=== PATIENT | female | born 1945 | race Caucasian/White ===

== ENCOUNTER → 2016-08-11 | Day surgery (SDC) | payer BC ==
[2016-07-28 09:38] VITALS: Ht 167.6 cm; Wt 121.4 kg
[~2016-08-11] VITALS: Ht 167.6 cm; Wt 121.4 kg
[~2016-08-11] MED LIST: 500ML BSS 0.3ML EPI 1:1000PF IRRIG ONE; ACET1TAB84 PO; ACETAMINOPHEN 325 MG TAB PO PRN; ACP20 PO; ALBU18002 INH; ALBU1AER9 INH; AMLO2.5T PO; AMVISC PLAIN 0.8ML SYRINGE INT OCU ONE; AMVISC PLUS 0.8ML SYRINGE INT OCU ONE; ATROPINE SULFATE 0.1 MG/ML 5ML SYR IV PRN; BACL1TAB PO; BMX1 PO; BROM0.07 OPL; BSS FLUSH ONE; CALC-354 PO; CLTP PO; CNT PO; CYM/30 PO; CZR50 PO; DABI150C PO; DICL1GEL28 TOP; DICL1GEL34 PO; DIGO0.1219 PO; DIGO0.122 PO; DOFE250C PO; DULO-24 PO; EpHEDrine SULFATE INJ 50 MG/ML AMP IV PRN; EpINEphrine INJ 1MG/ML AMP 1 MG/ML AMP ONE; FENTANYL CITRATE INJ 50 MCG/1 ML 2 ML VIAL IV PRN; FLUMAZENIL 0.1 MG/1 ML 10 ML VIAL IV PRN; GATI1SOL2 OP; GATIFLOXACIN OP SOLN PER DROP CHARGE OPL SCH; HYDROmorphone INJ 2 MG/ML SYR/VIAL IV PRN; JUICE PLUS PO; LABETALOL HCL IV 5 MG/ML 20ML IV PRN; LACTATED RINGER'S 1000ML 500 ML IV SCH; LEVO150T9 PO; LIDOCAINE 3.5% OPH GEL PER APPLICATION CHARGE ONE; LIDOCAINE HCL 1% MPF 2 ML VIAL ONE; LOSA1TAB38 PO; MEPERIDINE HCL 25 MG/ML CARP IV PRN; METO100T14 PO; MIDAZOLAM HCL 1 MG/ML 2ML VIAL ONE; MULTTAB PO; NALOXONE HCL 0.4 MG/1 ML VIAL/CARP IV PRN; NAPR1TAB9 PO; OCUCOAT 1 ML SOLN IO ONE; ONDANSETRON INJ 2 MG/ML 2 ML VIAL IV PRN; OXGN; OXYC1TAB3 PO; PHENYLEPHRINE 100MCG/ML 5ML SYR IV PRN; POVIDONE-IODINE OP SOLN 30 ML BTL ONE; PRDFOPS OPL; PREG200C PO; PROAIR INH; PROPARACAINE 0.5% OP SOLN PER DROP CHARGE OPL SCH; PSEU60TA80 PO; RABE20TA5 PO; TOBRAMYCIN/DEXAMETHASONE OPH OINT PER APPLN CHARGE ONE; TRML160 EXT; ZOLP5TAB PO; [UNRECOGNIZED DRUG - CODE] PO
[2016-08-11] MEDS: PHENYLEPHRINE HCL 2.5% OP SOLN PER DROP CHARGE OPL SCH ×2 (09:19→09:24)
[2016-08-11] MEDS: TROPICAMIDE 1% OP SOLN PER DROP CHARGE OPL SCH ×2 (09:20→09:25)
[2016-08-11] MEDS: CYCLOPENTOLATE HCL 1% OP SOLN PER DROP CHARGE OPL SCH ×2 (09:21→09:26)
[2016-08-11] MEDS: KETOROLAC 0.5% OP SOLN PER DROP CHARGE OPL SCH ×2 (09:22→09:27)
--- NOTE | 2016-08-11 09:36 | History & Physical Bridge - [place] ---
H&P Re-Evaluation Bridge Note: I have examined the patient, reviewed the History & Physical and in the interval since the performance of the History & Physical I have noted the following changes of clinical significance: Diagnosis: Left Cataract Procedure: Left Cataract Removal with Lens Implant No changes noted
--- NOTE | 2016-08-11 10:20 | Discharge Instructions-SurgCtr ---
Discharge Instructions Visit Reason for Visit: Cataract Left Eye Discharge Discharge Diagnosis / Problem: cataract Discharge Goals Goal(s): Improve function Activity Recommendations Activity Limitations: per Instructions/Follow-up section Anesthesia . Post Anesthesia Instructions: If you have had General Anesthesia or IV Sedation: * Do not drive today. * Resume driving when surgeon permits. * Do not make important decisions or sign legal documents today. * Call surgeon for: 1. Temperature elevations greater than 101 degrees F. 2. Uncontrollable pain. 3. Excessive bleeding. 4. Persistent nausea and vomiting. 5. Medication intolerance (nausea, vomiting or rash). * For nausea and vomiting use only clear liquids such as: tea, soda, bouillon until nausea subsides, then gradually increase diet as tolerated. * If you have any concerns or questions, call your surgeon's office. If physician is unavailable and it is an emergency, call 911 or go to the nearest emergency room. . Instructions / Follow-Up Instructions / Follow-Up ACTIVITY RECOMMENDATIONS: * No strenuous lifting, jogging or running for 4 days * No swimming or yard work for 1 week. * Limited bending is permitted, such as putting on shoes. RETURN TO SCHOOL/WORK: No work until seen by physician in office. MEDICATIONS: Resume previous medications unless instructed otherwise by your surgeon. This includes eye drops for glaucoma. Zymaxid/Gatifloxacin (wakefield cap) - one drop every 2 hours until bedtime Nevanac/Ilevro/Prolensa/Ketorolac (sin cap) - one drop every 4 hours until bedtime Prednisolone (white/pink cap, SHAKE WELL) - one drop every 2 hours until bedtime Starting tomorrow - all 3 drops every 4 hours until seen in the office Optive drops - as needed for discomfort SPECIAL CARE INSTRUCTIONS: * Wear eyeshield when sleeping, for four nights. * You may wear your own glasses or sunglasses while awake. * You may read or watch TV * You may shower and wash your face, but be gentle around the eye and pat dry. * Blurry vision and mild irritation are normal. * Call office if pain is more severe or vision becomes dark at . FOLLOW UP VISIT: Follow-up with Dr Cruz tomorrow. Diet Recommendations Home Diet: resume previous diet Procedures Procedures Performed: Left Cataract Phacoemulsification With Intraocular Lens Implant; Toric Lens Pending Studies Studies pending at discharge: no Medical Emergencies . Who to Call and When: Medical Emergencies: If at any time you feel your situation is an emergency, please call 911 immediately. . Non-Emergent Contact Non-Emergency issues call your: Video Journalist . . "Provider Documentation" section prepared by Evelio Cruz.
--- NOTE | 2016-08-11 10:22 | [facility] Operative Report ---
Operative Report 1. PREOPERATIVE DIAGNOSIS: Cataract of the left eye. 2. POSTOPERATIVE DIAGNOSIS: Same. 3. PROCEDURE: Phacoemulsification with intraocular lens implantation of the left eye. SURGEON: Dr. Evelio Cruz. ANESTHESIA: Topical Lidocaine gel, 1% Non- Preserved intracameral Lidocaine, and monitored intravenous sedation. INDICATIONS FOR THE PROCEDURE: The patient is a 70 - year-old female with a history of cataract of the left eye causing significant visual impairment. The details of the proposed procedure were explained to the patient who asked appropriate questions and following discussion of all risks, benefits and alternatives agreed to have the procedure done. Patient had corneal astigmatism and therefore elected to have a toric lens placed. 4. OPERATION AND FINDINGS: DESCRIPTION OF PROCEDURE: After informed consent was obtained, the patient was placed in an upright position and the cornea was marked at 167 degrees using the [employer] corneal marking tool. The patient was brought to the Operating Room at the [facility]. The patient was placed in a supine position and then the left eye was prepped and draped in the usual sterile fashion for intraocular surgery. A drop of topical Lidocaine gel was placed in the operative eye. A wire lid speculum was then placed in the fornices. A corneal paracentesis was then created temporally. The Non-Preserved Lidocaine was then instilled into the anterior chamber. The anterior chamber was then pressurized with viscoelastic. A 2.0 mm clear corneal incision was then created temporally. A cystotome was inserted into the anterior chamber and used to create a tear in the anterior lens capsule. This capsular tear was then used to create a small flap and the flap was dragged in a counterclockwise direction in order to create a continuous curvilinear capsulorrhexis. Hydrodissection was accomplished with balanced salt solution. Phacoemulsification of the lens nucleus was then performed in a standard divide- and-conquer technique. The phaco time was 35 seconds with an average power of 15 %. The remaining cortical material was removed using irrigation aspiration. The capsular bag was then filled with viscoelastic. A Peter [id number] +24.0 diopters lens was then loaded into the injector and injected into the capsular bag. The lens was aligned with the previously made corneal cheng. The remaining viscoelastic was removed with the irrigation aspiration handpiece. The wound was hydrated and then checked and found to be watertight. The intraocular pressure was checked and found to be adequate. The wire lid speculum was removed and the patient's face was cleaned and dried. TobraDex ointment was placed in the inferior fornix. The patient was discharged to the Recovery Room having tolerated the procedure well. There were no complications. The patient will be seen tomorrow in the office for follow-up. I attest to the content of the Intraoperative Record and any orders documented therein. Any exceptions are noted below.
--- NOTE | 2016-08-11 10:36 | Anesthesia Progress Nt - [facility] ---
Anesthesia Post Op Note Date & Time Aug 11, 2016 at 10:35 Vital Signs Pain Intensity: 0 Vital Signs Past 12 Hours Date Time Temp Pulse Resp B/P Pulse Ox O2 Delivery O2 Flow Rate FiO2 08/11/16 10:24 37.5 53 16 105/51 95 Room Air 08/11/16 09:08 37.1 92 16 111/79 96 Room Air Notes Mental Status: alert / awake / arousable, participated in evaluation Pt Amnestic to Procedure: Yes Nausea / Vomiting: adequately controlled Pain: adequately controlled Airway Patency, RR, SpO2: stable & adequate BP & HR: stable & adequate Hydration State: stable & adequate Anesthetic Complications: no major complications apparent
[2016-08-11 10:54] VITALS: BP 112/67; PULSE 48; TEMP 37.4; O2SAT 95
== END | disposition home or self-care (01) ==
LOC: X.SURG 08:48
PROVIDERS: ATTEND Ophthalmology
DX: H26.9 Unspecified cataract (principal); H54.7 Unspecified visual loss; E05.00 Thyrotoxicosis with diffuse goiter without thyrotoxic crisis or storm; M45.9 Ankylosing spondylitis of unspecified sites in spine; G89.29 Other chronic pain; M25.50 Pain in unspecified joint; E11.9 Type 2 diabetes mellitus without complications; E66.01 Morbid (severe) obesity due to excess calories; I48.91 Unspecified atrial fibrillation; M19.90 Unspecified osteoarthritis, unspecified site; N18.3 Chronic kidney disease, stage 3 (moderate); I12.9 Hypertensive chronic kidney disease with stage 1 through stage 4 chronic kidney disease, or unspecified chronic kidney disease; Z68.41 Body mass index [BMI] 40.0-44.9, adult

== ENCOUNTER 2016-08-13 18:39 | Observation (INO) | payer BC, OTHER ==
[~2016-08-13] VITALS: Ht 167.6 cm; Wt 122.9 kg
[~2016-08-13 18:39] MED LIST changes: -500ML BSS 0.3ML EPI 1:1000PF IRRIG ONE; -ACETAMINOPHEN 325 MG TAB PO PRN; -ALBU18002 INH; -AMVISC PLAIN 0.8ML SYRINGE INT OCU ONE; -AMVISC PLUS 0.8ML SYRINGE INT OCU ONE; -ATROPINE SULFATE 0.1 MG/ML 5ML SYR IV PRN; -BROM0.07 OPL; -BSS FLUSH ONE; -CALC-354 PO; -DICL1GEL34 PO; -DIGO0.1219 PO; -EpHEDrine SULFATE INJ 50 MG/ML AMP IV PRN; -EpINEphrine INJ 1MG/ML AMP 1 MG/ML AMP ONE; -FENTANYL CITRATE INJ 50 MCG/1 ML 2 ML VIAL IV PRN; -FLUMAZENIL 0.1 MG/1 ML 10 ML VIAL IV PRN; -GATI1SOL2 OP; -GATIFLOXACIN OP SOLN PER DROP CHARGE OPL SCH; -HYDROmorphone INJ 2 MG/ML SYR/VIAL IV PRN; -LABETALOL HCL IV 5 MG/ML 20ML IV PRN; -LACTATED RINGER'S 1000ML 500 ML IV SCH; -LIDOCAINE 3.5% OPH GEL PER APPLICATION CHARGE ONE; -LIDOCAINE HCL 1% MPF 2 ML VIAL ONE; -LOSA1TAB38 PO; -MEPERIDINE HCL 25 MG/ML CARP IV PRN; -MIDAZOLAM HCL 1 MG/ML 2ML VIAL ONE; -MULTTAB PO; -NALOXONE HCL 0.4 MG/1 ML VIAL/CARP IV PRN; -NAPR1TAB9 PO; -OCUCOAT 1 ML SOLN IO ONE; -ONDANSETRON INJ 2 MG/ML 2 ML VIAL IV PRN; -PHENYLEPHRINE 100MCG/ML 5ML SYR IV PRN; -POVIDONE-IODINE OP SOLN 30 ML BTL ONE; -PRDFOPS OPL; -PROAIR INH; -PROPARACAINE 0.5% OP SOLN PER DROP CHARGE OPL SCH; -RABE20TA5 PO; -TOBRAMYCIN/DEXAMETHASONE OPH OINT PER APPLN CHARGE ONE; -TRML160 EXT; -ZOLP5TAB PO
[2016-08-13 19:48] LABS: BASO % 0.5 %; BASO ABS # 0.04 K/uL (0-0.2); COMPLETE YES; EOS % 3.3 %; HEMATOCRIT 41.9 % (37-47); IG% 0.4 %; LYMPH % 20.3 %; LYMPH ABS # 1.54 K/uL (1.2-3.4); MEAN CELL VOLUME 87.1 fL (80-100); MEAN CORPUSCULAR HEMOGLOBIN 28.9 pg (25-34); MEAN CORPUSCULAR HGB CONC 33.2 g/dl (32-36); MEAN PLATELET VOLUME 10.1 fL (7.4-10.4); MONO % 11.7 %; NEUT % 63.8 %; PLATELET COUNT 194 K/uL (130-400); RED BLOOD COUNT 4.81 M/uL (4.2-5.4); WHITE BLOOD COUNT 7.59 K/uL (4.8-10.8)
[2016-08-13] MEDS ORDERED: GATI1SOL2 OP (19:56)
[2016-08-13 19:57] LABS: PARTIAL THROMBOPLASTIN RATIO 1.3; PROTHROMBIN TIME (PATIENT) 10.8 SECONDS (9.0-12.0)
[2016-08-13] MEDS ORDERED: BMX1 PO (19:59)
--- NOTE | 2016-08-13 19:59 | DIAGNOSTIC IMAGING REPORT ---
CHEST ONE VIEW PORTABLE HISTORY: Atypical chest pain. COMPARISON: Chest 03/26/2015. FINDINGS: There is a right shoulder prosthesis. Lumbar spinal fusion hardware is again noted. Linear density at the left lung base favors subsegmental atelectasis or scarring. The lungs are otherwise clear. The heart is normal in size. No pleural effusions. No pneumothorax. IMPRESSION: Left basilar linear density which favors subsegmental atelectasis or scarring. Otherwise, no acute process within the chest. Electronically signed by: Librado Mena M.D. 08/13/2016 7:57 PM Dictated Date/Time: 08/13/2016 7:56 PM
[2016-08-13] MEDS ORDERED: DIGO0.1219 PO (20:03)
[2016-08-13] MEDS ORDERED: DICL1GEL34 PO (20:03)
[2016-08-13 20:06] LABS: BUN/CREATININE RATIO 18.8 (10-20); CALCIUM 9.6 mg/dl (8.5-10.1); CREATININE 1.1 mg/dl (0.60-1.20); POTASSIUM 4.1 mmol/L (3.5-5.1)
[2016-08-13] MEDS ORDERED: PROAIR INH (20:08)
[2016-08-13] MEDS ORDERED: MULTTAB PO (20:08)
[2016-08-13] MEDS ORDERED: LOSA1TAB38 PO (20:08)
[2016-08-13] MEDS ORDERED: RABE20TA5 PO (20:08)
[2016-08-13] MEDS ORDERED: PRDFOPS OPL (20:08)
[2016-08-13] MEDS ORDERED: BROM0.07 OPL (20:08)
[2016-08-13] MEDS ORDERED: NITROGLYCERIN 0.4 MG SL PER TAB CHARGE SL PRN (21:15)
[2016-08-13] MEDS ORDERED: ONDANSETRON INJ 2 MG/ML 2 ML VIAL IV PRN (21:15)
[2016-08-13] MEDS ORDERED: ALBU18002 INH (21:28)
[2016-08-13] MEDS ORDERED: NAPR1TAB9 PO (21:28)
[2016-08-13] MEDS ORDERED: ZOLP5TAB PO (21:28)
[2016-08-13] MEDS ORDERED: CALC-354 PO (21:28)
[2016-08-13] MEDS ORDERED: TRML160 EXT (21:28)
[2016-08-13] MEDS ORDERED: BACLOFEN 10 MG TAB PO PRN (21:30)
[2016-08-13] MEDS ORDERED: ALBUTEROL HFA 8 GM INHALER INH PRN (21:30)
[2016-08-13] MEDS ORDERED: DICLOFENAC SOD 1% GEL 100 GM TUBE EXT PRN (21:30)
[2016-08-13] MEDS ORDERED: ASPIRIN 81 MG CHEW PO ONE (21:30)
[2016-08-13] MEDS ORDERED: ZOLPIDEM TARTRATE 5 MG TAB PO PRN (21:30)
[2016-08-13] MEDS ORDERED: IV FLUIDS COMPLETED PRN (21:45)
--- NOTE | 2016-08-13 22:12 | History and Physical ---
History & Physical Date & Time of Service: Aug 13, 2016 at 21:28 Chief Complaint: Chest Pain/Tightness Primary Care Physician: Samra Nieves M.D. History of Present Illness Source: patient, clinic records, hospital records This is a pleasant 70 y/o female with PMH of Afib on chronic anticoagulation with Pradaxa, diastolic CHF, DM 2, morbid obesity, TIERRA on CPAP and nocturnal O2 , CKD stage III, who presents to the ED for chest pain. Pt sees Dr. Nieves for primary care and Dr. Lopez for cardiology. Pt had cataract surgery 2 days ago which was uneventful and she was feeling normally. Then this afternoon while sitting watching a movie she suddenly developed substernal chest tightness with radiation to her jaw and tongue. The pain was constant for approximately 25 minutes then waxed and waned for additional 20 minutes before resolving completely. She was not exerting herself during the episode. She did not take any medication. In the ER she remains chest pain free. She denies prior similar CP. Pt has associated mild frontal pressure YOUNG which persists. She states she is only MARTIN walking up 1 set of stairs during episodes of atrial fibrillation. She usually can tell she is AF due to fatigue, but denies feeling this way recently. She reports chronic burning pain of bilateral feet and spasms in bilateral calves. She takes oxycodone for her LE pains. Denies associated diaphoresis, dizziness, N/V, reflux, palpitations, cough, wheezing, SOB, edema, wt gain, rash on the chest, anxiety, abnormal bleeding. No recent heavy lifting. Denies hx of CAD. Pt denies having a stress test in past several years. Past Medical/Surgical History Medical Problems: (1) Ankylosing spondylitis Status: Chronic (2) Asthma Status: Chronic (3) Atrial fibrillation Status: Chronic (4) Chronic anticoagulation Status: Chronic (5) Chronic pain Status: Chronic (6) CKD (chronic kidney disease), stage III Status: Chronic (7) DM type 2 (diabetes mellitus, type 2) Status: Chronic (8) Graves disease Status: Chronic (9) HTN (hypertension) Status: Chronic (10) Hypertension Status: Chronic (11) Hypothyroidism Status: Chronic (12) Nocturnal hypoxemia Status: Chronic (13) Obesity, morbid, BMI 40.0-49.9 Status: Chronic (14) TIERRA on CPAP Status: Chronic (15) Osteoarthritis, shoulder Status: Chronic (16) Polyneuropathy Status: Chronic (17) Thoracic and lumbosacral neuritis Status: Chronic Surgical Problems: (1) H/O colonoscopy Status: Chronic (2) H/O tubal ligation Status: Chronic (3) History of cataract surgery Status: Resolved (4) History of left knee replacement Status: Chronic (5) History of right hip replacement Status: Chronic (6) S/P appendectomy Status: Chronic (7) S/P hernia repair Status: Chronic (8) S/P laparoscopic cholecystectomy Status: Chronic (9) S/P spinal fusion Status: Chronic (10) S/P tonsillectomy and adenoidectomy Status: Chronic Family History Diabetes mellitus FATHER Hypertension FATHER Stroke FATHER MOTHER Social History Smoking Status: Never Smoker Alcohol Use: occasionally Drug Use: none Marital Status: Housing status: lives with significant other Immunizations History of Influenza Vaccine: N/A Influenza Vaccine Date: May 06, 2006 History of Tetanus Vaccine?: Yes Tetanus Immunization Date: Aug 25, 2005 History of Pneumococcal: No History of Hepatitis B Vaccine: Yes Multi-Drug Resistant Organisms History of MDRO: No Allergies Coded Allergies: Piroxicam (Verified Allergy, Intermediate, RASH, 08/11/16) Aminoglycosides (Verified Allergy, Unknown, rash, 08/11/16) Replaces BACITRACIN/NE Bacitracin (Verified Allergy, Unknown, rash, 08/11/16) Replaces BACITRACIN/NE Neomycin (Verified Allergy, Unknown, RASH, 08/11/16) Replaces BACITRACIN/NE Nickel (Verified Allergy, Unknown, rash, 08/11/16) Polymyxin B (Verified Allergy, Unknown, rash, 08/11/16) Replaces BACITRACIN/NE Statins (Verified Adverse Reaction, Mild, MUSCLE AND JOINT PAIN, 08/11/16) Home Medications Scheduled Amlodipine (Norvasc), 2.5 MG PO DAILY Bromfenac Sodium (Ophth) (Prolensa), 1 DROP OPL DAILY Bumetanide (Bumetanide), 1 MG PO BID Calcium Carbonate-Cholecalcife (Caltrate 600+D), 1 TAB PO BID Chlorzoxazone (Chlorzoxazone), 250 MG PO QID Dabigatran Etexilate Mesylate (Pradaxa), 150 MG PO BID Digoxin (Digox), 125 MCG PO DAILY Dofetilide (Tikosyn), 250 MCG PO BID Duloxetine HCl (Cymbalta), 40 MG PO HS Duloxetine HCl (Cymbalta), 1 CAP PO QPM Levothyroxine Sodium (Levothyroxine Sodium), 1 TAB PO QAM Losartan Potassium (Cozaar), 1 TAB PO DAILY Metoprolol Tartrate (Lopressor) (Lopressor), 100 MG PO BID Multivitamins/Minerals (Mvi With Minerals), 1 TAB PO DAILY Oxygen (Oxygen), 2.5 LITERS NA HS Prednisolone Acetate (Prednisolone Acetate), 1 DROP OPL TID Pregabalin (Lyrica), 200 MG PO TID Rabeprazole Sodium (Aciphex), 20 MG PO QAM [Juice Plus], 2 CAP PO TIDM Scheduled PRN Albuterol Sulfate (Proair Respiclick), 2 PUFFS INH Q4H PRN for SOB/Wheezing Baclofen (Lioresal), 5 MG PO BID PRN for Muscle Spasms Diclofenac Sodium (Topical) (Diclofenac Sodium), 1 APPLN PO QID PRN for Pain Naproxen (Aleve), 220 MG PO DAILY PRN for severe pain Oxycodone Ir (Roxicodone Ir), 5 MG PO Q4H PRN for Pain Triamcinolone (Triamcinolone Acetonide), 1 APPLN EXT BID PRN for Itching Zolpidem Tartrate (Ambien), 5 MG PO HS PRN for Insomnia Miscellaneous Medications Gatifloxacin (Ophth) (Gatifloxacin), 1 DROP OP Review of Systems Ten point review of systems performed with pertinent positives and negatives noted in HPI. Physical Exam Vital Signs Date Time Temp Pulse Resp B/P Pulse Ox O2 Delivery O2 Flow Rate FiO2 08/13/16 20:03 56 18 143/68 94 Room Air 08/13/16 19:38 94 Room Air 08/13/16 19:02 58 08/13/16 18:40 37.1 58 20 153/82 94 Room Air 08/13/16 18:40 94 Room Air General Appearance: no apparent distress, + obese, + pertinent finding (alert pleasant 70 y/o female, no distress) Head: normocephalic, atraumatic Eyes: normal inspection, PERRL, EOMI ENT: hearing grossly normal, pharynx normal Neck: supple, no JVD, trachea midline Respiratory/Chest: chest non-tender, lungs clear, normal breath sounds, no respiratory distress, no accessory muscle use Cardiovascular: regular rate, rhythm, normal peripheral pulses, + systolic murmur (grade II) Abdomen/GI: normal bowel sounds, non tender, soft Extremities/Musculoskelatal: normal inspection, no calf tenderness, no pedal edema Neurologic/Psych: alert, normal mood/affect, oriented x 3, + pertinent finding (grossly nonfocal) Skin: normal color, warm/dry, no rash (no rash on the chest) Diagnostics Laboratory Results Results Past 24 Hours Test 08/13/16 19:36 08/13/16 19:37 Range/Units White Blood Count 7.59 4.8-10.8 K/uL Red Blood Count 4.81 4.2-5.4 M/uL Hemoglobin 13.9 12.0-16.0 g/dL Hematocrit 41.9 37-47 % Mean Corpuscular Volume 87.1 80-100 fL Mean Corpuscular Hemoglobin 28.9 25-34 pg Mean Corpuscular Hemoglobin Concent 33.2 32-36 g/dl Platelet Count 194 130-400 K/uL Mean Platelet Volume 10.1 7.4-10.4 fL Neutrophils (%) (Auto) 63.8 % Lymphocytes (%) (Auto) 20.3 % Monocytes (%) (Auto) 11.7 % Eosinophils (%) (Auto) 3.3 % Basophils (%) (Auto) 0.5 % Neutrophils # (Auto) 4.84 1.4-6.5 K/uL Lymphocytes # (Auto) 1.54 1.2-3.4 K/uL Monocytes # (Auto) 0.89 0.11-0.59 K/uL Eosinophils # (Auto) 0.25 0-0.5 K/uL Basophils # (Auto) 0.04 0-0.2 K/uL RDW Standard Deviation 43.9 36.4-46.3 fL RDW Coefficient of Variation 13.9 11.5-14.5 % Immature Granulocyte % (Auto) 0.4 % Immature Granulocyte # (Auto) 0.03 0.00-0.02 K/uL Prothrombin Time 10.8 9.0-12.0 SECONDS Prothromb Time International Ratio 1.0 0.9-1.1 Activated Partial Thromboplast Time 33.4 21.0-31.0 SECONDS Partial Thromboplastin Ratio 1.3 Sodium Level 141 136-145 mmol/L Potassium Level 4.1 3.5-5.1 mmol/L Chloride Level 103 98-107 mmol/L Carbon Dioxide Level 29 21-32 mmol/L Anion Gap 9.0 3-11 mmol/L Blood Urea Nitrogen 21 7-18 mg/dl Creatinine 1.10 0.60-1.20 mg/dl Est Creatinine Clear Calc Drug Dose 63.8 ml/min Estimated GFR () 58.9 Estimated GFR (Non- 50.8 BUN/Creatinine Ratio 18.8 10-20 Random Glucose 125 70-99 mg/dl Calcium Level 9.6 8.5-10.1 mg/dl Bedside Troponin I 0.010 0-0.045 ng/ml Diagnostic Radiology CHEST ONE VIEW PORTABLE HISTORY: Atypical chest pain. COMPARISON: Chest 03/26/2015. FINDINGS: There is a right shoulder prosthesis. Lumbar spinal fusion hardware is again noted. Linear density at the left lung base favors subsegmental atelectasis or scarring. The lungs are otherwise clear. The heart is normal in size. No pleural effusions. No pneumothorax. IMPRESSION: Left basilar linear density which favors subsegmental atelectasis or scarring. Otherwise, no acute process within the chest. EKG sinus rhythm with 1st degree AV block, LAFB, no significant change when compared to prior EKG in [facility] from July 20 2016 Impression Assessment and Plan CHEST PAIN- resolved Rule out ACS- risk factors include HTN, DM, obesity CXR- L base linear atelectasis vs. scarring Initial troponin negative EKG- sinus with 1st degree AV block, LAFB, no significant change from prior EKG Trend serial cardiac enzymes Check fasting lipid panel in am Repeat EKG in am NPO after midnight Consult cardiology H/O ATRIAL FIBRILLATION Currently in sinus rhythm, rate controlled Continue Tikosyn, digoxin, metoprolol Continue anticoagulation with Pradaxa HYPERTENSION BP is in 140s-150s Continue amlodipine, losartan, metoprolol CHRONIC DIASTOLIC CHF Echo 03/2015 showed EF 60-65%, mild LVH, mild AR, mild TR Appears euvolemic Continue Bumex DM TYPE 2 Diet controlled; last A1c 6.6 in 07/2016 Diabetic diet Monitor BSG AC HS TIERRA / NOCTURNAL HYPOXEMIA Continue CPAP with nocturnal O2 ASTHMA Not in exacerbation Continue PRN inhaler HYPOTHYROIDISM Continue levothyroxine CHRONIC PAIN Continue PRN oxycodone RECENT CATARACT SURGERY Continue eye drops GERD Continue PPI DVT PROPHYLAXIS On Pradaxa CODE STATUS Full code per my discussion with the patient. Pt seen in collaboration with Dr. Jeffrey. Please see his addendum. ATTENDING ADDENDUM delayed entry date of service as noted above care coordinated with VON Viramontes please refer to her notes for full details, I agree with her notes patient seen and examined, records reviewed by myself as well on exam, patient seen sitting up in bed chest pain has resolved denies dyspnea, dizziness, palpitations no other symptoms VS noted and reviewed oriented x 3, not in distress, speaks in sentences with no effort nor accessory muscle use normal rate, regular rhythm, grade 2 systolic murmur clear breath sounds bilaterally non distended, soft, nontender no bipedal edema, erythema, warmth no neuro deficits crea 1 trop negative EKG no signs of acute ischemia or infarct ASSESSMENT/PLAN> CHEST PAIN R/O ACS serial cardiac markers echo Cardio consulted HISTORY OF A FIB continue usual medications other diagnoses and plan of care as per VON Viramontes's notes Jermaine Jeffrey MD VTE Prophylaxis VTE Risk Assessment Done? Y/N: Yes Risk Level: Moderate Given or contraindicated: Other Anticoagulation
[2016-08-13 22:20] VITALS: BP 129/79; PULSE 67; TEMP 37.2; O2SAT 93; Ht 167.6 cm; Wt 122.9 kg
[2016-08-13] MEDS ORDERED: ACETAMINOPHEN 325 MG TAB ONE (23:50)
[2016-08-13] MEDS ORDERED: PREGABALIN 100 MG CAP ONE (23:50)
[2016-08-13] MEDS: OXYCODONE HCL IR 5 MG TAB (IMMEDIATE RELEASE) PO PRN (23:53)
[2016-08-14] VITALS (7 sets, daily range): BP systolic 93–129; BP diastolic 48–79; PULSE 54–62; TEMP 36.7–36.8; O2SAT 89–97
[2016-08-14] MEDS ORDERED: ACETAMINOPHEN 325 MG TAB PO PRN
--- NOTE | 2016-08-14 00:54 | EMERGENCY ROOM VISIT NOTE ---
History Report prepared by Mary Ann: Annita Baer Under the Supervision of: Dr. Richard Jimenez M.D. 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 She was sitting in a chair watching television when her symptoms began. She had pain in her chest that she describes as a "tightness." Her pain radiated into her jaw and tongue. Her symptoms lasted for about 25 minutes. The patient denies nausea , vomiting, diarrhea, shortness of breath, dyspnea, diaphoresis, cough, fever, cold symptoms, rash, and any recent illness. She has chronic leg pain for which she takes oxycodone. She denies any new leg pain or swelling. She is on blood thinners for a history of atrial fibrillation. Her most recent stress test was 3 -5 years ago. 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 Review of Systems See HPI for pertinent positives & negatives. A total of 10 systems reviewed and were otherwise negative. 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 Surgical Problems: (1) H/O colonoscopy (2) H/O tubal ligation (3) History of cataract surgery (4) History of left knee replacement (5) History of right hip replacement (6) S/P appendectomy (7) S/P hernia repair (8) S/P laparoscopic cholecystectomy (9) S/P spinal fusion (10) S/P tonsillectomy and adenoidectomy Family History No significant family history Social History Smoking Status: Never Smoker Alcohol Use: none Marital Status: Housing Status: lives with family Occupation Status: employed Current/Historical Medications Scheduled Amlodipine (Norvasc), 2.5 MG PO DAILY Bromfenac Sodium (Ophth) (Prolensa), 1 DROP OPL DAILY Bumetanide (Bumetanide), 1 MG PO BID Calcium Carbonate-Cholecalcife (Caltrate 600+D), 1 TAB PO BID Chlorzoxazone (Chlorzoxazone), 250 MG PO QID Dabigatran Etexilate Mesylate (Pradaxa), 150 MG PO BID Digoxin (Digox), 125 MCG PO DAILY Dofetilide (Tikosyn), 250 MCG PO BID Duloxetine HCl (Cymbalta), 40 MG PO HS Duloxetine HCl (Cymbalta), 1 CAP PO QPM Levothyroxine Sodium (Levothyroxine Sodium), 1 TAB PO QAM Losartan Potassium (Cozaar), 1 TAB PO DAILY Metoprolol Tartrate (Lopressor) (Lopressor), 100 MG PO BID Multivitamins/Minerals (Mvi With Minerals), 1 TAB PO DAILY Oxygen (Oxygen), 2.5 LITERS NA HS Prednisolone Acetate (Prednisolone Acetate), 1 DROP OPL TID Pregabalin (Lyrica), 200 MG PO TID Rabeprazole Sodium (Aciphex), 20 MG PO QAM [Juice Plus], 2 CAP PO TIDM Scheduled PRN Albuterol Sulfate (Proair Respiclick), 2 PUFFS INH Q4H PRN for SOB/Wheezing Baclofen (Lioresal), 5 MG PO BID PRN for Muscle Spasms Diclofenac Sodium (Topical) (Diclofenac Sodium), 1 APPLN PO QID PRN for Pain Naproxen (Aleve), 220 MG PO DAILY PRN for severe pain Oxycodone Ir (Roxicodone Ir), 5 MG PO Q4H PRN for Pain Triamcinolone (Triamcinolone Acetonide), 1 APPLN EXT BID PRN for Itching Zolpidem Tartrate (Ambien), 5 MG PO HS PRN for Insomnia Miscellaneous Medications Gatifloxacin (Ophth) (Gatifloxacin), 1 DROP OP Allergies Coded Allergies: Piroxicam (Verified Allergy, Intermediate, RASH, 08/11/16) Aminoglycosides (Verified Allergy, Unknown, rash, 08/11/16) Replaces BACITRACIN/NE Bacitracin (Verified Allergy, Unknown, rash, 08/11/16) Replaces BACITRACIN/NE Neomycin (Verified Allergy, Unknown, RASH, 08/11/16) Replaces BACITRACIN/NE Nickel (Verified Allergy, Unknown, rash, 08/11/16) Polymyxin B (Verified Allergy, Unknown, rash, 08/11/16) Replaces BACITRACIN/NE Statins (Verified Adverse Reaction, Mild, MUSCLE AND JOINT PAIN, 08/11/16) Physical Exam Vital Signs Date Time Temp Pulse Resp B/P Pulse Ox O2 Delivery O2 Flow Rate FiO2 08/13/16 20:03 56 18 143/68 94 Room Air 08/13/16 19:38 94 Room Air 08/13/16 19:02 58 08/13/16 18:40 37.1 58 20 153/82 94 Room Air 08/13/16 18:40 94 Room Air Physical Exam Constitutional: Vital signs reviewed. Eyes: Pupils are equal round reactive to light. Conjunctiva are noninjected. ENT: Pharynx is clear without erythema or exudate. Mucous membranes are moist. Neck supple without meningeal signs. Respiratory: Clear to auscultation bilaterally. Breath sounds are equal bilaterally. Cardiovascular: Regular rate and rhythm. No rubs or gallops. GI: Soft, nondistended and nontender. Bowel sounds are present. Musculoskeletal: No peripheral edema. No lower extremity tenderness. Integumentary: No cyanosis. Neurological: The patient is awake and alert. No focal deficits. Psychiatric: Normal affect. Medical Decision & Procedures ER Provider Diagnostic Interpretation: Radiology results as stated below per my review and the radiologist's interpretation: CHEST ONE VIEW PORTABLE HISTORY: Atypical chest pain. COMPARISON: Chest 03/26/2015. FINDINGS: There is a right shoulder prosthesis. Lumbar spinal fusion hardware is again noted. Linear density at the left lung base favors subsegmental atelectasis or scarring. The lungs are otherwise clear. The heart is normal in size. No pleural effusions. No pneumothorax. IMPRESSION: Left basilar linear density which favors subsegmental atelectasis or scarring. Otherwise, no acute process within the chest. Electronically signed by: Librado Mena M.D. 08/13/2016 7:57 PM Dictated Date/Time: 08/13/2016 7:56 PM Laboratory Results 08/13/16 19:36 Red Blood Count 4.81, Mean Corpuscular Volume 87.1, Mean Corpuscular Hemoglobin 28.9, Mean Corpuscular Hemoglobin Concent 33.2, Mean Platelet Volume 10.1, Neutrophils (%) (Auto) 63.8, Lymphocytes (%) (Auto) 20.3, Monocytes (%) (Auto) 11.7, Eosinophils (%) (Auto) 3.3, Basophils (%) (Auto) 0.5, Neutrophils # (Auto ) 4.84, Lymphocytes # (Auto) 1.54, Monocytes # (Auto) 0.89, Eosinophils # (Auto ) 0.25, Basophils # (Auto) 0.04 08/13/16 19:36 Test 08/13/16 19:36 08/13/16 19:37 White Blood Count 7.59 K/uL (4.8-10.8) Red Blood Count 4.81 M/uL (4.2-5.4) Hemoglobin 13.9 g/dL (12.0-16.0) Hematocrit 41.9 % (37-47) Mean Corpuscular Volume 87.1 fL (80-100) Mean Corpuscular Hemoglobin 28.9 pg (25-34) Mean Corpuscular Hemoglobin Concent 33.2 g/dl (32-36) Platelet Count 194 K/uL (130-400) Mean Platelet Volume 10.1 fL (7.4-10.4) Neutrophils (%) (Auto) 63.8 % Lymphocytes (%) (Auto) 20.3 % Monocytes (%) (Auto) 11.7 % Eosinophils (%) (Auto) 3.3 % Basophils (%) (Auto) 0.5 % Neutrophils # (Auto) 4.84 K/uL (1.4-6.5) Lymphocytes # (Auto) 1.54 K/uL (1.2-3.4) Monocytes # (Auto) 0.89 K/uL (0.11-0.59) Eosinophils # (Auto) 0.25 K/uL (0-0.5) Basophils # (Auto) 0.04 K/uL (0-0.2) RDW Standard Deviation 43.9 fL (36.4-46.3) RDW Coefficient of Variation 13.9 % (11.5-14.5) Immature Granulocyte % (Auto) 0.4 % Immature Granulocyte # (Auto) 0.03 K/uL (0.00-0.02) Prothrombin Time 10.8 SECONDS (9.0-12.0) Prothromb Time International Ratio 1.0 (0.9-1.1) Activated Partial Thromboplast Time 33.4 SECONDS (21.0-31.0) Partial Thromboplastin Ratio 1.3 Anion Gap 9.0 mmol/L (3-11) Est Creatinine Clear Calc Drug Dose 63.8 ml/min Estimated GFR () 58.9 Estimated GFR (Non- 50.8 BUN/Creatinine Ratio 18.8 (10-20) Calcium Level 9.6 mg/dl (8.5-10.1) Bedside Troponin I 0.010 ng/ml (0-0.045) Laboratory results as reviewed by me. ECG Indication: chest pain Rate (beats per minute): 61 Rhythm: normal sinus Findings: 1st degree AV block, Q waves (V1-V3, inferior) Comparison ECG Date: 03/25/16 Change: no significant change ED Course 1899: The patient was evaluated in room B3B. A complete history and physical exam was performed. 2012: I reassessed the patient at this time. She is feeling better and resting comfortably. She is not having any chest discomfort. I discussed the results and treatment plan with the patient. I answered all pertaining questions that she had. She expressed understanding and verbalized agreement. 2016: I spoke with Dr. Lundberg. We discussed the patients results and treatment plan. [facility]. Medical Decision This is a 70-year-old female presents with chest pain. Differential diagnosis includes unstable angina, ME, GERD, anxiety, pleurisy. I did perform a limited focused review of portions of the patient's old chart on the electronic medical record. The patient has had no recent pertinent visits to this hospital. I did evaluate the patient as noted above. IV access was established. The patient was placed on a continuous vehicle monitor technician. I did order and personally review the patient's 12-lead EKG and chest x-ray as described above. I did order and review the patient's blood work as noted in the electronic medical record. Troponin is negative. I did discuss the test results with the patient. I did recommend hospitalization for repeat cardiac enzymes further evaluation. I did discuss case with the hospitalist and watch case polisher. Consults Time Called: 2014 Consulting Physician: Dr. Lundberg Returned Call: [address] Lunbderg. We discussed the patients results and treatment plan. [facility]. Impression Primary Impression: Precordial chest pain Scribe Attestation The scribe's documentation has been prepared under my direct and personally reviewed by me in its entirety. I confirm that the note above accurately reflects all work, treatment, procedures, and medical decision making performed by me. Departure Information Dispostion Being Evaluated By Hospitalist Referrals Samra Nieves M.D. (PCP) Patient Instructions My [facility]
[2016-08-14] MEDS: PREGABALIN 100 MG CAP PO SCH ×3 (01:30→13:32)
[2016-08-14 02:54] LABS: CKMB/CK RATIO 1.3 (0-3.0)
[2016-08-14] MEDS: OXYCODONE HCL IR 5 MG TAB (IMMEDIATE RELEASE) PO PRN (05:54)
[2016-08-14] MEDS ORDERED: LEVOTHYROXINE 150 MCG TAB PO SCH (06:30)
[2016-08-14 07:34] LABS: HEMATOCRIT 40.1 % (37-47); MEAN CELL VOLUME 88.1 fL (80-100); MEAN CORPUSCULAR HEMOGLOBIN 29.5 pg (25-34); MEAN CORPUSCULAR HGB CONC 33.4 g/dl (32-36); MEAN PLATELET VOLUME 10.1 fL (7.4-10.4); PLATELET COUNT 174 K/uL (130-400); RED BLOOD COUNT 4.55 M/uL (4.2-5.4); WHITE BLOOD COUNT 6.32 K/uL (4.8-10.8)
[2016-08-14] MEDS: PrednisoLONE ACET 1% OP SUSP 5 ML BTL OPL SCH ×2 (08:20→13:32)
[2016-08-14] MEDS: BUMETANIDE 1 MG TAB PO SCH ×2 (08:21→16:16)
[2016-08-14] MEDS: CHLORZOXAZONE 500 MG TAB PO SCH ×3 (08:21→16:16)
[2016-08-14 08:29] LABS: BUN/CREATININE RATIO 19.7 (10-20); CALCIUM 9.4 mg/dl (8.5-10.1); MAGNESIUM 2.4 mg/dl (1.8-2.4); POTASSIUM 4.1 mmol/L (3.5-5.1)
[2016-08-14 08:34] LABS: CHOLESTEROL/HDL RATIO 4.2; CKMB/CK RATIO 1.1 (0-3.0)
[2016-08-14] MEDS ORDERED: CEROVITE ADV FORMULA TAB PO SCH (09:00)
[2016-08-14] MEDS ORDERED: AMLODIPINE BESYLATE 5 MG TAB PO SCH (09:00)
[2016-08-14] MEDS ORDERED: METOPROLOL TARTRATE 100 MG TAB PO SCH (09:00)
[2016-08-14] MEDS ORDERED: DABIGATRAN ELEXILATE 75 MG CAP PO SCH (09:00)
[2016-08-14] MEDS ORDERED: DOFETILIDE 125 MCG CAP PO SCH (09:00)
[2016-08-14] MEDS ORDERED: LOSARTAN POTASSIUM 50 MG TAB PO SCH (09:00)
[2016-08-14] MEDS ORDERED: CALCIUM 600MG + VIT D 400 IU TAB PO SCH (09:00)
[2016-08-14] MEDS ORDERED: PANTOprazole SOD 40 MG TAB PO SCH (09:00)
--- NOTE | 2016-08-14 13:20 | Cardiology Consultation ---
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 Garcia Requesting Provider: Gladis Viramontes PA-C SUBJECTIVE: Ni Tolliver is a 70 year old female who follows with Dr. Lopez for history of PAF, on chronic anticoagulation and s/p multiple cardioversions, now on chronic antiarrhythmic with Tikosyn. Other history includes obesity, TIERRA, DM type II, hypertension, CKD, diastolic HF , and statin intolerance. She denies history of coronary artery disease. She believes her last stress test was 5-10 years ago. She was in her usual state of health yesterday and feeling well. Last night she was sitting and watching a movie and developed 8/10 jaw tightness that radiated down neck and to left side of her chest. Symptoms were "severe" for about 20 minutes and then began to fade. BP was 180/110 and EMS was summoned. When EMS arrived, pain was 2/10 and resolved with 4 baby ASA. When she arrived at ER, symptoms had fully resolved. NO associated diaphoresis, nausea, SOB, palpitations, dizziness. No recent weight gain, fluid retention, orthopnea, PND. No recent PAF episodes reported. No recent chest pain with exertional activities. She is limited due to chornic back pain/multiple surgeries but remains active as possible and often watches her twin grandchildren. At time of consult patient reports feeling well. Offers no complaints. Anxious to go home. Denies chest pain or SOB since admission. No palpitations. No orthopnea, PND or LE edema. Extensive ROS: A Complete Review of 10 Systems is as stated above or negative. PMH: Patient Active Problem List Diagnosis Code ADVANCE DIRECTIVE INFORMATION TOX DIF GOITER NO CRISIS E05.00 ANKYLOSING SPONDYLITIS M45.9 NEUROPATHY IN OTHER DIS G63 OTHER CHRONIC PAIN G89.29 JOINT PAIN-MULT JTS M25.50 DISC DIS [id number] M51.9 ACQUIRED HYPOTHYROID NEC E03.8 JOINT PAIN-L-LEG M25.569 LUMBAGO M54.5 VENTRAL HERNIA NOS K43.9 Type 2 diabetes mellitus with hemoglobin A1c goal of less than 7.0% ([facility]) E11.9 LUMBOSACRAL NEURITIS NOS M54.14, M54.17 Obesity, morbid (more than 100 lbs over ideal weight or BMI > 40) E66.01 KIDNEY DZ,CHRONIC (GFR 30-59) STAGE III N18.3 HTN, goal below 130/80 I10 ATRIAL FIBRILLATION I48.91 ANTICOAGULATION MANAGEMENT ENCOUNTER Z51.81, Z79.01 LONG-TERM USE OF ANTICOAGULANTS Z79.01 INCISIONAL HERNIA K43.2 Allergic rhinitis J30.9 OA (osteoarthritis) M19.90 Ventral hernia K43.9 MEDICATION USE AGREEMENT [id number] Hypoxemia R09.02 Obstructive sleep apnea G47.33 Past Surgical History Procedure Laterality Date Spinal fusion, 7-12 vert, post [address] Mederos - fused from T12 to S1; most recent in 05/19 Knee arthroscopy/surgery 2006 L knee replacement Pelvis/hip joint surgery nec 2002 R hip replacement Laparoscopy; cholecystectomy 2001 Removal of appendix 1973 Remove tonsils & adenoids, age 12+ 1950 Ligate/cut oviduct(s) 1977 Abd wall hernia repair, lap, reducible Colonoscopy, diagnostic (rectum) 2005 normal - next due 2015 Other (information) 04/13/11 Laparoscopy, lysis of omental adhesions and reduction of the incarcerated fat, resection incarcerated fat, repair of multiple hernias greater than 5, pictures were taken, some of the hernias were approximately 2 cm in size and some smaller 04/13/11 Dr. Morton at [facility] Abd wall hernia repair, lap, reducible 04/18/13 Laparoscopic repair of recurrent ventral hernia 04/18/13 Dr. Morton at [facility] Control Cabinet Assembler Miguel Ángel Worrell PA-C History Substance Use Topics Smoking status: Never Smoker Smokeless tobacco: Never Used Alcohol Use: Yes Comment: once a month Family History Problem Relation Age of Onset Cancer Maternal Grandfather rectal cancer Cancer Aunt maternal aunt - colon cancer Arthritis Mother Arthritis Father Diabetes Father Eye Problems Mother Hypertension Mother Hypertension Father Stroke Mother Stroke Father Hypertension Mother Hypertension Father Arthritis Mother Arthritis Father Cancer Maternal Grandfather Diabetes Father Stroke Mother Stroke Father Eye Problems Mother Gastro-intestinal disorder Mother Obesity Mother Obesity Father Review of patient's allergies indicates: Environmental [Dust] -Sneezing and runny nose Neomycin-Containing Injectable Products mac Statins Muscle pain Current Outpatient Prescriptions Reported Home Medications Medications Dose Route/Sig Max Daily Dose Days Date Category Dose Instructions Ambien (Zolpidem Tartrate) 5 Mg Tab 5 Mg PO HS PRN 08/13/16 Reported Triamcinolone Acetonide (Triamcinolone) 60 Appln/60 Ml Lotn 1 Appln EXT BID PRN 08/13/16 Reported Aleve (Naproxen) 220 Mg Tab 220 Mg PO DAILY PRN 08/13/16 Reported Caltrate 600+D (Calcium Carbonate-Cholecalcife) 1 Tab Tab 1 Tab PO BID 08/13/16 Reported Proair Respiclick (Albuterol Sulfate) 108 Mcg/Act Aer 2 Puffs INH Q4H PRN 08/13/16 Reported Prolensa (Bromfenac Sodium (Ophth)) 0.07 % Adeline 1 Drop OPL DAILY 08/13/16 Reported Prednisolone Acetate 75 Drops/5 Ml Susp 1 Drop OPL TID 08/13/16 Reported Mvi With Minerals (Multivitamins/Minerals) Tab 1 Tab PO DAILY 08/13/16 Reported Aciphex (Rabeprazole Sodium) 20 Mg Tab 20 Mg PO QAM 08/13/16 Reported Cozaar (Losartan Potassium) 100 Mg Tab 1 Tab PO DAILY 30 08/13/16 Reported Digox (Digoxin) 125 Mcg Tab 125 Mcg PO DAILY 08/13/16 Reported Diclofenac Sodium (Diclofenac Sodium (Topical)) 1 % Gel 1 Appln PO QID PRN 08/13/16 Reported Bumetanide 1 Mg Tab 1 Mg PO BID 08/13/16 Reported Take 1 mg by mouth in AM and 1 mg by mouth in afternoon. Gatifloxacin (Gatifloxacin (Ophth)) 0.5 % Adeline 1 Drop OP 08/13/16 Reported [Juice Plus] 2 Cap PO TIDM 06/16/16 Reported Lioresal (Baclofen) 10 Mg Tab 5 Mg PO BID PRN 06/16/16 Reported Norvasc (Amlodipine Besylate) 2.5 Mg Tab 2.5 Mg PO DAILY 03/25/16 Reported Cymbalta (Duloxetine HCl) 30 Mg Cap 1 Cap PO QPM 12/10/15 Reported Take 30 mg by mouth at bedtime with 40 mg for total of 70 mg. Oxygen Gas 2.5 Liters NA HS 10/17/15 Reported WITH CPAP Cymbalta (Duloxetine HCl) 20 Mg Cap 40 Mg PO HS 05/06/15 Reported Take 40 mg by mouth at bedtime with 30 mg cap for total of 70 mg. Levothyroxine Sodium 150 Mcg Tab 1 Tab PO QAM 05/06/15 Reported Chlorzoxazone 500 Mg Tab 250 Mg PO QID 03/26/15 Reported Tikosyn (Dofetilide) 250 Mcg Cap 250 Mcg PO BID 12/28/13 Reported Roxicodone Ir (Oxycodone HCl) 5 Mg Tab 5 Mg PO Q4H PRN 12/28/13 Reported Pradaxa (Dabigatran Etexilate Mesylate) 150 Mg Cap 150 Mg PO BID 01/22/12 Reported Lyrica (Pregabalin) 200 Mg Cap 200 Mg PO TID 10/16/11 Reported Lopressor (Metoprolol Tartrate) 100 Mg Tab 100 Mg PO BID 01/14/11 Reported OBJECTIVE/PHYSICAL EXAMINATION: Last 8 Hrs Date Time Temp Pulse Resp B/P Pulse Ox O2 Delivery O2 Flow Rate FiO2 08/14/16 12:00 Room Air 08/14/16 11:24 36.7 57 16 113/79 93 Room Air 08/14/16 09:16 95 Room Air 08/14/16 07:45 Room Air 08/14/16 07:32 36.7 60 16 93/48 89 Room Air General: no acute distress and stated age Eyes: conjunctiva are pink and non-injected, sclera clear Neck: normal jugular venous pulse, no hepatojugular reflux Chest: normal shape and normal respiratory effort Lungs: clear to auscultation and percussion Cardiac Exam: - regular heart sounds, no murmurs, rubs, or gallops Abdomen: abdomen soft, non-tender, no abnormal masses and no hepatosplenomegaly Musculoskeletal: no gait disturbance, no weakness Extremities: no edema and no cyanosis Neuro: grossly normal exam Psych: appropriate affect and insight. Data: Chest xray on admission: IMPRESSION: Left basilar linear density which favors subsegmental atelectasis or scarring. Otherwise, no acute process within the chest. EKG on admission Sinus rhythm with 1st degree A-V block Left anterior fascicular block Non-specific intra-ventricular conduction delay Abnormal ECG When compared with ECG of 25-MAR-2016 08:06, No significant change was found Stable Qt/QTc Repeat EKG 08/14/16 AM: Sinus bradycardia with 1st degree A-V block Left axis deviation Non-specific intra-ventricular conduction block Abnormal ECG When compared with ECG of 13-AUG-2016 18:45, No significant change was found Telemetry reviewed: NSR and Sinus bradycardia Labs: Last 24 Hours Test 08/13/16 19:36 08/13/16 19:37 08/14/16 02:05 08/14/16 07:22 White Blood Count 7.59 K/uL 6.32 K/uL Red Blood Count 4.81 M/uL 4.55 M/uL Hemoglobin 13.9 g/dL 13.4 g/dL Hematocrit 41.9 % 40.1 % Mean Corpuscular Volume 87.1 fL 88.1 fL Mean Corpuscular Hemoglobin 28.9 pg 29.5 pg Mean Corpuscular Hemoglobin Concent 33.2 g/dl 33.4 g/dl Platelet Count 194 K/uL 174 K/uL Mean Platelet Volume 10.1 fL 10.1 fL Neutrophils (%) (Auto) 63.8 % Lymphocytes (%) (Auto) 20.3 % Monocytes (%) (Auto) 11.7 % Eosinophils (%) (Auto) 3.3 % Basophils (%) (Auto) 0.5 % Neutrophils # (Auto) 4.84 K/uL Lymphocytes # (Auto) 1.54 K/uL Monocytes # (Auto) 0.89 K/uL Eosinophils # (Auto) 0.25 K/uL Basophils # (Auto) 0.04 K/uL RDW Standard Deviation 43.9 fL 44.6 fL RDW Coefficient of Variation 13.9 % 13.9 % Immature Granulocyte % (Auto) 0.4 % Immature Granulocyte # (Auto) 0.03 K/uL Prothrombin Time 10.8 SECONDS Prothromb Time International Ratio 1.0 Activated Partial Thromboplast Time 33.4 SECONDS Partial Thromboplastin Ratio 1.3 Sodium Level 141 mmol/L 142 mmol/L Potassium Level 4.1 mmol/L 4.1 mmol/L Chloride Level 103 mmol/L 103 mmol/L Carbon Dioxide Level 29 mmol/L 31 mmol/L Anion Gap 9.0 mmol/L 8.0 mmol/L Blood Urea Nitrogen 21 mg/dl 20 mg/dl Creatinine 1.10 mg/dl 1.00 mg/dl Est Creatinine Clear Calc Drug Dose 63.8 ml/min 70.0 ml/min Estimated GFR () 58.9 66.1 Estimated GFR (Non- 50.8 57.0 BUN/Creatinine Ratio 18.8 19.7 Random Glucose 125 mg/dl 115 mg/dl Calcium Level 9.6 mg/dl 9.4 mg/dl Bedside Troponin I 0.010 ng/ml Total Creatine Kinase 104 U/L 93 U/L Creatine Kinase MB 1.4 ng/ml 1.0 ng/ml Creatine Kinase MB Ratio 1.3 1.1 Troponin I < 0.015 ng/ml Magnesium Level 2.4 mg/dl Triglycerides Level 234 mg/dl Cholesterol Level 192 mg/dl HDL Cholesterol 46 mg/dl LDL Cholesterol, Calculated 99 mg/dl VLDL Cholesterol, Calculated 47 mg/dl Cholesterol/HDL Ratio 4.2 Hepatitis C Antibody Screen NEG Test 08/14/16 07:25 08/14/16 11:17 08/14/16 11:35 Bedside Glucose 117 mg/dl 114 mg/dl Troponin I < 0.015 ng/ml Assessment and Plan: 1. Atypical chest pain, occurring at rest. -no recurrence since admission -No ischemic EKG findings -Negative cardiac enzymes x2 -Echo ordered -Await repeat troponin -if echo and repeat cardiac enzymes are unremarkable, recommend outpatient 2D nuclear Lexiscan next week. Our office will call to arrange. 2. Paroxysmal atrial fibrillation, Chronic anticoagulation with Pradaxa. No missed dosages. -on Tikosyn -on metoprolol -no evidence of PAF since admission 3. Hypertension - controlled -continue home meds 4. Chronic diastolic HF - currently euvolemic - continue home diuretic therapy Case discussed with Dr. Garcia. Await above tests and possible discharge this afternoon. Patient may eat as well. (Chelly Grijalva PA-C) Cardiology attending: Pt seen and examined, agree with findings and assessment as per Chelly Dong. Ischemic work up is negative. No new wall motion abnormalities on echo. Ok to d/c to home. Will complete Lexiscan nuclear stress as outpatient. F/u with Dr. Lopez 1 week after stress. No medication changes. (Pankaj Garcia, D.O.)
[2016-08-14] MEDS ORDERED: DIGOXIN 0.125 MG TAB PO SCH (16:00)
--- NOTE | 2016-08-14 16:10 | ECHOCARDIOGRAM REPORT ---
*NOTICE TO RECEIVING REPUBLICAN AGENCY This information is strictly Confidential and protected under [place] law. [place] law prohibits you from making any further disclosure of this information unless further disclosure is expressly permitted by the written consent of the person to whom it pertains or is authorized by law. A general authorization for the release of medical or other information is not sufficient for this purpose. Hospital accepts no responsibility if the information is made available to any other person, INCLUDING THE PATIENT. Interpretation Summary * Name: DAVEY GARCIA Study Date: 08/14/2016 02:30 PM BP: 129/74 mmHg * Patient Location: [facility]\S\[id number] HR: 57 * : 1945 (M/d/yyyy) Gender: Female Height: 66 in * Age: 70 yrs Ethnicity: [place] Weight: 270 lb * Ordering Physician: Rei Johnston * Referring Physician: REI JOHNSTON * Performed By: Whit Sotelo RDCS * * Reason For Study: CHEST PAIN * BSA: 2.3 m2 * History: CHEST PAIN * -- Conclusions -- * No change compared to previous study of 03/26/15. * Normal LV chamber size with mild concentric LVH, sigmoid appearing septum. * Normal LV systolic function, EF 65-70%. * No segmental left ventricular wall motion abnormalities are noted. * Grade I diastolic dysfunction. * Aortic valve sclerosis mild, without significant aortic valvular stenosis. Mild aortic regurgitation. * Mild left atrial enlargement. Procedure Details * A complete two-dimensional transthoracic echocardiogram was performed (2D, M-mode, Doppler and color flow Doppler). Left Ventricle * The left ventricle is normal in size. * There is mild concentric left ventricular hypertrophy. * The basal septum is thickened and angulated consistent with sigmoid septum. * Ejection Fraction = 65-70%. * Left ventricular systolic function is normal. * No segmental left ventricular wall motion abnormalities are noted. * The left ventricular wall motion is normal. Right Ventricle * The right ventricular cavity size is normal (basal dimension <4.2 cm in right ventricular apical 4-chamber view). * The right ventricular systolic function is normal as assessed by tricuspid annular plane systolic excursion (TAPSE) (normal >1.5 cm). Atria * The left atrium is mildly dilated. * Right atrial size is normal. * No ASD detected; PFO is not assessed. Mitral Valve * The mitral valve is normal in structure and function. Tricuspid Valve * The tricuspid valve is normal in structure and function. Aortic Valve * The aortic valve is trileaflet. * Aortic valve sclerosis mild, without significant aortic valvular stenosis. * Mild aortic regurgitation. Pulmonic Valve * The pulmonary valve is not well seen, but the Doppler examination is normal without significant regurgitation or stenosis. Great Vessels * The aortic root is normal size. Pericardium/Pleural * There is no pericardial effusion. Left Ventricular Diastolic Function * Grade I diastolic dysfunction, (abnormal relaxation pattern). MMode 2D Measurements and Calculations IVSd 1.6 cm IVSs 2.0 cm LVIDd 4.9 cm LVIDs 2.8 cm LVPWd 1.1 cm LVPWs 1.8 cm IVS/LVPW 1.5 FS 42.5 % EDV(Teich) 112.3 ml ESV(Teich) 29.8 ml EF(Teich) 73.4 % EDV(cubed) 117.0 ml ESV(cubed) 22.2 ml EF(cubed) 81.0 % % IVS thick 22.2 % % LVPW thick 73.6 % LV mass(C)d 263.0 grams LV mass(C)dI 115.8 grams/m\S\2 LV mass(C)s 223.5 grams LV mass(C)sI 98.4 grams/m\S\2 SV(Teich) 82.5 ml SI(Teich) 36.3 ml/m\S\2 SV(cubed) 94.8 ml SI(cubed) 41.7 ml/m\S\2 Ao root diam 3.3 cm Ao root area 8.7 cm\S\2 LA dimension 4.2 cm LA/Ao 1.3 LVAd ap4 34.8 cm\S\2 LVLd ap4 8.7 cm EDV(MOD-sp4) 113.1 ml EDV(sp4-el) 117.8 ml LVAs ap4 18.9 cm\S\2 LVLs ap4 7.1 cm ESV(MOD-sp4) 42.7 ml ESV(sp4-el) 42.8 ml EF(MOD-sp4) 62.3 % EF(sp4-el) 63.7 % LVAd ap2 34.8 cm\S\2 LVLd ap2 9.2 cm EDV(MOD-sp2) 106.0 ml EDV(sp2-el) 112.1 ml LVAs ap2 17.9 cm\S\2 LVLs ap2 7.7 cm ESV(MOD-sp2) 34.7 ml ESV(sp2-el) 35.6 ml EF(MOD-sp2) 67.3 % EF(sp2-el) 68.2 % LVLd %diff 4.8 % EDV(MOD-bp) 113.0 ml LVLs %diff 7.2 % ESV(MOD-bp) 39.2 ml EF(MOD-bp) 65.3 % SV(MOD-sp4) 70.4 ml SI(MOD-sp4) 31.0 ml/m\S\2 SV(MOD-sp2) 71.3 ml SI(MOD-sp2) 31.4 ml/m\S\2 SV(MOD-bp) 73.8 ml SI(MOD-bp) 32.5 ml/m\S\2 SV(sp4-el) 75.0 ml SI(sp4-el) 33.0 ml/m\S\2 SV(sp2-el) 76.5 ml SI(sp2-el) 33.7 ml/m\S\2 Doppler Measurements and Calculations MV E max cata 63.1 cm/sec MV A max cata 82.0 cm/sec MV E/A 0.77 MV dec time 0.24 sec Ao V2 max 200.6 cm/sec Ao max PG 16.1 mmHg Ao max PG (full) 5.4 mmHg LV V1 max PG 10.7 mmHg LV V1 max 163.7 cm/sec TR max cata 271.7 cm/sec
--- NOTE | 2016-08-14 16:36 | Progress Note ---
Internal Med Progress Note Date of Service: Aug 14, 2016. Provider Documentation: SUBJECTIVE: Patient is seen and examined at bedside. Currently feels well. chest pain, jaw stiffness resolved. Denies any chest pain, palpitations, SOB, dizziness, nausea. OBJECTIVE: Vital Signs-as noted below Exam: Physical Exam: General Appearance:Obese, no apparent distress Head: normocephalic, Atraumatic Eyes: normal inspection, EOMI, PERRLA Neck: supple, no JVD, Trachea midline Respiratory/Chest: Normal breath sounds, CTA, No accessory muscle use Cardiovascular: S1, S2, No murmur Abdomen/GI:Soft, Non tender, Bowel sounds present Extremities/Musculoskelatal:normal inspection, no edema Neurologic/Psych:AAOX3, grossly no focal neurological deficits Skin: normal color, warm Lab data as noted below. ASSESSMENT & PLAN: ATYPICAL CHEST PAIN Resolved CXR- L base linear atelectasis vs. scarring EKG, Troponin: No signs of ischemia ECHO: no wall motion abnormalities Appreciate cardiology help Needs follow up with Cardiology with outpatient 2D nuclear Lexiscan next week H/O PAROXYSMAL ATRIAL FIBRILLATION Continue Tikosyn, digoxin, metoprolol Continue anticoagulation with Pradaxa HYPERTENSION Controlled Continue amlodipine, losartan, metoprolol CHRONIC DIASTOLIC CHF Euvolemic Continue current meds DIABETES II Diet controlled; last A1c 6.6 in 07/2016 Diabetic diet Monitor BSG AC HS TIERRA / NOCTURNAL HYPOXEMIA Continue CPAP with nocturnal O2 ASTHMA Not in exacerbation Continue PRN inhaler HYPOTHYROIDISM Continue levothyroxine GERD Continue PPI DVT PROPHYLAXIS On Pradaxa CODE STATUS Full code Vital Signs: Date Time Temp Pulse Resp B/P Pulse Ox O2 Delivery O2 Flow Rate FiO2 08/14/16 16:15 62 08/14/16 14:45 36.8 57 20 129/74 91 08/14/16 12:00 Room Air 08/14/16 11:24 36.7 57 16 113/79 93 Room Air 08/14/16 09:16 95 Room Air 08/14/16 07:45 Room Air 08/14/16 07:32 36.7 60 16 93/48 89 Room Air 08/14/16 04:55 36.7 54 18 106/50 97 BiPAP 2.5 08/14/16 04:30 Room Air 08/14/16 00:00 Room Air 08/13/16 22:20 37.2 67 18 129/79 93 Room Air 08/13/16 22:01 67 17 133/81 94 08/13/16 20:03 56 18 143/68 94 Room Air 08/13/16 19:38 94 Room Air 08/13/16 19:02 58 08/13/16 18:40 37.1 58 20 153/82 94 Room Air 08/13/16 18:40 94 Room Air Lab Results: Results Past 24 Hours Test 08/13/16 19:36 08/13/16 19:37 08/14/16 02:05 08/14/16 07:22 Range/Units White Blood Count 7.59 6.32 4.8-10.8 K/uL Red Blood Count 4.81 4.55 4.2-5.4 M/uL Hemoglobin 13.9 13.4 12.0-16.0 g/dL Hematocrit 41.9 40.1 37-47 % Mean Corpuscular Volume 87.1 88.1 80-100 fL Mean Corpuscular Hemoglobin 28.9 29.5 25-34 pg Mean Corpuscular Hemoglobin Concent 33.2 33.4 32-36 g/dl Platelet Count 194 174 130-400 K/uL Mean Platelet Volume 10.1 10.1 7.4-10.4 fL Neutrophils (%) (Auto) 63.8 % Lymphocytes (%) (Auto) 20.3 % Monocytes (%) (Auto) 11.7 % Eosinophils (%) (Auto) 3.3 % Basophils (%) (Auto) 0.5 % Neutrophils # (Auto) 4.84 1.4-6.5 K/uL Lymphocytes # (Auto) 1.54 1.2-3.4 K/uL Monocytes # (Auto) 0.89 0.11-0.59 K/uL Eosinophils # (Auto) 0.25 0-0.5 K/uL Basophils # (Auto) 0.04 0-0.2 K/uL RDW Standard Deviation 43.9 44.6 36.4-46.3 fL RDW Coefficient of Variation 13.9 13.9 11.5-14.5 % Immature Granulocyte % (Auto) 0.4 % Immature Granulocyte # (Auto) 0.03 0.00-0.02 K/uL Prothrombin Time 10.8 9.0-12.0 SECONDS Prothromb Time International Ratio 1.0 0.9-1.1 Activated Partial Thromboplast Time 33.4 21.0-31.0 SECONDS Partial Thromboplastin Ratio 1.3 Sodium Level 141 142 136-145 mmol/L Potassium Level 4.1 4.1 3.5-5.1 mmol/L Chloride Level 103 103 98-107 mmol/L Carbon Dioxide Level 29 31 21-32 mmol/L Anion Gap 9.0 8.0 3-11 mmol/L Blood Urea Nitrogen 21 20 7-18 mg/dl Creatinine 1.10 1.00 0.60-1.20 mg/dl Est Creatinine Clear Calc Drug Dose 63.8 70.0 ml/min Estimated GFR () 58.9 66.1 Estimated GFR (Non- 50.8 57.0 BUN/Creatinine Ratio 18.8 19.7 10-20 Random Glucose 125 115 70-99 mg/dl Calcium Level 9.6 9.4 8.5-10.1 mg/dl Bedside Troponin I 0.010 0-0.045 ng/ml Total Creatine Kinase 104 93 26-192 U/L Creatine Kinase MB 1.4 1.0 0.5-3.6 ng/ml Creatine Kinase MB Ratio 1.3 1.1 0-3.0 Troponin I < 0.015 0-0.045 ng/ml Magnesium Level 2.4 1.8-2.4 mg/dl Triglycerides Level 234 0-150 mg/dl Cholesterol Level 192 0-200 mg/dl HDL Cholesterol 46 mg/dl LDL Cholesterol, Calculated 99 mg/dl VLDL Cholesterol, Calculated 47 mg/dl Cholesterol/HDL Ratio 4.2 Hepatitis C Antibody Screen NEG NEG Test 08/14/16 07:25 08/14/16 11:17 08/14/16 11:35 08/14/16 16:15 Range/Units Bedside Glucose 117 114 115 70-90 mg/dl Troponin I < 0.015 0-0.045 ng/ml
--- NOTE | 2016-08-14 16:42 | Discharge Instructions ---
Discharge Instructions Admission Reason for Admission: Chest Pain Discharge Discharge Diagnosis / Problem: Atypical chest pain Discharge Goals Goal(s): Decrease discomfort, Improve function Activity Recommendations Activity Limitations: resume your previous activity Exercise/Sports Limitations: as tolerated . Instructions / Follow-Up Instructions / Follow-Up Follow up with on Aug 21 at 12:50 pm Follow up your machine operator replanter next week (Please call for appointment) Obtain Nuclear stress test as advised and follow up with your machine operator replanter. Seek immediate medical attention if your symptoms reoccur. Current Hospital Diet Patient's current hospital diet: Diabetes Type 2 Diet, AHA Diet (Heart Healthy) Discharge Diet Recommended Diet: AHA Diet (Heart Healthy), Diabetes Type 2 Diet Pending Studies Studies pending at discharge: no Laboratory Results Lipid Panel Test 08/14/16 07:22 Range/Units Triglycerides Level 234 H 0-150 mg/dl Cholesterol Level 192 0-200 mg/dl HDL Cholesterol 46 mg/dl Cholesterol/HDL Ratio 4.2 LDL Cholesterol, Calculated 99 mg/dl Medical Emergencies . Who to Call and When: Medical Emergencies: If at any time you feel your situation is an emergency, please call 911 immediately. . Non-Emergent Contact Non-Emergency issues call your: Primary Care Provider, Hospice Nurse Call Non-Emergent contact if: your pain is worsening, your pain is unusual for you, you have any medication questions . . "Provider Documentation" section prepared by Neo Terry. VTE Core Measure Inpt VTE Proph given/why not?: Other Anticoagulation
--- NOTE | 2016-08-14 16:46 | Discharge Summary ---
Discharge Summary Admission Date: Aug 13, 2016 at 21:09 Discharge Date: Aug 14, 2016 Discharge Disposition: Home Principal Diagnosis: Atypical chest pain Procedures: CXR: IMPRESSION: Left basilar linear density which favors subsegmental atelectasis or scarring. Otherwise, no acute process within the chest. ECHO: No change compared to previous study of 03/26/15. * Normal LV chamber size with mild concentric LVH, sigmoid appearing septum. * Normal LV systolic function, EF 65-70%. * No segmental left ventricular wall motion abnormalities are noted. * Grade I diastolic dysfunction. * Aortic valve sclerosis mild, without significant aortic valvular stenosis. Mild aortic regurgitation. * Mild left atrial enlargement. Consultations: Cardiology Pending Studies/Follow-Up: Follow up with on Aug 21 at 12:50 pm Follow up your grease machine worker next week (Please call for appointment) Obtain Nuclear stress test as advised and follow up with your grease machine worker. Seek immediate medical attention if your symptoms reoccur. Medication Reconciliation Continued Medications: Albuterol Sulfate (Proair Respiclick) 108 Mcg/Act Aer 2 PUFFS INH Q4H PRN for SOB/Wheezing Amlodipine (Norvasc) 2.5 Mg Tab 2.5 MG PO DAILY Baclofen (Lioresal) 10 Mg Tab 5 MG PO BID PRN for Muscle Spasms Bromfenac Sodium (Ophth) (Prolensa) 0.07 % Adeline 1 DROP OPL DAILY, #3 Bumetanide (Bumetanide) 1 Mg Tab 1 MG PO BID, #60 Take 1 mg by mouth in AM and 1 mg by mouth in afternoon. Calcium Carbonate-Cholecalcife (Caltrate 600+D) 1 Tab Tab 1 TAB PO BID Chlorzoxazone (Chlorzoxazone) 500 Mg Tab 250 MG PO QID Dabigatran Etexilate Mesylate (Pradaxa) 150 Mg Cap 150 MG PO BID, CAP Diclofenac Sodium (Topical) (Diclofenac Sodium) 1 % Gel 1 APPLN PO QID PRN for Pain, #100 Digoxin (Digox) 125 Mcg Tab 125 MCG PO DAILY, #30 Dofetilide (Tikosyn) 250 Mcg Cap 250 MCG PO BID Duloxetine HCl (Cymbalta) 20 Mg Cap 40 MG PO HS Take 40 mg by mouth at bedtime with 30 mg cap for total of 70 mg. Duloxetine HCl (Cymbalta) 30 Mg Cap 1 CAP PO QPM Take 30 mg by mouth at bedtime with 40 mg for total of 70 mg. Gatifloxacin (Ophth) (Gatifloxacin) 0.5 % Adeline 1 DROP OP, #2 Levothyroxine Sodium (Levothyroxine Sodium) 150 Mcg Tab 1 TAB PO QAM Losartan Potassium (Cozaar) 100 Mg Tab 1 TAB PO DAILY for 30 Days, #30 TAB 5 Refills Metoprolol Tartrate (Lopressor) (Lopressor) 100 Mg Tab 100 MG PO BID Multivitamins/Minerals (Mvi With Minerals) Tab 1 TAB PO DAILY, TAB Naproxen (Aleve) 220 Mg Tab 220 MG PO DAILY PRN for severe pain, TAB Oxycodone Ir (Roxicodone Ir) 5 Mg Tab 5 MG PO Q4H PRN for Pain Oxygen (Oxygen) Gas 2.5 LITERS NA HS WITH CPAP Prednisolone Acetate (Prednisolone Acetate) 75 Drops/5 Ml Susp 1 DROP OPL TID, #10 Pregabalin (Lyrica) 200 Mg Cap 200 MG PO TID Rabeprazole Sodium (Aciphex) 20 Mg Tab 20 MG PO QAM, TAB Triamcinolone (Triamcinolone Acetonide) 60 Appln/60 Ml Lotn 1 APPLN EXT BID PRN for Itching Zolpidem Tartrate (Ambien) 5 Mg Tab 5 MG PO HS PRN for Insomnia, TAB [Juice Plus] () 2 CAP PO TIDM Admission Information HPI (per Admitting provider): This is a pleasant 70 y/o female with PMH of Afib on chronic anticoagulation with Pradaxa, diastolic CHF, DM 2, morbid obesity, TIERRA on CPAP and nocturnal O2 , CKD stage III, who presents to the ED for chest pain. Pt sees Dr. Nieves for primary care and Dr. Lopez for cardiology. Pt had cataract surgery 2 days ago which was uneventful and she was feeling normally. Then this afternoon while sitting watching a movie she suddenly developed substernal chest tightness with radiation to her jaw and tongue. The pain was constant for approximately 25 minutes then waxed and waned for additional 20 minutes before resolving completely. She was not exerting herself during the episode. She did not take any medication. In the ER she remains chest pain free. She denies prior similar CP. Pt has associated mild frontal pressure YOUNG which persists. She states she is only MARTIN walking up 1 set of stairs during episodes of atrial fibrillation. She usually can tell she is AF due to fatigue, but denies feeling this way recently. She reports chronic burning pain of bilateral feet and spasms in bilateral calves. She takes oxycodone for her LE pains. Denies associated diaphoresis, dizziness, N/V, reflux, palpitations, cough, wheezing, SOB, edema, wt gain, rash on the chest, anxiety, abnormal bleeding. No recent heavy lifting. Denies hx of CAD. Pt denies having a stress test in past several years. Physical Exam (per Admitting): General Appearance: no apparent distress, + obese, + pertinent finding ( alert pleasant 70 y/o female, no distress) Head: normocephalic, atraumatic Eyes: normal inspection, PERRL, EOMI ENT: hearing grossly normal, pharynx normal Neck: supple, no JVD, trachea midline Respiratory/Chest: chest non-tender, lungs clear, normal breath sounds, no respiratory distress, no accessory muscle use Cardiovascular: regular rate, rhythm, normal peripheral pulses, + systolic murmur (grade II) Abdomen/GI: normal bowel sounds, non tender, soft Extremities/Musculoskelatal: normal inspection, no calf tenderness, no pedal edema Neurologic/Psych: alert, normal mood/affect, oriented x 3, + pertinent finding (grossly nonfocal) Skin: normal color, warm/dry, no rash (no rash on the chest) Hospital Course ATYPICAL CHEST PAIN Resolved CXR- L base linear atelectasis vs. scarring EKG, Troponin: No signs of ischemia ECHO: no wall motion abnormalities Appreciate cardiology help Needs follow up with Cardiology with outpatient 2D nuclear Lexiscan next week H/O PAROXYSMAL ATRIAL FIBRILLATION Continue Tikosyn, digoxin, metoprolol Continue anticoagulation with Pradaxa HYPERTENSION Controlled Continue amlodipine, losartan, metoprolol CHRONIC DIASTOLIC CHF Euvolemic Continue current meds DIABETES II Diet controlled; last A1c 6.6 in 07/2016 Diabetic diet Monitor BSG AC HS TIERRA / NOCTURNAL HYPOXEMIA Continue CPAP with nocturnal O2 ASTHMA Not in exacerbation Continue PRN inhaler HYPOTHYROIDISM Continue levothyroxine GERD Continue PPI DVT PROPHYLAXIS On Pradaxa CODE STATUS Full code Total time spent on discharge = This includes examination of the patient, discharge planning, medication reconciliation, and communication with other providers. Discharge Instructions Discharge Instructions Admission Reason for Admission: Chest Pain Discharge Discharge Diagnosis / Problem: Atypical chest pain Discharge Goals Goal(s): Decrease discomfort, Improve function Activity Recommendations Activity Limitations: resume your previous activity Exercise/Sports Limitations: as tolerated . Instructions / Follow-Up Instructions / Follow-Up Follow up with on Aug 21 at 12:50 pm Follow up your grease machine worker next week (Please call for appointment) Obtain Nuclear stress test as advised and follow up with your grease machine worker. Seek immediate medical attention if your symptoms reoccur. Current Hospital Diet Patient's current hospital diet: Diabetes Type 2 Diet, AHA Diet (Heart Healthy) Discharge Diet Recommended Diet: AHA Diet (Heart Healthy), Diabetes Type 2 Diet Pending Studies Studies pending at discharge: no Laboratory Results Lipid Panel Test 08/14/16 07:22 Range/Units Triglycerides Level 234 H 0-150 mg/dl Cholesterol Level 192 0-200 mg/dl HDL Cholesterol 46 mg/dl Cholesterol/HDL Ratio 4.2 LDL Cholesterol, Calculated 99 mg/dl Medical Emergencies . Who to Call and When: Medical Emergencies: If at any time you feel your situation is an emergency, please call 911 immediately. . Non-Emergent Contact Non-Emergency issues call your: Primary Care Provider, Supervisor Policy Change Clerks Call Non-Emergent contact if: your pain is worsening, your pain is unusual for you, you have any medication questions . . "Provider Documentation" section prepared by Neo Terry. VTE Core Measure Inpt VTE Proph given/why not?: Other Anticoagulation
[2016-08-14] MEDS ORDERED: DULOXETINE (CYMBALTA) 30 MG CAP PO SCH (21:00)
[2016-08-14] MEDS ORDERED: DULOXETINE HCL 20 MG CAP PO SCH (21:00)
== END 2016-08-14 17:30 | disposition home or self-care (01) ==
LOC: ENRESERVDT → ENRESERVTM → EDBD 18:39 → C.EDB 18:40 → C.MED 21:09
PROVIDERS: ADMIT Internal Medicine; ATTEND Internal Medicine
DX: R07.89 Other chest pain (principal); E03.9 Hypothyroidism, unspecified; E11.9 Type 2 diabetes mellitus without complications; E66.9 Obesity, unspecified; G47.33 Obstructive sleep apnea (adult) (pediatric); G62.9 Polyneuropathy, unspecified; G89.29 Other chronic pain; I12.9 Hypertensive chronic kidney disease with stage 1 through stage 4 chronic kidney disease, or unspecified chronic kidney disease; I35.1 Nonrheumatic aortic (valve) insufficiency; I44.0 Atrioventricular block, first degree; I48.0 Paroxysmal atrial fibrillation; I48.2 Chronic atrial fibrillation; I50.32 Chronic diastolic (congestive) heart failure; J45.909 Unspecified asthma, uncomplicated; K21.9 Gastro-esophageal reflux disease without esophagitis; K43.2 Incisional hernia without obstruction or gangrene; K66.0 Peritoneal adhesions (postprocedural) (postinfection); M54.5 Low back pain; N18.3 Chronic kidney disease, stage 3 (moderate); E05.00 Thyrotoxicosis with diffuse goiter without thyrotoxic crisis or storm; M45.9 Ankylosing spondylitis of unspecified sites in spine; G63 Polyneuropathy in diseases classified elsewhere; M25.50 Pain in unspecified joint; M51.9 Unspecified thoracic, thoracolumbar and lumbosacral intervertebral disc disorder; E03.8 Other specified hypothyroidism; M25.569 Pain in unspecified knee; K43.9 Ventral hernia without obstruction or gangrene; M54.14 Radiculopathy, thoracic region; M54.17 Radiculopathy, lumbosacral region; E66.01 Morbid (severe) obesity due to excess calories; I10 Essential (primary) hypertension; I48.91 Unspecified atrial fibrillation; Z79.01 Long term (current) use of anticoagulants; J30.9 Allergic rhinitis, unspecified; M19.90 Unspecified osteoarthritis, unspecified site; R09.02 Hypoxemia

== ENCOUNTER → 2016-09-01 | Day surgery (SDC) | payer BC ==
[2016-08-20 11:09] VITALS: Ht 167.6 cm; Wt 121.4 kg
[~2016-09-01] VITALS: Ht 167.6 cm; Wt 121.4 kg
[~2016-09-01] MED LIST changes: +500ML BSS 0.3ML EPI 1:1000PF IRRIG ONE; -ACET1TAB84 PO; +ACETAMINOPHEN 325 MG TAB PO PRN; -ACP20 PO; +ALBU18002 INH; -ALBU1AER9 INH; +AMVISC PLAIN 0.8ML SYRINGE INT OCU ONE; +AMVISC PLUS 0.8ML SYRINGE INT OCU ONE; +ATROPINE SULFATE 0.1 MG/ML 5ML SYR IV PRN; +BSS FLUSH ONE; +CALC-354 PO; -CLTP PO; -CNT PO; -CZR50 PO; -DICL1GEL28 TOP; +DICL1GEL34 PO; +DIGO0.1219 PO; -DIGO0.122 PO; +EpHEDrine SULFATE INJ 50 MG/ML AMP IV PRN; +EpINEphrine INJ 1MG/ML AMP 1 MG/ML AMP ONE; +FENTANYL CITRATE INJ 50 MCG/1 ML 2 ML VIAL IV PRN; +FLUMAZENIL 0.1 MG/1 ML 10 ML VIAL IV PRN; +HYDROmorphone INJ 2 MG/ML SYR/VIAL IV PRN; +LABETALOL HCL IV 5 MG/ML 20ML IV PRN; +LACTATED RINGER'S 1000ML 500 ML IV SCH; +LIDOCAINE 3.5% OPH GEL PER APPLICATION CHARGE ONE; +LIDOCAINE HCL 1% MPF 2 ML VIAL ONE; +LOSA1TAB38 PO; +MEPERIDINE HCL 25 MG/ML CARP IV PRN; +MIDAZOLAM HCL 1 MG/ML 2ML VIAL ONE; +MULTTAB PO; +NALOXONE HCL 0.4 MG/1 ML VIAL/CARP IV PRN; +NAPR1TAB9 PO; +OCUCOAT 1 ML SOLN IO ONE; +ONDANSETRON INJ 2 MG/ML 2 ML VIAL IV PRN; +PHENYLEPHRINE 100MCG/ML 5ML SYR IV PRN; +POVIDONE-IODINE OP SOLN 30 ML BTL ONE; +PROPARACAINE 0.5% OP SOLN PER DROP CHARGE OPR SCH; -PSEU60TA80 PO; +RABE20TA5 PO; +TOBRAMYCIN/DEXAMETHASONE OPH OINT PER APPLN CHARGE ONE; +TRML160 EXT; +ZOLP5TAB PO
[2016-09-01] MEDS: PHENYLEPHRINE HCL 2.5% OP SOLN PER DROP CHARGE OPR SCH ×2 (07:14→07:19)
[2016-09-01] MEDS: TROPICAMIDE 1% OP SOLN PER DROP CHARGE OPR SCH ×2 (07:15→07:20)
[2016-09-01] MEDS: CYCLOPENTOLATE HCL 1% OP SOLN PER DROP CHARGE OPR SCH ×2 (07:16→07:21)
[2016-09-01] MEDS: KETOROLAC 0.5% OP SOLN PER DROP CHARGE OPR SCH ×2 (07:17→07:22)
[2016-09-01] MEDS: GATIFLOXACIN OP SOLN PER DROP CHARGE OPR SCH ×2 (07:18→07:28)
--- NOTE | 2016-09-01 07:28 | History & Physical Bridge - SC ---
H&P Re-Evaluation Bridge Note: I have examined the patient, reviewed the History & Physical and in the interval since the performance of the History & Physical I have noted the following changes of clinical significance: Diagnosis: Right Cataract Procedure: Right Cataract Removal with Lens Implant No changes noted
--- NOTE | 2016-09-01 08:12 | Discharge Instructions-SurgCtr ---
Discharge Instructions Visit Reason for Visit: Cataract Right Eye Discharge Discharge Diagnosis / Problem: cataract Discharge Goals Goal(s): Improve function Activity Recommendations Activity Limitations: per Instructions/Follow-up section Anesthesia . Post Anesthesia Instructions: If you have had General Anesthesia or IV Sedation: * Do not drive today. * Resume driving when surgeon permits. * Do not make important decisions or sign legal documents today. * Call surgeon for: 1. Temperature elevations greater than 101 degrees F. 2. Uncontrollable pain. 3. Excessive bleeding. 4. Persistent nausea and vomiting. 5. Medication intolerance (nausea, vomiting or rash). * For nausea and vomiting use only clear liquids such as: tea, soda, bouillon until nausea subsides, then gradually increase diet as tolerated. * If you have any concerns or questions, call your surgeon's office. If physician is unavailable and it is an emergency, call 911 or go to the nearest emergency room. . Instructions / Follow-Up Instructions / Follow-Up ACTIVITY RECOMMENDATIONS: * No strenuous lifting, jogging or running for 4 days * No swimming or yard work for 1 week. * Limited bending is permitted, such as putting on shoes. RETURN TO SCHOOL/WORK: No work until seen by physician in office. MEDICATIONS: Resume previous medications unless instructed otherwise by your surgeon. This includes eye drops for glaucoma. Zymaxid/Gatifloxacin ([place] cap) - one drop every 2 hours until bedtime Nevanac/Ilevro/Prolensa/Ketorolac (sin cap) - one drop every 4 hours until bedtime Prednisolone (white/pink cap, SHAKE WELL) - one drop every 2 hours until bedtime Starting tomorrow - all 3 drops every 4 hours until seen in the office Optive drops - as needed for discomfort SPECIAL CARE INSTRUCTIONS: * Wear eyeshield when sleeping, for four nights. * You may wear your own glasses or sunglasses while awake. * You may read or watch TV * You may shower and wash your face, but be gentle around the eye and pat dry. * Blurry vision and mild irritation are normal. * Call office if pain is more severe or vision becomes dark at . FOLLOW UP VISIT: Follow-up with Dr Cruz tomorrow. Diet Recommendations Home Diet: resume previous diet Pending Studies Studies pending at discharge: no Medical Emergencies . Who to Call and When: Medical Emergencies: If at any time you feel your situation is an emergency, please call 911 immediately. . Non-Emergent Contact Non-Emergency issues call your: [employer] . . "Provider Documentation" section prepared by Evelio Cruz.
[2016-09-01 08:14] VITALS: TEMP 36.1
--- NOTE | 2016-09-01 08:15 | [facility] Operative Report ---
Operative Report 1. PREOPERATIVE DIAGNOSIS: Cataract of the right eye. 2. POSTOPERATIVE DIAGNOSIS: Same. 3. PROCEDURE: Phacoemulsification with intraocular lens implantation of the right eye. SURGEON: Dr. Evelio Cruz. ANESTHESIA: Topical Lidocaine gel, 1% Non- Preserved intracameral Lidocaine, and monitored intravenous sedation. INDICATIONS FOR THE PROCEDURE: The patient is a 70 - year-old female with a history of cataract of the right eye causing significant visual impairment. The details of the proposed procedure were explained to the patient who asked appropriate questions and following discussion of all risks, benefits and alternatives agreed to have the procedure done. Patient had corneal astigmatism and therefore elected to have a toric lens placed. 4. OPERATION AND FINDINGS: DESCRIPTION OF PROCEDURE: After informed consent was obtained, the patient was placed in an upright position and the cornea was marked at 103 degrees using the Wallit corneal marking tool. The patient was brought to the Operating Room at the [facility]. The patient was placed in a supine position and then the right eye was prepped and draped in the usual sterile fashion for intraocular surgery. A drop of topical Lidocaine gel was placed in the operative eye. A wire lid speculum was then placed in the fornices. A corneal paracentesis was then created temporally. The Non-Preserved Lidocaine was then instilled into the anterior chamber. The anterior chamber was then pressurized with viscoelastic. A 2.0 mm clear corneal incision was then created temporally. A cystotome was inserted into the anterior chamber and used to create a tear in the anterior lens capsule. This capsular tear was then used to create a small flap and the flap was dragged in a counterclockwise direction in order to create a continuous curvilinear capsulorrhexis. Hydrodissection was accomplished with balanced salt solution. Phacoemulsification of the lens nucleus was then performed in a standard divide- and-conquer technique. The phaco time was 24 seconds with an average power of 15 %. The remaining cortical material was removed using irrigation aspiration. The capsular bag was then filled with viscoelastic. A Peter [id number] +24.0 diopters lens was then loaded into the injector and injected into the capsular bag. The lens was aligned with the previously made corneal cheng. The remaining viscoelastic was removed with the irrigation aspiration handpiece including viscoelastic below the lens. The final lens rotation was checked. The wound was hydrated and then checked and found to be watertight. The intraocular pressure was checked and found to be adequate. The wire lid speculum was removed and the patient's face was cleaned and dried. TobraDex ointment was placed in the inferior fornix. The patient was discharged to the Recovery Room having tolerated the procedure well. There were no complications. The patient will be seen tomorrow in the office for follow-up. I attest to the content of the Intraoperative Record and any orders documented therein. Any exceptions are noted below.
--- NOTE | 2016-09-01 08:28 | Anesthesia Progress Nt - [facility] ---
Anesthesia Post Op Note Date & Time Sep 01, 2016 at 08:28 Vital Signs Pain Intensity: 0 Vital Signs Past 12 Hours Date Time Temp Pulse Resp B/P Pulse Ox O2 Delivery O2 Flow Rate FiO2 09/01/16 08:14 36.1 53 16 123/72 98 Room Air 09/01/16 07:09 37.1 55 20 135/73 93 Room Air Notes Mental Status: alert / awake / arousable, participated in evaluation Pt Amnestic to Procedure: Yes Nausea / Vomiting: adequately controlled Pain: adequately controlled Airway Patency, RR, SpO2: stable & adequate BP & HR: stable & adequate Hydration State: stable & adequate Anesthetic Complications: no major complications apparent
[2016-09-01 08:40] VITALS: BP 119/65; PULSE 56; O2SAT 94
== END | disposition home or self-care (01) ==
LOC: X.SURG 06:47
PROVIDERS: ATTEND Ophthalmology
DX: H26.9 Unspecified cataract (principal); E11.22 Type 2 diabetes mellitus with diabetic chronic kidney disease; I12.9 Hypertensive chronic kidney disease with stage 1 through stage 4 chronic kidney disease, or unspecified chronic kidney disease; N18.3 Chronic kidney disease, stage 3 (moderate); Z79.01 Long term (current) use of anticoagulants; E05.00 Thyrotoxicosis with diffuse goiter without thyrotoxic crisis or storm; I48.91 Unspecified atrial fibrillation; R53.81 Other malaise; E66.01 Morbid (severe) obesity due to excess calories

== ENCOUNTER → 2017-02-03 | Outpatient (CLI) | payer BC ==
[~2017-02-03] MED LIST changes: -500ML BSS 0.3ML EPI 1:1000PF IRRIG ONE; -ACETAMINOPHEN 325 MG TAB PO PRN; -AMVISC PLAIN 0.8ML SYRINGE INT OCU ONE; -AMVISC PLUS 0.8ML SYRINGE INT OCU ONE; -ATROPINE SULFATE 0.1 MG/ML 5ML SYR IV PRN; -BSS FLUSH ONE; -EpHEDrine SULFATE INJ 50 MG/ML AMP IV PRN; -EpINEphrine INJ 1MG/ML AMP 1 MG/ML AMP ONE; -FENTANYL CITRATE INJ 50 MCG/1 ML 2 ML VIAL IV PRN; -FLUMAZENIL 0.1 MG/1 ML 10 ML VIAL IV PRN; -HYDROmorphone INJ 2 MG/ML SYR/VIAL IV PRN; -LABETALOL HCL IV 5 MG/ML 20ML IV PRN; -LACTATED RINGER'S 1000ML 500 ML IV SCH; -LIDOCAINE 3.5% OPH GEL PER APPLICATION CHARGE ONE; -LIDOCAINE HCL 1% MPF 2 ML VIAL ONE; -MEPERIDINE HCL 25 MG/ML CARP IV PRN; -MIDAZOLAM HCL 1 MG/ML 2ML VIAL ONE; -NALOXONE HCL 0.4 MG/1 ML VIAL/CARP IV PRN; -OCUCOAT 1 ML SOLN IO ONE; -ONDANSETRON INJ 2 MG/ML 2 ML VIAL IV PRN; -PHENYLEPHRINE 100MCG/ML 5ML SYR IV PRN; -POVIDONE-IODINE OP SOLN 30 ML BTL ONE; -PROPARACAINE 0.5% OP SOLN PER DROP CHARGE OPR SCH; -TOBRAMYCIN/DEXAMETHASONE OPH OINT PER APPLN CHARGE ONE
[2017-02-03 09:43] LABS: BLOOD UREA NITROGEN 27 mg/dl (7-18); BUN/CREATININE RATIO 24.1 (10-20); CALCIUM 9.8 mg/dl (8.5-10.1); CARBON DIOXIDE 32 mmol/L (21-32); CHLORIDE 103 mmol/L (98-107); GLUCOSE 129 mg/dl (70-99); POTASSIUM 4.3 mmol/L (3.5-5.1); SODIUM 139 mmol/L (136-145)
[2017-02-03 09:55] LABS: THYROXINE (T4) 3.2 mcg/dl (4.5-10.9)
[2017-02-03 10:00] LABS: ESTIMATED AVERAGE GLUCOSE 154 mg/dl; HA1C FLAG Normal (Normal)
[2017-02-03 10:05] LABS: INSULIN FASTING 156.5 mU/L (3-25)
[2017-02-03 10:12] LABS: T3 TOTAL 0.88 ng/ml (0.60-1.81)
== END | disposition home or self-care (01) ==
LOC: C.LAB 08:04
PROVIDERS: ATTEND Family Medicine
DX: R73.03 Prediabetes (principal); R53.83 Other fatigue; E55.9 Vitamin D deficiency, unspecified; E03.9 Hypothyroidism, unspecified; E83.42 Hypomagnesemia

== ENCOUNTER → 2017-04-19 | Outpatient (CLI) | payer BC ==
[2017-04-19 18:23] LABS: THYROID STIMULATING HORMONE 0.191 uIu/ml (0.300-4.500)
== END | disposition home or self-care (01) ==
LOC: C.LAB1850 17:00
PROVIDERS: ATTEND Internal Medicine Endocrinology, Diabetes & Metabolism
DX: E03.9 Hypothyroidism, unspecified (principal); M79.1 Myalgia

== ENCOUNTER → 2017-04-29 | Outpatient (CLI) | payer BC ==
--- NOTE | 2017-04-29 13:34 | DIAGNOSTIC IMAGING REPORT ---
Right POPLITEAL FOSSA ULTRASOUND CLINICAL HISTORY: SUBCUTANEOUS MASS COMPARISON STUDY: No previous studies for comparison. FINDINGS: No masses were visualized in the area of reported palpable abnormality. The popliteal artery and vein appear patent. IMPRESSION: Ultrasound fails to visualize the reported palpable mass. Clinical follow-up is advocated Electronically signed by: Donovan Black M.D. 04/29/2017 1:32 PM Dictated Date/Time: 04/29/2017 1:31 PM
== END | disposition home or self-care (01) ==
LOC: C.ULTR 13:02
PROVIDERS: ATTEND Neuromusculoskeletal Medicine & OMM
DX: M25.561 Pain in right knee (principal); R22.9 Localized swelling, mass and lump, unspecified

== ENCOUNTER → 2017-06-29 | Outpatient (CLI) | payer BC ==
[~2017-06-29] MED LIST changes: -ZOLP5TAB PO
--- NOTE | 2017-06-29 10:56 | DIAGNOSTIC IMAGING REPORT ---
RIGHT KNEE 2 VIEWS HISTORY: M25.561 Right knee pain, unspecified [id number] Subcutaneou COMPARISON: None. FINDINGS: There is no fracture or dislocation. No significant knee effusion. There is a 3 cm suprapatellar calcification. This could represent an intra-articular loose body. Large tricompartmental marginal osteophytes. Moderate cartilage space narrowing within the medial and patellofemoral compartments. No radiopaque foreign bodies. IMPRESSION: 1. No fracture or dislocation within the right knee. 2. Moderate osteoarthritis. 3. A 3 cm suprapatellar calcification which may represent an intra-articular loose body. Electronically signed by: Librado Mena M.D. 06/29/2017 10:55 AM Dictated Date/Time: 06/29/2017 10:53 AM
[2017-06-29 12:07] LABS: BASO % 0.8 %; BASO ABS # 0.05 K/uL (0-0.2); COMPLETE YES; EOS % 4.5 %; HEMATOCRIT 41.9 % (37-47); IG% 0.5 %; LYMPH % 24.7 %; LYMPH ABS # 1.54 K/uL (1.2-3.4); MEAN CELL VOLUME 91.3 fL (80-100); MEAN CORPUSCULAR HEMOGLOBIN 29.8 pg (25-34); MEAN CORPUSCULAR HGB CONC 32.7 g/dl (32-36); MEAN PLATELET VOLUME 10.6 fL (7.4-10.4); MONO % 13.5 %; PLATELET COUNT 229 K/uL (130-400); RED BLOOD COUNT 4.59 M/uL (4.2-5.4); WHITE BLOOD COUNT 6.24 K/uL (4.8-10.8)
[2017-06-29 12:20] LABS: ALT/SGPT 33 U/L (12-78); AMYLASE 43 U/L (25-115); BLOOD UREA NITROGEN 29 mg/dl (7-18); BUN/CREATININE RATIO 26.4 (10-20); CALCIUM 9.8 mg/dl (8.5-10.1); CARBON DIOXIDE 31 mmol/L (21-32); CHLORIDE 100 mmol/L (98-107); CHOLESTEROL 227 mg/dl (0-200); CREATININE 1.08 mg/dl (0.60-1.20); GLUCOSE 119 mg/dl (70-99); POTASSIUM 4.7 mmol/L (3.5-5.1); SODIUM 138 mmol/L (136-145)
[2017-06-29 12:29] LABS: ALB/GLOB RATIO 0.9 (0.9-2); ALKALINE PHOSPHATASE 90 U/L (45-117); AST/SGOT 18 U/L (15-37); CHOLESTEROL/HDL RATIO 5.3; CREATININE RANDOM URINE 24.7 mg/dl; HDL CHOLESTEROL 43 mg/dl; THYROID STIMULATING HORMONE 0.563 uIu/ml (0.300-4.500); TRIGLYCERIDES 403 mg/dl (0-150)
[2017-06-29 12:40] LABS: RATIO 37.8 mcg/mg (0-30.0)
[2017-06-29 13:03] LABS: ESTIMATED AVERAGE GLUCOSE 128 mg/dl; HA1C FLAG Normal (Normal)
== END | disposition home or self-care (01) ==
LOC: C.LAB1850 10:04
PROVIDERS: ATTEND Nurse Practitioner Adult Health
DX: M25.561 Pain in right knee (principal); R22.9 Localized swelling, mass and lump, unspecified; E11.49 Type 2 diabetes mellitus with other diabetic neurological complication; E11.22 Type 2 diabetes mellitus with diabetic chronic kidney disease; I12.9 Hypertensive chronic kidney disease with stage 1 through stage 4 chronic kidney disease, or unspecified chronic kidney disease; E66.01 Morbid (severe) obesity due to excess calories; N18.3 Chronic kidney disease, stage 3 (moderate); E03.9 Hypothyroidism, unspecified; E78.5 Hyperlipidemia, unspecified; R74.8 Abnormal levels of other serum enzymes

== ENCOUNTER → 2017-09-14 | Outpatient (CLI) | payer OTHER ==
[2017-09-14 17:06] LABS: CREATININE RANDOM URINE 70.6 mg/dl
[2017-09-14 17:20] LABS: BLOOD UREA NITROGEN 31 mg/dl (7-18); CALCIUM 10.6 mg/dl (8.5-10.1); CARBON DIOXIDE 31 mmol/L (21-32); CREATININE 1.16 mg/dl (0.60-1.20); GLUCOSE 125 mg/dl (70-99); POTASSIUM 4.1 mmol/L (3.5-5.1); SODIUM 138 mmol/L (136-145)
[2017-09-15 06:30] LABS: HEMOGLOBIN A1C 6.4 % (4.5-5.6)
== END | disposition home or self-care (01) ==
LOC: C.LAB1850 15:28
PROVIDERS: ATTEND Nurse Practitioner Adult Health
DX: E03.9 Hypothyroidism, unspecified (principal); G25.81 Restless legs syndrome; E11.49 Type 2 diabetes mellitus with other diabetic neurological complication; I12.9 Hypertensive chronic kidney disease with stage 1 through stage 4 chronic kidney disease, or unspecified chronic kidney disease; E66.01 Morbid (severe) obesity due to excess calories; N18.3 Chronic kidney disease, stage 3 (moderate); E78.5 Hyperlipidemia, unspecified

== ENCOUNTER → 2017-09-15 | Outpatient (CLI) | payer OTHER | END | disposition home or self-care (01) | LOC: C.LAB1850 14:48 | PROVIDERS: ATTEND Internal Medicine Endocrinology, Diabetes & Metabolism | DX: E83.52 Hypercalcemia (principal) ==

== ENCOUNTER 2020-09-19 18:32 | Inpatient (IN) ==
[2020-09-19] MEDS ORDERED: ACETAMINOPHEN 500 MG TAB PO STA (18:51)
[2020-09-19] MEDS ORDERED: SODIUM CHLORIDE 0.9% 1000ML 1,000 ML IV SCH (19:00)
--- NOTE | 2020-09-19 19:07 | Emergency Department Note ---
Impression & Plan Bilateral leg weakness, Fall, Headache, Acute pain of right knee ED Provider Note INFORMANT: Patient ED PROVIDER(S): Adan Mccoy MD CHIEF COMPLAINT: Weakness PLAN: Disposition: Admitted Condition: Good Outpatient prescription management: none Referral: None MEDICAL DECISION MAKING: Patient presented after multiple falls. CT imaging of the head was negative. ECG did not reveal any acute findings. She was weak in the lower extremities. She had CT imaging of her lower lumbar spine performed. There are significant degenerative changes noted. No fracture. She had an unremarkable CBC and chemistry panel. Urinalysis revealed no signs of infection. Chest x-ray negative. Given her multiple falls and significant weakness further management in the hospital will be necessary. Consultation was made with Dr. Ricci Price of the [facility] service. Patient was evaluated in the ER for further management. Triage Nursing notes reviewed and agree them. Additional history obtained from patient's Prior records reviewed. The patient has not had any back imaging done in the last 4 years. Vital Signs: reviewed and remarkable for no significant abnormalities Differential diagnosis: Infection, dehydration, metabolic abnormality, hypo/hyperglycemia, spinal stenosis, electrolyte disturbance, anemia, hypoxia, cardiac sources, intracerebral event, toxicologic, neurologic, as well as other pathologies. Diagnostics interpreted by me: ECG: Twelve-lead ECG reveals atrial fibrillation with slow ventricular sponsor 51 bpm. Left axis deviation and septal Q waves. No ST elevation or depression. No PVC. Cardiac Monitoring: Cardiac monitoring ordered by me: The patient was placed on continuous cardiac monitoring and observed. It revealed atrial fibrillation at 59 beats per minute. Imaging studies: Chest x-ray. Findings: A chest x-ray was performed and revealed no pneumothorax, effusion, infiltrate, pulmonary edema, free air under the diaphragm, or wide mediastinum. Impression: No acute disease. X-ray imaging of the right knee reveals mild effusion but no fracture. Head CT: A noncontrast CT scan of the head was performed and was negative for tumor, fracture, intracranial hemorrhage, or other acute pathology. Lumbar spine CT reveals degenerative changes and surgical hardware. I refer you to the EMR for further details. HPI: The patient is a 74 year old female who presents to the Emergency Room with complaints of leg weakness. This started months ago and is worsening. It is bilateral. The patient has fallen multiple times including twice in the last 24 hours. The patient also notes the following associated symptoms, feeling mildly feverish and urinary frequency with concerns for UTI. The patient is anticoagulated. She has a mild headache but does not remember if she hit her head. She has mild memory loss which has been slowly developing per family. The patient has has been given no medication for relieving factors. Current pain is rated as 3/10. Pt denies LOC, headache, fevers, chills, diaphoresis, visual changes, neck pain, chest pain, breathing difficulties, nausea, vomiting, abdominal pain, back pain, melena, hematochezia, urinary symptoms, numbness, lymphadenopathy, rash, or other complaints. ROS: See above HPI for pertinent positives & negatives. A total of 10 systems reviewed and were otherwise negative. PAST MEDICAL HISTORY:See Below , atrial fibrillation, dementia PAST SURGICAL HISTORY:See Below, FAMILY HISTORY:See Below SOCIAL HISTORY:See Below, HOME MEDICATIONS:See Below ALLERGIES:See Below VITALS:See Below PHYSICAL EXAMINATION: GENERAL: Awake, alert, well-appearing, in no distress HENT: Normocephalic, atraumatic. Oropharynx unremarkable. EYES: Normal conjunctiva. Sclera non-icteric. NECK: Inspection normal. Non-tender. Supple. No nuchal rigidity. FROM. No masses. RESPIRATORY: Clear to auscultation. No wheezes. No rales. Normal respiratory effort. CARDIAC: Normal rate. Irregular rhythm. No murmurs. No rubs. Extremities warm and well perfused. Pulses equal. No JVD. GI: Soft, non-distended. No tenderness to palpation. No rebound or guarding. No masses. RECTAL: Deferred. MUSCULOSKELETAL: Atraumatic. Chest examination reveals no tenderness. The back is symmetrical on inspection without obvious abnormality. There is no CVA tenderness to palpation. No joint edema. LOWER EXTREMITIES: Calves are equal size bilaterally and non-tender. No edema. No discoloration. NEURO: Normal sensorium. No sensory or motor deficits noted in the upper extremities. There is no sensory deficits in the lower extremities. There is significant weakness noted bilaterally with trying to raise her legs off the bed. Decent strength with flexing and pointing her toes.. SKIN: No rash or jaundice noted. Adan Mccoy MD Past Med/Surg History Medical History Acquired claw toe of left foot Acquired claw toe of right foot Acquired hallux valgus of right foot Acute kidney injury Allergic rhinitis Atrial fibrillation Callus Chest pain Chronic back pain Degenerative disc disease Dysesthesia Dysphagia Familial tremor GERD (gastroesophageal reflux disease) Graves disease WITH RADIOACTIVE IODINE Hallux valgus (acquired), left foot Hypercalcemia Hyperlipidemia Hyperparathyroidism Hypertension Hypothyroidism Insomnia Loss of protective sensation of skin of deformed foot Microalbuminuria Morbid obesity Osteoarthritis Primary hyperparathyroidism Seborrheic keratosis Septicemia TREATED AT [facility] (BEGINNING OF 2017) AFFECTED RIGHT LEG. Sinus bradycardia Sleep apnea CPAP Type 2 diabetes mellitus with diabetic peripheral angiopathy without gangrene Surgical History Fusion of spine X3 (LUMBAR) History of adenoidectomy History of appendectomy LAP History of bilateral tubal ligation History of cataract surgery BILATERAL History of cholecystectomy LAP History of colonoscopy History of esophagogastroduodenoscopy (EGD) History of herniorrhaphy UMBILICAL REPAIR x 2 History of tonsillectomy History of total hip arthroplasty BILATERAL History of total knee replacement BILATERAL History of total shoulder replacement RIGHT Nausea and vomiting after administration of anesthetic agent Family History Father Family history of diabetes mellitus Arthritis Hypertension Stroke Lung disease Obesity Diabetes Mother Arthritis Diabetes Hypertension Stroke Obesity Depression Brother Depression Suicide Aunt Uterine cancer Grandfather (Maternal) Colorectal cancer Aunt Colorectal cancer Denies family history of Prostate cancer Myocardial infarction Breast cancer Social History Smoking Status: Never smoker Second Hand Exposure: No; Hx Alcohol Use: No Hx Substance Use: No Preferred Language: [place] Communication Ability: Effective Visual Impairment: Limited Hearing Ability: Normal Shoe Sticks Repairer Required: No Beliefs That Will Affect Care: None marital status: Current Living Situation: Spouse current occupational status: retired Feels Safe at Home: Yes Childhood Exposure to Second-Hand Smoke: Yes Dental Care, Regularly: Yes Physical Activity Frequency: 3-4 Times per Week Seatbelt Use: always Sunscreen Use: Yes Assistive Devices: Walker Allergies Allergies Allergy/AdvReac Type Severity Reaction Status Date / Time Aminoglycosides Allergy Intermediate rash Verified 09/19/20 20:46 neomycin Allergy Intermediate RASH Verified 09/19/20 20:46 nickel Allergy Intermediate rash Verified 09/19/20 20:46 piroxicam Allergy Intermediate RASH Verified 09/19/20 20:46 polymyxin B Allergy Intermediate rash Verified 09/19/20 20:46 house dust Allergy Mild Sneezing Verified 09/19/20 20:46 oxycodone [From Roxicodone] AdvReac Mild Shakiness Verified 09/19/20 20:46 Jactpls-Kna-Tru Reductase AdvReac Mild MUSCLE AND Verified 09/19/20 20:46 Inhibitor JOINT PAIN Home Meds Home Medications Medication Instructions Recorded Confirmed digoxin 125 mcg PO QAM 04/15/18 09/19/20 dofetilide [Tikosyn] 250 mcg PO BID 04/15/18 09/19/20 losartan 100 mg PO QAM 04/15/18 09/19/20 benzonatate 200 mg capsule 200 mg PO TID PRN cap 12/25/19 09/19/20 acetaminophen 500 mg tablet 1,000 mg PO HS tab 04/09/20 09/19/20 diclofenac sodium 1 % topical gel 2 g TOPICAL QID PRN g 06/05/20 09/19/20 fluticasone propionate 50 1 spray INTNAS DAILY PRN ml 06/05/20 09/19/20 mcg/actuation nasal spray,suspension lidocaine 4 % topical patch 1 patch TOPICAL Q24H PRN 06/05/20 09/19/20 metoprolol tartrate 50 mg tablet 75 mg PO BID tab 06/05/20 09/19/20 diphenhydramine HCl 25 mg capsule 25 mg PO DAILY PRN cap 08/26/20 09/19/20 insulin glargine 100 unit/mL (3 8 unit SUBCUT HS ml 08/26/20 09/19/20 mL) subcutaneous pen melatonin 5 mg capsule 5 mg PO HS cap 08/26/20 09/19/20 alpha lipoic acid 100 mg PO BID 09/09/20 09/19/20 cinacalcet 30 mg tablet 30 mg PO DAILY 09/16/20 09/19/20 levothyroxine 137 mcg PO DAILYBB 09/19/20 09/19/20 Previous Rx's Medication Instructions Recorded albuterol sulfate 90 mcg/actuation 1 - 2 puffs INHALATION Q4H PRN 06/15/19 aerosol inhaler #8.5 gm metformin 500 mg tablet 1,000 mg PO BID #120 tab 01/30/20 hydroxyzine HCl 25 mg tablet 25 - 50 mg PO HS PRN #60 tab 05/16/20 rabeprazole 20 mg tablet,delayed 20 mg PO DAILY #30 tab 05/16/20 release amlodipine 2.5 mg tablet 2.5 mg PO HS #90 tab 06/10/20 rivaroxaban 15 mg tablet 15 mg PO DAILY #30 tab 06/10/20 pregabalin 100 mg capsule 100 mg PO TID #90 cap 08/14/20 chlorzoxazone 500 mg tablet 500 mg PO HS #30 tab 08/23/20 duloxetine 60 mg capsule,delayed 60 mg PO HS #90 cap 08/27/20 release fenofibrate nanocrystallized 145 145 mg PO DAILY #30 tab 08/30/20 mg tablet Results & Data (ED) Vital Signs Vital Signs - 24 hr 09/19/20 18:37 09/19/20 18:39 09/19/20 18:43 Temperature 37.5 C Temperature Source Oral Pulse Rate 60 66 59 L Pulse Rate [Apical] 66 Pulse Rate from SpO2 Sensor 60 64 Pulse Rhythm Respiratory Rate 18 20 28 H Respiratory Effort / Characteristics Non-Labored Spontaneous Respiratory Depth Normal Respiratory Pattern Regular Blood Pressure 180/94 H 180/94 H Blood Pressure [Left Arm] 180/94 H Blood Pressure Mean 122 122 Blood Pressure Mean [Left Arm] 122 Pulse Oximetry 91 93 92 Oxygen Delivery Method Room Air Sepsis Recent Fever Within 48 Hours No Sepsis New/Unexplained Change in Mental Status No Sepsis Action Taken by Nursing No Action Required 09/19/20 18:51 09/19/20 19:00 09/19/20 19:30 Temperature Temperature Source Pulse Rate 66 59 L Pulse Rate [Apical] Pulse Rate from SpO2 Sensor 59 L 57 L Pulse Rhythm Irregular Respiratory Rate 19 28 H Respiratory Effort / Characteristics Respiratory Depth Respiratory Pattern Blood Pressure Blood Pressure [Left Arm] Blood Pressure Mean Blood Pressure Mean [Left Arm] Pulse Oximetry 93 94 Oxygen Delivery Method Room Air Sepsis Recent Fever Within 48 Hours Sepsis New/Unexplained Change in Mental Status Sepsis Action Taken by Nursing 09/19/20 20:00 09/19/20 20:03 09/19/20 20:30 Temperature Temperature Source Pulse Rate 60 58 L 66 Pulse Rate [Apical] Pulse Rate from SpO2 Sensor 68 56 L 67 Pulse Rhythm Respiratory Rate 23 24 19 Respiratory Effort / Characteristics Respiratory Depth Respiratory Pattern Blood Pressure 175/89 H Blood Pressure [Left Arm] Blood Pressure Mean 117 Blood Pressure Mean [Left Arm] Pulse Oximetry 91 92 92 Oxygen Delivery Method Sepsis Recent Fever Within 48 Hours Sepsis New/Unexplained Change in Mental Status Sepsis Action Taken by Nursing 09/19/20 20:40 09/19/20 20:50 09/19/20 21:00 Temperature Temperature Source Pulse Rate 53 L 57 L 58 L Pulse Rate [Apical] Pulse Rate from SpO2 Sensor 53 L 60 Pulse Rhythm Respiratory Rate 22 15 21 Respiratory Effort / Characteristics Respiratory Depth Respiratory Pattern Blood Pressure Blood Pressure [Left Arm] Blood Pressure Mean Blood Pressure Mean [Left Arm] Pulse Oximetry 93 94 Oxygen Delivery Method Sepsis Recent Fever Within 48 Hours Sepsis New/Unexplained Change in Mental Status Sepsis Action Taken by Nursing 09/19/20 21:10 09/19/20 21:20 09/19/20 21:30 Temperature Temperature Source Pulse Rate 55 L 60 62 Pulse Rate [Apical] Pulse Rate from SpO2 Sensor 57 L 60 57 L Pulse Rhythm Respiratory Rate 22 29 H 20 Respiratory Effort / Characteristics Respiratory Depth Respiratory Pattern Blood Pressure Blood Pressure [Left Arm] Blood Pressure Mean Blood Pressure Mean [Left Arm] Pulse Oximetry 91 92 91 Oxygen Delivery Method Sepsis Recent Fever Within 48 Hours Sepsis New/Unexplained Change in Mental Status Sepsis Action Taken by Nursing 09/19/20 21:40 09/19/20 21:50 09/19/20 22:00 Temperature Temperature Source Pulse Rate 51 L 60 62 Pulse Rate [Apical] Pulse Rate from SpO2 Sensor 66 55 L 56 L Pulse Rhythm Respiratory Rate 20 14 25 H Respiratory Effort / Characteristics Respiratory Depth Respiratory Pattern Blood Pressure Blood Pressure [Left Arm] Blood Pressure Mean Blood Pressure Mean [Left Arm] Pulse Oximetry 91 93 92 Oxygen Delivery Method Sepsis Recent Fever Within 48 Hours Sepsis New/Unexplained Change in Mental Status Sepsis Action Taken by Nursing 09/19/20 22:10 09/19/20 22:20 09/19/20 22:30 Temperature Temperature Source Pulse Rate 58 L 65 49 L Pulse Rate [Apical] Pulse Rate from SpO2 Sensor 53 L 61 52 L Pulse Rhythm Respiratory Rate 18 22 19 Respiratory Effort / Characteristics Respiratory Depth Respiratory Pattern Blood Pressure Blood Pressure [Left Arm] Blood Pressure Mean Blood Pressure Mean [Left Arm] Pulse Oximetry 92 91 91 Oxygen Delivery Method Sepsis Recent Fever Within 48 Hours Sepsis New/Unexplained Change in Mental Status Sepsis Action Taken by Nursing Laboratory Data Result diagrams: 09/19/20 20:12 09/19/20 20:12 Lab Results 09/19/20 09/19/20 09/19/20 Range/Units 20:11 20:11 20:12 WBC 9.10 (4.8-10.8) K/uL RBC 4.99 (4.2-5.4) M/uL Hgb 14.8 (12.0-16.0) g/dL Hct 43.0 (37-47) % MCV 86.2 (80-100) fL MCH 29.7 (25-34) pg MCHC 34.4 (32-36) g/dL RDW Std Deviation 43.6 (36.4-46.3) fL RDW Coeff of Jeanette 13.9 (11.5-14.5) % Plt Count 270 (130-400) K/uL MPV 10.0 (7.4-10.4) fL Immature Gran % (Auto) 0.3 % Neut % (Auto) 69.1 % Lymph % (Auto) 17.1 % [place] % (Auto) 10.3 % Eos % (Auto) 2.7 % Baso % (Auto) 0.5 % Neut # (Auto) 6.27 (1.4-6.5) K/uL Lymph # (Auto) 1.56 (1.2-3.4) K/uL [place] # (Auto) 0.94 H (0.11-0.59) K/uL Eos # (Auto) 0.25 (0-0.5) K/uL Baso # (Auto) 0.05 (0-0.2) K/uL Immature Gran # (Auto) 0.03 H (0.00-0.02) K/uL Sodium (136-145) mmol/L Potassium (3.5-5.1) mmol/L Chloride (98-107) mmol/L Carbon Dioxide (21-32) mmol/L Anion Gap (3-11) BUN (7-18) mg/dl Creatinine (0.6-1.2) mg/dl Est Cr Clr Drug Dosing ml/min Est GFR ( Amer) Est GFR (Non-Af Amer) BUN/Creatinine Ratio (10-20) Glucose (70-99) mg/dl Calcium (8.5-10.1) mg/dl Magnesium (1.8-2.4) mg/dl Total Bilirubin (0.2-1) mg/dl AST (15-37) U/L ALT (12-78) U/L Alkaline Phosphatase (45-117) U/L Troponin I (0-0.045) ng/ml Total Protein (6.4-8.2) gm/dl Albumin (3.4-5.0) gm/dl Globulin (2.5-4.0) gm/dl Albumin/Globulin Ratio (0.9-2) TSH (0.300-4.500) uIu/ml Urine Color Urine Appearance (Clear) Urine pH (4.5-7.5) Ur Specific [place] (1.000-1.030) Urine Protein (Negative) Urine Glucose (UA) (Negative) Urine Ketones (Negative) Urine Blood (Negative) Urine Nitrite (Negative) Urine Bilirubin (Negative) Urine Urobilinogen (Negative) Ur Leukocyte Esterase (Negative) Urine WBC (Auto) (0-5) /hpf Urine RBC (Auto) (0-4) /hpf U Hyaline Cast (Auto) (0-5) /lpf U Epithel Cells (Auto) (0-5) /lpf Urine Bacteria (Auto) (Negative) COVID[facility]19 [facility], RNA, NAAT NEGATIVE (NEGATIVE) 09/19/20 09/19/20 Range/Units 20:12 20:12 WBC (4.8-10.8) K/uL RBC (4.2-5.4) M/uL Hgb (12.0-16.0) g/dL Hct (37-47) % MCV (80-100) fL MCH (25-34) pg MCHC (32-36) g/dL RDW Std Deviation (36.4-46.3) fL RDW Coeff of Jeanette (11.5-14.5) % Plt Count (130-400) K/uL MPV (7.4-10.4) fL Immature Gran % (Auto) % Neut % (Auto) % Lymph % (Auto) % [place] % (Auto) % Eos % (Auto) % Baso % (Auto) % Neut # (Auto) (1.4-6.5) K/uL Lymph # (Auto) (1.2-3.4) K/uL [place] # (Auto) (0.11-0.59) K/uL Eos # (Auto) (0-0.5) K/uL Baso # (Auto) (0-0.2) K/uL Immature Gran # (Auto) (0.00-0.02) K/uL Sodium 142 (136-145) mmol/L Potassium 4.1 (3.5-5.1) mmol/L Chloride 109 H (98-107) mmol/L Carbon Dioxide 30 (21-32) mmol/L Anion Gap 4.0 (3-11) BUN 28 H (7-18) mg/dl Creatinine 1.16 (0.6-1.2) mg/dl Est Cr Clr Drug Dosing 54.5 ml/min Est GFR ( Amer) 53.7 Est GFR (Non-Af Amer) 46.3 BUN/Creatinine Ratio 24.0 H (10-20) Glucose 107 H (70-99) mg/dl Calcium 10.3 H (8.5-10.1) mg/dl Magnesium 2.0 (1.8-2.4) mg/dl Total Bilirubin 0.4 (0.2-1) mg/dl AST 13 L (15-37) U/L ALT 24 (12-78) U/L Alkaline Phosphatase 60 (45-117) U/L Troponin I < 0.015 (0-0.045) ng/ml Total Protein 7.1 (6.4-8.2) gm/dl Albumin 3.5 (3.4-5.0) gm/dl Globulin 3.6 (2.5-4.0) gm/dl Albumin/Globulin Ratio 1.0 (0.9-2) TSH 3.930 (0.300-4.500) uIu/ml Urine Color Yellow Urine Appearance Clear (Clear) Urine pH 7.0 (4.5-7.5) Ur Specific [place] 1.016 (1.000-1.030) Urine Protein 3+ H (Negative) Urine Glucose (UA) Negative (Negative) Urine Ketones Negative (Negative) Urine Blood Negative (Negative) Urine Nitrite Negative (Negative) Urine Bilirubin Negative (Negative) Urine Urobilinogen Negative (Negative) Ur Leukocyte Esterase Negative (Negative) Urine WBC (Auto) 0 (0-5) /hpf Urine RBC (Auto) 0-4 (0-4) /hpf U Hyaline Cast (Auto) 1-5 (0-5) /lpf U Epithel Cells (Auto) 0-5 (0-5) /lpf Urine Bacteria (Auto) Negative (Negative) COVID-19 Eval Order SARS-CoV-2, RNA, NAAT (NEGATIVE) Administered Medications Sodium Chloride (Nss 1000ml) 1,000 mls @ 125 mls/hr IV .Q8H FRAN Stop: 09/20/20 02:59 Last Admin: 09/19/20 19:10 Dose: 125 mls/hr Documented by: [id number] Discontinued Medications Acetaminophen (Acetaminophen 500 Mg Tab) 1,000 mg PO NOW STA Stop: 09/19/20 18:52 Last Admin: 09/19/20 19:20 Dose: Not Given Documented by: [id number] Acetaminophen (Acetaminophen 500 Mg Tab) Confirm Administered Dose 1,000 mg .ROUTE .STK-MED ONE Stop: 09/19/20 21:12 Last Admin: 09/19/20 21:20 Dose: 1,000 mg Documented by: [id number] Discharge Plan Visit Data Chief Complaint: Leg Weakness, Bilateral Stated Complaint: WEAKNESS, UNABLE TO AMBULATE ED Provider: Adan Mccoy Discharge Problem: Bilateral leg weakness, Fall, Headache, Acute pain of right knee Patient Disposition: Admitted As Inpatient Discharge Instructions Interventions: ED Discharge Assessment Last Done: 09/19/20 23:33
--- NOTE | 2020-09-19 19:26 | XRay Report ---
XR chest 1V portable HISTORY: 74 years-old Female weakness acute weakness COMPARISON: Chest radiograph 09/09/2020 TECHNIQUE: Portable AP view the chest FINDINGS: Cardiac silhouette is mildly enlarged. Calcified plaque of the thoracic aorta. Unchanged asymmetric r ight hilar prominence. No pneumothorax, pleural effusion, airspace consolidation or overt pulmonary e cami. Right shoulder arthroplasty. Degenerative changes of the left shoulder with rotator cuff calcif ic tendinosis. IMPRESSION: No acute process. ACT 112: Negative or not required by law. The above report was generated using voice recognition software. It may contain grammatical, syntax o r spelling errors. Electronically signed by: Miguel Palomo M.D. 09/19/2020 7:24 PM
--- NOTE | 2020-09-19 19:27 | XRay Report ---
XR knee LT 3V HISTORY: 74 years-old Female fall acute left-sided knee pain status post fall COMPARISON: Left femur radiographs 09/09/2020 TECHNIQUE: 3 views of the left knee FINDINGS: Left knee total joint arthroplasty and patella resurfacing. Unchanged corticated ossification along t he medial margin of the medial tibial plateau. No acute fracture, dislocation or hardware complicatio n identified. Small joint effusion. IMPRESSION: Small joint effusion without acute fracture or dislocation. ACT 112: Negative or not required by law. The above report was generated using voice recognition software. It may contain grammatical, syntax o r spelling errors. Electronically signed by: Miguel Palomo M.D. 09/19/2020 7:26 PM
--- NOTE | 2020-09-19 20:02 | CT Scan Report ---
CT head/brain wo con CLINICAL HISTORY: 74 years-old Female with weakness, fall, YOUNG. Acute weakness and headache status po st head trauma TECHNIQUE: Multiple axial CT images of the head were obtained without contrast. A dose lowering tech nique was utilized adhering to the principles of ALARA. CT DOSE: 614.27 mGy.cm COMPARISON: Head CT 09/09/2020. FINDINGS: No acute intracranial hemorrhage, midline shift, intracranial mass, hydrocephalus, territorial ischem ia or abnormal extra-axial collection. Age-related involutional changes with ex vacuo ventriculomegal y. White matter hypodensities suggest chronic microvascular ischemic disease. The calvarium is intact . Mastoid air cells are clear. Mild mucosal thickening of the ethmoid sinuses and nasal turbinates. S oft tissues and orbits are unremarkable. Prior bilateral lens replacement. Mucosal thickening of the nasal turbinates. IMPRESSION: No acute intracranial abnormality. ACT 112: Negative or not required by law. The above report was generated using voice recognition software. It may contain grammatical, syntax o r spelling errors. Electronically signed by: Miguel Palomo M.D. 09/19/2020 8:01 PM
[2020-09-19 20:23] LABS: Basophils # (auto) 0.05 K/uL (0-0.2); Basophils % (auto) 0.5 %; Eosinophils # (auto) 0.25 K/uL (0-0.5); Eosinophils % (auto) 2.7 %; Hemoglobin 14.8 g/dL (12.0-16.0); Immature Granulocytes # (auto) 0.03 K/uL (0.00-0.02); Immature Granulocytes % (auto) 0.3 %; Lymphocytes # (auto) 1.56 K/uL (1.2-3.4); Lymphocytes % (auto) 17.1 %; Mean Corpuscular Hemoglobin 29.7 pg (25-34); Mean Corpuscular Hgb Conc 34.4 g/dL (32-36); Mean Corpuscular Volume 86.2 fL (80-100); Monocytes # (auto) 0.94 K/uL (0.11-0.59); Monocytes % (auto) 10.3 %; Neutrophils # (auto) 6.27 K/uL (1.4-6.5); Neutrophils % (auto) 69.1 %; Platelet Count 270 K/uL (130-400); RDW Coefficient of Variation 13.9 % (11.5-14.5); RDW Standard Deviation 43.6 fL (36.4-46.3); Red Blood Count 4.99 M/uL (4.2-5.4)
--- NOTE | 2020-09-19 20:29 | CT Scan Report ---
CT lumbar spine wo con HISTORY: 74 years-old Female fall, leg weakness acute low back pain status post fall with lower extr emity weakness COMPARISON: CT lumbar spine 05/01/2008 TECHNIQUE: Multiple axial CT images of the lumbar spine were obtained without the use of IV contrast. A dose lowering technique was used consistent with the principals of NATALIE. FINDINGS: Bilateral adrenal gland thickening suggestive of hyperplasia. No abdominal aortic aneurysm. Asymmetri c atrophy of the right psoas muscle. Atrophy of the paraspinal musculature also noted. Lumbar levoscoliosis. Streak artifact from posterior interbody estrada and screw fusion hardware at L1-L5 limits the study. No evidence of hardware fracture. Lucency is noted surrounding the pedicle screws, most pronounced bilaterally at L3 and L4. Discectomy changes at L2-L3, L3-L4 and L5-S1. Complete bon y fusion at L1-L4 with only partial bony fusion at L4-L5. There is minimal posterior fusion L5-S1. Se love intervertebral disc space narrowing at T12-L1 with chronic appearing T12 compression deformity. No acute fracture or subluxation identified. Subcortical cystic changes of the SI joints. IMPRESSION: 1. No acute fracture or subluxation identified. 2. Posterior interbody estrada and screw fusion at L1-L5 with findings suggestive of hardware loosening. 3. Lumbar levoscoliosis. ACT 112: Negative or not required by law. The above report was generated using voice recognition software. It may contain grammatical, syntax o r spelling errors. Electronically signed by: Miguel Palomo M.D. 09/19/2020 8:28 PM
[2020-09-19 20:38] LABS: Alanine Aminotransferase 24 U/L (12-78); Albumin Level 3.5 gm/dl (3.4-5.0); Aspartate Aminotransferase 13 U/L (15-37); Blood Urea Nitrogen 28 mg/dl (7-18); Calcium 10.3 mg/dl (8.5-10.1); Carbon Dioxide 30 mmol/L (21-32); Chloride 109 mmol/L (98-107); Creatinine Clr Calc Pharmacy 54.5 ml/min; Est GFR (African American) 53.7; Est GFR (Non-African American) 46.3; Glucose 107 mg/dl (70-99); Potassium 4.1 mmol/L (3.5-5.1); Sodium 142 mmol/L (136-145)
[2020-09-19 20:43] LABS: Appearance Urine Clear (Clear); Bacteria Urine Automated Negative (Negative); Bilirubin Urine Negative (Negative); Blood Urine Negative (Negative); Color Urine Yellow; Epithelial Cell Urine Auto 0-5 /lpf (0-5); Glucose Urine UA Negative (Negative); Ketones Urine Negative (Negative); Leukocyte Esterase Urine Negative (Negative); Nitrite Urine Negative (Negative); Protein Urine 3+ (Negative); RBC Urine Automated 0-4 /hpf (0-4); Specific Gravity Urine 1.016 (1.000-1.030); Urobilinogen Urine Negative (Negative); WBC Urine Automated 0 /hpf (0-5)
[2020-09-19 20:49] LABS: Alkaline Phosphatase 60 U/L (45-117); Bilirubin,Total 0.4 mg/dl (0.2-1); Globulin 3.6 gm/dl (2.5-4.0); Total Protein 7.1 gm/dl (6.4-8.2); Troponin I < 0.015 ng/ml (0-0.045)
[2020-09-19] MEDS ORDERED: ACETAMINOPHEN 500 MG TAB ONE (21:11)
--- NOTE | 2020-09-19 21:41 | History & Physical Report ---
Date of Service September 19, 2020 Assessment & Plan (1) Bilateral leg weakness: Most likely secondary to deconditioning Patient states that she requires a walker to help her walk around does not do a whole lot of walking on her own. Strength testing showed continued strength of hip extensors bilaterally but severe weakness in hip flexors bilaterally. She is able to lift her leg in the air against gravity but has a very difficult time against any sort of resistance. No signs of inflammatory markers indicative of rheumatologic or infectious process Consider MRI to evaluate nerve compression into left leg (2) Fall: Lumbar spine CT without contrast showing posterior interbody estrada and screw fusion at L1-L5 with some findings suggestive of hardware loosening -Dr. Mederos consulted for opinion regarding hardware and need for repair Left knee x-ray showing small joint effusion without acute fracture dislocation Head CT negative for acute intercranial hemorrhage Home pain control of 60 mg duloxetine, Tylenol 1 g every 8, Lyrica 100 mg 3 times daily, (3) Primary hyperparathyroidism: (4) Hypercalcemia: (5) Hyperparathyroidism: (6) Controlled type 2 diabetes mellitus with neurologic complication, with long- term current use of insulin: Continue Lantus 8 units nightly Sliding scale insulin for mealtime Hold Metformin on outpatient p.o. medications (7) Atrial fibrillation: Continue amlodipine 2.5 nightly, digoxin 125 mcg, losartan 100 mg, metoprolol 75 twice daily for blood pressure and rate control Anticoagulated rivaroxaban 15 mg daily DVT prophylaxis: Anticoagulated on Eliquis FEN/GI: Heart healthy, carb conscious diet CODE STATUS: Full code Dispo, MedSurg. PT OT evaluations ordered History of Present Illness 74-year-old female with a past medical history of multiple spinal surgeries for vertebral fusion, diabetic peripheral neuropathy, type 2 diabetes, primary hyperparathyroidism, A. fib, HLD, TIERRA, GERD, asthma who presents for emergency department with complaints of leg weakness bilaterally left greater than right. She states that this weakness has been going on for some months now but acutely has gotten worse in the last week or so. She states she has long-term peripheral neuropathy because approximately a half of her calves on both sides. Describes the pain is going from 0-10 intermittently and without pattern. She describes it as a wincing, spasmodic pain that goes from her foot to her left knee. She denies radiation up her leg or in her pelvis or lower abdomen area. Her who is also at bedside notes that approximately 1 week ago she fell at home and that is what launched the complaints of increased pain. Today her pain episode was triggered by going down 3 stairs and having her foot slide out from underneath her and landing on the stair herself. She states that she could feel her knees giving out underneath her just before she fell. Denies any dizziness or lightheadedness or blurred vision before falling. Outside of her longstanding peripheral neuropathy she denies any numbness tingling. Primary Care Provider: Dirk Cooper DO Allergies Allergy/AdvReac Type Severity Reaction Status Date / Time Aminoglycosides Allergy Intermediate rash Verified 09/19/20 20:46 neomycin Allergy Intermediate RASH Verified 09/19/20 20:46 nickel Allergy Intermediate rash Verified 09/19/20 20:46 piroxicam Allergy Intermediate RASH Verified 09/19/20 20:46 polymyxin B Allergy Intermediate rash Verified 09/19/20 20:46 house dust Allergy Mild Sneezing Verified 09/19/20 20:46 oxycodone [From Roxicodone] AdvReac Mild Shakiness Verified 09/19/20 20:46 Bgwakgu-Ear-Tdw Reductase AdvReac Mild MUSCLE AND Verified 09/19/20 20:46 Inhibitor JOINT PAIN Home Medications Medication Instructions Recorded Confirmed Type digoxin 125 mcg PO QAM 04/15/18 09/19/20 History dofetilide [Tikosyn] 250 mcg PO BID 04/15/18 09/19/20 History losartan 100 mg PO QAM 04/15/18 09/19/20 History albuterol sulfate 90 mcg/actuation 1 - 2 puffs INHALATION Q4H PRN 06/15/19 09/19/20 Rx aerosol inhaler #8.5 gm benzonatate 200 mg capsule 200 mg PO TID PRN cap 12/25/19 09/19/20 History metformin 500 mg tablet 1,000 mg PO BID #120 tab 01/30/20 09/19/20 Rx acetaminophen 500 mg tablet 1,000 mg PO HS tab 04/09/20 09/19/20 History hydroxyzine HCl 25 mg tablet 25 - 50 mg PO HS PRN #60 tab 05/16/20 09/19/20 Rx rabeprazole 20 mg tablet,delayed 20 mg PO DAILY #30 tab 05/16/20 09/19/20 Rx release diclofenac sodium 1 % topical gel 2 g TOPICAL QID PRN g 06/05/20 09/19/20 History fluticasone propionate 50 1 spray INTNAS DAILY PRN ml 06/05/20 09/19/20 History mcg/actuation nasal spray,suspension lidocaine 4 % topical patch 1 patch TOPICAL Q24H PRN 06/05/20 09/19/20 History metoprolol tartrate 50 mg tablet 75 mg PO BID tab 06/05/20 09/19/20 History amlodipine 2.5 mg tablet 2.5 mg PO HS #90 tab 06/10/20 09/19/20 Rx rivaroxaban 15 mg tablet 15 mg PO DAILY #30 tab 06/10/20 09/19/20 Rx pregabalin 100 mg capsule 100 mg PO TID #90 cap 08/14/20 09/19/20 Rx chlorzoxazone 500 mg tablet 500 mg PO HS #30 tab 08/23/20 09/19/20 Rx diphenhydramine HCl 25 mg capsule 25 mg PO DAILY PRN cap 08/26/20 09/19/20 History insulin glargine 100 unit/mL (3 8 unit SUBCUT HS ml 08/26/20 09/19/20 History mL) subcutaneous pen melatonin 5 mg capsule 5 mg PO HS cap 08/26/20 09/19/20 History duloxetine 60 mg capsule,delayed 60 mg PO HS #90 cap 08/27/20 09/19/20 Rx release fenofibrate nanocrystallized 145 145 mg PO DAILY #30 tab 08/30/20 09/19/20 Rx mg tablet alpha lipoic acid 100 mg PO BID 09/09/20 09/19/20 History cinacalcet 30 mg tablet 30 mg PO DAILY 09/16/20 09/19/20 History levothyroxine 137 mcg PO DAILYBB 09/19/20 09/19/20 History Past Med/Surg History Medical History Acquired claw toe of left foot Acquired claw toe of right foot Acquired hallux valgus of right foot Allergic rhinitis Atrial fibrillation Callus Chest pain Chronic back pain Degenerative disc disease Dysesthesia Dysphagia Familial tremor GERD (gastroesophageal reflux disease) Graves disease WITH RADIOACTIVE IODINE Hallux valgus (acquired), left foot Hypercalcemia Hyperlipidemia Hyperparathyroidism Hypertension Hypothyroidism Insomnia Loss of protective sensation of skin of deformed foot Microalbuminuria Morbid obesity Osteoarthritis Primary hyperparathyroidism Seborrheic keratosis Septicemia TREATED AT [facility] (BEGINNING OF 2017) AFFECTED RIGHT LEG. Sinus bradycardia Sleep apnea CPAP Type 2 diabetes mellitus with diabetic peripheral angiopathy without gangrene Surgical History Fusion of spine X3 (LUMBAR) History of adenoidectomy History of appendectomy LAP History of bilateral tubal ligation History of cataract surgery BILATERAL History of cholecystectomy LAP History of colonoscopy History of esophagogastroduodenoscopy (EGD) History of herniorrhaphy UMBILICAL REPAIR x 2 History of tonsillectomy History of total hip arthroplasty BILATERAL History of total knee replacement BILATERAL History of total shoulder replacement RIGHT Nausea and vomiting after administration of anesthetic agent Family History Father Family history of diabetes mellitus Arthritis Hypertension Stroke Lung disease Obesity Diabetes Mother Arthritis Diabetes Hypertension Stroke Obesity Depression Brother Depression Suicide Aunt Uterine cancer Grandfather (Maternal) Colorectal cancer Aunt Colorectal cancer Denies family history of Prostate cancer Myocardial infarction Breast cancer Social History Smoking Status: Never smoker Second Hand Exposure: No; Hx Alcohol Use: No Hx Substance Use: No Preferred Language: Nepali Communication Ability: Effective Visual Impairment: Limited Hearing Ability: Normal 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: No Beliefs That Will Affect Care: None marital status: Current Living Situation: Spouse current occupational status: retired Other Information That Helps Us Care for You: No Feels Safe at Home: Yes Safety Concerns: Feels Safe At This Time Childhood Exposure to Second-Hand Smoke: Yes Dental Care, Regularly: Yes Physical Activity Frequency: 3-4 Times per Week Seatbelt Use: always Sunscreen Use: Yes Assistive Devices: Walker Review of Systems Constitutional: no fever, no chills, no body aches and no fatigue Respiratory: no cough and no dyspnea Cardiovascular: no chest pain, no dyspnea and no edema Gastrointestinal: no abdominal pain, no nausea, no vomiting, no constipation and no diarrhea/loose stools Genitourinary: no dysuria, no hematuria and no pelvic pain Physical Exam Physical Exam: Constitutional: obese, visibly wincing in pain multiple times throughout interview, otherwise in no apparent distress, sitting comfortably in bed. Eyes: EOMI, pupils equal and reactive bilaterally, no scleral icterus Cardiac: RRR, no murmurs, gallops or rubs. Normal S1, S2 Pulm: CTA BL, no wheezes, rhonchi, crackles or rubs, moving air well throughout both lungs Abd: soft, distended, TTP inLUQ, normal bowel sounds, no rebound or guarding Extremities: 2+ peripheral pulses, no edema Neuro: no focal deficits, moving all 4 limbs, A&Ox3 Results & Data Results & Data ([facility]) Vital Signs (Past 12 Hours) Vital Signs Temp Pulse Pulse Resp BP BP Pulse Ox 09/19/20 20:30 66 19 92 09/19/20 20:03 58 L 24 175/89 H 92 09/19/20 20:00 60 23 91 09/19/20 19:30 59 L 28 H 94 09/19/20 19:00 66 19 93 09/19/20 18:43 59 L 28 H 92 09/19/20 18:39 37.5 C 66 66 20 180/94 H 180/94 H 93 09/19/20 18:37 60 18 180/94 H 91 Laboratory Results WBC 9.10 K/uL (4.8-10.8) 09/19/20 20:12 RBC 4.99 M/uL (4.2-5.4) 09/19/20 20:12 Hgb 14.8 g/dL (12.0-16.0) 09/19/20 20:12 Hct 43.0 % (37-47) 09/19/20 20:12 MCV 86.2 fL (80-100) 09/19/20 20:12 MCH 29.7 pg (25-34) 09/19/20 20:12 MCHC 34.4 g/dL (32-36) 09/19/20 20:12 RDW Std Deviation 43.6 fL (36.4-46.3) 09/19/20 20:12 RDW Coeff of Jeanette 13.9 % (11.5-14.5) 09/19/20 20:12 Plt Count 270 K/uL (130-400) 09/19/20 20:12 MPV 10.0 fL (7.4-10.4) 09/19/20 20:12 Immature Gran % (Auto) 0.3 % 09/19/20 20:12 Neut % (Auto) 69.1 % 09/19/20 20:12 Lymph % (Auto) 17.1 % 09/19/20 20:12 [place] % (Auto) 10.3 % 09/19/20 20:12 Eos % (Auto) 2.7 % 09/19/20 20:12 Baso % (Auto) 0.5 % 09/19/20 20:12 Neut # (Auto) 6.27 K/uL (1.4-6.5) 09/19/20 20:12 Lymph # (Auto) 1.56 K/uL (1.2-3.4) 09/19/20 20:12 Treasure # (Auto) 0.94 K/uL (0.11-0.59) H 09/19/20 20:12 Eos # (Auto) 0.25 K/uL (0-0.5) 09/19/20 20:12 Baso # (Auto) 0.05 K/uL (0-0.2) 09/19/20 20:12 Immature Gran # (Auto) 0.03 K/uL (0.00-0.02) H 09/19/20 20:12 Sodium 142 mmol/L (136-145) 09/19/20 20:12 Potassium 4.1 mmol/L (3.5-5.1) 09/19/20 20:12 Chloride 109 mmol/L (98-107) H 09/19/20 20:12 Carbon Dioxide 30 mmol/L (21-32) 09/19/20 20:12 Anion Gap 4.0 (3-11) 09/19/20 20:12 BUN 28 mg/dl (7-18) H 09/19/20 20:12 Creatinine 1.16 mg/dl (0.6-1.2) 09/19/20 20:12 Est Cr Clr Drug Dosing 54.5 ml/min 09/19/20 20:12 Est GFR ( Amer) 53.7 09/19/20 20:12 Est GFR (Non-Af Amer) 46.3 09/19/20 20:12 BUN/Creatinine Ratio 24.0 (10-20) H 09/19/20 20:12 Glucose 107 mg/dl (70-99) H 09/19/20 20:12 Calcium 10.3 mg/dl (8.5-10.1) H 09/19/20 20:12 Magnesium 2.0 mg/dl (1.8-2.4) 09/19/20 20:12 Total Bilirubin 0.4 mg/dl (0.2-1) 09/19/20 20:12 AST 13 U/L (15-37) L 09/19/20 20:12 ALT 24 U/L (12-78) 09/19/20 20:12 Alkaline Phosphatase 60 U/L (45-117) 09/19/20 20:12 Troponin I < 0.015 ng/ml (0-0.045) 09/19/20 20:12 Total Protein 7.1 gm/dl (6.4-8.2) 09/19/20 20:12 Albumin 3.5 gm/dl (3.4-5.0) 09/19/20 20:12 Globulin 3.6 gm/dl (2.5-4.0) 09/19/20 20:12 Albumin/Globulin Ratio 1.0 (0.9-2) 09/19/20 20:12 TSH 3.930 uIu/ml (0.300-4.500) 09/19/20 20:12 Urine Color Yellow 09/19/20 20:12 Urine Appearance Clear (Clear) 09/19/20 20:12 Urine pH 7.0 (4.5-7.5) 09/19/20 20:12 Ur Specific [place] 1.016 (1.000-1.030) 09/19/20 20:12 Urine Protein 3+ (Negative) H 09/19/20 20:12 Urine Glucose (UA) Negative (Negative) 09/19/20 20:12 Urine Ketones Negative (Negative) 09/19/20 20:12 Urine Blood Negative (Negative) 09/19/20 20:12 Urine Nitrite Negative (Negative) 09/19/20 20:12 Urine Bilirubin Negative (Negative) 09/19/20 20:12 Urine Urobilinogen Negative (Negative) 09/19/20 20:12 Ur Leukocyte Esterase Negative (Negative) 09/19/20 20:12 Urine WBC (Auto) 0 /hpf (0-5) 09/19/20 20:12 Urine RBC (Auto) 0-4 /hpf (0-4) 09/19/20 20:12 U Hyaline Cast (Auto) 1-5 /lpf (0-5) 09/19/20 20:12 U Epithel Cells (Auto) 0-5 /lpf (0-5) 09/19/20 20:12 Urine Bacteria (Auto) Negative (Negative) 09/19/20 20:12 COVID-19 Eval Order Covid19 IDNow [facility] 09/19/20 20:11 SARS-CoV-2, RNA, NAAT NEGATIVE (NEGATIVE) 09/19/20 20:11 Supervising Physician Co-Signing Physician Notes Attending addendum: I have supervised the medical residents activities, and agree with the H&P unless as otherwise noted. Assessment and Plan: Bilateral lower extremity weakness- Has continued ambulatory dysfunction despite use of walker. CT of lumbar spine with question of hardware loosening at site of interbody estrada and screw fusion at L1-L5. Consult Dr. Mederos, orthopedic spine surgery for further assessment Tylenol 1 g p.o. every 8 hours Lyrica 100 mg p.o. 3 times daily Duloxetine 60 mg p.o. daily Atrial fibrillation/hypertension- Continue amlodipine, digoxin, metoprolol and Xarelto. 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
[2020-09-19] MEDS ORDERED: ENOXAPARIN INJ 40 MG/0.4 ML SYR SQ STA (23:17)
[2020-09-20] MEDS ORDERED: FLUTICASONE PROPIONATE NA SPR 16 GM BTL PRN (00:16)
[2020-09-20] MEDS ORDERED: diphenhydrAMINE Capsule 25 MG CAP PO PRN (00:16)
[2020-09-20] MEDS ORDERED: ALUMINUM/MAGNESIUM SUSP 30 ML UDC PO PRN (00:16)
[2020-09-20] MEDS ORDERED: ONDANSETRON INJ 2 MG/ML 2 ML VIAL IV PRN (00:16)
[2020-09-20] MEDS ORDERED: MAGNESIUM HYDROXIDE SUSP 30 ML UDC PO PRN (00:16)
[2020-09-20] MEDS ORDERED: GLUCOSE 10 TABS/TUBE PO PRN (00:16)
[2020-09-20] MEDS ORDERED: DEXTROSE 50% 50 ML SYRINGE IV PRN (00:16)
[2020-09-20] MEDS ORDERED: GLUCAGON FOR INJ 1 MG VIAL SQ PRN (00:16)
[2020-09-20] MEDS ORDERED: DICLOFENAC SOD 1% GEL 100 GM TUBE EXT PRN (00:16)
[2020-09-20] MEDS ORDERED: CARBOHYDRATES FOR HYPOGLYCEMIA PO PRN (00:16)
[2020-09-20] MEDS ORDERED: GLUCOSE 40% GEL 15 GM TUBE PO PRN (00:16)
[2020-09-20] MEDS ORDERED: ACETAMINOPHEN 325 MG TAB PO PRN (00:16)
[2020-09-20] MEDS ORDERED: LIDOCAINE 5% 1 PATCH TD PRN (01:13)
[2020-09-20] MEDS: METOPROLOL TARTRATE 25 MG TAB PO SCH ×3 (01:26→20:27)
[2020-09-20] MEDS: CHLORZOXAZONE 500 MG TAB PO SCH ×2 (01:26→20:27)
[2020-09-20] MEDS: DOFETILIDE 125 MCG CAPSULE PO SCH ×2 (01:26→09:20)
[2020-09-20] MEDS: SENSIPAR~ORDER AWAITING ACTION SCH ×3 (01:27→15:21)
[2020-09-20] MEDS: amLODIPine BESYLATE 5 MG TAB PO SCH ×2 (01:27→20:27)
[2020-09-20] MEDS ORDERED: PREGABALIN 100 MG CAP PO ONE (01:30)
[2020-09-20] MEDS ORDERED: DULoxetine HCL 60 MG CAP PO ONE (01:30)
[2020-09-20] MEDS: PREGABALIN 100 MG CAP PO SCH ×4 (01:37→20:29)
[2020-09-20] MEDS: LEVOTHYROXINE SODIUM 137 MCG TABLET PO SCH (06:06)
[2020-09-20] MEDS: ACETAMINOPHEN 500 MG TAB PO SCH ×3 (06:06→22:13)
[2020-09-20 07:12] LABS: BUN Creatinine Ratio 22.6 (10-20); Creatinine Clr Calc Pharmacy 58.6 ml/min; Est GFR (African American) 59.9; Est GFR (Non-African American) 51.7; Potassium 3.8 mmol/L (3.5-5.1)
[2020-09-20 07:14] LABS: Estimated Average Glucose 134 mg/dl; Hemoglobin A1C 6.3 % (4.5-5.6)
[2020-09-20 08:32] LABS: Hemoglobin 15.3 g/dL (12.0-16.0); Mean Corpuscular Hemoglobin 29.8 pg (25-34); Mean Corpuscular Hgb Conc 34.8 g/dL (32-36); Mean Corpuscular Volume 85.8 fL (80-100); Mean Platelet Volume 10.3 fL (7.4-10.4); Platelet Count 282 K/uL (130-400); RDW Coefficient of Variation 13.8 % (11.5-14.5); RDW Standard Deviation 43.4 fL (36.4-46.3); Red Blood Count 5.13 M/uL (4.2-5.4); White Blood Count 8.27 K/uL (4.8-10.8)
[2020-09-20] MEDS ORDERED: NON-FORMULARY MEDICATION (Alpha Lipoic Acid 100 mg Capsule) PO SCH (09:00)
--- NOTE | 2020-09-20 09:18 | Hospitalist Progress Note ---
Date of Service September 20, 2020 Assessment & Plan (1) Bilateral leg weakness: * Most likely secondary to deconditioning however Lumbar Spine CT w/o contrast with some loosening hardware at L1-L5 and will consult Dr. Mederos * --?MRI pending input from Dr. Mederos * Xray Left knee with small effusion without acute fracture * Head CT without acute hemorrhage * ESR wnl at 10 * UA without evidence of infection * Lyme pending * CK pending * B12 pending * Dig low at 0.7 -- increased dig to .25mcg daily * Consulted Dr. Lopez given afib (previously in NSR prior to September EKG in our system and patient with reported bradycardia. ?contributing to weakness) * PT/OT evals pending -- patient agreeable to rehab at d/c if needed * Placed on NSS @ 80cc/hr for some dehydration and lack of oral intake * WBC without elevation * Afebrile but did report low grade temp 99F yesterday which is high for her -- consider abd imaging for weakness if other cause not determined * Pain control 60 mg duloxetine, Tylenol 1 g every 8, Lyrica 100 mg 3 times daily, * Continue inpatient stay * Labs in AM Fall * Lumbar spine CT without contrast showing posterior interbody estrada and screw fusion at L1-L5 with some findings suggestive of hardware loosening * Dr Medreos consulted as above * CT Head negative * PT/OT pending * Consider outpatient EMG testing? Hypercalcemia * hx of and had elevated Ca 10.3 on admission with normal albumin * Given IVF and repeat Ca 10.0 * Deferred on parathryoidectomy outpatient and wanted continued monitoring * MRI previously without evidence fo adenoma * Continue home medications and IVF as above Controlled type 2 diabetes mellitus with neurologic complication, with long-term current use of insulin: * A1c 6.3 * Continue Lantus 8 units nightly * Sliding scale insulin for mealtime * Hold Metformin on outpatient p.o. medications * BSGs acceptable Atrial fibrillation * Continue amlodipine 2.5 nightly, digoxin 125 mcg, losartan 100 mg, metoprolol 75 twice daily, Tikosyn 250mcg BID daily for blood pressure and rate control * ?Tikosyn continued use given patient in afib... * Xarelto 15mg daily * Dig low at 0.7 -- increased dig to 0.25mcg as above. Dr. Lopez consulted Hypothyroidism * Continue levothyroxine 137mcg daily * TSH wnl HTN * Chronic with HLD * Continue metoprolol 75mg BID , amlodipine 2.5mg, losartan 100mg daily fenofibrate * Continue to monitor CKD III * Kidney function stable * Monitor BMP Dispo: from home. PT/OT pending likely some rehab at discharge (2) Fall: (3) Weakness: (4) Hypercalcemia: (5) Hyperparathyroidism: (6) Diabetic peripheral neuropathy: (7) Controlled type 2 diabetes mellitus with neurologic complication, with long- term current use of insulin: (8) Atrial fibrillation: (9) Hypertension: (10) Hyperlipidemia: (11) Hypothyroidism: (12) GERD (gastroesophageal reflux disease): (13) Osteoarthritis: (14) CKD (chronic kidney disease), stage III: Admission and Anticipated Discharge Date Admission Date: September 19, 2020 Subjective Patient evaluated this morning. Feeling well outside of her weakness. Did have some urinary incontinence which has happened in the past when shes had UTIs. UA without evidence of infection. Some lower abdominal discomfort. No changes in her bowel habits. Has periumbilical hernia but no change in appearance or pain. Upper extremities without weakness and she notes they are her "strong suit". Previously seen in office with recs for rehab but wasn't warranted at that time. Obtaining additional lab testing and she will be seen by PT/OT with possible rehab at discharge. Patient agreeable for rehab if those are recommendations. Has neuropathy at baseline but weakness worse on her left side she states. Discussed imaging and will have Dr. Rosa M phan for possible loosening hardware. Had a temp of 99F yesterday which is high for her as she typically runs low. No shortness of breath/cough/sputum. Low digoxin level and increasing her dose for today. Follows with Dr. Lopez. Notes her heart rates in the ER in the past have dropped to the 30s. Will c onsult [employer] cards. Questions/concerns addressed at this time. Will continue to monitor overnight. Review of Systems Review of Systems: All systems reviewed & are unremarkable except as noted in HPI & below Physical Exam Constitutional: well developed, well nourished, + obese, cooperative and comfortable; no acute distress Eyes: + anicteric sclerae and PERRL ENMT: dry mm Neck: normal visual inspection and trachea midline Respiratory: normal respiratory effort, lungs clear to auscultation Cardiovascular: Rate/Rhythm: + bradycardic and + irregularly irregular Vessels: no JVD Extremities: no edema Gastrointestinal (Abdomen): Inspection/Auscultation: normal bowel sounds; + abdomen abnormal to inspection (periumbilical hernia, reducible non-tender) Percussion/Palpation: abdomen soft; no guarding and abdomen not rigid Musculoskeletal: good strength with hip flexion/extension decreased plantar/dorsiflexion 4/5 to LLE compared to the right NVI pulses palpable bilaterally calves non-tender to palpation Skin: warm, dry Neurologic: PERRL, EOMI, accommodation nl, no face palsy, no dysarthria Psychiatric: A+Ox3, euthymic affect Lymphatic: no cervical or axillary lymphadenopathy Results & Data Results & Data ([facility]) Vital Signs (Past 12 Hours) Vital Signs Temp Pulse Pulse Pulse Resp BP BP 09/20/20 07:37 37.0 C 55 L 18 151/79 H 09/20/20 00:39 36.8 C 62 20 180/89 H 09/19/20 22:40 55 L 21 09/19/20 22:30 49 L 19 09/19/20 22:20 65 22 09/19/20 22:10 58 L 18 09/19/20 22:00 62 25 H 09/19/20 21:50 60 14 09/19/20 21:40 51 L 20 09/19/20 21:30 62 20 09/19/20 21:20 60 29 H Pulse Ox 09/20/20 07:37 91 09/20/20 00:39 92 09/19/20 22:40 92 09/19/20 22:30 91 09/19/20 22:20 91 09/19/20 22:10 92 09/19/20 22:00 92 09/19/20 21:50 93 09/19/20 21:40 91 09/19/20 21:30 91 09/19/20 21:20 92 Laboratory Results 09/20/20 09/20/20 09/20/20 Range/Units 08:12 08:12 08:12 WBC 8.27 (4.8-10.8) K/uL RBC 5.13 (4.2-5.4) M/uL Hgb 15.3 (12.0-16.0) g/dL Hct 44.0 (37-47) % MCV 85.8 (80-100) fL MCH 29.8 (25-34) pg MCHC 34.8 (32-36) g/dL RDW Std Deviation 43.4 (36.4-46.3) fL RDW Coeff of Jeanette 13.8 (11.5-14.5) % Plt Count 282 (130-400) K/uL MPV 10.3 (7.4-10.4) fL Immature Gran % (Auto) % Neut % (Auto) % Lymph % (Auto) % [place] % (Auto) % Eos % (Auto) % Baso % (Auto) % Neut # (Auto) (1.4-6.5) K/uL Lymph # (Auto) (1.2-3.4) K/uL [place] # (Auto) (0.11-0.59) K/uL Eos # (Auto) (0-0.5) K/uL Baso # (Auto) (0-0.2) K/uL Immature Gran # (Auto) (0.00-0.02) K/uL ESR (0-21) mm/hr Sodium (136-145) mmol/L Potassium (3.5-5.1) mmol/L Chloride (98-107) mmol/L Carbon Dioxide (21-32) mmol/L Anion Gap (3-11) BUN (7-18) mg/dl Creatinine (0.6-1.2) mg/dl Est Cr Clr Drug Dosing ml/min Est GFR ( Amer) Est GFR (Non-Af Amer) BUN/Creatinine Ratio (10-20) Glucose (70-99) mg/dl POC Glucose (70-99) mg/dl Estimat Average Glucose mg/dl Hemoglobin A1c (4.5-5.6) % Calcium (8.5-10.1) mg/dl Magnesium (1.8-2.4) mg/dl Total Bilirubin (0.2-1) mg/dl AST (15-37) U/L ALT (12-78) U/L Alkaline Phosphatase (45-117) U/L Total Creatine Kinase 79 (26-192) U/L Troponin I (0-0.045) ng/ml Total Protein (6.4-8.2) gm/dl Albumin (3.4-5.0) gm/dl Globulin (2.5-4.0) gm/dl Albumin/Globulin Ratio (0.9-2) Vitamin B12 TSH (0.300-4.500) uIu/ml Urine Color Urine Appearance (Clear) Urine pH (4.5-7.5) Ur Specific [place] (1.000-1.030) Urine Protein (Negative) Urine Glucose (UA) (Negative) Urine Ketones (Negative) Urine Blood (Negative) Urine Nitrite (Negative) Urine Bilirubin (Negative) Urine Urobilinogen (Negative) Ur Leukocyte Esterase (Negative) Urine WBC (Auto) (0-5) /hpf Urine RBC (Auto) (0-4) /hpf U Hyaline Cast (Auto) (0-5) /lpf U Epithel Cells (Auto) (0-5) /lpf Urine Bacteria (Auto) (Negative) Digoxin (0.8-2.0) ng/ml Lyme Disease IgG Ab Pending Lyme Disease IgM Ab Pending COVID-19 Eval Order SARS-CoV-2, RNA, NAAT (NEGATIVE) 09/20/20 09/20/20 09/20/20 Range/Units 08:12 08:12 08:10 WBC (4.8-10.8) K/uL RBC (4.2-5.4) M/uL Hgb (12.0-16.0) g/dL Hct (37-47) % MCV (80-100) fL MCH (25-34) pg MCHC (32-36) g/dL RDW Std Deviation (36.4-46.3) fL RDW Coeff of Jeanette (11.5-14.5) % Plt Count (130-400) K/uL MPV (7.4-10.4) fL Immature Gran % (Auto) % Neut % (Auto) % Lymph % (Auto) % [place] % (Auto) % Eos % (Auto) % Baso % (Auto) % Neut # (Auto) (1.4-6.5) K/uL Lymph # (Auto) (1.2-3.4) K/uL [place] # (Auto) (0.11-0.59) K/uL Eos # (Auto) (0-0.5) K/uL Baso # (Auto) (0-0.2) K/uL Immature Gran # (Auto) (0.00-0.02) K/uL ESR 10 (0-21) mm/hr Sodium (136-145) mmol/L Potassium (3.5-5.1) mmol/L Chloride (98-107) mmol/L Carbon Dioxide (21-32) mmol/L Anion Gap (3-11) BUN (7-18) mg/dl Creatinine (0.6-1.2) mg/dl Est Cr Clr Drug Dosing ml/min Est GFR ( Amer) Est GFR (Non-Af Amer) BUN/Creatinine Ratio (10-20) Glucose (70-99) mg/dl POC Glucose 123 H (70-99) mg/dl Estimat Average Glucose mg/dl Hemoglobin A1c (4.5-5.6) % Calcium (8.5-10.1) mg/dl Magnesium (1.8-2.4) mg/dl Total Bilirubin (0.2-1) mg/dl AST (15-37) U/L ALT (12-78) U/L Alkaline Phosphatase (45-117) U/L Total Creatine Kinase (26-192) U/L Troponin I (0-0.045) ng/ml Total Protein (6.4-8.2) gm/dl Albumin (3.4-5.0) gm/dl Globulin (2.5-4.0) gm/dl Albumin/Globulin Ratio (0.9-2) Vitamin B12 Pending TSH (0.300-4.500) uIu/ml Urine Color Urine Appearance (Clear) Urine pH (4.5-7.5) Ur Specific [place] (1.000-1.030) Urine Protein (Negative) Urine Glucose (UA) (Negative) Urine Ketones (Negative) Urine Blood (Negative) Urine Nitrite (Negative) Urine Bilirubin (Negative) Urine Urobilinogen (Negative) Ur Leukocyte Esterase (Negative) Urine WBC (Auto) (0-5) /hpf Urine RBC (Auto) (0-4) /hpf U Hyaline Cast (Auto) (0-5) /lpf U Epithel Cells (Auto) (0-5) /lpf Urine Bacteria (Auto) (Negative) Digoxin (0.8-2.0) ng/ml Lyme Disease IgG Ab Lyme Disease IgM Ab COVID-19 Eval Order SARS-CoV-2, RNA, NAAT (NEGATIVE) 09/20/20 09/20/20 09/20/20 Range/Units 05:57 05:57 05:57 WBC (4.8-10.8) K/uL RBC (4.2-5.4) M/uL Hgb (12.0-16.0) g/dL Hct (37-47) % MCV (80-100) fL MCH (25-34) pg MCHC (32-36) g/dL RDW Std Deviation (36.4-46.3) fL RDW Coeff of Jeanette (11.5-14.5) % Plt Count (130-400) K/uL MPV (7.4-10.4) fL Immature Gran % (Auto) % Neut % (Auto) % Lymph % (Auto) % [place] % (Auto) % Eos % (Auto) % Baso % (Auto) % Neut # (Auto) (1.4-6.5) K/uL Lymph # (Auto) (1.2-3.4) K/uL [place] # (Auto) (0.11-0.59) K/uL Eos # (Auto) (0-0.5) K/uL Baso # (Auto) (0-0.2) K/uL Immature Gran # (Auto) (0.00-0.02) K/uL ESR (0-21) mm/hr Sodium 144 (136-145) mmol/L Potassium 3.8 (3.5-5.1) mmol/L Chloride 110 H (98-107) mmol/L Carbon Dioxide 28 (21-32) mmol/L Anion Gap 5.0 (3-11) BUN 24 H (7-18) mg/dl Creatinine 1.06 (0.6-1.2) mg/dl Est Cr Clr Drug Dosing 58.6 ml/min Est GFR ( Amer) 59.9 Est GFR (Non-Af Amer) 51.7 BUN/Creatinine Ratio 22.6 H (10-20) Glucose 103 H (70-99) mg/dl POC Glucose (70-99) mg/dl Estimat Average Glucose 134 mg/dl Hemoglobin A1c 6.3 H (4.5-5.6) % Calcium 10.0 (8.5-10.1) mg/dl Magnesium (1.8-2.4) mg/dl Total Bilirubin (0.2-1) mg/dl AST (15-37) U/L ALT (12-78) U/L Alkaline Phosphatase (45-117) U/L Total Creatine Kinase (26-192) U/L Troponin I (0-0.045) ng/ml Total Protein (6.4-8.2) gm/dl Albumin (3.4-5.0) gm/dl Globulin (2.5-4.0) gm/dl Albumin/Globulin Ratio (0.9-2) Vitamin B12 TSH (0.300-4.500) uIu/ml Urine Color Urine Appearance (Clear) Urine pH (4.5-7.5) Ur Specific [place] (1.000-1.030) Urine Protein (Negative) Urine Glucose (UA) (Negative) Urine Ketones (Negative) Urine Blood (Negative) Urine Nitrite (Negative) Urine Bilirubin (Negative) Urine Urobilinogen (Negative) Ur Leukocyte Esterase (Negative) Urine WBC (Auto) (0-5) /hpf Urine RBC (Auto) (0-4) /hpf U Hyaline Cast (Auto) (0-5) /lpf U Epithel Cells (Auto) (0-5) /lpf Urine Bacteria (Auto) (Negative) Digoxin 0.7 L (0.8-2.0) ng/ml Lyme Disease IgG Ab Lyme Disease IgM Ab COVID-19 Eval Order SARS-CoV-2, RNA, NAAT (NEGATIVE) 09/19/20 09/19/20 09/19/20 Range/Units 20:12 20:12 20:12 WBC 9.10 (4.8-10.8) K/uL RBC 4.99 (4.2-5.4) M/uL Hgb 14.8 (12.0-16.0) g/dL Hct 43.0 (37-47) % MCV 86.2 (80-100) fL MCH 29.7 (25-34) pg MCHC 34.4 (32-36) g/dL RDW Std Deviation 43.6 (36.4-46.3) fL RDW Coeff of Jeanette 13.9 (11.5-14.5) % Plt Count 270 (130-400) K/uL MPV 10.0 (7.4-10.4) fL Immature Gran % (Auto) 0.3 % Neut % (Auto) 69.1 % Lymph % (Auto) 17.1 % [place] % (Auto) 10.3 % Eos % (Auto) 2.7 % Baso % (Auto) 0.5 % Neut # (Auto) 6.27 (1.4-6.5) K/uL Lymph # (Auto) 1.56 (1.2-3.4) K/uL [place] # (Auto) 0.94 H (0.11-0.59) K/uL Eos # (Auto) 0.25 (0-0.5) K/uL Baso # (Auto) 0.05 (0-0.2) K/uL Immature Gran # (Auto) 0.03 H (0.00-0.02) K/uL ESR (0-21) mm/hr Sodium 142 (136-145) mmol/L Potassium 4.1 (3.5-5.1) mmol/L Chloride 109 H (98-107) mmol/L Carbon Dioxide 30 (21-32) mmol/L Anion Gap 4.0 (3-11) BUN 28 H (7-18) mg/dl Creatinine 1.16 (0.6-1.2) mg/dl Est Cr Clr Drug Dosing 54.5 ml/min Est GFR ( Amer) 53.7 Est GFR (Non-Af Amer) 46.3 BUN/Creatinine Ratio 24.0 H (10-20) Glucose 107 H (70-99) mg/dl POC Glucose (70-99) mg/dl Estimat Average Glucose mg/dl Hemoglobin A1c (4.5-5.6) % Calcium 10.3 H (8.5-10.1) mg/dl Magnesium 2.0 (1.8-2.4) mg/dl Total Bilirubin 0.4 (0.2-1) mg/dl AST 13 L (15-37) U/L ALT 24 (12-78) U/L Alkaline Phosphatase 60 (45-117) U/L Total Creatine Kinase (26-192) U/L Troponin I < 0.015 (0-0.045) ng/ml Total Protein 7.1 (6.4-8.2) gm/dl Albumin 3.5 (3.4-5.0) gm/dl Globulin 3.6 (2.5-4.0) gm/dl Albumin/Globulin Ratio 1.0 (0.9-2) Vitamin B12 TSH 3.930 (0.300-4.500) uIu/ml Urine Color Yellow Urine Appearance Clear (Clear) Urine pH 7.0 (4.5-7.5) Ur Specific [place] 1.016 (1.000-1.030) Urine Protein 3+ H (Negative) Urine Glucose (UA) Negative (Negative) Urine Ketones Negative (Negative) Urine Blood Negative (Negative) Urine Nitrite Negative (Negative) Urine Bilirubin Negative (Negative) Urine Urobilinogen Negative (Negative) Ur Leukocyte Esterase Negative (Negative) Urine WBC (Auto) 0 (0-5) /hpf Urine RBC (Auto) 0-4 (0-4) /hpf U Hyaline Cast (Auto) 1-5 (0-5) /lpf U Epithel Cells (Auto) 0-5 (0-5) /lpf Urine Bacteria (Auto) Negative (Negative) Digoxin (0.8-2.0) ng/ml Lyme Disease IgG Ab Lyme Disease IgM Ab COVID-19 Eval Order SARS-CoV-2, RNA, NAAT (NEGATIVE) 09/19/20 09/19/20 Range/Units 20:11 20:11 WBC (4.8-10.8) K/uL RBC (4.2-5.4) M/uL Hgb (12.0-16.0) g/dL Hct (37-47) % MCV (80-100) fL MCH (25-34) pg MCHC (32-36) g/dL RDW Std Deviation (36.4-46.3) fL RDW Coeff of Jeanette (11.5-14.5) % Plt Count (130-400) K/uL MPV (7.4-10.4) fL Immature Gran % (Auto) % Neut % (Auto) % Lymph % (Auto) % [place] % (Auto) % Eos % (Auto) % Baso % (Auto) % Neut # (Auto) (1.4-6.5) K/uL Lymph # (Auto) (1.2-3.4) K/uL [place] # (Auto) (0.11-0.59) K/uL Eos # (Auto) (0-0.5) K/uL Baso # (Auto) (0-0.2) K/uL Immature Gran # (Auto) (0.00-0.02) K/uL ESR (0-21) mm/hr Sodium (136-145) mmol/L Potassium (3.5-5.1) mmol/L Chloride (98-107) mmol/L Carbon Dioxide (21-32) mmol/L Anion Gap (3-11) BUN (7-18) mg/dl Creatinine (0.6-1.2) mg/dl Est Cr Clr Drug Dosing ml/min Est GFR ( Amer) Est GFR (Non-Af Amer) BUN/Creatinine Ratio (10-20) Glucose (70-99) mg/dl POC Glucose (70-99) mg/dl Estimat Average Glucose mg/dl Hemoglobin A1c (4.5-5.6) % Calcium (8.5-10.1) mg/dl Magnesium (1.8-2.4) mg/dl Total Bilirubin (0.2-1) mg/dl AST (15-37) U/L ALT (12-78) U/L Alkaline Phosphatase (45-117) U/L Total Creatine Kinase (26-192) U/L Troponin I (0-0.045) ng/ml Total Protein (6.4-8.2) gm/dl Albumin (3.4-5.0) gm/dl Globulin (2.5-4.0) gm/dl Albumin/Globulin Ratio (0.9-2) Vitamin B12 TSH (0.300-4.500) uIu/ml Urine Color Urine Appearance (Clear) Urine pH (4.5-7.5) Ur Specific [place] (1.000-1.030) Urine Protein (Negative) Urine Glucose (UA) (Negative) Urine Ketones (Negative) Urine Blood (Negative) Urine Nitrite (Negative) Urine Bilirubin (Negative) Urine Urobilinogen (Negative) Ur Leukocyte Esterase (Negative) Urine WBC (Auto) (0-5) /hpf Urine RBC (Auto) (0-4) /hpf U Hyaline Cast (Auto) (0-5) /lpf U Epithel Cells (Auto) (0-5) /lpf Urine Bacteria (Auto) (Negative) Digoxin (0.8-2.0) ng/ml Lyme Disease IgG Ab Lyme Disease IgM Ab COVID-19 Eval Order Covid19 [facility] SARS-CoV-2, RNA, NAAT NEGATIVE (NEGATIVE) PG Care Time/CCT Total # of Minutes Spent Total Time Spent with Patient: Total time spent is greater than 50% in coord ination of care (as documented) at patient's floor/unit and/or counseling patient: Coding Level of Care Code 73279 Subseq Obs Care Lvl 3 Diagnoses Bilateral leg weakness R29.898 Fall W19.XXXA Weakness R53.1 Hypercalcemia E83.52 Hyperparathyroidism E21.3 Diabetic peripheral neuropathy E11.42 Controlled type 2 diabetes mellitus with neurologic complication, with long-term current use of insulin E11.42; Z79.4 Diabetes mellitus complication detail: with polyneuropathy Atrial fibrillation I48.91 Hypertension I10 Hyperlipidemia E78.5 Hypothyroidism E03.9 GERD (gastroesophageal reflux disease) K21.9 Osteoarthritis M19.90 CKD (chronic kidney disease), stage III N18.3 (1) Controlled type 2 diabetes mellitus with neurologic complication, with long- term current use of insulin Diabetes mellitus complication detail: with polyneuropathy Qualified Code(s): E11.42 - Type 2 diabetes mellitus with diabetic polyneuropathy; Z79.4 - shelter (current) use of insulin
[2020-09-20] MEDS: PANTOprazole 40 MG TAB PO SCH (09:21)
[2020-09-20] MEDS: RIVAROXABAN 15 MG TAB PO SCH (09:21)
[2020-09-20] MEDS: LOSARTAN POTASSIUM 50 MG TAB PO SCH (09:21)
[2020-09-20] MEDS: CYCLOBENZAPRINE HCL 5 MG TAB PO SCH (09:22)
[2020-09-20] MEDS: FENOFIBRATE NANOCRYSTALLIZED 145 MG TABLET PO SCH (09:22)
[2020-09-20] MEDS: POLYETHYLENE (MIRALAX) 17 GM PACK PO SCH (09:22)
[2020-09-20] MEDS: INSULIN ASPART 100 UNITS/ML 3 ML PEN SC SCH ×4 (09:30→20:25)
[2020-09-20] MEDS: SODIUM CHLORIDE 0.9% 1000ML 1,000 ML IV SCH ×2 (10:14→22:13)
[2020-09-20 10:15] LABS: Lyme Ab IgG w/WB Rflx Negative (Negative); Lyme Ab IgM w/WB Rflx Negative (Negative)
--- NOTE | 2020-09-20 12:32 | Orthopedic Consultation ---
Date of Consultation September 20, 2020 Assessment & Plan (1) Bilateral leg weakness: Did discuss the patient's case at this time I had a discussion with the patient regarding MRI of the thoracic spine she agrees with this plan. We will obtain these imaging and I will review these findings and and discussed them with the patient. Clearly would be hesitant to recommend any surgical intervention in light of her health history. Present on Admission?: Yes History of Present Illness Reason for Consultation: Bilateral leg weakness Attending Physician: Richard Cox MD History of Present Illness This is a 74-year-old female well-known to me from undergoing significant lumbar fusion several years ago. She states over the past 3 or 4 weeks she has noticed marked decline in function of her legs. She describes weakness involving her quadriceps and a component of pain. She has noted several falls over the past several weeks. She does live at home with her . Allergies Allergy/AdvReac Type Severity Reaction Status Date / Time Aminoglycosides Allergy Intermediate rash Verified 09/19/20 20:46 neomycin Allergy Intermediate RASH Verified 09/19/20 20:46 nickel Allergy Intermediate rash Verified 09/19/20 20:46 piroxicam Allergy Intermediate RASH Verified 09/19/20 20:46 polymyxin B Allergy Intermediate rash Verified 09/19/20 20:46 house dust Allergy Mild Sneezing Verified 09/19/20 20:46 oxycodone [From Roxicodone] AdvReac Mild Shakiness Verified 09/19/20 20:46 Xmchrtp-[id number] Reductase AdvReac Mild MUSCLE AND Verified 09/19/20 20:46 Inhibitor JOINT PAIN Home Medications Medication Instructions Recorded Confirmed Type digoxin 125 mcg PO QAM 04/15/18 09/19/20 History dofetilide [Tikosyn] 250 mcg PO BID 04/15/18 09/19/20 History losartan 100 mg PO QAM 04/15/18 09/19/20 History albuterol sulfate 90 mcg/actuation 1 - 2 puffs INHALATION Q4H PRN 06/15/19 09/19/20 Rx aerosol inhaler #8.5 gm benzonatate 200 mg capsule 200 mg PO TID PRN cap 12/25/19 09/19/20 History metformin 500 mg tablet 1,000 mg PO BID #120 tab 01/30/20 09/19/20 Rx acetaminophen 500 mg tablet 1,000 mg PO HS tab 04/09/20 09/19/20 History hydroxyzine HCl 25 mg tablet 25 - 50 mg PO HS PRN #60 tab 05/16/20 09/19/20 Rx rabeprazole 20 mg tablet,delayed 20 mg PO DAILY #30 tab 05/16/20 09/19/20 Rx release diclofenac sodium 1 % topical gel 2 g TOPICAL QID PRN g 06/05/20 09/19/20 History fluticasone propionate 50 1 spray INTNAS DAILY PRN ml 06/05/20 09/19/20 History mcg/actuation nasal spray,suspension lidocaine 4 % topical patch 1 patch TOPICAL Q24H PRN 06/05/20 09/19/20 History metoprolol tartrate 50 mg tablet 75 mg PO BID tab 06/05/20 09/19/20 History amlodipine 2.5 mg tablet 2.5 mg PO HS #90 tab 06/10/20 09/19/20 Rx rivaroxaban 15 mg tablet 15 mg PO DAILY #30 tab 06/10/20 09/19/20 Rx pregabalin 100 mg capsule 100 mg PO TID #90 cap 08/14/20 09/19/20 Rx chlorzoxazone 500 mg tablet 500 mg PO HS #30 tab 08/23/20 09/19/20 Rx diphenhydramine HCl 25 mg capsule 25 mg PO DAILY PRN cap 08/26/20 09/19/20 History insulin glargine 100 unit/mL (3 8 unit SUBCUT HS ml 08/26/20 09/19/20 History mL) subcutaneous pen melatonin 5 mg capsule 5 mg PO HS cap 08/26/20 09/19/20 History duloxetine 60 mg capsule,delayed 60 mg PO HS #90 cap 08/27/20 09/19/20 Rx release fenofibrate nanocrystallized 145 145 mg PO DAILY #30 tab 08/30/20 09/19/20 Rx mg tablet alpha lipoic acid 100 mg PO BID 09/09/20 09/19/20 History cinacalcet 30 mg tablet 30 mg PO DAILY 09/16/20 09/19/20 History levothyroxine 137 mcg PO DAILYBB 09/19/20 09/19/20 History Patient History Medical History Acquired claw toe of left foot Acquired claw toe of right foot Acquired hallux valgus of right foot Acute kidney injury Allergic rhinitis Atrial fibrillation Callus Chest pain Chronic back pain Degenerative disc disease Dysesthesia Dysphagia Familial tremor GERD (gastroesophageal reflux disease) Graves disease WITH RADIOACTIVE IODINE Hallux valgus (acquired), left foot Hypercalcemia Hyperlipidemia Hyperparathyroidism Hypertension Hypothyroidism Insomnia Loss of protective sensation of skin of deformed foot Microalbuminuria Morbid obesity Osteoarthritis Primary hyperparathyroidism Seborrheic keratosis Septicemia TREATED AT [facility] (BEGINNING OF 2017) AFFECTED RIGHT LEG. Sinus bradycardia Sleep apnea CPAP Type 2 diabetes mellitus with diabetic peripheral angiopathy without gangrene Surgical History Fusion of spine X3 (LUMBAR) History of adenoidectomy History of appendectomy LAP History of bilateral tubal ligation History of cataract surgery BILATERAL History of cholecystectomy LAP History of colonoscopy History of esophagogastroduodenoscopy (EGD) History of herniorrhaphy UMBILICAL REPAIR x 2 History of tonsillectomy History of total hip arthroplasty BILATERAL History of total knee replacement BILATERAL History of total shoulder replacement RIGHT Nausea and vomiting after administration of anesthetic agent Family History Father Family history of diabetes mellitus Arthritis Hypertension Stroke Lung disease Obesity Diabetes Mother Arthritis Diabetes Hypertension Stroke Obesity Depression Brother Depression Suicide Aunt Uterine cancer Grandfather (Maternal) Colorectal cancer Aunt Colorectal cancer Denies family history of Prostate cancer Myocardial infarction Breast cancer Social History Smoking Status: Never smoker Second Hand Exposure: No; Hx Alcohol Use: No Hx Substance Use: No Preferred Language: Citizen Of [place] Communication Ability: Effective Visual Impairment: Limited Hearing Ability: Normal Store Host Required: No Beliefs That Will Affect Care: None marital status: Current Living Situation: Spouse current occupational status: retired Other Information That Helps Us Care for You: No Feels Safe at Home: Yes Safety Concerns: Feels Safe At This Time Childhood Exposure to Second-Hand Smoke: Yes Dental Care, Regularly: Yes Physical Activity Frequency: 3-4 Times per Week Seatbelt Use: always Sunscreen Use: Yes Assistive Devices: Walker Physical Exam Physical Exam: Patient is in the chair at the bedside. She has reasonable plantar flexion dorsiflexion. Not have her stand for my exam. Sensory is intact to cold and light touch to lower extremities. Deep tendon reflexes diminished. Results & Data ([facility]) Vital Signs (Past 12 Hours) Vital Signs Temp Pulse Pulse Resp BP BP Pulse Ox 09/20/20 07:37 37.0 C 55 L 18 151/79 H 91 09/20/20 00:39 36.8 C 62 20 180/89 H 92
--- NOTE | 2020-09-20 13:52 | Electrocardiogram Report ---
Test Reason : Blood Pressure : / mmHG Vent. Rate : 051 BPM Atrial Rate : 250 BPM P-R Int : 000 ms QRS Dur : 116 ms QT Int : 446 ms P-R-T Axes : 000 -59 014 degrees QTc Int : 411 ms Atrial fibrillation with slow ventricular response Left axis deviation Septal infarct , age undetermined Abnormal ECG When compared with ECG of 09-SEP-2020 08:56, No significant change was found Confirmed by John Irvin ([id number]) on 09/20/2020 1:52:23 PM Referred By: REFERRED SELF Confirmed By:John Irvin
--- NOTE | 2020-09-20 15:12 | Cardiology Consultation ---
Date of Consultation September 20, 2020 Assessment & Plan (1) Atrial fibrillation with slow ventricular response: Patient is a 74-year-old female with complex constellation of underlying medical issues as noted in HPI. She has a history of longstanding paroxysmal atrial fibrillation previously controlled in sinus rhythm with antiarrhythmic therapy/Tikosyn. In the past she has been significantly symptomatic when in atrial fibrillation due to tachyarrhythmias. Current complaints of weakness and fatigue are association with newly observed (09/09/2020) recurrence of her atrial fibrillation though with slow ventricular response rate. This may not be the ultimate source of complaints but may easily be contributing. Underlying conduction system disease is present with past EKGs demonstrating bifascicular and trifascicular heart block. Recommendations: I discussed findings in detail with the patient. Suspect ultimately will proceed with rate control over rhythm control algorithm for atrial fibrillation. We will discontinue Tikosyn and digoxin continue metoprolol at current dosing for now though may need to decrease. Would recommend telemetry during hospitalization to exclude profound bradycardia arrhythmias as a culprit. Discussed use of pacemaker and tachybradycardia syndrome should this develop or further conduction abnormalities be observed Anticoagulation to be continued, echocardiogram ordered. (2) Paroxysmal atrial fibrillation: (3) Bilateral leg weakness: (4) Sleep apnea: (5) Hyperparathyroidism: (6) Bifascicular bundle branch block: History of Present Illness Reason for Consultation: Atrial fibrillation with slow ventricular response rate Requesting Physician: Dr. Cox Attending Physician: Richard Cox MD History of Present Illness Patient is a complex 74-year-old female admitted with leg weakness and fatigue. On presentation noted to be in atrial fibrillation with slow ventricular response. Her ongoing issues include 1. Paroxysmal atrial fibrillation on chronic antiarrhythmic therapy with Tikosyn, prior multiple cardioversion 2. 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 Hypertension 4. Ankylosing spondylitis with prior spinal surgery 5. Type 2 diabetes mellitus 6. Morbid obesity with obstructive sleep apnea 7. Diabetes mellitus with peripheral neuropathy 8. Hyperparathyroidism with hypercalcemia Patient presents now having been admitted with increasing leg fatigue and weakness. Patient was seen in the emergency room initially on 09/09/2020 with weakness complaints. EKG at that time did demonstrate atrial fibrillation with slow ventricular response She presents now with multifocal complaints of weakness fatigue and poor exercise tolerance. She denies dizziness lightheadedness syncope or near syncope. Notes no fevers chills or unexplained infections. Notes no bleeding difficulties. Has been taking medications as prescribed. No acute weight loss or gain. No change in sleep pattern Allergies Allergy/AdvReac Type Severity Reaction Status Date / Time Aminoglycosides Allergy Intermediate rash Verified 09/19/20 20:46 neomycin Allergy Intermediate RASH Verified 09/19/20 20:46 nickel Allergy Intermediate rash Verified 09/19/20 20:46 piroxicam Allergy Intermediate RASH Verified 09/19/20 20:46 polymyxin B Allergy Intermediate rash Verified 09/19/20 20:46 house dust Allergy Mild Sneezing Verified 09/19/20 20:46 oxycodone [From Roxicodone] AdvReac Mild Shakiness Verified 09/19/20 20:46 [id number] Reductase AdvReac Mild MUSCLE AND Verified 09/19/20 20:46 Inhibitor JOINT PAIN Home Medications Medication Instructions Recorded Confirmed Type digoxin 125 mcg PO QAM 04/15/18 09/19/20 History dofetilide [Tikosyn] 250 mcg PO BID 04/15/18 09/19/20 History losartan 100 mg PO QAM 04/15/18 09/19/20 History albuterol sulfate 90 mcg/actuation 1 - 2 puffs INHALATION Q4H PRN 06/15/19 09/19/20 Rx aerosol inhaler #8.5 gm benzonatate 200 mg capsule 200 mg PO TID PRN cap 12/25/19 09/19/20 History metformin 500 mg tablet 1,000 mg PO BID #120 tab 01/30/20 09/19/20 Rx acetaminophen 500 mg tablet 1,000 mg PO HS tab 04/09/20 09/19/20 History hydroxyzine HCl 25 mg tablet 25 - 50 mg PO HS PRN #60 tab 05/16/20 09/19/20 Rx rabeprazole 20 mg tablet,delayed 20 mg PO DAILY #30 tab 05/16/20 09/19/20 Rx release diclofenac sodium 1 % topical gel 2 g TOPICAL QID PRN g 06/05/20 09/19/20 Hist ory fluticasone propionate 50 1 spray INTNAS DAILY PRN ml 06/05/20 09/19/20 History mcg/actuation nasal spray,suspension lidocaine 4 % topical patch 1 patch TOPICAL Q24H PRN 06/05/20 09/19/20 History metoprolol tartrate 50 mg tablet 75 mg PO BID tab 06/05/20 09/19/20 History amlodipine 2.5 mg tablet 2.5 mg PO HS #90 tab 06/10/20 09/19/20 Rx rivaroxaban 15 mg tablet 15 mg PO DAILY #30 tab 06/10/20 09/19/20 Rx pregabalin 100 mg capsule 100 mg PO TID #90 cap 08/14/20 09/19/20 Rx chlorzoxazone 500 mg tablet 500 mg PO HS #30 tab 08/23/20 09/19/20 Rx diphenhydramine HCl 25 mg capsule 25 mg PO DAILY PRN cap 08/26/20 09/19/20 History insulin glargine 100 unit/mL (3 8 unit SUBCUT HS ml 08/26/20 09/19/20 History mL) subcutaneous pen melatonin 5 mg capsule 5 mg PO HS cap 08/26/20 09/19/20 History duloxetine 60 mg capsule,delayed 60 mg PO HS #90 cap 08/27/20 09/19/20 Rx release fenofibrate nanocrystallized 145 145 mg PO DAILY #30 tab 08/30/20 09/19/20 Rx mg tablet alpha lipoic acid 100 mg PO BID 09/09/20 09/19/20 History cinacalcet 30 mg tablet 30 mg PO DAILY 09/16/20 09/19/20 History levothyroxine 137 mcg PO DAILYBB 09/19/20 09/19/20 History Patient History Medical History Acquired claw toe of left foot Acquired claw toe of right foot Acquired hallux valgus of right foot Allergic rhinitis Atrial fibrillation Callus Chest pain Chronic back pain Degenerative disc disease Dysesthesia Dysphagia Familial tremor GERD (gastroesophageal reflux disease) Graves disease WITH RADIOACTIVE IODINE Hallux valgus (acquired), left foot Hypercalcemia Hyperlipidemia Hyperparathyroidism Hypertension Hypothyroidism Insomnia Loss of protective sensation of skin of deformed foot Microalbuminuria Morbid obesity Osteoarthritis Primary hyperparathyroidism Seborrheic keratosis Septicemia TREATED AT [facility] (BEGINNING OF 2017) AFFECTED RIGHT LEG. Sinus bradycardia Sleep apnea CPAP Type 2 diabetes mellitus with diabetic peripheral angiopathy without gangrene Surgical History Fusion of spine X3 (LUMBAR) History of adenoidectomy History of appendectomy LAP History of bilateral tubal ligation History of cataract surgery BILATERAL History of cholecystectomy LAP History of colonoscopy History of esophagogastroduodenoscopy (EGD) History of herniorrhaphy UMBILICAL REPAIR x 2 History of tonsillectomy History of total hip arthroplasty BILATERAL History of total knee replacement BILATERAL History of total shoulder replacement RIGHT Nausea and vomiting after administration of anesthetic agent Family History Father Family history of diabetes mellitus Arthritis Hypertension Stroke Lung disease Obesity Diabetes Mother Arthritis Diabetes Hypertension Stroke Obesity Depression Brother Depression Suicide Aunt Uterine cancer Grandfather (Maternal) Colorectal cancer Aunt Colorectal cancer Denies family history of Prostate cancer Myocardial infarction Breast cancer Social History Smoking Status: Never smoker Second Hand Exposure: No; Hx Alcohol Use: No Hx Substance Use: No Preferred Language: Latvian Communication Ability: Effective Visual Impairment: Limited Hearing Ability: Normal Card Hand Required: No Beliefs That Will Affect Care: None marital status: Current Living Situation: Spouse current occupational status: retired Other Information That Helps Us Care for You: No Feels Safe at Home: Yes Safety Concerns: Feels Safe At This Time Childhood Exposure to Second-Hand Smoke: Yes Dental Care, Regularly: Yes Physical Activity Frequency: 3-4 Times per Week Seatbelt Use: always Sunscreen Use: Yes Assistive Devices: Walker Review of Systems Review of Systems: All systems reviewed & are unremarkable except as noted in HPI & below Physical Exam Constitutional: + obese; no acute distress ENMT: external ear and nose normal, oropharynx normal Neck: trachea midline, no thyromegaly + thick neck Respiratory: normal respiratory effort, lungs clear to auscultation Cardiovascular: Rate/Rhythm: + bradycardic and + irregularly irregular Heart Sounds: normal S1 and normal S2; no gallop and no murmur Palpation: normal PMI Vessels: normal carotid upstroke and radial pulses present; no JVD and no carotid bruit Extremities: no edema Gastrointestinal (Abdomen): normal bowel sounds, soft, nontender, no hepatosplenomegaly Musculoskeletal: no cyanosis or clubbing, extremities motor strength 5/5 Skin: no rashes, warm and dry Neurologic: PERRL, EOMI, accommodation nl, no face palsy, no dysarthria Psychiatric: A+Ox3, euthymic affect Results & Data ([facility]) Vital Signs (Past 12 Hours) Vital Signs Temp Pulse Resp BP Pulse Ox 09/20/20 09:15 63 09/20/20 07:37 37.0 C 55 L 18 151/79 H 91 Laboratory Results Laboratory Results - last 24 hr 09/19/20 09/19/20 09/19/20 20:11 20:11 20:12 WBC 9.10 RBC 4.99 Hgb 14.8 Hct 43.0 MCV 86.2 MCH 29.7 MCHC 34.4 RDW Std Deviation 43.6 RDW Coeff of Jeanette 13.9 Plt Count 270 MPV 10.0 Immature Gran % (Auto) 0.3 Neut % (Auto) 69.1 Lymph % (Auto) 17.1 [place] % (Auto) 10.3 Eos % (Auto) 2.7 Baso % (Auto) 0.5 Neut # (Auto) 6.27 Lymph # (Auto) 1.56 [place] # (Auto) 0.94 H Eos # (Auto) 0.25 Baso # (Auto) 0.05 Immature Gran # (Auto) 0.03 H ESR Sodium Potassium Chloride Carbon Dioxide Anion Gap BUN Creatinine Est Cr Clr Drug Dosing Est GFR ( Amer) Est GFR (Non-Af Amer) BUN/Creatinine Ratio Glucose POC Glucose Estimat Average Glucose Hemoglobin A1c Calcium Magnesium Total Bilirubin AST ALT Alkaline Phosphatase Total Creatine Kinase Troponin I Total Protein Albumin Globulin Albumin/Globulin Ratio Vitamin B12 TSH Urine Color Urine Appearance Urine pH Ur Specific [place] Urine Protein Urine Glucose (UA) Urine Ketones Urine Blood Urine Nitrite Urine Bilirubin Urine Urobilinogen Ur Leukocyte Esterase Urine WBC (Auto) Urine RBC (Auto) U Hyaline Cast (Auto) U Epithel Cells (Auto) Urine Bacteria (Auto) Digoxin Lyme Disease IgG Ab Lyme Disease IgM Ab COVID-19 Eval Order Covid19 IDNow atMVTC SARS-CoV-2, RNA, NAAT NEGATIVE 09/19/20 09/19/20 09/20/20 20:12 20:12 05:57 WBC RBC Hgb Hct MCV MCH MCHC RDW Std Deviation RDW Coeff of Jeanette Plt Count MPV Immature Gran % (Auto) Neut % (Auto) Lymph % (Auto) [place] % (Auto) Eos % (Auto) Baso % (Auto) Neut # (Auto) Lymph # (Auto) [place] # (Auto) Eos # (Auto) Baso # (Auto) Immature Gran # (Auto) ESR Sodium 142 144 Potassium 4.1 3.8 Chloride 109 H 110 H Carbon Dioxide 30 28 Anion Gap 4.0 5.0 BUN 28 H 24 H Creatinine 1.16 1.06 Est Cr Clr Drug Dosing 54.5 58.6 Est GFR ( Amer) 53.7 59.9 Est GFR (Non-Af Amer) 46.3 51.7 BUN/Creatinine Ratio 24.0 H 22.6 H Glucose 107 H 103 H POC Glucose Estimat Average Glucose Hemoglobin A1c Calcium 10.3 H 10.0 Magnesium 2.0 Total Bilirubin 0.4 AST 13 L ALT 24 Alkaline Phosphatase 60 Total Creatine Kinase Troponin I < 0.015 Total Protein 7.1 Albumin 3.5 Globulin 3.6 Albumin/Globulin Ratio 1.0 Vitamin B12 TSH 3.930 Urine Color Yellow Urine Appearance Clear Urine pH 7.0 Ur Specific [place] 1.016 Urine Protein 3+ H Urine Glucose (UA) Negative Urine Ketones Negative Urine Blood Negative Urine Nitrite Negative Urine Bilirubin Negative Urine Urobilinogen Negative Ur Leukocyte Esterase Negative Urine WBC (Auto) 0 Urine RBC (Auto) 0-4 U Hyaline Cast (Auto) 1-5 U Epithel Cells (Auto) 0-5 Urine Bacteria (Auto) Negative Digoxin Lyme Disease IgG Ab Lyme Disease IgM Ab COVID-19 Eval Order SARS-CoV-2, RNA, NAAT 09/20/20 09/20/20 09/20/20 05:57 05:57 08:10 WBC RBC Hgb Hct MCV MCH MCHC RDW Std Deviation RDW Coeff of Jeanette Plt Count MPV Immature Gran % (Auto) Neut % (Auto) Lymph % (Auto) [place] % (Auto) Eos % (Auto) Baso % (Auto) Neut # (Auto) Lymph # (Auto) [place] # (Auto) Eos # (Auto) Baso # (Auto) Immature Gran # (Auto) ESR Sodium Potassium Chloride Carbon Dioxide Anion Gap BUN Creatinine Est Cr Clr Drug Dosing Est GFR ( Amer) Est GFR (Non-Af Amer) BUN/Creatinine Ratio Glucose POC Glucose 123 H Estimat Average Glucose 134 Hemoglobin A1c 6.3 H Calcium Magnesium Total Bilirubin AST ALT Alkaline Phosphatase Total Creatine Kinase Troponin I Total Protein Albumin Globulin Albumin/Globulin Ratio Vitamin B12 TSH Urine Color Urine Appearance Urine pH Ur Specific [place] Urine Protein Urine Glucose (UA) Urine Ketones Urine Blood Urine Nitrite Urine Bilirubin Urine Urobilinogen Ur Leukocyte Esterase Urine WBC (Auto) Urine RBC (Auto) U Hyaline Cast (Auto) U Epithel Cells (Auto) Urine Bacteria (Auto) Digoxin 0.7 L Lyme Disease IgG Ab Lyme Disease IgM Ab COVID-19 Eval Order SARS-CoV-2, RNA, NAAT 09/20/20 09/20/20 09/20/20 08:12 08:12 08:12 WBC RBC Hgb Hct MCV MCH MCHC RDW Std Deviation RDW Coeff of Jeanette Plt Count MPV Immature Gran % (Auto) Neut % (Auto) Lymph % (Auto) [place] % (Auto) Eos % (Auto) Baso % (Auto) Neut # (Auto) Lymph # (Auto) [place] # (Auto) Eos # (Auto) Baso # (Auto) Immature Gran # (Auto) ESR 10 Sodium Potassium Chloride Carbon Dioxide Anion Gap BUN Creatinine Est Cr Clr Drug Dosing Est GFR ( Amer) Est GFR (Non-Af Amer) BUN/Creatinine Ratio Glucose POC Glucose Estimat Average Glucose Hemoglobin A1c Calcium Magnesium Total Bilirubin AST ALT Alkaline Phosphatase Total Creatine Kinase Troponin I Total Protein Albumin Globulin Albumin/Globulin Ratio Vitamin B12 405 TSH Urine Color Urine Appearance Urine pH Ur Specific [place] Urine Protein Urine Glucose (UA) Urine Ketones Urine Blood Urine Nitrite Urine Bilirubin Urine Urobilinogen Ur Leukocyte Esterase Urine WBC (Auto) Urine RBC (Auto) U Hyaline Cast (Auto) U Epithel Cells (Auto) Urine Bacteria (Auto) Digoxin Lyme Disease IgG Ab Negative Lyme Disease IgM Ab Negative COVID-19 Eval Order SARS-CoV-2, RNA, NAAT 09/20/20 09/20/20 09/20/20 08:12 08:12 12:09 WBC 8.27 RBC 5.13 Hgb 15.3 Hct 44.0 MCV 85.8 MCH 29.8 MCHC 34.8 RDW Std Deviation 43.4 RDW Coeff of Jeanette 13.8 Plt Count 282 MPV 10.3 Immature Gran % (Auto) Neut % (Auto) Lymph % (Auto) [place] % (Auto) Eos % (Auto) Baso % (Auto) Neut # (Auto) Lymph # (Auto) [place] # (Auto) Eos # (Auto) Baso # (Auto) Immature Gran # (Auto) ESR Sodium Potassium Chloride Carbon Dioxide Anion Gap BUN Creatinine Est Cr Clr Drug Dosing Est GFR ( Amer) Est GFR (Non-Af Amer) BUN/Creatinine Ratio Glucose POC Glucose 112 H Estimat Average Glucose Hemoglobin A1c Calcium Magnesium Total Bilirubin AST ALT Alkaline Phosphatase Total Creatine Kinase 79 Troponin I Total Protein Albumin Globulin Albumin/Globulin Ratio Vitamin B12 TSH Urine Color Urine Appearance Urine pH Ur Specific [place] Urine Protein Urine Glucose (UA) Urine Ketones Urine Blood Urine Nitrite Urine Bilirubin Urine Urobilinogen Ur Leukocyte Esterase Urine WBC (Auto) Urine RBC (Auto) U Hyaline Cast (Auto) U Epithel Cells (Auto) Urine Bacteria (Auto) Digoxin Lyme Disease IgG Ab Lyme Disease IgM Ab COVID-19 Eval Order SARS-CoV-2, RNA, NAAT
[2020-09-20] MEDS ORDERED: DIGOXIN 0.125 MG TAB PO SCH ×2 (16:00)
[2020-09-20] MEDS: DULoxetine HCL 60 MG CAP PO SCH (20:29)
[2020-09-20] MEDS: INSULIN GLARGINE SOLOSTAR 100 UNITS/ML 3 ML PEN SC SCH (20:30)
--- NOTE | 2020-09-20 21:16 | Billing Data ---
Date of Service September 20, 2020 Coding Level of Care Code 10877 Initial Inpt Care Lvl 2
[2020-09-20] MEDS ORDERED: ENOXAPARIN INJ 40 MG/0.4 ML SYR SQ SCH (22:00)
--- NOTE | 2020-09-20 22:58 | Magnetic Resonance Report ---
MRI OF THE THORACIC SPINE WITHOUT IV CONTRAST CLINICAL HISTORY: Lower extremity weakness. COMPARISON STUDY: Radiographs of the thoracolumbar spine dated 12/10/2015. MRI of the thoracic spine d ated 02/12/2014. TECHNIQUE: MRI of the thoracic spine is performed utilizing various T1 and T2-weighted sequences in t he axial and sagittal planes. IV contrast was not administered for this examination. The examination is compromised by motion artifact. FINDINGS: Marrow signal intensity is heterogeneous. There is postoperative change from laminectomy an d posterior fusion seen at the thoracolumbar junction extending from T12 into the lumbar spine. There is complete bony incorporation at the fused levels. Anterior osteophytes are seen throughout. The re maining spinous processes appear intact. No destructive bony lesion is seen. Chronic degenerative end plate change is seen at several levels with endplate edema noted at T1-T2, T8-T9, and T10-T11. Degene rative disc desiccation and loss of height is seen throughout the thoracic spine. Advanced loss of he ight is seen at the cervicothoracic junction at C6-C7, C7-T1, T1-T2, and T2-T3. There is multilevel a cquired compromise of the central canal at these levels. This is at least moderate at T1-T2 and T2-T3 where there is effacement of the ventral cord. There are small posterior disc bulges at T8-T9 and T9 -T10. Left lateral disc bulge at T8-T9 likely contributes to moderate to severe left-sided neural for aminal stenosis at this level. There is a posterior disc bulge eccentric to the left at T10-T11. This causes moderate to severe central canal stenosis and impinges on the left aspect of the ventral cord . This is best seen on axial image #34, and also likely contributes to severe left-sided neural michell inal stenosis at this level. There is at least mild central canal stenosis at T11-T12 secondary to a posterior disc bulge. The thoracic spinal cord is normal in morphology. A punctate focus of myelomala christi is seen at T8 on sagittal T2 image #9. There is fatty atrophy of the paraspinous musculature. The lung parenchyma is grossly unremarkable but not well evaluated by MRI. No pleural effusion is seen. IMPRESSION: 1. There is multilevel spondylotic change of the thoracic spine. 2. There is moderate central canal stenosis in the upper thoracic region at T1-T2 and T2-T3. 3. There is moderate to severe central canal stenosis at T10-T11, as well as severe left-sided neural foraminal narrowing at this level. 4. There is likely severe left-sided neural foraminal stenosis at T8-T9. 5. Degenerative disc disease as above with associated endplate edema. 6. No destructive bony lesion is identified. 7. Postoperative change from spinal fusion is noted at the thoracolumbar junction. Dictated: 09/20/2020 9:25 PM Transcribed: 09/20/2020 10:52 PM Rehana [id number] [facility] Electronically signed by: Kunal Funez M.D. 09/20/2020 10:56 PM
[2020-09-20] MEDS: hydrALAZINE HCL 20 MG/ML VIAL IV PRN (23:59)
[2020-09-21] MEDS: SENSIPAR~ORDER AWAITING ACTION SCH ×4 (01:23→23:41)
[2020-09-21] MEDS: ACETAMINOPHEN 500 MG TAB PO SCH (05:28)
[2020-09-21] MEDS: LEVOTHYROXINE SODIUM 137 MCG TABLET PO SCH (05:28)
[2020-09-21] MEDS: hydrALAZINE HCL 20 MG/ML VIAL IV PRN (05:28)
[2020-09-21 05:51] LABS: Basophils # (auto) 0.03 K/uL (0-0.2); Basophils % (auto) 0.4 %; Eosinophils # (auto) 0.22 K/uL (0-0.5); Eosinophils % (auto) 3.2 %; Hematocrit (blood only) 46.4 % (37-47); Hemoglobin 15.6 g/dL (12.0-16.0); Immature Granulocytes # (auto) 0.02 K/uL (0.00-0.02); Immature Granulocytes % (auto) 0.3 %; Lymphocytes % (auto) 23.5 %; Mean Corpuscular Hemoglobin 29.2 pg (25-34); Mean Corpuscular Hgb Conc 33.6 g/dL (32-36); Mean Corpuscular Volume 86.9 fL (80-100); Mean Platelet Volume 9.8 fL (7.4-10.4); Monocytes # (auto) 0.83 K/uL (0.11-0.59); Monocytes % (auto) 12.2 %; Neutrophils # (auto) 4.11 K/uL (1.4-6.5); Neutrophils % (auto) 60.4 %; Platelet Count 240 K/uL (130-400); RDW Coefficient of Variation 13.9 % (11.5-14.5); RDW Standard Deviation 43.9 fL (36.4-46.3); Red Blood Count 5.34 M/uL (4.2-5.4); White Blood Count 6.81 K/uL (4.8-10.8)
[2020-09-21 06:20] LABS: Albumin Level 3.5 gm/dl (3.4-5.0); Bilirubin,Total 0.5 mg/dl (0.2-1); Creatinine Clr Calc Pharmacy 62.8 ml/min; Est GFR (African American) 65.9; Est GFR (Non-African American) 56.8; Potassium 3.7 mmol/L (3.5-5.1)
[2020-09-21 06:22] LABS: Globulin 3.6 gm/dl (2.5-4.0); Total Protein 7.1 gm/dl (6.4-8.2)
--- NOTE | 2020-09-21 06:52 | Communication Note ---
Date of Service: September 21, 2020 I was alerted by nursing at approximately 6:30 AM that the patient was experiencing chest pain. Nursing obtain EKG which I personally reviewed and demonstrated no significant differences from the prior EKG, specifically there were no ST elevations. I evaluated the patient, and was able to reproduce her chest pain on physical exam by palpating the left side of her chest where she endorsed the greatest pain. When I asked her if the pain was identical to the pain she was experiencing she stated yes. She stated her symptoms were not exacerbated by deep breaths, exertion, there is no nausea, no funny feelings down her left arm. She has no prior history of PR. Put in for stat troponins, I suspect her pain is likely musculoskeletal in nature. -Follow-up troponins -Consider repeat EKG -Follow-up cardiology recommendations Resident Activity Tracking Resident Involvement: Resident Care Provided Care Provided: Adult Hospital Medicine
--- NOTE | 2020-09-21 08:08 | Hospitalist Progress Note ---
Date of Service September 21, 2020 Assessment & Plan (1) Bilateral leg weakness: * Most likely secondary to deconditioning however Lumbar Spine CT w/o contrast with some loosening hardware at L1-L5 and will consult Dr. Mederos * --> MRI with mod central canal stenosis upper thoracic region T1-T2 and T-T3, mod-severe central canal stenossi T10-T11 as well as severe left sided neural foraminal narrowing, severe left sided neural foraminal stenossi at T8-T9 * --> Patient would like to avoid surgery if possible and we are pursuing rehab, however will await input from Dr. Mederos based on these MRI findings * Xray Left knee with small effusion without acute fracture * Head CT without acute hemorrhage * ESR wnl at 10 * UA without evidence of infection * Lyme negative * CK wnl * B12 wnl 405 * PT/OT evals pending -- patient agreeable to rehab at d/c if needed * Placed on NSS @ 80cc/hr for some dehydration and lack of oral intake --> DISCONTINUED today * WBC without elevation * Afebrile but did report low grade temp 99F ACTUARIAL TRAINEE * Pain control 60 mg duloxetine, Tylenol 1 g every 8, Lyrica 100 mg 3 times daily, * Continue inpatient stay * Labs in AM Paroxysmal afib/Bradycardia * History of paroxysmal afib with cardioversions and had been in SR but unsure on how long she has been in afib --> in ER several weeks ago for weakness and EKG at that time in afib- could have been longer based on length of time symptoms have been reported * Suspect some of her weakness from this * Patient moved to telemetry 09/20 * Cardiology consulted == Dr Harden. Appreciate assistance/recommendations * ECHO with mod LVH, no wma, EF 65-70%. Mild aortic sclerosis without stenosis, LA severely dilated, trace AI * Dig low at 0.7 -- discontinued * Discontinued Tikosyn * Considerations for decreasing her metoprolol and per Dr Harden, amlodipine increased to 2.5mg BID and added hydralazine PO TID for better BP control, currently 173/99 and had reported headache (also drinking caffeine this AM) * HRs have been better but was dipping into the 30s and 40s overnight and into this morning (she also reported dropping to the 30s during conversation 09/20) * Did report episode of CP this AM. EKG with IVCD.Underlying conduction system disease on past EKGs as well demonstrating bifascicular and trifascicular heart block * Troponin negative * Aiming for rate control rather than rhythm given history of cardioversions * Continue to monitor on telemetry and adjustments of medications per cardiology Fall * Lumbar spine CT without contrast showing posterior interbody estrada and screw fusion at L1-L5 with some findings suggestive of hardware loosening * Dr Mederos consulted as above * CT Head negative * PT/OT with recs for Rehab. CM following * Consider outpatient EMG testing? Hypercalcemia * hx of and had elevated Ca 10.3 on admission with normal albumin * Given IVF and repeat Ca 10.0 * Deferred on parathyroidectomy outpatient and wanted continued monitoring * MRI previously without evidence fo adenoma * Continue home medications and IVF as above, no discontinued Controlled type 2 diabetes mellitus with neurologic complication, with long-term current use of insulin: * A1c 6.3 * Continue Lantus 8 units nightly * Sliding scale insulin for mealtime * Hold Metformin on outpatient p.o. medications * BSGs acceptable Hypothyroidism * Continue levothyroxine 137mcg daily * TSH wnl HTN * Chronic with HLD * Continue metoprolol 75mg BID , amlodipine as above increased to 2.5mg BID, losartan 100mg daily fenofibrate * BP elevated today --> in addition to her amlodipine being increased, cardiology also added hydralazine 10mg PO TID -- BP currently 173/99 and did get two doses of hydralazine since evening 09/20 * Continue to monitor CKD III * Kidney function stable * Monitor BMP Dispo: from home. PT/OT pending likely some rehab at discharge continued inpatient stay on telemetry for adjustment of medications and continued input from Dr. Mederos regarding MRI Admission and Anticipated Discharge Date Admission Date: September 20, 2020 Subjective Patient evaluated this morning. Had episode of chest pain earlier this morning. Trop negative. EKG stable bradycardia no ST changes. No further chest pain but does have a headache. Typically drinks caffeine and is having coffee at the moment. Headache to occipital region, nontender to palpation and no visual changes. Discussed tyelnol and will make prn. Attempting better BP control but cardio making adjustments and will use hydralazine in the meantime. Not much of an appetite due to headache but drinking fluids. No vomiting. She does note that about an hour ago she found out that her daughter's boyfriend is an MONITORING MANAGER got COVID and just from this. Review of Systems Review of Systems: All systems reviewed & are unremarkable except as noted in HPI & below Physical Exam Constitutional: well developed, well nourished, + obese, cooperative and comfortable; no acute distress Eyes: + anicteric sclerae and PERRL ENMT: mmm Neck: normal visual inspection and trachea midline Respiratory: normal respiratory effort, lungs clear to auscultation Cardiovascular: Rate/Rhythm: + bradycardic and + irregularly irregular Vessels: no JVD Extremities: no edema Gastrointestinal (Abdomen): Inspection/Auscultation: normal bowel sounds; + abdomen abnormal to inspection (periumbilical hernia, reducible non-tender) Percussion/Palpation: abdomen soft; no guarding and abdomen not rigid Musculoskeletal: good strength with hip flexion/extension decreased plantar/dorsiflexion 4/5 to LLE compared to the right (improved) NVI pulses palpable bilaterally calves non-tender to palpation Neurologic: PERRL, EOMI, accommodation nl, no face palsy, no dysarthria Psychiatric: A+Ox3, euthymic affect Lymphatic: no cervical or axillary lymphadenopathy Results & Data Results & Data ([facility]) Vital Signs (Past 12 Hours) Vital Signs Temp Pulse Pulse Resp BP BP Pulse Ox 09/21/20 07:25 36.3 C L 60 18 170/92 H 172/79 H 92 09/21/20 05:54 168/99 H 09/21/20 05:29 56 L 185/105 H 09/21/20 04:31 57 L 184/76 H 09/21/20 03:53 36.5 C 67 24 209/110 H 93 09/20/20 23:12 36.5 C 69 20 192/85 H 92 Laboratory Results 09/21/20 09/21/20 09/21/20 Range/Units 07:24 05:33 05:33 WBC (4.8-10.8) K/uL RBC (4.2-5.4) M/uL Hgb (12.0-16.0) g/dL Hct (37-47) % MCV (80-100) fL MCH (25-34) pg MCHC (32-36) g/dL RDW Std Deviation (36.4-46.3) fL RDW Coeff of Jeanette (11.5-14.5) % Plt Count (130-400) K/uL MPV (7.4-10.4) fL Immature Gran % (Auto) % Neut % (Auto) % Lymph % (Auto) % Bryan % (Auto) % Eos % (Auto) % Baso % (Auto) % Neut # (Auto) (1.4-6.5) K/uL Lymph # (Auto) (1.2-3.4) K/uL Bryan # (Auto) (0.11-0.59) K/uL Eos # (Auto) (0-0.5) K/uL Baso # (Auto) (0-0.2) K/uL Immature Gran # (Auto) (0.00-0.02) K/uL ESR (0-21) mm/hr Sodium 143 (136-145) mmol/L Potassium 3.7 (3.5-5.1) mmol/L Chloride 112 H (98-107) mmol/L Carbon Dioxide 26 (21-32) mmol/L Anion Gap 5.0 (3-11) BUN 21 H (7-18) mg/dl Creatinine 0.98 (0.6-1.2) mg/dl Est Cr Clr Drug Dosing 62.8 ml/min Est GFR ( Amer) 65.9 Est GFR (Non-Af Amer) 56.8 BUN/Creatinine Ratio 21.0 H (10-20) Glucose 128 H (70-99) mg/dl POC Glucose 154 H (70-99) mg/dl Calcium 10.0 (8.5-10.1) mg/dl Total Bilirubin 0.5 (0.2-1) mg/dl AST 10 L (15-37) U/L ALT 23 (12-78) U/L Alkaline Phosphatase 57 (45-117) U/L Total Creatine Kinase (26-192) U/L Troponin I < 0.015 (0-0.045) ng/ml Total Protein 7.1 (6.4-8.2) gm/dl Albumin 3.5 (3.4-5.0) gm/dl Globulin 3.6 (2.5-4.0) gm/dl Albumin/Globulin Ratio 1.0 (0.9-2) Vitamin B12 (193-986) pg/ml Lyme Disease IgG Ab (Negative) Lyme Disease IgM Ab (Negative) 09/21/20 09/20/20 09/20/20 Range/Units 05:33 20:15 17:01 WBC 6.81 (4.8-10.8) K/uL RBC 5.34 (4.2-5.4) M/uL Hgb 15.6 (12.0-16.0) g/dL Hct 46.4 (37-47) % MCV 86.9 (80-100) fL MCH 29.2 (25-34) pg MCHC 33.6 (32-36) g/dL RDW Std Deviation 43.9 (36.4-46.3) fL RDW Coeff of Jeanette 13.9 (11.5-14.5) % Plt Count 240 (130-400) K/uL MPV 9.8 (7.4-10.4) fL Immature Gran % (Auto) 0.3 % Neut % (Auto) 60.4 % Lymph % (Auto) 23.5 % Bryan % (Auto) 12.2 % Eos % (Auto) 3.2 % Baso % (Auto) 0.4 % Neut # (Auto) 4.11 (1.4-6.5) K/uL Lymph # (Auto) 1.60 (1.2-3.4) K/uL Bryan # (Auto) 0.83 H (0.11-0.59) K/uL Eos # (Auto) 0.22 (0-0.5) K/uL Baso # (Auto) 0.03 (0-0.2) K/uL Immature Gran # (Auto) 0.02 (0.00-0.02) K/uL ESR (0-21) mm/hr Sodium (136-145) mmol/L Potassium (3.5-5.1) mmol/L Chloride (98-107) mmol/L Carbon Dioxide (21-32) mmol/L Anion Gap (3-11) BUN (7-18) mg/dl Creatinine (0.6-1.2) mg/dl Est Cr Clr Drug Dosing ml/min Est GFR ( Amer) Est GFR (Non-Af Amer) BUN/Creatinine Ratio (10-20) Glucose (70-99) mg/dl POC Glucose 119 H 113 H (70-99) mg/dl Calcium (8.5-10.1) mg/dl Total Bilirubin (0.2-1) mg/dl AST (15-37) U/L ALT (12-78) U/L Alkaline Phosphatase (45-117) U/L Total Creatine Kinase (26-192) U/L Troponin I (0-0.045) ng/ml Total Protein (6.4-8.2) gm/dl Albumin (3.4-5.0) gm/dl Globulin (2.5-4.0) gm/dl Albumin/Globulin Ratio (0.9-2) Vitamin B12 (193-986) pg/ml Lyme Disease IgG Ab (Negative) Lyme Disease IgM Ab (Negative) 09/20/20 09/20/20 09/20/20 Range/Units 12:09 08:12 08:12 WBC 8.27 (4.8-10.8) K/uL RBC 5.13 (4.2-5.4) M/uL Hgb 15.3 (12.0-16.0) g/dL Hct 44.0 (37-47) % MCV 85.8 (80-100) fL MCH 29.8 (25-34) pg MCHC 34.8 (32-36) g/dL RDW Std Deviation 43.4 (36.4-46.3) fL RDW Coeff of Jeanette 13.8 (11.5-14.5) % Plt Count 282 (130-400) K/uL MPV 10.3 (7.4-10.4) fL Immature Gran % (Auto) % Neut % (Auto) % Lymph % (Auto) % Bryan % (Auto) % Eos % (Auto) % Baso % (Auto) % Neut # (Auto) (1.4-6.5) K/uL Lymph # (Auto) (1.2-3.4) K/uL Bryan # (Auto) (0.11-0.59) K/uL Eos # (Auto) (0-0.5) K/uL Baso # (Auto) (0-0.2) K/uL Immature Gran # (Auto) (0.00-0.02) K/uL ESR (0-21) mm/hr Sodium (136-145) mmol/L Potassium (3.5-5.1) mmol/L Chloride (98-107) mmol/L Carbon Dioxide (21-32) mmol/L Anion Gap (3-11) BUN (7-18) mg/dl Creatinine (0.6-1.2) mg/dl Est Cr Clr Drug Dosing ml/min Est GFR ( Amer) Est GFR (Non-Af Amer) BUN/Creatinine Ratio (10-20) Glucose (70-99) mg/dl POC Glucose 112 H (70-99) mg/dl Calcium (8.5-10.1) mg/dl Total Bilirubin (0.2-1) mg/dl AST (15-37) U/L ALT (12-78) U/L Alkaline Phosphatase (45-117) U/L Total Creatine Kinase 79 (26-192) U/L Troponin I (0-0.045) ng/ml Total Protein (6.4-8.2) gm/dl Albumin (3.4-5.0) gm/dl Globulin (2.5-4.0) gm/dl Albumin/Globulin Ratio (0.9-2) Vitamin B12 (193-986) pg/ml Lyme Disease IgG Ab (Negative) Lyme Disease IgM Ab (Negative) 09/20/20 09/20/20 09/20/20 Range/Units 08:12 08:12 08:12 WBC (4.8-10.8) K/uL RBC (4.2-5.4) M/uL Hgb (12.0-16.0) g/dL Hct (37-47) % MCV (80-100) fL MCH (25-34) pg MCHC (32-36) g/dL RDW Std Deviation (36.4-46.3) fL RDW Coeff of Jeanette (11.5-14.5) % Plt Count (130-400) K/uL MPV (7.4-10.4) fL Immature Gran % (Auto) % Neut % (Auto) % Lymph % (Auto) % Bryan % (Auto) % Eos % (Auto) % Baso % (Auto) % Neut # (Auto) (1.4-6.5) K/uL Lymph # (Auto) (1.2-3.4) K/uL Bryan # (Auto) (0.11-0.59) K/uL Eos # (Auto) (0-0.5) K/uL Baso # (Auto) (0-0.2) K/uL Immature Gran # (Auto) (0.00-0.02) K/uL ESR 10 (0-21) mm/hr Sodium (136-145) mmol/L Potassium (3.5-5.1) mmol/L Chloride (98-107) mmol/L Carbon Dioxide (21-32) mmol/L Anion Gap (3-11) BUN (7-18) mg/dl Creatinine (0.6-1.2) mg/dl Est Cr Clr Drug Dosing ml/min Est GFR ( Amer) Est GFR (Non-Af Amer) BUN/Creatinine Ratio (10-20) Glucose (70-99) mg/dl POC Glucose (70-99) mg/dl Calcium (8.5-10.1) mg/dl Total Bilirubin (0.2-1) mg/dl AST (15-37) U/L ALT (12-78) U/L Alkaline Phosphatase (45-117) U/L Total Creatine Kinase (26-192) U/L Troponin I (0-0.045) ng/ml Total Protein (6.4-8.2) gm/dl Albumin (3.4-5.0) gm/dl Globulin (2.5-4.0) gm/dl Albumin/Globulin Ratio (0.9-2) Vitamin B12 405 (193-986) pg/ml Lyme Disease IgG Ab Negative (Negative) Lyme Disease IgM Ab Negative (Negative) 09/20/20 Range/Units 08:10 WBC (4.8-10.8) K/uL RBC (4.2-5.4) M/uL Hgb (12.0-16.0) g/dL Hct (37-47) % MCV (80-100) fL MCH (25-34) pg MCHC (32-36) g/dL RDW Std Deviation (36.4-46.3) fL RDW Coeff of Jeanette (11.5-14.5) % Plt Count (130-400) K/uL MPV (7.4-10.4) fL Immature Gran % (Auto) % Neut % (Auto) % Lymph % (Auto) % Bryan % (Auto) % Eos % (Auto) % Baso % (Auto) % Neut # (Auto) (1.4-6.5) K/uL Lymph # (Auto) (1.2-3.4) K/uL Bryan # (Auto) (0.11-0.59) K/uL Eos # (Auto) (0-0.5) K/uL Baso # (Auto) (0-0.2) K/uL Immature Gran # (Auto) (0.00-0.02) K/uL ESR (0-21) mm/hr Sodium (136-145) mmol/L Potassium (3.5-5.1) mmol/L Chloride (98-107) mmol/L Carbon Dioxide (21-32) mmol/L Anion Gap (3-11) BUN (7-18) mg/dl Creatinine (0.6-1.2) mg/dl Est Cr Clr Drug Dosing ml/min Est GFR ( Amer) Est GFR (Non-Af Amer) BUN/Creatinine Ratio (10-20) Glucose (70-99) mg/dl POC Glucose 123 H (70-99) mg/dl Calcium (8.5-10.1) mg/dl Total Bilirubin (0.2-1) mg/dl AST (15-37) U/L ALT (12-78) U/L Alkaline Phosphatase (45-117) U/L Total Creatine Kinase (26-192) U/L Troponin I (0-0.045) ng/ml Total Protein (6.4-8.2) gm/dl Albumin (3.4-5.0) gm/dl Globulin (2.5-4.0) gm/dl Albumin/Globulin Ratio (0.9-2) Vitamin B12 (193-986) pg/ml Lyme Disease IgG Ab (Negative) Lyme Disease IgM Ab (Negative) Diagnostic Findings MRI Thoracic Spine w/o IMPRESSION: 1. There is multilevel spondylotic change of the thoracic spine. 2. There is moderate central canal stenosis in the upper thoracic region at T1- T2 and T2-T3. 3. There is moderate to severe central canal stenosis at T10-T11, as well as severe left-sided neural foraminal narrowing at this level. 4. There is likely severe left-sided neural foraminal stenosis at T8-T9. 5. Degenerative disc disease as above with associated endplate edema. 6. No destructive bony lesion is identified. 7. Postoperative change from spinal fusion is noted at the thoracolumbar junction. ECHO The left ventricle is normal in size There is moderate concentric LVH The left ventricular wall motion is normal Ejection Fraction 65-70% Aortic valve sclerosis mild, without significant aortic valvular stenosis The left atrium is severely dilated Trace aortic regurgitation PG Care Time/CCT Total # of Minutes Spent Total Time Spent with Patient: Total time spent is greater than 50% in coordination of care (as documented) at patient's floor/unit and/or counseling patient: Coding Level of Care Code 20337 Subseq Hosp Care Lvl 3 Diagnoses Bilateral leg weakness R29.898
[2020-09-21] MEDS: POLYETHYLENE (MIRALAX) 17 GM PACK PO SCH (08:14)
[2020-09-21] MEDS: CYCLOBENZAPRINE HCL 5 MG TAB PO SCH (08:16)
[2020-09-21] MEDS: FENOFIBRATE NANOCRYSTALLIZED 145 MG TABLET PO SCH (08:16)
[2020-09-21] MEDS: PREGABALIN 100 MG CAP PO SCH ×3 (08:16→21:02)
[2020-09-21] MEDS: METOPROLOL TARTRATE 25 MG TAB PO SCH ×2 (08:16→20:57)
[2020-09-21] MEDS: LOSARTAN POTASSIUM 50 MG TAB PO SCH (08:16)
[2020-09-21] MEDS: PANTOprazole 40 MG TAB PO SCH (08:16)
[2020-09-21] MEDS: RIVAROXABAN 15 MG TAB PO SCH (08:17)
[2020-09-21] MEDS: INSULIN ASPART 100 UNITS/ML 3 ML PEN SC SCH ×4 (08:18→20:59)
[2020-09-21] MEDS ORDERED: PROCHLORPERAZINE MALEATE 5 MG TAB PO ONE (10:21)
--- NOTE | 2020-09-21 10:44 | Cardiology Progress Note ---
Date of Service September 21, 2020 Assessment & Plan (1) Atrial fibrillation with slow ventricular response: Patient is a 74-year-old female with complex constellation of underlying medical issues as noted in HPI. She has a history of longstanding paroxysmal atrial fibrillation previously controlled in sinus rhythm with antiarrhythmic therapy/Tikosyn. In the past she has been significantly symptomatic when in atrial fibrillation due to tachyarrhythmias. Current complaints of weakness and fatigue are association with newly observed (09/09/2020) recurrence of her atrial fibrillation though with slow ventricular response rate. This may not be the ultimate source of complaints but may easily be contributing. Underlying conduction system disease is present with past EKGs demonstrating bifascicular and trifascicular heart block. Recommendations: I reviewed findings in detail with patient and her . Echocardiogram reviewed this morning demonstrates normal to hyperdynamic LV function significant left atrial enlargement. Heart rates improving since discontinuation of digoxin and Tikosyn. Expect poor likelihood of maintaining sinus rhythm and would likely require pacemaker in order to do so given progressive conduction system disease and bradycardia. We will continue rate control therapies. Continue metoprolol at current dosing though may need to reduce evening dose. We will treat hypertension increasing amlodipine to 2.5 mg twice per day, adding oral hydralazine at 10 mg 3 times daily. Suspect patient will benefit from low- dose diuretic intermittently in the future. Agree with discontinuing IV fluids (2) Paroxysmal atrial fibrillation: (3) Bilateral leg weakness: (4) Sleep apnea: (5) Hyperparathyroidism: (6) Bifascicular bundle branch block: Admission and Anticipated Discharge Date Admission Date: September 20, 2020 Subjective Patient was seen and examined, chart, medications, telemetry reviewed. Complains of a headache this morning. Overall heart rates improving. No chest pains currently. No fevers or chills. Patient remains in atrial fibrillation on telemetry Review of Systems Review of Systems: All systems reviewed & are unremarkable except as noted in HPI & below Physical Exam Constitutional: + obese; no acute distress ENMT: external ear and nose normal, oropharynx normal Neck: trachea midline, no thyromegaly + thick neck Respiratory: normal respiratory effort, lungs clear to auscultation Cardiovascular: Rate/Rhythm: + bradycardic and + irregularly irregular Heart Sounds: normal S1 and normal S2; no gallop and no murmur Palpation: normal PMI Vessels: normal carotid upstroke and radial pulses present; no JVD and no carotid bruit Extremities: no edema Gastrointestinal (Abdomen): normal bowel sounds, soft, nontender, no hepatosplenomegaly Musculoskeletal: no cyanosis or clubbing, extremities motor strength 5/5 Skin: no rashes, warm and dry Neurologic: PERRL, EOMI, accommodation nl, no face palsy, no dysarthria Psychiatric: A+Ox3, euthymic affect Results & Data ([facility]) Vital Signs (Past 12 Hours) Vital Signs Temp Pulse Pulse Pulse Resp BP BP 09/21/20 08:55 57 L 09/21/20 07:25 36.3 C L 60 18 170/92 H 172/79 H 09/21/20 05:54 168/99 H 09/21/20 05:29 56 L 185/105 H 09/21/20 04:31 57 L 184/76 H 09/21/20 03:53 36.5 C 67 24 209/110 H 09/20/20 23:12 36.5 C 69 20 192/85 H Pulse Ox 09/21/20 08:55 09/21/20 07:25 92 09/21/20 05:54 09/21/20 05:29 09/21/20 04:31 09/21/20 03:53 93 09/20/20 23:12 92 Laboratory Results Laboratory Results - last 24 hr 09/20/20 09/20/20 09/20/20 12:09 17:01 20:15 WBC RBC Hgb Hct MCV MCH MCHC RDW Std Deviation RDW Coeff of Jeanette Plt Count MPV Immature Gran % (Auto) Neut % (Auto) Lymph % (Auto) [place] % (Auto) Eos % (Auto) Baso % (Auto) Neut # (Auto) Lymph # (Auto) [place] # (Auto) Eos # (Auto) Baso # (Auto) Immature Gran # (Auto) Sodium Potassium Chloride Carbon Dioxide Anion Gap BUN Creatinine Est Cr Clr Drug Dosing Est GFR ( Amer) Est GFR (Non-Af Amer) BUN/Creatinine Ratio Glucose POC Glucose 112 H 113 H 119 H Calcium Total Bilirubin AST ALT Alkaline Phosphatase Troponin I Total Protein Albumin Globulin Albumin/Globulin Ratio 09/21/20 09/21/20 09/21/20 05:33 05:33 05:33 WBC 6.81 RBC 5.34 Hgb 15.6 Hct 46.4 MCV 86.9 MCH 29.2 MCHC 33.6 RDW Std Deviation 43.9 RDW Coeff of Jeanette 13.9 Plt Count 240 MPV 9.8 Immature Gran % (Auto) 0.3 Neut % (Auto) 60.4 Lymph % (Auto) 23.5 [place] % (Auto) 12.2 Eos % (Auto) 3.2 Baso % (Auto) 0.4 Neut # (Auto) 4.11 Lymph # (Auto) 1.60 [place] # (Auto) 0.83 H Eos # (Auto) 0.22 Baso # (Auto) 0.03 Immature Gran # (Auto) 0.02 Sodium 143 Potassium 3.7 Chloride 112 H Carbon Dioxide 26 Anion Gap 5.0 BUN 21 H Creatinine 0.98 Est Cr Clr Drug Dosing 62.8 Est GFR ( Amer) 65.9 Est GFR (Non-Af Amer) 56.8 BUN/Creatinine Ratio 21.0 H Glucose 128 H POC Glucose Calcium 10.0 Total Bilirubin 0.5 AST 10 L ALT 23 Alkaline Phosphatase 57 Troponin I < 0.015 Total Protein 7.1 Albumin 3.5 Globulin 3.6 Albumin/Globulin Ratio 1.0 09/21/20 09/21/20 07:24 11:21 WBC RBC Hgb Hct MCV MCH MCHC RDW Std Deviation RDW Coeff of Jeanette Plt Count MPV Immature Gran % (Auto) Neut % (Auto) Lymph % (Auto) [place] % (Auto) Eos % (Auto) Baso % (Auto) Neut # (Auto) Lymph # (Auto) [place] # (Auto) Eos # (Auto) Baso # (Auto) Immature Gran # (Auto) Sodium Potassium Chloride Carbon Dioxide Anion Gap BUN Creatinine Est Cr Clr Drug Dosing Est GFR ( Amer) Est GFR (Non-Af Amer) BUN/Creatinine Ratio Glucose POC Glucose 154 H 149 H Calcium Total Bilirubin AST ALT Alkaline Phosphatase Troponin I Total Protein Albumin Globulin Albumin/Globulin Ratio
[2020-09-21] MEDS: ACETAMINOPHEN 500 MG TAB PO PRN (12:10)
--- NOTE | 2020-09-21 12:14 | Electrocardiogram Report ---
Test Reason : Blood Pressure : / mmHG Vent. Rate : 068 BPM Atrial Rate : 068 BPM P-R Int : 000 ms QRS Dur : 128 ms QT Int : 454 ms P-R-T Axes : 000 -64 009 degrees QTc Int : 482 ms Atrial fibrillation Left axis deviation Non-specific intra-ventricular conduction block Cannot rule out Inferior infarct , age undetermined Abnormal ECG When compared with ECG of 19-SEP-2020 19:15, QT has lengthened Confirmed by Vamsi Powers ([id number]) on 09/21/2020 12:14:09 PM Referred By: REFERRED SELF Confirmed By:Vamsi Powers
[2020-09-21] MEDS: amLODIPine BESYLATE 5 MG TAB PO SCH ×2 (14:23→20:54)
[2020-09-21] MEDS: hydrALAZINE 10 MG TAB PO SCH ×2 (14:23→20:57)
[2020-09-21] MEDS: DULoxetine HCL 60 MG CAP PO SCH (20:55)
[2020-09-21] MEDS: CHLORZOXAZONE 500 MG TAB PO SCH (20:58)
[2020-09-21] MEDS: INSULIN GLARGINE SOLOSTAR 100 UNITS/ML 3 ML PEN SC SCH (21:00)
[2020-09-22] MEDS ORDERED: hydrALAZINE HCL 20 MG/ML VIAL IV ONE (04:11)
[2020-09-22] MEDS: LEVOTHYROXINE SODIUM 137 MCG TABLET PO SCH (06:34)
[2020-09-22] MEDS: ACETAMINOPHEN 500 MG TAB PO PRN ×2 (06:37→23:30)
[2020-09-22 07:03] LABS: BUN Creatinine Ratio 24.2 (10-20); Creatinine Clr Calc Pharmacy 52.6 ml/min; Est GFR (African American) 53.2; Est GFR (Non-African American) 45.9
[2020-09-22] MEDS: SENSIPAR~ORDER AWAITING ACTION SCH ×3 (07:36→23:19)
--- NOTE | 2020-09-22 07:59 | Hospitalist Progress Note ---
Date of Service September 22, 2020 Assessment & Plan (1) Bilateral leg weakness: * Most likely secondary to deconditioning however Lumbar Spine CT w/o contrast with some loosening hardware at L1-L5 and will consult Dr. Mederos * --> MRI with mod central canal stenosis upper thoracic region T1-T2 and T-T3, mod-severe central canal stenossi T10-T11 as well as severe left sided neural foraminal narrowing, severe left sided neural foraminal stenossi at T8-T9 * --> Patient would like to avoid surgery if possible and we are pursuing rehab, however will await input from Dr. Mederos based on these MRI findings * Xray Left knee with small effusion without acute fracture * Head CT without acute hemorrhage * ESR wnl at 10 * UA without evidence of infection * Lyme negative * CK wnl * B12 wnl 405 * PT/OT evals with recs for rehab * Placed on NSS @ 80cc/hr for some dehydration and lack of oral intake --> DISCONTINUED 09/21 for slight wheezing on exam (resolved) * WBC without elevation * Afebrile but did report low grade temp 99F [employer] * Pain control 60 mg duloxetine, Tylenol 1 g every 8, Lyrica 100 mg 3 times abhay y, * Continue inpatient stay while adjusting cardiac medications and awaiting rehab at [facility] -- beds next week pending auth Paroxysmal afib/Bradycardia * History of paroxysmal afib with cardioversions and had been in SR but unsure on how long she has been in afib --> in ER several weeks ago for weakness and EKG at that time in afib- could have been longer based on length of time symptoms have been reported * Suspect some of her weakness from this * Patient moved to telemetry 09/20 * Cardiology consulted == Dr Harden. Appreciate assistance/recommendations * ECHO with mod LVH, no wma, EF 65-70%. Mild aortic sclerosis without stenosis, LA severely dilated, trace AI * Dig low at 0.7 -- discontinued * Discontinued Tikosyn 09/21 * Considerations for decreasing her metoprolol and per Dr Harden, amlodipine increased to 2.5mg BID and added hydralazine PO TID for better BP control, currently 173/99 and had reported headache (also drinking caffeine this AM) * --> Increase hydralazine to 10mg QID for now and will await further adjustments by cardiology today. BP 173/96 prior to increase Hydralazine and patient asymptomatic at this time * HRs have been better 50-70s in afib (she also reported dropping to the 30s at home during conversation 09/20) * Did report episode of CP AM of 09/21. EKG with IVCD.Underlying conduction system disease on past EKGs as well demonstrating bifascicular and trifascicular heart block * Troponin negative * Aiming for rate control rather than rhythm given history of cardioversions * Continue to monitor on telemetry and adjustments of medications per cardiology Fall * Lumbar spine CT without contrast showing posterior interbody estrada and screw fusion at L1-L5 with some findings suggestive of hardware loosening * Dr Mederos consulted as above - discussed with Dr. Mederos and would hold off on surgery at this time * CT Head negative * PT/OT with recs for Rehab. CM following * Consider outpatient EMG testing? Hypercalcemia * hx of and had elevated Ca 10.3 on admission with normal albumin * Given IVF and repeat Ca 10.0 * Deferred on parathyroidectomy outpatient and wanted continued monitoring * MRI previously without evidence fo adenoma * Continue home medications and IVF as above, now discontinued Controlled type 2 diabetes mellitus with neurologic complication, with long-term current use of insulin: * A1c 6.3 * Continue Lantus 8 units nightly * Sliding scale insulin for mealtime * Hold Metformin on outpatient p.o. medications * BSGs acceptable Hypothyroidism * Continue levothyroxine 137mcg daily * TSH wnl HTN * Chronic with HLD * Continue metoprolol 75mg BID , amlodipine as above increased to 2.5mg BID, losartan 100mg daily fenofibrate * BP continues to be elevated today --> in addition to her amlodipine being increased, cardiology also added hydralazine 10mg PO TID * Increased hydralazine to QID as above * Continue to monitor CKD III * Kidney function stable but slightly increased 1.17 -- encourage PO free water intake. * continuing losartan for now but consider holding in AM if Cr elevated * Monitor BMP Dispo: from home. PT/OT pending likely some rehab at discharge continued inpatient stay on telemetry for adjustment of medications and waiting for bed at [facility] next week pending auth Admission and Anticipated Discharge Date Admission Date: September 20, 2020 Subjective Patient evaluated this morning. Feeling much better than when she came in. Bit of a headache this morning and resolved with tylenol. Discussed elevated BP and increased hydralazine to QID until input/adjustments by Dr. Harden. HR improved to 50-70s. Discussed I spoke with Dr. Mederos and imaging with narrowing but doesn't feel this is her only issue currently. Discussed cardiac issues as well. He and patient would both like to hold off on surgery if possible and we are persuing rehab at discharge. If condition worsens could consider intervention in the future. No fever, chill, chest pain, palpitations, shortness of breath, abdominal pain, nausea or dysuria. Plans for [facility] at d/c for rehab. Review of Systems Review of Systems: All systems reviewed & are unremarkable except as noted in HPI & below Physical Exam Constitutional: well developed, well nourished, + obese, cooperative and comfortable; no acute distress Eyes: + anicteric sclerae and PERRL ENMT: slightly dry mm Neck: normal visual inspection and trachea midline Respiratory: normal respiratory effort, lungs clear to auscultation Cardiovascular: Rate/Rhythm: + bradycardic and + irregularly irregular Vessels: no JVD Extremities: no edema Gastrointestinal (Abdomen): Inspection/Auscultation: normal bowel sounds; + abdomen abnormal to inspection (periumbilical hernia, reducible non-tender) Percussion/Palpation: abdomen soft; no guarding and abdomen not rigid Musculoskeletal: no cyanosis or clubbing, extremities motor strength 5/5 Neurologic: PERRL, EOMI, accommodation nl, no face palsy, no dysarthria Psychiatric: A+Ox3, euthymic affect Lymphatic: no cervical or axillary lymphadenopathy Results & Data Results & Data ([facility]) Vital Signs (Past 12 Hours) Vital Signs Temp Pulse Pulse Resp BP BP Pulse Ox 09/22/20 07:30 36.5 C 55 L 18 173/96 H 93 09/22/20 07:18 54 L 09/22/20 05:03 185/96 H 09/22/20 04:00 37 C 55 L 18 180/82 H 94 09/21/20 23:33 36.9 C 58 L 18 161/87 H 93 09/21/20 20:51 36.6 C 68 18 159/80 H 95 Laboratory Results 09/22/20 09/22/20 09/22/20 Range/Units 07:30 07:08 05:52 Sodium 144 (136-145) mmol/L Potassium 3.6 (3.5-5.1) mmol/L Chloride 113 H (98-107) mmol/L Carbon Dioxide 24 (21-32) mmol/L Anion Gap 7.0 (3-11) BUN 28 H (7-18) mg/dl Creatinine 1.17 (0.6-1.2) mg/dl Est Cr Clr Drug Dosing 52.6 ml/min Est GFR ( Amer) 53.2 Est GFR (Non-Af Amer) 45.9 BUN/Creatinine Ratio 24.2 H (10-20) Glucose 118 H (70-99) mg/dl POC Glucose 116 H (70-99) mg/dl Calcium 10.0 (8.5-10.1) mg/dl Troponin I (0-0.045) ng/ml 09/21/20 09/21/20 09/21/20 Range/Units 20:05 16:33 11:21 Sodium (136-145) mmol/L Potassium (3.5-5.1) mmol/L Chloride (98-107) mmol/L Carbon Dioxide (21-32) mmol/L Anion Gap (3-11) BUN (7-18) mg/dl Creatinine (0.6-1.2) mg/dl Est Cr Clr Drug Dosing ml/min Est GFR ( Amer) Est GFR (Non-Af Amer) BUN/Creatinine Ratio (10-20) Glucose (70-99) mg/dl POC Glucose 116 H 114 H 149 H (70-99) mg/dl Calcium (8.5-10.1) mg/dl Troponin I (0-0.045) ng/ml 09/21/20 09/21/20 Range/Units 07:24 05:33 Sodium (136-145) mmol/L Potassium (3.5-5.1) mmol/L Chloride (98-107) mmol/L Carbon Dioxide (21-32) mmol/L Anion Gap (3-11) BUN (7-18) mg/dl Creatinine (0.6-1.2) mg/dl Est Cr Clr Drug Dosing ml/min Est GFR ( Amer) Est GFR (Non-Af Amer) BUN/Creatinine Ratio (10-20) Glucose (70-99) mg/dl POC Glucose 154 H (70-99) mg/dl Calcium (8.5-10.1) mg/dl Troponin I < 0.015 (0-0.045) ng/ml PG Care Time/CCT Total # of Minutes Spent Total Time Spent with Patient: Total time spent is greater than 50% in coordination of care (as documented) at patient's floor/unit and/or counseling patient: Coding Level of Care Code 47149 Subseq Hosp Care Lvl 2 Diagnoses Bilateral leg weakness R29.898
[2020-09-22] MEDS: INSULIN ASPART 100 UNITS/ML 3 ML PEN SC SCH ×4 (08:11→20:00)
[2020-09-22] MEDS: METOPROLOL TARTRATE 25 MG TAB PO SCH (08:12)
[2020-09-22] MEDS: CYCLOBENZAPRINE HCL 5 MG TAB PO SCH (08:12)
[2020-09-22] MEDS: amLODIPine BESYLATE 5 MG TAB PO SCH ×2 (08:12→20:01)
[2020-09-22] MEDS: PANTOprazole 40 MG TAB PO SCH (08:13)
[2020-09-22] MEDS: RIVAROXABAN 15 MG TAB PO SCH (08:13)
[2020-09-22] MEDS: LOSARTAN POTASSIUM 50 MG TAB PO SCH (08:13)
[2020-09-22] MEDS: FENOFIBRATE NANOCRYSTALLIZED 145 MG TABLET PO SCH (08:13)
[2020-09-22] MEDS: POLYETHYLENE (MIRALAX) 17 GM PACK PO SCH (08:14)
[2020-09-22] MEDS: PREGABALIN 100 MG CAP PO SCH ×3 (08:18→19:59)
[2020-09-22] MEDS ORDERED: hydrALAZINE 10 MG TAB PO SCH (09:00)
--- NOTE | 2020-09-22 10:47 | Orthopedic Progress Note ---
Date of Service September 22, 2020 Assessment & Plan (1) Bilateral leg weakness: Admission and Anticipated Discharge Date Admission Date: September 20, 2020 I had a discussion today with the patient regarding her most recent thoracic MRI. There is evidence of multilevel spinal stenosis and disc protrusion. I do not appreciate any severe cord compression. Nevertheless this could play a role in her lower extremity weakness. She is not myelopathic upon exam. There also may be significant heart contribution from her deconditioning and cardiac condition. She is not interested in surgical intervention. This is of course reasonable. We will attempt a course of rehabilitation as the mainstay of therapy at this time. Subjective Patient feeling somewhat better. Still notes significant weakness to lower extremities. Physical Exam Physical Exam: On exam she is in the chair at the bedside. Is reasonable plantar flexion dorsiflexion quadriceps. She appears comfortable. Results & Data ([facility]) Vital Signs (Past 12 Hours) Vital Signs Temp Pulse Pulse Resp BP BP Pulse Ox 09/22/20 07:30 36.5 C 55 L 18 173/96 H 93 09/22/20 07:18 54 L 09/22/20 05:03 185/96 H 09/22/20 04:00 37 C 55 L 18 180/82 H 94 09/21/20 23:33 36.9 C 58 L 18 161/87 H 93
--- NOTE | 2020-09-22 11:31 | Cardiology Progress Note ---
Date of Service September 22, 2020 Assessment & Plan (1) Atrial fibrillation with slow ventricular response: Patient is a 74-year-old female with complex constellation of underlying medical issues as noted in HPI. She has a history of longstanding paroxysmal atrial fibrillation previously controlled in sinus rhythm with antiarrhythmic therapy/Tikosyn. In the past she has been significantly symptomatic when in atrial fibrillation due to tachyarrhythmias. Current complaints of weakness and fatigue are association with newly observed (09/09/2020) recurrence of her atrial fibrillation though with slow ventricular response rate. This may not be the ultimate source of complaints but may easily be contributing. Underlying conduction system disease is present with past EKGs demonstrating bifascicular and trifascicular heart block. Heart rate still trending slow, blood pressure elevated but states clinically feels improved this morning Recommendations: Reduce metoprolol titrate to 50 mg twice per day Increase hydralazine to 25mg 3 times daily for further hypertension control (2) Paroxysmal atrial fibrillation: (3) Bilateral leg weakness: (4) Sleep apnea: If not using device patient should initiate (5) Hyperparathyroidism: (6) Bifascicular bundle branch block: Admission and Anticipated Discharge Date Admission Date: September 20, 2020 Subjective Patient was seen and examined, chart, medications, telemetry reviewed. Overall feels brighter today. Less discomfort. No dizziness or lig htheadedness. Blood pressure still trending high heart rate dipping at night, telemetry demonstrating persistent atrial fibrillation with intermittent slow ventricular response Review of Systems Review of Systems: All systems reviewed & are unremarkable except as noted in HPI & below Physical Exam Constitutional: + obese; no acute distress ENMT: external ear and nose normal, oropharynx normal Neck: trachea midline, no thyromegaly + thick neck Respiratory: normal respiratory effort, lungs clear to auscultation Cardiovascular: Rate/Rhythm: + bradycardic and + irregularly irregular Heart Sounds: normal S1 and normal S2; no gallop and no murmur Palpation: normal PMI Vessels: normal carotid upstroke and radial pulses present; no JVD and no carotid bruit Extremities: no edema Gastrointestinal (Abdomen): normal bowel sounds, soft, nontender, no hepatosplenomegaly Musculoskeletal: no cyanosis or clubbing, extremities motor strength 5/5 Skin: no rashes, warm and dry Neurologic: PERRL, EOMI, accommodation nl, no face palsy, no dysarthria Psychiatric: A+Ox3, euthymic affect Results & Data ([facility]) Vital Signs (Past 12 Hours) Vital Signs Temp Pulse Pulse Resp BP BP Pulse Ox 09/22/20 07:30 36.5 C 55 L 18 173/96 H 93 09/22/20 07:18 54 L 09/22/20 05:03 185/96 H 09/22/20 04:00 37 C 55 L 18 180/82 H 94 09/21/20 23:33 36.9 C 58 L 18 161/87 H 93 Laboratory Results Laboratory Results - last 24 hr 09/21/20 09/21/20 09/21/20 11:21 16:33 20:05 Sodium Potassium Chloride Carbon Dioxide Anion Gap BUN Creatinine Est Cr Clr Drug Dosing Est GFR ( Amer) Est GFR (Non-Af Amer) BUN/Creatinine Ratio Glucose POC Glucose 149 H 114 H 116 H Calcium 09/22/20 09/22/20 09/22/20 05:52 07:08 07:30 Sodium 144 Potassium 3.6 Chloride 113 H Carbon Dioxide 24 Anion Gap 7.0 BUN 28 H Creatinine 1.17 Est Cr Clr Drug Dosing 52.6 Est GFR ( Amer) 53.2 Est GFR (Non-Af Amer) 45.9 BUN/Creatinine Ratio 24.2 H Glucose 118 H POC Glucose 116 H Calcium 10.0
[2020-09-22] MEDS: hydrALAZINE HCL 25 MG TAB PO SCH ×2 (13:08→19:59)
[2020-09-22] MEDS: METOPROLOL TARTRATE 50 MG TAB PO SCH (20:00)
[2020-09-22] MEDS: DULoxetine HCL 60 MG CAP PO SCH (20:00)
[2020-09-22] MEDS: CHLORZOXAZONE 500 MG TAB PO SCH (20:02)
[2020-09-22] MEDS: INSULIN GLARGINE SOLOSTAR 100 UNITS/ML 3 ML PEN SC SCH (20:03)
[2020-09-22] MEDS ORDERED: hydrALAZINE HCL 20 MG/ML VIAL ONE (22:43)
[2020-09-22] MEDS: hydrALAZINE HCL 20 MG/ML VIAL IV STA ×2 (22:50→23:18)
[2020-09-22 23:43] LABS: Appearance Urine Clear (Clear); Bacteria Urine Automated Negative (Negative); Bilirubin Urine Negative (Negative); Blood Urine Negative (Negative); Color Urine Yellow; Glucose Urine UA Negative (Negative); Ketones Urine Negative (Negative); Leukocyte Esterase Urine Negative (Negative); Nitrite Urine Negative (Negative); Protein Urine 2+ (Negative); RBC Urine Automated 0-4 /hpf (0-4); Specific Gravity Urine 1.012 (1.000-1.030); Urobilinogen Urine Negative (Negative); pH Urine 6.5 (4.5-7.5)
[2020-09-23 00:54] LABS: Basophils # (auto) 0.04 K/uL (0-0.2); Basophils % (auto) 0.4 %; Eosinophils # (auto) 0.19 K/uL (0-0.5); Eosinophils % (auto) 1.8 %; Hematocrit (blood only) 46.2 % (37-47); Hemoglobin 15.5 g/dL (12.0-16.0); Immature Granulocytes # (auto) 0.03 K/uL (0.00-0.02); Immature Granulocytes % (auto) 0.3 %; Lymphocytes # (auto) 1.39 K/uL (1.2-3.4); Mean Corpuscular Hemoglobin 29.1 pg (25-34); Mean Corpuscular Volume 86.8 fL (80-100); Mean Platelet Volume 10.5 fL (7.4-10.4); Monocytes # (auto) 0.99 K/uL (0.11-0.59); Monocytes % (auto) 9.3 %; Neutrophils # (auto) 8.04 K/uL (1.4-6.5); Neutrophils % (auto) 75.2 %; Platelet Count 261 K/uL (130-400); RDW Coefficient of Variation 14.2 % (11.5-14.5); RDW Standard Deviation 44.7 fL (36.4-46.3); Red Blood Count 5.32 M/uL (4.2-5.4); White Blood Count 10.68 K/uL (4.8-10.8)
[2020-09-23 01:08] LABS: Mean Corpuscular Hgb Conc 33.5 g/dL (32-36)
[2020-09-23 01:08] LABS: Allen Test POS (Pos); Base Excess ABG 1.4 mEq/L (-9-1.8); HCO3 ABG 25 mmol/L (19-24); Oxygen Saturation ABG 93.1 % (90-95); PCO2 ABG 38 mmHg (35-46); PO2 ABG 65 mmHg (80-95); pH ABG 7.45 (7.35-7.45)
[2020-09-23 01:13] LABS: Albumin Level 3.5 gm/dl (3.4-5.0); BUN Creatinine Ratio 20.9 (10-20); Calcium 9.9 mg/dl (8.5-10.1); Creatinine Clr Calc Pharmacy 41.6 ml/min; Est GFR (Non-African American) 34.5; Potassium 3.6 mmol/L (3.5-5.1)
[2020-09-23 01:15] LABS: Albumin Globulin Ratio 0.9 (0.9-2); Bilirubin,Total 0.5 mg/dl (0.2-1); C Reactive Protein 0.46 mg/dl (0-0.29); Globulin 3.8 gm/dl (2.5-4.0); Total Protein 7.3 gm/dl (6.4-8.2)
[2020-09-23] MEDS: LEVOTHYROXINE SODIUM 137 MCG TABLET PO SCH (05:50)
--- NOTE | 2020-09-23 07:18 | CT Scan Report ---
HEAD CT NONCONTRAST CT DOSE: 1105.55 mGy.cm HISTORY: Htn urgency, altered mental status TECHNIQUE: Multiaxial CT images of the head were performed without the use of intravenous contrast. A utomated exposure control was utilized for this study. A dose lowering technique was utilized adheri ng to the principles of ALARA. Comparison: Head CT 09/19/2020. Findings: The paranasal sinuses and mastoid air cells are clear. The calvarium and skull base are int act. There is no mass, hematoma, midline shift, acute infarct. White matter hypodensity is nonspecifi c but suggestive of microvascular ischemic change. The ventricles and sulci demonstrate mild age-rela rasheeda involutional changes. Impression: No acute intracranial abnormality. Atrophy and microvascular ischemic changes. ACT 112: Negative or not required by law. Electronically signed by: Librado Mnea M.D. 09/23/2020 7:17 AM
--- NOTE | 2020-09-23 07:27 | CT Scan Report ---
CERVICAL SPINE CT CT DOSE: HISTORY: Altered mental status. lower extremity weakness TECHNIQUE: Multiaxial CT images of the cervical spine were performed and reformatted in the sagittal and coronal plane without the use of contrast. A dose lowering technique was utilized adhering to th e principles of ALARA. COMPARISON: None. FINDINGS: No fractures. Mild dextroscoliosis. Severe facet degenerative changes throughout the cervic al spine. In the C5-C6 vertebral bodies and facets are fused. Severe disc space narrowing within the lower cervical spine. Moderate disc space narrowing at C2-C3 and C3-C4. There is 3 mm of anterolisthe sis of C4 on C5. This is likely due to long-standing degenerative change. Prevertebral soft tissues a nd the C1-C2 interval are intact. No pneumothorax. IMPRESSION: No fractures within the cervical spine. ACT 112: Negative or not required by law. Electronically signed by: Librado Mena M.D. 09/23/2020 7:25 AM
[2020-09-23 08:39] LABS: Basophils # (auto) 0.02 K/uL (0-0.2); Basophils % (auto) 0.2 %; Hematocrit (blood only) 49.7 % (37-47); Hemoglobin 16.9 g/dL (12.0-16.0); Immature Granulocytes # (auto) 0.03 K/uL (0.00-0.02); Immature Granulocytes % (auto) 0.3 %; Lymphocytes # (auto) 1.02 K/uL (1.2-3.4); Lymphocytes % (auto) 10.6 %; Mean Corpuscular Volume 85.2 fL (80-100); Mean Platelet Volume 10.3 fL (7.4-10.4); Monocytes # (auto) 0.53 K/uL (0.11-0.59); Monocytes % (auto) 5.5 %; Neutrophils # (auto) 8.04 K/uL (1.4-6.5); Neutrophils % (auto) 83.4 %; Platelet Count 271 K/uL (130-400); RDW Coefficient of Variation 14.1 % (11.5-14.5); RDW Standard Deviation 43.6 fL (36.4-46.3); Red Blood Count 5.83 M/uL (4.2-5.4); White Blood Count 9.64 K/uL (4.8-10.8)
[2020-09-23] MEDS: SENSIPAR~ORDER AWAITING ACTION SCH (08:58)
[2020-09-23] MEDS: INSULIN ASPART 100 UNITS/ML 3 ML PEN SC SCH ×4 (09:06→21:43)
[2020-09-23] MEDS: METOPROLOL TARTRATE 50 MG TAB PO SCH ×2 (09:08→20:25)
[2020-09-23] MEDS: hydrALAZINE HCL 25 MG TAB PO SCH (09:08)
[2020-09-23] MEDS: LOSARTAN POTASSIUM 50 MG TAB PO SCH (09:09)
[2020-09-23] MEDS: THIAMINE HCL 50 MG TABLET PO SCH (09:09)
[2020-09-23] MEDS: FENOFIBRATE NANOCRYSTALLIZED 145 MG TABLET PO SCH (09:10)
[2020-09-23] MEDS: PANTOprazole 40 MG TAB PO SCH (09:10)
[2020-09-23] MEDS: CYCLOBENZAPRINE HCL 5 MG TAB PO SCH (09:10)
[2020-09-23] MEDS: RIVAROXABAN 15 MG TAB PO SCH (09:11)
[2020-09-23] MEDS: amLODIPine BESYLATE 5 MG TAB PO SCH ×2 (09:11→20:25)
[2020-09-23] MEDS: POLYETHYLENE (MIRALAX) 17 GM PACK PO SCH (09:16)
[2020-09-23] MEDS: PREGABALIN 100 MG CAP PO SCH (09:16)
[2020-09-23 09:23] LABS: BUN Creatinine Ratio 20.3 (10-20); Calcium 10.5 mg/dl (8.5-10.1); Creatinine Clr Calc Pharmacy 48.3 ml/min; Est GFR (African American) 48.1; Est GFR (Non-African American) 41.5; Potassium 4.1 mmol/L (3.5-5.1)
--- NOTE | 2020-09-23 10:21 | Cardiology Progress Note ---
Date of Service September 23, 2020 Assessment & Plan (1) Atrial fibrillation with slow ventricular response: Patient is a 74-year-old female with complex constellation of underlying medical issues as noted in HPI. She has a history of longstanding paroxysmal atrial fibrillation previously controlled in sinus rhythm with antiarrhythmic therapy/Tikosyn. In the past she has been significantly symptomatic when in atrial fibrillation due to tachyarrhythmias. Current complaints of weakness and fatigue are association with newly observed (09/09/2020) recurrence of her atrial fibrillation though with slow ventricular response rate. This may not be the ultimate source of complaints but may easily be contributing. Underlying conduction system disease is present with past EKGs demonstrating bifascicular and trifascicular heart block. Heart rates improved but blood pressure still elevated possibly in part due to agitation. Recommendations: We will increase hydralazine. Metoprolol to remain at current dosing ,suspect patient would benefit from clonidine but reluctant to add on centrally acting agent (2) Paroxysmal atrial fibrillation: Now likely persistent with low likelihood of returning to sinus rhythm (3) Bilateral leg weakness: (4) Sleep apnea: If not using device patient should initiate (5) Hyperparathyroidism: (6) Bifascicular bundle branch block: Admission and Anticipated Discharge Date Admission Date: September 20, 2020 Subjective Patient was seen and examined, chart, medications, telemetry reviewed. She was disoriented and confused overnight. Still lethargic this morning. Heart rates have improved but blood pressure trending higher. No hypoxia Physical Exam Constitutional: + obese; no acute distress ENMT: external ear and nose normal, oropharynx normal Neck: trachea midline, no thyromegaly + thick neck Respiratory: normal respiratory effort, lungs clear to auscultation Cardiovascular: Rate/Rhythm: + irregularly irregular Heart Sounds: normal S1 and normal S2; no gallop and no murmur Palpation: normal PMI Vessels: normal carotid upstroke and radial pulses present; no JVD and no carotid bruit Extremities: no edema Gastrointestinal (Abdomen): normal bowel sounds, soft, nontender, no hepatosplenomegaly Musculoskeletal: no cyanosis or clubbing, extremities motor strength 5/5 Skin: no rashes, warm and dry Neurologic: PERRL, EOMI, accommodation nl, no face palsy, no dysarthria Psychiatric: A+Ox3, euthymic affect Results & Data ([facility]) Vital Signs (Past 12 Hours) Vital Signs Temp Pulse Pulse Resp BP BP Pulse Ox 09/23/20 07:41 36.6 C 65 19 209/98 H 100 09/23/20 07:13 82 09/23/20 02:15 36.6 C 73 19 178/99 H 93 09/23/20 00:22 69 09/23/20 00:03 36.5 C 54 L 22 169/84 H 90 09/22/20 23:17 78 16 153/80 H 96 09/22/20 22:34 195/108 H 09/22/20 22:33 193/100 H 189/108 H Laboratory Results Laboratory Results - last 24 hr 09/22/20 09/22/20 09/22/20 11:26 16:33 20:00 WBC RBC Hgb Hct MCV MCH MCHC RDW Std Deviation RDW Coeff of Jeanette Plt Count MPV Immature Gran % (Auto) Neut % (Auto) Lymph % (Auto) [place] % (Auto) Eos % (Auto) Baso % (Auto) Neut # (Auto) Lymph # (Auto) [place] # (Auto) Eos # (Auto) Baso # (Auto) Immature Gran # (Auto) ABG pH ABG pCO2 ABG pO2 ABG HCO3 ABG O2 Saturation ABG Base Excess Rik Test Barometric Pressure Oxygen Given Sodium Potassium Chloride Carbon Dioxide Anion Gap BUN Creatinine Est Cr Clr Drug Dosing Est GFR ( Amer) Est GFR (Non-Af Amer) BUN/Creatinine Ratio Glucose POC Glucose 105 H 114 H 131 H Lactate Calcium Total Bilirubin AST ALT Alkaline Phosphatase Ammonia C-Reactive Protein Total Protein Albumin Globulin Albumin/Globulin Ratio Procalcitonin Urine Color Urine Appearance Urine pH Ur Specific [place] Urine Protein Urine Glucose (UA) Urine Ketones Urine Blood Urine Nitrite Urine Bilirubin Urine Urobilinogen Ur Leukocyte Esterase Urine WBC (Auto) Urine RBC (Auto) U Hyaline Cast (Auto) U Epithel Cells (Auto) Urine Bacteria (Auto) 09/22/20 09/23/20 09/23/20 22:30 00:25 00:25 WBC 10.68 RBC 5.32 Hgb 15.5 Hct 46.2 MCV 86.8 MCH 29.1 MCHC 33.5 RDW Std Deviation 44.7 RDW Coeff of Jeanette 14.2 Plt Count 261 MPV 10.5 H Immature Gran % (Auto) 0.3 Neut % (Auto) 75.2 Lymph % (Auto) 13.0 [place] % (Auto) 9.3 Eos % (Auto) 1.8 Baso % (Auto) 0.4 Neut # (Auto) 8.04 H Lymph # (Auto) 1.39 [place] # (Auto) 0.99 H Eos # (Auto) 0.19 Baso # (Auto) 0.04 Immature Gran # (Auto) 0.03 H ABG pH ABG pCO2 ABG pO2 ABG HCO3 ABG O2 Saturation ABG Base Excess Rik Test Barometric Pressure Oxygen Given Sodium 142 Potassium 3.6 Chloride 110 H Carbon Dioxide 25 Anion Gap 7.0 BUN 31 H Creatinine 1.48 H D Est Cr Clr Drug Dosing 41.6 Est GFR ( Amer) 40.0 Est GFR (Non-Af Amer) 34.5 BUN/Creatinine Ratio 20.9 H Glucose 153 H POC Glucose Lactate Calcium 9.9 Total Bilirubin 0.5 AST 14 L ALT 25 Alkaline Phosphatase 59 Ammonia C-Reactive Protein 0.46 H Total Protein 7.3 Albumin 3.5 Globulin 3.8 Albumin/Globulin Ratio 0.9 Procalcitonin Urine Color Yellow Urine Appearance Clear Urine pH 6.5 Ur Specific [place] 1.012 Urine Protein 2+ H Urine Glucose (UA) Negative Urine Ketones Negative Urine Blood Negative Urine Nitrite Negative Urine Bilirubin Negative Urine Urobilinogen Negative Ur Leukocyte Esterase Negative Urine WBC (Auto) 1-5 Urine RBC (Auto) 0-4 U Hyaline Cast (Auto) 1-5 U Epithel Cells (Auto) 10-20 H Urine Bacteria (Auto) Negative 09/23/20 09/23/20 09/23/20 00:25 00:25 00:25 WBC RBC Hgb Hct MCV MCH MCHC RDW Std Deviation RDW Coeff of Jeanette Plt Count MPV Immature Gran % (Auto) Neut % (Auto) Lymph % (Auto) [place] % (Auto) Eos % (Auto) Baso % (Auto) Neut # (Auto) Lymph # (Auto) [place] # (Auto) Eos # (Auto) Baso # (Auto) Immature Gran # (Auto) ABG pH ABG pCO2 ABG pO2 ABG HCO3 ABG O2 Saturation ABG Base Excess Rik Test Barometric Pressure Oxygen Given Sodium Potassium Chloride Carbon Dioxide Anion Gap BUN Creatinine Est Cr Clr Drug Dosing Est GFR ( Amer) Est GFR (Non-Af Amer) BUN/Creatinine Ratio Glucose POC Glucose Lactate 0.9 Calcium Total Bilirubin AST ALT Alkaline Phosphatase 61 Ammonia 11.9 C-Reactive Protein Total Protein Albumin Globulin Albumin/Globulin Ratio Procalcitonin Urine Color Urine Appearance Urine pH Ur Specific [place] Urine Protein Urine Glucose (UA) Urine Ketones Urine Blood Urine Nitrite Urine Bilirubin Urine Urobilinogen Ur Leukocyte Esterase Urine WBC (Auto) Urine RBC (Auto) U Hyaline Cast (Auto) U Epithel Cells (Auto) Urine Bacteria (Auto) 09/23/20 09/23/20 09/23/20 00:25 00:54 07:31 WBC RBC Hgb Hct MCV MCH MCHC RDW Std Deviation RDW Coeff of Jeanette Plt Count MPV Immature Gran % (Auto) Neut % (Auto) Lymph % (Auto) [place] % (Auto) Eos % (Auto) Baso % (Auto) Neut # (Auto) Lymph # (Auto) [place] # (Auto) Eos # (Auto) Baso # (Auto) Immature Gran # (Auto) ABG pH 7.45 ABG pCO2 38 ABG pO2 65 L ABG HCO3 25 H ABG O2 Saturation 93.1 ABG Base Excess 1.4 Rik Test POS Barometric Pressure 739.9 Oxygen Given ROOM AIR Sodium Potassium Chloride Carbon Dioxide Anion Gap BUN Creatinine Est Cr Clr Drug Dosing Est GFR ( Amer) Est GFR (Non-Af Amer) BUN/Creatinine Ratio Glucose POC Glucose 141 H Lactate Calcium Total Bilirubin AST ALT Alkaline Phosphatase Ammonia C-Reactive Protein Total Protein Albumin Globulin Albumin/Globulin Ratio Procalcitonin < 0.05 Urine Color Urine Appearance Urine pH Ur Specific [place] Urine Protein Urine Glucose (UA) Urine Ketones Urine Blood Urine Nitrite Urine Bilirubin Urine Urobilinogen Ur Leukocyte Esterase Urine WBC (Auto) Urine RBC (Auto) U Hyaline Cast (Auto) U Epithel Cells (Auto) Urine Bacteria (Auto) 09/23/20 09/23/20 08:23 08:23 WBC 9.64 RBC 5.83 H Hgb 16.9 H Hct 49.7 H MCV 85.2 MCH 29.0 MCHC 34.0 RDW Std Deviation 43.6 RDW Coeff of Jeanette 14.1 Plt Count 271 MPV 10.3 Immature Gran % (Auto) 0.3 Neut % (Auto) 83.4 Lymph % (Auto) 10.6 [place] % (Auto) 5.5 Eos % (Auto) 0.0 Baso % (Auto) 0.2 Neut # (Auto) 8.04 H Lymph # (Auto) 1.02 L [place] # (Auto) 0.53 Eos # (Auto) 0.00 Baso # (Auto) 0.02 Immature Gran # (Auto) 0.03 H ABG pH ABG pCO2 ABG pO2 ABG HCO3 ABG O2 Saturation ABG Base Excess Rik Test Barometric Pressure Oxygen Given Sodium 141 Potassium 4.1 Chloride 110 H Carbon Dioxide 23 Anion Gap 8.0 BUN 26 H Creatinine 1.27 H Est Cr Clr Drug Dosing 48.3 Est GFR ( Amer) 48.1 Est GFR (Non-Af Amer) 41.5 BUN/Creatinine Ratio 20.3 H Glucose 152 H POC Glucose Lactate Calcium 10.5 H Total Bilirubin AST ALT Alkaline Phosphatase Ammonia C-Reactive Protein Total Protein Albumin Globulin Albumin/Globulin Ratio Procalcitonin Urine Color Urine Appearance Urine pH Ur Specific [place] Urine Protein Urine Glucose (UA) Urine Ketones Urine Blood Urine Nitrite Urine Bilirubin Urine Urobilinogen Ur Leukocyte Esterase Urine WBC (Auto) Urine RBC (Auto) U Hyaline Cast (Auto) U Epithel Cells (Auto) Urine Bacteria (Auto) Medications Administered Current Medications Acetaminophen (Acetaminophen 500 Mg Tab) 1,000 mg PO Q8 PRN PRN Reason: headache, pain or fever Stop: 10/20/20 05:59 Last Admin: 09/22/20 23:30 Dose: 1,000 mg Documented by: Al Hydrox/Mg Hydrox/Simethicone (Aluminum/Magnesium Susp 30 Ml Udc) 30 ml PO Q6H PRN PRN Reason: Dyspepsia Stop: 10/20/20 00:15 Amlodipine Besylate (Amlodipine Besylate 5 Mg Tab) 5 mg PO BID [facility] Stop: 10/23/20 08:59 Last Admin: 09/23/20 09:11 Dose: 5 mg Documented by: Dextrose (Dextrose 50% 50 Ml Syringe) 25 - 50 ml IV UD PRN; Protocol PRN Reason: Hypoglycemia Protocol Stop: 10/20/20 00:15 Diclofenac Sodium (Diclofenac Sod 1% Gel 100 Gm Tube) 2 gm EXT QID PRN PRN Reason: Pain Stop: 10/20/20 00:15 Dofetilide (Dofetilide 125 Mcg Capsule) 250 mcg PO BID [facility] Stop: 10/20/20 00:15 Last Admin: 09/20/20 09:20 Dose: 250 mcg Documented by: Fenofibrate (Fenofibrate Nanocrystallized 145 Mg Tablet) 145 mg PO DAILY FRAN Stop: 10/20/20 08:59 Last Admin: 09/23/20 09:10 Dose: 145 mg Documented by: Fluticasone Propionate (Fluticasone Propionate Na Spr 16 Gm Btl) 1 sprays NA D AILY PRN PRN Reason: allergy symptoms Stop: 10/20/20 00:15 Glucagon (Glucagon For Inj 1 Mg Vial) 1 mg SQ UD PRN; Protocol PRN Reason: Hypoglycemia Protocol Stop: 10/20/20 00:15 Glucose (Glucose 10 Tabs/Tube) 4 - 8 tabs PO UD PRN; Protocol PRN Reason: Hypoglycemia Protocol Stop: 10/20/20 00:15 Glucose (Glucose 40% Gel 15 Gm Tube) 15 - 30 gm PO UD PRN; Protocol PRN Reason: Hypoglycemia Protocol Stop: 10/20/20 00:15 Hydralazine HCl (Hydralazine Hcl 25 Mg Tab) 25 mg PO TID FRAN Stop: 10/22/20 13:59 Last Admin: 09/23/20 09:08 Dose: 25 mg Documented by: Insulin Aspart (Insulin Aspart 100 Units/Ml 3 Ml Pen) 0 units SC ACHS FRAN Stop: 10/20/20 07:29 Last Admin: 09/23/20 09:06 Dose: Not Given Documented by: Insulin Glargine (Insulin Glargine Solostar 100 Units/Ml 3 Ml Pen) 8 units SC HS [facility] Stop: 10/20/20 20:59 Last Admin: 09/22/20 20:03 Dose: 8 units Documented by: Levothyroxine Sodium (Levothyroxine Sodium 137 Mcg Tablet) 137 mcg PO DAILYBB FRAN Stop: 10/20/20 06:29 Last Admin: 09/23/20 05:50 Dose: 137 mcg Documented by: Lidocaine (Lidocaine 5% 1 Patch) 1 patch TD DAILY PRN PRN Reason: pain Stop: 10/20/20 01:12 Losartan Potassium (Losartan Potassium 50 Mg Tab) 100 mg PO QAM FRAN Stop: 10/20/20 08:59 Last Admin: 09/23/20 09:09 Dose: 100 mg Documented by: Magnesium Hydroxide (Magnesium Hydroxide Susp 30 Ml Udc) 30 ml PO Q6H PRN PRN Reason: Constipation Stop: 10/20/20 00:15 Melatonin (Melatonin 3 Mg Tab) 6 mg PO HSZ PRN PRN Reason: Sleep Stop: 10/20/20 00:52 Metoprolol Tartrate (Metoprolol Tartrate 50 Mg Tab) 50 mg PO BID [facility] Stop: 10/22/20 20:59 Last Admin: 09/23/20 09:08 Dose: 50 mg Documented by: Miscellaneous (Carbohydrates For Hypoglycemia ) 15 - 30 gm PO UD PRN PRN Reason: Hypoglycemia Protocol Stop: 10/20/20 00:15 Miscellaneous (Sensipar~Order Awaiting Action) 1 ea N/A QS [facility] Stop: 10/20/20 01:04 Last Admin: 09/23/20 08:58 Dose: Not Given Documented by: Miscellaneous (Remove Lidoderm Patch) 1 ea N/A DAILY@2100 [facility] Stop: 10/20/20 20:59 Last Admin: 09/22/20 20:01 Dose: Not Given Documented by: Ondansetron HCl (Ondansetron Inj 2 Mg/Ml 2 Ml Vial) 4 mg IV Q6H PRN PRN Reason: Nausea Stop: 10/20/20 00:15 Pantoprazole Sodium (Pantoprazole 40 Mg Tab) 40 mg PO DAILY FRAN Stop: 10/20/20 08:59 Last Admin: 09/23/20 09:10 Dose: 40 mg Documented by: Polyethylene Glycol (Polyethylene (Miralax) 17 Gm Pack) 17 gm PO DAILY FRAN Stop: 10/20/20 08:59 Last Admin: 09/23/20 09:16 Dose: 17 gm Documented by: Rivaroxaban (Rivaroxaban 15 Mg Tab) 15 mg PO DAILY FRAN Stop: 10/20/20 08:59 Last Admin: 09/23/20 09:11 Dose: 15 mg Documented by: Thiamine HCl (Thiamine Hcl 50 Mg Tablet) 50 mg PO QAM FRAN Stop: 10/23/20 08:59 Last Admin: 09/23/20 09:09 Dose: 50 mg Documented by:
[2020-09-23] MEDS ORDERED: hydrALAZINE HCL 25 MG TAB PO ONE (10:31)
--- NOTE | 2020-09-23 13:18 | Hospitalist Progress Note ---
Date of Service September 23, 2020 Assessment & Plan (1) Bilateral leg weakness: lageCould be related to the severe thoracic and lumbar spinal stenosis. Will discontinue LAUN[employer]Y [employer]ICING [employer]ERK depressants which have made her lethargic and start a trial of parenteral steroid therapy. Case discussed with orthopedic surgery, Dr. Corey Mederos. Continue OT and PT. Eventual discharge to [facility] Paroxysmal afib/Bradycardia Telemetry. Appreciate cardiology consultation and recommendations. Metoprolol has been down titrated. Digoxin and Tikosyn have been discontinued. Heart rate has improved. Blood pressure is better controlled with up titration of amlodipine and hydralazine. ECHO with mod LVH, no wma, EF 65-70%. Mild aortic sclerosis without stenosis, LA severely dilated, trace AI EKG with IVCD.Underlying conduction system disease on past EKGs as well demonstrating bifascicular and trifascicular heart block Fall Lumbar spine CT without contrast showing posterior interbody estrada and screw fusion at L1-L5 with some findings suggestive of hardware loosening. Dr Mederos consulted . No surgical intervention at this time. Parenteral steroid trial ordered. Continue PT and OT. Hypercalcemia: Mild. Will follow Controlled type 2 diabetes mellitus with neurologic complication, with long-term current use of insulin: A1c 6.3. Continue Lantus 8 units nightly. Resume Metformin at some point. ADA diet. Sliding scale coverage. Hypothyroidism Continue levothyroxine 137mcg daily. TSH wnl HTN Amlodipine and hydralazine uptitrated as metoprolol was down titrated. Currently controlled. CKD III Stable. Monitor intake and output. Serial lab studies. Dispo: Eventual discharge to [facility] for continued care. (2) Toxic encephalopathy: Admission and Anticipated Discharge Date Admission Date: September 20, 2020 Subjective Very lethargic and she repeatedly falls asleep during my evaluation. PCO2 is normal. This appears to be toxic encephalopathy from medication side effect. Multiple LAUNDRY [employer]ICING [employer]ERK depressants have been discontinued. Case discussed with orthopedic surgery, Dr. Corey Mederos. Will start trial of parenteral steroids to see if this helps her back pain and bilateral leg weakness. Eventual discharge to [facility] pending. Review of Systems Review of Systems: Unobtainable due to cognitive status Physical Exam Physical Exam: General-lethargic but arousable. No apparent focal deficits. HEENT-head atraumatic and normocephalic, pupils equal and reactive to light, extraocular muscles intact Neck-no lymphadenopathy or thyromegaly, trachea midline Chest-clear to auscultation percussion. No rales wheezing or rhonchi Cardiac-regular rate and rhythm, normal S1 and S2 Abdomen-normal bowel sounds, nontender, no hepatosplenomegaly Extremities-no cyanosis, clubbing, or edema Neuro-lethargic. Arousable. No apparent focal motor deficits. Psych-cannot be assessed due to cognitive status Results & Data Results & Data ([facility]) Vital Signs (Past 12 Hours) Vital Signs Temp Pulse Pulse Resp BP BP Pulse Ox 09/23/20 11:15 36.8 C 55 L 20 155/90 H 96 09/23/20 10:45 152/77 H 09/23/20 07:41 36.6 C 65 19 209/98 H 100 09/23/20 07:13 82 09/23/20 02:15 36.6 C 73 19 178/99 H 93 Laboratory Results 09/23/20 08:23 09/23/20 08:23 PG Care Time/CCT Total # of Minutes Spent Total Time Spent with Patient: Total time spent is greater than 50% in coordination of care (as documented) at patient's floor/unit and/or counseling patient: Coding Level of Care Code 45064 Subseq Hosp Care Lvl 3 Diagnoses Bilateral leg weakness R29.898 Toxic encephalopathy G92
[2020-09-23] MEDS: ACETAMINOPHEN 500 MG TAB PO PRN (14:42)
[2020-09-23] MEDS: methylPREDNISolone 60 MG in SYRINGE 0 ML IV SCH ×2 (14:42→20:24)
[2020-09-23] MEDS: hydrALAZINE TAB 50 MG TAB PO SCH ×2 (14:44→20:25)
[2020-09-23] MEDS: CINACALCET HCL 30 MG TAB PO SCH (17:52)
[2020-09-23] MEDS: MELATONIN 3 MG TAB PO PRN ×2 (20:26→21:13)
[2020-09-23] MEDS: INSULIN GLARGINE SOLOSTAR 100 UNITS/ML 3 ML PEN SC SCH (21:41)
[2020-09-24] MEDS: methylPREDNISolone 60 MG in SYRINGE 0 ML IV SCH ×4 (02:56→20:55)
[2020-09-24] MEDS: LEVOTHYROXINE SODIUM 137 MCG TABLET PO SCH (05:38)
[2020-09-24 07:16] LABS: BUN Creatinine Ratio 26.2 (10-20); Calcium 9.9 mg/dl (8.5-10.1); Creatinine Clr Calc Pharmacy 51.4 ml/min; Est GFR (African American) 52.6; Est GFR (Non-African American) 45.4
[2020-09-24] MEDS: INSULIN ASPART 100 UNITS/ML 3 ML PEN SC SCH ×4 (09:12→21:26)
[2020-09-24] MEDS: LOSARTAN POTASSIUM 50 MG TAB PO SCH (09:13)
[2020-09-24] MEDS: hydrALAZINE TAB 50 MG TAB PO SCH ×3 (09:13→21:24)
[2020-09-24] MEDS: amLODIPine BESYLATE 5 MG TAB PO SCH ×2 (09:14→21:26)
[2020-09-24] MEDS: PANTOprazole 40 MG TAB PO SCH (09:14)
[2020-09-24] MEDS: METOPROLOL TARTRATE 50 MG TAB PO SCH ×2 (09:14→21:25)
[2020-09-24] MEDS: THIAMINE HCL 50 MG TABLET PO SCH (09:15)
[2020-09-24] MEDS: RIVAROXABAN 15 MG TAB PO SCH (09:15)
[2020-09-24] MEDS: FENOFIBRATE NANOCRYSTALLIZED 145 MG TABLET PO SCH (09:15)
[2020-09-24] MEDS: POLYETHYLENE (MIRALAX) 17 GM PACK PO SCH (09:19)
[2020-09-24] MEDS: ACETAMINOPHEN 500 MG TAB PO PRN (09:19)
[2020-09-24] MEDS: CINACALCET HCL 30 MG TAB PO SCH (10:39)
[2020-09-24] MEDS ORDERED: hydrALAZINE TAB 50 MG TAB PO SCH (13:00)
--- NOTE | 2020-09-24 13:49 | Cardiology Progress Note ---
Date of Service September 24, 2020 Assessment & Plan (1) Atrial fibrillation with slow ventricular response: Patient is a 74-year-old female with complex constellation of underlying medical issues as noted in HPI. She has a history of longstanding paroxysmal atrial fibrillation previously controlled in sinus rhythm with antiarrhythmic therapy/Tikosyn. In the past she has been significantly symptomatic when in atrial fibrillation due to tachyarrhythmias. Current complaints of weakness and fatigue are association with newly observed (09/09/2020) recurrence of her atrial fibrillation though with slow ventricular response rate. This may not be the ultimate source of complaints but may easily be contributing. Underlying conduction system disease is present with past EKGs demonstrating bifascicular and trifascicular heart block. Heart rates improved but blood pressure still elevated Recommendations: Change hydralazine to 75 mg 3 times daily all other medications to continue (2) Paroxysmal atrial fibrillation: Now likely persistent with low likelihood of returning to sinus rhythm (3) Bilateral leg weakness: (4) Sleep apnea: If not using device patient should initiate (5) Hyperparathyroidism: (6) Bifascicular bundle branch block: Admission and Anticipated Discharge Date Admission Date: September 20, 2020 Subjective Patient was seen and examined, chart, medications, telemetry reviewed. Once again brighter this morning more oriented. Slept last night without agitation. Patient remains in atrial fibrillation with relatively slow ventricular response rate but improved. Blood pressure trending toward slightly better control. Review of Systems Review of Systems: All systems reviewed & are unremarkable except as noted in HPI & below Physical Exam Constitutional: + obese; no acute distress ENMT: external ear and nose normal, oropharynx normal Neck: trachea midline, no thyromegaly + thick neck Respiratory: normal respiratory effort, lungs clear to auscultation Cardiovascular: Rate/Rhythm: + irregularly irregular Heart Sounds: normal S1 and normal S2; no gallop and no murmur Palpation: normal PMI Vessels: normal carotid upstroke and radial pulses present; no JVD and no carotid bruit Extremities: no edema Gastrointestinal (Abdomen): normal bowel sounds, soft, nontender, no hepatosplenomegaly Musculoskeletal: no cyanosis or clubbing, extremities motor strength 5/5 Skin: no rashes, warm and dry Neurologic: PERRL, EOMI, accommodation nl, no face palsy, no dysarthria Psychiatric: A+Ox3, euthymic affect Results & Data ([facility]) Vital Signs (Past 12 Hours) Vital Signs Temp Pulse Resp BP BP Pulse Ox 09/24/20 12:00 37.1 C 62 17 157/88 H 91 09/24/20 07:26 36.6 C 62 19 161/85 H 93 09/24/20 03:40 36.6 C 63 18 131/81 92 Laboratory Results Laboratory Results - last 24 hr 09/23/20 09/23/20 09/24/20 16:22 21:37 06:13 Sodium 141 Potassium 4.0 Chloride 110 H Carbon Dioxide 27 Anion Gap 4.0 BUN 31 H Creatinine 1.18 Est Cr Clr Drug Dosing 51.4 Est GFR ( Amer) 52.6 Est GFR (Non-Af Amer) 45.4 BUN/Creatinine Ratio 26.2 H Glucose 113 H POC Glucose 121 H 170 H Calcium 9.9 09/24/20 09/24/20 07:32 11:26 Sodium Potassium Chloride Carbon Dioxide Anion Gap BUN Creatinine Est Cr Clr Drug Dosing Est GFR ( Amer) Est GFR (Non-Af Amer) BUN/Creatinine Ratio Glucose POC Glucose 114 H 138 H Calcium
--- NOTE | 2020-09-24 14:55 | Hospitalist Progress Note ---
Date of Service September 24, 2020 Assessment & Plan (1) Bilateral leg weakness: Could be related to the severe thoracic and lumbar spinal stenosis. HEPATOLOGIST depressants discontinued which have made her lethargic. She appears to be responding to a trial of parenteral steroid therapy. Case discussed with orthopedic surgery, Dr. Corey Mederos. Continue OT and PT. Paroxysmal afib/Bradycardia Telemetry. Appreciate cardiology consultation and recommendations. Metoprolol has been down titrated. Digoxin and Tikosyn have been discontinued. Heart rate has improved. Blood pressure is better controlled with up titration of amlodipine and hydralazine. ECHO with mod LVH, no wma, EF 65-70%. Mild aortic sclerosis without stenosis, LA severely dilated, trace AI EKG with IVCD.Underlying conduction system disease on past EKGs as well demonstrating bifascicular and trifascicular heart block Fall Lumbar spine CT without contrast showing posterior interbody estrada and screw fusion at L1-L5 with some findings suggestive of hardware loosening. Dr Mederos consulted . No surgical intervention at this time. Parenteral steroid trial ordered. Continue PT and OT. Hypercalcemia: Mild. Will follow Toxic encephalopathy: Due to HEPATOLOGIST medications/muscle relaxants. These medications have been discontinued yesterday and she is alert and oriented today. Controlled type 2 diabetes mellitus with neurologic complication, with long-term current use of insulin: A1c 6.3. Continue Lantus 8 units nightly. Resume Metformin at discharge . ADA diet. Sliding scale coverage. Hypothyroidism Continue levothyroxine 137mcg daily. TSH wnl HTN Amlodipine and hydralazine uptitrated as metoprolol was down titrated. Currently controlled. CKD III Stable. Monitor intake and output. Serial lab studies. Dispo: Eventual discharge to [facility] for continued care. Anticipate discharge tomorrowSeptember 25 (2) Toxic encephalopathy: Admission and Anticipated Discharge Date Admission Date: September 20, 2020 Subjective Alert now after HEPATOLOGIST depressants discontinued yesterday. She feels better with steroid therapy. Overall she is much improved. Anticipate discharge to [facility] tomorrowSeptember 25. Hydralazine uptitrated to 4 times a day dosing for better blood pressure control. Creatinine now trending down Review of Systems Review of Systems: All systems reviewed & are unremarkable except as noted in HPI & below Physical Exam Physical Exam: General-alert and oriented x3, no fevers, no chills. Obese HEENT-head atraumatic and normocephalic, TMs intact bilaterally, pupils equal and reactive to light, extraocular muscles intact Neck-no lymphadenopathy or thyromegaly, trachea midline Chest-clear to auscultation percussion. No rales wheezing or rhonchi Cardiac-regular rate and rhythm, normal S1 and S2 Abdomen-normal bowel sounds, nontender, no hepatosplenomegaly Extremities-no cyanosis, clubbing, or edema Neuro-cranial nerves II through XII intact, motor and sensory function within normal limits, strength symmetrical , no focal deficits Psych-normal affect, normal mood Results & Data Results & Data ([facility]) Vital Signs (Past 12 Hours) Vital Signs Temp Pulse Resp BP BP Pulse Ox 09/24/20 12:00 37.1 C 62 17 157/88 H 91 09/24/20 07:26 36.6 C 62 19 161/85 H 93 09/24/20 03:40 36.6 C 63 18 131/81 92 Laboratory Results 09/23/20 08:23 09/24/20 06:13 PG Care Time/CCT Total # of Minutes Spent Total Time Spent with Patient: Total time spent is greater than 50% in coordination of care (as documented) at patient's floor/unit and/or counseling patient: Coding Level of Care Code 07361 Subseq Hosp Care Lvl 3 Diagnoses Bilateral leg weakness R29.898 Toxic encephalopathy G92
[2020-09-24] MEDS: metFORMIN HCL 500 MG TAB PO SCH (17:08)
[2020-09-24] MEDS: INSULIN GLARGINE SOLOSTAR 100 UNITS/ML 3 ML PEN SC SCH (21:25)
[2020-09-25] MEDS: methylPREDNISolone 60 MG in SYRINGE 0 ML IV SCH ×2 (01:37→09:12)
[2020-09-25] MEDS: LEVOTHYROXINE SODIUM 137 MCG TABLET PO SCH (06:02)
[2020-09-25 07:12] LABS: BUN Creatinine Ratio 27.2 (10-20); Calcium 10.1 mg/dl (8.5-10.1); Est GFR (African American) 45.9; Est GFR (Non-African American) 39.6; Potassium 4.1 mmol/L (3.5-5.1)
[2020-09-25] MEDS: INSULIN ASPART 100 UNITS/ML 3 ML PEN SC SCH ×2 (09:10→12:33)
[2020-09-25] MEDS: THIAMINE HCL 50 MG TABLET PO SCH (09:11)
[2020-09-25] MEDS: metFORMIN HCL 500 MG TAB PO SCH (09:11)
[2020-09-25] MEDS: LOSARTAN POTASSIUM 50 MG TAB PO SCH (09:12)
[2020-09-25] MEDS: PANTOprazole 40 MG TAB PO SCH (09:13)
[2020-09-25] MEDS: POLYETHYLENE (MIRALAX) 17 GM PACK PO SCH (09:13)
[2020-09-25] MEDS: METOPROLOL TARTRATE 50 MG TAB PO SCH (09:13)
[2020-09-25] MEDS: amLODIPine BESYLATE 5 MG TAB PO SCH (09:13)
[2020-09-25] MEDS: FENOFIBRATE NANOCRYSTALLIZED 145 MG TABLET PO SCH (09:14)
[2020-09-25] MEDS: CINACALCET HCL 30 MG TAB PO SCH (09:14)
[2020-09-25] MEDS: RIVAROXABAN 15 MG TAB PO SCH (09:15)
[2020-09-25] MEDS: hydrALAZINE TAB 50 MG TAB PO SCH (09:15)
[2020-09-25] MEDS: ACETAMINOPHEN 500 MG TAB PO PRN (09:18)
--- NOTE | 2020-09-25 12:53 | Discharge Summary ---
Date of Service September 25, 2020 Admission HPI Per Admitting Provider 74-year-old female with a past medical history of multiple spinal surgeries for vertebral fusion, diabetic peripheral neuropathy, type 2 diabetes, primary hyperparathyroidism, A. fib, HLD, TIERRA, GERD, asthma who presents for emergency department with complaints of leg weakness bilaterally left greater than right. She states that this weakness has been going on for some months now but acutely has gotten worse in the last week or so. She states she has long-term peripheral neuropathy because approximately a half of her calves on both sides. Describes the pain is going from 0-10 intermittently and without pattern. She describes it as a wincing, spasmodic pain that goes from her foot to her left knee. She denies radiation up her leg or in her pelvis or lower abdomen area. Her who is also at bedside notes that approximately 1 week ago she fell at home and that is what launched the complaints of increased pain. Today her pain episode was triggered by going down 3 stairs and having her foot slide out from underneath her and landing on the stair herself. She states that she could feel her knees giving out underneath her just before she fell. Denies any dizziness or lightheadedness or blurred vision before falling. Outside of her longstanding peripheral neuropathy she denies any numbness tingling. Primary Care Provider: Dirk Cooper DO Principal Diagnosis Lumbar stenosis with radiculopathy, recurrent atrial fibrillation with bradycardia, toxic encephalopathy secondary to medications Discharge Data Allergies Allergy/AdvReac Type Severity Reaction Status Date / Time Aminoglycosides Allergy Intermediate rash Verified 09/19/20 20:46 neomycin Allergy Intermediate RASH Verified 09/19/20 20:46 nickel Allergy Intermediate rash Verified 09/19/20 20:46 piroxicam Allergy Intermediate RASH Verified 09/19/20 20:46 polymyxin B Allergy Intermediate rash Verified 09/19/20 20:46 house dust Allergy Mild Sneezing Verified 09/19/20 20:46 oxycodone [From Roxicodone] AdvReac Mild Shakiness Verified 09/19/20 20:46 Khsjfvr-Ksz-Ils Reductase AdvReac Mild MUSCLE AND Verified 09/19/20 20:46 Inhibitor JOINT PAIN Consultations 09/19/20 21:10 ED Decision to Admit Stat 09/20/20 00:16 Consult Orthopedic Surgery Routine 09/20/20 10:54 Consult Cardiology Routine Ordered Studies 09/19/20 18:51 CT head/brain wo con Stat 09/19/20 18:57 CT lumbar spine wo con Stat 09/20/20 12:33 MR thoracic spine wo con Routine 09/22/20 19:49 CT head/brain wo con Urgent 09/22/20 22:38 CT cervical spine wo con Urgent Hospital Course (1) Bilateral leg weakness: Probably due to severe thoracic and lumbar spinal stenosis. 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 She is responding to a trial of parenteral steroid therapy. We will switch to a oral prednisone taper at discharge. Case discussed with orthopedic surgery, Dr. Corey Mederos. Continue OT and PT. Paroxysmal afib/Bradycardia Telemetry. Appreciate cardiology consultation and recommendations. Metoprolol has been down titrated. Digoxin and Tikosyn have been discontinued. Heart rate has improved. Blood pressure is better controlled with up titration of amlodipine and hydralazine. ECHO with mod LVH, no wma, EF 65-70%. Mild aortic sclerosis without stenosis, LA severely dilated, trace AI EKG with IVCD.Underlying conduction system disease on past EKGs as well demonstrating bifascicular and trifascicular heart block Fall Lumbar spine CT without contrast showing posterior interbody estrada and screw fusion at L1-L5 with some findings suggestive of hardware loosening. Dr Mederos consulted . No surgical intervention at this time. Parenteral steroid have helped. Oral prednisone taper at discharge. Continue PT and OT. Hypercalcemia: Mild. 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 These medications have been discontinued and she is now alert and oriented . Controlled type 2 diabetes mellitus with neurologic complication, with long-term current use of insulin: A1c 6.3. Continue Lantus 8 units nightly. Resume Metformin at discharge . ADA diet. Sliding scale coverage. Hypothyroidism Continue levothyroxine 137mcg daily. TSH wnl HTN Amlodipine and hydralazine uptitrated as metoprolol was down titrated. Currently controlled. CKD III Stable. Monitor intake and output. Serial lab studies. Dispo: discharge to [facility] today, September 25 (2) Toxic encephalopathy: Total Time Total Time Spent Total Time Spent (In Minutes): 40 minutes Total Time Includes: Examination of the Patient, Discharge Planning and Medication Reconciliation Discharge Plan Discharge Items Patient Disposition: Transfer Halfway Fac Reason For Visit: WEAKNESS, LEG PAIN Discharge Diagnosis: Weakness, Symptomatic Bradycardia Goals: You have been hospitalized for an acute medical problem. During your stay at [facility], we have made an effort to correct the problem that brought you to the hospital while keeping you as comfortable as possible. Medications were used to bring your condition under control and your discharge instructions will include directions for any medications you should take after leaving the hospital. Please make sure you see your Primary Care Provider as part of your follow up plan. Activity: Resume your previous activity Activity Comment: advance as tolerated with therapy Non-emergency contact: Primary Care Provider and Palliative Care Coordinator Call non-emergency contact if: you have any medication questions, your symptoms worsen and your pain is concerning for you Follow-up/Referrals: Dirk Cooper DO [Primary Care Provider] - Chris Lopez DO [Palliative Care Coordinator] - (1-2 weeks) Diet: Carb Consistent or DM2 and Heart Healthy Addtl Attending Provider Instructions: You have been hospitalized for worsening weakness. Your urine was without evidence for infection. CT of your head was negative for acute findings and your chest x-ray was without evidence for a pneumonia. This is likely a combination of cardiac etiology given you were found to be back in afib (as early as earlier this month during your ER visit) as this can very well be contributory as well as spinal stenosis in your back. Given your history of cardiac ablations, an approach for rate controlled has been employed. [facility] cardiology was consulted during your inpatient stay and decision has been made as follows: * Digoxin has been DISCONTINUED * Tikosyn has been DISCONTINUED * Metoprolol -- your dose has been DECREASED to 50mg by mouth TWICE daily from the previous 75mg doses. This is to prevent such low heart rates that were likely contributing to your weakness. * Amlodipine -- your dose has been INCREASED to TWICE daily dosing. You should continue the same 2.5mg dose, but take TWICE daily to help with your blood pressure * HYDRALAZINE -- NEW. This medication has been added to help control your blood pressure and has been increased to a dose of 25mg by mouth THREE TIMES daily for better control You should continue your losartan at it's previous 100mg dose. You will need to follow up with Cardiology at discharge for monitoring after discharge. In addition, imaging of your back was performed which does show some narrowing and possibly contributing to your weakness, however discussion with Dr. Mederos and yourself was had and decision was made to avoid intervention at this time and instead pursue rehab with physical therapy to help improve your strength and mobility. You have been set up for rehab at [facility]. Please follow up with your primary care provider in the next 1-2 weeks to monitor your progress. Please return to the emergency department with any fever, chest pain, shortness of breath, increased weakness of bowel/bladder incontinence or for any other symptoms that are concerning for you. It has been a pleasure being a part of the medical team providing for you while you have been in the hospital. Take care! Stand-Alone Forms: My [facility] Skilled Items Patient informed of condition?: Yes DNR: No Discharge Level of Care: Acute rehab Communicable Disease: No Discharge Prognosis: Stable Lines: None Urinary Catheter: No Medications and DC Order Prescriptions: New amlodipine [Norvasc] 5 mg Tablet 2.5 mg PO BID Qty: 60 RF: 0 metoprolol tartrate 50 mg Tablet 50 mg PO BID Qty: 60 RF: 0 hydralazine 25 mg Tablet 25 mg PO TID Qty: 90 RF: 0 Discontinued amlodipine 2.5 mg tablet 2.5 mg PO HS Qty: 90 RF: 1 metoprolol tartrate [Lopressor] 50 mg tablet 75 mg PO BID RF: 0 dofetilide [Tikosyn] 250 mcg Capsule 250 mcg PO BID RF: 0 digoxin 125 mcg Tablet 125 mcg PO QAM RF: 0 No Action albuterol sulfate 90 mcg/actuation HFA aerosol inhaler 1 - 2 puffs inhalation Q4H PRN (Reason: shortness of breath or wheezing) Qty: 8.5 RF: 1 metformin 500 mg tablet 1,000 mg PO BID Qty: 120 RF: 11 hydroxyzine HCl 25 mg tablet 25 - 50 mg PO HS PRN (Reason: itching) Qty: 60 RF: 5 rabeprazole [AcipHex] 20 mg tablet,delayed release (DR/EC) 20 mg PO DAILY Qty: 30 RF: 5 pregabalin 100 mg capsule 100 mg PO TID Qty: 90 RF: 1 chlorzoxazone 500 mg tablet 500 mg PO HS Qty: 30 RF: 5 fenofibrate nanocrystallized 145 mg tablet 145 mg PO DAILY Qty: 30 RF: 5 cinacalcet [Sensipar] 30 mg tablet 30 mg PO DAILY RF: 0 fluticasone propionate [Flonase Allergy Relief] 50 mcg/actuation spray,suspension 1 spray INTNAS DAILY PRN (Reason: allergy symptoms) RF: 0 lidocaine [Salonpas (lidocaine)] 4 % adhesive patch,medicated 1 patch topical Q24H PRN (Reason: pain) RF: 0 Xarelto 15 mg tablet 15 mg PO DAILY Qty: 30 RF: 5 Lantus Solostar U-100 Insulin 100 unit/mL (3 mL) insulin pen 8 unit subcut HS RF: 0 melatonin 5 mg capsule 5 mg PO HS RF: 0 diphenhydramine HCl [Benadryl] 25 mg capsule 25 mg PO DAILY PRN (Reason: Allergy Symptoms) RF: 0 duloxetine 60 mg capsule,delayed release(DR/EC) 60 mg PO HS Qty: 90 RF: 3 acetaminophen [Tylenol Extra Strength] 500 mg tablet 1,000 mg PO HS RF: 0 benzonatate 200 mg capsule 200 mg PO TID PRN (Reason: Cough) RF: 0 alpha lipoic acid 100 mg Capsule 100 mg PO BID RF: 0 losartan 100 mg Tablet 100 mg PO QAM RF: 0 diclofenac sodium 1 % gel 2 g TOPICAL QID PRN (Reason: Pain) RF: 0 levothyroxine 137 mcg tablet 137 mcg PO DAILYBB RF: 0 Krames/Other Patient Handouts: Managing Type 2 Diabetes Admission Data Admit Date/Time: 09/20/20 13:19 Attending Provider: Gabino Caro Admit Provider: Sophie Valles Primary Care Provider: Dirk Cooper Other Providers: Milton Wolff [place] ; Ricci Price ; Salvador Mederos ; Chris Lopez Coding Level of Care Code D/C Day Management >30 mins Diagnoses Bilateral leg weakness R29.898 Toxic encephalopathy G92
--- NOTE | 2020-09-25 15:11 | Cardiology Progress Note ---
Date of Service September 25, 2020 Assessment & Plan (1) Atrial fibrillation with slow ventricular response: Patient is a 74-year-old female with complex constellation of underlying medical issues as noted in HPI. She has a history of longstanding paroxysmal atrial fibrillation previously controlled in sinus rhythm with antiarrhythmic therapy/Tikosyn. In the past she has been significantly symptomatic when in atrial fibrillation due to tachyarrhythmias. Current complaints of weakness and fatigue are association with newly observed (09/09/2020) recurrence of her atrial fibrillation though with slow ventricular response rate. This may not be the ultimate source of complaints but may easily be contributing. Underlying conduction system disease is present with past EKGs demonstrating bifascicular and trifascicular heart block. Recommendations: Patient now improved after adjustments in therapies would continue medications as per inpatient treatment. (2) Paroxysmal atrial fibrillation: Now persistent with low likelihood of returning to sinus rhythm continuing metoprolol for rate control. Digoxin and dofetilide discontinue (3) Bilateral leg weakness: (4) Sleep apnea: Will need ongoing care (5) Hyperparathyroidism: (6) Bifascicular bundle branch block: Admission and Anticipated Discharge Date Admission Date: September 20, 2020 Subjective Patient seen and examined telemetry reviewed. Heart rate predominantly in the 60s no bradycardia arrhythmias. She remains persistently in atrial fibrillation Blood pressure is better controlled on current therapy Physical Exam Constitutional: + obese; no acute distress ENMT: external ear and nose normal, oropharynx normal Neck: trachea midline, no thyromegaly + thick neck Respiratory: normal respiratory effort, lungs clear to auscultation Cardiovascular: Rate/Rhythm: + irregularly irregular Heart Sounds: normal S1 and normal S2; no gallop and no murmur Palpation: normal PMI Vessels: normal carotid upstroke and radial pulses present; no JVD and no carotid bruit Extremities: no edema Gastrointestinal (Abdomen): normal bowel sounds, soft, nontender, no hepatosplenomegaly Musculoskeletal: no cyanosis or clubbing, extremities motor strength 5/5 Skin: no rashes, warm and dry Neurologic: PERRL, EOMI, accommodation nl, no face palsy, no dysarthria Psychiatric: A+Ox3, euthymic affect Results & Data ([facility]) Vital Signs (Past 12 Hours) Vital Signs Temp Pulse Pulse Resp BP BP Pulse Ox 09/25/20 13:04 36.8 C 56 L 66 18 132/70 78 L 09/25/20 11:21 36.8 C 66 18 136/77 90 09/25/20 08:30 36.7 C 60 20 140/83 91 09/25/20 04:14 36.6 C 84 16 185/88 H 90
== END 2020-09-25 13:25 | DRG 947 ==
LOC: ED 18:32 → 3W 18:32 → SUATTDRO 22:37 → 3W 23:33 → SUATTDRO 09-20 13:19 → 2S 09-20 13:19

== ENCOUNTER 2022-10-26 06:45 | Inpatient (IN) ==
[2022-10-26] MEDS ORDERED: SODIUM CHLORIDE 0.9% 1000ML 1,000 ML IV ONE (07:37)
--- NOTE | 2022-10-26 07:44 | Emergency Department Note ---
Impression & Plan COVID-19, Acute urinary retention, Hypoxia ED Provider Note Name: DAVEY GARCIA Age: 76 Sex: F Arrives Via: Ambulance Informant:, , patient ED Provider: Eduardo Leger MD Chief Complaint: Weakness Impression: As per impressions above Medical Decision Makin-year-old female arrives for evaluation of weakness and mild confusion in the setting of cough and fatigue. Patient appears tired mildly unwell and dehydrated. Deep junky cough for the last few days. They do have home health aides who come into the house but no other known sick contacts. Work-up reveals a right perihilar mass versus infiltrate on chest x-ray in the setting of cough hypoxia and infectious symptoms empiric antibiotics were given after blood cultures lactate were obtained. Fortunately her lactate procalcitonin look pretty good. She does appear better after some IV hydration. COVID testing was positive for COVID-19. I do feel that this is an acute infectious COVID-19. W ith hypoxia she was given Decadron 10 mg IV. Given the findings on the chest x- ray I did opt to get CT of the chest with IV contrast. There was some delay to getting this done as there is an issue at lab getting chemistries back and thus her creatinine was delayed. CT of the chest fortunately does not reveal any large mass or obvious pneumonia. Suspect this is poorly recruited lung in the setting of viral inflammatory process. Symptoms are not consistent with PE. Hospitalist was consulted for further management. Prior Medical Record and Triage/Nursing Notes reviewed by Me External chart reviewed by me including previous discharge summaries Differentials:Infection, dehydration, metabolic abnormality, hypo/hyperglycemia, electrolyte disturbance, anemia, hypoxia, cardiac sources, intracerebral event, toxicologic, neurologic, as well as other pathologies. Vital Signs: reviewed and remarkable for hypoxia on room air Interventions: Nasal cannula O2, normal saline bolus, cefepime IV, Decadron 10 mg IV Labs:Reviewed and remarkable for COVID-positive multiple other labs reviewed Imagin view chest x-ray interpreted by me reveals a right perihilar infiltrate/mass. When compared to old chest x-ray this is new CT of the chest with IV contrast as per my informal interpretation does not reveal any large lobar infiltrate or mass there is some atelectasis at bases noted. See radiologist read for full final report EKG:As per my interpretation. Indication sepsis. A-fib 98 bpm with QTc of 413. There is no ectopy besides the A-fib. No evidence of ischemia. When compared to EKG of September 21, 2020 there is no significant change. Cardiac/Tele Monitoring: Cardiac Monitoring: An Order was placed for continuous cardiac monitoring. The monitor shows a rate of 90 with a A-fib rhythm. Consults:Hospitalist Plan: Disposition:Hospitalization. Condition: Fair History of Present Illness:76-year-old female arrives for evaluation of weakness. Patient with 3 to 4 days of worsening cough congestion fatigue. She started losing bladder control last night. She feels shaky and weak. Worse with ambulation. Better with rest. Denies any falls, trauma, injuries. Denies any chest pain. Cough is productive but she can actually bring anything up. Her noted some crackles on her lungs when listening to her lungs earlier today. She had a fever yesterday. No known sick contacts. Denies any urinary burning. Denies any abdominal pain back pain leg swelling rashes headache sore throat or other concerning signs or symptoms. No medication prior to arrival. Past History:See Below Home Medications:See Below Allergies:See Below Vitals:Blood Pressure: 153/109, Pulse 88, RR 22, T 37.6C, O2 89% on RA Physical Exam: GENERAL: Patient is unwell appearing and in tired distress. Dry appearing EYES: No scleral icterus, unremarkable pupils. ENT: Mucous membranes dry, no nasal congestion. RESPIRATORY: Bilateral lung crackles with expiratory wheeze noted CARDIOVASCULAR: Tachycardia during exam irregular.No murmurs, rubs, gallops appreciated. GASTROINTESTINAL: Abdomen soft, non-tender, no peritonitis. BACK: No midline tenderness, no CVA tenderness EXTREMITIES: Normal motion all extremities, no cyanosis, no edema. NEUROLOGIC: Alert and oriented, no acute motor or sensory deficits SKIN: No rash, no jaundice, no diaphoresis. PSYCH: Appropriate GCS: 15 ED Course: Times/Reassessments: Patient appears better on nasal cannula O2 and significantly better with some IV fluids. Agreeable to hospitalization as his is at bedside throughout Eduardo Leger MD Past Med/Surg History Medical History (Updated 10/27/22 @ 11:58 by Eduardo Leger MD) Acquired claw toe of left foot Acquired claw toe of right foot Acquired hallux valgus of right foot Allergic rhinitis Atrial fibrillation Callus Chest pain Chronic back pain CKD (chronic kidney disease), stage III Controlled type 2 diabetes mellitus with neurologic complication, with long-term current use of insulin Degenerative disc disease Diabetic peripheral neuropathy Dysesthesia Dysphagia Fall Familial tremor GERD (gastroesophageal reflux disease) Graves disease WITH RADIOACTIVE IODINE Hallux valgus (acquired), left foot Hypercalcemia Hyperlipidemia Hyperparathyroidism Hypertension Hypothyroidism Insomnia Loss of protective sensation of skin of deformed foot Microalbuminuria Morbid obesity Osteoarthritis Primary hyperparathyroidism Seborrheic keratosis Septicemia TREATED AT [facility] (BEGINNING OF 2017) AFFECTED RIGHT LEG. Sinus bradycardia Sleep apnea CPAP Toxic encephalopathy Type 2 diabetes mellitus with diabetic peripheral angiopathy without gangrene Surgical History Fusion of spine X3 L1-L5 History of adenoidectomy History of appendectomy LAP History of bilateral tubal ligation History of cataract surgery BILATERAL History of cholecystectomy LAP History of colonoscopy History of esophagogastroduodenoscopy (EGD) History of herniorrhaphy UMBILICAL REPAIR x 2 History of tonsillectomy History of total hip arthroplasty BILATERAL History of total knee replacement BILATERAL History of total shoulder replacement RIGHT Nausea and vomiting after administration of anesthetic agent Family History Father Family history of diabetes mellitus Arthritis Hypertension Stroke Lung disease Obesity Diabetes Mother Arthritis Diabetes Hypertension Stroke Obesity Depression Brother Depression Suicide Aunt Uterine cancer Grandfather (Maternal) Colorectal cancer Aunt Colorectal cancer Denies family history of Prostate cancer Myocardial infarction Breast cancer Social History Smoking Status: Never smoker Second Hand Exposure: No; Hx Alcohol Use: No Hx Substance Use: No Preferred Language: Albanian Communication Ability: Effective Visual Impairment: Limited Hearing Ability: Normal Network Solutions Architect Required: No Beliefs That Will Affect Care: None marital status: Current Living Situation: Spouse current occupational status: retired Feels Safe at Home: Yes Safety Concerns: Feels Safe At This Time Childhood Exposure to Second-Hand Smoke: Yes Dental Care, Regularly: Yes Physical Activity Frequency: 3-4 Times per Week Seatbelt Use: always Sunscreen Use: Yes Assistive Devices: Glasses Allergies Allergies Allergy/AdvReac Type Severity Reaction Status Date / Time Aminoglycosides Allergy Intermediate rash Verified 10/08/22 13:32 neomycin Allergy Intermediate RASH Verified 10/08/22 13:32 nickel Allergy Intermediate rash Verified 10/08/22 13:32 piroxicam Allergy Intermediate RASH Verified 10/08/22 13:32 polymyxin B Allergy Intermediate rash Verified 10/08/22 13:32 house dust Allergy Mild Sneezing Verified 10/08/22 13:32 oxycodone [From Roxicodone] AdvReac Mild Shakiness Verified 10/08/22 13:32 [id number] Reductase AdvReac Mild MUSCLE AND Verified 10/08/22 13:32 Inhibitor JOINT PAIN [Qizzezk-Vbe-Tqq Reductase Inhibitor] Home Meds Home Medications Medication Instructions Recorded Confirmed fluticasone propionate 50 1 spray intranasal DAILY PRN 06/05/20 10/26/22 mcg/actuation nasal allergy symptoms spray,suspension (Flonase Allergy Relief) ibuprofen 600 mg tablet 600 mg PO TID 05/28/21 10/26/22 CPAP Machine 07/29/21 10/08/22 furosemide 20 mg tablet 20 mg PO DAILY 09/15/21 10/26/22 metoprolol tartrate 50 mg tablet 25 mg PO BID 09/15/21 10/26/22 blood sugar diagnostic (OneTouch 02/26/22 10/08/22 Verio test strips) fluticasone propionate 110 1 puff inhalation BID PRN Wheezing 02/26/22 10/26/22 mcg/actuation HFA aerosol inhaler (Flovent HFA) alpha lipoic acid 100 mg capsule 300 mg PO BID 08/17/22 10/26/22 amlodipine 2.5 mg tablet 2.5 mg PO QAM 10/26/22 10/26/22 Previous Rx's Medication Instructions Recorded albuterol sulfate 90 mcg/actuation 1 - 2 puffs inhalation Q4H PRN 06/15/19 aerosol inhaler shortness of breath or wheezing #8.5 grams acetaminophen 500 mg tablet 1,000 mg PO Q8 PRN fever or pain 09/25/20 #30 tabs thiamine HCl (vitamin B1) 50 mg 50 mg PO QAM #30 tabs 09/25/20 tablet (Vitamin B-1) cinacalcet 30 mg tablet (Sensipar) 30 mg PO DAILY #90 tabs 10/28/20 ipratropium 20 mcg-albuterol 100 1 puff inhalation Q4H PRN 10/28/20 mcg/actuation mist for inhalation shortness of breath or wheezing #4 (Combivent Respimat) grams 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 #1 ea 12/05/20 amlodipine 5 mg tablet 5 mg PO PM #90 tabs 05/13/21 insulin glargine 100 unit/mL (3 6 unit (0.06 mL) subcut HS 30 days 11/18/21 mL) subcutaneous pen (Lantus #3 mL Solostar U-100 Insulin) losartan 100 mg tablet 100 mg PO QAM #90 tabs 02/27/22 fenofibrate nanocrystallized 145 145 mg PO DAILY #90 tabs 05/26/22 mg tablet hydroxyzine HCl 25 mg tablet 25 - 50 mg PO HS PRN itching #180 06/19/22 tabs levothyroxine 150 mcg tablet 150 mcg PO DAILYBB #90 tabs 06/24/22 hydralazine 25 mg tablet 25 mg PO TID #270 tabs 07/07/22 rabeprazole 20 mg tablet,delayed 20 mg PO DAILY #30 tabs 07/20/22 release (AcipHex) rivaroxaban 15 mg tablet 15 mg PO DAILY #30 tabs 07/20/22 metformin 1,000 mg tablet See Rx Instructions .Route 07/22/22 .COMPLEX #180 tabs duloxetine 60 mg capsule,delayed 60 mg PO HS #90 caps 08/05/22 release naloxone 4 mg/actuation nasal 1 spray intranasal Q2M PRN opioid 08/13/22 spray (Narcan) overdose #2 ea gabapentin 800 mg tablet 800 mg PO TID #90 tabs 08/17/22 ondansetron 4 mg disintegrating 4 mg PO Q8H PRN nausea and 08/17/22 tablet vomiting #30 tabs trazodone 50 mg tablet 50 mg PO DAILY #30 tabs 08/20/22 chlorzoxazone 500 mg tablet See Rx Instructions .Route 09/08/22 .COMPLEX #90 tabs pen needle, diabetic 32 gauge x #100 ea 09/20/22" (BD Ultra-Fine Hsanel Pen Needle) hydrocodone 7.5 mg-acetaminophen 1 tab PO TID PRN pain #42 tabs 10/23/22 325 mg tablet Results & Data (ED) Vital Signs Vital Signs - 24 hr 10/26/22 06:47 10/26/22 06:55 10/26/22 07:20 Temperature 37.6 C H Temperature Source Oral Pulse Rate 98 H 88 Respiratory Rate 22 Respiratory Depth Normal Blood Pressure 153/109 H Blood Pressure Mean 123 Pulse Oximetry 89 L 89 L Oxygen Delivery Method Room Air Room Air Nasal Cannula Sepsis Recent Fever Within 48 Hours Yes Sepsis New/Unexplained Change in Mental Status No Sepsis Action Taken by Nursing No Action Required Oxygen Flow Rate - Titration 2 Pulse Oximetry Post Tiitration 93 Laboratory Data 10/26/22 07:20 10/26/22 07:20 Lab Results 10/26/22 10/26/22 10/26/22 Range/Units 07:20 07:20 07:20 WBC 5.80 (4.8-10.8) K/ul RBC 4.19 L (4.20-5.40) M/uL Hgb 12.0 (12.0-16.0) g/dl Hct 37.6 (37.0-47.0) % MCV 89.7 (80.0-100.0) fL MCH 28.6 (25.0-34.0) pg MCHC 31.9 L (32.0-36.0) g/dL RDW Std Deviation 45.2 (36.4-46.3) fL RDW Coeff of Jeanette 13.9 (11.5-14.5) % Plt Count 247 (130-400) K/uL MPV 9.9 (9.4-12.4) fL Immature Gran % (Auto) 1.2 % Neut % (Auto) 60.2 % Lymph % (Auto) 15.5 % [place] % (Auto) 21.7 % Eos % (Auto) 0.7 % Baso % (Auto) 0.7 % Neut # (Auto) 3.49 (1.40-6.50) K/uL Lymph # (Auto) 0.90 L (1.2-3.4) K/uL [place] # (Auto) 1.26 H (0.11-0.59) K/uL Eos # (Auto) 0.04 (0-0.50) K/uL Baso # (Auto) 0.04 (0-0.2) K/uL Immature Gran # (Auto) 0.07 (0.01-0.20) K/uL PT (9.0-12.0) Seconds INR (0.9-1.1) APTT (21.0-31.0) Seconds PTT Ratio Sodium 139 (136-145) mmol/L Potassium 4.0 (3.5-5.1) mmol/L Chloride 103 (98-107) mmol/L Carbon Dioxide 26 (21-32) mmol/L Anion Gap 10 (3-11) BUN 26 H (6-23) mg/dl Creatinine 1.27 H (0.6-1.2) mg/dl Est Cr Clr Drug Dosing Not Reportable Est GFR ( Amer) 47.5 ml/min Est GFR (Non-Af Amer) 41.0 ml/min BUN/Creatinine Ratio 20.5 H (10-20) Glucose 97 (70-99(Fasting)) mg/dl Lactate (0.4-2.0) mmol/L Calcium 9.3 (8.6-10.3) mg/dl Total Bilirubin 0.4 (0.2-1.0) mg/dl AST 22 (13-39) U/L ALT 20 (7-52) U/L Alkaline Phosphatase 54 (34-104) U/L Total Protein 6.9 (6.0-8.3) gm/dl Albumin 4.0 (3.4-5.0) gm/dl Globulin 2.9 (2.5-4.0) gm/dl Albumin/Globulin Ratio 1.4 (0.9-2) Procalcitonin (0-0.5) ng/ml TSH 2.943 (0.300-4.500) uIu/ml 10/26/22 10/26/22 10/26/22 Range/Units 07:20 07:47 07:56 WBC (4.8-10.8) K/ul RBC (4.20-5.40) M/uL Hgb (12.0-16.0) g/dl Hct (37.0-47.0) % MCV (80.0-100.0) fL MCH (25.0-34.0) pg MCHC (32.0-36.0) g/dL RDW Std Deviation (36.4-46.3) fL RDW Coeff of Jeanette (11.5-14.5) % Plt Count (130-400) K/uL MPV (9.4-12.4) fL Immature Gran % (Auto) % Neut % (Auto) % Lymph % (Auto) % [place] % (Auto) % Eos % (Auto) % Baso % (Auto) % Neut # (Auto) (1.40-6.50) K/uL Lymph # (Auto) (1.2-3.4) K/uL [place] # (Auto) (0.11-0.59) K/uL Eos # (Auto) (0-0.50) K/uL Baso # (Auto) (0-0.2) K/uL Immature Gran # (Auto) (0.01-0.20) K/uL PT 10.9 (9.0-12.0) Seconds INR 1.0 (0.9-1.1) APTT 28.6 (21.0-31.0) Seconds PTT Ratio 1.0 Sodium (136-145) mmol/L Potassium (3.5-5.1) mmol/L Chloride (98-107) mmol/L Carbon Dioxide (21-32) mmol/L Anion Gap (3-11) BUN (6-23) mg/dl Creatinine (0.6-1.2) mg/dl Est Cr Clr Drug Dosing Est GFR ( Amer) ml/min Est GFR (Non-Af Amer) ml/min BUN/Creatinine Ratio (10-20) Glucose (70-99(Fasting)) mg/dl Lactate 0.9 (0.4-2.0) mmol/L Calcium (8.6-10.3) mg/dl Total Bilirubin (0.2-1.0) mg/dl AST (13-39) U/L ALT (7-52) U/L Alkaline Phosphatase (34-104) U/L Total Protein (6.0-8.3) gm/dl Albumin (3.4-5.0) gm/dl Globulin (2.5-4.0) gm/dl Albumin/Globulin Ratio (0.9-2) Procalcitonin < 0.05 (0-0.5) ng/ml TSH (0.300-4.500) uIu/ml Administered Medications Acetaminophen (Acetaminophen 500 Mg Tab) 1,000 mg PO Q8 PRN PRN Reason: fever or pain Stop: 11/25/22 13:22 Last Admin: 10/26/22 14:28 Dose: 1,000 mg Documented By: CAMILLE Amlodipine Besylate (Amlodipine Besylate 5 Mg Tab) 2.5 mg PO QAM FRAN Stop: 11/26/22 08:59 Last Admin: 10/27/22 08:24 Dose: 2.5 mg Documented By: NIRAJ Amlodipine Besylate (Amlodipine Besylate 5 Mg Tab) 5 mg PO PM FRAN Stop: 11/25/22 20:59 Last Admin: 10/26/22 20:29 Dose: 5 mg Documented By: EDITH Chlorzoxazone (Chlorzoxazone 500 Mg Tab) 500 mg PO TID PRN PRN Reason: Leg pain Stop: 11/25/22 13:22 Last Admin: 10/27/22 10:12 Dose: 500 mg Documented By: Admin: 10/27/22 01:14 Dose: 500 mg Documented By: EDITH Duloxetine HCl (Duloxetine Hcl 60 Mg Cap) 60 mg PO HS FRAN Stop: 11/25/22 20:59 Last Admin: 10/26/22 20:30 Dose: 60 mg Documented By: EDITH Fenofibrate (Fenofibrate Nanocrystallized 145 Mg Tablet) 145 mg PO DAILY FRAN Stop: 11/26/22 08:59 Last Admin: 10/27/22 08:24 Dose: 145 mg Documented By: NIRAJ Furosemide (Furosemide 20 Mg Tab) 20 mg PO DAILY FRAN Stop: 11/26/22 08:59 Last Admin: 10/27/22 08:24 Dose: 20 mg Documented By: NIRAJ Gabapentin (Gabapentin 800 Mg Tab) 800 mg PO BID FRAN Stop: 11/25/22 20:59 Last Admin: 10/27/22 08:24 Dose: 800 mg Documented By: Admin: 10/26/22 20:30 Dose: 800 mg Documented By: EDITH Hydralazine HCl (Hydralazine Hcl 25 Mg Tab) 25 mg PO TID FRAN Stop: 11/25/22 13:59 Last Admin: 10/27/22 08:25 Dose: 25 mg Documented By: Admin: 10/26/22 20:29 Dose: 25 mg Documented By: Admin: 10/26/22 14:26 Dose: 25 mg Documented By: CAMILLE Dexamethasone 6 mg/ Syringe 1.5 mls @ 1 mls/min IV DAILY FRAN Stop: 11/06/22 08:59 Last Admin: 10/27/22 08:23 Dose: 1 mls/min Documented By: NIRAJ Insulin Aspart (Insulin Aspart Per Unit Charge) 0 units SC ACHS FRAN Stop: 11/25/22 13:44 Last Admin: 10/27/22 08:20 Dose: 2 units Documented By: NIRAJ Co-signed By: LINDY Admin: 10/26/22 20:45 Dose: 4 units Documented By: EDITH Co-signed By: MATTIE Admin: 10/26/22 17:39 Dose: 3 units Documented By: CAMILLE Co-signed By: LISA Admin: 10/26/22 14:26 Dose: Not Given Documented By: CAMILLE Insulin Glargine (Lantus Per Unit Charge) 5 units SQ HS [facility] Stop: 11/25/22 20:59 Last Admin: 10/26/22 20:46 Dose: 5 units Documented By: EDITH Co-signed By: MATTIE Levothyroxine Sodium (Levothyroxine Sodium 150 Mcg Tablet) 150 mcg PO DAILYBB [facility] Stop: 11/26/22 06:29 Last Admin: 10/27/22 06:10 Dose: 150 mcg Documented By: EDITH Losartan Potassium (Losartan Potassium 50 Mg Tab) 100 mg PO QAM [facility] Stop: 11/26/22 08:59 Last Admin: 10/27/22 08:24 Dose: 100 mg Documented By: NIRAJ Metoprolol Tartrate (Metoprolol Tartrate 25 Mg Tab) 25 mg PO BID [facility] Stop: 11/25/22 20:59 Last Admin: 10/27/22 08:25 Dose: 25 mg Documented By: Admin: 10/26/22 20:28 Dose: 25 mg Documented By: EDITH Ondansetron HCl (Ondansetron 4 Mg Od Tab) 4 mg PO Q8H PRN PRN Reason: nausea and vomiting Stop: 11/25/22 13:22 Last Admin: 10/27/22 10:12 Dose: 4 mg Documented By: Admin: 10/26/22 20:56 Dose: 4 mg Documented By: EDITH Rivaroxaban (Rivaroxaban 15 Mg Tab) 15 mg PO HS [facility] Stop: 11/25/22 20:59 Last Admin: 10/26/22 20:29 Dose: 15 mg Documented By: EDITH Thiamine HCl (Thiamine Hcl 50 Mg Tablet) 50 mg PO QAM FRAN Stop: 11/26/22 08:59 Last Admin: 10/27/22 08:25 Dose: 50 mg Documented By: NIRAJ Trazodone HCl (Trazodone Hcl 50 Mg Tab) 50 mg PO DAILY FRAN Stop: 11/26/22 08:59 Last Admin: 10/27/22 08:25 Dose: 50 mg Documented By: NIRAJ Discontinued Medications Amlodipine Besylate (Amlodipine Besylate 5 Mg Tab) 5 mg PO NOW ONE Stop: 10/26/22 11:39 Last Admin: 10/26/22 12:13 Dose: 5 mg Documented By: NH Dexamethasone Sodium Phosphate (DexamethasonePf 10 Mg/Ml Vial) 10 mg IV NOW ONE Stop: 10/26/22 09:14 Last Admin: 10/26/22 09:27 Dose: 10 mg Documented By: JUAN Furosemide (Furosemide Inj 20 Mg/2 Ml Vial) 20 mg IV ONE ONE Stop: 10/26/22 11:39 Last Admin: 10/26/22 12:14 Dose: 20 mg Documented By: JUAN Furosemide (Furosemide 40 Mg/4 Ml Vial) Confirm Administered Dose 40 mg IV .STK- MED ONE Stop: 10/26/22 12:03 Last Admin: 10/26/22 12:13 Dose: Not Given Documented By: JUAN Hydralazine HCl (Hydralazine Hcl 20 Mg/Ml Vial) 5 mg IV NOW ONE Stop: 10/26/22 09:15 Last Admin: 10/26/22 09:27 Dose: 5 mg Documented By: JUAN Hydralazine HCl (Hydralazine Hcl 25 Mg Tab) 25 mg PO NOW STA Stop: 10/26/22 11:15 Last Admin: 10/26/22 11:31 Dose: 25 mg Documented By: JUAN Sodium Chloride (Nss 1000ml) 1,000 mls @ 999 mls/hr IV .Q1H1M ONE Stop: 10/26/22 08:37 Last Infusion: 10/26/22 09:21 Dose: 0 mls/hr Documented By: Admin: 10/26/22 07:54 Dose: 999 mls/hr Documented By: JUAN Cefepime HCl (Maxipime) 2,000 mg in 20 mls @ 5 mls/min IV NOW STA Stop: 10/26/22 09:01 Last Admin: 10/26/22 09:11 Dose: 5 mls/min Documented By: JUAN Remdesivir 200 mg/ Sodium (Chloride) 250 mls @ 125 mls/hr IV ONE STA; Protocol Stop: 10/26/22 14:36 Last Infusion: 10/26/22 16:26 Dose: 0 mls/hr Documented By: Admin: 10/26/22 14:26 Dose: 125 mls/hr Documented By: CAMILLE Ioversol (Optiray 320 100ml) 83 ml IV ONCE ONE Stop: 10/26/22 10:27 Last Admin: 10/26/22 10:28 Dose: 83 ml Documented By: JADIEL Metoprolol Tartrate (Metoprolol Tartrate 25 Mg Tab) 25 mg PO ONE ONE Stop: 10/26/22 11:16 Last Admin: 10/26/22 11:31 Dose: 25 mg Documented By: JUAN Discharge Plan Visit Data Chief Complaint: Weakness Stated Complaint: WEAKNESS ED Provider: Eduardo Leger Discharge Problem: COVID-19, Acute urinary retention, Hypoxia Patient Disposition: Admitted As Inpatient Discharge Instructions Interventions: ED Discharge Assessment Last Done: 10/26/22 12:41
--- NOTE | 2022-10-26 08:02 | XRay Report ---
XR chest 1V portable CLINICAL HISTORY: weakness TECHNIQUE: Single frontal radiograph of the chest was obtained. Comparison: Comparison is made to chest radiograph 03/10/2022 FINDINGS: Left shoulder arthroplasty is seen. Cardiomegaly is noted. The aortic arch is calcified. There is a p rominent right hilar density. No evidence of pleural effusion or pneumothorax. IMPRESSION: Prominent right hilar density may represent pulmonary vascular congestion, but underlying mediastinal mass cannot be excluded. CT chest is recommended if no recent outside hospital exams are available. ACT 112: Positive. There are findings on this exam that require communication between the performing entity and the patient following Patient Test Result Information Act ([place] Act 112) guidelines. Electronically signed by: Lito Mckeon M.D. 10/26/2022 8:00 AM
[2022-10-26 08:08] LABS: Basophils # (auto) 0.04 K/uL (0-0.2); Basophils % (auto) 0.7 %; Eosinophils # (auto) 0.04 K/uL (0-0.50); Eosinophils % (auto) 0.7 %; Hematocrit (blood only) 37.6 % (37.0-47.0); Immature Granulocytes # (auto) 0.07 K/uL (0.01-0.20); Immature Granulocytes % (auto) 1.2 %; Lymphocytes % (auto) 15.5 %; Mean Corpuscular Hemoglobin 28.6 pg (25.0-34.0); Mean Corpuscular Hgb Conc 31.9 g/dL (32.0-36.0); Mean Corpuscular Volume 89.7 fL (80.0-100.0); Mean Platelet Volume 9.9 fL (9.4-12.4); Monocytes # (auto) 1.26 K/uL (0.11-0.59); Monocytes % (auto) 21.7 %; Neutrophils # (auto) 3.49 K/uL (1.40-6.50); Neutrophils % (auto) 60.2 %; Platelet Count 247 K/uL (130-400); RDW Coefficient of Variation 13.9 % (11.5-14.5); RDW Standard Deviation 45.2 fL (36.4-46.3); Red Blood Count 4.19 M/uL (4.20-5.40)
[2022-10-26 08:56] LABS: Influenza A virus by PCR Negative (Neg); Influenza B virus by PCR Negative (Neg); RSV by PCR Negative (Neg)
[2022-10-26] MEDS ORDERED: CEFEPIME 2,000 MG/20 ML VIAL IV STA (08:58)
[2022-10-26 09:11] LABS: SARS CoV2 RNA(COVID-19) Ceph POSITIVE (Negative)
[2022-10-26] MEDS ORDERED: dexAMETHasone**PF** 10 MG/ML VIAL IV ONE (09:13)
[2022-10-26] MEDS ORDERED: hydrALAZINE HCL 20 MG/ML VIAL IV ONE (09:14)
[2022-10-26 09:36] LABS: Appearance Urine Clear (Clear); Bacteria Urine Automated Negative (Negative); Bilirubin Urine Negative (Negative); Blood Urine Negative (Negative); Cast Urine Automated 0 /lpf (0-5); Color Urine Yellow; Epithelial Cell Urine Auto 0-5 /lpf (0-5); Glucose Urine UA Negative (Negative); Ketones Urine Negative (Negative); Leukocyte Esterase Urine Negative (Negative); Nitrite Urine Negative (Negative); RBC Urine Automated 0-4 /hpf (0-4); Specific Gravity Urine 1.014 (1.000-1.030); Urobilinogen Urine Negative (Negative); WBC Urine Automated 0 /hpf (0-5); pH Urine 7.5 (4.5-7.5)
[2022-10-26 09:43] LABS: Protein Urine Trace (Negative)
[2022-10-26 09:45] LABS: Anion Gap 10 (3-11); Bilirubin,Total 0.4 mg/dl (0.2-1.0); Calcium 9.3 mg/dl (8.6-10.3); Carbon Dioxide 26 mmol/L (21-32); Chloride 103 mmol/L (98-107); Sodium 139 mmol/L (136-145)
[2022-10-26 09:51] LABS: Alanine Aminotransferase 20 U/L (7-52); Albumin Globulin Ratio 1.4 (0.9-2); Alkaline Phosphatase 54 U/L (34-104); Aspartate Aminotransferase 22 U/L (13-39); BUN Creatinine Ratio 20.5 (10-20); Blood Urea Nitrogen 26 mg/dl (6-23); Est GFR (African American) 47.5 ml/min; Globulin 2.9 gm/dl (2.5-4.0); Glucose 97 mg/dl (70-99(Fasting)); Total Protein 6.9 gm/dl (6.0-8.3)
[2022-10-26] MEDS ORDERED: OPTIRAY 320 100ml IV ONE (10:26)
--- NOTE | 2022-10-26 10:54 | CT Scan Report ---
CT OF THE CHEST WITH IV CONTRAST CLINICAL HISTORY: Right chest mass. COMPARISON STUDY: Chest radiographs March 10, 2022 and October 26, 2022. TECHNIQUE: Following IV administration of 83 mL of Optiray, helical axial images of the chest were o btained. Sagittal and coronal reconstructions were viewed as well as maximal intensity projections o n an independent 3-D workstation. Automated exposure control was utilized for the study. A dose low ering technique was utilized adhering to the principles of ALARA. CT DOSE: 704.43 mGycm FINDINGS: Prominent subcarinal lymph node measures 1 cm short axis diameter and is likely benign. No te is made of moderate cardiomegaly and coronary artery calcification. There is mild dilatation of th e ascending aorta, measuring 4.1 cm. There is dilatation of the central pulmonary arteries. Main pulm onary artery measures 3.8 cm in caliber. Right hilar prominence on chest radiograph from earlier toda y is due to pulmonary vessels. There is no pneumothorax or pleural effusion. There is no consolidatio n to suggest pneumonia. Mild subpleural reticulation is most pronounced within the right middle lobe and right lower lobe. Central airways are patent. A few small perifissural nodules measure up to 7 mm . These are likely benign. There are no acute fractures within the bony thorax. Hepatic steatosis is noted. Nodularity of the left adrenal gland is similar to prior abdominal CT. This is benign. Postope rative findings within lumbar spine are partially imaged. IMPRESSION: 1. No acute process within the chest. 2. Right hilar prominence on chest radiograph from earlier today was due to pulmonary vessels. 3. Moderate cardiomegaly with mild dilatation of the ascending aorta and dilatation of the central pu lmonary arteries. 4. No consolidation. ACT 112: Negative or not required by law. Electronically signed by: Kd Maguire M.D. 10/26/2022 10:52 AM
--- NOTE | 2022-10-26 11:02 | History & Physical Report ---
Date of Service October 26, 2022 Assessment & Plan (1) COVID-19: Plan: Shortness of breath, weakness 2/2 COVID-19 with hypoxic respiratory failure requiring 2 L of oxygen COVID-positive on admission. Requiring 2 L of nasal cannula oxygen. Flu/RSV negative No leukocytosis, hemoglobin 12, platelet 247 Creatinine baseline approximately 1.3, admitting creatinine 1.27. Elevated BUN/creatinine ratio. eGFR 41, baseline appears to fluctuate around 3345. Lactate normal on admission No transaminitis Procalcitonin normal TSH normal - CT-C: 1. No acute process within the chest. 2. Right hilar prominence on chest radiograph from earlier today was due to pulmonary vessels. 3. Moderate cardiomegaly with mild dilatation of the ascending aorta and dilatation of the central pulmonary arteries. 4. No consolidation. Subcarinal lymph node 1 cm, likely benign. Mild dilatation of ascending aorta and central pulmonary arteries, no pneumothorax, no pleural effusion. No consolidation consistent with pneumonia. Reviewed risks/benefits of remdesivir with patient and her son at bedside. Given comorbidities, on risk/benefit discussion will start remdesivir and trend labs daily. Follow for bleeding, coagulation panel changes, renal function change, and transaminitis. No evidence of superimposed pneumonia on CT, Pro-Lucas negative, no leukocytosis. We will treat as viral pneumonia, defer additional antibiotics at this time. Continue Lasix, converted to IV for one-time dose and then continuous p.o. in the setting of increased pulmonary vascular congestion, some salt intake, mild ankle edema. Dexamethasone 6 mg daily course x10 days. (2) Acute urinary retention: Plan: Acute urinary retention History of constipation, patient also recently increased hydrocodone from 5 to 7.5 mg dosing KUB pending for stool burden, will use combined bowel regimen MiraLAX and bisacodyl suppository if significantly increased Hydrocodone dose reduced to 5 mg as third line breakthrough Kirk in place due to retention greater than 800 with second episode of residual, voiding trial in 24 hours UA is not infected appearing (3) Atrial fibrillation: Plan: Atrial fibrillation Continued on metoprolol 25 mg twice daily Continue Xarelto 15 mg daily. Previously on dofetilide however this was discontinued at prior cardiology visit for rate control strategy benefits Admitting EKG: A-fib, QTc 413, LAD, no acute T wave inversion or ST segment changes Patient did not take her morning medications, these have been ordered Is running with rates 100s occasionally up to 110s/120s while in room. Oral rate control given, will monitor initially on PCU in case IV rate control/antihypertensives are required, downgrade if doing well (4) Diastolic CHF: Plan: dCHF with preserved ejection fraction, no acute exacerbation No orthopnea. No overt pulmonary edema, some lower ankle edema. No elevated creatinine. Prefer dry status in the setting of COVID, will give 1 dose of IV Lasix and then continue home dose BNP is pending Low-salt diet Daily weights (5) CKD (chronic kidney disease), stage III: Plan: Renal function at baseline on admission, trend BMP daily Admitting creatinine 1.27 Renally dose medications as needed, EGFR is not less than 30 (6) Type 2 diabetes mellitus with diabetic peripheral angiopathy without gangrene: Plan: Type II DM On metformin/glargine TELESALES ADVISOR. Deferred SGLT2 addition in the past, patient prefers simplified regimen. Last A1c 6.1% well controlled 08/17/2022 Significantly different weight-based versus basal based dosing parameters. Will place on basal bolus with conservative weight-based parameters, pharmacy consulted for adjustments in the setting of significant difference and with steroid use. Goal BSG 165709, glucose checks AC/at bedtime Chronic lumbar back pain w radiculopathy Was as outpatient with epidural steroid injections with about 80% relief at last visit 09/2022 Cymbalta 60 mg daily. Patient does get significant relief which minimizes her narcotic use with NSAIDs, will continue ibuprofen 3 times daily and hold if evidence of NATASHA Continue gabapentin 800 mg morning, 300 mg noon, 800 mg evening Hydrocodone adjusted to 5 mg oxycodone third-line, dose reduced as suspect this was contributing to acute and new urinary retention with recent increase in dose as outpatient Hypothyroidism Continue Synthroid 150 mcg daily TSH wnl Hyperlipidemia Continue fenofibrate GERD Probiotic daily, rabeprazole continued Recent GERD symptoms not present Insomnia Hydroxyzine 25 mg nightly, trazodone as needed. If patient sedated, trial conversion hydroxyzine to melatonin Hypercalcemia, hyperparathyroidism Deferred parathyroidectomy, serial monitoring, calcium trended DVT PPx: Anticoagulated, continue Xarelto Diet: Heart healthy, low-salt, DM 2 Disposition: PCU for availability of IV rate control/antihypertensives CODE STATUS: Full code (7) Hypertension: (8) Hyperlipidemia: (9) Hypothyroidism: (10) Atrial fibrillation with slow ventricular response: (11) GERD (gastroesophageal reflux disease): History of Present Illness Primary Care Provider: Dirk Cooper DO Ni is a 76-year-old female with a past medical history of toxic goiter, ankylosing spondylitis, polyneuropathy, type II DM with stage III CKD, elevated BMI, hypertension, OA, TIERRA, hyperlipidemia, spinal stenosis, asthma, atrial fibrillation on anticoagulation, diastolic heart failure who presents with 3 to 4 days of worsening cough, congestion, fatigue with associated weakness and overall shakiness. Ni is seen for a productive cough and shortness of breath. She is in the bedside with her present. She reports 2-3 days of cough, shortness of breath. Shortness of breath is much worse walking around, improve but does not resolve with rest. Denies orthopnea. No new leg swelling. She has had some increased sputum production. Normal dry weight is around 280lbs but isn't sure. Notes bathroom scales have trouble weighting to some tremor when trying to weigh herself at home. NO chest pain, no chest pressure. No lightheadedness, no dizziness. No falls. Endorses new urinary incontinence over the weekend, with cath here for 800 cc of urine and continued retention requiring Kirk placement. Patient did recently increase her hydrocodone from 5 to 7.5 mg. No other medication change. Has felt overall weak, and harder to get up and walk around at home but no focal weakness. Endorses neuropathy mostly in her feet which spreads up to the mid calf, unchanged+chronic constipation Meds: Reviewed at bedside. amlodipine 2.5mg, 800mg gabapending, 25mg hydralazine, PPI 20mg, 20mg lasix,metoprolol 25 (at noon and bedtime), cinacalet 2pm, 1g metformin, xarelto pm, and 145mcg fenofibrate at noon. 5mg hydrocodone PRN up to TID for pain. 2x tylenol in the AM. 9pm 1g metforming, 800mg gabapentin, 60mg duloxetine, 5mg amlodipine Full Code. No tobacco/etoh/rec drug use. Allergies Allergy/AdvReac Type Severity Reaction Status Date / Time Aminoglycosides Allergy Intermediate rash Verified 10/08/22 13:32 neomycin Allergy Intermediate RASH Verified 10/08/22 13:32 nickel Allergy Intermediate rash Verified 10/08/22 13:32 piroxicam Allergy Intermediate RASH Verified 10/08/22 13:32 polymyxin B Allergy Intermediate rash Verified 10/08/22 13:32 house dust Allergy Mild Sneezing Verified 10/08/22 13:32 oxycodone [From Roxicodone] AdvReac Mild Shakiness Verified 10/08/22 13:32 Uidpuge-LVI-CpH Reductase AdvReac Mild MUSCLE AND Verified 10/08/22 13:32 Inhibitor JOINT PAIN [Sblcvdh-Ipy-Enj Reductase Inhibitor] Home Medications Medication Instructions Recorded Confirmed Type albuterol sulfate 90 mcg/actuation 1 - 2 puffs inhalation Q4H PRN 06/15/19 10/26/22 Rx aerosol inhaler shortness of breath or wheezing #8.5 grams fluticasone propionate 50 1 spray intranasal DAILY PRN 06/05/20 10/26/22 History mcg/actuation nasal allergy symptoms spray,suspension (Flonase Allergy Relief) acetaminophen 500 mg tablet 1,000 mg PO Q8 PRN fever or pain 09/25/20 10/26/22 Rx #30 tabs thiamine HCl (vitamin B1) 50 mg 50 mg PO QAM #30 tabs 09/25/20 10/26/22 Rx tablet (Vitamin B-1) cinacalcet 30 mg tablet (Sensipar) 30 mg PO DAILY #90 tabs 10/28/20 10/26/22 Rx ipratropium 20 mcg-albuterol 100 1 puff inhalation Q4H PRN 10/28/20 10/26/22 Rx mcg/actuation mist for inhalation shortness of breath or wheezing #4 (Combivent Respimat) grams 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 #1 ea 12/05/20 10/08/22 Rx amlodipine 5 mg tablet 5 mg PO PM #90 tabs 05/13/21 10/26/22 Rx ibuprofen 600 mg tablet 600 mg PO TID 05/28/21 10/26/22 History CPAP Machine 07/29/21 10/08/22 History furosemide 20 mg tablet 20 mg PO DAILY 09/15/21 10/26/22 History metoprolol tartrate 50 mg tablet 25 mg PO BID 09/15/21 10/26/22 History insulin glargine 100 unit/mL (3 6 unit (0.06 mL) subcut HS 30 days 11/18/21 10/26/22 Rx mL) subcutaneous pen (Lantus #3 mL Solostar U-100 Insulin) blood sugar diagnostic (OneTouch 02/26/22 10/08/22 History Verio test strips) fluticasone propionate 110 1 puff inhalation BID PRN Wheezing 02/26/22 10/26/22 History mcg/actuation HFA aerosol inhaler (Flovent HFA) losartan 100 mg tablet 100 mg PO QAM #90 tabs 02/27/22 10/26/22 Rx fenofibrate nanocrystallized 145 145 mg PO DAILY #90 tabs 05/26/22 10/26/22 Rx mg tablet hydroxyzine HCl 25 mg tablet 25 - 50 mg PO HS PRN itching #180 06/19/22 10/26/22 Rx tabs levothyroxine 150 mcg tablet 150 mcg PO DAILYBB #90 tabs 06/24/22 10/26/22 Rx hydralazine 25 mg tablet 25 mg PO TID #270 tabs 07/07/22 10/26/22 Rx rabeprazole 20 mg tablet,delayed 20 mg PO DAILY #30 tabs 07/20/22 10/26/22 Rx release (AcipHex) rivaroxaban 15 mg tablet 15 mg PO DAILY #30 tabs 07/20/22 10/26/22 Rx metformin 1,000 mg tablet See Rx Instructions .Route 07/22/22 10/26/22 Rx .COMPLEX #180 tabs duloxetine 60 mg capsule,delayed 60 mg PO HS #90 caps 08/05/22 10/26/22 Rx release naloxone 4 mg/actuation nasal 1 spray intranasal Q2M PRN opioid 08/13/22 10/26/22 Rx spray (Narcan) overdose #2 ea alpha lipoic acid 100 mg capsule 300 mg PO BID 08/17/22 10/26/22 History gabapentin 800 mg tablet 800 mg PO TID #90 tabs 08/17/22 10/26/22 Rx ondansetron 4 mg disintegrating 4 mg PO Q8H PRN nausea and 08/17/22 10/26/22 Rx tablet vomiting #30 tabs trazodone 50 mg tablet 50 mg PO DAILY #30 tabs 08/20/22 10/26/22 Rx chlorzoxazone 500 mg tablet See Rx Instructions .Route 09/08/22 10/26/22 Rx .COMPLEX #90 tabs pen needle, diabetic 32 gauge x #100 ea 09/20/22 10/08/22 Rx 5/32" (BD Ultra-Fine Shanel Pen Needle) hydrocodone 7.5 mg-acetaminophen 1 tab PO TID PRN pain #42 tabs 10/23/22 10/26/22 Rx 325 mg tablet amlodipine 2.5 mg tablet 2.5 mg PO QAM 10/26/22 10/26/22 History Past Med/Surg History Medical History (Updated 10/26/22 @ 12:38 by Thom Acosta MD) Acquired claw toe of left foot Acquired claw toe of right foot Acquired hallux valgus of right foot Allergic rhinitis Atrial fibrillation Callus Chest pain Chronic back pain CKD (chronic kidney disease), stage III Controlled type 2 diabetes mellitus with neurologic complication, with long-term current use of insulin Degenerative disc disease Diabetic peripheral neuropathy Dysesthesia Dysphagia Fall Familial tremor GERD (gastroesophageal reflux disease) Graves disease WITH RADIOACTIVE IODINE Hallux valgus (acquired), left foot Hypercalcemia Hyperlipidemia Hyperparathyroidism Hypertension Hypothyroidism Insomnia Loss of protective sensation of skin of deformed foot Microalbuminuria Morbid obesity Osteoarthritis Primary hyperparathyroidism Seborrheic keratosis Septicemia TREATED AT [facility] (BEGINNING OF 2017) AFFECTED RIGHT LEG. Sinus bradycardia Sleep apnea CPAP Toxic encephalopathy Type 2 diabetes mellitus with diabetic peripheral angiopathy without gangrene Surgical History Fusion of spine X3 L1-L5 History of adenoidectomy History of appendectomy LAP History of bilateral tubal ligation History of cataract surgery BILATERAL History of cholecystectomy LAP History of colonoscopy History of esophagogastroduodenoscopy (EGD) History of herniorrhaphy UMBILICAL REPAIR x 2 History of tonsillectomy History of total hip arthroplasty BILATERAL History of total knee replacement BILATERAL History of total shoulder replacement RIGHT Nausea and vomiting after administration of anesthetic agent Family History Father Family history of diabetes mellitus Arthritis Hypertension Stroke Lung disease Obesity Diabetes Mother Arthritis Diabetes Hypertension Stroke Obesity Depression Brother Depression Suicide Aunt Uterine cancer Grandfather (Maternal) Colorectal cancer Aunt Colorectal cancer Denies family history of Prostate cancer Myocardial infarction Breast cancer Social History Smoking Status: Never smoker Second Hand Exposure: No; Hx Alcohol Use: No Hx Substance Use: No Preferred Language: Upper Sorbian Communication Ability: Effective Visual Impairment: Limited Hearing Ability: Normal Stem Lead Former Required: No Beliefs That Will Affect Care: None marital status: Current Living Situation: Spouse current occupational status: retired Feels Safe at Home: Yes Childhood Exposure to Second-Hand Smoke: Yes Dental Care, Regularly: Yes Physical Activity Frequency: 3-4 Times per Week Seatbelt Use: always Sunscreen Use: Yes Assistive Devices: Glasses, Walker and Wheelchair Review of Systems Review of Systems: All systems reviewed & are unremarkable except as noted in HPI & below Physical Exam Physical Exam: General: A&O to name an dplace NAD. Cooperative. HEENT: Atraumatic, normocephalic. SHANI. Vision/hearing intact./ Pulm: Bibasilar atelectais/crackles, no wheezing. Good air movement. Symmetrical chest rise. No increased work of breathing. No respiratory distress. Cardiac: irir, soft sm. Radial pulses intact and symmetrical. No JVD. Abdominal: Nontender, nondistended, soft. BS present. Ext: Warm, dry. 1+ ankle edema. Sensation to soft touch intact in feet bilaterally, but endorses overlying tingling/neuropathy up to the mid calf bilaterally. ANkle dorsi/plantarflexion intact bilaterally, public health inspector strength 5/5 bilaterally Results & Data Results & Data Vital Signs (Past 12 Hours) Vital Signs Temp Pulse Resp BP Pulse Ox O2 Del Method O2 Flow Rate 10/26/22 10:02 36.9 C 10/26/22 09:50 106 H 30 H 129/105 H 94 Nasal Cannula 2 10/26/22 09:40 106 H 27 H 167/87 H 94 Nasal Cannula 2 10/26/22 09:00 37.1 C 10/26/22 09:33 88 32 H 171/122 H 94 Nasal Cannula 2 10/26/22 09:30 101 H 24 191/124 H 94 Nasal Cannula 2 10/26/22 09:00 86 17 198/146 H 94 Nasal Cannula 2 10/26/22 08:30 92 H 23 178/136 H 93 Nasal Cannula 2 10/26/22 08:19 87 16 150/105 H 94 Nasal Cannula 2 10/26/22 08:00 100 H 25 H 180/108 H 95 Nasal Cannula 2 10/26/22 07:50 90 26 H 179/109 H 94 Nasal Cannula 2 10/26/22 07:20 88 10/26/22 06:55 89 L Room Air, Nasal Cannula 10/26/22 06:47 37.6 C H 98 H 22 153/109 H 89 L Room Air PG Care Time/CCT Total # of Minutes Spent Total Time Spent with Patient: Total time spent is greater than 50% in coordination of care (as documented) at patient's floor/unit and/or counseling patient: Coding Level of Care Code 19265 INT INP/OBS CARE 3/75MIN Diagnoses COVID-19 U07.1 Acute urinary retention R33.8 Atrial fibrillation I48.91 Diastolic CHF I50.30 CKD (chronic kidney disease), stage III N18.3 Type 2 diabetes mellitus with diabetic peripheral angiopathy without gangrene E11.51 Hypertension I10 Hyperlipidemia E78.5 Hypothyroidism E03.9 Atrial fibrillation with slow ventricular response I48.91 GERD (gastroesophageal reflux disease) K21.9
[2022-10-26] MEDS ORDERED: hydrALAZINE HCL 25 MG TAB PO STA (11:14)
[2022-10-26] MEDS ORDERED: METOPROLOL TARTRATE 25 MG TAB PO ONE (11:15)
[2022-10-26] MEDS ORDERED: FUROSEMIDE INJ 20 MG/2 ML VIAL IV ONE (11:38)
[2022-10-26] MEDS ORDERED: amLODIPine BESYLATE 5 MG TAB PO ONE (11:38)
[2022-10-26] MEDS ORDERED: FUROSEMIDE 40 MG/4 ML VIAL IV ONE (12:02)
[2022-10-26] MEDS ORDERED: PHARMACY GLYCEMIC MGMT CONSULT PRN (12:28)
[2022-10-26] MEDS ORDERED: GLUCAGON FOR INJ 1 MG VIAL SQ PRN (12:28)
[2022-10-26] MEDS ORDERED: GLUCOSE 10 TAB/TUBE PO PRN (12:28)
[2022-10-26] MEDS ORDERED: CARBOHYDRATES FOR HYPOGLYCEMIA PO PRN (12:28)
[2022-10-26] MEDS ORDERED: GLUCOSE 40% GEL 15 GM TUBE PO PRN (12:28)
[2022-10-26] MEDS ORDERED: DEXTROSE 50% 50 ML SYRINGE IV PRN (12:28)
[2022-10-26] MEDS ORDERED: bisacodyL 10 MG SUPP PR PRN (12:35)
[2022-10-26] MEDS ORDERED: POLYETHYLENE (MIRALAX) 17 GM PACK PO PRN (12:35)
[2022-10-26] MEDS ORDERED: REMDESIVIR 200 MG in SODIUM CHLORIDE 0.9% 210 ML IV STA (12:37)
[2022-10-26 13:36] LABS: Partial Thromboplastin Time 28.6 Seconds (21.0-31.0); Prothrombin Time 10.9 Seconds (9.0-12.0)
[2022-10-26] MEDS ORDERED: FLUTICASONE FUROATE 100MCG 14 PUFFS/INHALER INH PRN (13:49)
[2022-10-26] MEDS: INSULIN ASPART PER UNIT CHARGE SC SCH ×3 (14:26→20:45)
[2022-10-26] MEDS: hydrALAZINE HCL 25 MG TAB PO SCH ×2 (14:26→20:29)
[2022-10-26] MEDS: ACETAMINOPHEN 500 MG TAB PO PRN (14:28)
--- NOTE | 2022-10-26 15:18 | Pharmacy Report ---
Pharmacy Glycemic Short Note 2 - Date of Service October 26, 2022 - Glycemic Short BSG Results (Last 24 hours): 10/26/22 10/26/22 07:20 13:14 Glucose 97 POC Glucose 138 H OUTPATIENT ANTIDIABETIC REGIMEN: * Metformin 1000mg PO BID * Lantus 6 units SQ HS ASSESSMENT: * 76 year old female admitted 10/26/22 for COVID-19, AHRF, and urinary retention. * Patient was given 10 units of IV dexamethasone in the ED, and ordered 6 units SQ daily ongoing starting 10/27/22. * Random BSG this morning was 97 mg/dL. BSG 138 mg/dL at lunchtime. * In 2020, patient was given SoluMedrol 60mg Q6H IV FRAN, and was maintained within goal range with Novolog parameters of 25-15. * Will start glycemic management conservatively and tighten as indicated; basal to be given at ~80% of home dose. PLAN FOR INPATIENT GLYCEMIC CONTROL: * Hold outpatient oral diabetes medications * Basal insulin * Lantus 5 units SQ HS * Bolus insulin * NovoLog per scale ACHS or Q6hrs while NPO * Goal Range: Low 110 mg/dL - High 140 mg/dL * Correction Factor: 30 mg/dL/unit * Nutritional / Prandial insulin per carb ratio of 1 unit per 10 grams CHO consumed
--- NOTE | 2022-10-26 16:44 | XRay Report ---
XR KUB/Abdomen 1 view CLINICAL HISTORY: ?fecal retention TECHNIQUE: 1 view of the abdomen was obtained. Comparison: Comparison is made to chest and abdomen radiograph 04/11/2021 FINDINGS: Posterior fixation hardware and bilateral hip arthroplasties are seen. Degenerative changes are seen in the visualized skeleton. The bowel gas pattern is nonobstructive. Small stool burden is seen. IMPRESSION: Small stool burden. There is a small amount of stool in the rectum without evidence of inspissation. ACT 112: Negative or not required by law. Electronically signed by: Lito Mckeon M.D. 10/26/2022 4:42 PM
--- NOTE | 2022-10-26 17:44 | Electrocardiogram Report ---
Test Reason : Blood Pressure : / mmHG Vent. Rate : 098 BPM Atrial Rate : 111 BPM P-R Int : 000 ms QRS Dur : 110 ms QT Int : 324 ms P-R-T Axes : 000 -54 052 degrees QTc Int : 413 ms Atrial fibrillation Left axis deviation Inferior infarct (cited on or before 09-SEP-2020) Abnormal ECG When compared with ECG of 21-SEP-2020 06:11, Questionable change in QRS duration Confirmed by Naresh Morin ([id number]) on 10/26/2022 5:44:02 PM Referred By: REFERRED SELF Confirmed By:Arpit Morin
[2022-10-26] MEDS: METOPROLOL TARTRATE 25 MG TAB PO SCH (20:28)
[2022-10-26] MEDS: RIVAROXABAN 15 MG TAB PO SCH (20:29)
[2022-10-26] MEDS: amLODIPine BESYLATE 5 MG TAB PO SCH (20:29)
[2022-10-26] MEDS: DULoxetine HCL 60 MG CAP PO SCH (20:30)
[2022-10-26] MEDS: GABAPENTIN 800 MG TAB PO SCH (20:30)
[2022-10-26] MEDS: LANTUS PER UNIT CHARGE SQ SCH (20:46)
[2022-10-26] MEDS: ONDANSETRON 4 MG OD TAB PO PRN (20:56)
[2022-10-27] MEDS: CHLORZOXAZONE 500 MG TAB PO PRN ×3 (01:14→20:36)
[2022-10-27] MEDS: LEVOTHYROXINE SODIUM 150 MCG TABLET PO SCH (06:10)
[2022-10-27 06:40] LABS: Basophils # (auto) 0.02 K/uL (0-0.2); Basophils % (auto) 0.4 %; Hematocrit (blood only) 39.5 % (37.0-47.0); Hemoglobin 12.8 g/dl (12.0-16.0); Immature Granulocytes # (auto) 0.05 K/uL (0.01-0.20); Lymphocytes # (auto) 0.96 K/uL (1.2-3.4); Lymphocytes % (auto) 18.8 %; Mean Corpuscular Hemoglobin 28.9 pg (25.0-34.0); Mean Corpuscular Hgb Conc 32.4 g/dL (32.0-36.0); Mean Corpuscular Volume 89.2 fL (80.0-100.0); Mean Platelet Volume 9.8 fL (9.4-12.4); Monocytes % (auto) 17.6 %; Neutrophils # (auto) 3.18 K/uL (1.40-6.50); Neutrophils % (auto) 62.2 %; Platelet Count 261 K/uL (130-400); RDW Coefficient of Variation 13.5 % (11.5-14.5); RDW Standard Deviation 43.9 fL (36.4-46.3); Red Blood Count 4.43 M/uL (4.20-5.40); White Blood Count 5.11 K/ul (4.8-10.8)
[2022-10-27 07:04] LABS: Albumin Globulin Ratio 1.3 (0.9-2); Albumin Level 3.9 gm/dl (3.4-5.0); BUN Creatinine Ratio 22.4 (10-20); Bilirubin,Total 0.4 mg/dl (0.2-1.0); C Reactive Protein 2.92 mg/dl (0-0.5); Calcium 9.9 mg/dl (8.6-10.3); Est GFR (Non-African American) 45.7 ml/min; Potassium 3.9 mmol/L (3.5-5.1); Total Protein 6.9 gm/dl (6.0-8.3)
[2022-10-27 07:23] LABS: Partial Thromboplastin Ratio 1.1; Partial Thromboplastin Time 30.3 Seconds (21.0-31.0); Prothrombin Time 10.9 Seconds (9.0-12.0)
[2022-10-27] MEDS: INSULIN ASPART PER UNIT CHARGE SC SCH ×4 (08:20→20:52)
[2022-10-27] MEDS: dexAMETHasone 6 MG in SYRINGE 0 ML IV SCH (08:23)
[2022-10-27] MEDS: LOSARTAN POTASSIUM 50 MG TAB PO SCH (08:24)
[2022-10-27] MEDS: amLODIPine BESYLATE 5 MG TAB PO SCH ×2 (08:24→20:50)
[2022-10-27] MEDS: FENOFIBRATE NANOCRYSTALLIZED 145 MG TABLET PO SCH (08:24)
[2022-10-27] MEDS: FUROSEMIDE 20 MG TAB PO SCH (08:24)
[2022-10-27] MEDS: GABAPENTIN 800 MG TAB PO SCH ×2 (08:24→20:51)
[2022-10-27] MEDS: traZODone HCL 50 MG TAB PO SCH (08:25)
[2022-10-27] MEDS: METOPROLOL TARTRATE 25 MG TAB PO SCH ×2 (08:25→20:52)
[2022-10-27] MEDS: THIAMINE HCL 50 MG TABLET PO SCH (08:25)
[2022-10-27] MEDS: hydrALAZINE HCL 25 MG TAB PO SCH ×3 (08:25→20:50)
[2022-10-27] MEDS: ONDANSETRON 4 MG OD TAB PO PRN ×2 (10:12→20:36)
[2022-10-27] MEDS: REMDESIVIR 100 MG in SODIUM CHLORIDE 0.9% 230 ML IV SCH (12:17)
[2022-10-27] MEDS: ACETAMINOPHEN 500 MG TAB PO PRN (13:32)
[2022-10-27] MEDS: GABAPENTIN 300 MG CAP PO SCH (13:33)
[2022-10-27] MEDS: CINACALCET HCL 30 MG TAB PO SCH (13:33)
[2022-10-27] MEDS ORDERED: LOSARTAN POTASSIUM 50 MG TAB PO SCH (16:00)
--- NOTE | 2022-10-27 17:08 | Hospitalist Progress Note ---
Date of Service October 27, 2022 Assessment & Plan (1) COVID-19: Plan: Shortness of breath, weakness 2/2 COVID-19 with hypoxic respiratory failure requiring 2 L of oxygen COVID-positive on admission. Requiring 2 L of nasal cannula oxygen. Flu/RSV negative No leukocytosis, hemoglobin 12, platelet 247 Creatinine baseline approximately 1.3, admitting creatinine 1.27. Lactate normal on admission No transaminitis Procalcitonin normal TSH normal - CT-C: 1. No acute process within the chest. 2. Right hilar prominence on chest radiograph from earlier today was due to pulmonary vessels. 3. Moderate cardiomegaly with mild dilatation of the ascending aorta and dilatation of the central pulmonary arteries. 4. No consolidation. Subcarinal lymph node 1 cm, likely benign. Mild dilatation of ascending aorta and central pulmonary arter ies, no pneumothorax, no pleural effusion. No consolidation consistent with pneumonia. Patient is now on remdesivir. Follow for bleeding, coagulation panel changes, renal function change, and transaminitis. No evidence of superimposed pneumonia on CT, Pro-Lucas negative, no leukocytosis. We will treat as viral pneumonia, defer additional antibiotics at this time. Continue Lasix p.o. in the setting of increased pulmonary vascular congestion Dexamethasone 6 mg daily course x10 days. (2) Acute urinary retention: Plan: Acute urinary retention Most likely related to opioids History of constipation, patient also recently increased hydrocodone from 5 to 7.5 mg dosing Hydrocodone dose reduced to 5 mg as third line breakthrough Kirk in place due to retention greater than 800. Remove Kirk catheter, start voiding trial UA is not infected appearing (3) Atrial fibrillation: Plan: Atrial fibrillation Continued on metoprolol 25 mg twice daily Continue Xarelto 15 mg daily. Previously on dofetilide however this was discontinued at prior cardiology visit for rate control strategy benefits Admitting EKG: A-fib, QTc 413, LAD, no acute T wave inversion or ST segment changes Rate controlled now on home dose of metoprolol. (4) Diastolic CHF: Plan: dCHF with preserved ejection fraction, no acute exacerbation No orthopnea. No overt pulmonary edema, some lower ankle edema. No elevated creatinine. Prefer dry status in the setting of COVID, got 1 dose of IV Lasix. Now continued on home dose of Lasix p.o. BNP is pending Low-salt diet Daily weights (5) CKD (chronic kidney disease), stage III: Plan: Renal function at baseline on admission, trend BMP daily Admitting creatinine 1.27 Renally dose medications as needed, EGFR is not less than 30 (6) Type 2 diabetes mellitus with diabetic peripheral angiopathy without gangrene: Plan: Type II DM On metformin/glargine [employer]. Deferred SGLT2 addition in the past, patient prefers simplified regimen. Last A1c 6.1% well controlled 08/17/2022 Significantly different weight-based versus basal based dosing parameters. Will place on basal bolus with conservative weight-based parameters, pharmacy consulted for adjustments in the setting of significant difference and with steroid use. Goal BSG 010600, glucose checks AC/at bedtime Chronic lumbar back pain w radiculopathy Was as outpatient with epidural steroid injections with about 80% relief at last visit 09/2022 Cymbalta 60 mg daily. Patient does get significant relief which minimizes her narcotic use with NSAIDs, will continue ibuprofen 3 times daily and hold if evidence of NATASHA Continue gabapentin 800 mg morning, 300 mg noon, 800 mg evening Hydrocodone adjusted to 5 mg oxycodone third-line, dose reduced as suspect this was contributing to acute and new urinary retention with recent increase in dose as outpatient Hypothyroidism Continue Synthroid 150 mcg daily TSH wnl Hyperlipidemia Continue fenofibrate GERD Probiotic daily, rabeprazole continued Recent GERD symptoms not present Insomnia Hydroxyzine 25 mg nightly, trazodone as needed. If patient sedated, trial conversion hydroxyzine to melatonin Hypercalcemia, hyperparathyroidism Deferred parathyroidectomy, serial monitoring, calcium trended DVT PPx: Anticoagulated, continue Xarelto Diet: Heart healthy, low-salt, DM 2 CODE STATUS: Full code (7) Hypertension: (8) Hyperlipidemia: (9) Hypothyroidism: (10) Atrial fibrillation with slow ventricular response: (11) GERD (gastroesophageal reflux disease): (12) Morbid obesity with BMI of 40.0-44.9, adult: Admission and Anticipated Discharge Date Admission Date: October 26, 2022 Subjective Patient feels well overall. Feels better than yesterday. No chest pain or shortness of breath. She is weak in general. Review of Systems Review of Systems: All systems reviewed & are unremarkable except as noted in Subjective Physical Exam Physical Exam: General: Awake, conversant, obese Heart: S1, S2/regular rate and rhythm, no murmur rubs or gallops Lungs: Clear to auscultation bilaterally. Normal effort Abdomen: Soft/nontender/nondistended. No hepatosplenomegaly Extremities: No clubbing/cyanosis. No edema Behavior: Appropriate, cooperative Results & Data Results & Data Vital Signs (Past 12 Hours) Vital Signs Temp Pulse Pulse Resp BP Pulse Ox O2 Del Method 10/27/22 15:55 83 10/27/22 15:49 36.8 C 85 18 157/102 H 98 Nasal Cannula 10/27/22 12:13 36.5 C 82 17 145/84 H 95 Nasal Cannula 10/27/22 08:38 Nasal Cannula 10/27/22 08:12 36.9 C 85 18 160/98 H 98 Nasal Cannula 10/27/22 07:00 70 10/27/22 06:00 36.9 C 83 20 156/111 H 98 Nasal Cannula O2 Flow Rate 10/27/22 15:55 10/27/22 15:49 2 10/27/22 12:13 2 10/27/22 08:38 2 10/27/22 08:12 2 10/27/22 07:00 10/27/22 06:00 PG Care Time/CCT Total # of Minutes Spent Total Time Spent with Patient: Total time spent is greater than 50% in coordination of care (as documented) at patient's floor/unit and/or counseling patient: Coding Level of Care Code 82586 SUB INP/OBS CARE 2/35MIN Diagnoses COVID-19 U07.1 Acute urinary retention R33.8 Atrial fibrillation I48.91 Diastolic CHF I50.30 CKD (chronic kidney disease), stage III N18.3 Type 2 diabetes mellitus with diabetic peripheral angiopathy without gangrene E11.51 Hypertension I10 Hyperlipidemia E78.5 Hypothyroidism E03.9 Atrial fibrillation with slow ventricular response I48.91 GERD (gastroesophageal reflux disease) K21.9 Morbid obesity with BMI of 40.0-44.9, adult E66.01; Z68.41
[2022-10-27] MEDS: LANTUS PER UNIT CHARGE SQ SCH (20:39)
[2022-10-27] MEDS: IBUPROFEN 200 MG TAB PO PRN (20:48)
[2022-10-27] MEDS: DULoxetine HCL 60 MG CAP PO SCH (20:51)
[2022-10-27] MEDS: RIVAROXABAN 15 MG TAB PO SCH (20:51)
[2022-10-28] MEDS: LEVOTHYROXINE SODIUM 150 MCG TABLET PO SCH (06:35)
[2022-10-28] MEDS: INSULIN ASPART PER UNIT CHARGE SC SCH ×4 (08:25→20:28)
[2022-10-28] MEDS: hydrALAZINE HCL 25 MG TAB PO SCH ×3 (08:30→20:46)
[2022-10-28] MEDS: LOSARTAN POTASSIUM 50 MG TAB PO SCH (08:30)
[2022-10-28] MEDS: METOPROLOL TARTRATE 25 MG TAB PO SCH ×2 (08:30→20:47)
[2022-10-28] MEDS: dexAMETHasone 6 MG in SYRINGE 0 ML IV SCH (08:30)
[2022-10-28] MEDS: amLODIPine BESYLATE 5 MG TAB PO SCH ×2 (08:30→20:46)
[2022-10-28] MEDS: GABAPENTIN 800 MG TAB PO SCH ×2 (08:30→20:46)
[2022-10-28] MEDS: FENOFIBRATE NANOCRYSTALLIZED 145 MG TABLET PO SCH (08:31)
[2022-10-28] MEDS: FUROSEMIDE 20 MG TAB PO SCH (08:31)
[2022-10-28] MEDS: traZODone HCL 50 MG TAB PO SCH (08:31)
[2022-10-28] MEDS: THIAMINE HCL 50 MG TABLET PO SCH (08:31)
[2022-10-28] MEDS: CHLORZOXAZONE 500 MG TAB PO PRN ×3 (08:31→23:59)
[2022-10-28] MEDS: CINACALCET HCL 30 MG TAB PO SCH (08:31)
[2022-10-28 09:08] LABS: Hematocrit (blood only) 40.2 % (37.0-47.0); Mean Corpuscular Hemoglobin 28.8 pg (25.0-34.0); Mean Corpuscular Hgb Conc 32.3 g/dL (32.0-36.0); Mean Corpuscular Volume 89.1 fL (80.0-100.0); Mean Platelet Volume 9.6 fL (9.4-12.4); Platelet Count 280 K/uL (130-400); RDW Coefficient of Variation 13.7 % (11.5-14.5); RDW Standard Deviation 44.9 fL (36.4-46.3); Red Blood Count 4.51 M/uL (4.20-5.40); White Blood Count 5.54 K/ul (4.8-10.8)
[2022-10-28 09:23] LABS: Albumin Globulin Ratio 1.3 (0.9-2); Albumin Level 3.8 gm/dl (3.4-5.0); Bilirubin,Total 0.4 mg/dl (0.2-1.0); Calcium 9.8 mg/dl (8.6-10.3); Creatinine Clr Calc Pharmacy 49.1 ml/min; Est GFR (African American) 45.3 ml/min; Est GFR (Non-African American) 39.1 ml/min; Potassium 3.9 mmol/L (3.5-5.1); Total Protein 6.8 gm/dl (6.0-8.3)
[2022-10-28 09:34] LABS: INR 1.1 (0.9-1.1); Prothrombin Time 11.7 Seconds (9.0-12.0)
[2022-10-28] MEDS: REMDESIVIR 100 MG in SODIUM CHLORIDE 0.9% 230 ML IV SCH (11:59)
[2022-10-28] MEDS: GABAPENTIN 300 MG CAP PO SCH (11:59)
--- NOTE | 2022-10-28 12:58 | Pharmacy Report ---
Pharmacy Glycemic Short Note 2 - Date of Service October 28, 2022 - Glycemic Short BSG Results (Last 24 hours): 10/27/22 10/27/22 10/28/22 16:22 20:17 07:57 Glucose POC Glucose 169 H 120 H 118 H 10/28/22 10/28/22 08:40 11:47 Glucose 149 H POC Glucose 127 H OUTPATIENT ANTIDIABETIC REGIMEN: * Metformin 1000mg PO BID * Lantus 6 units SQ HS ASSESSMENT: 10/28: * BSG's well managed over past 48 hours. Yesterday, BSG's recorded at [phone] mg/dL. Today, fasting 118 mg/dL and lunchtime 127 mg/dL. * Yesterday patient received 12 units of bolus insulin and 5 units of basal. 17 total units administered. * Patient continuing on dexamethasone 6mg IV daily and T2DM diet. Current NovoLog parameters demonstrate appropriate control of prandial BSG's in setting of steroid usage. Parameters may require adjustment should steroid regimen or diet be altered at any point. 10/26 (initial): * 76 year old female admitted 10/26/22 for COVID-19, AHRF, and urinary retention. * Patient was given 10 units of IV dexamethasone in the ED, and ordered 6 units SQ daily ongoing starting 10/27/22. * Random BSG this morning was 97 mg/dL. BSG 138 mg/dL at lunchtime. * In 2020, patient was given SoluMedrol 60mg Q6H IV FRAN, and was maintained within goal range with Novolog parameters of 25-15. * Will start glycemic management conservatively and tighten as indicated; basal to be given at ~80% of home dose. PLAN FOR INPATIENT GLYCEMIC CONTROL: * Hold outpatient oral diabetes medications * Basal insulin * Lantus 5 units SQ HS * Bolus insulin * NovoLog per scale ACHS or Q6hrs while NPO * Goal Range: Low 110 mg/dL - High 140 mg/dL * Correction Factor: 30 mg/dL/unit * Nutritional / Prandial insulin per carb ratio of 1 unit per 10 grams CHO consumed
--- NOTE | 2022-10-28 13:36 | Hospitalist Progress Note ---
Date of Service October 28, 2022 Assessment & Plan (1) COVID-19: Plan: Shortness of breath, weakness 2/2 COVID-19 with hypoxic respiratory failure requiring 2 L of oxygen COVID-positive on admission. Requiring 2 L of nasal cannula oxygen. Flu/RSV negative No leukocytosis, hemoglobin 12, platelet 247 Creatinine baseline approximately 1.3, admitting creatinine 1.27. Lactate normal on admission No transaminitis Procalcitonin normal TSH normal -CT showed no consolidation consistent with pneumonia. Patient is now on remdesivir. Follow for bleeding, coagulation panel changes, renal function change, and transaminitis. Renal function still at baseline No evidence of superimposed pneumonia on CT, Pro-Lucas negative, no leukocytosis. We will treat as viral pneumonia, defer additional antibiotics at this time. Continue Lasix p.o. in the setting of increased pulmonary vascular congestion Dexamethasone 6 mg daily course x10 days. (2) Acute urinary retention: Plan: Acute urinary retention Most likely related to opioids History of constipation, patient also recently increased hydrocodone from 5 to 7.5 mg dosing Hydrocodone dose reduced to 5 mg as third line breakthrough Kirk in place due to retention greater than 800. Remove Kirk catheter, start voiding trial. Spoke to nurse UA is not infected appearing (3) Atrial fibrillation: Plan: Atrial fibrillation Continued on metoprolol 25 mg twice daily Continue Xarelto 15 mg daily. Previously on dofetilide however this was discontinued at prior cardiology visit for rate control strategy benefits Admitting EKG: A-fib, QTc 413, LAD, no acute T wave inversion or ST segment changes Rate controlled now on home dose of metoprolol. (4) Diastolic CHF: Plan: dCHF with preserved ejection fraction, no acute exacerbation No orthopnea. No overt pulmonary edema, some lower ankle edema. No elevated creatinine. Prefer dry status in the setting of COVID, got 1 dose of IV Lasix. Now continued on home dose of Lasix p.o. BNP is pending Low-salt diet Daily weights (5) CKD (chronic kidney disease), stage III: Plan: Renal function at baseline on admission, trend BMP daily Admitting creatinine 1.27. Creatinine still at baseline. 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 Deferred SGLT2 addition in the past, patient prefers simplified regimen. Last A1c 6.1% well controlled 08/17/2022 Significantly different weight-based versus basal based dosing parameters. Will place on basal bolus with conservative weight-based parameters, pharmacy consulted for adjustments in the setting of significant difference and with steroid use. Goal BSG [id number], glucose checks AC/at bedtime Chronic lumbar back pain w radiculopathy Was as outpatient with epidural steroid injections with about 80% relief at last visit 09/2022 Cymbalta 60 mg daily. Patient does get significant relief which minimizes her narcotic use with NSAIDs, will continue ibuprofen 3 times daily and hold if evidence of NATASHA Continue gabapentin 800 mg morning, 300 mg noon, 800 mg evening Hydrocodone adjusted to 5 mg oxycodone third-line, dose reduced as suspect this was contributing to acute and new urinary retention with recent increase in dose as outpatient Hypothyroidism Continue Synthroid 150 mcg daily TSH wnl Hyperlipidemia Continue fenofibrate GERD Probiotic daily, rabeprazole continued Recent GERD symptoms not present Insomnia Hydroxyzine 25 mg nightly, trazodone as needed. If patient sedated, trial conversion hydroxyzine to melatonin Hypercalcemia, hyperparathyroidism Deferred parathyroidectomy, serial monitoring, calcium trended DVT PPx: Anticoagulated, continue Xarelto Diet: Heart healthy, low-salt, DM 2 CODE STATUS: Full code (7) Hypertension: (8) Hyperlipidemia: (9) Hypothyroidism: (10) Atrial fibrillation with slow ventricular response: (11) GERD (gastroesophageal reflux disease): (12) Morbid obesity with BMI of 40.0-44.9, adult: Plan: Weight loss counseling (13) Generalized weakness: Plan: PT/OT involved Case management involved Admission and Anticipated Discharge Date Admission Date: October 26, 2022 Subjective Patient says that she is feeling a little stronger today. She still has the Kirk catheter in place. Asked the nurse to remove Kirk catheter and start voiding trial. She is breathing better. Review of Systems Review of Systems: All systems reviewed & are unremarkable except as noted in Subjective Physical Exam Physical Exam: General: Awake, conversant, obese Heart: S1, S2/regular rate and rhythm, no murmur rubs or gallops Lungs: Clear to auscultation bilaterally. Normal effort Abdomen: Soft/nontender/nondistended. No hepatosplenomegaly Extremities: No clubbing/cyanosis. No edema Behavior: Appropriate, cooperative Results & Data Results & Data Vital Signs (Past 12 Hours) Vital Signs Temp Pulse Pulse Resp BP Pulse Ox O2 Del Method 10/28/22 12:05 36.7 C 80 20 144/81 H 91 Nasal Cannula 10/28/22 10:00 Nasal Cannula 10/28/22 08:04 36.7 C 81 18 156/90 H 97 Room Air 10/28/22 07:30 72 10/28/22 03:19 36.7 C 70 20 141/92 H 98 Nasal Cannula O2 Flow Rate 10/28/22 12:05 1 10/28/22 10:00 2 10/28/22 08:04 10/28/22 07:30 10/28/22 03:19 4 Laboratory Results Abnormal lab results 10/27/22 10/27/22 10/28/22 Range/Units 16:22 20:17 07:57 Carbon Dioxide (21-32) mmol/L BUN (6-23) mg/dl Creatinine (0.6-1.2) mg/dl BUN/Creatinine Ratio (10-20) Glucose (70-99(Fasting)) mg/dl POC Glucose 169 H 120 H 118 H (70-99) mg/dl 10/28/22 10/28/22 Range/Units 08:40 11:47 Carbon Dioxide 33 H (21-32) mmol/L BUN 33 H (6-23) mg/dl Creatinine 1.32 H (0.6-1.2) mg/dl BUN/Creatinine Ratio 25.0 H (10-20) Glucose 149 H (70-99(Fasting)) mg/dl POC Glucose 127 H (70-99) mg/dl PG Care Time/CCT Total # of Minutes Spent Total Time Spent with Patient: Total time spent is greater than 50% in coordination of care (as documented) at patient's floor/unit and/or counseling patient: Coding Level of Care Code 56988 SUB INP/OBS CARE 2/35MIN Diagnoses COVID-19 U07.1 Acute urinary retention R33.8 Atrial fibrillation I48.91 Diastolic CHF I50.30 CKD (chronic kidney disease), stage III N18.3 Type 2 diabetes mellitus with diabetic peripheral angiopathy without gangrene E11.51 Hypertension I10 Hyperlipidemia E78.5 Hypothyroidism E03.9 Atrial fibrillation with slow ventricular response I48.91 GERD (gastroesophageal reflux disease) K21.9 Morbid obesity with BMI of 40.0-44.9, adult E66.01; Z68.41 Generalized weakness R53.1
[2022-10-28] MEDS: ONDANSETRON 4 MG OD TAB PO PRN (19:12)
[2022-10-28] MEDS: IBUPROFEN 200 MG TAB PO PRN (20:44)
[2022-10-28] MEDS: DULoxetine HCL 60 MG CAP PO SCH (20:46)
[2022-10-28] MEDS: RIVAROXABAN 15 MG TAB PO SCH (20:47)
[2022-10-28] MEDS: LANTUS PER UNIT CHARGE SQ SCH (20:57)
[2022-10-28] MEDS: MELATONIN 3 MG TAB PO PRN (22:23)
[2022-10-29] MEDS: LEVOTHYROXINE SODIUM 150 MCG TABLET PO SCH (06:14)
[2022-10-29 07:21] LABS: Hematocrit (blood only) 39.8 % (37.0-47.0); Hemoglobin 12.7 g/dl (12.0-16.0); Mean Corpuscular Hemoglobin 28.2 pg (25.0-34.0); Mean Corpuscular Hgb Conc 31.9 g/dL (32.0-36.0); Mean Corpuscular Volume 88.2 fL (80.0-100.0); Mean Platelet Volume 9.7 fL (9.4-12.4); Platelet Count 276 K/uL (130-400); RDW Coefficient of Variation 13.4 % (11.5-14.5); RDW Standard Deviation 43.5 fL (36.4-46.3); Red Blood Count 4.51 M/uL (4.20-5.40); White Blood Count 4.56 K/ul (4.8-10.8)
[2022-10-29 07:32] LABS: INR 1.1 (0.9-1.1); Prothrombin Time 11.4 Seconds (9.0-12.0)
[2022-10-29 07:38] LABS: Albumin Level 3.6 gm/dl (3.4-5.0); Bilirubin,Total 0.4 mg/dl (0.2-1.0); Calcium 9.3 mg/dl (8.6-10.3)
[2022-10-29 07:44] LABS: Albumin Globulin Ratio 1.3 (0.9-2); BUN Creatinine Ratio 29.6 (10-20); Creatinine Clr Calc Pharmacy 51.7 ml/min; Est GFR (African American) 48.4 ml/min; Est GFR (Non-African American) 41.8 ml/min; Globulin 2.8 gm/dl (2.5-4.0); Total Protein 6.4 gm/dl (6.0-8.3)
[2022-10-29] MEDS: INSULIN ASPART PER UNIT CHARGE SC SCH ×4 (08:03→21:03)
[2022-10-29] MEDS: IBUPROFEN 200 MG TAB PO PRN (08:15)
[2022-10-29] MEDS: dexAMETHasone 6 MG in SYRINGE 0 ML IV SCH (08:15)
[2022-10-29] MEDS: FENOFIBRATE NANOCRYSTALLIZED 145 MG TABLET PO SCH (08:16)
[2022-10-29] MEDS: LOSARTAN POTASSIUM 50 MG TAB PO SCH (08:16)
[2022-10-29] MEDS: THIAMINE HCL 50 MG TABLET PO SCH (08:16)
[2022-10-29] MEDS: amLODIPine BESYLATE 5 MG TAB PO SCH ×2 (08:16→21:26)
[2022-10-29] MEDS: traZODone HCL 50 MG TAB PO SCH (08:16)
[2022-10-29] MEDS: GABAPENTIN 800 MG TAB PO SCH ×2 (08:17→21:25)
[2022-10-29] MEDS: METOPROLOL TARTRATE 25 MG TAB PO SCH ×2 (08:17→21:26)
[2022-10-29] MEDS: hydrALAZINE HCL 25 MG TAB PO SCH ×3 (08:17→21:26)
[2022-10-29] MEDS: CINACALCET HCL 30 MG TAB PO SCH (08:18)
[2022-10-29] MEDS: FUROSEMIDE 20 MG TAB PO SCH (08:18)
[2022-10-29] MEDS: CHLORZOXAZONE 500 MG TAB PO PRN ×2 (10:17→21:10)
--- NOTE | 2022-10-29 11:35 | Pharmacy Report ---
Pharmacy Glycemic Short Note 2 - Date of Service October 29, 2022 - Glycemic Short BSG Results (Last 24 hours): 10/28/22 10/28/22 10/28/22 11:47 16:38 20:02 Glucose POC Glucose 127 H 120 H 124 H 10/29/22 10/29/22 10/29/22 06:53 07:25 10:56 Glucose 92 POC Glucose 88 119 H OUTPATIENT ANTIDIABETIC REGIMEN: * Metformin 1000mg PO BID * Lantus 6 units SQ HS ASSESSMENT: 10/29: * Blood sugars well controlled, patient received 15 units of insulin yesterday, 5 units basal, fasting 88mg/dl. * Will hold basal tonight to prevent any hypoglycemia and see how fasting blood sugar is tomorrow to determine ongoing dose of basal. * No changes in bolus needed at this time. * Patient continues on Dexamethasone 6mg IV daily and Type 2 DM diet. 10/28: * BSG's well managed over past 48 hours. Yesterday, BSG's recorded at [phone] mg/dL. Today, fasting 118 mg/dL and lunchtime 127 mg/dL. * Yesterday patient received 12 units of bolus insulin and 5 units of basal. 17 total units administered. * Patient continuing on dexamethasone 6mg IV daily and T2DM diet. Current NovoLog parameters demonstrate appropriate control of prandial BSG's in setting of steroid usage. Parameters may require adjustment should steroid regimen or diet be altered at any point. 10/26 (initial): * 76 year old female admitted 10/26/22 for COVID-19, AHRF, and urinary retention. * Patient was given 10 units of IV dexamethasone in the ED, and ordered 6 units SQ daily ongoing starting 10/27/22. * Random BSG this morning was 97 mg/dL. BSG 138 mg/dL at lunchtime. * In 2020, patient was given SoluMedrol 60mg Q6H IV FRAN, and was maintained within goal range with Novolog parameters of 25-15. * Will start glycemic management conservatively and tighten as indicated; basal to be given at ~80% of home dose. PLAN FOR INPATIENT GLYCEMIC CONTROL: * Hold outpatient oral diabetes medications * Basal insulin * Lantus 5 units SQ HS - HOLD 10/29 to prevent hypoglycemia - re-evaluate basal needs 10/30 * Bolus insulin * NovoLog per scale ACHS or Q6hrs while NPO * Goal Range: Low 110 mg/dL - High 140 mg/dL * Correction Factor: 30 mg/dL/unit * Nutritional / Prandial insulin per carb ratio of 1 unit per 10 grams CHO consumed
[2022-10-29] MEDS: REMDESIVIR 100 MG in SODIUM CHLORIDE 0.9% 230 ML IV SCH (13:01)
[2022-10-29] MEDS: GABAPENTIN 300 MG CAP PO SCH (13:02)
--- NOTE | 2022-10-29 14:34 | Hospitalist Progress Note ---
Date of Service October 29, 2022 Assessment & Plan (1) COVID-19: Plan: Shortness of breath, weakness 2/2 COVID-19 with hypoxic respiratory failure requiring 2 L of oxygen COVID-positive on admission. Requiring 2 L of nasal cannula oxygen. Flu/RSV negative No leukocytosis, hemoglobin 12, platelet 247 Creatinine baseline approximately 1.3, admitting creatinine 1.27. Lactate normal on admission No transaminitis Procalcitonin normal TSH normal -CT showed no consolidation consistent with pneumonia. Patient is now on remdesivir. Follow for bleeding, coagulation panel changes, renal function change, and transaminitis. Renal function still at baseline No evidence of superimposed pneumonia on CT, Pro-Lucas negative, no leukocytosis. We will treat as viral pneumonia, defer additional antibiotics at this time. Continue Lasix p.o. in the setting of increased pulmonary vascular congestion Dexamethasone 6 mg daily course x10 days. (2) Acute urinary retention: Plan: Acute urinary retention Most likely related to opioids History of constipation, patient also recently increased hydrocodone from 5 to 7.5 mg dosing Patient is now off of hydrocodone. Recommend that she be discharged on the lower dose 5 mg of hydrocodone Resolved Kirk has been removed and the patient is voiding on her own. UA is not infected appearing (3) Atrial fibrillation: Plan: Atrial fibrillation Continued on metoprolol 25 mg twice daily Continue Xarelto 15 mg daily. Previously on dofetilide however this was discontinued at prior cardiology visit for rate control strategy benefits Admitting EKG: A-fib, QTc 413, LAD, no acute T wave inversion or ST segment changes Rate controlled now on home dose of metoprolol. (4) Diastolic CHF: Plan: dCHF with preserved ejection fraction, no acute exacerbation No orthopnea. No overt pulmonary edema, some lower ankle edema. No elevated creatinine. Prefer dry status in the setting of COVID, got 1 dose of IV Lasix. Now continued on home dose of Lasix p.o. Low-salt diet Daily weights (5) CKD (chronic kidney disease), stage III: Plan: Renal function at baseline on admission, trend BMP daily Admitting creatinine 1.27. Creatinine still at baseline. 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 Deferred SGLT2 addition in the past, patient prefers simplified regimen. Last A1c 6.1% well controlled 08/17/2022 Significantly different weight-based versus basal based dosing parameters. Will place on basal bolus with conservative weight-based parameters, pharmacy consulted for adjustments in the setting of significant difference and with steroid use. Goal BSG 442038, glucose checks AC/at bedtime Chronic lumbar back pain w radiculopathy Was as outpatient with epidural steroid injections with about 80% relief at last visit 09/2022 Cymbalta 60 mg daily. Patient does get significant relief which minimizes her narcotic use with NSAIDs, will continue ibuprofen 3 times daily and hold if evidence of NATASHA Continue gabapentin 800 mg morning, 300 mg noon, 800 mg evening Hydrocodone adjusted to 5 mg oxycodone third-line, dose reduced as suspect this was contributing to acute and new urinary retention with recent increase in dose as outpatient Hypothyroidism Continue Synthroid 150 mcg daily TSH wnl Hyperlipidemia Continue fenofibrate GERD Probiotic daily, rabeprazole continued Recent GERD symptoms not present Insomnia Hydroxyzine 25 mg nightly, trazodone as needed. If patient sedated, trial conversion hydroxyzine to melatonin Hypercalcemia, hyperparathyroidism Deferred parathyroidectomy, serial monitoring, calcium trended DVT PPx: Anticoagulated, continue Xarelto Diet: Heart healthy, low-salt, DM 2 CODE STATUS: Full code (7) Hypertension: (8) Hyperlipidemia: (9) Hypothyroidism: (10) Atrial fibrillation with slow ventricular response: (11) GERD (gastroesophageal reflux disease): (12) Morbid obesity with BMI of 40.0-44.9, adult: Plan: Weight loss counseling (13) Generalized weakness: Plan: PT/OT involved Case management involved Patient says that she was told by case manager specialist that can go home with home health services. Plan Disposition: Likely discharge in a day or 2 Admission and Anticipated Discharge Date Admission Date: October 26, 2022 Subjective Patient continues to feel better overall Kirk catheter has been removed. She is now voiding on her own. Review of Systems Review of Systems: All systems reviewed & are unremarkable except as noted in Subjective Physical Exam Physical Exam: General: Awake, conversant, obese Heart: S1, S2/regular rate and rhythm, no murmur rubs or gallops Lungs: Clear to auscultation bilaterally. Normal effort Abdomen: Soft/nontender/nondistended. No hepatosplenomegaly Extremities: No clubbing/cyanosis. No edema Behavior: Appropriate, cooperative Results & Data Results & Data Vital Signs (Past 12 Hours) Vital Signs Temp Pulse Pulse Resp BP Pulse Ox O2 Del Method 10/29/22 11:40 36.6 C 62 19 155/83 H 96 Nasal Cannula 10/29/22 08:00 66 10/29/22 08:00 Nasal Cannula 10/29/22 07:50 37.0 C 69 17 155/98 H 96 Nasal Cannula 10/29/22 04:38 36.6 C 68 16 146/52 H 93 Nasal Cannula O2 Flow Rate 10/29/22 11:40 1 10/29/22 08:00 10/29/22 08:00 1 10/29/22 07:50 1 10/29/22 04:38 1 PG Care Time/CCT Total # of Minutes Spent Total Time Spent with Patient: Total time spent is greater than 50% in coordination of care (as documented) at patient's floor/unit and/or counseling patient: Coding Level of Care Code 38691 SUB INP/OBS CARE 2/35MIN Diagnoses COVID-19 U07.1 Acute urinary retention R33.8 Atrial fibrillation I48.91 Diastolic CHF I50.30 CKD (chronic kidney disease), stage III N18.3 Type 2 diabetes mellitus with diabetic peripheral angiopathy without gangrene E11.51 Hypertension I10 Hyperlipidemia E78.5 Hypothyroidism E03.9 Atrial fibrillation with slow ventricular response I48.91 GERD (gastroesophageal reflux disease) K21.9 Morbid obesity with BMI of 40.0-44.9, adult E66.01; Z68.41 Generalized weakness R53.1
[2022-10-29] MEDS: MELATONIN 3 MG TAB PO PRN (21:11)
[2022-10-29] MEDS: DULoxetine HCL 60 MG CAP PO SCH (21:25)
[2022-10-29] MEDS: RIVAROXABAN 15 MG TAB PO SCH (21:26)
[2022-10-30] MEDS: ACETAMINOPHEN 500 MG TAB PO PRN (05:08)
[2022-10-30] MEDS: LEVOTHYROXINE SODIUM 150 MCG TABLET PO SCH (05:09)
[2022-10-30 06:12] LABS: Hematocrit (blood only) 38.4 % (37.0-47.0); Hemoglobin 12.7 g/dl (12.0-16.0); Mean Corpuscular Hemoglobin 28.7 pg (25.0-34.0); Mean Corpuscular Hgb Conc 33.1 g/dL (32.0-36.0); Mean Corpuscular Volume 86.9 fL (80.0-100.0); Mean Platelet Volume 9.7 fL (9.4-12.4); Platelet Count 286 K/uL (130-400); RDW Coefficient of Variation 13.3 % (11.5-14.5); RDW Standard Deviation 42.5 fL (36.4-46.3); Red Blood Count 4.42 M/uL (4.20-5.40); White Blood Count 5.37 K/ul (4.8-10.8)
[2022-10-30 06:26] LABS: Albumin Globulin Ratio 1.3 (0.9-2); Albumin Level 3.7 gm/dl (3.4-5.0); BUN Creatinine Ratio 32.2 (10-20); Bilirubin,Total 0.4 mg/dl (0.2-1.0); Calcium 9.3 mg/dl (8.6-10.3); Creatinine Clr Calc Pharmacy 51.4 ml/min; Est GFR (African American) 50.3 ml/min; Est GFR (Non-African American) 43.4 ml/min; Globulin 2.8 gm/dl (2.5-4.0); Potassium 3.8 mmol/L (3.5-5.1); Total Protein 6.5 gm/dl (6.0-8.3)
[2022-10-30 06:38] LABS: Prothrombin Time 11.4 Seconds (9.0-12.0)
[2022-10-30] MEDS: INSULIN ASPART PER UNIT CHARGE SC SCH ×2 (08:40→12:19)
[2022-10-30] MEDS: dexAMETHasone 6 MG in SYRINGE 0 ML IV SCH (08:44)
[2022-10-30] MEDS: FENOFIBRATE NANOCRYSTALLIZED 145 MG TABLET PO SCH (08:44)
[2022-10-30] MEDS: amLODIPine BESYLATE 5 MG TAB PO SCH (08:44)
[2022-10-30] MEDS: FUROSEMIDE 20 MG TAB PO SCH (08:44)
[2022-10-30] MEDS: CINACALCET HCL 30 MG TAB PO SCH (08:44)
[2022-10-30] MEDS: THIAMINE HCL 50 MG TABLET PO SCH (08:44)
[2022-10-30] MEDS: traZODone HCL 50 MG TAB PO SCH (08:44)
[2022-10-30] MEDS: hydrALAZINE HCL 25 MG TAB PO SCH (08:45)
[2022-10-30] MEDS: METOPROLOL TARTRATE 25 MG TAB PO SCH (08:45)
[2022-10-30] MEDS: LOSARTAN POTASSIUM 50 MG TAB PO SCH (08:45)
[2022-10-30] MEDS: GABAPENTIN 800 MG TAB PO SCH (08:45)
[2022-10-30] MEDS: IBUPROFEN 200 MG TAB PO PRN (08:54)
--- NOTE | 2022-10-30 08:55 | Pharmacy Report ---
Pharmacy Glycemic Sign Off Nt - Date of Service October 30, 2022 - Assessment & Plan ASSESSMENT: * Pharmacy was consulted by Dr Acosta on 10/26/22 for glycemic control and to write orders per [facility] inpatient glycemic control protocol. * Major changes made by pharmacy to antidiabetic regimen include: * Addition of Novolog * Initiation of basal (Lantus) and subsequent discontinuation * Patient has been receiving/requiring 12-17 units of insulin per day for adequate glycemic control * BSGs ranging 88-169 mg/dl * Regimen has only required minor adjustments over the past 48hrs to achieve this level of control * Do not anticipate further changes in patient status that would quickly deteriorate glycemic control (i.e. patient to be NPO for upcoming procedure, steroids tapering, starting tube feedings, etc). * Please see recommendations for outpatient antidiabetic regimen below. PLAN FOR INPATIENT GLYCEMIC CONTROL: No changes needed to current regimen. * Hold basal * Continue NovoLog per scale ACHS/Q6hrs while NPO * Goal range = 110-140 mg/dl * CF = 30 mg/dl/unit * CR = 1 unit for ever 10 g CHO consumed * Pharmacy is signing off of glycemic consult and will no longer be making adjustments to inpatient regimen. Please feel free to re-consult if needed. Thank you.
[2022-10-30] MEDS: CHLORZOXAZONE 500 MG TAB PO PRN (10:09)
--- NOTE | 2022-10-30 10:11 | Discharge Summary ---
Date of Service October 30, 2022 Admission HPI Per Admitting Provider Ni is a 76-year-old female with a past medical history of toxic goiter, ankylosing spondylitis, polyneuropathy, type II DM with stage III CKD, elevated BMI, hypertension, OA, TIERRA, hyperlipidemia, spinal stenosis, asthma, atrial fibrillation on anticoagulation, diastolic heart failure who presents with 3 to 4 days of worsening cough, congestion, fatigue with associated weakness and overall shakiness. Ni is seen for a productive cough and shortness of breath. She is in the bedside with her present. She reports 2-3 days of cough, shortness of breath. Shortness of breath is much worse walking around, improve but does not resolve with rest. Denies orthopnea. No new leg swelling. She has had some increased sputum production. Normal dry weight is around 280lbs but isn't sure. Notes bathroom scales have trouble weighting to some tremor when trying to weigh herself at home. NO chest pain, no chest pressure. No lightheadedness, no dizziness. No falls. Endorses new urinary incontinence over the weekend, with cath here for 800 cc of urine and continued retention requiring Kirk placement. Patient did recently increase her hydrocodone from 5 to 7.5 mg. No other medication change. Has felt overall weak, and harder to get up and walk around at home but no focal weakness. Endorses neuropathy mostly in her feet which spreads up to the mid calf, unchanged+chronic constipation Meds: Reviewed at bedside. amlodipine 2.5mg, 800mg gabapending, 25mg hydralazine, PPI 20mg, 20mg lasix,metoprolol 25 (at noon and bedtime), cinacalet 2pm, 1g metformin, xarelto pm, and 145mcg fenofibrate at noon. 5mg hydrocodone PRN up to TID for pain. 2x tylenol in the AM. 9pm 1g metforming, 800mg gabapentin, 60mg duloxetine, 5mg amlodipine Full Code. No tobacco/etoh/rec drug use. Admission Exam Per Admitting Provider General: A&O to name an dplace NAD. Cooperative. HEENT: Atraumatic, normocephalic. SHANI. Vision/hearing intact./ Pulm: Bibasilar atelectais/crackles, no wheezing. Good air movement. Symmetrical chest rise. No increased work of breathing. No respiratory distress. Cardiac: irir, soft sm. Radial pulses intact and symmetrical. No JVD. Abdominal: Nontender, nondistended, soft. BS present. Ext: Warm, dry. 1+ ankle edema. Sensation to soft touch intact in feet bilaterally, but endorses overlying tingling/neuropathy up to the mid calf bilaterally. 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 Normal effort Abdomen: Soft/nontender/nondistended. No hepatosplenomegaly Extremities: No clubbing/cyanosis. No edema Behavior: Appropriate, cooperative Discharge Data Allergies Allergy/AdvReac Type Severity Reaction Status Date / Time Aminoglycosides Allergy Intermediate rash Verified 10/08/22 13:32 neomycin Allergy Intermediate RASH Verified 10/08/22 13:32 nickel Allergy Intermediate rash Verified 10/08/22 13:32 piroxicam Allergy Intermediate RASH Verified 10/08/22 13:32 polymyxin B Allergy Intermediate rash Verified 10/08/22 13:32 house dust Allergy Mild Sneezing Verified 10/08/22 13:32 oxycodone [From Roxicodone] AdvReac Mild Shakiness Verified 10/08/22 13:32 Ppovkto-AWR-UtY Reductase AdvReac Mild MUSCLE AND Verified 10/08/22 13:32 Inhibitor JOINT PAIN [Amzsanx-Zmi-Mjq Reductase Inhibitor] Consultations 10/26/22 11:08 ED Decision to Admit Stat 10/30/22 07:25 Consult EMA signal worker Routine Ordered Studies 10/26/22 08:58 CT chest diagnostic w con Stat Hospital Course (1) COVID-19: Shortness of breath, weakness 2/2 COVID-19 with hypoxic respiratory failure requiring 2 L of oxygen COVID-positive on admission. Requiring 2 L of nasal cannula oxygen. Flu/RSV negative No leukocytosis, hemoglobin 12, platelet 247 Creatinine baseline approximately 1.3, admitting creatinine 1.27. Lactate normal on admission No transaminitis Procalcitonin normal TSH normal -CT showed no consolidation consistent with pneumonia. No evidence of superimposed pneumonia on CT, Pro-Lucas negative, no leukocytosis. We will treat as viral pneumonia, defer additional antibiotics at this time. Continue Lasix p.o. in the setting of increased pulmonary vascular congestion No more hypoxic Asymptomatic today Discontinued IV Decadron and remdesivir Discharge today (2) Acute urinary retention: Acute urinary retention Most likely related to opioids History of constipation, patient also recently increased hydrocodone from 5 to 7.5 mg dosing Patient is now off of hydrocodone. Recommend that she stop using the 7.5 mg of hydrocodone. Advised to use 5 mg hydrocodone very conservatively. Resolved Kirk has been removed and the patient is voiding on her own. UA is not infected appearing (3) Atrial fibrillation: Atrial fibrillation Continued on metoprolol 25 mg twice daily Continue Xarelto 15 mg daily. Previously on dofetilide however this was discontinued at prior cardiology visit for rate control strategy benefits Admitting EKG: A-fib, QTc 413, LAD, no acute T wave inversion or ST segment changes Rate controlled now on home dose of metoprolol. (4) Diastolic CHF: dCHF with preserved ejection fraction, no acute exacerbation No orthopnea. No overt pulmonary edema, some lower ankle edema. No elevated creatinine. Prefer dry status in the setting of COVID, got 1 dose of IV Lasix. Now continued on home dose of Lasix p.o. Low-salt diet Daily weights (5) CKD (chronic kidney disease), stage III: Renal function at baseline on admission, trend BMP daily Admitting creatinine 1.27. Creatinine still at baseline. 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 Deferred SGLT2 addition in the past, patient prefers simplified regimen. Last A1c 6.1% well controlled 08/17/2022 Significantly different weight-based versus basal based dosing parameters. Will place on basal bolus with conservative weight-based parameters, pharmacy consulted for adjustments in the setting of significant difference and with steroid use. Goal BSG [id number], glucose checks AC/at bedtime Chronic lumbar back pain w radiculopathy Was as outpatient with epidural steroid injections with about 80% relief at last visit 09/2022 Cymbalta 60 mg daily. Patient does get significant relief which minimizes her narcotic use with NSAIDs, will continue ibuprofen 3 times daily and hold if evidence of NATASHA Continue gabapentin 800 mg morning, 300 mg noon, 800 mg evening Hydrocodone adjusted to 5 mg oxycodone third-line, dose reduced as suspect this was contributing to acute and new urinary retention with recent increase in dose as outpatient Hypothyroidism Continue Synthroid 150 mcg daily TSH wnl Hyperlipidemia Continue fenofibrate GERD Probiotic daily, rabeprazole continued Recent GERD symptoms not present Insomnia Hydroxyzine 25 mg nightly, trazodone as needed. If patient sedated, trial conversion hydroxyzine to melatonin Hypercalcemia, hyperparathyroidism Deferred parathyroidectomy, serial monitoring, calcium trended DVT PPx: Anticoagulated, continue Xarelto Diet: Heart healthy, low-salt, DM 2 CODE STATUS: Full code (7) Hypertension: (8) Hyperlipidemia: (9) Hypothyroidism: (10) Atrial fibrillation with slow ventricular response: (11) GERD (gastroesophageal reflux disease): (12) Morbid obesity with BMI of 40.0-44.9, adult: Weight loss counseling (13) Generalized weakness: PT/OT involved Case management involved Patient says that she was told by rehabilitation case coordinator that can go home with home health services. Plan Disposition: Likely discharge in a day or 2 Total Time Total Time Spent Total Time Spent (In Minutes): 35 Discharge Plan Discharge Items Patient Disposition: Home - Home Health Services Reason For Visit: COVID, AHRF, URINARY RETENTION Discharge Diagnosis: COVID-19 Acute urinary retention secondary to higher dose of narcotics Activity: Resume your previous activity Non-emergency contact: Primary Care Provider Call non-emergency contact if: you have any medication questions and your symptoms worsen Follow-up/Referrals: Dirk Cooper, [Primary Care Provider] - 11/04/22 9:20 am (Please arrive 15 minutes prior to appointment) Diet: Carb Consistent or DM2 and Heart Healthy Addtl Attending Provider Instructions: Advised to follow-up with PCP in 1 week Advised to follow-up [facility] in 1 week Pending Studies at Discharge: No Stand-Alone Forms: My Musations, Pain - Opioid Pain Management Medications and DC Order Prescriptions: Continued (DME) CPAP Machine Misc See Rx Instructions .Route Rx Instructions: As directed naloxone [Narcan] 4 mg/actuation spray,non-aerosol 1 spray intranasal Q2M PRN (Reason: opioid overdose) Qty: 2 0RF Rx Instructions: administer 1 dose into ONE nostril; alternate nostrils w each dose until assi stance arrives albuterol sulfate 90 mcg/actuation HFA aerosol inhaler 1 - 2 puffs inhalation Q4H PRN (Reason: shortness of breath or wheezing) Qty: 8.5 1RF cinacalcet [Sensipar] 30 mg tablet 30 mg PO DAILY Qty: 90 1RF Combivent Respimat 20-100 mcg/actuation mist 1 puff inhalation Q4H PRN (Reason: shortness of breath or wheezing) Qty: 4 5RF (DME) 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 See Rx Instructions .Route .MEDSUPPLY Qty: 1 0RF Rx Instructions: As directed amlodipine 5 mg tablet 5 mg PO PM Qty: 90 3RF Lantus Solostar U-100 Insulin 100 unit/mL (3 mL) insulin pen 6 unit subcut HS 30 Days Qty: 3 5RF Rx Instructions: or as directed losartan 100 mg tablet 100 mg PO QAM Qty: 90 3RF fenofibrate nanocrystallized 145 mg tablet 145 mg PO DAILY Qty: 90 3RF hydroxyzine HCl 25 mg tablet 25 - 50 mg PO HS PRN (Reason: itching) Qty: 180 1RF Hold Instructions: trazodone levothyroxine 150 mcg tablet 150 mcg PO DAILYBB Qty: 90 1RF Rx Instructions: Take in AM on empty stomach with water 30 min prior to any oral intake. hydralazine 25 mg tablet 25 mg PO TID Qty: 270 3RF rivaroxaban 15 mg tablet 15 mg PO DAILY Qty: 30 5RF rabeprazole [AcipHex] 20 mg tablet,delayed release (DR/EC) 20 mg PO DAILY Qty: 30 5RF metformin 1,000 mg tablet See Rx Instructions .ROUTE .COMPLEX Qty: 180 3RF Dose Instruction: TAKE 1 TABLET BY MOUTH TWICE DAILY Rx Instructions: TAKE 1 TABLET BY MOUTH TWICE DAILY duloxetine 60 mg capsule,delayed release(DR/EC) 60 mg PO HS Qty: 90 1RF gabapentin 800 mg tablet 800 mg PO TID Qty: 90 5RF trazodone 50 mg tablet 50 mg PO DAILY Qty: 30 11RF chlorzoxazone 500 mg tablet See Rx Instructions .ROUTE .COMPLEX Qty: 90 1RF Dose Instruction: TAKE 1 TABLET BY MOUTH THREE TIMES DAILY IF NEEDED FOR LEG PAIN Rx Instructions: TAKE 1 TABLET BY MOUTH THREE TIMES DAILY IF NEEDED FOR LEG PAIN (DME) pen needle, diabetic [BD Ultra-Fine Shanel Pen Needle] 32 gauge x 5/32" needle See Rx Instructions .ROUTE .MEDSUPPLY Qty: 100 3RF Rx Instructions: Use one daily with insulin metoprolol tartrate 50 mg tablet 25 mg PO BID furosemide 20 mg tablet 20 mg PO DAILY fluticasone propionate [Flonase Allergy Relief] 50 mcg/actuation spray,suspension 1 spray INTNAS DAILY PRN (Reason: allergy symptoms) ibuprofen 600 mg tablet 600 mg PO TID (DME) OneTouch Verio test strips Strip See Rx Instructions .Route Rx Instructions: Test blood sugar daily Flovent HFA 110 mcg/actuation HFA aerosol inhaler 1 puff inhalation BID PRN (Reason: Wheezing) ondansetron 4 mg tablet,disintegrating 4 mg PO Q8H PRN (Reason: nausea and vomiting) Qty: 30 0RF alpha lipoic acid 100 mg capsule 300 mg PO BID acetaminophen 500 mg Tablet 1,000 mg PO Q8 PRN (Reason: fever or pain) Qty: 30 0RF thiamine HCl (vitamin B1) [Vitamin B-1] 50 mg Tablet 50 mg PO QAM Qty: 30 0RF amlodipine 2.5 mg tablet 2.5 mg PO QAM Discontinued hydrocodone-acetaminophen 7.5-325 mg tablet 1 tab PO TID PRN (Reason: pain ) Qty: 42 0RF Discharge Orders: Discharge Order (Routine); Ordered 10/30/22 Ordered By: Yudith Garber Admission Data Admit Date/Time: 10/26/22 11:58 Attending Provider: Yudith Garber Admit Provider: Thom Acosta Primary Care Provider: Dirk Cooper Other Providers: Thom Acosta Other Interventions: Discharge Summary Assessment (RN) Last Done: 10/30/22 11:38 Coding Level of Care Code 16850 INP/OBS DISCH >30 MIN Diagnoses COVID-19 U07.1 Acute urinary retention R33.8 Atrial fibrillation I48.91 Diastolic CHF I50.30 CKD (chronic kidney disease), stage III N18.3 Type 2 diabetes mellitus with diabetic peripheral angiopathy without gangrene E11.51 Hypertension I10 Hyperlipidemia E78.5 Hypothyroidism E03.9 Atrial fibrillation with slow ventricular response I48.91 GERD (gastroesophageal reflux disease) K21.9 Morbid obesity with BMI of 40.0-44.9, adult E66.01; Z68.41 Generalized weakness R53.1
[2022-10-30] MEDS: REMDESIVIR 100 MG in SODIUM CHLORIDE 0.9% 230 ML IV SCH (11:41)
[2022-10-30] MEDS: ONDANSETRON 4 MG OD TAB PO PRN (12:17)
[2022-10-30] MEDS: GABAPENTIN 300 MG CAP PO SCH (12:18)
== END 2022-10-30 15:46 | disposition home health service (06) | DRG 177 ==
LOC: ED 06:45 → 2S 11:58 → SUATTDRO 11:58 → 2S 12:41

== ENCOUNTER 2023-02-09 07:19 | Inpatient (IN) ==
--- NOTE | 2023-02-09 07:42 | Emergency Department Note ---
History of Present Illness General Chief complaint: Fall Time Seen by Provider: 02/09/23 07:22 History of Present Illness 77-year-old female with past medical history significant for CKD, A-fib on Xarelto, type 2 diabetes, dementia, CHF, HTN, HLD, hypothyroidism who presents to the emergency department via EMS for evaluation of frequent falls and generalized weakness. at bedside who did assist with history. Patient reports in the last 12 hours she has had 2 falls. She states last night she slid off the end of the bed and then this morning was up walking around and her legs felt weak causing her to fall forward onto her hands or knees. did not witness first fall but found her on ground beside bed when she called for him last night. This morning around 3a states patient was walking to bathroom with walker and slowly fell to ground due to legs feeling weak. She denies hitting her head or any loss of consciousness. She is on Xarelto for Afib. She does note an episode of dizziness when she went to lay in bed yesterday and described it as the room spinning. She has not had any since. states he's noticed an episode of staring off yesterday. Patient reports feeling very tired at that time. They denies weakness/numbness/tingling on one side of the body or other, facial droop, slurred speech, headache, visual changes, tinnitus. No associated chest pain, shortness of breath, abdominal pain. She denies recent illness including fever/chills, nausea/vomiting, cough, diarrhea/constipation, urinary symptoms. Denies hematuria, hematochezia or melena. She denies any pain anywhere at this time. She reports living at home with her and is typically ambulatory and walks with a walker. notes her food intake has decreased over the last few days. He reports change in lyrica dose otherwise no medication changes. Patient reports wearing CPAP at home. She has in home physical therapy. Home Medications Medication Instructions Recorded Confirmed Type albuterol sulfate 90 mcg/actuation 1 - 2 puffs inhalation Q4H PRN 06/15/19 02/09/23 Rx aerosol inhaler shortness of breath or wheezing #8.5 grams fluticasone propionate 50 1 spray intranasal DAILY PRN 06/05/20 02/09/23 History mcg/actuation nasal allergy symptoms spray,suspension (Flonase Allergy Relief) acetaminophen 500 mg tablet 1,000 mg PO Q8 PRN fever or pain 09/25/20 02/09/23 Rx #30 tabs thiamine HCl (vitamin B1) 50 mg 50 mg PO QAM #30 tabs 09/25/20 02/09/23 Rx tablet (Vitamin B-1) cinacalcet 30 mg tablet (Sensipar) 30 mg PO DAILY #90 tabs 10/28/20 02/09/23 Rx ipratropium 20 mcg-albuterol 100 1 puff inhalation Q4H PRN 10/28/20 02/09/23 Rx mcg/actuation mist for inhalation shortness of breath or wheezing #4 (Combivent Respimat) grams amlodipine 5 mg tablet 5 mg PO PM #90 tabs 05/13/21 02/09/23 Rx ibuprofen 600 mg tablet 600 mg PO TID PRN Pain 05/28/21 02/09/23 History furosemide 20 mg tablet 20 mg PO DAILY 09/15/21 02/09/23 History fluticasone propionate 110 1 puff inhalation BID PRN Wheezing 02/26/22 02/09/23 History mcg/actuation HFA aerosol inhaler (Flovent HFA) fenofibrate nanocrystallized 145 145 mg PO DAILY #90 tabs 05/26/22 02/09/23 Rx mg tablet hydralazine 25 mg tablet 25 mg PO TID #270 tabs 07/07/22 02/09/23 Rx rabeprazole 20 mg tablet,delayed 20 mg PO DAILY #30 tabs 07/20/22 02/09/23 Rx release (AcipHex) rivaroxaban 15 mg tablet 15 mg PO DAILY #30 tabs 07/20/22 02/09/23 Rx duloxetine 60 mg capsule,delayed 60 mg PO HS #90 caps 08/05/22 02/09/23 Rx release alpha lipoic acid 100 mg capsule 300 mg PO BID 08/17/22 02/09/23 History pen needle, diabetic 32 gauge x #100 ea 09/20/22 02/09/23 Rx 5/32" (BD Ultra-Fine Shanel Pen Needle) amlodipine 2.5 mg tablet 2.5 mg PO QAM 10/26/22 02/09/23 History ondansetron 4 mg disintegrating 4 mg PO Q8H PRN nausea and 12/11/22 02/09/23 Rx tablet vomiting #30 tabs pregabalin 75 mg capsule (Lyrica) 75 mg PO .COMPLEX #120 caps 12/24/22 02/09/23 Rx levothyroxine 150 mcg tablet 150 mcg PO DAILYBB #90 tabs 01/04/23 02/09/23 Rx insulin glargine 100 unit/mL (3 6 unit (0.06 mL) subcut HS 30 days 02/05/23 02/09/23 Rx mL) subcutaneous pen (Lantus #3 mL Solostar U-100 Insulin) chlorzoxazone 500 mg tablet 500 mg PO TID 02/09/23 02/09/23 History hydroxyzine HCl 25 mg tablet 50 mg PO HS PRN itching 02/09/23 02/09/23 History losartan 100 mg tablet 100 mg PO DAILY 02/09/23 02/09/23 History metoprolol tartrate 25 mg tablet 25 mg PO BID 02/09/23 02/09/23 History trazodone 50 mg tablet 50 mg PO HS 02/09/23 02/09/23 History triamcinolone acetonide 0.1 % 1 applic topical BID PRN .flare ups 02/09/23 02/09/23 History topical ointment Allergies Allergy/AdvReac Type Severity Reaction Status Date / Time Aminoglycosides Allergy Intermediate rash Verified 02/09/23 15:04 neomycin Allergy Intermediate RASH Verified 02/09/23 15:04 nickel Allergy Intermediate rash Verified 02/09/23 15:04 piroxicam Allergy Intermediate RASH Verified 02/09/23 15:04 polymyxin B Allergy Intermediate rash Verified 02/09/23 15:04 house dust Allergy Mild Sneezing Verified 02/09/23 15:04 oxycodone [From Roxicodone] AdvReac Mild Shakiness Verified 02/09/23 15:04 [id number]-[id number]-CvD Reductase AdvReac Mild MUSCLE AND Verified 02/09/23 15:04 Inhibitor JOINT PAIN [Xspsdvv-Ldk-Llq Reductase Inhibitor] Past Med/Surg History Medical History Acquired claw toe of left foot Acquired claw toe of right foot Acquired hallux valgus of right foot Allergic rhinitis Atrial fibrillation Atrial fibrillation with slow ventricular response Callus Chest pain Chronic back pain CKD (chronic kidney disease), stage III Controlled type 2 diabetes mellitus with neurologic complication, with long-term current use of insulin Degenerative disc disease Diabetic peripheral neuropathy Dysesthesia Dysphagia Fall Familial tremor GERD (gastroesophageal reflux disease) GERD (gastroesophageal reflux disease) Graves disease WITH RADIOACTIVE IODINE Hallux valgus (acquired), left foot Hypercalcemia Hyperlipidemia Hyperparathyroidism Hypertension Hypothyroidism Insomnia Loss of protective sensation of skin of deformed foot Microalbuminuria Morbid obesity Osteoarthritis Primary hyperparathyroidism Seborrheic keratosis Septicemia TREATED AT [facility] (BEGINNING OF 2017) AFFECTED RIGHT LEG. Sinus bradycardia Sleep apnea CPAP Toxic encephalopathy Type 2 diabetes mellitus with diabetic peripheral angiopathy without gangrene Surgical History Fusion of spine X3 L1-L5 History of adenoidectomy History of appendectomy LAP History of bilateral tubal ligation History of cataract surgery BILATERAL History of cholecystectomy LAP History of colonoscopy History of esophagogastroduodenoscopy (EGD) History of herniorrhaphy UMBILICAL REPAIR x 2 History of tonsillectomy History of total hip arthroplasty BILATERAL History of total knee replacement BILATERAL History of total shoulder replacement RIGHT Nausea and vomiting after administration of anesthetic agent Family History Father Family history of diabetes mellitus Arthritis Hypertension Stroke Lung disease Obesity Diabetes Mother Arthritis Diabetes Hypertension Stroke Obesity Depression Brother Depression Suicide Aunt Uterine cancer Grandfather (Maternal) Colorectal cancer Aunt Colorectal cancer Denies family history of Prostate cancer Myocardial infarction Breast cancer Social History Smoking Status: Unknown if ever smoked Second Hand Exposure: No; Do You Dip or Chew Tobacco: No; Hx Alcohol Use: No Hx Substance Use: No Preferred Language: Lithuanian Communication Ability: Effective Visual Impairment: Limited Hearing Ability: Normal 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 Dyeing Machine Tender Required: No Beliefs That Will Affect Care: None marital status: Current Living Situation: Spouse current occupational status: retired Feels Safe at Home: Yes Childhood Exposure to Second-Hand Smoke: Yes Diet: diabetic and regular Dental Care, Regularly: Yes Physical Activity Frequency: 3-4 Times per Week Seatbelt Use: always Sunscreen Use: Yes Assistive Devices: Oxygen - at Night, Stair Lift and Walker Physical Exam Vital Signs Vital Signs - 24 hr 02/09/23 07:28 02/09/23 07:33 02/09/23 07:29 Temperature 36.9 C Temperature Source Oral Pulse Rate 83 86 88 Pulse Rhythm Irregular Pulse Strength Normal Respiratory Rate 15 17 Respiratory Effort / Characteristics Non-Labored Spontaneous Respiratory Depth Normal Respiratory Pattern Regular Blood Pressure 149/111 H Blood Pressure Mean 123 Blood Pressure Position Semi-fowlers Pulse Oximetry 94 93 Oxygen Delivery Method Room Air Room Air Sepsis Recent Fever Within 48 Hours No Sepsis New/Unexplained Change in Mental Status No Sepsis Action Taken by Nursing No Action Required 02/09/23 12:03 Temperature Temperature Source Pulse Rate 97 H Pulse Rhythm Pulse Strength Respiratory Rate Respiratory Effort / Characteristics Respiratory Depth Respiratory Pattern Blood Pressure Blood Pressure Mean Blood Pressure Position Pulse Oximetry Oxygen Delivery Method Sepsis Recent Fever Within 48 Hours Sepsis New/Unexplained Change in Mental Status Sepsis Action Taken by Nursing Constitutional: alert and oriented x3. no acute distress. nontoxic HEENT: normocephalic, atraumatic. normal conjunctiva.PERRLA. EOM's grossly intact. TMs pearly sin without effusion. Pharynx pink without exudate. Tonsils nonenlarged. Mucus membranes moist Neck: neck is supple, nontender. midline C-spine nontender Respiratory: lungs are clear to auscultation without wheezes, rhonchi, or rales bilaterally. equal chest rise. normal respiratory effort, no accessory muscle use. Cardiovascular: normal heart sounds without murmur. regular rate and rhythm. GI: abdomen is soft, nontender. No palpable masses. No rebound tenderness or guarding. No CVA tenderness MSK: moves all 4 extremities spontaneously. Strength +4 and equal throughout all 4 extremities Peripheral vascular: extremities warm and well perfused with palpable pedal pulses. No peripheral edema. Neuro: without focal neuro deficits. answers questions appropriately, follows commands. CNII-XII intact. Speech clear, tongue midline, without facial droop. Strength equal throughout all for extremities. Psych:appropriate mood and affect. Course Reevaluation(s) Reevaluation #1: 1000a: resting comfortably in bed. Requesting something for headache. Tylenol ordered. Unable to obtain IV access, labs still pending. Straight cath ordered for UA. Reevaluation #2: resting comfortably. Placed on NC for hypoxia while sleeping. History of CPAP. Updated on labs and imaging results. Discussed treatment options with patient and . At this time recommending admission for inpatient rehab. They were agreeable Administered Medications Discontinued Medications Acetaminophen (Acetaminophen 500 Mg Tab) 1,000 mg PO NOW STA Stop: 02/09/23 10:05 Last Admin: 02/09/23 10:30 Dose: 1,000 mg Documented By: HEATHER Sodium Chloride (Nss) 500 mls @ 999 mls/hr IV .Q31M FRAN Stop: 02/09/23 08:15 Last Infusion: 02/09/23 08:43 Dose: 0 mls/hr Documented By: Admin: 02/09/23 08:13 Dose: 999 mls/hr Documented By: HEATHER Medical Decision Making Differential Diagnosis Dehydration, electrolyte abnormalities, anemia, infection, viral URI, ACS, CVA, vertigo as well as other pathologies Laboratory Data Attestation: I reviewed the patient's lab results. 02/09/23 10:12 02/09/23 10:12 Lab Results 02/09/23 02/09/23 02/09/23 Range/Units 10:12 10:12 10:12 WBC 15.75 H (4.8-10.8) K/ul RBC 4.72 (4.20-5.40) M/uL Hgb 13.3 (12.0-16.0) g/dl Hct 41.5 (37.0-47.0) % MCV 87.9 (80.0-100.0) fL MCH 28.2 (25.0-34.0) pg MCHC 32.0 (32.0-36.0) g/dL RDW Std Deviation 43.6 (36.4-46.3) fL RDW Coeff of Jeanette 13.5 (11.5-14.5) % Plt Count 235 (130-400) K/uL MPV 10.7 (9.4-12.4) fL Immature Gran % (Auto) 0.6 % Neut % (Auto) 81.3 % Lymph % (Auto) 6.8 % Richardson % (Auto) 11.0 % Eos % (Auto) 0.1 % Baso % (Auto) 0.2 % Neut # (Auto) 12.81 H (1.40-6.50) K/uL Lymph # (Auto) 1.07 L (1.2-3.4) K/uL Richardson # (Auto) 1.73 H (0.11-0.59) K/uL Eos # (Auto) 0.01 (0-0.50) K/uL Baso # (Auto) 0.03 (0-0.2) K/uL Immature Gran # (Auto) 0.10 (0.01-0.20) K/uL ESR (0-30) mm/hr PT 11.3 (9.0-12.0) Seconds INR 1.0 (0.9-1.1) APTT 24.4 (21.0-31.0) Seconds PTT Ratio 0.9 VBG pH (7.36-7.41) VBG pCO2 (38-50) mmHg VBG pO2 mmHg VBG HCO3 mmol/L VBG O2 Saturation % VBG Base Excess mEq/L Sodium 140 (136-145) mmol/L Potassium 4.5 (3.5-5.1) mmol/L Chloride 102 (98-107) mmol/L Carbon Dioxide 29 (21-32) mmol/L Anion Gap 9 (3-11) BUN 28 H (6-23) mg/dl Creatinine 1.53 H (0.6-1.2) mg/dl Est Cr Clr Drug Dosing 42.8 ml/min Est GFR ( Amer) 37.6 ml/min Est GFR (Non-Af Amer) 32.5 ml/min BUN/Creatinine Ratio 18.3 (10-20) Glucose 110 H (70-99(Fasting)) mg/dl Calcium 10.4 H (8.6-10.3) mg/dl Total Bilirubin 0.7 (0.2-1.0) mg/dl AST 29 (13-39) U/L ALT 30 (7-52) U/L Alkaline Phosphatase 77 (34-104) U/L Ammonia (18-72) umol/L Total Creatine Kinase (26-192) U/L Troponin I High Sens 8.4 (0-14) pg/ml C-Reactive Protein (0-0.5) mg/dl Total Protein 7.2 (6.0-8.3) gm/dl Albumin 4.2 (3.4-5.0) gm/dl Globulin 3.0 (2.5-4.0) gm/dl Albumin/Globulin Ratio 1.4 (0.9-2) Vitamin B12 (180-914) pg/ml Procalcitonin (0-0.5) ng/ml Urine Color Urine Appearance (Clear) Urine pH (4.5-7.5) Ur Specific [place] (1.000-1.030) Urine Protein (Negative) Urine Glucose (UA) (Negative) Urine Ketones (Negative) Urine Blood (Negative) Urine Nitrite (Negative) Urine Bilirubin (Negative) Urine Urobilinogen (Negative) Ur Leukocyte Esterase (Negative) Urine WBC (Auto) (0-5) /hpf Urine RBC (Auto) (0-4) /hpf U Hyaline Cast (Auto) (0-5) /lpf U Epithel Cells (Auto) (0-5) /lpf Urine Bacteria (Auto) (Negative) 02/09/23 02/09/23 02/09/23 Range/Units 10:49 12:43 12:43 WBC (4.8-10.8) K/ul RBC (4.20-5.40) M/uL Hgb (12.0-16.0) g/dl Hct (37.0-47.0) % MCV (80.0-100.0) fL MCH (25.0-34.0) pg MCHC (32.0-36.0) g/dL RDW Std Deviation (36.4-46.3) fL RDW Coeff of Jeanette (11.5-14.5) % Plt Count (130-400) K/uL MPV (9.4-12.4) fL Immature Gran % (Auto) % Neut % (Auto) % Lymph % (Auto) % Richardson % (Auto) % Eos % (Auto) % Baso % (Auto) % Neut # (Auto) (1.40-6.50) K/uL Lymph # (Auto) (1.2-3.4) K/uL Richardson # (Auto) (0.11-0.59) K/uL Eos # (Auto) (0-0.50) K/uL Baso # (Auto) (0-0.2) K/uL Immature Gran # (Auto) (0.01-0.20) K/uL ESR 59 H (0-30) mm/hr PT (9.0-12.0) Seconds INR (0.9-1.1) APTT (21.0-31.0) Seconds PTT Ratio VBG pH (7.36-7.41) VBG pCO2 (38-50) mmHg VBG pO2 mmHg VBG HCO3 mmol/L VBG O2 Saturation % VBG Base Excess mEq/L Sodium (136-145) mmol/L Potassium (3.5-5.1) mmol/L Chloride (98-107) mmol/L Carbon Dioxide (21-32) mmol/L Anion Gap (3-11) BUN (6-23) mg/dl Creatinine (0.6-1.2) mg/dl Est Cr Clr Drug Dosing ml/min Est GFR ( Amer) ml/min Est GFR (Non-Af Amer) ml/min BUN/Creatinine Ratio (10-20) Glucose (70-99(Fasting)) mg/dl Calcium (8.6-10.3) mg/dl Total Bilirubin (0.2-1.0) mg/dl AST (13-39) U/L ALT (7-52) U/L Alkaline Phosphatase (34-104) U/L Ammonia (18-72) umol/L Total Creatine Kinase 82 (26-192) U/L Troponin I High Sens (0-14) pg/ml C-Reactive Protein 17.30 H (0-0.5) mg/dl Total Protein (6.0-8.3) gm/dl Albumin (3.4-5.0) gm/dl Globulin (2.5-4.0) gm/dl Albumin/Globulin Ratio (0.9-2) Vitamin B12 (180-914) pg/ml Procalcitonin (0-0.5) ng/ml Urine Color Dark Yellow Urine Appearance Clear (Clear) Urine pH 6.5 (4.5-7.5) Ur Specific [place] 1.021 (1.000-1.030) Urine Protein 3+ H (Negative) Urine Glucose (UA) Negative (Negative) Urine Ketones Negative (Negative) Urine Blood Negative (Negative) Urine Nitrite Negative (Negative) Urine Bilirubin Negative (Negative) Urine Urobilinogen Negative (Negative) Ur Leukocyte Esterase Negative (Negative) Urine WBC (Auto) 1-5 (0-5) /hpf Urine RBC (Auto) 0-4 (0-4) /hpf U Hyaline Cast (Auto) 1-5 (0-5) /lpf U Epithel Cells (Auto) 20-30 H (0-5) /lpf Urine Bacteria (Auto) Negative (Negative) 02/09/23 02/09/23 02/09/23 Range/Units 12:43 12:43 12:55 WBC (4.8-10.8) K/ul RBC (4.20-5.40) M/uL Hgb (12.0-16.0) g/dl Hct (37.0-47.0) % MCV (80.0-100.0) fL MCH (25.0-34.0) pg MCHC (32.0-36.0) g/dL RDW Std Deviation (36.4-46.3) fL RDW Coeff of Jeanette (11.5-14.5) % Plt Count (130-400) K/uL MPV (9.4-12.4) fL Immature Gran % (Auto) % Neut % (Auto) % Lymph % (Auto) % Richardson % (Auto) % Eos % (Auto) % Baso % (Auto) % Neut # (Auto) (1.40-6.50) K/uL Lymph # (Auto) (1.2-3.4) K/uL Richardson # (Auto) (0.11-0.59) K/uL Eos # (Auto) (0-0.50) K/uL Baso # (Auto) (0-0.2) K/uL Immature Gran # (Auto) (0.01-0.20) K/uL ESR (0-30) mm/hr PT (9.0-12.0) Seconds INR (0.9-1.1) APTT (21.0-31.0) Seconds PTT Ratio VBG pH 7.38 (7.36-7.41) VBG pCO2 48 (38-50) mmHg VBG pO2 30 mmHg VBG HCO3 28 mmol/L VBG O2 Saturation < 60.0 % VBG Base Excess 2.5 mEq/L Sodium (136-145) mmol/L Potassium (3.5-5.1) mmol/L Chloride (98-107) mmol/L Carbon Dioxide (21-32) mmol/L Anion Gap (3-11) BUN (6-23) mg/dl Creatinine (0.6-1.2) mg/dl Est Cr Clr Drug Dosing ml/min Est GFR ( Amer) ml/min Est GFR (Non-Af Amer) ml/min BUN/Creatinine Ratio (10-20) Glucose (70-99(Fasting)) mg/dl Calcium (8.6-10.3) mg/dl Total Bilirubin (0.2-1.0) mg/dl AST (13-39) U/L ALT (7-52) U/L Alkaline Phosphatase (34-104) U/L Ammonia (18-72) umol/L Total Creatine Kinase (26-192) U/L Troponin I High Sens (0-14) pg/ml C-Reactive Protein (0-0.5) mg/dl Total Protein (6.0-8.3) gm/dl Albumin (3.4-5.0) gm/dl Globulin (2.5-4.0) gm/dl Albumin/Globulin Ratio (0.9-2) Vitamin B12 284 (180-914) pg/ml Procalcitonin 0.19 (0-0.5) ng/ml Urine Color Urine Appearance (Clear) Urine pH (4.5-7.5) Ur Specific [place] (1.000-1.030) Urine Protein (Negative) Urine Glucose (UA) (Negative) Urine Ketones (Negative) Urine Blood (Negative) Urine Nitrite (Negative) Urine Bilirubin (Negative) Urine Urobilinogen (Negative) Ur Leukocyte Esterase (Negative) Urine WBC (Auto) (0-5) /hpf Urine RBC (Auto) (0-4) /hpf U Hyaline Cast (Auto) (0-5) /lpf U Epithel Cells (Auto) (0-5) /lpf Urine Bacteria (Auto) (Negative) 02/09/23 Range/Units 12:55 WBC (4.8-10.8) K/ul RBC (4.20-5.40) M/uL Hgb (12.0-16.0) g/dl Hct (37.0-47.0) % MCV (80.0-100.0) fL MCH (25.0-34.0) pg MCHC (32.0-36.0) g/dL RDW Std Deviation (36.4-46.3) fL RDW Coeff of Jeanette (11.5-14.5) % Plt Count (130-400) K/uL MPV (9.4-12.4) fL Immature Gran % (Auto) % Neut % (Auto) % Lymph % (Auto) % Richardson % (Auto) % Eos % (Auto) % Baso % (Auto) % Neut # (Auto) (1.40-6.50) K/uL Lymph # (Auto) (1.2-3.4) K/uL Richardson # (Auto) (0.11-0.59) K/uL Eos # (Auto) (0-0.50) K/uL Baso # (Auto) (0-0.2) K/uL Immature Gran # (Auto) (0.01-0.20) K/uL ESR (0-30) mm/hr PT (9.0-12.0) Seconds INR (0.9-1.1) APTT (21.0-31.0) Seconds PTT Ratio VBG pH (7.36-7.41) VBG pCO2 (38-50) mmHg VBG pO2 mmHg VBG HCO3 mmol/L VBG O2 Saturation % VBG Base Excess mEq/L Sodium (136-145) mmol/L Potassium (3.5-5.1) mmol/L Chloride (98-107) mmol/L Carbon Dioxide (21-32) mmol/L Anion Gap (3-11) BUN (6-23) mg/dl Creatinine (0.6-1.2) mg/dl Est Cr Clr Drug Dosing ml/min Est GFR ( Amer) ml/min Est GFR (Non-Af Amer) ml/min BUN/Creatinine Ratio (10-20) Glucose (70-99(Fasting)) mg/dl Calcium (8.6-10.3) mg/dl Total Bilirubin (0.2-1.0) mg/dl AST (13-39) U/L ALT (7-52) U/L Alkaline Phosphatase (34-104) U/L Ammonia 18.0 (18-72) umol/L Total Creatine Kinase (26-192) U/L Troponin I High Sens (0-14) pg/ml C-Reactive Protein (0-0.5) mg/dl Total Protein (6.0-8.3) gm/dl Albumin (3.4-5.0) gm/dl Globulin (2.5-4.0) gm/dl Albumin/Globulin Ratio (0.9-2) Vitamin B12 (180-914) pg/ml Procalcitonin (0-0.5) ng/ml Urine Color Urine Appearance (Clear) Urine pH (4.5-7.5) Ur Specific [place] (1.000-1.030) Urine Protein (Negative) Urine Glucose (UA) (Negative) Urine Ketones (Negative) Urine Blood (Negative) Urine Nitrite (Negative) Urine Bilirubin (Negative) Urine Urobilinogen (Negative) Ur Leukocyte Esterase (Negative) Urine WBC (Auto) (0-5) /hpf Urine RBC (Auto) (0-4) /hpf U Hyaline Cast (Auto) (0-5) /lpf U Epithel Cells (Auto) (0-5) /lpf Urine Bacteria (Auto) (Negative) Imaging Data My Impression: CXR per my interpretation without focal consolidation, pneumothorax, pleural effusion Radiologist's Impression: Chest X-Ray 02/09/23 07:33 XR chest 1V portable CLINICAL HISTORY: Frequent falls. COMPARISON STUDY: Chest radiograph and chest CT October 26, 2022. FINDINGS: Right shoulder arthroplasty is incidentally noted. Cardiomegaly is unchanged. There is no evidence for pulmonary edema. No consolidation is present. There is no pneumothorax or pleural effusion. Postoperative findings within the spine are partially imaged. No rib fractures are identified although sensitivity is diminished given this technique. IMPRESSION: No acute cardiopulmonary findings. No change in appearance of the chest. ACT 112: Negative or not required by law. Electronically signed by: Kd Maguire M.D. 02/09/2023 8:[address] 02/09/23 12:06 CT OF THE HEAD WITHOUT CONTRAST CLINICAL HISTORY: recurrent falls ?ICH COMPARISON STUDY: Head CT March 10, 2022 and MRI of the brain June 25, 2020. CT DOSE: 625.80 mGy.cm TECHNIQUE: Helical axial images of the head were obtained without IV contrast. Automated exposure control was utilized for the study. A dose lowering technique was utilized adhering to the principles of ALARA. FINDINGS: No acute intracranial hemorrhage, midline shift or mass effect is present. White matter hypodensities are unchanged and favor small vessel disease. The ventricular system is unremarkable. The basal cisterns are patent. No extra-axial collections are present. There are no findings to suggest acute dural sinus thrombosis or acute territorial infarct. No significant calvarial abnormalities are present. Visualized portions of the sinuses and mastoid air cells are clear. IMPRESSION: 1. No acute intracranial findings. No change in appearance of the brain. 2. No acute calvarial fracture. ACT 112: Negative or not required by law. Electronically signed by: Kd Maguire M.D. 02/09/2023 1:58 PM MDM Narrative 77-year-old female who presents to the emergency department accompanied by for evaluation of frequent falls and generalized weakness. Review of pertinent visits and past medical history performed. Vital signs in ED demonstrate hypertensive otherwise within normal limits. She is afebrile. IV access was established and labs were obtained. CBC demonstrates leukocytosis of 15 with left shift. No acute anemia. CMP without significant electrolyte abnormalities. Renal function appears at baseline. LFTs unremarkable. Troponin negative. EKG demonstrates A-fib at a rate of 81 bpm without evidence of ischemic changes. Incomplete right bundle branch block. When compared to EK G from 10/2022 no significant changes were found. Chest x-ray was performed and unremarkable. Urinalysis without evidence of infection or blood. Head CT was performed for recent falls on Xarelto and unremarkable. No intracranial hemorrhage or ischemia. On exam, patient is nontoxic-appearing in no acute distress. She is neurologically intact without focal deficits. Lungs are CTA. Abdomen is benign. The remainder of her physical exam was otherwise unremarkable. Patient was hydrated with 500 mL fluids. Upon reevaluation, patient remained stable. She did request something for a headache and given p.o. Tylenol. Patient required being placed on nasal cannula due to low O2 levels when falling asleep. She has history of being on a CPAP. No respiratory distress. Vital signs stable. She and were updated on all exam findings and test results. She does have elevated white count but no obvious infection at this time. No abdominal findings to indicate need for further imaging. We discussed treatment options. Given frequen falls and general weakness, I am recommending admission to hospital for further evaluation and inpatient rehab. has expressed concern for being able to safely care for patient at home. He cannot help her up if she falls and overall generally concerned for any potential injuries if she continues to do so and was agreeable. Case was discussed with hospitalist, Dr. Lynne who graciously excepted patient to his service for further management. Patient was admitted in stable condition. Impression & Plan Generalized weakness, Ambulatory dysfunction, Chronic anticoagulation, Leuko cytosis Discharge Plan Visit Data Chief Complaint: Fall ED Provider: Pankaj Moyer ED Midlevel Provider: Massiel Zaragoza Discharge Problem: Generalized weakness, Ambulatory dysfunction, Chronic anticoagulation, Leukoc ytosis Patient Disposition: Admitted As Inpatient Forms Stand Alone Forms: [facility] Prescriptions Prescriptions: No Action pregabalin [Lyrica] 75 mg capsule 75 mg PO .COMPLEX Qty: 120 2RF Rx Instructions: 75 mg orally BID and 150mg (2 cap) HS; albuterol sulfate 90 mcg/actuation HFA aerosol inhaler 1 - 2 puffs inhalation Q4H PRN (Reason: shortness of breath or wheezing) Qty: 8.5 1RF cinacalcet [Sensipar] 30 mg tablet 30 mg PO DAILY Qty: 90 1RF Rx Instructions: Takes mid-afternoon Combivent Respimat 20-100 mcg/actuation mist 1 puff inhalation Q4H PRN (Reason: shortness of breath or wheezing) Qty: 4 5RF amlodipine 5 mg tablet 5 mg PO PM Qty: 90 3RF fenofibrate nanocrystallized 145 mg tablet 145 mg PO DAILY Qty: 90 3RF Rx Instructions: Takes 1200 hydralazine 25 mg tablet 25 mg PO TID Qty: 270 3RF rivaroxaban 15 mg tablet 15 mg PO DAILY Qty: 30 5RF rabeprazole [AcipHex] 20 mg tablet,delayed release (DR/EC) 20 mg PO DAILY Qty: 30 5RF duloxetine 60 mg capsule,delayed release(DR/EC) 60 mg PO HS Qty: 90 1RF (DME) pen needle, diabetic [BD Ultra-Fine Shanel Pen Needle] 32 gauge x 5/32" needle See Rx Instructions .ROUTE .MEDSUPPLY Qty: 100 3RF Rx Instructions: Use one daily with insulin ondansetron 4 mg tablet,disintegrating 4 mg PO Q8H PRN (Reason: nausea and vomiting) Qty: 30 0RF levothyroxine 150 mcg tablet 150 mcg PO DAILYBB Qty: 90 1RF Rx Instructions: Take in AM on empty stomach with water 30 min prior to any oral intake. insulin glargine [Lantus Solostar U-100 Insulin] 100 unit/mL (3 mL) insulin pen 6 unit subcut HS 30 Days Qty: 3 5RF Rx Instructions: or as directed furosemide 20 mg tablet 20 mg PO DAILY fluticasone propionate [Flonase Allergy Relief] 50 mcg/actuation s pray,suspension 1 spray INTNAS DAILY PRN (Reason: allergy symptoms) ibuprofen 600 mg tablet 600 mg PO TID PRN (Reason: Pain) Flovent HFA 110 mcg/actuation HFA aerosol inhaler 1 puff inhalation BID PRN (Reason: Wheezing) alpha lipoic acid 100 mg capsule 300 mg PO BID acetaminophen 500 mg Tablet 1,000 mg PO Q8 PRN (Reason: fever or pain) Qty: 30 0RF thiamine HCl (vitamin B1) [Vitamin B-1] 50 mg Tablet 50 mg PO QAM Qty: 30 0RF metoprolol tartrate 25 mg tablet 25 mg PO BID trazodone 50 mg tablet 50 mg PO HS chlorzoxazone 500 mg tablet 500 mg PO TID triamcinolone acetonide 0.1 % ointment 1 applic topical BID PRN (Reason: .flare ups) hydroxyzine HCl 25 mg tablet 50 mg PO HS PRN (Reason: itching) losartan 100 mg tablet 100 mg PO DAILY Rx Instructions: Takes mid-afternoon amlodipine 2.5 mg tablet 2.5 mg PO QAM Referrals Referrals: PCP,NO [Physician] -
[2023-02-09] MEDS ORDERED: SODIUM CHLORIDE 0.9% 500 ML IV SCH (07:45)
--- NOTE | 2023-02-09 08:52 | XRay Report ---
XR chest 1V portable CLINICAL HISTORY: Frequent falls. COMPARISON STUDY: Chest radiograph and chest CT October 26, 2022. FINDINGS: Right shoulder arthroplasty is incidentally noted. Cardiomegaly is unchanged. There is no e vidence for pulmonary edema. No consolidation is present. There is no pneumothorax or pleural effusio n. Postoperative findings within the spine are partially imaged. No rib fractures are identified alth ough sensitivity is diminished given this technique. IMPRESSION: No acute cardiopulmonary findings. No change in appearance of the chest. ACT 112: Negative or not required by law. Electronically signed by: Kd Maguire M.D. 02/09/2023 8:50 AM
[2023-02-09] MEDS ORDERED: ACETAMINOPHEN 500 MG TAB PO STA (10:04)
[2023-02-09 10:46] LABS: Basophils # (auto) 0.03 K/uL (0-0.2); Basophils % (auto) 0.2 %; Eosinophils # (auto) 0.01 K/uL (0-0.50); Eosinophils % (auto) 0.1 %; Hematocrit (blood only) 41.5 % (37.0-47.0); Hemoglobin 13.3 g/dl (12.0-16.0); Immature Granulocytes % (auto) 0.6 %; Lymphocytes # (auto) 1.07 K/uL (1.2-3.4); Lymphocytes % (auto) 6.8 %; Mean Corpuscular Hemoglobin 28.2 pg (25.0-34.0); Mean Corpuscular Volume 87.9 fL (80.0-100.0); Mean Platelet Volume 10.7 fL (9.4-12.4); Monocytes # (auto) 1.73 K/uL (0.11-0.59); Neutrophils # (auto) 12.81 K/uL (1.40-6.50); Neutrophils % (auto) 81.3 %; Platelet Count 235 K/uL (130-400); RDW Coefficient of Variation 13.5 % (11.5-14.5); RDW Standard Deviation 43.6 fL (36.4-46.3); Red Blood Count 4.72 M/uL (4.20-5.40); White Blood Count 15.75 K/ul (4.8-10.8)
[2023-02-09 10:56] LABS: Albumin Globulin Ratio 1.4 (0.9-2); Albumin Level 4.2 gm/dl (3.4-5.0); BUN Creatinine Ratio 18.3 (10-20); Bilirubin,Total 0.7 mg/dl (0.2-1.0); Calcium 10.4 mg/dl (8.6-10.3); Creatinine Clr Calc Pharmacy 42.8 ml/min; Est GFR (African American) 37.6 ml/min; Est GFR (Non-African American) 32.5 ml/min; Potassium 4.5 mmol/L (3.5-5.1); Total Protein 7.2 gm/dl (6.0-8.3)
[2023-02-09 11:09] LABS: Partial Thromboplastin Ratio 0.9; Partial Thromboplastin Time 24.4 Seconds (21.0-31.0); Prothrombin Time 11.3 Seconds (9.0-12.0)
[2023-02-09 11:17] LABS: Troponin I High Sensitivity 8.4 pg/ml (0-14)
[2023-02-09 11:27] LABS: Appearance Urine Clear (Clear); Bacteria Urine Automated Negative (Negative); Bilirubin Urine Negative (Negative); Blood Urine Negative (Negative); Color Urine Dark Yellow; Epithelial Cell Urine Auto 20-30 /lpf (0-5); Glucose Urine UA Negative (Negative); Ketones Urine Negative (Negative); Leukocyte Esterase Urine Negative (Negative); Nitrite Urine Negative (Negative); Protein Urine 3+ (Negative); RBC Urine Automated 0-4 /hpf (0-4); Specific Gravity Urine 1.021 (1.000-1.030); Urobilinogen Urine Negative (Negative); pH Urine 6.5 (4.5-7.5)
--- NOTE | 2023-02-09 12:13 | History & Physical Report ---
Date of Service February 09, 2023 Assessment & Plan (1) Ambulatory dysfunction: Plan: Slow progressive worsening rather than new acute pathology however is at the point he is unable to manage with her at home and hoping to get into acute inpatient rehab. Multifactorial with morbid obesity, spinal stenosis, diabetic peripheral neuropathy CT head performed Will check B12, CK (history of statin myopathy) Given mild confusion will also complete infection workup although this appears to be better today than yesterday TSH (recently performed in October and WNL) PT/OT, consider placement for inpatient rehab (2) Leukocytosis: Plan: Suspect more from stress of fall. Blood cultures taken. Add CRP/ESR. Trend with AM labs No source to start antibiotics (3) Polyneuropathy: Plan: Continue duloxetine and Lyrica (4) Atrial fibrillation: Plan: Xarelto for anticoagulation Rate control with metoprolol (5) Bilateral leg weakness: (6) Sleep apnea: Plan: CPAP HS (7) Hypertension: Plan: Continue routine medications Plan VTE Prophylaxis - Xarelto Diet -heart healthy, T2DM Disposition - observation to med/surg Admission and Anticipated Discharge Date Admission Date: February 09, 2023 History of Present Illness Chief Complaint: Ambulatory dysfunction Primary Care Provider: Dirk Cooper DO Ni Tolliver is a 77 year old female who presents to the ER with frequent falls and generalized weakness. She is here with her who provides the majority of the history. They reports a long history of falls progressively getting worse over years. No chest pain, shortness of breath or dizziness prior to falling. Her legs just give out. They do not feel she is safe at home at this time after falling yesterday and today therefore requesting inpatient rehabilitation. No acute new presentation. Falls suspected to be caused by her peripheral neuropathy from diabetes and spinal stenosis. Her was concerned she was more confused yesterday with her staring into the distance. After falling EMS always have to be called to help lift her up as her is unable to. Today the confusion is actually better and she is back to her baseline Most recent change in medication changes was switching gabapentin to pregabalin approximately 2 months ago. Although I cannot confirm this on the external med rec. They both report this has been helpful for her neuropathic pain and she is able to take less ibuprofen and gabapentin while on this. She also stopped metformin 3 weeks ago and felt less nauseous and had abetter appetite after stopping this. Allergies Allergy/AdvReac Type Severity Reaction Status Date / Time Aminoglycosides Allergy Intermediate rash Verified 02/09/23 15:04 neomycin Allergy Intermediate RASH Verified 02/09/23 15:04 nickel Allergy Intermediate rash Verified 02/09/23 15:04 piroxicam Allergy Intermediate RASH Verified 02/09/23 15:04 polymyxin B Allergy Intermediate rash Verified 02/09/23 15:04 house dust Allergy Mild Sneezing Verified 02/09/23 15:04 oxycodone [From Roxicodone] AdvReac Mild Shakiness Verified 02/09/23 15:04 Aqkqzke-ZUT-QvX Reductase AdvReac Mild MUSCLE AND Verified 02/09/23 15:04 Inhibitor JOINT PAIN [Smejqji-Kzt-Bnq Reductase Inhibitor] Home Medications Medication Instructions Recorded Confirmed Type albuterol sulfate 90 mcg/actuation 1 - 2 puffs inhalation Q4H PRN 06/15/19 02/09/23 Rx aerosol inhaler shortness of breath or wheezing #8.5 grams fluticasone propionate 50 1 spray intranasal DAILY PRN 06/05/20 02/09/23 History mcg/actuation nasal allergy symptoms spray,suspension (Flonase Allergy Relief) acetaminophen 500 mg tablet 1,000 mg PO Q8 PRN fever or pain 09/25/20 02/09/23 Rx #30 tabs thiamine HCl (vitamin B1) 50 mg 50 mg PO QAM #30 tabs 09/25/20 02/09/23 Rx tablet (Vitamin B-1) cinacalcet 30 mg tablet (Sensipar) 30 mg PO DAILY #90 tabs 10/28/20 02/09/23 Rx ipratropium 20 mcg-albuterol 100 1 puff inhalation Q4H PRN 10/28/20 02/09/23 Rx mcg/actuation mist for inhalation shortness of breath or wheezing #4 (Combivent Respimat) grams amlodipine 5 mg tablet 5 mg PO PM #90 tabs 05/13/21 02/09/23 Rx ibuprofen 600 mg tablet 600 mg PO TID PRN Pain 05/28/21 02/09/23 History furosemide 20 mg tablet 20 mg PO DAILY 09/15/21 02/09/23 History fluticasone propionate 110 1 puff inhalation BID PRN Wheezing 02/26/22 02/09/23 History mcg/actuation HFA aerosol inhaler (Flovent HFA) fenofibrate nanocrystallized 145 145 mg PO DAILY #90 tabs 05/26/22 02/09/23 Rx mg tablet hydralazine 25 mg tablet 25 mg PO TID #270 tabs 07/07/22 02/09/23 Rx rabeprazole 20 mg tablet,delayed 20 mg PO DAILY #30 tabs 07/20/22 02/09/23 Rx release (AcipHex) rivaroxaban 15 mg tablet 15 mg PO DAILY #30 tabs 07/20/22 02/09/23 Rx duloxetine 60 mg capsule,delayed 60 mg PO HS #90 caps 08/05/22 02/09/23 Rx release alpha lipoic acid 100 mg capsule 300 mg PO BID 08/17/22 02/09/23 History pen needle, diabetic 32 gauge x #100 ea 09/20/22 02/09/23 Rx 5/32" (BD Ultra-Fine Shanel Pen Needle) amlodipine 2.5 mg tablet 2.5 mg PO QAM 10/26/22 02/09/23 History ondansetron 4 mg disintegrating 4 mg PO Q8H PRN nausea and 12/11/22 02/09/23 Rx tablet vomiting #30 tabs pregabalin 75 mg capsule (Lyrica) 75 mg PO .COMPLEX #120 caps 12/24/22 02/09/23 Rx levothyroxine 150 mcg tablet 150 mcg PO DAILYBB #90 tabs 01/04/23 02/09/23 Rx insulin glargine 100 unit/mL (3 6 unit (0.06 mL) subcut HS 30 days 02/05/23 02/09/23 Rx mL) subcutaneous pen (Lantus #3 mL Solostar U-100 Insulin) chlorzoxazone 500 mg tablet 500 mg PO TID 02/09/23 02/09/23 History hydroxyzine HCl 25 mg tablet 50 mg PO HS PRN itching 02/09/23 02/09/23 History losartan 100 mg tablet 100 mg PO DAILY 02/09/23 02/09/23 History metoprolol tartrate 25 mg tablet 25 mg PO BID 02/09/23 02/09/23 History trazodone 50 mg tablet 50 mg PO HS 02/09/23 02/09/23 History triamcinolone acetonide 0.1 % 1 applic topical BID PRN .flare ups 02/09/23 02/09/23 History topical ointment Past Med/Surg History Medical History (Updated 02/10/23 @ 06:38 by Shaun Lynne MD) Acquired claw toe of left foot Acquired claw toe of right foot Acquired hallux valgus of right foot Allergic rhinitis Atrial fibrillation Atrial fibrillation with slow ventricular response Callus Chest pain Chronic back pain CKD (chronic kidney disease), stage III Controlled type 2 diabetes mellitus with neurologic complication, with long-term current use of insulin Degenerative disc disease Diabetic peripheral neuropathy Dysesthesia Dysphagia Fall Familial tremor GERD (gastroesophageal reflux disease) GERD (gastroesophageal reflux disease) Graves disease WITH RADIOACTIVE IODINE Hallux valgus (acquired), left foot Hypercalcemia Hyperlipidemia Hyperparathyroidism Hypertension Hypothyroidism Insomnia Loss of protective sensation of skin of deformed foot Microalbuminuria Morbid obesity Osteoarthritis Primary hyperparathyroidism Seborrheic keratosis Septicemia TREATED AT [facility] (BEGINNING OF 2017) AFFECTED RIGHT LEG. Sinus bradycardia Sleep apnea CPAP Toxic encephalopathy Type 2 diabetes mellitus with diabetic peripheral angiopathy without gangrene Surgical History Fusion of spine X3 L1-L5 History of adenoidectomy History of appendectomy LAP History of bilateral tubal ligation History of cataract surgery BILATERAL History of cholecystectomy LAP History of colonoscopy History of esophagogastroduodenoscopy (EGD) History of herniorrhaphy UMBILICAL REPAIR x 2 History of tonsillectomy History of total hip arthroplasty BILATERAL History of total knee replacement BILATERAL History of total shoulder replacement RIGHT Nausea and vomiting after administration of anesthetic agent Family History Father Family history of diabetes mellitus Arthritis Hypertension Stroke Lung disease Obesity Diabetes Mother Arthritis Diabetes Hypertension Stroke Obesity Depression Brother Depression Suicide Aunt Uterine cancer Grandfather (Maternal) Colorectal cancer Aunt Colorectal cancer Denies family history of Prostate cancer Myocardial infarction Breast cancer Social History Smoking Status: Never smoker Second Hand Exposure: No; Do You Dip or Chew Tobacco: No; Tobacco Cessation Education Requested by Patient: No Hx Alcohol Use: No Hx Substance Use: No Preferred Language: Vietnamese Communication Ability: Effective Visual Impairment: Limited Hearing Ability: Normal Linux Security Administrator Required: No Beliefs That Will Affect Care: None marital status: Current Living Situation: Spouse current occupational status: retired Other Information That Helps Us Care for You: No Feels Safe at Home: Yes Safety Concerns: Feels Safe At This Time Childhood Exposure to Second-Hand Smoke: Yes Diet: diabetic and regular Dental Care, Regularly: Yes Physical Activity Frequency: 3-4 Times per Week Seatbelt Use: always Sunscreen Use: Yes Assistive Devices: Glasses and Walker Review of Systems Review of Systems: All systems reviewed & are unremarkable except as noted in HPI & below Physical Exam Constitutional: well developed and + morbidly obese; + not well nourished and no acute distress Eyes: PERRL, conjunctivae normal, anicteric sclerae ENMT: external ear and nose normal, oropharynx normal Neck: + short neck and + thick neck Respiratory: normal respiratory effort, lungs clear to auscultation Cardiovascular: Rate/Rhythm: regular rate and + irregularly irregular Heart Sounds: no murmur Extremities: normal capillary refill and + pedal edema (1+ ankles b/l equal); no calf tenderness Gastrointestinal (Abdomen): normal bowel sounds, soft, nontender, no hepatosplenomegaly Neurologic: moves all extremities and awake; no focal motor deficits and not confused Motor/Sensory: + sensory deficit (numbness in bilateral feet); no tremor and no pronator drift Cranial Nerves: EOM intact bilaterally, normal facial strength, tongue midline, able to rotate head bilaterally, able to elevate shoulders bilaterally, no nystagmus and symmetric palate elevation Coordination: normal uzbwdw-ur-tywz test Psychiatric: A+Ox3, euthymic affect Genitourinary: no CVA tenderness Results & Data Results & Data Vital Signs (Past 12 Hours) Vital Signs Temp Pulse Resp BP Pulse Ox O2 Del Method 02/09/23 12:03 97 H 02/09/23 07:29 88 02/09/23 07:33 86 17 93 Room Air 02/09/23 07:28 36.9 C 83 15 149/111 H 94 Room Air Laboratory Results Abnormal lab results 02/09/23 02/09/23 02/09/23 Range/Units 10:12 10:12 10:49 WBC 15.75 H (4.8-10.8) K/ul Neut # (Auto) 12.81 H (1.40-6.50) K/uL Lymph # (Auto) 1.07 L (1.2-3.4) K/uL [place] # (Auto) 1.73 H (0.11-0.59) K/uL BUN 28 H (6-23) mg/dl Creatinine 1.53 H (0.6-1.2) mg/dl Glucose 110 H (70-99(Fasting)) mg/dl Calcium 10.4 H (8.6-10.3) mg/dl Urine Protein 3+ H (Negative) U Epithel Cells (Auto) 20-30 H (0-5) /lpf Diagnostic Findings XR chest 1V portable CLINICAL HISTORY: Frequent falls. COMPARISON STUDY: Chest radiograph and chest CT October 26, 2022. FINDINGS: Right shoulder arthroplasty is incidentally noted. Cardiomegaly is unchanged. There is no evidence for pulmonary edema. No consolidation is present. There is no pneumothorax or pleural effusion. Postoperative findings within the spine are partially imaged. No rib fractures are identified although sensitivity is diminished given this technique. IMPRESSION: No acute cardiopulmonary findings. No change in appearance of the chest. Medications Administered ER Medications Given: NSS 500ml bolus Acetaminophen 1000mg PO ECG Rate (beats per minute): 81 Rhythm: atrial fibrillation Findings: + RBBB (incomplete) and + left axis deviation Comparison ECG Date: from (October 26, 2022) Change: no significant change Code Status & VTE Plan Code Status Full VTE Prophylaxis Plan VTE Prophylaxis will be ordered: Yes PG Care Time/CCT Total # of Minutes Spent Total Time Spent with Patient: Total time spent is greater than 50% in coordination of care (as documented) at patient's floor/unit and/or counseling patient: Coding Level of Care Code 77826 INT INP/OBS CARE 2/55MIN Diagnoses Ambulatory dysfunction R26.2 Leukocytosis D72.829 Polyneuropathy G62.9 Atrial fibrillation I48.91 Bilateral leg weakness R29.898 Sleep apnea G47.30 Hypertension I10
[2023-02-09 13:11] LABS: Base Excess VBG 2.5 mEq/L; HCO3 VBG 28 mmol/L; Oxygen Saturation VBG < 60.0 %; PCO2 VBG 48 mmHg (38-50); PO2 VBG 30 mmHg; pH VBG 7.38 (7.36-7.41)
[2023-02-09 13:34] LABS: C Reactive Protein 17.3 mg/dl (0-0.5)
--- NOTE | 2023-02-09 14:00 | CT Scan Report ---
CT OF THE HEAD WITHOUT CONTRAST CLINICAL HISTORY: recurrent falls ?ICH COMPARISON STUDY: Head CT March 10, 2022 and MRI of the brain June 25, 2020. CT DOSE: 625.80 mGy.cm TECHNIQUE: Helical axial images of the head were obtained without IV contrast. Automated exposure con trol was utilized for the study. A dose lowering technique was utilized adhering to the principles o f ALARA. FINDINGS: No acute intracranial hemorrhage, midline shift or mass effect is present. White matter hyp odensities are unchanged and favor small vessel disease. The ventricular system is unremarkable. The basal cisterns are patent. No extra-axial collections are present. There are no findings to suggest a cute dural sinus thrombosis or acute territorial infarct. No significant calvarial abnormalities are present. Visualized portions of the sinuses and mastoid air cells are clear. IMPRESSION: 1. No acute intracranial findings. No change in appearance of the brain. 2. No acute calvarial fracture. ACT 112: Negative or not required by law. Electronically signed by: Kd Maguire M.D. 02/09/2023 1:58 PM
[2023-02-09] MEDS ORDERED: GLUCOSE 40% GEL 15 GM TUBE PO PRN (16:53)
[2023-02-09] MEDS ORDERED: CARBOHYDRATES FOR HYPOGLYCEMIA PO PRN (16:53)
[2023-02-09] MEDS ORDERED: DEXTROSE 50% 50 ML SYRINGE IV PRN (16:53)
[2023-02-09] MEDS ORDERED: GLUCAGON FOR INJ 1 MG VIAL SQ PRN (16:53)
[2023-02-09] MEDS ORDERED: GLUCOSE 10 TAB/TUBE PO PRN (16:53)
[2023-02-09] MEDS: CYANOCOBALAMIN 1000 MCG/ML VIAL IM SCH (18:04)
[2023-02-09] MEDS: INSULIN ASPART PER UNIT CHARGE SC SCH ×2 (18:13→21:14)
[2023-02-09] MEDS ORDERED: ALBUTEROL HFA 8 GM INHALER INH PRN (19:50)
[2023-02-09] MEDS: amLODIPine BESYLATE 5 MG TAB PO SCH (19:55)
[2023-02-09] MEDS: CHLORZOXAZONE 500 MG TAB PO SCH (19:56)
[2023-02-09] MEDS: DULoxetine HCL 60 MG CAP PO SCH (19:56)
[2023-02-09] MEDS: hydrALAZINE HCL 25 MG TAB PO SCH (19:56)
[2023-02-09] MEDS: METOPROLOL TARTRATE 25 MG TAB PO SCH (19:57)
[2023-02-09] MEDS: traZODone HCL 50 MG TAB PO SCH (19:58)
[2023-02-09] MEDS: PREGABALIN 75 MG CAP PO SCH (20:01)
[2023-02-09] MEDS: ACETAMINOPHEN 325 MG TAB PO PRN (20:02)
[2023-02-10] MEDS: LEVOTHYROXINE SODIUM 150 MCG TABLET PO SCH (06:14)
[2023-02-10] MEDS: ACETAMINOPHEN 325 MG TAB PO PRN ×3 (06:47→22:25)
[2023-02-10] MEDS: IBUPROFEN 600 MG TAB PO PRN ×2 (07:32→18:44)
[2023-02-10 08:50] LABS: Basophils # (auto) 0.05 K/uL (0-0.2); Basophils % (auto) 0.3 %; Eosinophils # (auto) 0.01 K/uL (0-0.50); Eosinophils % (auto) 0.1 %; Hematocrit (blood only) 38.4 % (37.0-47.0); Hemoglobin 12.6 g/dl (12.0-16.0); Immature Granulocytes # (auto) 0.15 K/uL (0.01-0.20); Lymphocytes # (auto) 0.78 K/uL (1.2-3.4); Mean Corpuscular Hemoglobin 28.4 pg (25.0-34.0); Mean Corpuscular Hgb Conc 32.8 g/dL (32.0-36.0); Mean Corpuscular Volume 86.7 fL (80.0-100.0); Mean Platelet Volume 10.9 fL (9.4-12.4); Monocytes # (auto) 1.54 K/uL (0.11-0.59); Monocytes % (auto) 9.8 %; Neutrophils # (auto) 13.12 K/uL (1.40-6.50); Neutrophils % (auto) 83.8 %; Platelet Count 241 K/uL (130-400); RDW Coefficient of Variation 13.5 % (11.5-14.5); Red Blood Count 4.43 M/uL (4.20-5.40); White Blood Count 15.65 K/ul (4.8-10.8)
[2023-02-10 09:17] LABS: BUN Creatinine Ratio 18.1 (10-20); Calcium 10.4 mg/dl (8.6-10.3); Creatinine Clr Calc Pharmacy 44.8 ml/min; Est GFR (African American) 40.5 ml/min; Est GFR (Non-African American) 34.9 ml/min
[2023-02-10] MEDS: THIAMINE HCL 50 MG TABLET PO SCH (09:33)
[2023-02-10] MEDS: PANTOprazole 40 MG TAB PO SCH (09:33)
[2023-02-10] MEDS: RIVAROXABAN 15 MG TAB PO SCH (09:33)
[2023-02-10] MEDS: PREGABALIN 75 MG CAP PO SCH ×3 (09:33→22:29)
[2023-02-10] MEDS: FUROSEMIDE 20 MG TAB PO SCH (09:34)
[2023-02-10] MEDS: METOPROLOL TARTRATE 25 MG TAB PO SCH ×2 (09:34→22:26)
[2023-02-10] MEDS: hydrALAZINE HCL 25 MG TAB PO SCH ×3 (09:34→22:27)
[2023-02-10] MEDS: amLODIPine BESYLATE 5 MG TAB PO SCH ×2 (09:34→22:26)
[2023-02-10] MEDS: CHLORZOXAZONE 500 MG TAB PO SCH ×3 (09:35→22:27)
[2023-02-10] MEDS: CYANOCOBALAMIN 1000 MCG/ML VIAL IM SCH (09:40)
[2023-02-10] MEDS: INSULIN ASPART PER UNIT CHARGE SC SCH ×4 (09:43→22:27)
[2023-02-10 10:32] LABS: Estimated Average Glucose 131 mg/dl; Hemoglobin A1C 6.2 % (4.5-5.6)
[2023-02-10] MEDS: FENOFIBRATE NANOCRYSTALLIZED 145 MG TABLET PO SCH (12:59)
[2023-02-10] MEDS: CINACALCET HCL 30 MG TAB PO SCH (12:59)
[2023-02-10] MEDS: LOSARTAN POTASSIUM 50 MG TAB PO SCH (12:59)
[2023-02-10] MEDS: traZODone HCL 50 MG TAB PO SCH (22:26)
[2023-02-10] MEDS: DULoxetine HCL 60 MG CAP PO SCH (22:26)
--- NOTE | 2023-02-10 22:38 | Hospitalist Progress Note ---
Date of Service February 10, 2023 Assessment & Plan (1) Ambulatory dysfunction: Plan: Slow progressive worsening rather than new acute pathology however is at the point he is unable to manage with her at home and hoping to get into acute inpatient rehab. Multifactorial with morbid obesity, spinal stenosis, diabetic peripheral neuropathy CT head performed Will check B12, CK (history of statin myopathy) Given mild confusion will also complete infection workup although this appears to be better today than yesterday Confusion appears resolved on 02/10 TSH (recently performed in October and WNL) PT/OT, consider placement for inpatient rehab awaiting placement, will discuss with renal case manager on 02/11 (2) Leukocytosis: Plan: Suspect more from stress of fall. Blood cultures taken. Add CRP/ESR. Trend with AM labs No source to start antibiotics (3) Polyneuropathy: Plan: Continue duloxetine and Lyrica (4) Atrial fibrillation: Plan: Chronic atrial fibrillation Xarelto for anticoagulation Rate control with metoprolol (5) Bilateral leg weakness: (6) Sleep apnea: Plan: CPAP HS (7) Hypertension: Plan: Continue routine medications Plan VTE Prophylaxis - Xarelto Diet -heart healthy, T2DM Disposition - observation to med/surg Admission and Anticipated Discharge Date Admission Date: February 09, 2023 Subjective Patient reports no new symptoms. Review of Systems Review of Systems: All systems reviewed & are unremarkable except as noted in HPI & below Physical Exam Physical Exam: Constitutional: well developed no acute distress Eyes: PERRL, conjunctivae normal, anicteric sclerae ENMT: external ear and nose normal, oropharynx normal Neck: + short neck and + thick neck Respiratory: normal respiratory effort, lungs clear to auscultation Cardiovascular: Rate/Rhythm: regular rate and + irregularly irregular Heart Sounds: no murmur Extremities: normal capillary refill and + pedal edema (1+ ankles b/l equal); no calf tenderness Gastrointestinal (Abdomen): ormal bowel sounds, soft, nontender, no hepatosplenomegaly Neurologic: moves all extremities and awake; no focal motor deficits and not confused Motor/Sensory: + sensory deficit (numbness in bilateral feet); no tremor and no pronator drift Cranial Nerves: EOM intact bilaterally, normal facial strength, tongue midline, able to rotate head bilaterally, able to eleva te shoulders bilaterally, no nystagmus and symmetric palate elevation Coordination: normal cqgutt-eg-aovh test Psychiatric: A+Ox3, euthymic affect Genitourinary: no CVA tenderness Results & Data Results & Data Vital Signs (Past 12 Hours) Vital Signs Temp Pulse Resp BP Pulse Ox O2 Del Method 02/10/23 20:37 37.0 C 96 H 22 145/97 H 91 Room Air 02/10/23 16:11 36.5 C 87 20 155/90 H 93 Room Air 02/10/23 15:03 93 02/10/23 12:58 69 132/79 PG Care Time/CCT Total # of Minutes Spent Total Time Spent with Patient: Total time spent is greater than 50% in coordination of care (as documented) at patient's floor/unit and/or counseling patient: Coding Level of Care Code 17748 SUB INP/OBS CARE 2/35MIN Diagnoses Ambulatory dysfunction R26.2 Leukocytosis D72.829 Polyneuropathy G62.9 Atrial fibrillation I48.91 Bilateral leg weakness R29.898 Sleep apnea G47.30 Hypertension I10
--- NOTE | 2023-02-11 05:53 | Electrocardiogram Report ---
Test Reason : Blood Pressure : / mmHG Vent. Rate : 081 BPM Atrial Rate : 000 BPM P-R Int : 000 ms QRS Dur : 116 ms QT Int : 398 ms P-R-T Axes : 000 -61 049 degrees QTc Int : 462 ms Atrial fibrillation Left axis deviation Incomplete right bundle branch block Anterior infarct , age undetermined Abnormal ECG When compared with ECG of 26-OCT-2022 07:05, Anterior infarct is now Present Inferior infarct is no longer Present Confirmed by Andrez Ramirez ([id number]) on 02/11/2023 5:53:27 AM Referred By: REFERRED SELF Confirmed By:Andrez Ramirez
[2023-02-11] MEDS: LEVOTHYROXINE SODIUM 150 MCG TABLET PO SCH (06:25)
[2023-02-11] MEDS: IBUPROFEN 600 MG TAB PO PRN (07:58)
[2023-02-11] MEDS: hydrALAZINE HCL 25 MG TAB PO SCH ×3 (09:01→20:17)
[2023-02-11] MEDS: METOPROLOL TARTRATE 25 MG TAB PO SCH ×2 (09:02→20:17)
[2023-02-11] MEDS: amLODIPine BESYLATE 5 MG TAB PO SCH ×2 (09:02→20:16)
[2023-02-11] MEDS: CHLORZOXAZONE 500 MG TAB PO SCH ×3 (09:02→20:16)
[2023-02-11] MEDS: PANTOprazole 40 MG TAB PO SCH (09:03)
[2023-02-11] MEDS: RIVAROXABAN 15 MG TAB PO SCH (09:03)
[2023-02-11] MEDS: THIAMINE HCL 50 MG TABLET PO SCH (09:03)
[2023-02-11] MEDS: PREGABALIN 75 MG CAP PO SCH ×3 (09:06→20:23)
[2023-02-11] MEDS: INSULIN ASPART PER UNIT CHARGE SC SCH ×4 (09:08→20:53)
--- NOTE | 2023-02-11 09:59 | Hospitalist Progress Note ---
Date of Service February 11, 2023 Assessment & Plan (1) Ambulatory dysfunction: Plan: Slow progressive worsening rather than new acute pathology however is at the point he is unable to manage with her at home and hoping to get into acute inpatient rehab. Multifactorial with morbid obesity, spinal stenosis, diabetic peripheral neuropathy CT head negative Will check B12, CK (history of statin myopathy) Given mild confusion will also complete infection workup although this appears to be better today than yesterday Confusion appears resolved on 02/10- TSH (recently performed in October and ) PT/OT, consider placement for inpatient rehab (2) Leukocytosis: Plan: Suspect more from stress of fall. Blood cultures taken. Add CRP/ESR. Right ear examined there is no overt signs of otitis there is some irritation to the ear canal and the patient also has no signs or symptoms of shingles although this pain is unilateral and fairly intense for lack of clinical findings No source to start antibiotics (3) Polyneuropathy: Plan: Continue duloxetine and Lyrica (4) Atrial fibrillation: Plan: Chronic atrial fibrillation Xarelto for anticoagulation Rate control with metoprolol (5) Bilateral leg weakness: Plan: [place] to be secondary to spinal stenosis (6) Sleep apnea: Plan: CPAP HS Plan VTE Prophylaxis - Xarelto Disposition - observation to med/surg Admission and Anticipated Discharge Date Admission Date: February 09, 2023 Subjective Patient still does not feel well she has pain about her right ear. Right ear on examination is some mild erythema to the external canal but no otitis media visualized there is no tenderness to the mastoid sinus there is no tenderness to moving the pinnae there is no rash about her posterior head where her pain and headache reside Physical Exam Physical Exam: Please see subjective portion Otherwise awake alert appropriate does have weakness to her lower extremities cardiopulmonary exams unremarkable Results & Data Results & Data Vital Signs (Past 12 Hours) Vital Signs Temp Pulse Resp BP Pulse Ox O2 Del Method O2 Flow Rate 02/11/23 08:41 99.3 F 113 H 16 125/75 91 Nasal Cannula 2.5 02/11/23 07:14 100.2 F H 103 H 20 165/82 H 92 CPAP 02/10/23 23:00 94 CPAP 2 Laboratory Results Reviewed chemistry 7 vubae-lz-scyr glucose liver function test and ammonia PG Care Time/CCT Total # of Minutes Spent Total Time Spent with Patient: Total time spent is greater than 50% in coordination of care (as documented) at patient's floor/unit and/or counseling patient: Coding Level of Care Code 52416 SUB INP/OBS CARE 235MIN Diagnoses Ambulatory dysfunction R26.2 Leukocytosis D72.829 Polyneuropathy G62.9 Atrial fibrillation I48.91 Bilateral leg weakness R29.898 Sleep apnea G47.30
[2023-02-11] MEDS: CYANOCOBALAMIN 1000 MCG/ML VIAL IM SCH (10:39)
[2023-02-11] MEDS: FUROSEMIDE 20 MG TAB PO SCH (10:39)
[2023-02-11 11:02] LABS: Albumin Globulin Ratio 0.9 (0.9-2); Albumin Level 3.4 gm/dl (3.4-5.0); BUN Creatinine Ratio 21.4 (10-20); Bilirubin,Total 0.7 mg/dl (0.2-1.0); Calcium 10.2 mg/dl (8.6-10.3); Creatinine Clr Calc Pharmacy 44.5 ml/min; Est GFR (African American) 40.2 ml/min; Est GFR (Non-African American) 34.6 ml/min; Globulin 3.6 gm/dl (2.5-4.0); Potassium 3.8 mmol/L (3.5-5.1)
[2023-02-11] MEDS: CINACALCET HCL 30 MG TAB PO SCH (12:41)
[2023-02-11] MEDS: FENOFIBRATE NANOCRYSTALLIZED 145 MG TABLET PO SCH (12:41)
[2023-02-11] MEDS: LOSARTAN POTASSIUM 50 MG TAB PO SCH (12:41)
[2023-02-11] MEDS: traMADol HCL 50 MG TABLET PO PRN (16:08)
[2023-02-11] MEDS: traZODone HCL 50 MG TAB PO SCH (20:16)
[2023-02-11] MEDS: DULoxetine HCL 60 MG CAP PO SCH (20:17)
[2023-02-11] MEDS: CIPRO 0.2%/HYDROCORTISONE 1% OTIC SUSP 10 ML BTL OTR SCH (20:18)
[2023-02-12] MEDS: LEVOTHYROXINE SODIUM 150 MCG TABLET PO SCH (05:31)
[2023-02-12] MEDS: INSULIN ASPART PER UNIT CHARGE SC SCH ×4 (09:02→21:00)
[2023-02-12] MEDS: amLODIPine BESYLATE 5 MG TAB PO SCH ×2 (09:03→20:22)
[2023-02-12] MEDS: CHLORZOXAZONE 500 MG TAB PO SCH (09:04)
[2023-02-12] MEDS: FUROSEMIDE 20 MG TAB PO SCH (09:04)
[2023-02-12] MEDS: CIPRO 0.2%/HYDROCORTISONE 1% OTIC SUSP 10 ML BTL OTR SCH ×2 (09:05→20:22)
[2023-02-12] MEDS: hydrALAZINE HCL 25 MG TAB PO SCH ×3 (09:06→20:22)
[2023-02-12] MEDS: METOPROLOL TARTRATE 25 MG TAB PO SCH ×2 (09:07→20:21)
[2023-02-12] MEDS: RIVAROXABAN 15 MG TAB PO SCH (09:07)
[2023-02-12] MEDS: PANTOprazole 40 MG TAB PO SCH (09:07)
[2023-02-12] MEDS: THIAMINE HCL 50 MG TABLET PO SCH (09:08)
[2023-02-12] MEDS: CYANOCOBALAMIN 1000 MCG/ML VIAL IM SCH (09:08)
[2023-02-12] MEDS: PREGABALIN 75 MG CAP PO SCH ×2 (09:17→09:21)
[2023-02-12] MEDS ORDERED: cefTRIAXone SODIUM 2,000 MG in DEXTROSE 5% 50 ML IV SCH (10:00)
--- NOTE | 2023-02-12 10:42 | CT Scan Report ---
CT head/brain wo con CLINICAL HISTORY: 77 years-old Female with confusion. Acutely altered mental status TECHNIQUE: Multiple axial CT images of the head were obtained without contrast. A dose lowering tech nique was utilized adhering to the principles of ALARA. CT DOSE: 703.85 mGy.cm COMPARISON: Head CT 02/09/2023 FINDINGS: No acute intracranial hemorrhage, midline shift, intracranial mass, acute territorial ischemia or abn ormal extra-axial collection. Involutional changes with chronic microvascular ischemic disease. Cereb rovascular calcifications. Mild ventriculomegaly is likely on ex vacuo basis. The calvarium is intact. Prior bilateral lens repair. The paranasal sinuses, mastoid air cells, and m iddle ear cavities are clear. IMPRESSION: No acute intracranial abnormality. ACT 112: Negative or not required by law. The above report was generated using voice recognition software. It may contain grammatical, syntax o r spelling errors. Electronically signed by: Sujit Palomo M.D. 02/12/2023 10:41 AM
[2023-02-12] MEDS ORDERED: VANCOMYCIN CONSULT ACTIVE PRN (13:26)
[2023-02-12 13:32] LABS: Allen Test POS (Pos); HCO3 ABG 27 mmol/L (19-24); Oxygen Saturation ABG 97.2 % (90-95); PCO2 ABG 40 mmHg (35-46); PO2 ABG 73 mmHg (80-95); pH ABG 7.43 (7.35-7.45)
[2023-02-12] MEDS ORDERED: VANCOMYCIN HCL 2,500 MG in SODIUM CHLORIDE 0.9% 500 ML IV ONE (14:00)
[2023-02-12] MEDS: FENOFIBRATE NANOCRYSTALLIZED 145 MG TABLET PO SCH (14:21)
[2023-02-12] MEDS: CINACALCET HCL 30 MG TAB PO SCH (14:21)
[2023-02-12] MEDS: LOSARTAN POTASSIUM 50 MG TAB PO SCH (14:22)
--- NOTE | 2023-02-12 14:53 | Pharmacy Report ---
Pharmacy PK ABX Note - Date of Service February 12, 2023 - Assessment and Plan Assessment 77 year old F receiving Vancomycin and Rocephin for treatment of soft skin and tissue infection. Pertinent microbiologic data includes: N/A. Day # 07/18 of antimicrobial therapy. Plan Vancomycin * Loading dose: 2500 mg IV x 1 * Due to patient's age, weight, and body habitus, will dose vancomycin based upon levels at the beginning. Pharmacokinetic estimates suggest that [id number] regimens would be effective. Therefore will obtain random tomorrow morning which will be < 24 hours. * Random level ordered for: 02/13/23 Pharmacy will continue to follow and will adjust dose/frequency as necessary. Thank you. Pharmacy has transitioned to AUC monitoring for vancomycin. AUC/MAJOR is the preferred PK/PD target and is associated with decreased risk of nephrotoxicity compared to traditional trough targets.
--- NOTE | 2023-02-12 15:02 | Hospitalist Progress Note ---
Date of Service February 12, 2023 Assessment & Plan (1) Encephalopathy: Plan: Patient with worsening confusion and encephalopathy which may be toxic encephalopathy as she is on muscle relaxants which also may be metabolic encephalopathy from possible panniculitis had previous umbilical hernia repair site. The area does have some drainage a line of demarcation is marked vancomycin started as well as ceftriaxone wound culture will be obtained With regard to toxic encephalopathy medications are held CT scan was obtained and was unremarkable for any acute changes in her head Leukocytosis concern canal be possible panniculitis Given her morbid obesity and sleep apnea and ABG was obtained to rule out respiratory acidosis and hypercarbia these were not found (2) Atrial fibrillation: Plan: Chronic atrial fibrillation Xarelto for anticoagulation Rate control with metoprolol (3) Ambulatory dysfunction: Plan: Slow progressive worsening rather than new acute pathology however is at the point he is unable to manage with her at home and hoping to get into acute inpatient rehab. Multifactorial with morbid obesity, spinal stenosis, diabetic peripheral neuropathy CT head negative Will check B12, CK (history of statin myopathy) Given mild confusion will also complete infection workup although this appears to be better today than yesterday TSH (recently performed in October and ) Spinal stenosis with fall no pain at this time PT/OT, consider placement for inpatient rehab (4) Polyneuropathy: Plan: Patient not complaining of any pain we will hold medications at this time that could be clouding her mental sensorium (5) Sleep apnea: Plan: CPAP HS Plan VTE Prophylaxis - Xarelto Patient made full admission due to metabolic encephalopathy Admission and Anticipated Discharge Date Admission Date: February 11, 2023 Results & Data Results & Data Vital Signs (Past 12 Hours) Vital Signs Temp Pulse Resp BP BP Pulse Ox O2 Del Method 02/12/23 14:31 99.0 F 96 H 18 139/91 95 Nasal Cannula 02/12/23 08:27 CPAP 02/12/23 07:06 97.7 F 103 H 18 162/96 H 94 CPAP O2 Flow Rate 02/12/23 14:31 2 02/12/23 08:27 2 02/12/23 07:06 3 PG Care Time/CCT Total # of Minutes Spent Total Time Spent with Patient: Total time spent is greater than 50% in coordination of care (as documented) at patient's floor/unit and/or counseling patient: Coding Level of Care Code 46452 SUB INP/OBS CARE 50MIN Diagnoses Encephalopathy G93.40 Atrial fibrillation I48.91 Ambulatory dysfunction R26.2 Polyneuropathy G62.9 Sleep apnea G47.30
[2023-02-12 15:15] LABS: Hematocrit (blood only) 37.4 % (37.0-47.0); Hemoglobin 12.1 g/dl (12.0-16.0); Mean Corpuscular Hemoglobin 28.1 pg (25.0-34.0); Mean Corpuscular Hgb Conc 32.4 g/dL (32.0-36.0); Mean Platelet Volume 10.9 fL (9.4-12.4); Platelet Count 288 K/uL (130-400); RDW Coefficient of Variation 13.5 % (11.5-14.5); RDW Standard Deviation 42.9 fL (36.4-46.3); White Blood Count 15.56 K/ul (4.8-10.8)
[2023-02-12 15:27] LABS: Calcium 10.3 mg/dl (8.6-10.3); Creatinine Clr Calc Pharmacy 42.2 ml/min; Est GFR (African American) 37.6 ml/min; Est GFR (Non-African American) 32.5 ml/min; Potassium 3.9 mmol/L (3.5-5.1)
--- NOTE | 2023-02-12 17:09 | Ultrasound Report ---
US softtissue abdwall/lwr back CLINICAL HISTORY: abdominal wall near umbilicus COMPARISON STUDY: None. FINDINGS: Real-time sonographic imaging of the periumbilical location was performed with representati ve images submitted. At the patient's area of interest there is a small tract of complex fluid within the infraumbilical subcutaneous soft tissues which appears to connect to the skin surface. There is a heterogeneous shadowing area within the abdominal wall which favors mesh repair of a prior hernia. This small fluid tract abuts the suspected mesh. No evidence for recurrent hernia or masses. IMPRESSION: At the patient's area of interest there is a small tract of complex fluid within the inf raumbilical subcutaneous soft tissues which appears to connect to the skin surface. This small tract of fluid also appears to connect to what appears to be an abdominal wall mesh from prior hernia repa ir. ACT 112: Negative or not required by law. Electronically signed by: Librado Mena M.D. 02/12/2023 5:08 PM
[2023-02-12] MEDS: DULoxetine HCL 60 MG CAP PO SCH (20:21)
[2023-02-13] MEDS: LEVOTHYROXINE SODIUM 150 MCG TABLET PO SCH (05:30)
[2023-02-13] MEDS: RIVAROXABAN 15 MG TAB PO SCH (08:42)
[2023-02-13] MEDS: amLODIPine BESYLATE 5 MG TAB PO SCH ×2 (08:42→20:14)
[2023-02-13] MEDS: hydrALAZINE HCL 25 MG TAB PO SCH ×3 (08:43→20:14)
[2023-02-13] MEDS: THIAMINE HCL 50 MG TABLET PO SCH (08:44)
[2023-02-13] MEDS: PANTOprazole 40 MG TAB PO SCH (08:44)
[2023-02-13] MEDS: FUROSEMIDE 20 MG TAB PO SCH (08:44)
[2023-02-13] MEDS ORDERED: PIPERACILLIN/TAZOBACTAM 4.5 GM (over 30 mins) IV ONE (08:45)
[2023-02-13] MEDS: CIPRO 0.2%/HYDROCORTISONE 1% OTIC SUSP 10 ML BTL OTR SCH ×2 (08:46→20:15)
[2023-02-13] MEDS: METOPROLOL TARTRATE 25 MG TAB PO SCH ×2 (08:50→20:14)
[2023-02-13 08:53] LABS: Hematocrit (blood only) 38.2 % (37.0-47.0); Hemoglobin 12.7 g/dl (12.0-16.0); Mean Corpuscular Hemoglobin 28.9 pg (25.0-34.0); Mean Corpuscular Hgb Conc 33.2 g/dL (32.0-36.0); Mean Corpuscular Volume 86.8 fL (80.0-100.0); Mean Platelet Volume 11.5 fL (9.4-12.4); Platelet Count 309 K/uL (130-400); RDW Coefficient of Variation 13.5 % (11.5-14.5); RDW Standard Deviation 42.9 fL (36.4-46.3); White Blood Count 15.64 K/ul (4.8-10.8)
[2023-02-13] MEDS: INSULIN ASPART PER UNIT CHARGE SC SCH ×4 (08:58→20:29)
[2023-02-13 09:02] LABS: BUN Creatinine Ratio 21.3 (10-20); Calcium 10.5 mg/dl (8.6-10.3); Creatinine Clr Calc Pharmacy 45.8 ml/min; Est GFR (African American) 41.5 ml/min; Est GFR (Non-African American) 35.8 ml/min
[2023-02-13] MEDS ORDERED: VANCOMYCIN HCL 1,500 MG in SODIUM CHLORIDE 0.9% 500 ML IV ONE (10:00)
--- NOTE | 2023-02-13 11:23 | Surgery Consultation ---
Date of Consultation February 13, 2023 Assessment & Plan (1) Abdominal wall abscess at site of surgical wound: possible mesh infection await cultures and would treat possible mesh infection with abx if mesh declares as infected may need to be removed eventually Present on Admission?: Yes History of Present Illness Reason for Consultation: possible mesh infection Attending Physician: Richard Cox MD History of Present Illness Ni Tolliver is a 77 year old female who was admitted with frequent falls and generalized weakness. She has a chronic draining wound above a previously repaired ventral hernia which has mesh. Her falls are caused by her peripheral neuropathy from diabetes and spinal stenosis. She has had some confusion. An ultrasound shows the sinus track near her mesh and it is draining turbid fluid.. Allergies Allergy/AdvReac Type Severity Reaction Status Date / Time Aminoglycosides Allergy Intermediate rash Verified 02/09/23 15:04 neomycin Allergy Intermediate RASH Verified 02/09/23 15:04 nickel Allergy Intermediate rash Verified 02/09/23 15:04 piroxicam Allergy Intermediate RASH Verified 02/09/23 15:04 polymyxin B Allergy Intermediate rash Verified 02/09/23 15:04 house dust Allergy Mild Sneezing Verified 02/09/23 15:04 oxycodone [From Roxicodone] AdvReac Mild Shakiness Verified 02/09/23 15:04 Rsqvkng-[id number]-SiM Reductase AdvReac Mild MUSCLE AND Verified 02/09/23 15:04 Inhibitor JOINT PAIN [Coccuru-Iyw-Ils Reductase Inhibitor] Home Medications Medication Instructions Recorded Confirmed Type albuterol sulfate 90 mcg/actuation 1 - 2 puffs inhalation Q4H PRN 06/15/19 02/09/23 Rx aerosol inhaler shortness of breath or wheezing #8.5 grams fluticasone propionate 50 1 spray intranasal DAILY PRN 06/05/20 02/09/23 History mcg/actuation nasal allergy symptoms spray,suspension (Flonase Allergy Relief) acetaminophen 500 mg tablet 1,000 mg PO Q8 PRN fever or pain 09/25/20 02/09/23 Rx #30 tabs thiamine HCl (vitamin B1) 50 mg 50 mg PO QAM #30 tabs 09/25/20 02/09/23 Rx tablet (Vitamin B-1) cinacalcet 30 mg tablet (Sensipar) 30 mg PO DAILY #90 tabs 10/28/20 02/09/23 Rx ipratropium 20 mcg-albuterol 100 1 puff inhalation Q4H PRN 10/28/20 02/09/23 Rx mcg/actuation mist for inhalation shortness of breath or wheezing #4 (Combivent Respimat) grams amlodipine 5 mg tablet 5 mg PO PM #90 tabs 05/13/21 02/09/23 Rx ibuprofen 600 mg tablet 600 mg PO TID PRN Pain 05/28/21 02/09/23 History furosemide 20 mg tablet 20 mg PO DAILY 09/15/21 02/09/23 History fluticasone propionate 110 1 puff inhalation BID PRN Wheezing 02/26/22 02/09/23 History mcg/actuation HFA aerosol inhaler (Flovent HFA) fenofibrate nanocrystallized 145 145 mg PO DAILY #90 tabs 05/26/22 02/09/23 Rx mg tablet hydralazine 25 mg tablet 25 mg PO TID #270 tabs 07/07/22 02/09/23 Rx rabeprazole 20 mg tablet,delayed 20 mg PO DAILY #30 tabs 07/20/22 02/09/23 Rx release (AcipHex) rivaroxaban 15 mg tablet 15 mg PO DAILY #30 tabs 07/20/22 02/09/23 Rx duloxetine 60 mg capsule,delayed 60 mg PO HS #90 caps 08/05/22 02/09/23 Rx release alpha lipoic acid 100 mg capsule 300 mg PO BID 08/17/22 02/09/23 History pen needle, diabetic 32 gauge x #100 ea 09/20/22 02/09/23 Rx 5/32" (BD Ultra-Fine Shanel Pen Needle) amlodipine 2.5 mg tablet 2.5 mg PO QAM 10/26/22 02/09/23 History ondansetron 4 mg disintegrating 4 mg PO Q8H PRN nausea and 12/11/22 02/09/23 Rx tablet vomiting #30 tabs pregabalin 75 mg capsule (Lyrica) 75 mg PO .COMPLEX #120 caps 12/24/22 02/09/23 Rx levothyroxine 150 mcg tablet 150 mcg PO DAILYBB #90 tabs 01/04/23 02/09/23 Rx insulin glargine 100 unit/mL (3 6 unit (0.06 mL) subcut HS 30 days 02/05/23 02/09/23 Rx mL) subcutaneous pen (Lantus #3 mL Solostar U-100 Insulin) chlorzoxazone 500 mg tablet 500 mg PO TID 02/09/23 02/09/23 History hydroxyzine HCl 25 mg tablet 50 mg PO HS PRN itching 02/09/23 02/09/23 History losartan 100 mg tablet 100 mg PO DAILY 02/09/23 02/09/23 History metoprolol tartrate 25 mg tablet 25 mg PO BID 02/09/23 02/09/23 History trazodone 50 mg tablet 50 mg PO HS 02/09/23 02/09/23 History triamcinolone acetonide 0.1 % 1 applic topical BID PRN .flare ups 02/09/23 02/09/23 History topical ointment Patient History Medical History (Updated 02/13/23 @ 11:24 by Sanket Lu MD) Acquired claw toe of left foot Acquired claw toe of right foot Acquired hallux valgus of right foot Allergic rhinitis Atrial fibrillation Atrial fibrillation with slow ventricular response Callus Chest pain Chronic back pain CKD (chronic kidney disease), stage III Controlled type 2 diabetes mellitus with neurologic complication, with long-term current use of insulin Degenerative disc disease Diabetic peripheral neuropathy Dysesthesia Dysphagia Fall Familial tremor GERD (gastroesophageal reflux disease) GERD (gastroesophageal reflux disease) Graves disease WITH RADIOACTIVE IODINE Hallux valgus (acquired), left foot Hypercalcemia Hyperlipidemia Hyperparathyroidism Hypertension Hypothyroidism Insomnia Loss of protective sensation of skin of deformed foot Microalbuminuria Morbid obesity Osteoarthritis Primary hyperparathyroidism Seborrheic keratosis Septicemia TREATED AT [facility] (BEGINNING OF 2017) AFFECTED RIGHT LEG. Sinus bradycardia Sleep apnea CPAP Toxic encephalopathy Type 2 diabetes mellitus with diabetic peripheral angiopathy without gangrene Surgical History Fusion of spine X3 L1-L5 History of adenoidectomy History of appendectomy LAP History of bilateral tubal ligation History of cataract surgery BILATERAL History of cholecystectomy LAP History of colonoscopy History of esophagogastroduodenoscopy (EGD) History of herniorrhaphy UMBILICAL REPAIR x 2 History of tonsillectomy History of total hip arthroplasty BILATERAL History of total knee replacement BILATERAL History of total shoulder replacement RIGHT Nausea and vomiting after administration of anesthetic agent Family History Father Family history of diabetes mellitus Arthritis Hypertension Stroke Lung disease Obesity Diabetes Mother Arthritis Diabetes Hypertension Stroke Obesity Depression Brother Depression Suicide Aunt Uterine cancer Grandfather (Maternal) Colorectal cancer Aunt Colorectal cancer Denies family history of Prostate cancer Myocardial infarction Breast cancer Social History Smoking Status: Never smoker Second Hand Exposure: No; Do You Dip or Chew Tobacco: No; Tobacco Cessation Education Requested by Patient: No Hx Alcohol Use: No Hx Substance Use: No Preferred Language: Surinamese Communication Ability: Impaired Visual Impairment: Limited Hearing Ability: Normal [employer] Required: No Beliefs That Will Affect Care: None marital status: Current Living Situation: Spouse current occupational status: retired Other Information That Helps Us Care for You: No Feels Safe at Home: Yes Safety Concerns: Feels Safe At This Time Childhood Exposure to Second-Hand Smoke: Yes Diet: diabetic and regular Dental Care, Regularly: Yes Physical Activity Frequency: 3-4 Times per Week Seatbelt Use: always Sunscreen Use: Yes Assistive Devices: Walker Review of Systems Review of Systems: Unobtainable due to reduced consciousness ( in room) Constitutional: no fever and no chills Respiratory: no dyspnea Cardiovascular: no chest pain Gastrointestinal: no abdominal pain, no nausea and no vomiting Neurologic: + falls and + generalized weakness; no localized weakness Psychiatric: + behavioral changes Results & Data Vital Signs (Past 12 Hours) Vital Signs Temp Pulse Resp BP Pulse Ox O2 Del Method O2 Flow Rate 02/13/23 07:40 Nasal Cannula 3 02/13/23 08:30 109 H 127/77 02/13/23 07:37 37.3 C 111 H 16 120/78 93 Nasal Cannula 3 Diagnostic Findings US soft tissue abd wall CLINICAL HISTORY: abdominal wall near umbilicus COMPARISON STUDY: None. FINDINGS: Real-time sonographic imaging of the periumbilical location was performed with collections representative images submitted. At the patient's area of interest there is a small tract of complex fluid within the infraumbilical subcutaneous soft tissues which appears to connect to the skin surface. There is a heterogeneous shadowing area within the abdominal wall which favors mesh repair of a prior hernia. This small fluid tract abuts the suspected mesh. No evidence for recurrent hernia or masses. IMPRESSION: At the patient's area of interest there is a small tract of complex fluid within the infraumbilical subcutaneous soft tissues which appears to connect to the skin surface. This small tract of fluid also appears to connect to what appears to be an abdominal wall mesh from prior hernia repair.
[2023-02-13] MEDS: FENOFIBRATE NANOCRYSTALLIZED 145 MG TABLET PO SCH (12:17)
[2023-02-13] MEDS: PIPERACILLIN/TAZOBACTAM 4.5 GM in DEXTROSE 5% 100 ML IV SCH ×2 (13:29→20:20)
[2023-02-13] MEDS: CINACALCET HCL 30 MG TAB PO SCH (13:31)
[2023-02-13] MEDS: LOSARTAN POTASSIUM 50 MG TAB PO SCH (13:32)
--- NOTE | 2023-02-13 16:13 | Hospitalist Progress Note ---
Date of Service February 13, 2023 Assessment & Plan (1) Encephalopathy: Plan: Patient with worsening confusion and encephalopathy which may be toxic encephalopathy as she is on muscle relaxants which also may be metabolic encephalopathy from possible panniculitis had previous umbilical hernia repair site. The area does have some drainage a line of demarcation is marked vancomycin/Zosyn wound culture will be obtained preliminary gram-positive's once resulted may consider de-escalation With regard to toxic encephalopathy medications are held CT scan was obtained and was unremarkable for any acute changes in her head has improvement after medications are held and instituting treatment for panniculitis Leukocytosis concern canal be possible panniculitis With concern of sinus tract possible complex fluid collection touching her mesh of her umbilical hernia repair surgical consultation is ordered (2) Atrial fibrillation: Plan: Chronic atrial fibrillation Xarelto for anticoagulation Rate control with metoprolol (3) Ambulatory dysfunction: Plan: Curious that the patient's had slow progression of amatory dysfunction at home and now declares an acute problem which appears to be panniculitis with possible tract extension to her mesh. Likely her issues are Multifactorial with morbid obesity, spinal stenosis, diabetic peripheral neuropathy as well as acute metabolic encephalopathy CT head negative Will check B12, CK (history of statin myopathy) Given mild confusion will also complete infection workup although this appears to be better today than yesterday TSH (recently performed in October and ) Spinal stenosis with fall no pain at this time PT/OT, consider placement for inpatient rehab (4) Polyneuropathy: Plan: Patient not complaining of any pain we will hold medications at this time that could be clouding her mental sensorium (5) Sleep apnea: Plan: CPAP HS Plan VTE Prophylaxis - Xarelto Patient made full admission due to metabolic encephalopathy secondary to panniculitis Admission and Anticipated Discharge Date Admission Date: February 11, 2023 Subjective Patient seems less lethargic and drugged up after starting her muscle relaxers. She does not have any exacerbation or worsening of her chronic back pain but certainly if this reoccurs we will start her Lyrica at lower doses. She also has had improvement of her abdominal panniculitis although ultrasound is suggestive of possible communication to the mesh placed for umbilical hernia repair. Surgical consultation will evaluate the patient however curbside discussion feels that antibiotic are the initial treatment of choice without rushing in for surgical removal Physical Exam Physical Exam: She is awake and alert she is not completely back to her baseline as far as I remember. Her cardiac exam is regular her lungs are clear her abdomen is with normal bowel sounds there is a pin point opening at the scar from her umbilical hernia repair this is midline there is induration of the soft tissues surrounding the scar this is slightly less than 1 day prior the erythema that was blushing from this pinpoint opening has receded quite substantially Results & Data Results & Data Vital Signs (Past 12 Hours) Vital Signs Temp Pulse Resp BP BP Pulse Ox O2 Del Method 02/13/23 14:57 98.1 F 02/13/23 14:37 100.0 F H 76 18 155/85 H 94 Nasal Cannula 02/13/23 07:40 Nasal Cannula 02/13/23 08:30 109 H 127/77 02/13/23 07:37 99.1 F 111 H 16 120/78 93 Nasal Cannula O2 Flow Rate 02/13/23 14:57 02/13/23 14:37 3 02/13/23 07:40 3 02/13/23 08:30 02/13/23 07:37 3 Laboratory Results Reviewed CBC reviewed chemistry PG Care Time/CCT Total # of Minutes Spent Total Time Spent with Patient: Total time spent is greater than 50% in coordination of care (as documented) at patient's floor/unit and/or counseling patient: Coding Level of Care Code 94416 SUB INP/OBS CARE 3/50MIN Diagnoses Encephalopathy G93.40 Atrial fibrillation I48.91 Ambulatory dysfunction R26.2 Polyneuropathy G62.9 Sleep apnea G47.30
[2023-02-13] MEDS: DULoxetine HCL 60 MG CAP PO SCH (20:14)
[2023-02-14] MEDS: PIPERACILLIN/TAZOBACTAM 4.5 GM in DEXTROSE 5% 100 ML IV SCH ×3 (05:34→19:19)
[2023-02-14] MEDS: LEVOTHYROXINE SODIUM 150 MCG TABLET PO SCH (05:34)
[2023-02-14 06:00] LABS: Hematocrit (blood only) 38.7 % (37.0-47.0); Hemoglobin 12.7 g/dl (12.0-16.0); Mean Corpuscular Hemoglobin 28.1 pg (25.0-34.0); Mean Corpuscular Hgb Conc 32.8 g/dL (32.0-36.0); Mean Corpuscular Volume 85.6 fL (80.0-100.0); Mean Platelet Volume 11.1 fL (9.4-12.4); Platelet Count 351 K/uL (130-400); RDW Coefficient of Variation 13.7 % (11.5-14.5); RDW Standard Deviation 42.8 fL (36.4-46.3); Red Blood Count 4.52 M/uL (4.20-5.40); White Blood Count 15.59 K/ul (4.8-10.8)
[2023-02-14 06:13] LABS: BUN Creatinine Ratio 27.4 (10-20); Calcium 10.8 mg/dl (8.6-10.3); Est GFR (African American) 48.5 ml/min; Est GFR (Non-African American) 41.9 ml/min; Potassium 3.9 mmol/L (3.5-5.1)
--- NOTE | 2023-02-14 08:09 | Surgery Progress Note ---
Date of Service February 14, 2023 Assessment & Plan (1) Abdominal wall abscess at site of surgical wound: Plan: con't IV abx responding potentially involved mesh with acute infection Present on Admission?: Yes Admission and Anticipated Discharge Date Admission Date: February 11, 2023 Subjective feels better more alert this AM no pain vitals improved Review of Systems Constitutional: no fever and no chills Respiratory: no cough and no dyspnea Cardiovascular: no chest pain Gastrointestinal: no abdominal pain, no nausea, no vomiting and no change in bowel habits Genitourinary: no dysuria Musculoskeletal: no back pain Neurologic: + generalized weakness; no localized weakness Psychiatric: no behavioral changes Physical Exam Constitutional: WD/WN, vitals as above Eyes: PERRL, conjunctivae normal, anicteric sclerae Neck: trachea midline Respiratory: normal respiratory effort, lungs clear to auscultation Gastrointestinal (Abdomen): Inspection/Auscultation: abdomen normal to inspection, normal bowel sounds and + significant pannus; abdomen not distended Percussion/Palpation: abdomen soft; abdomen nontender, no guarding and abdomen not rigid erythema improved; less drainage and more serous this AM Musculoskeletal: Head/Neck/Chest: normocephalic and head atraumatic Skin: no rashes, warm and dry Results & Data Vital Signs (Past 12 Hours) Vital Signs Temp Pulse Resp BP Pulse Ox O2 Del Method O2 Flow Rate 02/13/23 20:12 37.2 C 86 16 152/84 H 96 Nasal Cannula 3
[2023-02-14] MEDS: FUROSEMIDE 20 MG TAB PO SCH (08:24)
[2023-02-14] MEDS: THIAMINE HCL 50 MG TABLET PO SCH (08:25)
[2023-02-14] MEDS: METOPROLOL TARTRATE 25 MG TAB PO SCH ×2 (08:25→19:22)
[2023-02-14] MEDS: amLODIPine BESYLATE 5 MG TAB PO SCH ×2 (08:27→19:22)
[2023-02-14] MEDS: hydrALAZINE HCL 25 MG TAB PO SCH ×3 (08:27→19:21)
[2023-02-14] MEDS: RIVAROXABAN 15 MG TAB PO SCH (08:28)
[2023-02-14] MEDS: PANTOprazole 40 MG TAB PO SCH (08:28)
[2023-02-14] MEDS: CIPRO 0.2%/HYDROCORTISONE 1% OTIC SUSP 10 ML BTL OTR SCH (08:32)
[2023-02-14] MEDS: INSULIN ASPART PER UNIT CHARGE SC SCH ×4 (09:03→20:59)
[2023-02-14] MEDS: VANCOMYCIN HCL 1,500 MG in SODIUM CHLORIDE 0.9% 500 ML IV SCH (10:19)
--- NOTE | 2023-02-14 12:16 | Pharmacy Report ---
Pharmacy PK ABX Note - Date of Service February 14, 2023 - Assessment and Plan Assessment 77 year old F receiving Vancomycin and Rocephin for treatment of soft skin and tissue infection. Pertinent microbiologic data includes: Blood cultures negative to date, Urine culture no growth, abdominal culture growing staph species. SCR 1.41 --> 1.24 this AM. Day # 3 of antimicrobial therapy. Plan 02/14: * Random level 12 this AM, will schedule dose * Maintenance 1500 mg q18H * This is predicted to achieve therapeutic AUC/MAJOR * Random level ordered for 02/16 with AM labs 02/12 Vancomycin * Loading dose: 2500 mg IV x 1 * Due to patient's age, weight, and body habitus, will dose vancomycin based upon levels at the beginning. Pharmacokinetic estimates suggest that [id number] regimens would be effective. Therefore will obtain random tomorrow morning which will be < 24 hours. * Random level ordered for: 02/13/23 Pharmacy will continue to follow and will adjust dose/frequency as necessary. Thank you. Pharmacy has transitioned to AUC monitoring for vancomycin. AUC/MAJOR is the preferred PK/PD target and is associated with decreased risk of nephrotoxicity compared to traditional trough targets.
[2023-02-14] MEDS ORDERED: LORazepam 2 MG/1 ML VIAL IV STA (12:30)
[2023-02-14] MEDS: FENOFIBRATE NANOCRYSTALLIZED 145 MG TABLET PO SCH (12:40)
[2023-02-14] MEDS: LOSARTAN POTASSIUM 50 MG TAB PO SCH (13:23)
[2023-02-14] MEDS: PREGABALIN 75 MG CAP PO SCH (14:02)
[2023-02-14] MEDS: CINACALCET HCL 30 MG TAB PO SCH (14:59)
--- NOTE | 2023-02-14 17:47 | Hospitalist Progress Note ---
Date of Service February 14, 2023 Assessment & Plan (1) Encephalopathy: Plan: Patient with worsening confusion and encephalopathy which may be toxic encephalopathy as she is on muscle relaxants which also may be metabolic encephalopathy from possible panniculitis had previous umbilical hernia repair site. With regard to toxic encephalopathy improved as medications were held CT scan was obtained and was unremarkable for any acute changes in her head has Overall improvement after medications are held and instituting treatment for panniculitis, family states patient did have dental cleaning a few weeks prior, us shows tract from skin communicating to mesh With concern of sinus tract possible complex fluid collection touching her mesh of her umbilical hernia repair, surgical consultation is following Leukocytosis secondary panniculitis with fluid collection will have ID consult on 02/15 (2) Atrial fibrillation: Plan: Chronic atrial fibrillation Xarelto for anticoagulation Rate control with metoprolol (3) Ambulatory dysfunction: Plan: Curious that the patient's had slow progression of amatory dysfunction at home and now declares an acute problem which appears to be panniculitis with possible tract extension to her mesh. Likely her issues are Multifactorial with morbid obesity, spinal stenosis, diabetic peripheral neuropathy as well as acute metabolic encephalopathy CT head negative Will check B12, CK (history of statin myopathy) Given mild confusion will also complete infection workup although this appears to be better today than yesterday TSH (recently performed in October and WN) Spinal stenosis with fall no pain at this time PT/OT, consider placement for inpatient rehab (4) Polyneuropathy: Plan: Patient not complaining of any pain we will hold medications at this time that could be clouding her mental sensorium (5) Sleep apnea: Plan: CPAP HS Plan VTE Prophylaxis - Xarelto Patient made full admission due to metabolic encephalopathy secondary to panniculitis Admission and Anticipated Discharge Date Admission Date: February 11, 2023 Subjective pt feels anxious , abdominal wall is still draining, induration is less, family is at bedside and updated Physical Exam Physical Exam: She is awake and alert she is not completely back to her baseline as far as I remember. Her cardiac exam is regular her lungs are clear her abdomen is with normal bowel sounds there is a 0.5 cm opening at the scar from her umbilical hernia repair this is midline there is induration of the soft tissues surrounding the scar this is slightly less than 1 day prior the erythema that was blushing from this pinpoint opening has receded quite substantially Results & Data Results & Data Vital Signs (Past 12 Hours) Vital Signs Temp Pulse Pulse Resp BP Pulse Ox O2 Del Method 02/14/23 16:00 97.7 F 77 16 153/85 H 98 Nasal Cannula 02/14/23 08:15 Nasal Cannula 02/14/23 07:30 97.7 F 95 H 16 154/87 H 96 Nasal Cannula 02/14/23 08:15 109 H 20 127/68 O2 Flow Rate 02/14/23 16:00 3 02/14/23 08:15 3 02/14/23 07:30 3 02/14/23 08:15 Laboratory Results Reviewed CBC reviewed chemistry PG Care Time/CCT Total # of Minutes Spent Total Time Spent with Patient: Total time spent is greater than 50% in coordination of care (as documented) at patient's floor/unit and/or counseling patient: Coding Level of Care Code 67269 SUB INP/OBS CARE 2/35MIN Diagnoses Encephalopathy G93.40 Atrial fibrillation I48.91 Ambulatory dysfunction R26.2 Polyneuropathy G62.9 Sleep apnea G47.30
[2023-02-14] MEDS: DULoxetine HCL 60 MG CAP PO SCH (19:21)
[2023-02-14] MEDS: PREGABALIN 150 MG CAP PO SCH (20:26)
[2023-02-15] MEDS: VANCOMYCIN HCL 1,500 MG in SODIUM CHLORIDE 0.9% 500 ML IV SCH (03:23)
[2023-02-15] MEDS: LEVOTHYROXINE SODIUM 150 MCG TABLET PO SCH (05:57)
[2023-02-15] MEDS: PIPERACILLIN/TAZOBACTAM 4.5 GM in DEXTROSE 5% 100 ML IV SCH ×2 (05:57→13:40)
[2023-02-15 07:18] LABS: Hematocrit (blood only) 37.6 % (37.0-47.0); Hemoglobin 12.5 g/dl (12.0-16.0); Mean Corpuscular Hgb Conc 33.2 g/dL (32.0-36.0); Mean Corpuscular Volume 84.3 fL (80.0-100.0); Platelet Count 388 K/uL (130-400); RDW Coefficient of Variation 13.9 % (11.5-14.5); RDW Standard Deviation 42.8 fL (36.4-46.3); Red Blood Count 4.46 M/uL (4.20-5.40); White Blood Count 10.72 K/ul (4.8-10.8)
[2023-02-15] MEDS: METOPROLOL TARTRATE 25 MG TAB PO SCH ×2 (08:14→20:10)
[2023-02-15] MEDS: RIVAROXABAN 15 MG TAB PO SCH (08:14)
[2023-02-15] MEDS: hydrALAZINE HCL 25 MG TAB PO SCH ×3 (08:14→20:09)
[2023-02-15] MEDS: amLODIPine BESYLATE 5 MG TAB PO SCH ×2 (08:15→20:10)
[2023-02-15] MEDS: FUROSEMIDE 20 MG TAB PO SCH (08:15)
[2023-02-15] MEDS: PANTOprazole 40 MG TAB PO SCH (08:15)
[2023-02-15] MEDS: THIAMINE HCL 50 MG TABLET PO SCH (08:17)
[2023-02-15] MEDS: PREGABALIN 75 MG CAP PO SCH ×2 (08:23→13:39)
[2023-02-15] MEDS: INSULIN ASPART PER UNIT CHARGE SC SCH ×4 (08:25→21:50)
[2023-02-15] MEDS: ACETAMINOPHEN 500 MG TAB PO PRN ×2 (09:33→20:08)
--- NOTE | 2023-02-15 10:42 | Infectious Disease Consult ---
Date of Consultation February 15, 2023 Assessment & Plan (1) Infected hernioplasty mesh: Plan Micro: 02/12 Abd wound cx: MSSA 02/11 UCx: NG 02/09 BCx x2: NG Antibiotics: Vanc 02/12 - present Pip-tazo 02/13 - present Ceftriaxone 02/12 Problems: #Hernia mesh infection with MSSA #Aminoglycoside allergy: rash 77 yo F with history of afib, CKD, DM2, HTN, HLD, TIERRA, morbid obesity, umbilical hernia repair x 2 who presented on 02/09/23 with frequent falls, generalized weakness, confusion, found to have mesh infection. Her reported that pt has a long history of falls, progressively worsening over years, and that she had fallen twice in the last 12 hours. Pt reported her legs felt weak, and she denied loss of consciousness. He felt she was not safe at home and requested inpatient rehabilitation. He also felt she was more confused the day prior to presentation. On presentation, pt was afebrile, hypertensive. Labs showed WBC 15.75, ESR 59, CRP 17.3, procalcitonin 0.19. CXR negative. CT head without acute findings. UCx negative. During admission, pt has had moments of confusion. Had T 37.9 on 02/11/23, and T 37.8 on 02/13/23. She was noted to have a chronic draining wound on her abdomen above a previously repaired ventral hernia with mesh. An ultrasound of the area showed a small tract of complex fluid within the infraumbilical subcutaneous soft tissues which appears to connect to the skin surface, and a small fluid tract which appears to connect to what appears to be an abdominal wall mesh from prior hernia repair. Pt was started on antibiotics, wound culture grew MSSA. Surgery was consulted and recommended antibiotic management, felt mesh would be difficult to remove. Leukocytosis has downtrended to 10.7. Recommendations: -US shows draining fistula connecting to her mesh. The infection will be very difficult to eradicate without mesh removal, especially with this being Staph aureus. Ideally, pt would undergo surgical debridement and mesh removal. -If surgery is not possible, then pt will need lifelong oral antibiotics. Will continue to follow. Please page [facility] with further questions. Consultation Information This patient recommendation is based on a telemedicine consult request which was completed asynchronously through chart review and information provided by the primary physician. The patient was not seen or examined today. The evaluation is consultative in nature and all patient care and treatment decisions can either be accepted or rejected by the patient's primary hospital-based treating physician using their own independent medical judgment for their patient. Horse [employer] contact information: Please call [facility] . (Phone Number For Physician Use Only) Time Spent Reviewing Chart: 31+ minutes History of Present Illness Reason for Consultation: Mesh infection Requesting Physician: Dr. Richard Cox Attending Physician: Richard Cox MD History of Present Illness 77 yo F with history of afib, CKD, DM2, HTN, HLD, TIERRA, morbid obesity, umbilical hernia repair x 2 who presented on 02/09/23 with frequent falls, generalized weakn ess, confusion. Her reported that pt has a long history of falls, progressively worsening over years, and that she had fallen twice in the last 12 hours. Pt reported her legs felt weak, and she denied loss of consciousness. He felt she was not safe at home and requested inpatient rehabilitation. He also felt she was more confused the day prior to presentation. On presentation, pt was afebrile, hypertensive. Labs showed WBC 15.75, ESR 59, CRP 17.3, procalcitonin 0.19. CXR negative. CT head without acute findings. During admission, pt has had moments of confusion. Had T 37.9 on 02/11/23, and T 37.8 on 02/13/23. She was noted to have a chronic draining wound on her abdomen above a previously repaired ventral hernia with mesh. An ultrasound of the area showed a small tract of complex fluid within the infraumbilical subcutaneous soft tissues which appears to connect to the skin surface, and a small fluid tract which appears to connect to what appears to be an abdominal wall mesh from prior hernia repair. A wound culture was taken and the patient was started on antibiotics. The wound culture grew MSSA. Surgery was consulted and recommended antibiotic management, felt mesh would be difficult to remove. Leukocytosis has downtrended to 10.7. Allergies Allergy/AdvReac Type Severity Reaction Status Date / Time Aminoglycosides Allergy Intermediate rash Verified 02/09/23 15:04 neomycin Allergy Intermediate RASH Verified 02/09/23 15:04 nickel Allergy Intermediate rash Verified 02/09/23 15:04 piroxicam Allergy Intermediate RASH Verified 02/09/23 15:04 polymyxin B Allergy Intermediate rash Verified 02/09/23 15:04 house dust Allergy Mild Sneezing Verified 02/09/23 15:04 oxycodone [From Roxicodone] AdvReac Mild Shakiness Verified 02/09/23 15:04 Swtoxhm-ZOB-TpS Reductase AdvReac Mild MUSCLE AND Verified 02/09/23 15:04 Inhibitor JOINT PAIN [Rehfchr-Evm-Rai Reductase Inhibitor] Home Medications Medication Instructions Recorded Confirmed Type albuterol sulfate 90 mcg/actuation 1 - 2 puffs inhalation Q4H PRN 06/15/19 02/09/23 Rx aerosol inhaler shortness of breath or wheezing #8.5 grams fluticasone propionate 50 1 spray intranasal DAILY PRN 06/05/20 02/09/23 History mcg/actuation nasal allergy symptoms spray,suspension (Flonase Allergy Relief) acetaminophen 500 mg tablet 1,000 mg PO Q8 PRN fever or pain 09/25/20 02/09/23 Rx #30 tabs thiamine HCl (vitamin B1) 50 mg 50 mg PO QAM #30 tabs 09/25/20 02/09/23 Rx tablet (Vitamin B-1) cinacalcet 30 mg tablet (Sensipar) 30 mg PO DAILY #90 tabs 10/28/20 02/09/23 Rx ipratropium 20 mcg-albuterol 100 1 puff inhalation Q4H PRN 10/28/20 02/09/23 Rx mcg/actuation mist for inhalation shortness of breath or wheezing #4 (Combivent Respimat) grams amlodipine 5 mg tablet 5 mg PO PM #90 tabs 05/13/21 02/09/23 Rx ibuprofen 600 mg tablet 600 mg PO TID PRN Pain 05/28/21 02/09/23 History furosemide 20 mg tablet 20 mg PO DAILY 09/15/21 02/09/23 History fluticasone propionate 110 1 puff inhalation BID PRN Wheezing 02/26/22 02/09/23 History mcg/actuation HFA aerosol inhaler (Flovent HFA) fenofibrate nanocrystallized 145 145 mg PO DAILY #90 tabs 05/26/22 02/09/23 Rx mg tablet hydralazine 25 mg tablet 25 mg PO TID #270 tabs 07/07/22 02/09/23 Rx rabeprazole 20 mg tablet,delayed 20 mg PO DAILY #30 tabs 07/20/22 02/09/23 Rx release (AcipHex) rivaroxaban 15 mg tablet 15 mg PO DAILY #30 tabs 07/20/22 02/09/23 Rx duloxetine 60 mg capsule,delayed 60 mg PO HS #90 caps 08/05/22 02/09/23 Rx release alpha lipoic acid 100 mg capsule 300 mg PO BID 08/17/22 02/09/23 History pen needle, diabetic 32 gauge x #100 ea 09/20/22 02/09/23 Rx 5/32" (BD Ultra-Fine Shanel Pen Needle) amlodipine 2.5 mg tablet 2.5 mg PO QAM 10/26/22 02/09/23 History ondansetron 4 mg disintegrating 4 mg PO Q8H PRN nausea and 12/11/22 02/09/23 Rx tablet vomiting #30 tabs pregabalin 75 mg capsule (Lyrica) 75 mg PO .COMPLEX #120 caps 12/24/22 02/09/23 Rx levothyroxine 150 mcg tablet 150 mcg PO DAILYBB #90 tabs 01/04/23 02/09/23 Rx insulin glargine 100 unit/mL (3 6 unit (0.06 mL) subcut HS 30 days 02/05/23 02/09/23 Rx mL) subcutaneous pen (Lantus #3 mL Solostar U-100 Insulin) chlorzoxazone 500 mg tablet 500 mg PO TID 02/09/23 02/09/23 History hydroxyzine HCl 25 mg tablet 50 mg PO HS PRN itching 02/09/23 02/09/23 History losartan 100 mg tablet 100 mg PO DAILY 02/09/23 02/09/23 History metoprolol tartrate 25 mg tablet 25 mg PO BID 02/09/23 02/09/23 History trazodone 50 mg tablet 50 mg PO HS 02/09/23 02/09/23 History triamcinolone acetonide 0.1 % 1 applic topical BID PRN .flare ups 02/09/23 02/09/23 History topical ointment Patient History Medical History (Updated 02/15/23 @ 11:05 by Gretel Worley MD) Acquired claw toe of left foot Acquired claw toe of right foot Acquired hallux valgus of right foot Allergic rhinitis Atrial fibrillation Atrial fibrillation with slow ventricular response Callus Chest pain Chronic back pain CKD (chronic kidney disease), stage III Controlled type 2 diabetes mellitus with neurologic complication, with long-term current use of insulin Degenerative disc disease Diabetic peripheral neuropathy Dysesthesia Dysphagia Fall Familial tremor GERD (gastroesophageal reflux disease) GERD (gastroesophageal reflux disease) Graves disease WITH RADIOACTIVE IODINE Hallux valgus (acquired), left foot Hypercalcemia Hyperlipidemia Hyperparathyroidism Hypertension Hypothyroidism Insomnia Loss of protective sensation of skin of deformed foot Microalbuminuria Morbid obesity Osteoarthritis Primary hyperparathyroidism Seborrheic keratosis Septicemia TREATED AT [facility] (BEGINNING OF 2017) AFFECTED RIGHT LEG. Sinus bradycardia Sleep apnea CPAP Toxic encephalopathy Type 2 diabetes mellitus with diabetic peripheral angiopathy without gangrene Surgical History Fusion of spine X3 L1-L5 History of adenoidectomy History of appendectomy LAP History of bilateral tubal ligation History of cataract surgery BILATERAL History of cholecystectomy LAP History of colonoscopy History of esophagogastroduodenoscopy (EGD) History of herniorrhaphy UMBILICAL REPAIR x 2 History of tonsillectomy History of total hip arthroplasty BILATERAL History of total knee replacement BILATERAL History of total shoulder replacement RIGHT Nausea and vomiting after administration of anesthetic agent Family History Father Family history of diabetes mellitus Arthritis Hypertension Stroke Lung disease Obesity Diabetes Mother Arthritis Diabetes Hypertension Stroke Obesity Depression Brother Depression Suicide Aunt Uterine cancer Grandfather (Maternal) Colorectal cancer Aunt Colorectal cancer Denies family history of Prostate cancer Myocardial infarction Breast cancer Social History Smoking Status: Never smoker Second Hand Exposure: No; Do You Dip or Chew Tobacco: No; Hx Alcohol Use: No Hx Substance Use: No Preferred Language: Slovenian Communication Ability: Impaired Visual Impairment: Limited Hearing Ability: Normal 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 Beliefs That Will Affect Care: None marital status: Current Living Situation: Spouse current occupational status: retired Feels Safe at Home: Yes Childhood Exposure to Second-Hand Smoke: Yes Diet: diabetic and regular Dental Care, Regularly: Yes Physical Activity Frequency: 3-4 Times per Week Seatbelt Use: always Sunscreen Use: Yes Assistive Devices: Walker Review of System Patient not seen Physical Exam Physical Exam: Patient not seen Results & Data Vital Signs (Past 12 Hours) Vital Signs Temp Pulse Resp BP Pulse Ox O2 Del Method O2 Flow Rate 02/15/23 07:39 36.5 C 88 16 130/88 97 Nasal Cannula 3 Laboratory Results Short CBC 02/15/23 Range/Units 06:35 WBC 10.72 (4.8-10.8) K/ul Hgb 12.5 (12.0-16.0) g/dl Hct 37.6 (37.0-47.0) % Plt Count 388 (130-400) K/uL Diagnostic Findings Soft Tissue Ultrasound 02/12/23 13:23 US softtissue abdwall/lwr back CLINICAL HISTORY: abdominal wall near umbilicus COMPARISON STUDY: None. FINDINGS: Real-time sonographic imaging of the periumbilical location was performed with goodwill representative images submitted. At the patient's area of interest there is a small tract of complex fluid within the infraumbilical subcutaneous soft tissues which appears to connect to the skin surface. There is a heterogeneous shadowing area within the abdominal wall which favors mesh repair of a prior hernia. This small fluid tract abuts the suspected mesh. No evidence for recurrent hernia or masses. IMPRESSION: At the patient's area of interest there is a small tract of complex fluid within the infraumbilical subcutaneous soft tissues which appears to connect to the skin surface. This small tract of fluid also appears to connect to what appears to be an abdominal wall mesh from prior hernia repair. ACT 112: Negative or not required by law. Electronically signed by: Librado Mena M.D. 02/12/2023 5:08 PM Medications Administered Current Inpatient Medications Acetaminophen (Acetaminophen 500 Mg Tab) 1,000 mg PO Q8H PRN PRN Reason: pain/fever Stop: 03/13/23 15:22 Last Admin: 02/15/23 09:33 Dose: 1,000 mg Albuterol (Albuterol Hfa 8 Gm Inhaler) 90 puffs INH Q4H PRN PRN Reason: Shortness Of Breath Or Wheezing Stop: 03/11/23 19:59 Amlodipine Besylate (Amlodipine Besylate 5 Mg Tab) 2.5 mg PO QAM [facility] Stop: 03/12/23 08:59 Last Admin: 02/15/23 08:15 Dose: 2.5 mg Amlodipine Besylate (Amlodipine Besylate 5 Mg Tab) 5 mg PO PM FRAN Stop: 03/11/23 20:59 Last Admin: 02/14/23 19:22 Dose: 5 mg Cinacalcet (Cinacalcet Hcl 30 Mg Tab) 30 mg PO DAILY@1400 [facility]AN Stop: 03/12/23 13:59 Last Admin: 02/14/23 14:59 Dose: 30 mg Dextrose (Dextrose 50% 50 Ml Syringe) 25 - 50 ml IV UD PRN; Protocol PRN Reason: Hypoglycemia Protocol Stop: 03/11/23 16:52 Duloxetine HCl (Duloxetine Hcl 60 Mg Cap) 60 mg PO HS [facility] Stop: 03/11/23 20:59 Last Admin: 02/14/23 19:21 Dose: 60 mg Fenofibrate (Fenofibrate Nanocrystallized 145 Mg Tablet) 145 mg PO DAILY@1200 [facility] Stop: 03/12/23 11:59 Last Admin: 02/14/23 12:40 Dose: 145 mg Furosemide (Furosemide 20 Mg Tab) 20 mg PO DAILY FRAN Stop: 03/12/23 08:59 Last Admin: 02/15/23 08:15 Dose: 20 mg Glucagon (Glucagon For Inj 1 Mg Vial) 1 mg SQ UD PRN; Protocol PRN Reason: Hypoglycemia Protocol Stop: 03/11/23 16:52 Glucose (Glucose 10 Tab/Tube) 4 - 8 tab PO UD PRN; Protocol PRN Reason: Hypoglycemia Treatment Stop: 03/11/23 16:52 Glucose (Glucose 40% Gel 15 Gm Tube) 15 - 30 gm PO UD PRN; Protocol PRN Reason: Hypoglycemia Protocol Stop: 03/11/23 16:52 Hydralazine HCl (Hydralazine Hcl 25 Mg Tab) 25 mg PO TID FRAN Stop: 03/11/23 20:59 Last Admin: 02/15/23 08:14 Dose: 25 mg Piperacillin Sod/Tazobactam (Sod 4.5 gm/ Dextrose) 120 mls @ 30 mls/hr IV Q8H FRAN; Protocol Stop: 02/20/23 12:59 Last Infusion: 02/15/23 10:14 Dose: Infused Vancomycin HCl 1,500 mg/ (Sodium Chloride) 530 mls @ 200 mls/hr IV Q18H [facility]AN Stop: 02/21/23 09:59 Last Infusion: 02/15/23 06:02 Dose: Infused Insulin Aspart (Insulin Aspart Per Unit Charge) 0 units SC ACHS [facility] Stop: 03/11/23 16:52 Last Admin: 02/15/23 08:25 Dose: Not Given Levothyroxine Sodium (Levothyroxine Sodium 150 Mcg Tablet) 150 mcg PO DAILYBB FRAN Stop: 03/12/23 06:29 Last Admin: 02/15/23 05:57 Dose: 150 mcg Losartan Potassium (Losartan Potassium 50 Mg Tab) 100 mg PO DAILY@1400 [facility] Stop: 03/12/23 13:59 Last Admin: 02/14/23 13:23 Dose: 100 mg Metoprolol Tartrate (Metoprolol Tartrate 25 Mg Tab) 25 mg PO BID FRAN Stop: 03/11/23 20:59 Last Admin: 02/15/23 08:14 Dose: 25 mg Miscellaneous (Carbohydrates For Hypoglycemia ) 15 - 30 gm PO UD PRN PRN Reason: Hypoglycemia Protocol Stop: 03/11/23 16:52 Miscellaneous Information (Vancomycin Consult Active) 1 each N/A UD PRN PRN Reason: Consult Stop: 03/14/23 13:25 Pantoprazole Sodium (Pantoprazole 40 Mg Tab) 40 mg PO DAILY [facility] Stop: 03/12/23 08:59 Last Admin: 02/15/23 08:15 Dose: 40 mg Pregabalin (Pregabalin 75 Mg Cap) 75 mg PO DAILY@0800,1400 [facility] Stop: 03/16/23 13:59 Last Admin: 02/15/23 08:23 Dose: 75 mg Pregabalin (Pregabalin 150 Mg Cap) 150 mg PO HS [facility] Stop: 03/16/23 20:59 Last Admin: 02/14/23 20:26 Dose: 150 mg Rivaroxaban (Rivaroxaban 15 Mg Tab) 15 mg PO DAILY [facility] Stop: 03/12/23 08:59 Last Admin: 02/15/23 08:14 Dose: 15 mg Thiamine HCl (Thiamine Hcl 50 Mg Tablet) 50 mg PO QAM [facility]AN Stop: 03/12/23 08:59 Last Admin: 02/15/23 08:17 Dose: 50 mg Tramadol HCl (Tramadol Hcl 50 Mg Tablet) 50 mg PO Q6H PRN PRN Reason: Pain Stop: 03/13/23 15:22 Last Admin: 02/11/23 16:08 Dose: 50 mg
[2023-02-15] MEDS: FENOFIBRATE NANOCRYSTALLIZED 145 MG TABLET PO SCH (12:20)
--- NOTE | 2023-02-15 12:38 | Surgery Progress Note ---
Date of Service February 15, 2023 Assessment & Plan (1) Abdominal wall abscess at site of surgical wound: Plan: Cellulitis resolved with IV abx chronic sinus tract extending to mesh via ultrasound avss no leukocytosis Plan: Per review of records had laparoscopic hernia repair with mesh in [address] Morton. Question of overlapping mesh? ID recommendations reviewed. She likely will need mesh removal given sinus tract extending to mesh and infection however given the extent of hernia repair previously and her comorbidities, she may require hernia specialist for surgical removal of mesh and repair. She is responding to IV antibiotics so do not feel this is an emergent need at this time. Discussed with Eneida Kim PA-C who will reach out to Dr. Morton once he returns. Continue conservative management with IV antibiotics for now Continue medical management Dr. Cooper has seen and examined patient, agrees with above. Admission and Anticipated Discharge Date Admission Date: February 11, 2023 Subjective no abdominal pain no fevers or chills she was unaware she had drainage from the abdomen, unsure of when her surgery was limited ROS Physical Exam Constitutional: + morbidly obese, cooperative and comfortable; no acute d istress and not ill appearing Gastrointestinal (Abdomen): Inspection/Auscultation: abdomen not distended Percussion/Palpation: abdomen soft; abdomen nontender, no guarding and abdomen not rigid There is small opening just inferior to umbilical in midline with serous drainage on dressing. Prior skin marking with marker for erythema has completely resolved. No tenderness to palpation. No induration or other areas of fluctuance. Skin: no rashes, warm and dry Psychiatric: Orientation: alert, oriented to person and cooperative; + not oriented x 3 Results & Data Vital Signs (Past 12 Hours) Vital Signs Temp Pulse Resp BP Pulse Ox O2 Del Method O2 Flow Rate 02/15/23 07:45 Nasal Cannula 3 02/15/23 07:39 36.5 C 88 16 130/88 97 Nasal Cannula 3 Laboratory Results 02/15/23 02/15/23 02/15/23 Range/Units 11:45 07:58 06:35 WBC 10.72 (4.8-10.8) K/ul RBC 4.46 (4.20-5.40) M/uL Hgb 12.5 (12.0-16.0) g/dl Hct 37.6 (37.0-47.0) % MCV 84.3 (80.0-100.0) fL MCH 28.0 (25.0-34.0) pg MCHC 33.2 (32.0-36.0) g/dL RDW Std Deviation 42.8 (36.4-46.3) fL RDW Coeff of Jeanette 13.9 (11.5-14.5) % Plt Count 388 (130-400) K/uL MPV 11.0 (9.4-12.4) fL POC Glucose 111 H 126 H (70-99) mg/dl 02/14/23 02/14/23 Range/Units 20:38 16:44 WBC (4.8-10.8) K/ul RBC (4.20-5.40) M/uL Hgb (12.0-16.0) g/dl Hct (37.0-47.0) % MCV (80.0-100.0) fL MCH (25.0-34.0) pg MCHC (32.0-36.0) g/dL RDW Std Deviation (36.4-46.3) fL RDW Coeff of Jeanette (11.5-14.5) % Plt Count (130-400) K/uL MPV (9.4-12.4) fL POC Glucose 126 H 139 H (70-99) mg/dl
[2023-02-15] MEDS: CINACALCET HCL 30 MG TAB PO SCH (13:39)
[2023-02-15] MEDS: LOSARTAN POTASSIUM 50 MG TAB PO SCH (13:39)
--- NOTE | 2023-02-15 14:50 | Hospitalist Progress Note ---
Date of Service February 15, 2023 Assessment & Plan (1) Encephalopathy: Plan: Patient with worsening confusion and encephalopathy which may be toxic encephalopathy as she is on muscle relaxants which also may be metabolic encephalopathy from panniculitis had previous umbilical hernia repair site. With regard to toxic encephalopathy improved as medications were held CT scan was obtained and was unremarkable for any acute changes in her head has Overall improvement after medications are held and instituting treatment for panniculitis, family states patient did have dental cleaning a few weeks prior, us shows tract from skin communicating to mesh With concern of sinus tract possible complex fluid collection touching her mesh of her umbilical hernia repair, surgical consultation is following Leukocytosis secondary panniculitis with fluid collection will have ID consult on 02/15, recommends removal of mesh or life long antibiotics, change to cephalexin 2 gms iv q8 (2) Atrial fibrillation: Plan: Chronic atrial fibrillation Xarelto for anticoagulation Rate control with metoprolol H/o chronic diastolic heart failure, stable typically sees Dr Lopez (3) Ambulatory dysfunction: Plan: Curious that the patient's had slow progression of amatory dysfunction at home and now declares an acute problem which appears to be panniculitis with possible tract extension to her mesh. Likely her issues are Multifactorial with morbid obesity, spinal stenosis, diabetic peripheral neuropathy as well as acute metabolic encephalopathy CT head negative Will check B12, CK (history of statin myopathy) Given mild confusion will also complete infection workup although this appears to be better today than yesterday TSH (recently performed in October and ) Spinal stenosis with fall no pain at this time PT/OT, consider placement for inpatient rehab (4) Polyneuropathy: Plan: Patient not complaining of any pain we will hold medications at this time that could be clouding her mental sensorium (5) Sleep apnea: Plan: CPAP HS Plan VTE Prophylaxis - Xarelto Patient made full admission due to metabolic encephalopathy secondary to panniculitis Admission and Anticipated Discharge Date Admission Date: February 11, 2023 Subjective pt is more awake and alert, she has no back pain, she has improved panniculitis, surgery is following and ID did see with recommendations Physical Exam Physical Exam: She is awake and alert she is not completely back to her baseline as far as I remember. Her cardiac exam is regular her lungs are clear her abdomen is with normal bowel sounds there is a 0.5 cm opening at the scar from her umbilical hernia repair this is midline induration and erythema has receeded Results & Data Results & Data Vital Signs (Past 12 Hours) Vital Signs Temp Pulse Resp BP Pulse Ox O2 Del Method O2 Flow Rate 02/15/23 07:45 Nasal Cannula 3 02/15/23 07:39 97.7 F 88 16 130/88 97 Nasal Cannula 3 PG Care Time/CCT Total # of Minutes Spent Total Time Spent with Patient: Total time spent is greater than 50% in coordination of care (as documented) at patient's floor/unit and/or counseling patient: Coding Level of Care Code 48302 SUB INP/OBS CARE 2/35MIN Diagnoses Encephalopathy G93.40 Atrial fibrillation I48.91 Ambulatory dysfunction R26.2 Polyneuropathy G62.9 Sleep apnea G47.30
[2023-02-15] MEDS: PREGABALIN 150 MG CAP PO SCH (20:08)
[2023-02-15] MEDS: DULoxetine HCL 60 MG CAP PO SCH (20:10)
[2023-02-15] MEDS: ceFAZolin 2000MG 2,000 MG/15 ML SYR IV SCH (21:46)
[2023-02-16] MEDS: ACETAMINOPHEN 500 MG TAB PO PRN ×3 (06:11→21:06)
[2023-02-16] MEDS: ceFAZolin 2000MG 2,000 MG/15 ML SYR IV SCH ×3 (06:12→20:24)
[2023-02-16] MEDS: LEVOTHYROXINE SODIUM 150 MCG TABLET PO SCH (06:12)
[2023-02-16 08:17] LABS: Hematocrit (blood only) 35.9 % (37.0-47.0); Hemoglobin 11.7 g/dl (12.0-16.0); Mean Corpuscular Hemoglobin 27.6 pg (25.0-34.0); Mean Corpuscular Hgb Conc 32.6 g/dL (32.0-36.0); Mean Corpuscular Volume 84.7 fL (80.0-100.0); Mean Platelet Volume 10.7 fL (9.4-12.4); Platelet Count 417 K/uL (130-400); RDW Coefficient of Variation 14.3 % (11.5-14.5); RDW Standard Deviation 44.4 fL (36.4-46.3); Red Blood Count 4.24 M/uL (4.20-5.40); White Blood Count 8.86 K/ul (4.8-10.8)
[2023-02-16] MEDS: INSULIN ASPART PER UNIT CHARGE SC SCH ×4 (08:17→20:28)
[2023-02-16] MEDS: METOPROLOL TARTRATE 25 MG TAB PO SCH ×2 (08:19→20:27)
[2023-02-16] MEDS: hydrALAZINE HCL 25 MG TAB PO SCH ×3 (08:19→20:23)
[2023-02-16] MEDS: FUROSEMIDE 20 MG TAB PO SCH (08:20)
[2023-02-16] MEDS: RIVAROXABAN 15 MG TAB PO SCH (08:20)
[2023-02-16] MEDS: amLODIPine BESYLATE 5 MG TAB PO SCH ×2 (08:21→20:24)
[2023-02-16] MEDS: PANTOprazole 40 MG TAB PO SCH (08:21)
[2023-02-16] MEDS: THIAMINE HCL 50 MG TABLET PO SCH (08:21)
[2023-02-16] MEDS: PREGABALIN 75 MG CAP PO SCH ×2 (08:27→13:50)
[2023-02-16] MEDS: FENOFIBRATE NANOCRYSTALLIZED 145 MG TABLET PO SCH (12:12)
--- NOTE | 2023-02-16 12:51 | Surgery Progress Note ---
Date of Service February 16, 2023 Assessment & Plan (1) Abdominal wall abscess at site of surgical wound: Plan: Cellulitis resolved with IV abx chronic sinus tract extending to mesh via ultrasound avss no leukocytosis Plan: Per review of records had laparoscopic hernia repair with mesh in [address] Morton. Question of overlapping mesh? ID recommendations reviewed. She likely will need mesh removal given sinus tract extending to mesh and infection however given the extent of hernia repair previously and her comorbidities, she may require hernia specialist for surgical removal of mesh and repair. She is responding to IV antibiotics so do not feel this is an emergent need at this time. Dr. Morton expected to see patient tomorrow Continue conservative management with IV antibiotics for now Continue medical management Discussed with Dr. Cooper who agrees with above. Admission and Anticipated Discharge Date Admission Date: February 11, 2023 Subjective feeling okay today no abdominal pain no n,v no fevers or chills Physical Exam Constitutional: WD/WN, vitals as above + morbidly obese, cooperative and comfortable; no acute distress and not ill appearing Respiratory: normal respiratory effort; no respiratory distress Gastrointestinal (Abdomen): Inspection/Auscultation: abdomen normal to inspection and + abdominal surgical scar; abdomen not distended Percussion/Palpation: abdomen soft; abdomen nontender, no guarding, abdomen not rigid and abdomen not firm There is small opening just inferior to umbilicus which is draining purulent/serous drainage especially when pressed upon abdomen superiorly. Previous cellulitis changes have resolved. Nontender to palpation. Skin: no rashes, warm and dry Psychiatric: Orientation: alert and oriented x 3 Results & Data Vital Signs (Past 12 Hours) Vital Signs Pulse BP Pulse Ox O2 Del Method O2 Flow Rate 02/16/23 08:31 87 144/81 H 95 Nasal Cannula 3 Laboratory Results 02/16/23 02/16/23 02/16/23 Range/Units 11:32 07:42 07:10 WBC 8.86 (4.8-10.8) K/ul RBC 4.24 (4.20-5.40) M/uL Hgb 11.7 L (12.0-16.0) g/dl Hct 35.9 L (37.0-47.0) % MCV 84.7 (80.0-100.0) fL MCH 27.6 (25.0-34.0) pg MCHC 32.6 (32.0-36.0) g/dL RDW Std Deviation 44.4 (36.4-46.3) fL RDW Coeff of Jeanette 14.3 (11.5-14.5) % Plt Count 417 H (130-400) K/uL MPV 10.7 (9.4-12.4) fL POC Glucose 139 H 98 (70-99) mg/dl 02/15/23 02/15/23 Range/Units 20:37 16:48 WBC (4.8-10.8) K/ul RBC (4.20-5.40) M/uL Hgb (12.0-16.0) g/dl Hct (37.0-47.0) % MCV (80.0-100.0) fL MCH (25.0-34.0) pg MCHC (32.0-36.0) g/dL RDW Std Deviation (36.4-46.3) fL RDW Coeff of Jeanette (11.5-14.5) % Plt Count (130-400) K/uL MPV (9.4-12.4) fL POC Glucose 118 H 105 H (70-99) mg/dl
[2023-02-16] MEDS: LOSARTAN POTASSIUM 50 MG TAB PO SCH (13:35)
[2023-02-16] MEDS: CINACALCET HCL 30 MG TAB PO SCH (13:35)
--- NOTE | 2023-02-16 17:19 | Hospitalist Progress Note ---
Date of Service February 16, 2023 Assessment & Plan (1) Encephalopathy: Plan: Patient with worsening confusion and encephalopathy which may be toxic encephalopathy as she is on muscle relaxants which also may be metabolic encephalopathy from panniculitis had previous umbilical hernia repair site. With regard to toxic encephalopathy improved as medications were held CT scan was obtained and was unremarkable for any acute changes in her head has Overall improvement after medications are held and instituting treatment for panniculitis, family states patient did have dental cleaning a few weeks prior, us shows tract from skin communicating to mesh With concern of sinus tract possible complex fluid collection touching her mesh of her umbilical hernia repair, surgical consultation is following hopefully will be seen by Dr. Morton Leukocytosis secondary panniculitis with fluid collection, leukocytosis has improved greatly ID consult on 02/15, recommends removal of mesh or life long antibiotics, change to cephalexin 2 gms iv q8 could eventually transition to oral Keflex. Patient will likely be in a rehab situation postdischarge which can be continued with close oversight to her wound (2) Atrial fibrillation: Plan: Chronic atrial fibrillation Xarelto for anticoagulation Continues to be rate controlled with metoprolol H/o chronic diastolic heart failure, stable typically sees Dr Lopez (3) Ambulatory dysfunction: Plan: Curious that the patient's had slow progression of amatory dysfunction at home and now declares an acute problem which appears to be panniculitis with possible tract extension to her mesh. Likely her issues are Multifactorial with morbid obesity, spinal stenosis, diabetic peripheral neuropathy as well as acute metabolic encephalopathy CT head negative Will check B12, CK (history of statin myopathy) Given mild confusion will also complete infection workup although this appears to be better today than yesterday TSH (recently performed in October and ) Spinal stenosis with fall no pain at this time PT/OT, consider placement for inpatient rehab (4) Polyneuropathy: Plan: Patient not complaining of any pain we will hold medications at this time that could be clouding her mental sensorium (5) Sleep apnea: Plan: CPAP HS Plan VTE Prophylaxis - Xarelto Patient made full admission due to metabolic encephalopathy secondary to panniculitis Admission and Anticipated Discharge Date Admission Date: February 11, 2023 Subjective Patient is in good spirits today. I personally spoke to the PA for surgery who states she expressed some purulence from the sinus tract that we see on her abdomen. I relayed the plan to Ms. Pérez that I did speak with and he will try to stop by either later today or tomorrow. Physical Exam Physical Exam: She is awake and alert she is not completely back to her baseline as far as I remember. Her cardiac exam is regular her lungs are clear her abdomen is with normal bowel sounds there is a 0.5 cm opening at the scar from her umbilical hernia repair this is midline induration and erythema has receeded there continues to be a yellow- brownish liquid that is expressible from this opening Results & Data Results & Data Vital Signs (Past 12 Hours) Vital Signs Pulse BP Pulse Ox O2 Del Method O2 Flow Rate 02/16/23 15:37 65 152/84 H 98 Nasal Cannula 3 02/16/23 07:40 Nasal Cannula 3 02/16/23 08:31 87 144/81 H 95 Nasal Cannula 3 Laboratory Results Reviewed CBC reviewed uvrto-iv-gifx glucose PG Care Time/CCT Total # of Minutes Spent Total Time Spent with Patient: Total time spent is greater than 50% in coordination of care (as documented) at patient's floor/unit and/or counseling patient: Coding Level of Care Code 37256 SUB INP/OBS CARE 2/35MIN Diagnoses Encephalopathy G93.40 Atrial fibrillation I48.91 Ambulatory dysfunction R26.2 Polyneuropathy G62.9 Sleep apnea G47.30
[2023-02-16] MEDS: PREGABALIN 150 MG CAP PO SCH (20:23)
[2023-02-16] MEDS: DULoxetine HCL 60 MG CAP PO SCH (20:23)
[2023-02-17] MEDS: ceFAZolin 2000MG 2,000 MG/15 ML SYR IV SCH ×3 (05:54→21:02)
[2023-02-17] MEDS: LEVOTHYROXINE SODIUM 150 MCG TABLET PO SCH (05:55)
[2023-02-17] MEDS: ACETAMINOPHEN 500 MG TAB PO PRN ×3 (06:31→20:44)
[2023-02-17] MEDS: hydrALAZINE HCL 25 MG TAB PO SCH ×3 (08:44→20:46)
[2023-02-17] MEDS: amLODIPine BESYLATE 5 MG TAB PO SCH ×2 (08:44→20:45)
[2023-02-17] MEDS: FUROSEMIDE 20 MG TAB PO SCH (08:45)
[2023-02-17] MEDS: METOPROLOL TARTRATE 25 MG TAB PO SCH ×2 (08:45→20:46)
[2023-02-17] MEDS: RIVAROXABAN 15 MG TAB PO SCH (08:46)
[2023-02-17] MEDS: THIAMINE HCL 50 MG TABLET PO SCH (08:46)
[2023-02-17] MEDS: PANTOprazole 40 MG TAB PO SCH (08:46)
[2023-02-17] MEDS: INSULIN ASPART PER UNIT CHARGE SC SCH ×4 (08:49→20:56)
[2023-02-17] MEDS: PREGABALIN 75 MG CAP PO SCH ×2 (08:49→13:06)
--- NOTE | 2023-02-17 09:16 | Surgery Consultation ---
Date of Consultation February 17, 2023 Assessment & Plan (1) Draining cutaneous sinus tract: This is a 77yF with a PMH of CKD, DM2, HTN, afib on xarelto, obesity who presented to the [facility] on 02/09/23 with frequent falls and weakness. She was admitted to the medicine service for further workup and evaluation. On blood work patient was noted to have elevated WBC# and on exam patient was found to have an area of redness on her abdomen with an open wound draining fluid. An US was obtained on 02/12 that revealed a small tract of complex fluid within the infraumbilical subcutaneous soft tissues which appears to connect to the skin surface, which also appears to connect to what appears to be an abdominal wall mesh from prior hernia repair. 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 Morton. Recommendations were to continue to address with local wound care in addition to a course of antibiotics. Infectious disease also weighed in around this time and were concerned for mesh infection and recommended possible mesh removal vs life long abx if surgery was unable to be entertained. -Patient's WBC has downtrended to normal while on course of abx. Labs today are pending, but yesterday WBC 8, Hbg 11.7. Patient is afebrile, HRs 60-80s. On exam patient's abdomen is soft with a noted small open wound in the LLQ abdomen draining small amounts of green fluid, there is no surrounding erythema, and minimal pain to palpation. You can delineate the borders of underlying mesh. Upon further evaluation of the wound there was suspicion this could be presenting as a suture granuloma. Dr. Morton was able to use a maliha hook to locate a prolene suture and remove it. The patient tolerated this well. Afterwards the wound was redressed with dry gauze and tape. The wound was no longer draining the green fluid to obtain for any culture. We will recheck later today so see if the drainage has slowed down. Would continue course of abx for now. Hopefully this was the cause of her symptoms and can avoid mesh removal in this patient. Patient was seen/examined with Dr. Morton. Supervising Physician Co-Signing Physician Notes Per Eneida Dotson physician energy assistant Patient had laparoscopic incisional hernia repair in 2010 and 2012 and had no problem until the present situation where according to the patient there was a small area like a pimple that started draining some fluid cultures were taken (unsure where the cultures were if it was specifically of the fluid or around the wound) MRSA positive and started on antibiotics infectious disease recommended the mesh removal or a long course of antibiotic With the situation as the patient described clean the area where a small draining opening was easily appreciated the fluid was greenish in color did not have the typical Pseudomonas odor Given the story of how this developed in the small tract that had developed prior to involving in the more abdominal wall cellulitis I was suspicious of the suture granuloma therefore using a maliha hook with the patient permission was able to extract a Prolene suture intact with a knot further probing of the tract did not reveal any sutures but of interest there was no further drainage At this point a dry dressing was applied and changes as needed Patient may wash over the area and reapply dressing Will discuss with the primary service I feel the patient could probably be discharged on p.o. antibiotics to cover for MRSA (I am not sure if this is accurate sample of the drainage) and I would see the patient back in the office in 1 week If indeed this was a suture granuloma that was causing the problem and the drainage and the fistulous tract should heal History of Present Illness Attending Physician: Richard Cox MD History of Present Illness This is a 77yF with a PMH of CKD, DM2, HTN, afib on xarelto, obesity who presented to the [facility] on 02/09/23 with frequent falls and weakness. She was admitted to the medicine service for further workup and evaluation. On blood w ork patient was noted to have elevated WBC# and on exam patient was found to have an area of redness on her abdomen with an open wound draining fluid. An US was obtained on 02/12 that revealed a small tract of complex fluid within the infraumbilical subcutaneous soft tissues which appears to connect to the skin surface, which also appears to connect to what appears to be an abdominal wall mesh from prior hernia repair. 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 Morton. Recommendations were to continue to address with local wound care in addition to a course of antibiotics. Infectious disease also weighed in around this time and were concerned for mesh infection and recommended possible mesh removal vs life long abx if surgery was unable to be entertained. Given she is a prior patient of Dr. Morton's he was kind enough to see her today. The patient denies any fevers/chills. She is unable to explain when she noticed this wound, but says it started out like a pimple and then it opened up and started draining. She is unable to describe the character of the drainage. Allergies Allergy/AdvReac Type Severity Reaction Status Date / Time Aminoglycosides Allergy Intermediate rash Verified 02/09/23 15:04 neomycin Allergy Intermediate RASH Verified 02/09/23 15:04 nickel Allergy Intermediate rash Verified 02/09/23 15:04 piroxicam Allergy Intermediate RASH Verified 02/09/23 15:04 polymyxin B Allergy Intermediate rash Verified 02/09/23 15:04 house dust Allergy Mild Sneezing Verified 02/09/23 15:04 oxycodone [From Roxicodone] AdvReac Mild Shakiness Verified 02/09/23 15:04 Vxyugpt-UUH-FhV Reductase AdvReac Mild MUSCLE AND Verified 02/09/23 15:04 Inhibitor JOINT PAIN [Fsiuusi-Jwz-Alt Reductase Inhibitor] Home Medications Medication Instructions Recorded Confirmed Type albuterol sulfate 90 mcg/actuation 1 - 2 puffs inhalation Q4H PRN 06/15/19 02/09/23 Rx aerosol inhaler shortness of breath or wheezing #8.5 grams fluticasone propionate 50 1 spray intranasal DAILY PRN 06/05/20 02/09/23 History mcg/actuation nasal allergy symptoms spray,suspension (Flonase Allergy Relief) acetaminophen 500 mg tablet 1,000 mg PO Q8 PRN fever or pain 09/25/20 02/09/23 Rx #30 tabs thiamine HCl (vitamin B1) 50 mg 50 mg PO QAM #30 tabs 09/25/20 02/09/23 Rx tablet (Vitamin B-1) cinacalcet 30 mg tablet (Sensipar) 30 mg PO DAILY #90 tabs 10/28/20 02/09/23 Rx ipratropium 20 mcg-albuterol 100 1 puff inhalation Q4H PRN 10/28/20 02/09/23 Rx mcg/actuation mist for inhalation shortness of breath or wheezing #4 (Combivent Respimat) grams amlodipine 5 mg tablet 5 mg PO PM #90 tabs 11/02/21 08/01/23 Rx ibuprofen 600 mg tablet 600 mg PO TID PRN Pain 05/28/21 02/09/23 History furosemide 20 mg tablet 20 mg PO DAILY 09/15/21 02/09/23 History fluticasone propionate 110 1 puff inhalation BID PRN Wheezing 02/26/22 02/09/23 History mcg/actuation HFA aerosol inhaler (Flovent HFA) fenofibrate nanocrystallized 145 145 mg PO DAILY #90 tabs 05/26/22 02/09/23 Rx mg tablet hydralazine 25 mg tablet 25 mg PO TID #270 tabs 07/07/22 02/09/23 Rx rabeprazole 20 mg tablet,delayed 20 mg PO DAILY #30 tabs 07/20/22 02/09/23 Rx release (AcipHex) rivaroxaban 15 mg tablet 15 mg PO DAILY #30 tabs 07/20/22 02/09/23 Rx duloxetine 60 mg capsule,delayed 60 mg PO HS #90 caps 08/05/22 02/09/23 Rx release alpha lipoic acid 100 mg capsule 300 mg PO BID 08/17/22 02/09/23 History pen needle, diabetic 32 gauge x #100 ea 09/20/22 02/09/23 Rx 5/32" (BD Ultra-Fine Shanel Pen Needle) amlodipine 2.5 mg tablet 2.5 mg PO QAM 10/26/22 02/09/23 History ondansetron 4 mg disintegrating 4 mg PO Q8H PRN nausea and 12/11/22 02/09/23 Rx tablet vomiting #30 tabs pregabalin 75 mg capsule (Lyrica) 75 mg PO .COMPLEX #120 caps 12/24/22 02/09/23 Rx levothyroxine 150 mcg tablet 150 mcg PO DAILYBB #90 tabs 01/04/23 02/09/23 Rx insulin glargine 100 unit/mL (3 6 unit (0.06 mL) subcut HS 30 days 02/05/23 02/09/23 Rx mL) subcutaneous pen (Lantus #3 mL Solostar U-100 Insulin) chlorzoxazone 500 mg tablet 500 mg PO TID 02/09/23 02/09/23 History hydroxyzine HCl 25 mg tablet 50 mg PO HS PRN itching 02/09/23 02/09/23 History losartan 100 mg tablet 100 mg PO DAILY 02/09/23 02/09/23 History metoprolol tartrate 25 mg tablet 25 mg PO BID 02/09/23 02/09/23 History trazodone 50 mg tablet 50 mg PO HS 02/09/23 02/09/23 History triamcinolone acetonide 0.1 % 1 applic topical BID PRN .flare ups 02/09/23 02/09/23 History topical ointment Patient History Medical History Acquired claw toe of left foot Acquired claw toe of right foot Acquired hallux valgus of right foot Allergic rhinitis Atrial fibrillation Atrial fibrillation with slow ventricular response Callus Chest pain Chronic back pain CKD (chronic kidney disease), stage III Controlled type 2 diabetes mellitus with neurologic complication, with long-term current use of insulin Degenerative disc disease Diabetic peripheral neuropathy Dysesthesia Dysphagia Fall Familial tremor GERD (gastroesophageal reflux disease) GERD (gastroesophageal reflux disease) Graves disease WITH RADIOACTIVE IODINE Hallux valgus (acquired), left foot Hypercalcemia Hyperlipidemia Hyperparathyroidism Hypertension Hypothyroidism Insomnia Loss of protective sensation of skin of deformed foot Microalbuminuria Morbid obesity Osteoarthritis Primary hyperparathyroidism Seborrheic keratosis Septicemia TREATED AT [facility] (BEGINNING OF 2017) AFFECTED RIGHT LEG. Sinus bradycardia Sleep apnea CPAP Toxic encephalopathy Type 2 diabetes mellitus with diabetic peripheral angiopathy without gangrene Surgical History Fusion of spine X3 L1-L5 History of adenoidectomy History of appendectomy LAP History of bilateral tubal ligation History of cataract surgery BILATERAL History of cholecystectomy LAP History of colonoscopy History of esophagogastroduodenoscopy (EGD) History of herniorrhaphy UMBILICAL REPAIR x 2 History of tonsillectomy History of total hip arthroplasty BILATERAL History of total knee replacement BILATERAL History of total shoulder replacement RIGHT Nausea and vomiting after administration of anesthetic agent Family History Father Family history of diabetes mellitus Arthritis Hypertension Stroke Lung disease Obesity Diabetes Mother Arthritis Diabetes Hypertension Stroke Obesity Depression Brother Depression Suicide Aunt Uterine cancer Grandfather (Maternal) Colorectal cancer Aunt Colorectal cancer Denies family history of Prostate cancer Myocardial infarction Breast cancer Social History Smoking Status: Never smoker Second Hand Exposure: No; Do You Dip or Chew Tobacco: No; Hx Alcohol Use: No Hx Substance Use: No Preferred Language: American Communication Ability: Impaired Visual Impairment: Limited Hearing Ability: Normal Shut Off Worker Required: No Beliefs That Will Affect Care: None marital status: Current Living Situation: Spouse current occupational status: retired Feels Safe at Home: Yes Childhood Exposure to Second-Hand Smoke: Yes Diet: diabetic and regular Dental Care, Regularly: Yes Physical Activity Frequency: 3-4 Times per Week Seatbelt Use: always Sunscreen Use: Yes Assistive Devices: Walker Review of Systems Constitutional: + fatigue; no fever and no chills Gastrointestinal: no abdominal pain, no nausea and no vomiting draining wound in abdomen Physical Exam Physical Exam: awake, no distress Respiratory: on supplemental O2 Gastrointestinal (Abdomen): Inspection/Auscultation: abdomen not distended Percussion/Palpation: abdomen soft small open wound in the LLQ abdomen draining a green fluid, no surrounding erythema, minimal pain to palpation. can delineate the borders of underlying mesh Results & Data Vital Signs (Past 12 Hours) Vital Signs Temp Pulse Resp BP Pulse Ox O2 Del Method O2 Flow Rate 02/17/23 07:50 36.3 C L 68 18 151/89 H 97 Nasal Cannula 3 Diagnostic Findings US softtissue abdwall/lwr back CLINICAL HISTORY: abdominal wall near umbilicus COMPARISON STUDY: None. FINDINGS: Real-time sonographic imaging of the periumbilical location was performed with maintenance representative images submitted. At the patient's area of interest there is a small tract of complex fluid within the infraumbilical subcutaneous soft tissues which appears to connect to the skin surface. There is a heterogeneous shadowing area within the abdominal wall which favors mesh repair of a prior hernia. This small fluid tract abuts the suspected mesh. No evidence for recurrent hernia or masses. IMPRESSION: At the patient's area of interest there is a small tract of complex fluid within the infraumbilical subcutaneous soft tissues which appears to connect to the skin surface. This small tract of fluid also appears to connect to what appears to be an abdominal wall mesh from prior hernia repair. ACT 112: Negative or not required by law. Electronically signed by: Librado Mena M.D. 02/12/2023 5:08 PM PG Care Time/CCT Total # of Minutes Spent Total Time Spent with Patient: Total time spent is greater than 50% in coordination of care (as documented) at patient's floor/unit and/or counseling patient: Coding Level of Care Code 07059 INT INP/OBS CARE 1/40MIN Diagnoses Draining cutaneous sinus tract L98.8
[2023-02-17] MEDS: FENOFIBRATE NANOCRYSTALLIZED 145 MG TABLET PO SCH (12:29)
[2023-02-17] MEDS: CINACALCET HCL 30 MG TAB PO SCH (13:06)
[2023-02-17] MEDS: LOSARTAN POTASSIUM 50 MG TAB PO SCH (13:07)
--- NOTE | 2023-02-17 13:40 | Hospitalist Progress Note ---
Date of Service February 17, 2023 Assessment & Plan (1) Encephalopathy: Plan: Patient with worsening confusion and encephalopathy which may be toxic encephalopathy as she is on muscle relaxants which also may be metabolic encephalopathy from panniculitis had previous umbilical hernia repair site. stitch removed from wound with now presumption this was stitch granuloma, opened skin and secondarily infected from staph, surgery will follow as outpt and will recommend antibitotics With regard to toxic encephalopathy improved as medications were held, lyrica dose reduced CT scan was obtained and was unremarkable for any acute changes in her head has Leukocytosis secondary panniculitis with fluid collection, leukocytosis has improved greatly ID consult on 02/15, recommends removal of mesh or life long antibiotics, change to cephalexin 2 gms iv q8 could eventually transition to oral Keflex. Patient will likely be in a rehab situation postdischarge which can be continued with close oversight to her wound by Dr Morton, given sensitivities will change to po Doxycycline (2) Atrial fibrillation: Plan: Chronic atrial fibrillation Xarelto for anticoagulation Continues to be rate controlled with metoprolol H/o chronic diastolic heart failure, stable typically sees Dr Lopez (3) Ambulatory dysfunction: Plan: Likely her issues are Multifactorial with morbid obesity, spinal stenosis, diabetic peripheral neuropathy as well as acute metabolic encephalopathy CT head negative TSH (recently performed in October and ) Spinal stenosis with fall no pain at this time PT/OT, consider placement for inpatient rehab (4) Polyneuropathy: Plan: Patient not complaining of any pain we will hold medications at this time that could be clouding her mental sensorium (5) Sleep apnea: Plan: CPAP HS Plan VTE Prophylaxis - Xarelto Patient made full admission due to metabolic encephalopathy secondary to panniculitis Admission and Anticipated Discharge Date Admission Date: February 11, 2023 Subjective Patient is in good spirits today. I personally spoke to Dr Morton who informed me he removed a suture from her wound and suspected that this was a suture granuloma that had become secondarily infected, I discussed this with Ms. Tolliver and she seems satisfied with the plan to continue po antibiotics Physical Exam Physical Exam: She is awake and alert she is not completely back to her baseline as far as I remember. Her cardiac exam is regular her lungs are clear her abdomen is with normal bowel sounds there is a 0.5 cm opening at the scar from her umbilical hernia repair continues with midline induration but resolved erythema Results & Data Results & Data Vital Signs (Past 12 Hours) Vital Signs Temp Pulse Pulse Resp BP Pulse Ox O2 Del Method 02/17/23 13:00 77 130/85 02/17/23 09:00 Nasal Cannula 02/17/23 07:50 97.3 F L 68 18 151/89 H 97 Nasal Cannula O2 Flow Rate 02/17/23 13:00 02/17/23 09:00 3 02/17/23 07:50 3 PG Care Time/CCT Total # of Minutes Spent Total Time Spent with Patient: Total time spent is greater than 50% in coordination of care (as documented) at patient's floor/unit and/or counseling patient: Coding Level of Care Code 93687 SUB INP/OBS CARE 2/35MIN Diagnoses Encephalopathy G93.40 Atrial fibrillation I48.91 Ambulatory dysfunction R26.2 Polyneuropathy G62.9 Sleep apnea G47.30
--- NOTE | 2023-02-17 14:23 | Infectious Disease Progress Nt ---
Date of Service February 17, 2023 Assessment & Plan (1) Infected hernioplasty mesh: Plan Micro: 02/12 Abd wound cx: MSSA (S tetra, TMP/SMX) 02/11 UCx: NG 02/09 BCx x2: NG Antibiotics: Cefazolin 02/15 - present Vanc 02/12 - 02/15 Pip-tazo 02/13 - 02/15 Ceftriaxone 02/12 Problems: #C/f hernia mesh infection with MSSA #Aminoglycoside allergy: rash 77 yo F with history of afib, CKD, DM2, HTN, HLD, TIERRA, morbid obesity, umbilical hernia repair x 2 who presented on 02/09/23 with frequent falls, generalized weakness, confusion, found to have c/f mesh infection. Her reported that pt has a long history of falls, progressively worsening over years, and that she had fallen twice in the last 12 hours. Pt reported her legs felt weak, and she denied loss of consciousness. He felt she was not safe at home and requested inpatient rehabilitation. He also felt she was more confused the day prior to presentation. On presentation, pt was afebrile, hypertensive. Labs showed WBC 15.75, ESR 59, CRP 17.3, procalcitonin 0.19. CXR negative. CT head without acute findings. UCx negative. During admission, pt has had moments of confusion. Had T 37.9 on 02/11/23, and T 37.8 on 02/13/23. She was noted to have a chronic draining wound on her abdomen above a previously repaired ventral hernia with mesh. An ultrasound of the area showed a small tract of complex fluid within the infraumbilical subcutaneous soft tissues which appears to connect to the skin surface, and a small fluid tract which appears to connect to what appears to be an abdominal wall mesh from prior hernia repair. Pt was started on antibiotics, wound culture grew MSSA. Dr. Morton of surgery evaluated the pt on 02/17 and was suspicious for suture granuloma. A prolene suture was removed. Surgery feels pt can be discharged on PO antibiotics and will see the pt in the office in 1 week. Recommendations: -On discharge, can transition to doxycycline 100 mg p.o. twice daily (or alternatively cefadroxil 500 mg p.o. twice daily) to complete a 14-day course through 02/25. -Close monitoring for persistent infection/fistulous tract to hernia mesh, in which case ideally patient would undergo debridement/mesh removal. If surgery is not possible to remove infected mesh, then pt will need lifelong oral antibiotics. Will sign off. Please page [facility] with further questions. Admission and Anticipated Discharge Date Admission Date: February 11, 2023 Subjective This patient recommendation is based on a telemedicine consult request which was completed asynchronously through chart review and information provided by the primary physician. The patient was not seen or examined today. The evaluation is consultative in nature and all patient care and treatment decisions can either be accepted or rejected by the patient's primary hospital-based treating physician using their own independent medical judgment for their patient. Time Spent Reviewing Chart: 11 - 20 minutes Evaluated by surgery today Review of System Patient not seen Physical Exam Physical Exam: Patient not seen Results & Data Vital Signs (Past 12 Hours) Vital Signs Temp Pulse Pulse Resp BP Pulse Ox O2 Del Method 02/17/23 13:00 77 130/85 02/17/23 09:00 Nasal Cannula 02/17/23 07:50 36.3 C L 68 18 151/89 H 97 Nasal Cannula O2 Flow Rate 02/17/23 13:00 02/17/23 09:00 3 02/17/23 07:50 3 Medications Administered Current Inpatient Medications Acetaminophen (Acetaminophen 500 Mg Tab) 1,000 mg PO Q8H PRN PRN Reason: pain/fever Stop: 03/13/23 15:22 Last Admin: 02/17/23 13:06 Dose: 1,000 mg Albuterol (Albuterol Hfa 8 Gm Inhaler) 90 puffs INH Q4H PRN PRN Reason: Shortness Of Breath Or Wheezing Stop: 03/11/23 19:59 Amlodipine Besylate (Amlodipine Besylate 5 Mg Tab) 2.5 mg PO QAM [facility] Stop: 03/12/23 08:59 Last Admin: 02/17/23 08:44 Dose: 2.5 mg Amlodipine Besylate (Amlodipine Besylate 5 Mg Tab) 5 mg PO PM [facility] Stop: 03/11/23 20:59 Last Admin: 02/16/23 20:24 Dose: 5 mg Cinacalcet (Cinacalcet Hcl 30 Mg Tab) 30 mg PO DAILY@1400 [facility] Stop: 03/12/23 13:59 Last Admin: 02/17/23 13:06 Dose: 30 mg Dextrose (Dextrose 50% 50 Ml Syringe) 25 - 50 ml IV UD PRN; Protocol PRN Reason: Hypoglycemia Protocol Stop: 03/11/23 16:52 Doxycycline Hyclate (Doxycycline Hyclate 100 Mg Cap) 100 mg PO BID [facility] Stop: 02/25/23 08:59 Duloxetine HCl (Duloxetine Hcl 60 Mg Cap) 60 mg PO HS [facility] Stop: 03/11/23 20:59 Last Admin: 02/16/23 20:23 Dose: 60 mg Fenofibrate (Fenofibrate Nanocrystallized 145 Mg Tablet) 145 mg PO DAILY@1200 [facility] Stop: 03/12/23 11:59 Last Admin: 02/17/23 12:29 Dose: 145 mg Furosemide (Furosemide 20 Mg Tab) 20 mg PO DAILY [facility] Stop: 03/12/23 08:59 Last Admin: 02/17/23 08:45 Dose: 20 mg Glucagon (Glucagon For Inj 1 Mg Vial) 1 mg SQ UD PRN; Protocol PRN Reason: Hypoglycemia Protocol Stop: 03/11/23 16:52 Glucose (Glucose 10 Tab/Tube) 4 - 8 tab PO UD PRN; Protocol PRN Reason: Hypoglycemia Treatment Stop: 03/11/23 16:52 Glucose (Glucose 40% Gel 15 Gm Tube) 15 - 30 gm PO UD PRN; Protocol PRN Reason: Hypoglycemia Protocol Stop: 03/11/23 16:52 Hydralazine HCl (Hydralazine Hcl 25 Mg Tab) 25 mg PO TID [facility] Stop: 03/11/23 20:59 Last Admin: 02/17/23 13:07 Dose: 25 mg Cefazolin Sodium (Ancef 2000mg) 2,000 mg in 15 mls @ 3.75 mls/min IV Q8H [facility] Stop: 02/18/23 05:00 Last Admin: 02/17/23 05:54 Dose: 3.75 mls/min Insulin Aspart (Insulin Aspart Per Unit Charge) 0 units SC ACHS [facility] Stop: 03/11/23 16:52 Last Admin: 02/17/23 12:02 Dose: Not Given Levothyroxine Sodium (Levothyroxine Sodium 150 Mcg Tablet) 150 mcg PO DAILYBB [facility] Stop: 03/12/23 06:29 Last Admin: 02/17/23 05:55 Dose: 150 mcg Losartan Potassium (Losartan Potassium 50 Mg Tab) 100 mg PO DAILY@1400 [facility] Stop: 03/12/23 13:59 Last Admin: 02/17/23 13:07 Dose: 100 mg Metoprolol Tartrate (Metoprolol Tartrate 25 Mg Tab) 25 mg PO BID [facility] Stop: 03/11/23 20:59 Last Admin: 02/17/23 08:45 Dose: 25 mg Miscellaneous (Carbohydrates For Hypoglycemia ) 15 - 30 gm PO UD PRN PRN Reason: Hypoglycemia Protocol Stop: 03/11/23 16:52 Pantoprazole Sodium (Pantoprazole 40 Mg Tab) 40 mg PO DAILY [facility] Stop: 03/12/23 08:59 Last Admin: 02/17/23 08:46 Dose: 40 mg Pregabalin (Pregabalin 75 Mg Cap) 75 mg PO DAILY@0800,1400 [facility] Stop: 03/16/23 13:59 Last Admin: 02/17/23 13:06 Dose: 75 mg Pregabalin (Pregabalin 150 Mg Cap) 150 mg PO HS [facility] Stop: 03/16/23 20:59 Last Admin: 02/16/23 20:23 Dose: 150 mg Rivaroxaban (Rivaroxaban 15 Mg Tab) 15 mg PO DAILY [facility] Stop: 03/12/23 08:59 Last Admin: 02/17/23 08:46 Dose: 15 mg Thiamine HCl (Thiamine Hcl 50 Mg Tablet) 50 mg PO QAM [facility] Stop: 03/12/23 08:59 Last Admin: 02/17/23 08:46 Dose: 50 mg Tramadol HCl (Tramadol Hcl 50 Mg Tablet) 50 mg PO Q6H PRN PRN Reason: Pain Stop: 03/13/23 15:22 Last Admin: 02/11/23 16:08 Dose: 50 mg
[2023-02-17] MEDS: traMADol HCL 50 MG TABLET PO PRN (16:13)
[2023-02-17] MEDS: PREGABALIN 150 MG CAP PO SCH (20:57)
[2023-02-17] MEDS: DULoxetine HCL 60 MG CAP PO SCH (20:57)
[2023-02-18] MEDS: traMADol HCL 50 MG TABLET PO PRN (04:22)
[2023-02-18] MEDS: ACETAMINOPHEN 500 MG TAB PO PRN ×3 (05:38→21:46)
[2023-02-18] MEDS: LEVOTHYROXINE SODIUM 150 MCG TABLET PO SCH (05:39)
--- NOTE | 2023-02-18 06:38 | Surgery Progress Note ---
Date of Service February 18, 2023 Assessment & Plan (1) Draining cutaneous sinus tract: Plan: Patient to apply dry dressing change as needed around the umbilical area She may shower wash over it and reapply dressing Patient is slated to go to rehab Discussed with the patient I would like to see her in the office in approximately a week or so All question answered Admission and Anticipated Discharge Date Admission Date: February 11, 2023 Subjective No new issues denies any abdominal discomfort Physical Exam Physical Exam: The abdomen is completely benign The 4 x 4 dressing that we put on yesterday after extracting a Prolene suture has small stain of dried blood the previous opening has a scab over it there is no been no drainage no discomfort around the area the previously had been inflamed Results & Data Vital Signs (Past 12 Hours) Vital Signs Temp Pulse Resp BP Pulse Ox O2 Del Method O2 Flow Rate 02/17/23 20:00 CPAP 02/17/23 20:39 36 C L 87 16 138/77 98 Nasal Cannula 3.0
[2023-02-18] MEDS: FUROSEMIDE 20 MG TAB PO SCH (08:36)
[2023-02-18] MEDS: METOPROLOL TARTRATE 25 MG TAB PO SCH ×2 (08:36→20:38)
[2023-02-18] MEDS: amLODIPine BESYLATE 5 MG TAB PO SCH ×2 (08:36→20:38)
[2023-02-18] MEDS: PANTOprazole 40 MG TAB PO SCH (08:36)
[2023-02-18] MEDS: PREGABALIN 75 MG CAP PO SCH ×2 (08:37→13:43)
[2023-02-18] MEDS: THIAMINE HCL 50 MG TABLET PO SCH (08:37)
[2023-02-18] MEDS: INSULIN ASPART PER UNIT CHARGE SC SCH ×4 (08:37→20:39)
[2023-02-18] MEDS: RIVAROXABAN 15 MG TAB PO SCH (08:37)
[2023-02-18] MEDS: hydrALAZINE HCL 25 MG TAB PO SCH ×3 (08:37→20:38)
[2023-02-18] MEDS: DOXYCYCLINE HYCLATE 100 MG CAP PO SCH ×2 (08:37→20:38)
[2023-02-18] MEDS: guaiFENesin 600 MG TABCR PO SCH ×2 (09:43→20:38)
[2023-02-18] MEDS: FENOFIBRATE NANOCRYSTALLIZED 145 MG TABLET PO SCH (12:02)
[2023-02-18] MEDS: LOSARTAN POTASSIUM 50 MG TAB PO SCH (13:42)
[2023-02-18] MEDS: CINACALCET HCL 30 MG TAB PO SCH (13:42)
[2023-02-18] MEDS: DULoxetine HCL 60 MG CAP PO SCH (20:38)
[2023-02-18] MEDS: PREGABALIN 150 MG CAP PO SCH (20:38)
--- NOTE | 2023-02-18 22:42 | Hospitalist Progress Note ---
Date of Service February 18, 2023 Assessment & Plan (1) Encephalopathy: Plan: Patient with worsening confusion and encephalopathy which may be toxic encephalopathy as she is on muscle relaxants which also may be metabolic encephalopathy from panniculitis had previous umbilical hernia repair site. stitch removed from wound with now presumption this was stitch granuloma, opened skin and secondarily infected from staph, surgery will follow as outpt and will recommend antibitotics With regard to toxic encephalopathy improved as medications were held, lyrica dose reduced CT scan was obtained and was unremarkable for any acute changes in her head has Leukocytosis secondary panniculitis with fluid collection, leukocytosis has improved greatly ID consult on 02/15, recommends removal of mesh or life long antibiotics, change to cephalexin 2 gms iv q8 could eventually transition to oral Keflex. Patient will likely be in a rehab situation postdischarge which can be continued with close oversight to her wound by Dr Morton, given sensitivities will venita nge to po Doxycycline Currently awaiting placement. Appears patient will be on life long antibiotics. (2) Atrial fibrillation: Plan: Chronic atrial fibrillation Xarelto for anticoagulation Continues to be rate controlled with metoprolol H/o chronic diastolic heart failure, stable typically sees Dr Lopez (3) Ambulatory dysfunction: Plan: Likely her issues are Multifactorial with morbid obesity, spinal stenosis, diabetic peripheral neuropathy as well as acute metabolic encephalopathy CT head negative TSH (recently performed in October and WNL) Spinal stenosis with fall no pain at this time PT/OT, consider placement for inpatient rehab (4) Polyneuropathy: Plan: Patient not complaining of any pain we will hold medications at this time that could be clouding her mental sensorium (5) Sleep apnea: Plan: CPAP HS Plan VTE Prophylaxis - Xarelto Patient made full admission due to metabolic encephalopathy secondary to panniculitis Admission and Anticipated Discharge Date Admission Date: February 11, 2023 Subjective 77 yo female reports no new symptoms. Review of Systems Review of Systems: All systems reviewed & are unremarkable except as noted in HPI & below Physical Exam Physical Exam: Constitutional: well developed no acute distress Eyes: PERRL, conjunctivae normal, anicteric sclerae ENMT: external ear and nose normal, oropharynx normal Neck: + short neck and + thick neck Respiratory: normal respiratory effort, lungs clear to auscultation Cardiovascular: Rate/Rhythm: regular rate and + irregularly irregular Heart Sounds: no murmur Extremities: normal capillary refill and + pedal edema (1+ ankles b/l equal); no calf tenderness Gastrointestinal (Abdomen): Normal bowel sounds, soft, nontender, no hepatosplenomegaly Neurologic: moves all extremities and awake; no focal motor deficits and not confused Motor/Sensory: + sensory deficit (numbness in bilateral feet); no tremor and no pronator drift Cranial Nerves: EOM intact bilaterally, normal facial strength, tongue midline, able to rotate head bilaterally, able to elevate shoulders bilaterally, no nystagmus and symmetric palate elevation Coordination: normal [id number] test Psychiatric: A+Ox3, euthymic affect Genitourinary: no CVA tenderness Results & Data Results & Data Vital Signs (Past 12 Hours) Vital Signs Temp Pulse Resp BP BP Pulse Ox O2 Del Method 02/18/23 20:02 36.6 C 61 16 160/83 H 98 Nasal Cannula 02/18/23 15:40 36.4 C L 64 17 142/89 H 98 Nasal Cannula O2 Flow Rate 02/18/23 20:02 3 02/18/23 15:40 3 PG Care Time/CCT Total # of Minutes Spent Total Time Spent with Patient: Total time spent is greater than 50% in coordination of care (as documented) at patient's floor/unit and/or counseling patient: Coding Level of Care Code 41994 SUB INP/OBS CARE 2/35MIN Diagnoses Encephalopathy G93.40 Atrial fibrillation I48.91 Ambulatory dysfunction R26.2 Polyneuropathy G62.9 Sleep apnea G47.30
[2023-02-19] MEDS: ACETAMINOPHEN 500 MG TAB PO PRN ×3 (02:01→20:31)
[2023-02-19] MEDS: LEVOTHYROXINE SODIUM 150 MCG TABLET PO SCH (06:24)
--- NOTE | 2023-02-19 07:05 | Surgery Progress Note ---
Date of Service February 19, 2023 Assessment & Plan (1) Draining cutaneous sinus tract: Plan: Awaiting placement for rehab Instructed patient to see in our office in approximately 1 week May wash over the previous drainage area reapply dressing as needed Admission and Anticipated Discharge Date Admission Date: February 11, 2023 Subjective No abdominal complaints states no drainage from the periumbilical area since sutures been removed Physical Exam Physical Exam: Abdomen benign No cellulitis or tenderness around the previous drainage site Small scab remains over the previous drainage site Results & Data Vital Signs (Past 12 Hours) Vital Signs Temp Pulse Resp BP Pulse Ox O2 Del Method O2 Flow Rate 02/18/23 20:45 Nasal Cannula 3 02/18/23 20:02 36.6 C 61 16 160/83 H 98 Nasal Cannula 3
[2023-02-19 07:07] LABS: Hematocrit (blood only) 39.5 % (37.0-47.0); Hemoglobin 12.7 g/dl (12.0-16.0); Mean Corpuscular Hemoglobin 27.6 pg (25.0-34.0); Mean Corpuscular Hgb Conc 32.2 g/dL (32.0-36.0); Mean Corpuscular Volume 85.9 fL (80.0-100.0); Mean Platelet Volume 10.2 fL (9.4-12.4); Platelet Count 511 K/uL (130-400); RDW Standard Deviation 43.1 fL (36.4-46.3); White Blood Count 10.29 K/ul (4.8-10.8)
[2023-02-19 07:17] LABS: BUN Creatinine Ratio 24.3 (10-20); C Reactive Protein 3.3 mg/dl (0-0.5); Calcium 10.4 mg/dl (8.6-10.3); Creatinine Clr Calc Pharmacy 56.1 ml/min; Est GFR (African American) 53.2 ml/min; Est GFR (Non-African American) 45.9 ml/min
[2023-02-19] MEDS: PREGABALIN 75 MG CAP PO SCH ×2 (08:12→14:00)
[2023-02-19] MEDS: METOPROLOL TARTRATE 25 MG TAB PO SCH ×2 (08:12→19:52)
[2023-02-19] MEDS: hydrALAZINE HCL 25 MG TAB PO SCH ×3 (08:13→19:51)
[2023-02-19] MEDS: guaiFENesin 600 MG TABCR PO SCH ×2 (08:13→19:52)
[2023-02-19] MEDS: RIVAROXABAN 15 MG TAB PO SCH (08:14)
[2023-02-19] MEDS: DOXYCYCLINE HYCLATE 100 MG CAP PO SCH ×2 (08:14→19:53)
[2023-02-19] MEDS: PANTOprazole 40 MG TAB PO SCH (08:15)
[2023-02-19] MEDS: FUROSEMIDE 20 MG TAB PO SCH (08:15)
[2023-02-19] MEDS: amLODIPine BESYLATE 5 MG TAB PO SCH ×2 (08:15→19:53)
[2023-02-19] MEDS: THIAMINE HCL 50 MG TABLET PO SCH (08:16)
[2023-02-19] MEDS: INSULIN ASPART PER UNIT CHARGE SC SCH ×4 (08:21→20:52)
[2023-02-19] MEDS: FENOFIBRATE NANOCRYSTALLIZED 145 MG TABLET PO SCH (11:53)
[2023-02-19] MEDS: LOSARTAN POTASSIUM 50 MG TAB PO SCH (13:55)
[2023-02-19] MEDS: CINACALCET HCL 30 MG TAB PO SCH (13:55)
[2023-02-19] MEDS: DULoxetine HCL 60 MG CAP PO SCH (19:53)
[2023-02-19] MEDS: PREGABALIN 150 MG CAP PO SCH (20:30)
--- NOTE | 2023-02-19 21:08 | Hospitalist Progress Note ---
Date of Service February 19, 2023 Assessment & Plan (1) Encephalopathy: Plan: Patient with worsening confusion and encephalopathy which may be toxic encephalopathy as she is on muscle relaxants which also may be metabolic encephalopathy from panniculitis had previous umbilical hernia repair site. stitch removed from wound with now presumption this was stitch granuloma, opened skin and secondarily infected from staph, surgery will follow as outpt and will recommend antibitotics With regard to toxic encephalopathy improved as medications were held, lyrica dose reduced CT scan was obtained and was unremarkable for any acute changes in her head has Leukocytosis secondary panniculitis with fluid collection, leukocytosis has improved greatly ID consult on 02/15, recommends removal of mesh or life long antibiotics, change to cephalexin 2 gms iv q8 could eventually transition to oral Keflex. Patient will likely be in a rehab situation postdischarge which can be continued with close oversight to her wound by Dr Morton, given sensitivities will venita nge to po Doxycycline Currently awaiting placement. Given that appeared to be a suture granuloma, will conintue antibiotics until 1 week followup with Gen surgery. (2) Atrial fibrillation: Plan: Chronic atrial fibrillation Xarelto for anticoagulation Continues to be rate controlled with metoprolol H/o chronic diastolic heart failure, stable typically sees Dr Lopez (3) Ambulatory dysfunction: Plan: Likely her issues are Multifactorial with morbid obesity, spinal stenosis, diabetic peripheral neuropathy as well as acute metabolic encephalopathy CT head negative TSH (recently performed in October and WN) Spinal stenosis with fall no pain at this time PT/OT, consider placement for inpatient rehab (4) Polyneuropathy: Plan: Patient not complaining of any pain we will hold medications at this time that could be clouding her mental sensorium (5) Sleep apnea: Plan: CPAP HS Plan VTE Prophylaxis - Xarelto Patient made full admission due to metabolic encephalopathy secondary to panniculitis Had [facility] appeal denied for rehab, patient will be working on placement for SNF. Admission and Anticipated Discharge Date Admission Date: February 11, 2023 Subjective Patient reports no new symptoms. Review of Systems Review of Systems: All systems reviewed & are unremarkable except as noted in HPI & below Physical Exam Physical Exam: Constitutional: well developed no acute distress Eyes: PERRL, conjunctivae normal, anicteric sclerae ENMT: external ear and nose normal, oropharynx normal Neck: + short neck and + thick neck Respiratory: normal respiratory effort, lungs clear to auscultation Cardiovascular: Rate/Rhythm: regular rate and + irregularly irregular Heart Sounds: no murmur Extremities: normal capillary refill and + pedal edema (1+ ankles b/l equal); no calf tenderness Gastrointestinal (Abdomen): Normal bowel sounds, soft, nontender, no hepatosplenomegaly Neurologic: moves all extremities and awake; no focal motor deficits and not confused Motor/Sensory: + sensory deficit (numbness in bilateral feet); no tremor and no pronator drift Cranial Nerves: EOM intact bilaterally, normal facial strength, tongue midline, able to rotate head bilaterally, able to elevate shoulders bilaterally, no nystagmus and symmetric palate elevation Coordination: normal [id number] test Psychiatric: A+Ox3, euthymic affect Genitourinary: no CVA tenderness Results & Data Results & Data Vital Signs (Past 12 Hours) Vital Signs Temp Pulse Resp BP Pulse Ox O2 Del Method O2 Flow Rate 02/19/23 19:50 36.6 C 70 16 151/77 H 98 Nasal Cannula 3 02/19/23 14:19 36.4 C L 70 16 133/83 97 Nasal Cannula 3 02/19/23 13:45 62 153/84 H 02/19/23 11:29 147/88 H PG Care Time/CCT Total # of Minutes Spent Total Time Spent with Patient: Total time spent is greater than 50% in coordination of care (as documented) at patient's floor/unit and/or counseling patient: Coding Level of Care Code 89015 SUB INP/OBS CARE 3/50MIN Diagnoses Encephalopathy G93.40 Atrial fibrillation I48.91 Ambulatory dysfunction R26.2 Polyneuropathy G62.9 Sleep apnea G47.30 Time Spent (min) 52
[2023-02-20] MEDS: LEVOTHYROXINE SODIUM 150 MCG TABLET PO SCH (05:31)
[2023-02-20 07:06] LABS: Hematocrit (blood only) 37.3 % (37.0-47.0); Hemoglobin 11.9 g/dl (12.0-16.0); Mean Corpuscular Hemoglobin 28.1 pg (25.0-34.0); Mean Corpuscular Hgb Conc 31.9 g/dL (32.0-36.0); Mean Platelet Volume 10.3 fL (9.4-12.4); Platelet Count 461 K/uL (130-400); RDW Coefficient of Variation 14.3 % (11.5-14.5); RDW Standard Deviation 45.1 fL (36.4-46.3); Red Blood Count 4.24 M/uL (4.20-5.40); White Blood Count 9.54 K/ul (4.8-10.8)
[2023-02-20] MEDS: ACETAMINOPHEN 500 MG TAB PO PRN ×3 (07:10→20:43)
[2023-02-20 07:25] LABS: BUN Creatinine Ratio 27.3 (10-20); Calcium 10.1 mg/dl (8.6-10.3); Creatinine Clr Calc Pharmacy 53.3 ml/min; Est GFR (Non-African American) 43.1 ml/min; Magnesium 1.7 mg/dl (1.7-2.4); Phosphorus 3.1 mg/dl (2.5-4.9); Potassium 4.2 mmol/L (3.5-5.1)
[2023-02-20] MEDS: INSULIN ASPART PER UNIT CHARGE SC SCH ×4 (09:10→21:43)
[2023-02-20] MEDS: PREGABALIN 75 MG CAP PO SCH ×3 (09:11→20:42)
[2023-02-20] MEDS: THIAMINE HCL 50 MG TABLET PO SCH (09:11)
[2023-02-20] MEDS: DOXYCYCLINE HYCLATE 100 MG CAP PO SCH ×2 (09:11→20:36)
[2023-02-20] MEDS: RIVAROXABAN 15 MG TAB PO SCH (09:11)
[2023-02-20] MEDS: amLODIPine BESYLATE 5 MG TAB PO SCH ×2 (09:12→20:37)
[2023-02-20] MEDS: PANTOprazole 40 MG TAB PO SCH (09:12)
[2023-02-20] MEDS: guaiFENesin 600 MG TABCR PO SCH ×2 (09:13→20:36)
[2023-02-20] MEDS: FUROSEMIDE 20 MG TAB PO SCH (09:13)
[2023-02-20] MEDS: METOPROLOL TARTRATE 25 MG TAB PO SCH ×2 (09:13→20:36)
[2023-02-20] MEDS: hydrALAZINE HCL 25 MG TAB PO SCH ×3 (09:14→20:36)
[2023-02-20] MEDS: FENOFIBRATE NANOCRYSTALLIZED 145 MG TABLET PO SCH (12:07)
[2023-02-20] MEDS: LOSARTAN POTASSIUM 50 MG TAB PO SCH (14:14)
[2023-02-20] MEDS: CINACALCET HCL 30 MG TAB PO SCH (14:14)
[2023-02-20] MEDS: DULoxetine HCL 60 MG CAP PO SCH (20:36)
[2023-02-20] MEDS: PREGABALIN 150 MG CAP PO SCH (21:43)
--- NOTE | 2023-02-20 22:34 | Hospitalist Progress Note ---
Date of Service February 20, 2023 Assessment & Plan (1) Encephalopathy: Plan: Patient with worsening confusion and encephalopathy which may be toxic encephalopathy as she is on muscle relaxants which also may be metabolic encephalopathy from panniculitis had previous umbilical hernia repair site. stitch removed from wound with now presumption this was stitch granuloma, opened skin and secondarily infected from staph, surgery will follow as outpt and will recommend antibitotics With regard to toxic encephalopathy improved as medications were held, lyrica dose reduced CT scan was obtained and was unremarkable for any acute changes in her head has Leukocytosis secondary panniculitis with fluid collection, leukocytosis has improved greatly ID consult on 02/15, recommends removal of mesh or life long antibiotics, change to cephalexin 2 gms iv q8 could eventually transition to oral Keflex. Patient will likely be in a rehab situation postdischarge which can be continued with close oversight to her wound by Dr Morton, given sensitivities will venita nge to po Doxycycline Currently awaiting placement. Given that appeared to be a suture granuloma, will conintue antibiotics until 1 week followup with Gen surgery. No new change in plan. reviewed blood work. (2) Atrial fibrillation: Plan: Chronic atrial fibrillation Xarelto for anticoagulation Continues to be rate controlled with metoprolol H/o chronic diastolic heart failure, stable typically sees Dr Lopez (3) Ambulatory dysfunction: Plan: Likely her issues are Multifactorial with morbid obesity, spinal stenosis, diabetic peripheral neuropathy as well as acute metabolic encephalopathy CT head negative TSH (recently performed in October and WNL) Spinal stenosis with fall no pain at this time PT/OT, consider placement for inpatient rehab (4) Polyneuropathy: Plan: Patient not complaining of any pain we will hold medications at this time that could be clouding her mental sensorium (5) Sleep apnea: Plan: CPAP HS Plan VTE Prophylaxis - Xarelto Patient made full admission due to metabolic encephalopathy secondary to panniculitis Had Peer to Peer appeal denied for rehab, patient will be working on placement for SNF. Admission and Anticipated Discharge Date Admission Date: February 11, 2023 Subjective Patient reports no new symptoms Review of Systems Review of Systems: All systems reviewed & are unremarkable except as noted in HPI & below Physical Exam Physical Exam: Constitutional: well developed no acute distress Eyes: PERRL, conjunctivae normal, anicteric sclerae ENMT: external ear and nose normal, oropharynx normal Neck: + short neck and + thick neck Respiratory: normal respiratory effort, lungs clear to auscultation Cardiovascular: Rate/Rhythm: regular rate and + irregularly irregular Heart Sounds: no murmur Extremities: normal capillary refill and + pedal edema (1+ ankles b/l equal); no calf tenderness Gastrointestinal (Abdomen): Normal bowel sounds, soft, nontender, no hepatosplenomegaly Neurologic: moves all extremities and awake; no focal motor deficits and not confused Motor/Sensory: + sensory deficit (numbness in bilateral feet); no tremor and no pronator drift Cranial Nerves: EOM intact bilaterally, normal facial strength, tongue midline, able to rotate head bilaterally, able to elevate shoulders bilaterally, no nystagmus and symmetric palate elevation Coordination: normal [id number] test Psychiatric: A+Ox3, euthymic affect Genitourinary: no CVA tenderness Results & Data Results & Data Vital Signs (Past 12 Hours) Vital Signs Temp Pulse Resp BP Pulse Ox O2 Del Method O2 Flow Rate 02/20/23 20:25 37 C 69 20 116/74 97 Nasal Cannula 3 02/20/23 14:49 37 C 72 17 97 Nasal Cannula 2 02/20/23 14:12 67 129/82 PG Care Time/CCT Total # of Minutes Spent Total Time Spent with Patient: Total time spent is greater than 50% in coordination of care (as documented) at patient's floor/unit and/or counseling patient: Coding Level of Care Code 48604 SUB INP/OBS CARE 2/35MIN Diagnoses Encephalopathy G93.40 Atrial fibrillation I48.91 Ambulatory dysfunction R26.2 Polyneuropathy G62.9 Sleep apnea G47.30
[2023-02-21] MEDS: LEVOTHYROXINE SODIUM 150 MCG TABLET PO SCH (05:48)
[2023-02-21] MEDS: ACETAMINOPHEN 500 MG TAB PO PRN ×4 (06:29→21:03)
[2023-02-21 07:15] LABS: Hematocrit (blood only) 37.2 % (37.0-47.0); Mean Corpuscular Hgb Conc 32.3 g/dL (32.0-36.0); Mean Corpuscular Volume 86.9 fL (80.0-100.0); Mean Platelet Volume 10.4 fL (9.4-12.4); Platelet Count 471 K/uL (130-400); RDW Coefficient of Variation 14.3 % (11.5-14.5); Red Blood Count 4.28 M/uL (4.20-5.40); White Blood Count 9.43 K/ul (4.8-10.8)
[2023-02-21 07:35] LABS: BUN Creatinine Ratio 28.6 (10-20); Creatinine Clr Calc Pharmacy 57.6 ml/min; Est GFR (African American) 54.9 ml/min; Est GFR (Non-African American) 47.3 ml/min; Potassium 4.3 mmol/L (3.5-5.1)
[2023-02-21] MEDS: amLODIPine BESYLATE 5 MG TAB PO SCH ×2 (08:11→20:59)
[2023-02-21] MEDS: guaiFENesin 600 MG TABCR PO SCH ×2 (08:12→20:59)
[2023-02-21] MEDS: hydrALAZINE HCL 25 MG TAB PO SCH ×3 (08:12→20:59)
[2023-02-21] MEDS: FUROSEMIDE 20 MG TAB PO SCH (08:12)
[2023-02-21] MEDS: DOXYCYCLINE HYCLATE 100 MG CAP PO SCH ×2 (08:12→20:59)
[2023-02-21] MEDS: METOPROLOL TARTRATE 25 MG TAB PO SCH ×2 (08:13→20:59)
[2023-02-21] MEDS: RIVAROXABAN 15 MG TAB PO SCH (08:13)
[2023-02-21] MEDS: PANTOprazole 40 MG TAB PO SCH (08:13)
[2023-02-21] MEDS: INSULIN ASPART PER UNIT CHARGE SC SCH ×4 (08:17→21:17)
[2023-02-21] MEDS: THIAMINE HCL 50 MG TABLET PO SCH (09:11)
--- NOTE | 2023-02-21 11:31 | Hospitalist Progress Note ---
Date of Service February 21, 2023 Assessment & Plan (1) Encephalopathy: Plan: Patient with worsening confusion and encephalopathy which may be toxic encephalopathy as she is on muscle relaxants which also may be metabolic encephalopathy from panniculitis had previous umbilical hernia repair site. stitch removed from wound with now presumption this was stitch granuloma, opened skin and secondarily infected from staph, surgery will follow as outpt and will recommend antibitotics With regard to toxic encephalopathy improved as medications were held, lyrica dose reduced CT scan was obtained and was unremarkable for any acute changes in her head has Leukocytosis secondary panniculitis with fluid collection, leukocytosis has improved greatly ID consult on 02/15, recommends removal of mesh or life long antibiotics, change to cephalexin 2 gms iv q8 could eventually transition to oral Keflex. Patient will likely be in a rehab situation postdischarge which can be continued with close oversight to her wound by Dr Morton, given sensitivities will venita nge to po Doxycycline Currently awaiting placement. Given that appeared to be a suture granuloma, will conintue antibiotics until 1 week followup with Gen surgery. No new change in plan. reviewed blood work on 02/21 will obtain chest x ray given her hypoxia. Her lungs did sound clear however, will order incentive spirometry. (2) Atrial fibrillation: Plan: Chronic atrial fibrillation Xarelto for anticoagulation Continues to be rate controlled with metoprolol H/o chronic diastolic heart failure, stable typically sees Dr Lopez (3) Ambulatory dysfunction: Plan: Likely her issues are Multifactorial with morbid obesity, spinal stenosis, diabetic peripheral neuropathy as well as acute metabolic encephalopathy CT head negative TSH (recently performed in October and ) Spinal stenosis with fall no pain at this time PT/OT, consider placement for inpatient rehab (4) Polyneuropathy: Plan: Patient not complaining of any pain we will hold medications at this time that could be clouding her mental sensorium (5) Sleep apnea: Plan: CPAP HS Plan VTE Prophylaxis - Xarelto Patient made full admission due to metabolic encephalopathy secondary to panniculitis Had Peer to Peer appeal denied for rehab, patient will be working on placement for SNF. Admission and Anticipated Discharge Date Admission Date: February 11, 2023 Subjective Patient reports feeling well. She had a good night's sleep. Review of Systems Review of Systems: All systems reviewed & are unremarkable except as noted in HPI & below Physical Exam Physical Exam: Constitutional: well developed no acute distress Eyes: PERRL, conjunctivae normal, anicteric sclerae ENMT: external ear and nose normal, oropharynx normal Neck: + short neck and + thick neck Respiratory: normal respiratory effort, lungs clear to auscultation Cardiovascular: Rate/Rhythm: regular rate and + irregularly irregular Heart Sounds: no murmur Extremities: normal capillary refill and + pedal edema (1+ ankles b/l equal); no calf tenderness Gastrointestinal (Abdomen): Normal bowel sounds, soft, nontender, no hepatosplenomegaly Neurologic: moves all extremities and awake; no focal motor deficits and not confused Motor/Sensory: + sensory deficit (numbness in bilateral feet); no tremor and no pronator drift Cranial Nerves: EOM intact bilaterally, normal facial strength, tongue midline, able to rotate head bilaterally, able to elevate shoulders bilaterally, no nystagmus and symmetric palate elevation Coordination: normal kkmhcs-qt-gave test Psychiatric: A+Ox3, euthymic affect Genitourinary: no CVA tenderness Results & Data Results & Data Vital Signs (Past 12 Hours) Vital Signs Temp Pulse Resp BP Pulse Ox O2 Del Method O2 Flow Rate 02/21/23 07:23 36.9 C 69 18 140/63 97 Nasal Cannula 3 PG Care Time/CCT Total # of Minutes Spent Total Time Spent with Patient: Total time spent is greater than 50% in coordination of care (as documented) at patient's floor/unit and/or counseling patient: Coding Level of Care Code 08401 SUB INP/OBS CARE 2/35MIN Diagnoses Encephalopathy G93.40 Atrial fibrillation I48.91 Ambulatory dysfunction R26.2 Polyneuropathy G62.9 Sleep apnea G47.30
[2023-02-21] MEDS: FENOFIBRATE NANOCRYSTALLIZED 145 MG TABLET PO SCH (11:47)
[2023-02-21 12:21] LABS: Hematocrit (blood only) 38.9 % (37.0-47.0); Hemoglobin 12.3 g/dl (12.0-16.0); Mean Corpuscular Hemoglobin 27.8 pg (25.0-34.0); Mean Corpuscular Hgb Conc 31.6 g/dL (32.0-36.0); Mean Platelet Volume 10.3 fL (9.4-12.4); Platelet Count 525 K/uL (130-400); RDW Coefficient of Variation 14.1 % (11.5-14.5); RDW Standard Deviation 45.3 fL (36.4-46.3); Red Blood Count 4.42 M/uL (4.20-5.40); White Blood Count 10.44 K/ul (4.8-10.8)
[2023-02-21] MEDS: CINACALCET HCL 30 MG TAB PO SCH (13:47)
[2023-02-21] MEDS: LOSARTAN POTASSIUM 50 MG TAB PO SCH (13:47)
[2023-02-21] MEDS: PREGABALIN 75 MG CAP PO SCH ×2 (13:47→21:04)
[2023-02-21] MEDS: traMADol HCL 50 MG TABLET PO PRN (16:20)
--- NOTE | 2023-02-21 17:51 | XRay Report ---
XR chest 2V PA/lateral CLINICAL HISTORY: hypoxia TECHNIQUE: 2 views of the chest were obtained. Comparison: Comparison is made to chest radiograph 02/09/2023 FINDINGS: Right shoulder arthroplasty and posterior lumbar fixation hardware is seen. Calcified aortic knob is seen. The lungs are clear. No evidence of pleural effusion or pneumothorax. IMPRESSION: No acute chest disease. ACT 112: Negative or not required by law. Electronically signed by: Lito Mckeon M.D. 02/21/2023 5:50 PM
[2023-02-21] MEDS: DULoxetine HCL 60 MG CAP PO SCH (20:59)
[2023-02-21] MEDS: PREGABALIN 150 MG CAP PO SCH (21:16)
[2023-02-22] MEDS: ACETAMINOPHEN 500 MG TAB PO PRN ×2 (01:19→20:16)
[2023-02-22] MEDS: LEVOTHYROXINE SODIUM 150 MCG TABLET PO SCH (05:37)
[2023-02-22] MEDS: INSULIN ASPART PER UNIT CHARGE SC SCH ×4 (07:51→22:18)
[2023-02-22] MEDS: PREGABALIN 75 MG CAP PO SCH ×2 (07:55→14:25)
[2023-02-22] MEDS: DOXYCYCLINE HYCLATE 100 MG CAP PO SCH ×2 (07:55→20:16)
[2023-02-22] MEDS: amLODIPine BESYLATE 5 MG TAB PO SCH ×2 (07:55→20:16)
[2023-02-22] MEDS: FUROSEMIDE 20 MG TAB PO SCH (07:56)
[2023-02-22] MEDS: hydrALAZINE HCL 25 MG TAB PO SCH ×3 (07:56→20:15)
[2023-02-22] MEDS: guaiFENesin 600 MG TABCR PO SCH ×2 (07:56→20:17)
[2023-02-22] MEDS: THIAMINE HCL 50 MG TABLET PO SCH (07:57)
[2023-02-22] MEDS: METOPROLOL TARTRATE 25 MG TAB PO SCH ×2 (07:57→20:16)
[2023-02-22] MEDS: PANTOprazole 40 MG TAB PO SCH (07:57)
[2023-02-22] MEDS: RIVAROXABAN 15 MG TAB PO SCH (07:57)
[2023-02-22 08:05] LABS: BUN Creatinine Ratio 27.4 (10-20); Calcium 10.2 mg/dl (8.6-10.3); Creatinine Clr Calc Pharmacy 57.1 ml/min; Est GFR (African American) 54.3 ml/min; Est GFR (Non-African American) 46.8 ml/min; Potassium 4.2 mmol/L (3.5-5.1)
[2023-02-22] MEDS: traMADol HCL 50 MG TABLET PO PRN (09:56)
--- NOTE | 2023-02-22 10:16 | Surgery Progress Note ---
Date of Service February 22, 2023 Assessment & Plan (1) Draining cutaneous sinus tract: Plan: The area as described above in the physical with the patient's permission we swabbed the surrounding area with alcohol and using a maliha hook we tried to rides supervisor another Prolene suture At the time of the surgery I have placed for Prolene suture to suspend the mesh and this was fascial stitch from the skin incision down to the abdominal wall We were able to hook again what felt like a Prolene suture but was unable to be delivered in the wounds sufficiently to remove it and the patient has some discomfort at this point therefore I held off we will redress the wound and hopefully tomorrow or next day we will try again to extract another suture The patient is awaiting placement insert at this point I am not considering to do anything more extensive surgically other than tried to locally and percutaneously extract this foreign bodies It would be a major undertaking to try to remove and open the wound with extracting the mesh for this patient who has significant other premorbid conditions If the patient is discharge to the [facility] we will see her back in the office in approximately 1 week and we will continue to monitor this drainage as an outpatient for now For the time being I would continue her doxycycline 100 mg twice daily Admission and Anticipated Discharge Date Admission Date: February 11, 2023 Subjective Patient denies any abdominal pain she states she had some dressing staining yesterday over the area where it is ecchymotic Prolene suture denies any chills or fever Physical Exam Physical Exam: The abdominal exam is completely benign The tract from the skin through the subcutaneous tissue where we had removed a Prolene suture had been dry for approximately 3 days with a dry scab on it and apparently yesterday it started draining again which this morning the scab is off and she does have some dark light greenish nonodorous drainage similar to what she had prior to removing the Prolene suture There is no cellulitis or erythema around the tract site Results & Data Vital Signs (Past 12 Hours) Vital Signs Temp Pulse Resp BP Pulse Ox O2 Del Method O2 Flow Rate 02/22/23 07:50 Room Air 02/22/23 07:38 36.8 C 82 18 156/83 H 93 Room Air 02/21/23 22:58 Nasal Cannula, CPAP 3
[2023-02-22] MEDS: FENOFIBRATE NANOCRYSTALLIZED 145 MG TABLET PO SCH (12:24)
[2023-02-22] MEDS: LOSARTAN POTASSIUM 50 MG TAB PO SCH (14:25)
[2023-02-22] MEDS: CINACALCET HCL 30 MG TAB PO SCH (14:25)
[2023-02-22] MEDS: PREGABALIN 150 MG CAP PO SCH (20:15)
[2023-02-22] MEDS: DULoxetine HCL 60 MG CAP PO SCH (20:16)
--- NOTE | 2023-02-22 22:30 | Hospitalist Progress Note ---
Date of Service February 22, 2023 Assessment & Plan (1) Encephalopathy: Plan: Patient with worsening confusion and encephalopathy which may be toxic encephalopathy as she is on muscle relaxants which also may be metabolic encephalopathy from panniculitis had previous umbilical hernia repair site. stitch removed from wound with now presumption this was stitch granuloma, opened skin and secondarily infected from staph, surgery will follow as outpt and will recommend antibitotics With regard to toxic encephalopathy improved as medications were held, lyrica dose reduced CT scan was obtained and was unremarkable for any acute changes in her head has Leukocytosis secondary panniculitis with fluid collection, leukocytosis has improved greatly ID consult on 02/15, recommends removal of mesh or life long antibiotics, change to cephalexin 2 gms iv q8 could eventually transition to oral Keflex. Patient will likely be in a rehab situation postdischarge which can be continued with close oversight to her wound by Dr Morton, given sensitivities will venita nge to po Doxycycline Currently awaiting placement. Given that appeared to be a suture granuloma, will conintue antibiotics until 1 week followup with Gen surgery. No new change in plan. reviewed blood work on 02/21 As WBC normalized, no need to order diff now on room air (2) Atrial fibrillation: Plan: Chronic atrial fibrillation Xarelto for anticoagulation Continues to be rate controlled with metoprolol H/o chronic diastolic heart failure, stable typically sees Dr Lopez (3) Ambulatory dysfunction: Plan: Likely her issues are Multifactorial with morbid obesity, spinal stenosis, diabetic peripheral neuropathy as well as acute metabolic encephalopathy CT head negative TSH (recently performed in October and WN) Spinal stenosis with fall no pain at this time PT/OT, consider placement for inpatient rehab (4) Polyneuropathy: Plan: Patient not complaining of any pain we will hold medications at this time that could be clouding her mental sensorium (5) Sleep apnea: Plan: CPAP HS Plan VTE Prophylaxis - Xarelto Patient made full admission due to metabolic encephalopathy secondary to panniculitis Had Peer to Peer appeal denied for rehab, patient will be working on placement for SNF. Admission and Anticipated Discharge Date Admission Date: February 11, 2023 Subjective Patient reports no new symptoms. Review of Systems Review of Systems: All systems reviewed & are unremarkable except as noted in HPI & below Physical Exam Physical Exam: Constitutional: well developed no acute distress Eyes: PERRL, conjunctivae normal, anicteric sclerae ENMT: external ear and nose normal, oropharynx normal Neck: + short neck and + thick neck Respiratory: normal respiratory effort, lungs clear to auscultation Cardiovascular: Rate/Rhythm: regular rate and + irregularly irregular Heart Sounds: no murmur Extremities: normal capillary refill and + pedal edema (1+ ankles b/l equal); no calf tenderness Gastrointestinal (Abdomen): Normal bowel sounds, soft, nontender, no hepatosplenomegaly Neurologic: moves all extremities and awake; no focal motor deficits and not confused Motor/Sensory: + sensory deficit (numbness in bilateral feet); no tremor and no pronator drift Cranial Nerves: EOM intact bilaterally, normal facial strength, tongue midline, able to rotate head bilaterally, able to elevate shoulders bilaterally, no nystagmus and symmetric palate elevation Coordination: normal [id number] test Psychiatric: A+Ox3, euthymic affect Genitourinary: no CVA tenderness Results & Data Results & Data Vital Signs (Past 12 Hours) Vital Signs Temp Pulse Pulse Resp BP BP Pulse Ox 02/22/23 20:14 36.4 C L 69 18 159/82 H 94 02/22/23 14:47 36.7 C 73 18 165/96 H 95 02/22/23 14:24 73 133/76 O2 Del Method 02/22/23 20:14 Room Air 02/22/23 14:47 Room Air 02/22/23 14:24 PG Care Time/CCT Total # of Minutes Spent Total Time Spent with Patient: Total time spent is greater than 50% in coordination of care (as documented) at patient's floor/unit and/or counseling patient: Coding Level of Care Code 34564 SUB INP/OBS CARE 2/35MIN Diagnoses Encephalopathy G93.40 Atrial fibrillation I48.91 Ambulatory dysfunction R26.2 Polyneuropathy G62.9 Sleep apnea G47.30
[2023-02-23] MEDS: LEVOTHYROXINE SODIUM 150 MCG TABLET PO SCH (06:36)
[2023-02-23] MEDS: INSULIN ASPART PER UNIT CHARGE SC SCH ×4 (08:26→20:36)
[2023-02-23] MEDS: RIVAROXABAN 15 MG TAB PO SCH (08:36)
[2023-02-23] MEDS: amLODIPine BESYLATE 5 MG TAB PO SCH ×2 (08:37→20:35)
[2023-02-23] MEDS: FUROSEMIDE 20 MG TAB PO SCH (08:37)
[2023-02-23] MEDS: hydrALAZINE HCL 25 MG TAB PO SCH ×3 (08:38→20:34)
[2023-02-23] MEDS: THIAMINE HCL 50 MG TABLET PO SCH (08:38)
[2023-02-23] MEDS: PANTOprazole 40 MG TAB PO SCH (08:38)
[2023-02-23] MEDS: guaiFENesin 600 MG TABCR PO SCH ×2 (08:38→20:35)
[2023-02-23] MEDS: METOPROLOL TARTRATE 25 MG TAB PO SCH ×2 (08:38→20:35)
[2023-02-23] MEDS: DOXYCYCLINE HYCLATE 100 MG CAP PO SCH ×2 (08:38→20:35)
[2023-02-23] MEDS: ACETAMINOPHEN 500 MG TAB PO PRN ×3 (08:40→20:33)
[2023-02-23] MEDS: PREGABALIN 75 MG CAP PO SCH ×2 (08:43→13:50)
[2023-02-23] MEDS: FENOFIBRATE NANOCRYSTALLIZED 145 MG TABLET PO SCH (13:50)
[2023-02-23] MEDS: CINACALCET HCL 30 MG TAB PO SCH (13:50)
[2023-02-23] MEDS: LOSARTAN POTASSIUM 50 MG TAB PO SCH (13:51)
[2023-02-23] MEDS: PREGABALIN 150 MG CAP PO SCH (20:33)
[2023-02-23] MEDS: DULoxetine HCL 60 MG CAP PO SCH (20:35)
--- NOTE | 2023-02-23 22:35 | Hospitalist Progress Note ---
Date of Service February 23, 2023 Assessment & Plan (1) Encephalopathy: Plan: Patient with worsening confusion and encephalopathy which may be toxic encephalopathy as she is on muscle relaxants which also may be metabolic encephalopathy from panniculitis had previous umbilical hernia repair site. stitch removed from wound with now presumption this was stitch granuloma, opened skin and secondarily infected from staph, surgery will follow as outpt and will recommend antibitotics With regard to toxic encephalopathy improved as medications were held, lyrica dose reduced CT scan was obtained and was unremarkable for any acute changes in her head has Leukocytosis secondary panniculitis with fluid collection, leukocytosis has improved greatly ID consult on 02/15, recommends removal of mesh or life long antibiotics, change to cephalexin 2 gms iv q8 could eventually transition to oral Keflex. Patient will likely be in a rehab situation postdischarge which can be continued with close oversight to her wound by Dr Morton, given sensitivities will venita nge to po Doxycycline Currently awaiting placement. Given that appeared to be a suture granuloma, will conintue antibiotics until 1 week followup with Gen surgery. No new change in plan. reviewed blood work on 02/21 As WBC normalized, no need to order diff now on room air (2) Atrial fibrillation: Plan: Chronic atrial fibrillation Xarelto for anticoagulation Continues to be rate controlled with metoprolol H/o chronic diastolic heart failure, stable typically sees Dr Lopez (3) Ambulatory dysfunction: Plan: Likely her issues are Multifactorial with morbid obesity, spinal stenosis, diabetic peripheral neuropathy as well as acute metabolic encephalopathy CT head negative TSH (recently performed in October and WN) Spinal stenosis with fall no pain at this time PT/OT, consider placement for inpatient rehab (4) Polyneuropathy: Plan: Patient not complaining of any pain we will hold medications at this time that could be clouding her mental sensorium (5) Sleep apnea: Plan: CPAP HS Plan VTE Prophylaxis - Xarelto Patient made full admission due to metabolic encephalopathy secondary to panniculitis Had Peer to Peer appeal denied for rehab, patient will be working on placement for SNF. Admission and Anticipated Discharge Date Admission Date: February 11, 2023 Subjective Patient reports no new symptoms Review of Systems Review of Systems: All systems reviewed & are unremarkable except as noted in HPI & below Physical Exam Physical Exam: Constitutional: well developed no acute distress Eyes: PERRL, conjunctivae normal, anicteric sclerae ENMT: external ear and nose normal, oropharynx normal Neck: + short neck and + thick neck Respiratory: normal respiratory effort, lungs clear to auscultation Cardiovascular: Rate/Rhythm: regular rate and + irregularly irregular Heart Sounds: no murmur Extremities: normal capillary refill and + pedal edema (1+ ankles b/l equal); no calf tenderness Gastrointestinal (Abdomen): Normal bowel sounds, soft, nontender, no hepatosplenomegaly Neurologic: moves all extremities and awake; no focal motor deficits and not confused Motor/Sensory: + sensory deficit (numbness in bilateral feet); no tremor and no pronator drift Cranial Nerves: EOM intact bilaterally, normal facial strength, tongue midline, able to rotate head bilaterally, able to elevate shoulders bilaterally, no nystagmus and symmetric palate elevation Coordination: normal [id number] test Psychiatric: A+Ox3, euthymic affect Genitourinary: no CVA tenderness Results & Data Results & Data Vital Signs (Past 12 Hours) Vital Signs Temp Pulse Resp BP BP Pulse Ox O2 Del Method 02/23/23 20:38 36.4 C L 76 16 128/83 93 Room Air 02/23/23 14:53 37 C 76 16 108/67 92 Room Air 02/23/23 13:53 71 120/71 PG Care Time/CCT Total # of Minutes Spent Total Time Spent with Patient: Total time spent is greater than 50% in coordination of care (as documented) at patient's floor/unit and/or counseling patient: Coding Level of Care Code 88768 SUB INP/OBS CARE 2/35MIN Diagnoses Encephalopathy G93.40 Atrial fibrillation I48.91 Ambulatory dysfunction R26.2 Polyneuropathy G62.9 Sleep apnea G47.30
[2023-02-23] MEDS: traMADol HCL 50 MG TABLET PO PRN (22:59)
[2023-02-24] MEDS: LEVOTHYROXINE SODIUM 150 MCG TABLET PO SCH (05:33)
--- NOTE | 2023-02-24 08:32 | Surgery Progress Note ---
Date of Service February 24, 2023 Assessment & Plan (1) Draining cutaneous sinus tract: Plan: Discussed with the patient present situation she is scheduled to go to [facility] today I asked that she make an appointment to see me in the office in a few weeks we will keep her on antibiotics until then I did mention to her depending on the clinical picture we may have to take that mesh out she is not in favor that she states that she will put up with a little drainage off and on Did mention that I will be out of town another surgeon in our group will be available as needed Plan May shower reapply dressing in the area around the bellybutton Continue doxycycline 100 mg twice daily until I see her in the office If any other acute problems develop other surgeons in our group are available as I will be out of town for the next few weeks Admission and Anticipated Discharge Date Admission Date: February 11, 2023 Subjective Overall feels fine no abdominal discomfort states she has not had any drainage from periumbilical area Physical Exam Physical Exam: Sitting up in a chair alert coherent Dressing that was put on 2 days ago on the periumbilical area is dry spot of dark blood on the dressing There is no cellulitis and pressing along that area I cannot yield any drainage Results & Data Vital Signs (Past 12 Hours) Vital Signs Temp Pulse Pulse Resp BP BP Pulse Ox 02/24/23 06:31 36.4 C L 66 18 118/72 93 02/23/23 20:38 36.4 C L 76 16 128/83 93 O2 Del Method 02/24/23 06:31 Room Air 02/23/23 20:38 Room Air
[2023-02-24] MEDS: INSULIN ASPART PER UNIT CHARGE SC SCH ×4 (08:46→21:31)
[2023-02-24] MEDS: PREGABALIN 75 MG CAP PO SCH ×2 (08:47→14:19)
[2023-02-24] MEDS: ACETAMINOPHEN 500 MG TAB PO PRN (08:47)
[2023-02-24] MEDS: amLODIPine BESYLATE 5 MG TAB PO SCH ×2 (08:48→20:50)
[2023-02-24] MEDS: PANTOprazole 40 MG TAB PO SCH (08:48)
[2023-02-24] MEDS: FUROSEMIDE 20 MG TAB PO SCH (08:49)
[2023-02-24] MEDS: THIAMINE HCL 50 MG TABLET PO SCH (08:49)
[2023-02-24] MEDS: DOXYCYCLINE HYCLATE 100 MG CAP PO SCH ×2 (08:49→20:50)
[2023-02-24] MEDS: METOPROLOL TARTRATE 25 MG TAB PO SCH ×2 (08:49→20:51)
[2023-02-24] MEDS: hydrALAZINE HCL 25 MG TAB PO SCH ×3 (08:50→20:51)
[2023-02-24] MEDS: RIVAROXABAN 15 MG TAB PO SCH (08:50)
[2023-02-24] MEDS: guaiFENesin 600 MG TABCR PO SCH ×2 (08:50→20:50)
[2023-02-24] MEDS: FENOFIBRATE NANOCRYSTALLIZED 145 MG TABLET PO SCH (14:15)
[2023-02-24] MEDS: CINACALCET HCL 30 MG TAB PO SCH (14:16)
[2023-02-24] MEDS: LOSARTAN POTASSIUM 50 MG TAB PO SCH (14:16)
[2023-02-24] MEDS: DULoxetine HCL 60 MG CAP PO SCH (20:50)
[2023-02-24] MEDS: PREGABALIN 150 MG CAP PO SCH (20:55)
[2023-02-24] MEDS: traMADol HCL 50 MG TABLET PO PRN (20:55)
[2023-02-25] MEDS: LEVOTHYROXINE SODIUM 150 MCG TABLET PO SCH (06:07)
--- NOTE | 2023-02-25 06:11 | Hospitalist Progress Note ---
Date of Service February 24, 2023 Assessment & Plan (1) Encephalopathy: Plan: Patient with worsening confusion and encephalopathy which may be toxic encephalopathy as she is on muscle relaxants which also may be metabolic encephalopathy from panniculitis had previous umbilical hernia repair site. stitch removed from wound with now presumption this was stitch granuloma, opened skin and secondarily infected from staph, surgery will follow as outpt and will recommend antibitotics With regard to toxic encephalopathy improved as medications were held, lyrica dose reduced CT scan was obtained and was unremarkable for any acute changes in her head has Leukocytosis secondary panniculitis with fluid collection, leukocytosis has improved greatly ID consult on 02/15, recommends removal of mesh or life long antibiotics, change to cephalexin 2 gms iv q8 could eventually transition to oral Keflex. Patient will likely be in a rehab situation postdischarge which can be continued with close oversight to her wound by Dr Morton, given sensitivities will venita nge to po Doxycycline Currently awaiting placement. Given that appeared to be a suture granuloma, will conintue antibiotics until 1 week followup with Gen surgery. No new change in plan. reviewed blood work on 02/21 As WBC normalized, no need to order diff now on room air (2) Atrial fibrillation: Plan: Chronic atrial fibrillation Xarelto for anticoagulation Continues to be rate controlled with metoprolol H/o chronic diastolic heart failure, stable typically sees Dr Lopez (3) Ambulatory dysfunction: Plan: Likely her issues are Multifactorial with morbid obesity, spinal stenosis, diabetic peripheral neuropathy as well as acute metabolic encephalopathy CT head negative TSH (recently performed in October and ) Spinal stenosis with fall no pain at this time PT/OT, consider placement for inpatient rehab (4) Polyneuropathy: Plan: Patient not complaining of any pain we will hold medications at this time that could be clouding her mental sensorium (5) Sleep apnea: Plan: CPAP HS Plan VTE Prophylaxis - Xarelto Patient made full admission due to metabolic encephalopathy secondary to panniculitis Had Peer to Peer appeal denied for rehab, patient will be working on placement for SNF. Discharge on 02/25 Admission and Anticipated Discharge Date Admission Date: February 11, 2023 Subjective Patient reports no new symptoms. Review of Systems Review of Systems: All systems reviewed & are unremarkable except as noted in HPI & below Physical Exam Physical Exam: Constitutional: well developed no acute distress Eyes: PERRL, conjunctivae normal, anicteric sclerae ENMT: external ear and nose normal, oropharynx normal Neck: + short neck and + thick neck Respiratory: normal respiratory effort, lungs clear to auscultation Cardiovascular: Rate/Rhythm: regular rate and + irregularly irregular Heart Sounds: no murmur Extremities: normal capillary refill and + pedal edema (1+ ankles b/l equal); no calf tenderness Gastrointestinal (Abdomen): Normal bowel sounds, soft, nontender, no hepatosplenomegaly Neurologic: moves all extremities and awake; no focal motor deficits and not confused Motor/Sensory: + sensory deficit (numbness in bilateral feet); no tremor and no pronator drift Cranial Nerves: EOM intact bilaterally, normal facial strength, tongue midline, able to rotate head bilaterally, able to lola vate shoulders bilaterally, no nystagmus and symmetric palate elevation Coordination: normal [id number] test Psychiatric: A+Ox3, euthymic affect Genitourinary: no CVA tenderness Results & Data Results & Data Vital Signs (Past 12 Hours) Vital Signs Temp Pulse Resp BP Pulse Ox O2 Del Method 02/24/23 20:51 36.3 C L 76 16 115/69 93 Room Air PG Care Time/CCT Total # of Minutes Spent Total Time Spent with Patient: Total time spent is greater than 50% in coordination of care (as documented) at patient's floor/unit and/or counseling patient: Coding Level of Care Code 17057 SUB INP/OBS CARE 2/35MIN Diagnoses Encephalopathy G93.40 Atrial fibrillation I48.91 Ambulatory dysfunction R26.2 Polyneuropathy G62.9 Sleep apnea G47.30
[2023-02-25] MEDS: traMADol HCL 50 MG TABLET PO PRN ×2 (06:18→19:24)
[2023-02-25] MEDS: PREGABALIN 75 MG CAP PO SCH ×2 (07:54→13:46)
[2023-02-25] MEDS: hydrALAZINE HCL 25 MG TAB PO SCH ×3 (07:54→21:09)
[2023-02-25] MEDS: METOPROLOL TARTRATE 25 MG TAB PO SCH ×2 (07:54→21:09)
[2023-02-25] MEDS: amLODIPine BESYLATE 5 MG TAB PO SCH ×2 (07:55→21:08)
[2023-02-25] MEDS: guaiFENesin 600 MG TABCR PO SCH ×2 (07:55→21:06)
[2023-02-25] MEDS: PANTOprazole 40 MG TAB PO SCH (07:56)
[2023-02-25] MEDS: RIVAROXABAN 15 MG TAB PO SCH (07:56)
[2023-02-25] MEDS: THIAMINE HCL 50 MG TABLET PO SCH (07:57)
[2023-02-25] MEDS: FUROSEMIDE 20 MG TAB PO SCH (07:57)
[2023-02-25] MEDS: INSULIN ASPART PER UNIT CHARGE SC SCH ×4 (09:16→21:55)
--- NOTE | 2023-02-25 09:22 | Hospitalist Progress Note ---
Date of Service February 25, 2023 Assessment & Plan (1) Encephalopathy: Plan: Patient presenting with worsening confusion and encephalopathy which liekly was toxic encephalopathy as she is on muscle relaxants and metabolic encephalopathy from panniculitis had previous umbilical hernia repair site. stitch removed from wound with now presumption this was stitch granuloma, opened skin and secondarily infected from staph, surgery will follow as outpt and will recommend antibitotics With regard to toxic encephalopathy improved as medications were held, lyrica dose reduced CT scan was obtained and was unremarkable for any acute changes in her head Leukocytosis secondary panniculitis with fluid collection, leukocytosis has improved greatly ID consult on 02/15, recommends removal of mesh or life long antibiotics, change to cephalexin 2 gms iv q8 could eventually transition to oral Keflex. Patient will likely be in a rehab situation postdischarge which can be continued with close oversight to her wound by Dr Morton, given sensitivities did change to po Doxycycline Currently awaiting placement. Given that appeared to be a suture granuloma, will continue antibiotics with no stop and have a post discharge 1 week followup with Gen surgery. anticipate [facility] to [facility] on 818 (2) Atrial fibrillation: Plan: Chronic atrial fibrillation Xarelto for anticoagulation Continues to be rate controlled with metoprolol H/o chronic diastolic heart failure, stable typically sees Dr Lopez (3) Ambulatory dysfunction: Plan: Likely her issues are Multifactorial with morbid obesity, spinal stenosis, diabetic peripheral neuropathy as well as acute metabolic encephalopathy CT head negative TSH (recently performed in October and WN) Spinal stenosis with fall no pain at this time even after stopping muscle relaxant PT/OT, consider placement for inpatient rehab (4) Polyneuropathy: Plan: Patient not complaining of any pain we will hold medications at this time that could be clouding her mental sensorium (5) Sleep apnea: Plan: CPAP HS Plan VTE Prophylaxis - Xarelto Patient made full admission due to metabolic encephalopathy secondary to panniculitis Had Peer to Peer appeal denied for rehab, patient will be working on placement for SNF. Admission and Anticipated Discharge Date Admission Date: February 11, 2023 Subjective patient completely back to her baseline her abdominal pannus area is improved she is very little complaints of back discomfort Physical Exam Physical Exam: patient is alert and oriented can converse to me plan of discharge likely to skilled facility in 1 day. Patient has no tenderness on her umbilical hernia site we will continue long-term antibiotics with close outpatient supervision Results & Data Results & Data Vital Signs (Past 12 Hours) Vital Signs Temp Pulse Pulse Resp BP Pulse Ox O2 Del Method 02/25/23 07:59 65 02/25/23 07:02 97.7 F 59 L 16 119/78 93 Room Air PG Care Time/CCT Total # of Minutes Spent Total Time Spent with Patient: Total time spent is greater than 50% in coordination of care (as documented) at patient's floor/unit and/or counseling patient: Coding Level of Care Code 67900 SUB INP/OBS CARE 1/25MIN Diagnoses Encephalopathy G93.40 Atrial fibrillation I48.91 Ambulatory dysfunction R26.2 Polyneuropathy G62.9 Sleep apnea G47.30
[2023-02-25] MEDS: CINACALCET HCL 30 MG TAB PO SCH (13:46)
[2023-02-25] MEDS: LOSARTAN POTASSIUM 50 MG TAB PO SCH (13:46)
[2023-02-25] MEDS: FENOFIBRATE NANOCRYSTALLIZED 145 MG TABLET PO SCH (13:46)
[2023-02-25] MEDS: DULoxetine HCL 60 MG CAP PO SCH (21:09)
[2023-02-25] MEDS: PREGABALIN 150 MG CAP PO SCH (21:20)
[2023-02-26] MEDS: LEVOTHYROXINE SODIUM 150 MCG TABLET PO SCH (05:32)
[2023-02-26] MEDS: INSULIN ASPART PER UNIT CHARGE SC SCH ×4 (08:42→21:15)
[2023-02-26] MEDS: hydrALAZINE HCL 25 MG TAB PO SCH ×3 (08:49→20:37)
[2023-02-26] MEDS: THIAMINE HCL 50 MG TABLET PO SCH (08:49)
[2023-02-26] MEDS: guaiFENesin 600 MG TABCR PO SCH ×2 (08:49→20:36)
[2023-02-26] MEDS: METOPROLOL TARTRATE 25 MG TAB PO SCH ×2 (08:49→20:36)
[2023-02-26] MEDS: amLODIPine BESYLATE 5 MG TAB PO SCH ×2 (08:50→20:38)
[2023-02-26] MEDS: FUROSEMIDE 20 MG TAB PO SCH (08:50)
[2023-02-26] MEDS: RIVAROXABAN 15 MG TAB PO SCH (08:51)
[2023-02-26] MEDS: PANTOprazole 40 MG TAB PO SCH (08:51)
[2023-02-26] MEDS: DOXYCYCLINE HYCLATE 100 MG CAP PO SCH ×2 (09:27→20:38)
[2023-02-26] MEDS: PREGABALIN 75 MG CAP PO SCH ×2 (09:27→13:29)
[2023-02-26] MEDS: traMADol HCL 50 MG TABLET PO PRN ×2 (13:28→20:35)
[2023-02-26] MEDS: CINACALCET HCL 30 MG TAB PO SCH (13:29)
[2023-02-26] MEDS: FENOFIBRATE NANOCRYSTALLIZED 145 MG TABLET PO SCH (13:29)
[2023-02-26] MEDS: LOSARTAN POTASSIUM 50 MG TAB PO SCH (13:29)
--- NOTE | 2023-02-26 18:01 | Hospitalist Progress Note ---
Date of Service February 26, 2023 Assessment & Plan (1) Encephalopathy: Plan: Patient presenting with worsening confusion and encephalopathy which liekly was toxic encephalopathy as she is on muscle relaxants and metabolic encephalopathy from panniculitis had previous umbilical hernia repair site. stitch removed from wound with now presumption this was stitch granuloma, opened skin and secondarily infected from staph, surgery will follow as outpt and will recommend antibitotics With regard to toxic encephalopathy improved as medications were held, lyrica dose reduced CT scan was obtained and was unremarkable for any acute changes in her head Leukocytosis secondary panniculitis with fluid collection, leukocytosis has improved greatly ID consult on 02/15, recommends removal of mesh or life long antibiotics, change to cephalexin 2 gms iv q8 could eventually transition to oral Keflex. Patient will likely be in a rehab situation postdischarge which can be continued with close oversight to her wound by Dr Morton, given sensitivities did change to po Doxycycline Currently awaiting placement, now delayed due to covid test + status Given that appeared to be a suture granuloma, will continue antibiotics with no stop and have a post discharge 1 week followup with Gen surgery. anticipate disposition to residential facility on 818 (2) Atrial fibrillation: Plan: Chronic atrial fibrillation Xarelto for anticoagulation Continues to be rate controlled with metoprolol H/o chronic diastolic heart failure, stable typically sees Dr Lopez (3) Ambulatory dysfunction: Plan: Likely her issues are Multifactorial with morbid obesity, spinal stenosis, diabetic peripheral neuropathy as well as acute metabolic encephalopathy CT head negative TSH (recently performed in October and WN) Spinal stenosis with fall no pain at this time even after stopping muscle relaxant PT/OT, consider placement for inpatient rehab (4) Polyneuropathy: Plan: Patient not complaining of any pain we will hold medications at this time that could be clouding her mental sensorium (5) Sleep apnea: Plan: CPAP HS (6) COVID: Plan: incidental covid test, no clinical symptoms, continue supportive care and isoloation per policy Plan VTE Prophylaxis - Xarelto Patient made full admission due to metabolic encephalopathy secondary to panniculitis Had Peer to Peer appeal denied for rehab, patient will be working on placement for SNF, now delayed due to covid test + status Admission and Anticipated Discharge Date Admission Date: February 11, 2023 Subjective patient completely back to her baseline her abdominal pannus area is improved she is very little complaints of back discomfort Pt found to have Covid + pre discharge testing, could be from october this year covid infection, snf wants to delay transfer for isolation Physical Exam Physical Exam: patient is alert and oriented can converse to me plan of care lungs are clear pannus is stable, no erythema Results & Data Results & Data Vital Signs (Past 12 Hours) Vital Signs Temp Pulse Resp BP Pulse Ox O2 Del Method 02/26/23 15:20 98.6 F 73 18 132/78 93 Room Air 02/26/23 08:14 98.4 F 70 18 150/82 H 93 Room Air PG Care Time/CCT Total # of Minutes Spent Total Time Spent with Patient: Total time spent is greater than 50% in coordination of care (as documented) at patient's floor/unit and/or counseling patient: Coding Level of Care Code 02399 SUB INP/OBS CARE 1/25MIN Diagnoses Encephalopathy G93.40 Atrial fibrillation I48.91 Ambulatory dysfunction R26.2 Polyneuropathy G62.9 Sleep apnea G47.30 COVID U07.1
[2023-02-26] MEDS: PREGABALIN 150 MG CAP PO SCH (20:35)
[2023-02-26] MEDS: DULoxetine HCL 60 MG CAP PO SCH (20:37)
[2023-02-27] MEDS: LEVOTHYROXINE SODIUM 150 MCG TABLET PO SCH (06:23)
[2023-02-27] MEDS: traMADol HCL 50 MG TABLET PO PRN ×3 (06:23→22:40)
[2023-02-27] MEDS: INSULIN ASPART PER UNIT CHARGE SC SCH ×4 (08:00→21:34)
[2023-02-27] MEDS: PREGABALIN 75 MG CAP PO SCH ×2 (08:09→13:45)
[2023-02-27] MEDS: FUROSEMIDE 20 MG TAB PO SCH (08:10)
[2023-02-27] MEDS: amLODIPine BESYLATE 5 MG TAB PO SCH ×2 (08:10→21:13)
[2023-02-27] MEDS: DOXYCYCLINE HYCLATE 100 MG CAP PO SCH ×2 (08:10→21:11)
[2023-02-27] MEDS: guaiFENesin 600 MG TABCR PO SCH ×2 (08:11→21:12)
[2023-02-27] MEDS: hydrALAZINE HCL 25 MG TAB PO SCH ×3 (08:11→21:13)
[2023-02-27] MEDS: METOPROLOL TARTRATE 25 MG TAB PO SCH ×2 (08:12→21:11)
[2023-02-27] MEDS: PANTOprazole 40 MG TAB PO SCH (08:12)
[2023-02-27] MEDS: THIAMINE HCL 50 MG TABLET PO SCH (08:13)
[2023-02-27] MEDS: RIVAROXABAN 15 MG TAB PO SCH (08:13)
[2023-02-27] MEDS: FENOFIBRATE NANOCRYSTALLIZED 145 MG TABLET PO SCH (12:28)
[2023-02-27] MEDS: CINACALCET HCL 30 MG TAB PO SCH (13:46)
[2023-02-27] MEDS: LOSARTAN POTASSIUM 50 MG TAB PO SCH (13:46)
[2023-02-27] MEDS ORDERED: MICONAZOLE NITRATE POWDER 85 GM EXT PRN (14:16)
--- NOTE | 2023-02-27 17:31 | Hospitalist Progress Note ---
Date of Service February 27, 2023 Assessment & Plan (1) Encephalopathy: Plan: Patient presenting with worsening confusion and encephalopathy which liekly was toxic encephalopathy as she is on muscle relaxants and metabolic encephalopathy from panniculitis had previous umbilical hernia repair site. previously stitch removed from wound with now presumption this was stitch granuloma, opened skin and secondarily infected from staph, surgery will follow as outpt and will recommend antibiotics continues With regard to toxic encephalopathy improved as medications were held, lyrica dose reduced CT scan was obtained and was unremarkable for any acute changes in her head Leukocytosis secondary panniculitis with fluid collection, leukocytosis has improved greatly ID consult on 02/15, recommends removal of mesh or life long antibiotics, change to cephalexin 2 gms iv q8 could eventually transition to oral Keflex. Patient will likely be in a rehab situation postdischarge which can be continued with close oversight to her wound by Dr Morton, given sensitivities did change to po Doxycycline Currently awaiting placement, now delayed due to covid test + status Given that appeared to be a suture granuloma, will continue antibiotics with no stop and have a post discharge 1 week followup with Gen surgery. [facility] (2) Atrial fibrillation: Plan: Chronic atrial fibrillation Xarelto for anticoagulation Continues to be rate controlled with metoprolol H/o chronic diastolic heart failure, stable typically sees Dr Lopez (3) Ambulatory dysfunction: Plan: Likely her issues are Multifactorial with morbid obesity, spinal stenosis, diabetic peripheral neuropathy as well as acute metabolic encephalopathy CT head negative TSH (recently performed in October and ) Spinal stenosis with fall no pain at this time even after stopping muscle re laxant PT/OT, consider placement for inpatient rehab (4) Polyneuropathy: Plan: Patient not complaining of any pain we will hold medications at this time that could be clouding her mental sensorium (5) Sleep apnea: Plan: CPAP HS (6) COVID: Plan: incidental covid test, no clinical symptoms, continue supportive care and isoloation per policy Plan VTE Prophylaxis - Xarelto Patient made full admission due to metabolic encephalopathy secondary to panniculitis Had Peer to Peer appeal denied for rehab, patient will be working on placement for SNF, now delayed due to covid test + status Admission and Anticipated Discharge Date Admission Date: February 11, 2023 Subjective patient completely back to her baseline her abdominal pannus area is improved she is very little complaints of back discomfort Pt found to have Covid + pre discharge testing, could be from october this year covid infection, snf wants to delay transfer for isolation Physical Exam Physical Exam: patient is alert and oriented can converse to me plan of care lungs are clear pannus is stable, no erythema Results & Data Results & Data Vital Signs (Past 12 Hours) Vital Signs Temp Pulse Pulse Resp BP BP Pulse Ox 02/27/23 15:06 98.1 F 70 16 128/82 96 02/27/23 13:50 88 110/73 02/27/23 06:24 97.7 F 76 16 142/91 H 93 O2 Del Method 02/27/23 15:06 Room Air 02/27/23 13:50 02/27/23 06:24 Room Air PG Care Time/CCT Total # of Minutes Spent Total Time Spent with Patient: Total time spent is greater than 50% in coordination of care (as documented) at patient's floor/unit and/or counseling patient: Coding Level of Care Code 94463 SUB INP/OBS CARE 125MIN Diagnoses Encephalopathy G93.40 Atrial fibrillation I48.91 Ambulatory dysfunction R26.2 Polyneuropathy G62.9 Sleep apnea G47.30 COVID U07.1
[2023-02-27] MEDS: ACETAMINOPHEN 500 MG TAB PO PRN (21:10)
[2023-02-27] MEDS: PREGABALIN 150 MG CAP PO SCH (21:10)
[2023-02-27] MEDS: DULoxetine HCL 60 MG CAP PO SCH (21:11)
[2023-02-28] MEDS: LEVOTHYROXINE SODIUM 150 MCG TABLET PO SCH (05:43)
[2023-02-28] MEDS: traMADol HCL 50 MG TABLET PO PRN ×3 (05:50→20:18)
[2023-02-28] MEDS: ACETAMINOPHEN 500 MG TAB PO PRN ×2 (08:11→16:56)
[2023-02-28] MEDS: INSULIN ASPART PER UNIT CHARGE SC SCH ×4 (08:11→21:42)
[2023-02-28] MEDS: hydrALAZINE HCL 25 MG TAB PO SCH ×3 (08:12→20:21)
[2023-02-28] MEDS: THIAMINE HCL 50 MG TABLET PO SCH (08:12)
[2023-02-28] MEDS: RIVAROXABAN 15 MG TAB PO SCH (08:12)
[2023-02-28] MEDS: PANTOprazole 40 MG TAB PO SCH (08:12)
[2023-02-28] MEDS: PREGABALIN 75 MG CAP PO SCH ×2 (08:12→13:38)
[2023-02-28] MEDS: guaiFENesin 600 MG TABCR PO SCH ×2 (08:13→20:19)
[2023-02-28] MEDS: DOXYCYCLINE HYCLATE 100 MG CAP PO SCH ×2 (08:13→20:21)
[2023-02-28] MEDS: FUROSEMIDE 20 MG TAB PO SCH (08:13)
[2023-02-28] MEDS: amLODIPine BESYLATE 5 MG TAB PO SCH ×2 (08:14→20:21)
[2023-02-28] MEDS: METOPROLOL TARTRATE 25 MG TAB PO SCH ×2 (08:18→20:20)
[2023-02-28] MEDS: FENOFIBRATE NANOCRYSTALLIZED 145 MG TABLET PO SCH (12:30)
[2023-02-28] MEDS: LOSARTAN POTASSIUM 50 MG TAB PO SCH (13:38)
[2023-02-28] MEDS: CINACALCET HCL 30 MG TAB PO SCH (13:38)
--- NOTE | 2023-02-28 16:19 | Hospitalist Progress Note ---
Date of Service February 28, 2023 Assessment & Plan (1) Encephalopathy: Plan: Patient presenting with worsening confusion and encephalopathy which liekly was toxic encephalopathy as she is on muscle relaxants and metabolic encephalopathy from panniculitis had previous umbilical hernia repair site. previously stitch removed from wound with now presumption this was stitch granuloma, opened skin and secondarily infected from staph, surgery will follow as outpt and will recommend antibiotics continues, dishcarge 02/27, now stable With regard to toxic encephalopathy improved as medications were held, lyrica dose reduced CT scan was obtained and was unremarkable for any acute changes in her head Leukocytosis secondary panniculitis with fluid collection, leukocytosis has improved greatly ID consult on 02/15, recommends removal of mesh or life long antibiotics, change to cephalexin 2 gms iv q8 could eventually transition to oral Keflex. Patient will likely be in a rehab situation postdischarge which can be continued with close oversight to her wound by Dr Morton, given sensitivities did change to po Doxycycline Currently awaiting placement, now delayed due to covid test + status Given that appeared to be a suture granuloma, will continue antibiotics with no stop and have a post discharge 1 week followup with Gen surgery. anticipate disposition to [facility] facility on 818 (2) Atrial fibrillation: Plan: Chronic atrial fibrillation Xarelto for anticoagulation Continues to be rate controlled with metoprolol H/o chronic diastolic heart failure, stable typically sees Dr Lopez (3) Ambulatory dysfunction: Plan: Likely her issues are Multifactorial with morbid obesity, spinal stenosis, diabetic peripheral neuropathy as well as acute metabolic encephalopathy CT head negative TSH (recently performed in October and WN) Spinal stenosis with fall no pain at this time even after stopping muscle relaxant PT/OT, consider placement for inpatient rehab (4) Polyneuropathy: Plan: Patient not complaining of any pain we will hold medications at this time that could be clouding her mental sensorium (5) Sleep apnea: Plan: CPAP HS (6) COVID: Plan: incidental covid test, no clinical symptoms, continue supportive care and isoloation per policy Plan VTE Prophylaxis - Xarelto Patient made full admission due to metabolic encephalopathy secondary to panniculitis Had Peer to Peer appeal denied for rehab, patient will be working on placement for SNF, now delayed due to covid test + status Admission and Anticipated Discharge Date Admission Date: February 11, 2023 Subjective patient completely back to her baseline in the pm of 02/27 her abdominal pannus area did have some blood discharge, today this has stopped Pt found to have Covid + pre discharge testing, could be from october this year covid infection, snf wants to delay transfer for isolation Physical Exam Physical Exam: patient is alert and oriented can converse to me plan of care lungs are clear pannus examined, dressing has some discoloring, open area has granulation tissue, no erythma, no pain, nothing able to be expressed Results & Data Results & Data Vital Signs (Past 12 Hours) Vital Signs Temp Pulse Resp BP Pulse Ox O2 Del Method 02/28/23 14:41 97.9 F 62 16 138/75 94 Room Air 02/28/23 13:41 64 106/71 02/28/23 08:18 71 02/28/23 07:49 98.1 F 58 L 16 140/75 94 Room Air PG Care Time/CCT Total # of Minutes Spent Total Time Spent with Patient: Total time spent is greater than 50% in coordination of care (as documented) at patient's floor/unit and/or counseling patient: Coding Level of Care Code 38356 SUB INP/OBS CARE 2/35MIN Diagnoses Encephalopathy G93.40 Atrial fibrillation I48.91 Ambulatory dysfunction R26.2 Polyneuropathy G62.9 Sleep apnea G47.30 COVID U07.1
[2023-02-28] MEDS: PREGABALIN 150 MG CAP PO SCH (20:18)
[2023-02-28] MEDS: DULoxetine HCL 60 MG CAP PO SCH (20:20)
[2023-03-01] MEDS: traMADol HCL 50 MG TABLET PO PRN ×4 (02:46→21:19)
[2023-03-01] MEDS: LEVOTHYROXINE SODIUM 150 MCG TABLET PO SCH (06:26)
[2023-03-01] MEDS: ACETAMINOPHEN 500 MG TAB PO PRN (06:42)
[2023-03-01] MEDS: INSULIN ASPART PER UNIT CHARGE SC SCH ×4 (08:51→22:00)
[2023-03-01] MEDS: PREGABALIN 75 MG CAP PO SCH ×2 (09:01→14:54)
[2023-03-01] MEDS: hydrALAZINE HCL 25 MG TAB PO SCH ×3 (09:01→21:19)
[2023-03-01] MEDS: amLODIPine BESYLATE 5 MG TAB PO SCH ×2 (09:02→21:19)
[2023-03-01] MEDS: DOXYCYCLINE HYCLATE 100 MG CAP PO SCH ×2 (09:02→21:20)
[2023-03-01] MEDS: METOPROLOL TARTRATE 25 MG TAB PO SCH ×2 (09:02→21:20)
[2023-03-01] MEDS: guaiFENesin 600 MG TABCR PO SCH ×2 (09:03→21:20)
[2023-03-01] MEDS: PANTOprazole 40 MG TAB PO SCH (09:03)
[2023-03-01] MEDS: FUROSEMIDE 20 MG TAB PO SCH (09:03)
[2023-03-01] MEDS: RIVAROXABAN 15 MG TAB PO SCH (09:03)
[2023-03-01] MEDS: THIAMINE HCL 50 MG TABLET PO SCH (09:04)
[2023-03-01] MEDS: POLYETHYLENE (MIRALAX) 17 GM PACK PO PRN (09:08)
[2023-03-01] MEDS: FENOFIBRATE NANOCRYSTALLIZED 145 MG TABLET PO SCH (12:42)
[2023-03-01] MEDS: CINACALCET HCL 30 MG TAB PO SCH (12:42)
[2023-03-01] MEDS: LOSARTAN POTASSIUM 50 MG TAB PO SCH (14:54)
--- NOTE | 2023-03-01 17:18 | Hospitalist Progress Note ---
Date of Service March 01, 2023 Assessment & Plan (1) Encephalopathy: Plan: Patient presenting with worsening confusion and encephalopathy which liekly was toxic encephalopathy as she is on muscle relaxants and metabolic encephalopathy from panniculitis had previous umbilical hernia repair site. previously stitch removed from wound with now presumption this was stitch granuloma, opened skin and secondarily infected from staph, surgery will follow as outpt and will recommend antibiotics continues, dishcarge 02/27, now stable With regard to toxic encephalopathy improved as medications were held, lyrica dose reduced CT scan was obtained and was unremarkable for any acute changes in her head Leukocytosis secondary panniculitis with fluid collection, leukocytosis has improved greatly ID consult on 02/15, recommends removal of mesh or life long antibiotics, change to cephalexin 2 gms iv q8 could eventually transition to oral Keflex. Patient will likely be in a rehab situation postdischarge which can be continued with close oversight to her wound by Dr Morton, given sensitivities did change to po Doxycycline Currently awaiting placement, now delayed due to covid test + status Given that appeared to be a suture granuloma, will continue antibiotics with no stop and have a post discharge 1 week followup with Gen surgery. anticipate disposition to shelter facility on 818 (2) Atrial fibrillation: Plan: Chronic atrial fibrillation Xarelto for anticoagulation Continues to be rate controlled with metoprolol H/o chronic diastolic heart failure, stable typically sees Dr Lopez (3) Ambulatory dysfunction: Plan: Likely her issues are Multifactorial with morbid obesity, spinal stenosis, diabetic peripheral neuropathy as well as acute metabolic encephalopathy CT head negative TSH (recently performed in October and WN) Spinal stenosis with fall no pain at this time even after stopping muscle relaxant PT/OT, consider placement for inpatient rehab (4) Polyneuropathy: Plan: Patient not complaining of any pain we will hold medications at this time that could be clouding her mental sensorium (5) Sleep apnea: Plan: CPAP HS (6) COVID: Plan: incidental covid test, no clinical symptoms, continue supportive care and isoloation per policy Plan VTE Prophylaxis - Xarelto Patient made full admission due to metabolic encephalopathy secondary to panniculitis Had Peer to Peer appeal denied for rehab, patient will be working on placement for SNF, now delayed due to covid test + status Admission and Anticipated Discharge Date Admission Date: February 11, 2023 Subjective patient completely back to her baseline in the pm of 02/27 her abdominal pannus area did have some blood discharge, today this has stopped Pt found to have Covid + pre discharge testing, could be from october this year covid infection, snf wants to delay transfer for isolation Physical Exam Physical Exam: patient is alert and oriented can converse to me plan of care lungs are clear pannus examined, dressing has some discoloring, open area has granulation tissue, no erythma, no pain, nothing able to be expressed Results & Data Results & Data Vital Signs (Past 12 Hours) Vital Signs Temp Pulse Resp BP Pulse Ox O2 Del Method 03/01/23 15:13 97.0 F L 55 L 18 115/73 94 Room Air 03/01/23 08:02 97.7 F 76 19 149/81 H 95 Room Air PG Care Time/CCT Total # of Minutes Spent Total Time Spent with Patient: Total time spent is greater than 50% in coordination of care (as documented) at patient's floor/unit and/or counseling patient: Coding Level of Care Code 64726 SUB INP/OBS CARE 1/25MIN Diagnoses Encephalopathy G93.40 Atrial fibrillation I48.91 Ambulatory dysfunction R26.2 Polyneuropathy G62.9 Sleep apnea G47.30 COVID U07.1
[2023-03-01] MEDS: PREGABALIN 150 MG CAP PO SCH (21:20)
[2023-03-01] MEDS: DULoxetine HCL 60 MG CAP PO SCH (21:20)
[2023-03-02] MEDS: LEVOTHYROXINE SODIUM 150 MCG TABLET PO SCH (06:01)
[2023-03-02] MEDS: traMADol HCL 50 MG TABLET PO PRN ×2 (06:07→20:55)
[2023-03-02] MEDS: INSULIN ASPART PER UNIT CHARGE SC SCH ×4 (08:37→21:06)
[2023-03-02] MEDS: guaiFENesin 600 MG TABCR PO SCH ×2 (09:06→20:56)
[2023-03-02] MEDS: METOPROLOL TARTRATE 25 MG TAB PO SCH ×2 (09:06→20:56)
[2023-03-02] MEDS: DOXYCYCLINE HYCLATE 100 MG CAP PO SCH ×2 (09:06→20:57)
[2023-03-02] MEDS: amLODIPine BESYLATE 5 MG TAB PO SCH ×2 (09:06→20:56)
[2023-03-02] MEDS: THIAMINE HCL 50 MG TABLET PO SCH (09:06)
[2023-03-02] MEDS: FUROSEMIDE 20 MG TAB PO SCH (09:06)
[2023-03-02] MEDS: RIVAROXABAN 15 MG TAB PO SCH (09:07)
[2023-03-02] MEDS: PANTOprazole 40 MG TAB PO SCH (09:07)
[2023-03-02] MEDS: hydrALAZINE HCL 25 MG TAB PO SCH ×3 (09:07→20:54)
[2023-03-02] MEDS: PREGABALIN 75 MG CAP PO SCH ×2 (09:10→13:02)
[2023-03-02] MEDS: POLYETHYLENE (MIRALAX) 17 GM PACK PO PRN (09:10)
[2023-03-02] MEDS: LOSARTAN POTASSIUM 50 MG TAB PO SCH (13:02)
[2023-03-02] MEDS: FENOFIBRATE NANOCRYSTALLIZED 145 MG TABLET PO SCH (13:02)
[2023-03-02] MEDS: CINACALCET HCL 30 MG TAB PO SCH (13:02)
--- NOTE | 2023-03-02 18:08 | Hospitalist Progress Note ---
Date of Service March 02, 2023 Assessment & Plan (1) Encephalopathy: Plan: Patient presenting with worsening confusion and encephalopathy which liekly was toxic encephalopathy as she is on muscle relaxants and metabolic encephalopathy from panniculitis had previous umbilical hernia repair site. With regard to toxic encephalopathy resolved as medications were held, lyrica dose reduced CT scan was obtained and was unremarkable for any acute changes in her head Leukocytosis secondary panniculitis with fluid collection, leukocytosis has improved greatly previously stitch removed from wound with now presumption this was stitch granuloma, opened skin and secondarily infected from staph, surgery will follow as outpt and will recommend antibiotics continues, wound covered with dry sterile dressing ID consult on 02/15, recommends removal of mesh or life long antibiotics, change to cephalexin 2 gms iv q8 could eventually transition to oral Keflex. Patient will likely be in a rehab situation postdischarge which can be continued with close oversight to her wound by Dr Morton, given sensitivities did change to po Doxycycline Currently awaiting placement, now delayed due to covid test + status Given that appeared to be a suture granuloma, will continue antibiotics with no stop and have a post discharge 1 week followup with Gen surgery. Tentative time for COVID isolation to will be March 08, 2023 (2) Atrial fibrillation: Plan: Chronic atrial fibrillation Xarelto for anticoagulation Continues to be rate controlled with metoprolol H/o chronic diastolic heart failure, stable typically sees Dr Lopez (3) Ambulatory dysfunction: Plan: Likely her issues are Multifactorial with morbid obesity, spinal stenosis, diabetic peripheral neuropathy as well as acute metabolic encephalopathy CT head negative TSH (recently performed in October and ) Spinal stenosis with fall no pain at this time even after stopping muscle relaxant PT/OT, consider placement for inpatient rehab (4) Polyneuropathy: Plan: Patient not complaining of any pain we will hold medications at this time that could be clouding her mental sensorium (5) Sleep apnea: Plan: CPAP HS (6) COVID: Plan: incidental covid test, no clinical symptoms, continue supportive care and isoloation per policy Plan VTE Prophylaxis - Xarelto Patient made full admission due to metabolic encephalopathy secondary to panniculitis Had Peer to Peer appeal denied for rehab, patient will be working on placement for SNF, now delayed due to covid test + status Admission and Anticipated Discharge Date Admission Date: February 11, 2023 Subjective patient completely back to her baseline in the pm of 02/27 her abdominal pannus area did have some blood discharge, there continues to be slight discharge on gauze every day we will try Xeroform treatment at this time Pt found to have Covid + pre discharge testing, could be from october this year covid infection, snf wants to delay transfer for isolation Physical Exam Physical Exam: patient is alert and oriented can converse to me plan of care lungs are clear pannus examined, dressing has some discoloring, open area has granulation tissue, no erythma, no pain, nothing able to be expressed Results & Data Results & Data Vital Signs (Past 12 Hours) Vital Signs Temp Pulse Resp BP BP Pulse Ox O2 Del Method 03/02/23 15:29 97.9 F 79 18 135/71 94 Room Air 03/02/23 08:00 Room Air, CPAP 03/02/23 08:21 97.7 F 68 14 134/74 96 Room Air PG Care Time/CCT Total # of Minutes Spent Total Time Spent with Patient: Total time spent is greater than 50% in coordination of care (as documented) at patient's floor/unit and/or counseling patient: Coding Level of Care Code 49657 SUB INP/OBS CARE 1/25MIN Diagnoses Encephalopathy G93.40 Atrial fibrillation I48.91 Ambulatory dysfunction R26.2 Polyneuropathy G62.9 Sleep apnea G47.30 COVID U07.1
[2023-03-02] MEDS: PREGABALIN 150 MG CAP PO SCH (20:54)
[2023-03-02] MEDS: DULoxetine HCL 60 MG CAP PO SCH (20:58)
[2023-03-02] MEDS: ACETAMINOPHEN 500 MG TAB PO PRN (23:21)
[2023-03-03 00:36] LABS: Appearance Urine Cloudy (Clear); Bacteria Urine Automated Negative (Negative); Bilirubin Urine Negative (Negative); Blood Urine Negative (Negative); Color Urine Yellow; Epithelial Cell Urine Auto >30 /lpf (0-5); Glucose Urine UA Negative (Negative); Ketones Urine Negative (Negative); Leukocyte Esterase Urine 3+ (Negative); Nitrite Urine Negative (Negative); Protein Urine 1+ (Negative); RBC Urine Automated 0-4 /hpf (0-4); Urobilinogen Urine Negative (Negative); WBC Urine Automated >30 /hpf (0-5); pH Urine 5.5 (4.5-7.5)
[2023-03-03] MEDS: traMADol HCL 50 MG TABLET PO PRN ×4 (02:56→21:21)
[2023-03-03] MEDS: ACETAMINOPHEN 500 MG TAB PO PRN ×2 (04:41→13:14)
[2023-03-03] MEDS: LEVOTHYROXINE SODIUM 150 MCG TABLET PO SCH (06:05)
[2023-03-03] MEDS: INSULIN ASPART PER UNIT CHARGE SC SCH ×4 (09:13→21:30)
[2023-03-03] MEDS: guaiFENesin 600 MG TABCR PO SCH ×2 (09:18→21:21)
[2023-03-03] MEDS: PREGABALIN 75 MG CAP PO SCH ×2 (09:18→13:11)
[2023-03-03] MEDS: DOXYCYCLINE HYCLATE 100 MG CAP PO SCH ×2 (09:18→21:20)
[2023-03-03] MEDS: THIAMINE HCL 50 MG TABLET PO SCH (09:19)
[2023-03-03] MEDS: RIVAROXABAN 15 MG TAB PO SCH (09:19)
[2023-03-03] MEDS: hydrALAZINE HCL 25 MG TAB PO SCH ×3 (09:19→21:21)
[2023-03-03] MEDS: FUROSEMIDE 20 MG TAB PO SCH (09:20)
[2023-03-03] MEDS: amLODIPine BESYLATE 5 MG TAB PO SCH ×2 (09:20→21:21)
[2023-03-03] MEDS: PANTOprazole 40 MG TAB PO SCH (09:21)
[2023-03-03] MEDS: METOPROLOL TARTRATE 25 MG TAB PO SCH ×2 (09:23→21:20)
[2023-03-03] MEDS: CINACALCET HCL 30 MG TAB PO SCH (13:11)
[2023-03-03] MEDS: FENOFIBRATE NANOCRYSTALLIZED 145 MG TABLET PO SCH (13:12)
[2023-03-03] MEDS: LOSARTAN POTASSIUM 50 MG TAB PO SCH (13:12)
--- NOTE | 2023-03-03 15:03 | Hospitalist Progress Note ---
Date of Service March 03, 2023 Assessment & Plan (1) Encephalopathy: Plan: Patient presenting with worsening confusion and encephalopathy which liekly was toxic encephalopathy as she was on muscle relaxants and metabolic encephalopathy from panniculitis had previous umbilical hernia repair site. With regard to toxic encephalopathy resolved as medications were held, lyrica dose reduced CT scan was obtained and was unremarkable for any acute changes in her head Leukocytosis secondary panniculitis with fluid collection, leukocytosis resolved Dr Morton removed stitch at bedsdide from wound with now presumption this was stitch granuloma, opened skin and secondarily infected from staph, Dr Morton recommends prolongued antibiotic course, approx two weeks with surgical re evaluation at that time, this is contrary to ID consult as below, would recommend continued doxycycline at snf and outpt follow up with General surgery ID consult on 02/15, recommends removal of mesh or life long antibiotics, change to cephalexin 2 gms iv q8 could eventually transition to oral Keflex. Patient will likely be in a rehab situation postdischarge which can be continued with close oversight to her wound by Dr Morton, given sensitivities did change to po Doxycycline Currently awaiting placement, now delayed due to covid test + status Given that appeared to be a suture granuloma, will continue antibiotics with no stop and have a post discharge 1 week followup with Gen surgery. Tentative time for COVID isolation to will be March 08, 2023 (2) Atrial fibrillation: Plan: Chronic atrial fibrillation Xarelto for anticoagulation Continues to be rate controlled with metoprolol H/o chronic diastolic heart failure, stable typically sees Dr Lopez (3) Ambulatory dysfunction: Plan: Likely her issues are Multifactorial with morbid obesity, spinal stenosis, diabetic peripheral neuropathy as well as acute metabolic encephalopathy CT head negative TSH (recently performed in October and WN) Spinal stenosis with fall no pain at this time even after stopping muscle relaxant PT/OT, consider placement for inpatient rehab (4) Polyneuropathy: Plan: Patient not complaining of any pain we will hold medications at this time that could be clouding her mental sensorium (5) Sleep apnea: Plan: CPAP HS (6) COVID: Plan: incidental covid test, no clinical symptoms, continue supportive care and isoloation per policy Plan VTE Prophylaxis - Xarelto Patient made full admission due to metabolic encephalopathy secondary to panniculitis Had Peer to Peer appeal denied for rehab, patient will be working on placement for SNF, now delayed due to covid test + status Admission and Anticipated Discharge Date Admission Date: February 11, 2023 Subjective patient completely back to her baseline in the pm of 02/27 her abdominal pannus area did have some blood discharge, there continues to be slight discharge on gauze every day we will try Xeroform treatment at this time Pt found to have Covid + pre discharge testing, could be from october this year covid infection, snf wants to delay transfer for isolation tenative transfer 03/08 Physical Exam Physical Exam: patient is alert and oriented can converse to me plan of care lungs are clear pannus examined, dressing has some discoloring, open area has granulation tissue, no erythma, no pain, nothing able to be expressed Results & Data Results & Data Vital Signs (Past 12 Hours) Vital Signs Temp Pulse Resp BP Pulse Ox O2 Del Method 03/03/23 09:00 Room Air 03/03/23 09:22 65 03/03/23 08:36 98.1 F 58 L 18 153/78 H 93 Room Air PG Care Time/CCT Total # of Minutes Spent Total Time Spent with Patient: Total time spent is greater than 50% in coordination of care (as documented) at patient's floor/unit and/or counseling patient: Coding Level of Care Code None Diagnoses Encephalopathy G93.40 Atrial fibrillation I48.91 Ambulatory dysfunction R26.2 Polyneuropathy G62.9 Sleep apnea G47.30 COVID U07.1
[2023-03-03] MEDS: DULoxetine HCL 60 MG CAP PO SCH (21:20)
[2023-03-03] MEDS: PREGABALIN 150 MG CAP PO SCH (21:30)
[2023-03-04] MEDS: LEVOTHYROXINE SODIUM 150 MCG TABLET PO SCH (05:47)
[2023-03-04] MEDS: hydrALAZINE HCL 25 MG TAB PO SCH ×3 (09:33→20:27)
[2023-03-04] MEDS: PREGABALIN 75 MG CAP PO SCH ×2 (09:33→13:50)
[2023-03-04] MEDS: DOXYCYCLINE HYCLATE 100 MG CAP PO SCH (09:33)
[2023-03-04] MEDS: INSULIN ASPART PER UNIT CHARGE SC SCH ×4 (09:34→20:21)
[2023-03-04] MEDS: guaiFENesin 600 MG TABCR PO SCH ×2 (09:34→20:27)
[2023-03-04] MEDS: METOPROLOL TARTRATE 25 MG TAB PO SCH ×2 (09:34→20:27)
[2023-03-04] MEDS: amLODIPine BESYLATE 5 MG TAB PO SCH ×2 (09:36→20:28)
[2023-03-04] MEDS: PANTOprazole 40 MG TAB PO SCH (09:37)
[2023-03-04] MEDS: FUROSEMIDE 20 MG TAB PO SCH (09:38)
[2023-03-04] MEDS: THIAMINE HCL 50 MG TABLET PO SCH (09:38)
[2023-03-04] MEDS: RIVAROXABAN 15 MG TAB PO SCH (09:38)
[2023-03-04] MEDS: traMADol HCL 50 MG TABLET PO PRN ×3 (10:54→23:58)
--- NOTE | 2023-03-04 12:54 | Hospitalist Progress Note ---
Date of Service March 04, 2023 Assessment & Plan (1) Encephalopathy: Plan: Patient presenting with worsening confusion and encephalopathy which liekly was toxic encephalopathy as she was on muscle relaxants and metabolic encephalopathy from panniculitis had previous umbilical hernia repair site. With regard to toxic encephalopathy resolved as medications were held, lyrica dose reduced CT scan was obtained and was unremarkable for any acute changes in her head Leukocytosis secondary panniculitis with fluid collection, leukocytosis resolved Dr Morton removed stitch at bedsdide from wound with now presumption this was stitch granuloma, opened skin and secondarily infected from staph, Dr Morton recommends prolongued antibiotic course, approx two weeks with surgical re evaluation at that time, this is contrary to ID consult as below, would recommend continued doxycycline at snf and outpt follow up with General surgery ID consult on 02/15, recommends removal of mesh or life long antibiotics, change to cephalexin 2 gms iv q8 could eventually transition to oral Keflex. Patient will likely be in a rehab situation postdischarge which can be continued with close oversight to her wound by Dr Morton, given sensitivities did change to po Doxycycline Currently awaiting placement, now delayed due to covid test + status -Patient is doing well. Initially reported as hypoxic in the morning, on bedside assessment poor waveform to pulse ox with cold hands. On adjustment of pulse oximeter patient is 97% on room air. As such duration not indicated, no CXR indicated at this time. No interval test between October and current COVID PC R test, may represent prolonged positive PCR test versus reinfection, given absence of symptoms suspect reinfection is unlikely Anticipate placement available 03/08, patient updated about - Given that appeared to be a suture granuloma, will continue antibiotics with no stop and have a post discharge 1 week followup with Gen surgery. Tentative time for COVID isolation to will be March 08, 2023 (2) Atrial fibrillation: Plan: Chronic atrial fibrillation Xarelto for anticoagulation Continues to be rate controlled with metoprolol H/o chronic diastolic heart failure, stable typically sees Dr Lopez (3) Ambulatory dysfunction: Plan: Likely her issues are Multifactorial with morbid obesity, spinal stenosis, diabetic peripheral neuropathy as well as acute metabolic encephalopathy CT head negative TSH (recently performed in October and WNL) Spinal stenosis with fall no pain at this time even after stopping muscle relaxant PT/OT, pending placement suspect available 02/28 (4) Polyneuropathy: Plan: Patient not complaining of any pain, doing well with hold of sedating medications as no (5) Sleep apnea: Plan: CPAP HS (6) COVID: Plan: incidental covid test, no clinical symptoms, continue supportive care and isoloation per policy. See hypoxia note above Plan VTE Prophylaxis - Xarelto Patient made full admission due to metabolic encephalopathy secondary to panniculitis Had Peer to Peer appeal denied for rehab, patient will be working on placement for SNF, now delayed due to covid test + status but anticipated be available 03/08 Admission and Anticipated Discharge Date Admission Date: February 11, 2023 Subjective Seen at the bedside. Feels well. Is eager to get out of the hospital, is aware placement is pending due to COVID. Per case management anticipate 03/08. She reports she feels well and has no symptoms/concerns at time of morning visit. Specific denies fever, chills, sweats, abdominal pain, chest pressure, cough. Abdomen feels like it is doing well since the suture was fished out. Tolerating Doxy well, no stomach upset Review of Systems Review of Systems: All systems reviewed & are unremarkable except as noted in Subjective Physical Exam Physical Exam: General: A&Ox3. NAD. Cooperative. HEENT: Atraumatic, normocephalic. Pupils equal and reactive to Pulm: CTAB A&P. -wheezes, -rales, -rhonchi. Symmetrical chest rise. No increased work of breathing. No respiratory distress. Cardiac: RRR, -mrg. Radial pulses intact and symmetrical. Abdominal: Firm approximately 1 center open area with granulation tissue on the midline at the mass at site of panniculitis. No warmth, erythema, tenderness. No discharge. Abdomen is otherwise soft and without rebound Results & Data Results & Data Vital Signs (Past 12 Hours) Vital Signs Pulse Ox O2 Del Method 03/04/23 09:00 97 Room Air PG Care Time/CCT Total # of Minutes Spent Total Time Spent with Patient: Total time spent is greater than 50% in coordination of care (as documented) at patient's floor/unit and/or counseling patient: Coding Level of Care Code 79018 SUB INP/OBS CARE 3/50MIN Diagnoses Encephalopathy G93.40 Atrial fibrillation I48.91 Ambulatory dysfunction R26.2 Polyneuropathy G62.9 Sleep apnea G47.30 COVID U07.1
[2023-03-04] MEDS: CINACALCET HCL 30 MG TAB PO SCH (13:50)
[2023-03-04] MEDS: FENOFIBRATE NANOCRYSTALLIZED 145 MG TABLET PO SCH (13:51)
[2023-03-04] MEDS: LOSARTAN POTASSIUM 50 MG TAB PO SCH (13:51)
[2023-03-04] MEDS: CEFEPIME 2,000 MG in SYRINGE 0 ML IV SCH ×2 (18:06→20:26)
[2023-03-04] MEDS: DULoxetine HCL 60 MG CAP PO SCH (20:27)
[2023-03-04] MEDS: PREGABALIN 150 MG CAP PO SCH (20:27)
[2023-03-05] MEDS ORDERED: Nursing to Pharmacy Communication SCH (01:00)
[2023-03-05] MEDS: ACETAMINOPHEN 500 MG TAB PO PRN (02:32)
[2023-03-05] MEDS: LEVOTHYROXINE SODIUM 150 MCG TABLET PO SCH (05:46)
[2023-03-05] MEDS: traMADol HCL 50 MG TABLET PO PRN ×3 (05:48→21:22)
[2023-03-05] MEDS: INSULIN ASPART PER UNIT CHARGE SC SCH ×4 (08:10→22:20)
[2023-03-05] MEDS: CEFEPIME 2,000 MG in SYRINGE 0 ML IV SCH ×2 (08:38→21:22)
[2023-03-05] MEDS: hydrALAZINE HCL 25 MG TAB PO SCH ×3 (08:38→21:24)
[2023-03-05] MEDS: METOPROLOL TARTRATE 25 MG TAB PO SCH ×2 (08:39→21:24)
[2023-03-05] MEDS: guaiFENesin 600 MG TABCR PO SCH ×2 (08:39→21:23)
[2023-03-05] MEDS: DOXYCYCLINE HYCLATE 100 MG CAP PO SCH ×2 (08:40→21:23)
[2023-03-05] MEDS: PANTOprazole 40 MG TAB PO SCH (08:40)
[2023-03-05] MEDS: amLODIPine BESYLATE 5 MG TAB PO SCH ×2 (08:40→21:22)
[2023-03-05] MEDS: FUROSEMIDE 20 MG TAB PO SCH (08:41)
[2023-03-05] MEDS: THIAMINE HCL 50 MG TABLET PO SCH (08:41)
[2023-03-05] MEDS: RIVAROXABAN 15 MG TAB PO SCH (08:41)
[2023-03-05] MEDS: PREGABALIN 75 MG CAP PO SCH ×2 (09:01→13:28)
[2023-03-05 10:12] LABS: Basophils # (auto) 0.07 K/uL (0.00-0.20); Basophils % (auto) 1.2 %; Eosinophils # (auto) 0.12 K/uL (0.00-0.50); Eosinophils % (auto) 2.1 %; Hematocrit (blood only) 36.3 % (37.0-47.0); Hemoglobin 11.8 g/dl (12.0-16.0); Immature Granulocytes # (auto) 0.02 K/uL (0.01-0.20); Immature Granulocytes % (auto) 0.3 %; Lymphocytes # (auto) 0.83 K/uL (1.20-3.40); Lymphocytes % (auto) 14.4 %; Mean Corpuscular Hemoglobin 27.9 pg (25.0-34.0); Mean Corpuscular Hgb Conc 32.5 g/dL (32.0-36.0); Mean Corpuscular Volume 85.8 fL (80.0-100.0); Mean Platelet Volume 11.1 fL (9.4-12.4); Monocytes # (auto) 0.64 K/uL (0.11-0.59); Monocytes % (auto) 11.1 %; Neutrophils # (auto) 4.09 K/uL (1.40-6.50); Neutrophils % (auto) 70.9 %; Platelet Count 275 K/uL (130-400); RDW Coefficient of Variation 14.4 % (11.5-14.5); RDW Standard Deviation 44.5 fL (36.4-46.3); Red Blood Count 4.23 M/uL (4.20-5.40); White Blood Count 5.77 K/ul (4.8-10.8)
--- NOTE | 2023-03-05 10:35 | Hospitalist Progress Note ---
Date of Service March 05, 2023 Assessment & Plan (1) Encephalopathy: Plan: Patient presented with worsening confusion and encephalopathy which likely was toxic encephalopathy as she was on muscle relaxants and metabolic encephalopathy from panniculitis at previous umbilical hernia repair site CT scan was obtained and was unremarkable for any acute changes Leukocytosis secondary to panniculitis with fluid collection, has resolved Dr Morton removed stitch at bedside from wound with now possibility that this was stitch granuloma, opened skin and secondarily infected from staph, Dr Morton recommends prolonged antibiotic course, approx two weeks with surg ical re evaluation at that time ID consult on 02/15, recommends removal of mesh or life long antibiotics, change to cephalexin 2g iv q8 could eventually transition to oral Keflex Patient on 03/05 requested second opinion from surgical provider regarding if she needs mesh removal Anticipate placement available 03/08 (due to positive COVID test and COVID isolation will end on that day), patient updated (2) Atrial fibrillation: Plan: Chronic atrial fibrillation Xarelto for anticoagulation Continues to be rate controlled with metoprolol H/o chronic diastolic heart failure, stable Typically sees Dr Lopez (3) Ambulatory dysfunction: Plan: Likely her issues are multifactorial with morbid obesity, spinal stenosis, diabetic peripheral neuropathy as well as acute metabolic encephalopathy CT head negative TSH (recently performed in October and ) normal Spinal stenosis with fall no pain at this time even after stopping muscle relaxant PT/OT, pending placement suspect available 03/08 (4) Polyneuropathy: Plan: Patient not complaining of any pain, doing well with hold of sedating medications (5) Sleep apnea: Plan: CPAP HS (6) COVID: Plan: incidental COVID test, no clinical symptoms, continue supportive care and isolation per policy until 03/08 (7) NATASHA (acute kidney injury): Plan: Creatinine baseline ~1.4, today was 1.7 without clear evidence of volume contraction Holding losartan and furosemide, repeat creatinine tomorrow Plan VTE Prophylaxis - Xarelto; may need to switch to therapeutic Lovenox if plan for surgery becomes necessary Patient made full admission due to metabolic encephalopathy secondary to panniculitis Had Peer to Peer appeal denied for rehab, patient will be working on placement for SNF, now delayed due to COVID test + status but anticipated be available 03/08 Admission and Anticipated Discharge Date Admission Date: February 11, 2023 Subjective Seen at bedside, doing fairly well with ambulating, still with a lot of drainage from abdominal wound, no worse than yesterday she reports. She is feeling nervous about her outpatient follow up and requests another surgical opinion regarding her mesh. Review of Systems Review of Systems: All systems reviewed & are unremarkable except as noted in Subjective Physical Exam Constitutional: WD/WN, vitals as above Respiratory: normal respiratory effort, lungs clear to auscultation Cardiovascular: RRR, no murmur, no edema Gastrointestinal (Abdomen): normal bowel sounds, soft, nontender, no hepatosplenomegaly Skin: no rashes, warm and dry firm 1cm wound in mid-lower abdomen with yellow drainage noted, nontender, no surrounding erythema Psychiatric: A+Ox3, euthymic affect Results & Data Results & Data Vital Signs (Past 12 Hours) Vital Signs Temp Pulse Resp BP Pulse Ox O2 Del Method 03/05/23 09:00 Room Air 03/05/23 08:07 36.6 C 66 18 125/79 94 Room Air 03/05/23 06:16 78 124/77 PG Care Time/CCT Total # of Minutes Spent Total Time Spent with Patient: Total time spent is greater than 50% in coordination of care (as documented) at patient's floor/unit and/or counseling patient: Coding Level of Care Code 80878 SUB INP/OBS CARE 3/50MIN Diagnoses Encephalopathy G93.40 Atrial fibrillation I48.91 Ambulatory dysfunction R26.2 Polyneuropathy G62.9 Sleep apnea G47.30 COVID U07.1 NATASHA (acute kidney injury) N17.9
[2023-03-05 10:36] LABS: BUN Creatinine Ratio 30.6 (10-20); Calcium 9.6 mg/dl (8.6-10.3); Creatinine Clr Calc Pharmacy 37.7 ml/min; Est GFR (African American) 32.9 ml/min; Est GFR (African American) 33.1 ml/min; Est GFR (Non-African American) 28.4 ml/min; Est GFR (Non-African American) 28.6 ml/min; Potassium 4.1 mmol/L (3.5-5.1)
[2023-03-05] MEDS: CINACALCET HCL 30 MG TAB PO SCH (13:27)
[2023-03-05] MEDS: FENOFIBRATE NANOCRYSTALLIZED 145 MG TABLET PO SCH (13:27)
[2023-03-05] MEDS: LOSARTAN POTASSIUM 50 MG TAB PO SCH (13:27)
[2023-03-05] MEDS: DULoxetine HCL 60 MG CAP PO SCH (21:25)
[2023-03-05] MEDS: PREGABALIN 150 MG CAP PO SCH (21:47)
[2023-03-06] MEDS: ONDANSETRON 4 MG OD TAB PO PRN (00:17)
[2023-03-06] MEDS: traMADol HCL 50 MG TABLET PO PRN ×2 (04:34→19:49)
[2023-03-06] MEDS: LEVOTHYROXINE SODIUM 150 MCG TABLET PO SCH (06:14)
[2023-03-06 08:04] LABS: Hematocrit (blood only) 37.4 % (37.0-47.0); Hemoglobin 12.3 g/dl (12.0-16.0); Mean Corpuscular Hemoglobin 28.1 pg (25.0-34.0); Mean Corpuscular Hgb Conc 32.9 g/dL (32.0-36.0); Mean Corpuscular Volume 85.6 fL (80.0-100.0); Mean Platelet Volume 10.9 fL (9.4-12.4); Platelet Count 251 K/uL (130-400); RDW Coefficient of Variation 14.1 % (11.5-14.5); RDW Standard Deviation 44.1 fL (36.4-46.3); Red Blood Count 4.37 M/uL (4.20-5.40); White Blood Count 5.93 K/ul (4.8-10.8)
[2023-03-06 08:19] LABS: BUN Creatinine Ratio 31.3 (10-20); Creatinine Clr Calc Pharmacy 40.3 ml/min; Est GFR (African American) 35.7 ml/min; Est GFR (Non-African American) 30.8 ml/min; Potassium 4.5 mmol/L (3.5-5.1)
[2023-03-06] MEDS: INSULIN ASPART PER UNIT CHARGE SC SCH ×4 (08:27→22:47)
--- NOTE | 2023-03-06 08:36 | Hospitalist Progress Note ---
Date of Service March 06, 2023 Assessment & Plan (1) Encephalopathy: Plan: -Patient presented with worsening confusion and encephalopathy which likely was toxic encephalopathy as she was on muscle relaxants and metabolic encephalopathy from panniculitis at previous umbilical hernia repair site -CT Head was obtained and was unremarkable for any acute changes -Leukocytosis secondary to panniculitis with fluid collection, has resolved -Dr Morton removed stitch at bedside from wound with now possibility that this was stitch granuloma, opened skin and secondarily infected from staph, Dr Morton recommends prolonged antibiotic course, approx two weeks with surgical re-evaluation at that time -ID consult on 02/15, recommends removal of mesh or life long antibiotics -Patient on 03/05 requested second opinion from surgical provider regarding if she needs mesh removal, recommending and patient desirous of outpatient evaluation from [facility] -Anticipate placement available 03/08 (due to positive COVID test and COVID isolation will end on that day), patient updated (2) Atrial fibrillation: Plan: -Chronic atrial fibrillation -Xarelto for anticoagulation -Continues to be rate controlled with metoprolol -H/o chronic diastolic heart failure, stable -Typically sees Dr Lopez (3) Ambulatory dysfunction: Plan: -Likely her issues are multifactorial with morbid obesity, spinal stenosis, diabetic peripheral neuropathy as well as acute metabolic encephalopathy -CT head negative for CVA -TSH recently performed in October and WNL -Spinal stenosis with fall, no pain at this time, even after stopping muscle relaxant -PT/OT recommended rehab but this was denied by insurance, therefore pending placement to SNF, suspect available 03/08 (4) Polyneuropathy: Plan: -Patient not complaining of any pain, doing well with hold of sedating medicat ions (5) Sleep apnea: Plan: -CPAP HS (6) COVID: Plan: -Incidental COVID + test, no clinical symptoms, continue supportive care and isolation per policy until 03/08 (7) NATASHA (acute kidney injury): Plan: -Creatinine baseline ~1.4, NATASHA resolving with creatinine 1.6 today -Holding losartan and furosemide, repeat BMP tomorrow (8) UTI (urinary tract infection): Plan: >100k CFU Pseudomonas sensitive to cefepime, continue this through 03/11 given she was encephalopathic and given her pannus wound Plan VTE Prophylaxis - Xarelto; may need to switch to therapeutic Lovenox in the future if plan for surgery becomes necessary Patient made full admission due to metabolic encephalopathy secondary to panniculitis Had Peer to Peer appeal denied for rehab, patient for SNF placement now, delayed due to COVID test + but anticipated to be available 03/08 Will need cefepime 2g IV q12h to finish on 03/11/23 for Pseudomonas in urine, then will transition to oral doxycycline to cover abdominal wound, to continue until seen by General Surgery outpatient Admission and Anticipated Discharge Date Admission Date: February 11, 2023 Subjective No acute overnight events, Ni does not have complaints today, reports that she and her are thinking they want to get her to [facility] to get stronger for a few days and follow up with a hernia/mesh specialist in [place] in the outpatient setting. Review of Systems Review of Systems: All systems reviewed & are unremarkable except as noted in Subjective Physical Exam Constitutional: WD/WN, vitals as above Respiratory: normal respiratory effort, lungs clear to auscultation Cardiovascular: RRR, no murmur, no edema Gastrointestinal (Abdomen): normal bowel sounds, soft, nontender, no hepatosplenomegaly Skin: no rashes, warm and dry 1cm wound in mid-lower abdomen with yellow green drainage noted, nontender, no surrounding erythema Psychiatric: A+Ox3, euthymic affect Results & Data Results & Data Vital Signs (Past 12 Hours) Vital Signs Temp Pulse Resp BP Pulse Ox O2 Del Method 03/06/23 08:19 36.3 C L 74 17 111/70 93 Room Air 03/05/23 21:25 Room Air 03/05/23 21:23 36.5 C 63 20 116/80 95 Room Air 03/05/23 21:21 71 104/79 PG Care Time/CCT Total # of Minutes Spent Total Time Spent with Patient: Total time spent is greater than 50% in coordination of care (as documented) at patient's floor/unit and/or counseling patient: Coding Level of Care Code 16644 SUB INP/OBS CARE 2/35MIN Diagnoses Encephalopathy G93.40 Atrial fibrillation I48.91 Ambulatory dysfunction R26.2 Polyneuropathy G62.9 Sleep apnea G47.30 COVID U07.1 NATASHA (acute kidney injury) N17.9 UTI (urinary tract infection) N39.0
[2023-03-06] MEDS: PREGABALIN 75 MG CAP PO SCH ×2 (08:38→13:03)
[2023-03-06] MEDS: CEFEPIME 2,000 MG in SYRINGE 0 ML IV SCH ×2 (08:38→19:41)
[2023-03-06] MEDS: METOPROLOL TARTRATE 25 MG TAB PO SCH ×2 (08:39→19:44)
[2023-03-06] MEDS: amLODIPine BESYLATE 5 MG TAB PO SCH ×2 (08:39→19:43)
[2023-03-06] MEDS: guaiFENesin 600 MG TABCR PO SCH ×2 (08:40→19:42)
[2023-03-06] MEDS: hydrALAZINE HCL 25 MG TAB PO SCH ×3 (08:40→19:44)
[2023-03-06] MEDS: DOXYCYCLINE HYCLATE 100 MG CAP PO SCH ×2 (08:40→19:42)
[2023-03-06] MEDS: THIAMINE HCL 50 MG TABLET PO SCH (08:41)
[2023-03-06] MEDS: RIVAROXABAN 15 MG TAB PO SCH (08:41)
[2023-03-06] MEDS: PANTOprazole 40 MG TAB PO SCH (08:41)
--- NOTE | 2023-03-06 12:14 | Surgery Consultation ---
Date of Consultation March 06, 2023 Assessment & Plan (1) Abdominal wall abscess at site of surgical wound: discussed with pt that it is quite possible that she has mesh infection given that she continues to drain without improvement following suture removal by Dr. Morton. Currently, no cellulitis. I do not see that a CT scan of the area was done recently. Reviewed that I would recommend that she seek a surgical opinion at a larger hernia center given her complicated abdomen and multiple other medical issues such as morbid obesity and diabetes. With these medical issues, surgery would carry increased risks and it would be worthwhile to see what her other options would be to prevent hernia from recurring. She does have a lumpier area on the superior right lateral edge of the mesh - CT may be helpful to elucidate recurrence vs fluid collection. This area resolved with pressure. She is wondering about hyperbarics. Will defer this decision to hernia center. Will sign off - please call with questions. History of Present Illness Reason for Consultation: third surgical opinion regarding possible infected mesh Requesting Physician: Sweta Fernandes DO Attending Physician: Sweta Fernandes DO History of Present Illness 77 yr old woman with morbid obesity, diabetes, sleep apnea, recent admission for metabolic encephalopathy, history of hernia repairs x [address] Morton and: 1) imaging showing fistulous connection from skin/ mesh 2) chronic draining wound in mid lower abdomen - drains greenish fluid, did not improve after suture removed at bedside by Dr. Morton, tender at times Has outpatient f/u scheduled with Dr. Morton Has been seen by infectious disease who recommends either mesh removal or lifetime antibiotics Allergies Allergy/AdvReac Type Severity Reaction Status Date / Time Aminoglycosides Allergy Intermediate rash Verified 02/09/23 15:04 neomycin Allergy Intermediate RASH Verified 02/09/23 15:04 nickel Allergy Intermediate rash Verified 02/09/23 15:04 piroxicam Allergy Intermediate RASH Verified 02/09/23 15:04 polymyxin B Allergy Intermediate rash Verified 02/09/23 15:04 house dust Allergy Mild Sneezing Verified 02/09/23 15:04 oxycodone [From Roxicodone] AdvReac Mild Shakiness Verified 02/09/23 15:04 [id number] Reductase AdvReac Mild MUSCLE AND Verified 02/09/23 15:04 Inhibitor JOINT PAIN [Zuqucnw-Kaa-Jar Reductase Inhibitor] Home Medications Medication Instructions Recorded Confirmed Type albuterol sulfate 90 mcg/actuation 1 - 2 puffs inhalation Q4H PRN 06/15/19 02/09/23 Rx aerosol inhaler shortness of breath or wheezing #8.5 grams fluticasone propionate 50 1 spray intranasal DAILY PRN 06/05/20 02/09/23 History mcg/actuation nasal allergy symptoms spray,suspension (Flonase Allergy Relief) acetaminophen 500 mg tablet 1,000 mg PO Q8 PRN fever or pain 09/25/20 02/09/23 Rx #30 tabs thiamine HCl (vitamin B1) 50 mg 50 mg PO QAM #30 tabs 09/25/20 02/09/23 Rx tablet (Vitamin B-1) cinacalcet 30 mg tablet (Sensipar) 30 mg PO DAILY #90 tabs 10/28/20 02/09/23 Rx ipratropium 20 mcg-albuterol 100 1 puff inhalation Q4H PRN 10/28/20 02/09/23 Rx mcg/actuation mist for inhalation shortness of breath or wheezing #4 (Combivent Respimat) grams amlodipine 5 mg tablet 5 mg PO PM #90 tabs 05/13/21 02/09/23 Rx ibuprofen 600 mg tablet 600 mg PO TID PRN Pain 05/28/21 02/09/23 History furosemide 20 mg tablet 20 mg PO DAILY 09/15/21 02/09/23 History fluticasone propionate 110 1 puff inhalation BID PRN Wheezing 02/26/22 02/09/23 History mcg/actuation HFA aerosol inhaler (Flovent HFA) fenofibrate nanocrystallized 145 145 mg PO DAILY #90 tabs 05/26/22 02/09/23 Rx mg tablet hydralazine 25 mg tablet 25 mg PO TID #270 tabs 07/07/22 02/09/23 Rx rabeprazole 20 mg tablet,delayed 20 mg PO DAILY #30 tabs 07/20/22 02/09/23 Rx release (AcipHex) rivaroxaban 15 mg tablet 15 mg PO DAILY #30 tabs 07/20/22 02/09/23 Rx duloxetine 60 mg capsule,delayed 60 mg PO HS #90 caps 08/05/22 02/09/23 Rx release alpha lipoic acid 100 mg capsule 300 mg PO BID 08/17/22 02/09/23 History pen needle, diabetic 32 gauge x #100 ea 09/20/22 02/09/23 Rx 532" (BD Ultra-Fine Shanel Pen Needle) amlodipine 2.5 mg tablet 2.5 mg PO QAM 10/26/22 02/09/23 History ondansetron 4 mg disintegrating 4 mg PO Q8H PRN nausea and 12/11/22 02/09/23 Rx tablet vomiting #30 tabs pregabalin 75 mg capsule (Lyrica) 75 mg PO .COMPLEX #120 caps 12/24/22 02/09/23 Rx levothyroxine 150 mcg tablet 150 mcg PO DAILYBB #90 tabs 01/04/23 02/09/23 Rx insulin glargine 100 unit/mL (3 6 unit (0.06 mL) subcut HS 30 days 02/05/23 02/09/23 Rx mL) subcutaneous pen (Lantus #3 mL Solostar U-100 Insulin) chlorzoxazone 500 mg tablet 500 mg PO TID 02/09/23 02/09/23 History hydroxyzine HCl 25 mg tablet 50 mg PO HS PRN itching 02/09/23 02/09/23 History losartan 100 mg tablet 100 mg PO DAILY 02/09/23 02/09/23 History metoprolol tartrate 25 mg tablet 25 mg PO BID 02/09/23 02/09/23 History trazodone 50 mg tablet 50 mg PO HS 02/09/23 02/09/23 History triamcinolone acetonide 0.1 % 1 applic topical BID PRN .flare ups 02/09/23 02/09/23 History topical ointment doxycycline hyclate 100 mg capsule 100 mg PO BID 14 days #28 caps 02/26/23 Rx Patient History Medical History Acquired claw toe of left foot Acquired claw toe of right foot Acquired hallux valgus of right foot Allergic rhinitis Atrial fibrillation Atrial fibrillation with slow ventricular response Callus Chest pain Chronic back pain CKD (chronic kidney disease), stage III Controlled type 2 diabetes mellitus with neurologic complication, with long-term current use of insulin Degenerative disc disease Diabetic peripheral neuropathy Dysesthesia Dysphagia Fall Familial tremor GERD (gastroesophageal reflux disease) GERD (gastroesophageal reflux disease) Graves disease WITH RADIOACTIVE IODINE Hallux valgus (acquired), left foot Hypercalcemia Hyperlipidemia Hyperparathyroidism Hypertension Hypothyroidism Insomnia Loss of protective sensation of skin of deformed foot Microalbuminuria Morbid obesity Osteoarthritis Primary hyperparathyroidism Seborrheic keratosis Septicemia TREATED AT [facility] (BEGINNING OF 2017) AFFECTED RIGHT LEG. Sinus bradycardia Sleep apnea CPAP Toxic encephalopathy Type 2 diabetes mellitus with diabetic peripheral angiopathy without gangrene Surgical History Fusion of spine X3 L1-L5 History of adenoidectomy History of appendectomy LAP History of bilateral tubal ligation History of cataract surgery BILATERAL History of cholecystectomy LAP History of colonoscopy History of esophagogastroduodenoscopy (EGD) History of herniorrhaphy UMBILICAL REPAIR x 2 History of tonsillectomy History of total hip arthroplasty BILATERAL History of total knee replacement BILATERAL History of total shoulder replacement RIGHT Nausea and vomiting after administration of anesthetic agent Family History Father Family history of diabetes mellitus Arthritis Hypertension Stroke Lung disease Obesity Diabetes Mother Arthritis Diabetes Hypertension Stroke Obesity Depression Brother Depression Suicide Aunt Uterine cancer Grandfather (Maternal) Colorectal cancer Aunt Colorectal cancer Denies family history of Prostate cancer Myocardial infarction Breast cancer Social History Smoking Status: Never smoker Second Hand Exposure: No; Do You Dip or Chew Tobacco: No; Hx Alcohol Use: No Hx Substance Use: No Preferred Language: Ukrainian Communication Ability: Impaired Visual Impairment: Limited Hearing Ability: Normal 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 Beliefs That Will Affect Care: None marital status: Current Living Situation: Spouse current occupational status: retired Feels Safe at Home: Yes Childhood Exposure to Second-Hand Smoke: Yes Diet: diabetic and regular Dental Care, Regularly: Yes Physical Activity Frequency: 3-4 Times per Week Seatbelt Use: always Sunscreen Use: Yes Assistive Devices: Walker Physical Exam Constitutional: + morbidly obese uses walker Gastrointestinal (Abdomen): soft, 6 mm area of ulcerated skin with greenish drainage from center, tender over umbilical area There appears to be a lumpier region located superiorly and to the right of this tract Results & Data Vital Signs (Past 12 Hours) Vital Signs Temp Pulse Resp BP Pulse Ox O2 Del Method 03/06/23 08:19 36.3 C L 74 17 111/70 93 Room Air Laboratory Results 03/06/23 03/06/23 03/06/23 Range/Units 08:19 07:45 07:45 WBC 5.93 (4.8-10.8) K/ul RBC 4.37 (4.20-5.40) M/uL Hgb 12.3 (12.0-16.0) g/dl Hct 37.4 (37.0-47.0) % MCV 85.6 (80.0-100.0) fL MCH 28.1 (25.0-34.0) pg MCHC 32.9 (32.0-36.0) g/dL RDW Std Deviation 44.1 (36.4-46.3) fL RDW Coeff of Jeanette 14.1 (11.5-14.5) % Plt Count 251 (130-400) K/uL MPV 10.9 (9.4-12.4) fL Sodium 137 (136-145) mmol/L Potassium 4.5 (3.5-5.1) mmol/L Chloride 105 (98-107) mmol/L Carbon Dioxide 27 (21-32) mmol/L Anion Gap 5 (3-11) BUN 50 H (6-23) mg/dl Creatinine 1.60 H (0.6-1.2) mg/dl Est Cr Clr Drug Dosing 40.3 ml/min Est GFR ( Amer) 35.7 ml/min Est GFR (Non-Af Amer) 30.8 ml/min BUN/Creatinine Ratio 31.3 H (10-20) Glucose 108 H (70-99(Fasting)) mg/dl POC Glucose 95 (70-99) mg/dl Calcium 10.0 (8.6-10.3) mg/dl 03/05/23 03/05/23 03/05/23 Range/Units 21:09 17:00 12:12 WBC (4.8-10.8) K/ul RBC (4.20-5.40) M/uL Hgb (12.0-16.0) g/dl Hct (37.0-47.0) % MCV (80.0-100.0) fL MCH (25.0-34.0) pg MCHC (32.0-36.0) g/dL RDW Std Deviation (36.4-46.3) fL RDW Coeff of Jeanette (11.5-14.5) % Plt Count (130-400) K/uL MPV (9.4-12.4) fL Sodium (136-145) mmol/L Potassium (3.5-5.1) mmol/L Chloride (98-107) mmol/L Carbon Dioxide (21-32) mmol/L Anion Gap (3-11) BUN (6-23) mg/dl Creatinine (0.6-1.2) mg/dl Est Cr Clr Drug Dosing ml/min Est GFR ( Amer) ml/min Est GFR (Non-Af Amer) ml/min BUN/Creatinine Ratio (10-20) Glucose (70-99(Fasting)) mg/dl POC Glucose 107 H 104 H 103 H (70-99) mg/dl Calcium (8.6-10.3) mg/dl
[2023-03-06] MEDS: CINACALCET HCL 30 MG TAB PO SCH (13:04)
[2023-03-06] MEDS: FENOFIBRATE NANOCRYSTALLIZED 145 MG TABLET PO SCH (13:05)
[2023-03-06] MEDS: DULoxetine HCL 60 MG CAP PO SCH (19:43)
[2023-03-06] MEDS: PREGABALIN 150 MG CAP PO SCH (19:49)
[2023-03-07] MEDS: LEVOTHYROXINE SODIUM 150 MCG TABLET PO SCH (05:35)
[2023-03-07 06:44] LABS: Hematocrit (blood only) 37.7 % (37.0-47.0); Hemoglobin 11.9 g/dl (12.0-16.0); Mean Corpuscular Hemoglobin 27.5 pg (25.0-34.0); Mean Corpuscular Hgb Conc 31.6 g/dL (32.0-36.0); Mean Corpuscular Volume 87.3 fL (80.0-100.0); Mean Platelet Volume 10.8 fL (9.4-12.4); Platelet Count 246 K/uL (130-400); RDW Standard Deviation 44.9 fL (36.4-46.3); Red Blood Count 4.32 M/uL (4.20-5.40); White Blood Count 5.49 K/ul (4.8-10.8)
[2023-03-07 07:01] LABS: Calcium 9.7 mg/dl (8.6-10.3); Creatinine Clr Calc Pharmacy 38.2 ml/min; Est GFR (African American) 33.4 ml/min; Est GFR (Non-African American) 28.8 ml/min; Potassium 4.5 mmol/L (3.5-5.1)
--- NOTE | 2023-03-07 08:28 | Hospitalist Progress Note ---
Date of Service March 07, 2023 Assessment & Plan (1) Encephalopathy: Plan: -Patient presented with worsening confusion and encephalopathy which likely was toxic encephalopathy as she was on muscle relaxants and metabolic encephalopathy from panniculitis at previous umbilical hernia repair site -CT Head was obtained and was unremarkable for any acute changes -Leukocytosis secondary to panniculitis with fluid collection, has resolved -Dr Morton removed stitch at bedside from wound with now possibility that this was stitch granuloma, opened skin and secondarily infected from staph, Dr Morton recommends prolonged antibiotic course, approx two weeks with surgical re-evaluation at that time -ID consult on 02/15, recommends removal of mesh or lifelong antibiotics -Patient on 03/05 requested second opinion from surgical provider regarding if she needs mesh removal, recommending (and patient desirous of) outpatient evaluation from [facility] mesh specialist -Anticipate placement to SNF available 03/08 (due to positive COVID test and COVID isolation will end on that day) (2) Atrial fibrillation: Plan: -Chronic atrial fibrillation -Xarelto for anticoagulation -Continues to be rate controlled with metoprolol -H/o chronic diastolic heart failure, stable -Typically sees Dr Lopez (3) Ambulatory dysfunction: Plan: -Likely her issues are multifactorial with morbid obesity, spinal stenosis, diabetic peripheral neuropathy as well as acute metabolic encephalopathy -CT head negative for CVA -TSH recently performed in October and WNL -Spinal stenosis with fall, no pain at this time, even after stopping muscle relaxant -PT/OT recommended rehab but this was denied by insurance, therefore pending placement to SNF, suspect available 03/08 (4) Polyneuropathy: Plan: -Patient not complaining of any pain, doing well with hold of sedating medications (5) Sleep apnea: Plan: -CPAP HS (6) COVID: Plan: -Incidental COVID + test, no clinical symptoms, continue supportive care and isolation per policy until 03/08 (7) NATASHA (acute kidney injury): Plan: -Creatinine baseline ~1.4, NATASHA with creatinine 1.69 today, perhaps 2/2 elevated cefepime dosing for CrCl, adjustment made -Holding losartan and furosemide, repeat BMP tomorrow (8) UTI (urinary tract infection): Plan: >100k CFU Pseudomonas sensitive to cefepime, continue this through 03/11 given she was encephalopathic and given her pannus wound Continue cefepime 1g q12h to complete 03/10, US guided IV ordered Plan VTE Prophylaxis - Xarelto; may need to switch to therapeutic Lovenox in the future if plan for surgery becomes necessary Patient made full admission due to metabolic encephalopathy secondary to panniculitis Had Peer to Peer appeal denied for rehab, patient for SNF placement now, delayed due to COVID test + but anticipated to be available 03/08 Will need cefepime 1g IV q12h to finish on 03/10/23 for Pseudomonas in urine, then should transition to oral doxycycline to cover abdominal wound, to continue until seen by General Surgery outpatient CM and Nurse Navigator in hospital/outpatient office will need to coordinate scheduling for hernia specialist follow up outpatient Admission and Anticipated Discharge Date Admission Date: February 11, 2023 Subjective Reports feeling a little constipated today, otherwise no complaints, Senna added. No fevers or acute events overnight. Denies abdominal pain or nausea. Physical Exam Constitutional: WD/WN, vitals as above Respiratory: normal respiratory effort, lungs clear to auscultation Cardiovascular: RRR, no murmur, no edema Gastrointestinal (Abdomen): normal bowel sounds, soft, nontender, no hepatosplenomegaly Skin: no rashes, warm and dry 1cm wound in mid-lower abdomen with yellow green drainage noted, nontender, no surrounding erythema Psychiatric: A+Ox3, euthymic affect Results & Data Results & Data Vital Signs (Past 12 Hours) Vital Signs Temp Pulse Resp BP Pulse Ox O2 Del Method 03/07/23 07:57 36.5 C 69 18 140/82 96 Room Air PG Care Time/CCT Total # of Minutes Spent Total Time Spent with Patient: Total time spent is greater than 50% in coordination of care (as documented) at patient's floor/unit and/or counseling patient: Coding Level of Care Code 79071 SUB INP/OBS CARE 2/35MIN Diagnoses Encephalopathy G93.40 Atrial fibrillation I48.91 Ambulatory dysfunction R26.2 Polyneuropathy G62.9 Sleep apnea G47.30 COVID U07.1 NATASHA (acute kidney injury) N17.9 UTI (urinary tract infection) N39.0
[2023-03-07] MEDS ORDERED: CEFEPIME IV SCH (08:32)
[2023-03-07] MEDS: PREGABALIN 75 MG CAP PO SCH ×2 (08:43→13:07)
[2023-03-07] MEDS: INSULIN ASPART PER UNIT CHARGE SC SCH ×4 (08:43→22:21)
[2023-03-07] MEDS: THIAMINE HCL 50 MG TABLET PO SCH (08:45)
[2023-03-07] MEDS: hydrALAZINE HCL 25 MG TAB PO SCH ×3 (08:45→20:16)
[2023-03-07] MEDS: amLODIPine BESYLATE 5 MG TAB PO SCH ×2 (08:45→20:17)
[2023-03-07] MEDS: METOPROLOL TARTRATE 25 MG TAB PO SCH ×2 (08:46→20:15)
[2023-03-07] MEDS: PANTOprazole 40 MG TAB PO SCH (08:46)
[2023-03-07] MEDS: guaiFENesin 600 MG TABCR PO SCH ×2 (08:46→20:14)
[2023-03-07] MEDS: RIVAROXABAN 15 MG TAB PO SCH (08:46)
[2023-03-07] MEDS: DOXYCYCLINE HYCLATE 100 MG CAP PO SCH ×2 (08:46→20:16)
[2023-03-07] MEDS: CEFEPIME 2,000 MG in SYRINGE 0 ML IV SCH (08:48)
[2023-03-07] MEDS: CEFEPIME 1,000 MG in SYRINGE 0 ML IV SCH ×2 (09:27→20:13)
[2023-03-07] MEDS: POLYETHYLENE (MIRALAX) 17 GM PACK PO PRN (10:37)
[2023-03-07] MEDS: traMADol HCL 50 MG TABLET PO PRN ×2 (10:37→21:36)
[2023-03-07] MEDS: CINACALCET HCL 30 MG TAB PO SCH (13:08)
[2023-03-07] MEDS: FENOFIBRATE NANOCRYSTALLIZED 145 MG TABLET PO SCH (13:08)
[2023-03-07] MEDS: SENNOSIDES 8.8 MG/5 ML UDC PO SCH (15:30)
[2023-03-07] MEDS: PREGABALIN 150 MG CAP PO SCH (20:15)
[2023-03-07] MEDS: DULoxetine HCL 60 MG CAP PO SCH (20:16)
[2023-03-08] MEDS: LEVOTHYROXINE SODIUM 150 MCG TABLET PO SCH (05:51)
[2023-03-08] MEDS: traMADol HCL 50 MG TABLET PO PRN (06:10)
--- NOTE | 2023-03-08 07:48 | Discharge Summary ---
Discharge Summary Date of Service March 08, 2023 Notes For Next Care Provider Follow up BMP later this week Holding losartan, can resume if creatinine improves Holding Lasix, can resume if creatinine improves or gets fluid overloaded Continue cefepime 1g q12h through 03/10/23 for Pseudomonas UTI Then transition to doxycycline 100mg BID until seen by General Surgery for pannus infection/possible mesh infection Needs follow up with infected mesh/hernia specialist, patient requests [facility] provider Admission HPI Per Admitting Provider Ni Tolliver is a 77 year old female who presents to the ER with frequent falls and generalized weakness. She is here with her who provides the majority of the history. They reports a long history of falls progressively getting worse over years. No chest pain, shortness of breath or dizziness prior to falling. Her legs just give out. They do not feel she is safe at home at this time after falling yesterday and today therefore requesting inpatient rehabi litation. No acute new presentation. Falls suspected to be caused by her peripheral neuropathy from diabetes and spinal stenosis. Her was concerned she was more confused yesterday with her staring into the distance. After falling EMS always have to be called to help lift her up as her is unable to. Today the confusion is actually better and she is back to her baseline Most recent change in medication changes was switching gabapentin to pregabalin approximately 2 months ago. Although I cannot confirm this on the external med rec. They both report this has been helpful for her neuropathic pain and she is able to take less ibuprofen and gabapentin while on this. She also stopped metformin 3 weeks ago and felt less nauseous and had abetter appetite after stopping this. Admission Exam Per Admitting Provider Constitutional: well developed and + morbidly obese; + not well nourished and no acute distress Eyes: PERRL, conjunctivae normal, anicteric sclerae ENMT: external ear and nose normal, oropharynx normal Neck: + short neck and + thick neck Respiratory: normal respiratory effort, lungs clear to auscultation Cardiovascular: Rate/Rhythm: regular rate and + irregularly irregular Heart Sounds: no murmur Extremities: normal capillary refill and + pedal edema (1+ ankles b/l equal); no calf tenderness Gastrointestinal (Abdomen): normal bowel sounds, soft, nontender, no hepatosplenomegaly Neurologic: moves all extremities and awake; no focal motor deficits and not confused Motor/Sensory: + sensory deficit (numbness in bilateral feet); no tremor and no pronator drift Cranial Nerves: EOM intact bilaterally, normal facial strength, tongue midline, able to rotate head bilaterally, able to elevate shoulders bilaterally, no nystagmus and symmetric palate elevation Coordination: normal aaytay-uz-uqay test Psychiatric: A+Ox3, euthymic affect Genitourinary: no CVA tenderness Principal Dx & Hospital Course #1 = Principal Diagnosis (1) Encephalopathy: (2) Atrial fibrillation: (3) Ambulatory dysfunction: (4) Polyneuropathy: (5) Sleep apnea: (6) COVID: (7) NATASHA (acute kidney injury): (8) UTI (urinary tract infection): Plan Encephalopathy: -Patient presented with worsening confusion and encephalopathy which likely was toxic encephalopathy as she was on muscle relaxants and metabolic encephalopathy from panniculitis at previous umbilical hernia repair site -CT Head was obtained and was unremarkable for any acute changes -Leukocytosis secondary to panniculitis with fluid collection, has resolved -Dr Morton removed stitch at bedside from wound with now possibility that this was stitch granuloma, opened skin and secondarily infected from staph, Dr Morton recommends prolonged antibiotic course, approx two weeks with surgical re-evaluation at that time (start doxycycline 100mg BID after cefepime for UTI is complete) -ID consult on 02/15, recommends removal of mesh or lifelong antibiotics -Patient on 03/05 requested second opinion from surgical provider regarding if she needs mesh removal, recommending (and patient desirous of) outpatient evaluation from [facility] mesh specialist Atrial fibrillation: -Chronic atrial fibrillation -Xarelto for anticoagulation, would need Lovenox bridging if surgery becomes necessary -Continues to be rate controlled with metoprolol -H/o chronic diastolic heart failure, stable -Typically sees Dr Lopez Ambulatory dysfunction: -Likely her issues are multifactorial with morbid obesity, spinal stenosis, diabetic peripheral neuropathy as well as acute metabolic encephalopathy -CT head negative for CVA -TSH recently performed in October and -Spinal stenosis with fall, no pain at this time, even after stopping muscle relaxant Polyneuropathy: -Patient not complaining of any pain, doing well with hold of sedating medications Sleep apnea: -CPAP HS COVID: -Incidental COVID + test, no clinical symptoms, continue supportive care and isolation discontinued 03/08 NATASHA (acute kidney injury): -Creatinine baseline ~1.4, creatinine stable for last several days at ~1.7, perhaps 2/2 elevated cefepime dosing for CrCl, adjustments made -Holding losartan and furosemide, repeat BMP Wednesday/Wednesday while holding these medications, anticipate these labs to improve when cefepime completes UTI (urinary tract infection): - >100k CFU Pseudomonas sensitive to cefepime, continue this through 03/11 given she was encephalopathic and given her pannus wound - Continue cefepime 1g q12h to complete 03/10, US guided IV ordered Discharge Exam Constitutional WD/WN, vitals as above Respiratory normal respiratory effort, lungs clear to auscultation Cardiovascular RRR, no murmur, no edema Skin no change in pannus wound, still with some intermittent drainage, no surrounding erythema Psychiatric A+Ox3, euthymic affect Updated Medication List Medication Instructions Recorded Confirmed Type albuterol sulfate 90 mcg/actuation 1 - 2 puffs inhalation Q4H PRN 06/15/19 02/09/23 Rx aerosol inhaler shortness of breath or wheezing #8.5 grams fluticasone propionate 50 1 spray intranasal DAILY PRN 06/05/20 02/09/23 History mcg/actuation nasal allergy symptoms spray,suspension (Flonase Allergy Relief) acetaminophen 500 mg tablet 1,000 mg PO Q8 PRN fever or pain 09/25/20 02/09/23 R x #30 tabs thiamine HCl (vitamin B1) 50 mg 50 mg PO QAM #30 tabs 09/25/20 02/09/23 Rx tablet (Vitamin B-1) cinacalcet 30 mg tablet (Sensipar) 30 mg PO DAILY #90 tabs 10/28/20 02/09/23 Rx ipratropium 20 mcg-albuterol 100 1 puff inhalation Q4H PRN 10/28/20 02/09/23 Rx mcg/actuation mist for inhalation shortness of breath or wheezing #4 (Combivent Respimat) grams amlodipine 5 mg tablet 5 mg PO PM #90 tabs 05/13/21 02/09/23 Rx furosemide 20 mg tablet 20 mg PO DAILY 09/15/21 02/09/23 History fluticasone propionate 110 1 puff inhalation BID PRN Wheezing 02/26/22 02/09/23 History mcg/actuation HFA aerosol inhaler (Flovent HFA) fenofibrate nanocrystallized 145 145 mg PO DAILY #90 tabs 05/26/22 02/09/23 Rx mg tablet hydralazine 25 mg tablet 25 mg PO TID #270 tabs 07/07/22 02/09/23 Rx rabeprazole 20 mg tablet,delayed 20 mg PO DAILY #30 tabs 07/20/22 02/09/23 Rx release (AcipHex) rivaroxaban 15 mg tablet 15 mg PO DAILY #30 tabs 07/20/22 02/09/23 Rx duloxetine 60 mg capsule,delayed 60 mg PO HS #90 caps 08/05/22 02/09/23 Rx release alpha lipoic acid 100 mg capsule 300 mg PO BID 08/17/22 02/09/23 History pen needle, diabetic 32 gauge x #100 ea 09/20/22 02/09/23 Rx 5/32" (BD Ultra-Fine Shanel Pen Needle) amlodipine 2.5 mg tablet 2.5 mg PO QAM 10/26/22 02/09/23 History ondansetron 4 mg disintegrating 4 mg PO Q8H PRN nausea and 12/11/22 02/09/23 Rx tablet vomiting #30 tabs pregabalin 75 mg capsule (Lyrica) 75 mg PO .COMPLEX #120 caps 12/24/22 02/09/23 Rx levothyroxine 150 mcg tablet 150 mcg PO DAILYBB #90 tabs 01/04/23 02/09/23 Rx insulin glargine 100 unit/mL (3 6 unit (0.06 mL) subcut HS 30 days 02/05/23 02/09/23 Rx mL) subcutaneous pen (Lantus #3 mL Solostar U-100 Insulin) losartan 100 mg tablet 100 mg PO DAILY 02/09/23 02/09/23 History metoprolol tartrate 25 mg tablet 25 mg PO BID 02/09/23 02/09/23 History triamcinolone acetonide 0.1 % 1 applic topical BID PRN .flare ups 02/09/23 02/09/23 History topical ointment doxycycline hyclate 100 mg capsule 100 mg PO BID 14 days #28 caps 02/26/23 Rx polyethylene glycol 3350 17 gram 17 g PO DAILY PRN constipation #0 03/08/23 Rx oral powder packet (Miralax) ea sennosides 8.8 mg/5 mL oral syrup 8.8 mg (5 mL) PO QAM #0 mL 03/08/23 Rx (senna) Hospital Stay Data Consultations 02/09/23 12:05 ED Decision to Admit Stat 02/13/23 08:24 Consult General Surgery Routine 02/15/23 07:45 Consult Infectious Diseases Routine 03/05/23 17:33 Consult General Surgery Routine 03/06/23 18:34 Consult 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 Routine Diagnostic Imagining Performed 02/09/23 12:06 CT head/brain wo con Stat 02/12/23 09:18 CT head/brain wo con Routine 02/12/23 13:23 US softtissue abdwall/lwr back Routine Pending Results Patient Have Any Pending Studies at Discharge: No Discharge Instructions Given to Patient (Per Discharging Provider) Encephalopathy: -Patient presented with worsening confusion and encephalopathy which likely was toxic encephalopathy as she was on muscle relaxants and metabolic encephalopathy from panniculitis at previous umbilical hernia repair site -CT Head was obtained and was unremarkable for any acute changes -Leukocytosis secondary to panniculitis with fluid collection, has resolved -Dr Morton removed stitch at bedside from wound with now possibility that this was stitch granuloma, opened skin and secondarily infected from staph, Dr Morton recommends prolonged antibiotic course, approx two weeks with surgical re-evaluation at that time (start doxycycline 100mg BID after cefepime for UTI is complete) -ID consult on 02/15, recommends removal of mesh or lifelong antibiotics -Patient on 03/05 requested second opinion from surgical provider regarding if she needs mesh removal, recommending (and patient desirous of) outpatient evaluation from [facility] mesh specialist Atrial fibrillation: -Chronic atrial fibrillation -Xarelto for anticoagulation, would need Lovenox bridging if surgery becomes necessary -Continues to be rate controlled with metoprolol -H/o chronic diastolic heart failure, stable -Typically sees Dr Lopez Ambulatory dysfunction: -Likely her issues are multifactorial with morbid obesity, spinal stenosis, diabetic peripheral neuropathy as well as acute metabolic encephalopathy -CT head negative for CVA -TSH recently performed in October and -Spinal stenosis with fall, no pain at this time, even after stopping muscle relaxant Polyneuropathy: -Patient not complaining of any pain, doing well with hold of sedating medications Sleep apnea: -CPAP HS COVID: -Incidental COVID + test, no clinical symptoms, continue supportive care and isolation discontinued 03/08 NATASHA (acute kidney injury): -Creatinine baseline ~1.4, creatinine stable for last several days at ~1.7, perhaps 2/2 elevated cefepime dosing for CrCl, adjustments made -Holding losartan and furosemide, repeat BMP Wednesday/Wednesday while holding these medications, anticipate these labs to improve when cefepime done UTI (urinary tract infection): >100k CFU Pseudomonas sensitive to cefepime, continue this through 03/11 given she was encephalopathic and given her pannus wound Continue cefepime 1g q12h to complete 03/10, US guided IV ordered Total Time Total Time Spent Total Time Spent (In Minutes): 40 min Coding Level of Care Code 55261 INP/OBS DISCH >30 MIN Diagnoses Encephalopathy G93.40 Atrial fibrillation I48.91 Ambulatory dysfunction R26.2 Polyneuropathy G62.9 Sleep apnea G47.30 COVID U07.1 NATASHA (acute kidney injury) N17.9 UTI (urinary tract infection) N39.0
[2023-03-08] MEDS: INSULIN ASPART PER UNIT CHARGE SC SCH ×2 (07:50→11:39)
[2023-03-08] MEDS: PREGABALIN 75 MG CAP PO SCH (07:53)
[2023-03-08] MEDS: ONDANSETRON 4 MG OD TAB PO PRN (07:53)
[2023-03-08] MEDS: hydrALAZINE HCL 25 MG TAB PO SCH (07:56)
[2023-03-08] MEDS: RIVAROXABAN 15 MG TAB PO SCH (07:56)
[2023-03-08] MEDS: PANTOprazole 40 MG TAB PO SCH (07:57)
[2023-03-08] MEDS: THIAMINE HCL 50 MG TABLET PO SCH (07:57)
[2023-03-08] MEDS: DOXYCYCLINE HYCLATE 100 MG CAP PO SCH (07:57)
[2023-03-08] MEDS: METOPROLOL TARTRATE 25 MG TAB PO SCH (07:57)
[2023-03-08] MEDS: amLODIPine BESYLATE 5 MG TAB PO SCH (07:58)
[2023-03-08] MEDS: SENNOSIDES 8.8 MG/5 ML UDC PO SCH (08:00)
[2023-03-08] MEDS: guaiFENesin 600 MG TABCR PO SCH (08:00)
[2023-03-08] MEDS: CEFEPIME 1,000 MG in SYRINGE 0 ML IV SCH (09:33)
[2023-03-08 10:22] LABS: Calcium 9.6 mg/dl (8.6-10.3); Creatinine Clr Calc Pharmacy 37.7 ml/min; Est GFR (African American) 32.9 ml/min; Est GFR (Non-African American) 28.4 ml/min; Potassium 4.4 mmol/L (3.5-5.1)
[2023-03-08] MEDS: FENOFIBRATE NANOCRYSTALLIZED 145 MG TABLET PO SCH (11:46)
== END 2023-03-08 14:04 | DRG 919 ==
LOC: ED 07:19 → 3W 14:19 → INTOOBSV 14:19 → SUATTDRO 14:19 → 3W 16:26 → SUATTDRO 02-11 15:37 → 3N 02-25 18:32

== ENCOUNTER 2024-05-15 10:04 | Inpatient (IN) ==
[2024-05-15 11:02] LABS: Base Excess VBG 3.7 mEq/L; HCO3 VBG 32 mmol/L; Oxygen Saturation VBG 60.6 %; PCO2 VBG 63 mmHg (38-50); PO2 VBG 35 mmHg; pH VBG 7.31 (7.36-7.41)
[2024-05-15 11:13] LABS: Basophils # (auto) 0.07 K/uL (0.00-0.20); Eosinophils # (auto) 0.24 K/uL (0.00-0.50); Eosinophils % (auto) 3.4 %; Hemoglobin 12.8 g/dl (12.0-16.0); Immature Granulocytes # (auto) 0.13 K/uL (0.01-0.20); Immature Granulocytes % (auto) 1.8 %; Lymphocytes # (auto) 0.84 K/uL (1.20-3.40); Lymphocytes % (auto) 11.7 %; Mean Corpuscular Hemoglobin 27.3 pg (25.0-34.0); Mean Corpuscular Hgb Conc 31.2 g/dL (32.0-36.0); Mean Corpuscular Volume 87.4 fL (80.0-100.0); Mean Platelet Volume 10.5 fL (9.4-12.4); Monocytes # (auto) 0.79 K/uL (0.11-0.59); Neutrophils # (auto) 5.08 K/uL (1.40-6.50); Neutrophils % (auto) 71.1 %; Platelet Count 251 K/uL (130-400); RDW Coefficient of Variation 14.9 % (11.5-14.5); RDW Standard Deviation 47.7 fL (36.4-46.3); Red Blood Count 4.69 M/uL (4.20-5.40); White Blood Count 7.15 K/ul (4.8-10.8)
[2024-05-15 11:19] LABS: Appearance Urine Clear (Clear); Bacteria Urine Automated None Seen (None Seen); Bilirubin Urine Negative (Negative); Blood Urine Negative (Negative); Cast Urine Automated 0-2 /lpf (0-2); Color Urine Yellow; Epithelial Cell Urine Auto 0-2 /hpf (0-2); Glucose Urine UA Negative (Negative); Ketones Urine Negative (Negative); Leukocyte Esterase Urine Negative (Negative); Nitrite Urine Negative (Negative); Protein Urine 3+ (Negative); RBC Urine Automated 0-2 /hpf (0-2); Specific Gravity Urine 1.015 (1.000-1.030); Urobilinogen Urine Negative (Negative); WBC Urine Automated 0-5 /hpf (0-5); pH Urine 5.5 (4.5-7.5)
--- NOTE | 2024-05-15 11:22 | XRay Report ---
XR chest 1V portable CLINICAL HISTORY: Dyspnea. COMPARISON STUDY: Chest CT October 26, 2022. Chest radiograph May 11, 2024. FINDINGS: Right shoulder arthroplasty is incidentally noted. There is no pneumothorax. There are poss ible small bilateral pleural effusions. There are hazy bibasilar opacities. Interstitial thickening h as progressed. Cardiomegaly is unchanged. IMPRESSION: Cardiomegaly. Mild interstitial pulmonary edema with possible small bilateral pleural ef fusions and mild bibasilar opacities. ACT 112: Negative or not required by law. Electronically signed by: Kd Maguire M.D. 05/15/2024 11:21 AM
[2024-05-15] MEDS: FUROSEMIDE 40 MG/4 ML VIAL IV STA (11:31)
--- NOTE | 2024-05-15 11:35 | Emergency Department Note ---
Impression & Plan Pulmonary edema, Hypoxia, NATASHA (acute kidney injury) ED Provider Note NAME: DAVEY GARCIA AGE: 78 SEX: F : 1945 ARRIVES VIA: Walk-In INFORMANT: Patient, ED PROVIDER(S): Vamsi Rao DO CHIEF COMPLAINT: Shortness of breath HPI: The patient is a 78-year-old female who presented to the emergency department for an evaluation of shortness of breath. The patient describes some orthopnea but she uses CPAP at night which has helped her breathing. She does not normally wear oxygen during the day. The patient has complained of some weight gain as well. She is also had intermittent episodes of chest pain. She presented to our facility today for dobutamine stress test. She was unable to have the stress test because of the amount of shortness of breath she was experiencing. The patient denies any chest pain at this time. She denies having any fever or hemoptysis. ROS: See above HPI for pertinent positives & negatives. A total of 10 systems reviewed and were otherwise negative. PAST MEDICAL HISTORY: See Below PAST SURGICAL HISTORY: See Below FAMILY HISTORY: See Below SOCIAL HISTORY: See Below HOME MEDICATIONS: See Below ALLERGIES: See Below VITALS: See Below PHYSICAL EXAMINATION: GENERAL: The patient is awake and alert. The patient is resting comfortably. EYES: The conjunctivae are clear. The pupils are round and reactive. EARS, NOSE, MOUTH AND THROAT: The nose is without any evidence of any deformity. NECK: The neck is nontender and supple. RESPIRATORY: Diminished breath sounds are noted throughout with wheezing both upper lung garcia. CARDIOVASCULAR: Regular rate and rhythm noted there no murmurs rubs or gallops normal S1 normal S2. GASTROINTESTINAL: The abdomen is soft. Abdomen is nontender. MUSCULOSKELETAL/EXTREMITIES: There is no evidence of gross deformity full range of motion is noted in the hips and shoulders. SKIN: Pedal edema was noted bilaterally. Skin is warm and dry. NEUROLOGIC: Patient is awake alert and oriented x3 MEDICAL DECISION MAKING: The patient is a 78-year-old female who presented to the emergency department for an evaluation of difficulty breathing. The patient is undergoing a cardiac workup. She been having worsening difficulty breathing and orthopnea. The patient was found to have signs of pulmonary edema. She was treated with aspirin and Lasix in the emergency department. I discussed the patient's laboratory and radiographic studies with her. I also discussed her condition with the on-call [facility] hospitalist. She would likely require further inpatient workup to further evaluate cause of her pulmonary edema. Triage Nursing notes reviewed. Prior medical records reviewed Vital Signs: reviewed and remarkable for hypoxia and hypertension. Differential diagnosis: Reactive airway disease, pneumonia, pneumothorax, COPD, CHF, infections, cardiac ischemia, pulmonary embolism, musculoskeletal, gastrointestinal, as well as other pathologies. ER treatment provided: See below Diagnostics interpreted by me: ECG: EKG was obtained in the emergency department. My interpretation is atrial fibrillation at [address] segment abnormalities were noted. Poor R wave progression was noted. This was compared to a tracing done earlier in the day. No changes were noted. Cardiac Monitoring: An order was placed for continuous cardiac monitoring. The monitor shows a rate of 85 bpm with atrial fibrillation. Laboratory studies: As stated above and show below. Imaging studies: See below. Radiographic imaging was reviewed by myself Consultation(s): I discussed this case with the [facility]ist. They have agreed to evaluate the patient in the emergency department for further management and disposition. Past Med/Surg History Problem List (Updated 05/15/24 @ 13:12 by Radha Longoria PA-C) Chest pressure NATASHA (acute kidney injury) (Acute) Hypoxia (Acute) Pulmonary edema (Acute) Vitamin D deficiency CKD (chronic kidney disease) stage 4, GFR 15-29 ml/min Controlled type 2 diabetes mellitus, with long-term current use of insulin Acquired foot deformity Abnormal ankle brachial index Anemia Wears hearing aid in both ears Kevin Dorano [id number] disp 01/2023 Ankylosing spondylitis (Chronic) Asthma (Chronic) CKD (chronic kidney disease), stage III Polyneuropathy (Chronic) Nocturnal hypoxemia (Chronic) Chronic anticoagulation (Chronic) Thoracic and lumbosacral neuritis (Chronic) Chronic pain (Chronic) Type 2 diabetes mellitus with diabetic peripheral angiopathy without gangrene Atrial fibrillation Hypertension Sleep apnea CPAP Morbid obesity (Chronic) Cervical radiculopathy (Chronic) Microalbuminuria Dementia Bilateral leg weakness (Acute) Paroxysmal atrial fibrillation Bifascicular bundle branch block Spinal stenosis Statin myopathy (Acute) Chronic lumbar pain Sensorineural hearing loss (SNHL) of both ears Mild to moderate HF SNHL AU Bilateral tinnitus COVID-19 (Acute) Acute urinary retention (Acute) Diastolic CHF Hypoxia (Acute) Morbid obesity with BMI of 40.0-44.9, adult Ambulatory dysfunction (Acute) Abdominal wall abscess at site of surgical wound Infected hernioplasty mesh Draining cutaneous sinus tract UTI (urinary tract infection) Medical History NATASHA (acute kidney injury) COVID GERD (gastroesophageal reflux disease) Toxic encephalopathy Atrial fibrillation with slow ventricular response Fall Primary hyperparathyroidism Hypercalcemia Sinus bradycardia Insomnia Familial tremor Dysphagia Dysesthesia Allergic rhinitis Seborrheic keratosis Hyperparathyroidism Loss of protective sensation of skin of deformed foot Diabetic peripheral neuropathy Controlled type 2 diabetes mellitus with neurologic complication, with long-term current use of insulin Osteoarthritis Degenerative disc disease Chronic back pain GERD (gastroesophageal reflux disease) Septicemia TREATED AT [facility] (BEGINNING OF 2017) AFFECTED RIGHT LEG. Hypothyroidism Hyperlipidemia Hallux valgus (acquired), left foot Callus Acquired hallux valgus of right foot Acquired claw toe of right foot Acquired claw toe of left foot Chest pain Surgical History Nausea and vomiting after administration of anesthetic agent History of bilateral tubal ligation Fusion of spine X3 L1-L5 History of total shoulder replacement RIGHT History of total hip arthroplasty BILATERAL History of total knee replacement BILATERAL History of herniorrhaphy Laparoscopic abdominal wall hernia repair with mesh 04/28/13 Dr. Morton Laparoscopy, lysis of omental adhesions and reduction incarcerated fat resection, repair multiple hernias 04/13/2011 Dr. Morton History of appendectomy LAP History of cholecystectomy LAP Lynn and ventral hernia repair, biopsy peritoneal nodules 06/16/02 Dr. Manuel Anne History of esophagogastroduodenoscopy (EGD) History of colonoscopy History of cataract surgery BILATERAL History of tonsillectomy History of adenoidectomy Family History Father Family history of diabetes mellitus Arthritis Hypertension Stroke Lung disease Obesity Diabetes Mother Arthritis Diabetes Hypertension Stroke Obesity Depression Brother Depression Suicide Aunt Uterine cancer Grandfather (Maternal) Colorectal cancer Aunt Colorectal cancer Denies family history of Prostate cancer Myocardial infarction Breast cancer Social History Smoking Status: Never smoker Second Hand Exposure: No; Do You Dip or Chew Tobacco: No; Hx Alcohol Use: No Hx Substance Use: No Preferred Language: Iraqi Communication Ability: Impaired Visual Impairment: Limited Hearing Ability: Normal Drafter Refrigeration Required: No Beliefs That Will Affect Care: None marital status: Current Living Situation: Spouse current occupational status: retired How many Children do You have: 4 Feels Safe at Home: Yes Childhood Exposure to Second-Hand Smoke: Yes Diet: diabetic and regular caffeine: Yes (tea daily) Dental Care, Regularly: Yes Physical Activity Frequency: 3-4 Times per Week Seatbelt Use: always Sunscreen Use: Yes Do you think of yourself as: straight/heterosexual Gender Identity: Male Assistive Devices: Glasses, Walker and Wheelchair Allergies Allergies Allergy/AdvReac Type Severity Reaction Status Date / Time Aminoglycosides Allergy Intermediate rash Verified 04/11/24 13:03 neomycin Allergy Intermediate RASH Verified 04/11/24 13:03 nickel Allergy Intermediate rash Verified 04/11/24 13:03 piroxicam Allergy Intermediate RASH Verified 04/11/24 13:03 polymyxin B Allergy Intermediate rash Verified 04/11/24 13:03 house dust Allergy Mild Sneezing Verified 04/11/24 13:03 oxycodone [From Roxicodone] AdvReac Mild Shakiness Verified 04/11/24 13:03 Ejnimlr-NCS-GtM Reductase AdvReac Mild MUSCLE AND Verified 04/11/24 13:03 Inhibitor JOINT PAIN [Zykncoy-Xas-Apk Reductase Inhibitor] Home Meds Home Medications Medication Instructions Recorded Confirmed furosemide 20 mg tablet 20 mg PO QAM 09/15/21 05/15/24 metoprolol tartrate 25 mg tablet 25 mg PO .NOON AND BEDTIME 02/09/23 05/15/24 triamcinolone acetonide 0.1 % 1 applic topical BID PRN .flare ups 02/09/23 05/15/24 topical ointment levothyroxine 175 mcg tablet 175 mcg PO UD 08/17/23 05/15/24 vitamins A,C,E-qkds-rsnfek 4,296 1 cap PO .QAM AND PM 09/14/23 05/15/24 mcg-226 mg-90 mg capsule (PreserVision AREDS) blood sugar diagnostic (OneTouch 12/07/23 04/11/24 Verio test strips) insulin glargine 100 unit/mL (3 5 unit subcut HS 12/07/23 05/15/24 mL) subcutaneous pen (Lantus Solostar U-100 Insulin) polyethylene glycol 3350 17 gram 17 g PO QAM constipation 12/07/23 05/15/24 oral powder packet (Miralax) melatonin 3 mg tablet 5 mg PO HS 12/22/23 05/15/24 trazodone 50 mg tablet 100 mg PO HS sleep 04/11/24 05/15/24 CPAP Machine 05/15/24 05/15/24 acetaminophen 500 mg tablet 1,000 mg PO TID fever or pain 05/15/24 05/15/24 apixaban 5 mg tablet (Eliquis) 5 mg PO .NOON AND BEDTIME 05/15/24 05/15/24 azelastine 137 mcg (0.1 %) nasal See Rx Instructions intranasal BID 05/15/24 05/15/24 spray PRN Other cetirizine 10 mg capsule (Zyrtec) 10 mg PO DAILY PRN allergies 05/15/24 05/15/24 cholecalciferol (vitamin D3) 25 25 mcg PO .AFTERNOON 05/15/24 05/15/24 mcg (1,000 unit) capsule cinacalcet 30 mg tablet (Sensipar) 30 mg PO .AFTERNOON 05/15/24 05/15/24 duloxetine 30 mg capsule,delayed 30 mg PO .AFTERNOON 05/15/24 05/15/24 release duloxetine 60 mg capsule,delayed 60 mg PO QAM 05/15/24 05/15/24 release fenofibrate nanocrystallized 145 145 mg PO .NOON 05/15/24 05/15/24 mg tablet fluticasone propionate 50 2 spray intranasal BID PRN Other 05/15/24 05/15/24 mcg/actuation nasal spray,suspension losartan 100 mg tablet 100 mg PO .AFTERNOON 05/15/24 05/15/24 pregabalin 75 mg capsule (Lyrica) 75 mg PO UD 05/15/24 05/15/24 rabeprazole 20 mg tablet,delayed 20 mg PO QAM 05/15/24 05/15/24 release (AcipHex) Previous Rx's Medication Instructions Recorded thiamine HCl (vitamin B1) 50 mg 50 mg PO QAM #30 tabs 09/25/20 tablet (Vitamin B-1) amlodipine 5 mg tablet 5 mg PO PM #90 tabs 05/13/21 albuterol sulfate 90 mcg/actuation 1 - 2 puff inhalation Q4H PRN 06/08/23 aerosol inhaler shortness of breath or wheezing #8.5 grams amlodipine 2.5 mg tablet 2.5 mg PO QAM #90 tabs 07/09/23 fluticasone propionate 110 1 puff inhalation BID PRN Wheezing 10/22/23 mcg/actuation HFA aerosol inhaler #12 grams pen needle, diabetic 32 gauge x #100 ea 12/09/23" (BD Ultra-Fine Shanel Pen Needle) chlorzoxazone 750 mg tablet 750 mg PO TID #270 tabs 02/22/24 hydralazine 50 mg tablet 50 mg PO TID #270 tabs 03/01/24 gabapentin 100 mg capsule 100 mg PO QID #120 caps 04/18/24 ondansetron 4 mg disintegrating 4 mg PO Q8H PRN nausea and 05/12/24 tablet vomiting #30 tabs Results & Data (ED) Vital Signs Vital Signs - 24 hr 05/15/24 10:14 05/15/24 10:45 05/15/24 10:49 Temperature 36.3 C L Temperature Source Temporal Artery Scan Pulse Rate 74 Pulse Rate [Apical] Pulse Rate from SpO2 Sensor Respiratory Rate 22 Respiratory Effort / Characteristics Non-Labored Spontaneous Spontaneous Respiratory Depth Normal Respiratory Pattern Regular Regular Blood Pressure 168/117 H Blood Pressure [Left Arm] Blood Pressure Mean 134 Blood Pressure Mean [Left Arm] Blood Pressure Position [Left Arm] Pulse Oximetry 95 96 Oxygen Delivery Method Nasal Cannula Room Air Oxygen Flow Rate 3 Sepsis Recent Fever Within 48 Hours No Sepsis New/Unexplained Change in Mental Status N/A Sepsis Action Taken by Nursing No Action Required 05/15/24 10:49 05/15/24 10:50 05/15/24 10:51 Temperature Temperature Source Pulse Rate 65 Pulse Rate [Apical] 71 Pulse Rate from SpO2 Sensor 71 Respiratory Rate 19 26 H Respiratory Effort / Characteristics Respiratory Depth Normal Respiratory Pattern Blood Pressure Blood Pressure [Left Arm] 182/128 H Blood Pressure Mean Blood Pressure Mean [Left Arm] 146 Blood Pressure Position [Left Arm] Pulse Oximetry 96 96 98 Oxygen Delivery Method Room Air Room Air Nasal Cannula Oxygen Flow Rate 3 Sepsis Recent Fever Within 48 Hours Sepsis New/Unexplained Change in Mental Status Sepsis Action Taken by Nursing 05/15/24 11:03 05/15/24 11:16 05/15/24 11:16 Temperature Temperature Source Pulse Rate 66 Pulse Rate [Apical] Pulse Rate from SpO2 Sensor 71 Respiratory Rate 18 Respiratory Effort / Characteristics Respiratory Depth Respiratory Pattern Blood Pressure Blood Pressure [Left Arm] Blood Pressure Mean Blood Pressure Mean [Left Arm] Blood Pressure Position [Left Arm] Pulse Oximetry 94 88 L 97 Oxygen Delivery Method Nasal Cannula Room Air Nasal Cannula Oxygen Flow Rate 3 3 Sepsis Recent Fever Within 48 Hours Sepsis New/Unexplained Change in Mental Status Sepsis Action Taken by Nursing 05/15/24 11:22 05/15/24 12:26 Temperature 36.5 C Temperature Source Oral Pulse Rate Pulse Rate [Apical] 76 69 Pulse Rate from SpO2 Sensor Respiratory Rate 23 28 H Respiratory Effort / Characteristics Spontaneous Short of Breath Short of Breath Respiratory Depth Normal Normal Respiratory Pattern Regular Tachypnea Blood Pressure Blood Pressure [Left Arm] 184/97 H 151/118 H Blood Pressure Mean Blood Pressure Mean [Left Arm] 126 129 Blood Pressure Position [Left Arm] Semi-fowlers Pulse Oximetry 95 98 Oxygen Delivery Method Room Air Room Air Oxygen Flow Rate 3 Sepsis Recent Fever Within 48 Hours Sepsis New/Unexplained Change in Mental Status Sepsis Action Taken by [facility] Medications Current Medication List: was personally reviewed by me Laboratory Data Attestation: I reviewed the patient's lab results. 05/15/24 10:38 05/15/24 10:38 Lab Results 05/15/24 05/15/24 05/15/24 Range/Units 10:38 10:41 10:59 WBC 7.15 (4.8-10.8) K/ul RBC 4.69 (4.20-5.40) M/uL Hgb 12.8 (12.0-16.0) g/dl Hct 41.0 (37.0-47.0) % MCV 87.4 (80.0-100.0) fL MCH 27.3 (25.0-34.0) pg MCHC 31.2 L (32.0-36.0) g/dL RDW Std Deviation 47.7 H (36.4-46.3) fL RDW Coeff of Jeanette 14.9 H (11.5-14.5) % Plt Count 251 (130-400) K/uL MPV 10.5 (9.4-12.4) fL Immature Gran % (Auto) 1.8 % Neut % (Auto) 71.1 % Lymph % (Auto) 11.7 % [place] % (Auto) 11.0 % Eos % (Auto) 3.4 % Baso % (Auto) 1.0 % Neut # (Auto) 5.08 (1.40-6.50) K/uL Lymph # (Auto) 0.84 L (1.20-3.40) K/uL [place] # (Auto) 0.79 H (0.11-0.59) K/uL Eos # (Auto) 0.24 (0.00-0.50) K/uL Baso # (Auto) 0.07 (0.00-0.20) K/uL Immature Gran # (Auto) 0.13 (0.01-0.20) K/uL PT 11.4 (9.0-12.0) Seconds INR 1.1 (0.9-1.1) APTT 30 (21-31) Seconds PTT Ratio 1.1 VBG pH 7.31 L (7.36-7.41) VBG pCO2 63 H (38-50) mmHg VBG pO2 35 mmHg VBG HCO3 32 mmol/L VBG O2 Saturation 60.6 % VBG Base Excess 3.7 mEq/L Sodium 142 (136-145) mmol/L Potassium 4.2 (3.5-5.1) mmol/L Chloride 105 (98-107) mmol/L Carbon Dioxide 30 (21-32) mmol/L Anion Gap 7 (3-11) BUN 42 H (6-23) mg/dl Creatinine 1.93 H (0.6-1.2) mg/dl Est Cr Clr Drug Dosing 35.2 ml/min eGFR 26.20 BUN/Creatinine Ratio 21.8 H (10-20) Glucose 108 H (70-99(Fasting)) mg/dl Calcium 9.4 (8.6-10.3) mg/dl Magnesium 2.1 (1.7-2.4) mg/dl Total Bilirubin 0.5 (0.2-1.0) mg/dl AST 19 (13-39) U/L ALT 14 (7-52) U/L Alkaline Phosphatase 56 (34-104) U/L Troponin I High Sens 9.0 (0-14) pg/ml B-Natriuretic Peptide 456 H (0-100) pg/ml Total Protein 7.3 (6.0-8.3) gm/dl Albumin 4.0 (3.4-5.0) gm/dl Globulin 3.3 (2.5-4.0) gm/dl Albumin/Globulin Ratio 1.2 (0.9-2) Urine Color Yellow Urine Appearance Clear (Clear) Urine pH 5.5 (4.5-7.5) Ur Specific [place] 1.015 (1.000-1.030) Urine Protein 3+ H (Negative) Urine Glucose (UA) Negative (Negative) Urine Ketones Negative (Negative) Urine Blood Negative (Negative) Urine Nitrite Negative (Negative) Urine Bilirubin Negative (Negative) Urine Urobilinogen Negative (Negative) Ur Leukocyte Esterase Negative (Negative) Urine WBC (Auto) 0-5 (0-5) /hpf Urine RBC (Auto) 0-2 (0-2) /hpf U Hyaline Cast (Auto) 0-2 (0-2) /lpf U Epithel Cells (Auto) 0-2 (0-2) /hpf Urine Bacteria (Auto) None Seen (None Seen) SARS-CoV-2 (PCR) NEGATIVE (Negative) Influenza Type A (PCR) Negative (Neg) Influenza Type B (PCR) Negative (Neg) RSV (RT-PCR) Negative (Neg) Administered Medications Discontinued Medications Aspirin (Aspirin Chew 324 Mg) 324 mg PO NOW STA Stop: 05/15/24 11:37 Last Admin: 05/15/24 12:27 Dose: 324 mg Documented By: MARY Furosemide (Furosemide 40 Mg/4 Ml Vial) 60 mg IV ONE STA Stop: 05/15/24 11:21 Last Admin: 05/15/24 11:31 Dose: 60 mg Documented By: MARY Imaging Data Attestation: I personally reviewed and interpreted this imaging study as follows: My Impression: 1 view chest x-ray was obtained in the emergency department. My interpretation is no free air or definite infiltrate, cardiomegaly with volume overload was suggested, final report below. Radiologist's Impression: Chest X-Ray 05/15/24 10:35 XR chest 1V portable CLINICAL HISTORY: Dyspnea. COMPARISON STUDY: Chest CT October 26, 2022. Chest radiograph May 11, 2024. FINDINGS: Right shoulder arthroplasty is incidentally noted. There is no pneumothorax. There are possible small bilateral pleural effusions. There are hazy bibasilar opacities. Interstitial thickening has progressed. Cardiomegaly is unchanged. IMPRESSION: Cardiomegaly. Mild interstitial pulmonary edema with possible small bilateral pleural effusions and mild bibasilar opacities. ACT 112: Negative or not required by law. Electronically signed by: Kd Maguire M.D. 05/15/2024 11:21 AM Discharge Plan Visit Data Chief Complaint: Shortness of Breath/Dyspnea Stated Complaint: SOB ED Provider: Vamsi Rao ED Midlevel Provider: Oksana Sahni Discharge Problem: Pulmonary edema, Hypoxia, NATASHA (acute kidney injury) Patient Disposition: Admitted As Inpatient Discharge Instructions Interventions: ED Discharge Assessment Last Done: 05/15/24 14:31 Discharge Problem: Pulmonary edema Qualifiers: Chronicity: acute Qualified Code(s): J81.0 - Acute pulmonary edema
[2024-05-15 11:45] LABS: Influenza A virus by PCR Negative (Neg); Influenza B virus by PCR Negative (Neg); RSV by PCR Negative (Neg); SARS CoV2 RNA(COVID-19) Ceph NEGATIVE (Negative)
[2024-05-15 11:45] LABS: Albumin Globulin Ratio 1.2 (0.9-2); BUN Creatinine Ratio 21.8 (10-20); Bilirubin,Total 0.5 mg/dl (0.2-1.0); Calcium 9.4 mg/dl (8.6-10.3); Creatinine Clr Calc Pharmacy 35.2 ml/min; Globulin 3.3 gm/dl (2.5-4.0); INR 1.1 (0.9-1.1); Magnesium 2.1 mg/dl (1.7-2.4); Partial Thromboplastin Ratio 1.1; Partial Thromboplastin Time 30 Seconds (21-31); Potassium 4.2 mmol/L (3.5-5.1); Prothrombin Time 11.4 Seconds (9.0-12.0); Total Protein 7.3 gm/dl (6.0-8.3)
--- NOTE | 2024-05-15 12:17 | History & Physical Report ---
Date of Service May 15, 2024 Assessment & Plan (1) Pulmonary edema: Plan: patient with worsening dyspnea x 5 weeks and mild LE edema secondary to CKD - CXR on admission showed cardiomegaly pulmonary edema - echo showing no significant change, normal LV systolic function, EF 60 to 65% - VBG showed respiratory acidosis; 7.31/63/35 - BNP 456 - Respiratory panel negative - 3 L O2 via nasal cannula; not on oxygen at baseline - given 60 mg Lasix IV in ER (on 20 mg po at home) - continue IV Lasix 60 mg daily - Wean oxygen as tolerated, CPAP overnight - Strict I&O monitoring - Daily weights - SCDs, rasheeda stockings, promote leg elevation (2) Hypoxia: Plan: see pulm edema workup (3) CKD (chronic kidney disease) stage 4, GFR 15-29 ml/min: Plan: history of stage IV CKD, follows with nephrology and endocrinology outpatient mildly worsening kidney function on admission - Cr currently 1.93 (Baseline ~1.6) - +3 urine protein, chronic - recent Protein/Cr ratio 6.7 indicating nephrotic range - protein/Cr ratio pending - continue cinacalcet, fenofibrate - continue Lasix 60 mg IV daily - will need close nephrology follow up out patient (4) Controlled type 2 diabetes mellitus, with long-term current use of insulin: Plan: - Most recent A1C 6.1% - on 5 units Lantus HS at home, continue - T2DM diet Polyneuropathy - continue chlorzoxazone and Lyrica (5) Paroxysmal atrial fibrillation: Plan: as per patient she has been in and out of A-fib - EKG on admission showed a fib, rate 67 - Cardiac echo showed no acute changes - recent TSH WNL given age - Anticoagulated with Eliquis, rate controlled with metoprolol - Continue to monitor on Telemetry - continue metoprolol and Eliquis (6) Chest pressure: Plan: patient with history of midsternal chest pressure for multiple weeks at rest - was to have dobutamine stress test today with Dr. Powers, but unable to complete given dyspnea - Troponin negative - EKG showing A fib, no ischemic changes - Monitor on telemetry Plan Chronic stable diagnoses: HTN - continue amlodipine, losartan, metoprolol, and lasix Anxiety/depression - continue duloxetine, hydralazine, melatonin, trazodone hypothyroidism continue levothyroxine chronic constipation continue MiraLAX daily GERD - continue PPI Thiamine Deficiency continue supplement TIERRA - continue CPAP HS macular degeneration - received injection Wednesday; next injection due in June VTE ppx: Teds, SCDs, Eliquis Diet: DM, low sodium, heart healthy diet Code status: Full code Dispo: Med surg/ tele Admission and Anticipated Discharge Date Admission Date: 05/15/24 History of Present Illness Chief Complaint: Dyspnea Primary Care Provider: Dirk Cooper DO Patient and her seen at bedside. Patient is a 75-year-old female with a past medical history of CKD stage IV, type 2 diabetes with polyneuropathy, paroxysmal A-fib, obesity, hyperlipidemia, hypertension, GERD, hypothyroidism, anemia, and macular degeneration. She presents today due to worsening dyspnea over the past 5 weeks. It initially started with minimal exertion, now occurs at rest. She was to have a dobutamine stress test today due to ongoing chest pressure, although was unable to complete due to shortness of breath. She did have the resting echo completed. The chest pressure is midsternal and she has not had an episode since this morning. She denies orthopnea, although wears CPAP at bedtime. She does have a chronic cough with mucus production. Her was at bedside who stated that he cooks dinner for them every night, they do not eat high sodium foods, although she does get salt on all of her meals. She drinks water and hot tea often. She states she has had some mild lower extremity edema. She takes Lasix 20 mg daily, given 60 mg IV in the ER. she has been taking her pulse ox at home; drops to 86 at times but quickly trends up to 91 or 92. Patient endorse chronic headaches, chronic constipation in which she takes Miralax daily, and numbness (diabetic neuropathy). Patient denies dizziness, lightheadedness, vision changes, abdominal pain, nausea, vomiting, diarrhea. She has a history of diabetes in which she only uses Lantus insulin 5 units at night. She denies history of cancer, VTE, AL, or stroke. She uses CPAP at bedtime. She took all of her home medications this morning, other than MiraLAX. She wishes to be full code at this time. Completed patient education of current condition and management was provided. All questions that the patient asked were answered, and patient demonstrated complete understanding. The patient was discussed with Dr. Lynne at the time of the admission/consult. Allergies Allergy/AdvReac Type Severity Reaction Status Date / Time Aminoglycosides Allergy Intermediate rash Verified 04/11/24 13:03 neomycin Allergy Intermediate RASH Verified 04/11/24 13:03 nickel Allergy Intermediate rash Verified 04/11/24 13:03 piroxicam Allergy Intermediate RASH Verified 04/11/24 13:03 polymyxin B Allergy Intermediate rash Verified 04/11/24 13:03 house dust Allergy Mild Sneezing Verified 04/11/24 13:03 oxycodone [From Roxicodone] AdvReac Mild Shakiness Verified 04/11/24 13:03 Ximobbt-PUO-TiC Reductase AdvReac Mild MUSCLE AND Verified 04/11/24 13:03 Inhibitor JOINT PAIN [Ueazeaz-Fnz-Kby Reductase Inhibitor] Home Medications Medication Instructions Recorded Confirmed Type thiamine HCl (vitamin B1) 50 mg 50 mg PO QAM #30 tabs 09/25/20 05/15/24 Rx tablet (Vitamin B-1) amlodipine 5 mg tablet 5 mg PO PM #90 tabs 05/13/21 05/15/24 Rx furosemide 20 mg tablet 20 mg PO QAM 09/15/21 05/15/24 History metoprolol tartrate 25 mg tablet 25 mg PO .NOON AND BEDTIME 02/09/23 05/15/24 History triamcinolone acetonide 0.1 % 1 applic topical BID PRN .flare ups 02/09/23 05/15/24 History topical ointment albuterol sulfate 90 mcg/actuation 1 - 2 puff inhalation Q4H PRN 06/08/23 05/15/24 Rx aerosol inhaler shortness of breath or wheezing #8.5 grams amlodipine 2.5 mg tablet 2.5 mg PO QAM #90 tabs 07/09/23 05/15/24 Rx levothyroxine 175 mcg tablet 175 mcg PO UD 08/17/23 05/15/24 History vitamins A,C,L-lush-oygsik 4,296 1 cap PO .QAM AND PM 09/14/23 05/15/24 History mcg-226 mg-90 mg capsule (PreserVision AREDS) fluticasone propionate 110 1 puff inhalation BID PRN Wheezing 10/22/23 05/15/24 Rx mcg/actuation HFA aerosol inhaler #12 grams blood sugar diagnostic (OneTouch 12/07/23 04/11/24 History Verio test strips) insulin glargine 100 unit/mL (3 5 unit subcut HS 12/07/23 05/15/24 History mL) subcutaneous pen (Lantus Solostar U-100 Insulin) polyethylene glycol 3350 17 gram 17 g PO QAM constipation 12/07/23 05/15/24 History oral powder packet (Miralax) pen needle, diabetic 32 gauge x #100 ea 12/09/23 04/11/24 Rx 5/32" (BD Ultra-Fine Shanel Pen Needle) melatonin 3 mg tablet 5 mg PO HS 12/22/23 05/15/24 History chlorzoxazone 750 mg tablet 750 mg PO TID #270 tabs 02/22/24 05/15/24 Rx hydralazine 50 mg tablet 50 mg PO TID #270 tabs 03/01/24 05/15/24 Rx trazodone 50 mg tablet 100 mg PO HS sleep 04/11/24 05/15/24 History gabapentin 100 mg capsule 100 mg PO QID #120 caps 04/18/24 05/15/24 Rx ondansetron 4 mg disintegrating 4 mg PO Q8H PRN nausea and 05/12/24 05/15/24 Rx tablet vomiting #30 tabs CPAP Machine 05/15/24 05/15/24 History acetaminophen 500 mg tablet 1,000 mg PO TID fever or pain 05/15/24 05/15/24 History apixaban 5 mg tablet (Eliquis) 5 mg PO .NOON AND BEDTIME 05/15/24 05/15/24 History azelastine 137 mcg (0.1 %) nasal See Rx Instructions intranasal BID 05/15/24 05/15/24 History spray PRN Other cetirizine 10 mg capsule (Zyrtec) 10 mg PO DAILY PRN allergies 05/15/24 05/15/24 History cholecalciferol (vitamin D3) 25 25 mcg PO .AFTERNOON 05/15/24 05/15/24 History mcg (1,000 unit) capsule cinacalcet 30 mg tablet (Sensipar) 30 mg PO .AFTERNOON 05/15/24 05/15/24 History duloxetine 30 mg capsule,delayed 30 mg PO .AFTERNOON 05/15/24 05/15/24 History release duloxetine 60 mg capsule,delayed 60 mg PO QAM 05/15/24 05/15/24 History release fenofibrate nanocrystallized 145 145 mg PO .NOON 05/15/24 05/15/24 History mg tablet fluticasone propionate 50 2 spray intranasal BID PRN Other 05/15/24 05/15/24 History mcg/actuation nasal spray,suspension losartan 100 mg tablet 100 mg PO .AFTERNOON 05/15/24 05/15/24 History pregabalin 75 mg capsule (Lyrica) 75 mg PO UD 05/15/24 05/15/24 History rabeprazole 20 mg tablet,delayed 20 mg PO QAM 05/15/24 05/15/24 History release (AcipHex) Past Med/Surg History Problem List (Updated 05/15/24 @ 13:12 by Radha Longoria PA-C) Chest pressure NATASHA (acute kidney injury) (Acute) Hypoxia (Acute) Pulmonary edema (Acute) Vitamin D deficiency CKD (chronic kidney disease) stage 4, GFR 15-29 ml/min Controlled type 2 diabetes mellitus, with long-term current use of insulin Acquired foot deformity Abnormal ankle brachial index Anemia Wears hearing aid in both ears [employer] L70R disp 01/2023 Ankylosing spondylitis (Chronic) Asthma (Chronic) CKD (chronic kidney disease), stage III Polyneuropathy (Chronic) Nocturnal hypoxemia (Chronic) Chronic anticoagulation (Chronic) Thoracic and lumbosacral neuritis (Chronic) Chronic pain (Chronic) Type 2 diabetes mellitus with diabetic peripheral angiopathy without gangrene Atrial fibrillation Hypertension Sleep apnea CPAP Morbid obesity (Chronic) Cervical radiculopathy (Chronic) Microalbuminuria Dementia Bilateral leg weakness (Acute) Paroxysmal atrial fibrillation Bifascicular bundle branch block Spinal stenosis Statin myopathy (Acute) Chronic lumbar pain Sensorineural hearing loss (SNHL) of both ears Mild to moderate HF SNHL AU Bilateral tinnitus COVID-19 (Acute) Acute urinary retention (Acute) Diastolic CHF Hypoxia (Acute) Morbid obesity with BMI of 40.0-44.9, adult Ambulatory dysfunction (Acute) Abdominal wall abscess at site of surgical wound Infected hernioplasty mesh Draining cutaneous sinus tract UTI (urinary tract infection) Medical History NATASHA (acute kidney injury) COVID GERD (gastroesophageal reflux disease) Toxic encephalopathy Atrial fibrillation with slow ventricular response Fall Primary hyperparathyroidism Hypercalcemia Sinus bradycardia Insomnia Familial tremor Dysphagia Dysesthesia Allergic rhinitis Seborrheic keratosis Hyperparathyroidism Loss of protective sensation of skin of deformed foot Diabetic peripheral neuropathy Controlled type 2 diabetes mellitus with neurologic complication, with long-term current use of insulin Osteoarthritis Degenerative disc disease Chronic back pain GERD (gastroesophageal reflux disease) Septicemia TREATED AT [facility] (BEGINNING OF 2017) AFFECTED RIGHT LEG. Hypothyroidism Hyperlipidemia Hallux valgus (acquired), left foot Callus Acquired hallux valgus of right foot Acquired claw toe of right foot Acquired claw toe of left foot Chest pain Surgical History Nausea and vomiting after administration of anesthetic agent History of bilateral tubal ligation Fusion of spine X3 L1-L5 History of total shoulder replacement RIGHT History of total hip arthroplasty BILATERAL History of total knee replacement BILATERAL History of herniorrhaphy Laparoscopic abdominal wall hernia repair with mesh 04/28/13 Dr. Morton Laparoscopy, lysis of omental adhesions and reduction incarcerated fat resection, repair multiple hernias 04/13/2011 Dr. Morton History of appendectomy LAP History of cholecystectomy LAP Lynn and ventral hernia repair, biopsy peritoneal nodules 06/16/02 Dr. Manuel Anne History of esophagogastroduodenoscopy (EGD) History of colonoscopy History of cataract surgery BILATERAL History of tonsillectomy History of adenoidectomy Family History Father Family history of diabetes mellitus Arthritis Hypertension Stroke Lung disease Obesity Diabetes Mother Arthritis Diabetes Hypertension Stroke Obesity Depression Brother Depression Suicide Aunt Uterine cancer Grandfather (Maternal) Colorectal cancer Aunt Colorectal cancer Denies family history of Prostate cancer Myocardial infarction Breast cancer Social History Smoking Status: Never smoker Second Hand Exposure: No; Do You Dip or Chew Tobacco: No; Tobacco Cessation Education Requested by Patient: No Hx Alcohol Use: No Hx Substance Use: No Preferred Language: Maltese Communication Ability: Effective Visual Impairment: Limited Hearing Ability: Normal Psychological Operations Required: No Beliefs That Will Affect Care: None marital status: Current Living Situation: Spouse current occupational status: retired How many Children do You have: 4 Other Information That Helps Us Care for You: No Feels Safe at Home: Yes Safety Concerns: Feels Safe At This Time Childhood Exposure to Second-Hand Smoke: Yes Diet: diabetic and regular caffeine: Yes (tea daily) Dental Care, Regularly: Yes Physical Activity Frequency: 3-4 Times per Week Seatbelt Use: always Sunscreen Use: Yes Do you think of yourself as: straight/heterosexual Gender Identity: Male Assistive Devices: CPAP, Glasses and Hearing Aid - Bilateral Review of Systems Review of Systems: See HPI Physical Exam Physical Exam: The patient is awake, alert and oriented 3, obese, normocephalic and atraumatic, in no acute distress. Non-toxic appearing. HEENT- EOMI, mucous membranes moist. Hearing grossly intact. Heart- Irregularly irregular, normal S1 and S2. No murmurs, rubs or gallops. Lungs- decreased bilaterally, no respiratory distress, no accessory muscle use. on 3 L O2 via nasal cannula. Abdomen-normal bowel sounds and soft. Non-tender. Extremities- no clubbing, cyanosis. +1 pitting edema to bilateral LE, ankles and feet. Rheumatologic-normal range of motion. Psychiatric-normal affect. Results & Data Results & Data Vital Signs (Past 12 Hours) Vital Signs Temp Pulse Pulse Resp BP BP Pulse Ox 05/15/24 11:22 36.5 C 76 23 184/97 H 95 05/15/24 11:16 97 05/15/24 11:16 88 L 05/15/24 11:03 66 18 94 05/15/24 10:51 65 26 H 98 05/15/24 10:50 96 05/15/24 10:49 71 19 182/128 H 96 05/15/24 10:49 96 05/15/24 10:14 36.3 C L 74 22 168/117 H 95 O2 Del Method O2 Flow Rate 05/15/24 11:22 Room Air 3 05/15/24 11:16 Nasal Cannula 3 05/15/24 11:16 Room Air 05/15/24 11:03 Nasal Cannula 3 05/15/24 10:51 Nasal Cannula 3 05/15/24 10:50 Room Air 05/15/24 10:49 Room Air 05/15/24 10:49 Room Air 11/04/24 10:14 Nasal Cannula 3 Code Status & VTE Plan Code Status full code VTE Prophylaxis Plan VTE Prophylaxis will be ordered: Yes Supervising Physician Co-Signing Physician Notes I personally saw and examined the patient. I independently reviewed the labs, EKG, imaging, problem list, medication list, past medical history and family history. I verified all pedro points and agree with Radha Longoria PA-C with the following exceptions and/or additions: 78 year old female presents to the ER with shortness of breath from her dobutamine stress echo, able to complete resting echocardiogram with preserved ejection fraction, moderate tricuspid regurgitation. Noted to have pulmonary edema on CXR, significant orthopnea from history. O/E HS irregular rhythm, regular rate, no murmurs, Chest bibasl crackles, no wheezing, Abdo distended, pedal edema 3+ b/l A/P Hypervolemia due to CKD - Lasix 60mg IV appears to be working well in the ER, continue this dose daily, I&Os, daily weights, Low Na diet PG Care Time/CCT Total # of Minutes Spent Total Time Spent with Patient: Total time spent is greater than 50% in coordination of care (as documented) at patient's floor/unit and/or counseling patient: Coding Level of Care Code 24310 INT INP/OBS CARE 375MIN Diagnoses Pulmonary edema J81.0 Chronicity: acute Hypoxia R09.02 CKD (chronic kidney disease) stage 4, GFR 15-29 ml/min N18.4 Controlled type 2 diabetes mellitus, with long-term current use of insulin E11.9; Z79.4 Paroxysmal atrial fibrillation I48.0 Chest pressure R07.89 (1) Pulmonary edema Chronicity: acute Qualified Code(s): J81.0 - Acute pulmonary edema
[2024-05-15] MEDS: ASPIRIN CHEW 324 MG PO STA (12:27)
[2024-05-15] MEDS ORDERED: DEXTROSE 50% 50 ML SYRINGE IV PRN (14:59)
[2024-05-15] MEDS ORDERED: GLUCOSE 10 TAB/TUBE PO PRN (14:59)
[2024-05-15] MEDS ORDERED: GLUCOSE 40% GEL 15 GM TUBE PO PRN (14:59)
[2024-05-15] MEDS ORDERED: CARBOHYDRATES FOR HYPOGLYCEMIA PO PRN (14:59)
[2024-05-15] MEDS ORDERED: GLUCAGON FOR INJ 1 MG VIAL SQ PRN (14:59)
[2024-05-15 15:02] LABS: Creatinine Urine Random 42.4 mg/dl; Protein Creatinine Ratio Urine 9.1 (0-0.2); Total Protein Urine Random 384.7 mg/dl (0-11.9)
--- NOTE | 2024-05-15 15:12 | Electrocardiogram Report ---
Test Reason : Blood Pressure : */* mmHG Vent. Rate : 67 BPM Atrial Rate : * BPM P-R Int : * ms QRS Dur : 116 ms QT Int : 424 ms P-R-T Axes : * -71 89 degrees QTcB Int : 448 ms Atrial fibrillation Left axis deviation Septal infarct (cited on or before 23-Aug-2014) Abnormal ECG When compared with ECG of 15-May-2024 09:52, (unconfirmed) Criteria for Inferior infarct are no longer Present Confirmed by Vamsi Powers ([id number]) on 05/15/2024 3:12:30 PM Referred By: REFERRED SELF Confirmed By: Vamsi Powers
[2024-05-15] MEDS: CINACALCET HCL 30 MG TAB PO SCH (15:56)
[2024-05-15] MEDS: hydrALAZINE TAB 50 MG TAB PO SCH (15:57)
[2024-05-15] MEDS: DULoxetine HCL 30 MG CAP PO SCH (15:58)
[2024-05-15] MEDS: CHOLECALCIFEROL 25 MCG (1000 UNITS) TAB PO SCH (15:58)
[2024-05-15] MEDS: METOPROLOL TARTRATE 25 MG TAB PO SCH (15:59)
[2024-05-15] MEDS: LOSARTAN POTASSIUM 50 MG TAB PO SCH (15:59)
[2024-05-15] MEDS: GABAPENTIN 100 MG CAP PO SCH (16:00)
[2024-05-15] MEDS: POLYETHYLENE (MIRALAX) 17 GM PACK PO SCH (16:03)
[2024-05-15] MEDS: PREGABALIN 75 MG CAP PO SCH (16:03)
[2024-05-15] MEDS ORDERED: AZELASTINE HCL 0.1% NASAL 200 SPRAYS/27,400 MCG BTL NAE PRN (16:51)
[2024-05-15] MEDS ORDERED: ALBUTEROL HFA 8 GM INHALER INH PRN (16:51)
[2024-05-15] MEDS ORDERED: CETIRIZINE HCL 10 MG TABLET PO PRN (17:00)
[2024-05-15] MEDS ORDERED: FLUTICASONE FUROATE 200MCG 14 PUFFS/INHALER INH PRN (17:02)
[2024-05-15] MEDS: CHLORZOXAZONE 500 MG TAB PO SCH (20:15)
[2024-05-15] MEDS: LANTUS PER UNIT CHARGE SQ SCH (20:17)
[2024-05-15] MEDS: PREGABALIN 150 MG CAP PO SCH (20:18)
[2024-05-15] MEDS: MELATONIN 3 MG TAB PO SCH (20:18)
[2024-05-15] MEDS: ACETAMINOPHEN 500 MG TAB PO SCH (20:18)
[2024-05-15] MEDS: APIXABAN 5 MG TABLET PO SCH (20:20)
[2024-05-15] MEDS: amLODIPine BESYLATE 5 MG TAB PO SCH (20:21)
[2024-05-15] MEDS: traZODone HCL 100 MG TAB PO SCH (20:21)
[2024-05-16] MEDS: LEVOTHYROXINE SODIUM 175 MCG TABLET PO SCH (05:51)
[2024-05-16 06:40] LABS: Hematocrit (blood only) 37.5 % (37.0-47.0); Hemoglobin 11.9 g/dl (12.0-16.0); Mean Corpuscular Hemoglobin 27.4 pg (25.0-34.0); Mean Corpuscular Hgb Conc 31.7 g/dL (32.0-36.0); Mean Corpuscular Volume 86.4 fL (80.0-100.0); Mean Platelet Volume 10.9 fL (9.4-12.4); Platelet Count 243 K/uL (130-400); RDW Coefficient of Variation 14.8 % (11.5-14.5); RDW Standard Deviation 46.5 fL (36.4-46.3); Red Blood Count 4.34 M/uL (4.20-5.40); White Blood Count 6.79 K/ul (4.8-10.8)
[2024-05-16 07:10] LABS: BUN Creatinine Ratio 20.4 (10-20); Calcium 9.2 mg/dl (8.6-10.3); Creatinine Clr Calc Pharmacy 32.8 ml/min; Potassium 4.1 mmol/L (3.5-5.1)
[2024-05-16] MEDS: amLODIPine BESYLATE 5 MG TAB PO SCH (08:17)
[2024-05-16] MEDS: PANTOprazole 40 MG TAB PO SCH (08:19)
[2024-05-16] MEDS: DULoxetine HCL 60 MG CAP PO SCH (08:19)
[2024-05-16] MEDS: THIAMINE HCL 50 MG TABLET PO SCH (08:19)
[2024-05-16] MEDS: FUROSEMIDE 40 MG/4 ML VIAL IV SCH (08:20)
[2024-05-16] MEDS: POLYETHYLENE (MIRALAX) 17 GM PACK PO SCH (08:24)
[2024-05-16] MEDS: FENOFIBRATE NANOCRYSTALLIZED 145 MG TABLET PO SCH (12:35)
--- NOTE | 2024-05-16 13:17 | Nephrology Consultation ---
Date of Consultation May 16, 2024 Assessment & Plan (1) CKD (chronic kidney disease) stage 4, GFR 15-29 ml/min: (2) Hypoxia: (3) Anemia: (4) Hypertension: (5) Paroxysmal atrial fibrillation: (6) Proteinuria: Plan 78-year-old female with stage IIIb/IV CKD baseline creatinine 1.8-1.9 with nephrotic range proteinuria most likely secondary to diabetic nephropathy. Paraproteinemia workup was unremarkable. Admitted with progressive shortness of breath and chest pressure for several weeks. Troponin, 2D echo unremarkable. Blood pressure has been running high. Kidney function close to her baseline. Volume status slightly improved after started on IV diuretics and overall feel respiratory status also improved somewhat. -- Okay to continue on Lasix 60 mg IV daily, important to have accurate intake and output to decide on ongoing dose of diuretic. May have to except slight worsening of BUN and creatinine to improve volume status. -- If kidney function stay relatively stable, would resume losartan by tomorrow with her history of nephrotic range proteinuria, elevated blood pressure and the fact that she was not considered to be a candidate for SGLT2 inhibitors because of prior history of urinary tract infection. -- If blood pressure remain elevated, increase amlodipine to 10 mg daily. Thank you for allowing me to participate in your patient's care. It was a pleasure to see Ni History of Present Illness Reason for Consultation: stage 3B CKD, volume overload Attending Physician: Lupe Manning MD History of Present Illness Ms. Ni Tolliver is a 75-year-old female with a past medical history of stage 3B/4 CKD, HTN, DM, paroxysmal A-fib. To the hospital with progressive shortness of breath, volume overload. Nephrology consult was requested for management of volume status with history of advanced CKD. EMR records are reviewed in detail during patient's visit. Ni presented to the hospital yesterday for dobutamine stress test for history of worsening dyspnea and feeling of chest pressure with minimal exertion which started about 5 weeks ago. However, she was not able to have the dobutamine stress test done because of ongoing shortness of breath admitted to the hospital for further evaluation. Because of ongoing shortness of breath her home diuretics dose was increased to Lasix 20 mg twice a day but she did not notice any significant improvement in weight or shortness of breath. She reports gaining more than 15 pounds over last 5 weeks. Her blood pressure was noted to be elevated. Chest x-ray showed cardiomegaly and pulmonary vascular congestion. EKG showed A-fib. Echo showed EF 60 to 65%, LVH. Troponin was normal. BNP was mildly elevated. Kidney function was close to her baseline, creatinine was 2.0, electrolyte acceptable. She was given IV Lasix with improvement in urine output and respiratory status. Never smoker. She tries to follow a low-salt heart healthy diet. 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 History of stage IIIb/IV CKD baseline creatinine lately around 1.8-1.9 mg/dl secondary to diabetic nephropathy.. Has been following with Dr. Vora at CKD clinic. Prior renal imaging in February 2024 showed right kidney 13.4 and left kidney 12.3 cm no postrenal obstruction. Urinalysis with nephrotic range proteinuria of more than 60 g thought to be secondary to diabetic nephropathy, no microscopic hematuria on urinalysis. Prior paraproteinemia workup was unremarkable. Has been on losartan 100 mg daily. Blood pressure has been running high and she was getting hydralazine and metoprolol in addition to losartan. Has been on apixaban for A-fib. History of diabetes, with nephrotic range proteinuria. Overall she reports feeling slightly better this morning, respiratory status symptoms have improved on IV diuretic. She has been getting Lasix 20 mg orally once a day which was recently increased to twice a day but did not notice any significant improvement in shortness of breath or urine output. Allergies Allergy/AdvReac Type Severity Reaction Status Date / Time Aminoglycosides Allergy Intermediate rash Verified 04/11/24 13:03 neomycin Allergy Intermediate RASH Verified 04/11/24 13:03 nickel Allergy Intermediate rash Verified 04/11/24 13:03 piroxicam Allergy Intermediate RASH Verified 04/11/24 13:03 polymyxin B Allergy Intermediate rash Verified 04/11/24 13:03 house dust Allergy Mild Sneezing Verified 04/11/24 13:03 oxycodone [From Roxicodone] AdvReac Mild Shakiness Verified 04/11/24 13:03 Dwqmscn-OQG-ZfI Reductase AdvReac Mild MUSCLE AND Verified 04/11/24 13:03 Inhibitor JOINT PAIN [Mmhjrqe-Vjp-Pei Reductase Inhibitor] Home Medications Medication Instructions Recorded Confirmed Type thiamine HCl (vitamin B1) 50 mg 50 mg PO QAM #30 tabs 09/25/20 05/15/24 Rx tablet (Vitamin B-1) amlodipine 5 mg tablet 5 mg PO PM #90 tabs 05/13/21 05/15/24 Rx furosemide 20 mg tablet 20 mg PO QAM 09/15/21 05/15/24 History metoprolol tartrate 25 mg tablet 25 mg PO .NOON AND BEDTIME 02/09/23 05/15/24 History triamcinolone acetonide 0.1 % 1 applic topical BID PRN .flare ups 02/09/23 05/15/24 History topical ointment albuterol sulfate 90 mcg/actuation 1 - 2 puff inhalation Q4H PRN 06/08/23 05/15/24 Rx aerosol inhaler shortness of breath or wheezing #8.5 grams amlodipine 2.5 mg tablet 2.5 mg PO QAM #90 tabs 07/09/23 05/15/24 Rx levothyroxine 175 mcg tablet 175 mcg PO UD 08/17/23 05/15/24 History vitamins A,C,D-ykda-boswfv 4,296 1 cap PO .QAM AND PM 09/14/23 05/15/24 History mcg-226 mg-90 mg capsule (PreserVision AREDS) fluticasone propionate 110 1 puff inhalation BID PRN Wheezing 10/22/23 05/15/24 Rx mcg/actuation HFA aerosol inhaler #12 grams blood sugar diagnostic (OneTouch 12/07/23 04/11/24 History Verio test strips) insulin glargine 100 unit/mL (3 5 unit subcut HS 12/07/23 05/15/24 History mL) subcutaneous pen (Lantus Solostar U-100 Insulin) polyethylene glycol 3350 17 gram 17 g PO QAM constipation 12/07/23 05/15/24 History oral powder packet (Miralax) pen needle, diabetic 32 gauge x #100 ea 12/09/23 04/11/24 Rx " (BD Ultra-Fine Shanel Pen Needle) melatonin 3 mg tablet 5 mg PO HS 12/22/23 05/15/24 History chlorzoxazone 750 mg tablet 750 mg PO TID #270 tabs 02/22/24 05/15/24 Rx hydralazine 50 mg tablet 50 mg PO TID #270 tabs 03/01/24 05/15/24 Rx trazodone 50 mg tablet 100 mg PO HS sleep 04/11/24 05/15/24 History gabapentin 100 mg capsule 100 mg PO QID #120 caps 04/18/24 05/15/24 Rx ondansetron 4 mg disintegrating 4 mg PO Q8H PRN nausea and 05/12/24 05/15/24 Rx tablet vomiting #30 tabs CPAP Machine 05/15/24 05/15/24 History acetaminophen 500 mg tablet 1,000 mg PO TID fever or pain 05/15/24 05/15/24 History apixaban 5 mg tablet (Eliquis) 5 mg PO .NOON AND BEDTIME 05/15/24 05/15/24 History azelastine 137 mcg (0.1 %) nasal See Rx Instructions intranasal BID 05/15/24 05/15/24 History spray PRN Other cetirizine 10 mg capsule (Zyrtec) 10 mg PO DAILY PRN allergies 05/15/24 05/15/24 History cholecalciferol (vitamin D3) 25 25 mcg PO .AFTERNOON 05/15/24 05/15/24 History mcg (1,000 unit) capsule cinacalcet 30 mg tablet (Sensipar) 30 mg PO .AFTERNOON 05/15/24 05/15/24 History duloxetine 30 mg capsule,delayed 30 mg PO .AFTERNOON 05/15/24 05/15/24 History release duloxetine 60 mg capsule,delayed 60 mg PO QAM 05/15/24 05/15/24 History release fenofibrate nanocrystallized 145 145 mg PO .NOON 05/15/24 05/15/24 History mg tablet fluticasone propionate 50 2 spray intranasal BID PRN Other 05/15/24 05/15/24 History mcg/actuation nasal spray,suspension losartan 100 mg tablet 100 mg PO .AFTERNOON 05/15/24 05/15/24 History pregabalin 75 mg capsule (Lyrica) 75 mg PO UD 05/15/24 05/15/24 History rabeprazole 20 mg tablet,delayed 20 mg PO QAM 05/15/24 05/15/24 History release (AcipHex) Patient History Medical History NATASHA (acute kidney injury) COVID GERD (gastroesophageal reflux disease) Toxic encephalopathy Atrial fibrillation with slow ventricular response Fall Primary hyperparathyroidism Hypercalcemia Sinus bradycardia Insomnia Familial tremor Dysphagia Dysesthesia Allergic rhinitis Seborrheic keratosis Hyperparathyroidism Loss of protective sensation of skin of deformed foot Diabetic peripheral neuropathy Controlled type 2 diabetes mellitus with neurologic complication, with long-term current use of insulin Osteoarthritis Degenerative disc disease Chronic back pain GERD (gastroesophageal reflux disease) Septicemia TREATED AT [facility] (BEGINNING OF 2017) AFFECTED RIGHT LEG. Hypothyroidism Hyperlipidemia Hallux valgus (acquired), left foot Callus Acquired hallux valgus of right foot Acquired claw toe of right foot Acquired claw toe of left foot Chest pain Surgical History Nausea and vomiting after administration of anesthetic agent History of bilateral tubal ligation Fusion of spine X3 L1-L5 History of total shoulder replacement RIGHT History of total hip arthroplasty BILATERAL History of total knee replacement BILATERAL History of herniorrhaphy Laparoscopic abdominal wall hernia repair with mesh 04/28/13 Dr. Morton Laparoscopy, lysis of omental adhesions and reduction incarcerated fat resection, repair multiple hernias 04/13/2011 Dr. Morton History of appendectomy LAP History of cholecystectomy LAP Lynn and ventral hernia repair, biopsy peritoneal nodules 06/16/02 Dr. Manuel Anne History of esophagogastroduodenoscopy (EGD) History of colonoscopy History of cataract surgery BILATERAL History of tonsillectomy History of adenoidectomy Family History Father Family history of diabetes mellitus Arthritis Hypertension Stroke Lung disease Obesity Diabetes Mother Arthritis Diabetes Hypertension Stroke Obesity Depression Brother Depression Suicide Aunt Uterine cancer Grandfather (Maternal) Colorectal cancer Aunt Colorectal cancer Denies family history of Prostate cancer Myocardial infarction Breast cancer Social History Smoking Status: Never smoker Second Hand Exposure: No; Do You Dip or Chew Tobacco: No; Tobacco Cessation Education Requested by Patient: No Hx Alcohol Use: No Hx Substance Use: No Preferred Language: Lithuanian Communication Ability: Effective Visual Impairment: Limited Hearing Ability: Normal Dot Etcher Required: No Beliefs That Will Affect Care: None marital status: Current Living Situation: Spouse current occupational status: retired How many Children do You have: 4 Other Information That Helps Us Care for You: No Feels Safe at Home: Yes Safety Concerns: Feels Safe At This Time Childhood Exposure to Second-Hand Smoke: Yes Diet: diabetic and regular caffeine: Yes (tea daily) Dental Care, Regularly: Yes Physical Activity Frequency: 3-4 Times per Week Seatbelt Use: always Sunscreen Use: Yes Do you think of yourself as: straight/heterosexual Gender Identity: Male Assistive Devices: CPAP, Glasses and Hearing Aid - Bilateral Review of Systems Review of Systems: Detailed review of system was done and pertinent positives and negatives are mentioned above. Physical Exam Constitutional: WD/WN, vitals as above + obese; no acute distress Eyes: + anicteric sclerae Neck: normal visual inspection Respiratory: no respiratory distress Auscultation: lungs clear to au scultation bilaterally Cardiovascular: Rate/Rhythm: + irregularly irregular Heart Sounds: normal S1 and normal S2 Extremities: + edema (trace b/l LE edema.) Gastrointestinal (Abdomen): Inspection/Auscultation: abdomen normal to inspection Percussion/Palpation: abdomen soft; abdomen nontender Musculoskeletal: Extremities: extremities normal to inspection Skin: no rashes, warm and dry Neurologic: no focal motor deficits Psychiatric: Orientation: alert and oriented x 3 Affect: euthymic affect Results & Data Vital Signs (Past 12 Hours) Vital Signs Temp Pulse Resp BP Pulse Ox O2 Del Method O2 Flow Rate 05/16/24 10:35 36.8 C 75 18 144/87 H 97 Nasal Cannula 05/16/24 07:35 36.6 C 88 16 186/109 H 96 Nasal Cannula 05/16/24 07:00 Nasal Cannula 3 05/16/24 03:23 36.8 C 60 20 148/73 H 96 Nasal Cannula 3 PG Care Time/CCT Total # of Minutes Spent Total Time Spent with Patient: Total time spent is greater than 50% in coordination of care (as documented) at patient's floor/unit and/or counseling patient: Coding Level of Care Code 42523 INT INP/OBS CARE 75MIN Diagnoses CKD (chronic kidney disease) stage 4, GFR 15-29 ml/min N18.4 Hypoxia R09.02 Anemia D64.9 Primary hypertension I10 Hypertension type: primary hypertension Paroxysmal atrial fibrillation I48.0 Proteinuria R80.9 (4) Hypertension Hypertension type: primary hypertension Qualified Code(s): I10 - Essential (primary) hypertension
--- NOTE | 2024-05-16 14:36 | Hospitalist Progress Note ---
Date of Service May 16, 2024 Assessment & Plan (1) Diastolic CHF: Plan: With acute on chronic HFpEF-patient with worsening dyspnea x 5 weeks and increasing LE edema secondary to CKD/nephrotic range proteinuria secondary to diabetic nephropathy and acute on chronic HFpEF. Found to be hypoxemic on admission requiring 3 L nasal cannula Echocardiogram here with preserved EF 60-65%, mild AI, moderate TR Chest x-ray with pulmonary edema and pulmonary vascular congestion, small pleural effusions BNP elevated at 456 Feeling much improved after being given Lasix 60 mg IV once daily x 2 doses since admission Creatinine is increased from previous at 2.01 but may need to except some elevation in BUN and creatinine to achieve improved volume status Appreciate nephrology consultation Continue blood pressure control, rate control for atrial fibrillation Continue IV Lasix 60 mg daily Strict I&O monitoring and Daily weights, low-sodium diet and fluid restriction Placed losartan on hold for now due to rising creatinine but will resume as soon as possible given proteinuria Not a candidate for SGLT2 inhibitor because of history of recurrent UTI (2) Hypoxia: Plan: Currently requiring 3 L nasal cannula and is not on oxygen at baseline Secondary to volume overload from renal failure and diastolic heart failure VBG with fairly chronic appearing respiratory acidosis at 7.31/63 Viral respiratory PCR for [id number] is negative Wean off oxygen as able to with diuresis-will need a two-step walk test prior to discharge (3) CKD (chronic kidney disease) stage 4, GFR 15-29 ml/min: Plan: Baseline creatinine around 1.7-1.8, creatinine now up to 2.01 with IV diuretics With 3+ protein on urinalysis, nephrotic range proteinuria from diabetic nephropathy-recent Protein/Cr ratio 6.7 indicating nephrotic range continue cinacalcet Consult nephrology appreciated Follow-up BMP (4) Controlled type 2 diabetes mellitus, with long-term current use of insulin: Plan: Most recent A1C 6.1% On 5 units Lantus HS at home, continue Continue T2DM diet Polyneuropathy - continue chlorzoxazone and Lyrica. She is also on gabapentin- probably don't need to be on both Lyrica and gabapentin as they are almost the same drug. Continue Cymbalta 90 mg daily (5) Paroxysmal atrial fibrillation: Plan: Remains in rate controlled atrial fibrillation here recent TSH WNL given age Anticoagulated with Eliquis, rate controlled with metoprolol Continue to monitor on Telemetry (6) Chest pressure: Plan: patient with history of midsternal chest pressure for multiple weeks at rest- likely from CHF, pulm edema, hypoxemia was to have dobutamine stress test today with Dr. Powers, but unable to complete given dyspnea-most likely secondary to CHF and seems to resolved with diuresis Troponin negative, EKG showing A fib, no ischemic changes Plan Chronic stable diagnoses: HTN - continue amlodipine, metoprolol, and lasix. Hold losartan Anxiety/depression - continue duloxetine, hydralazine, melatonin, trazodone hypothyroidism TSH recently elevated at 8 and had an extra 87.5mcg of LT4 added on Sundays, continue same dose levothyroxine and recheck LFTs in 4-6 weeks chronic constipation continue MiraLAX daily GERD - continue PPI Thiamine Deficiency continue supplement TIERRA - continue CPAP HS macular degeneration - received injection Wednesday; next injection due in June Insomnia-increase melatonin to 6mg hs and add Zoloft for mood and sleep. She has been tkaing Hunetr prn sleep at home-may be helpful due to serotoin effect? VTE ppx: Teds, SCDs, Eliquis Code status: Full code Dispo: Med surg/ tele Admission and Anticipated Discharge Date Admission Date: May 15, 2024 Subjective Patient reports feeling much better today, leg swelling is down, shortness of breath is improving. She reports having trouble sleeping and has been taking Zofran every night at home for sleep. Her main complaint of not being able to sleep is because of the neuropathic pain in her feet. Telemetry with atrial fibrillation with rates in the 50s to 70s with a brief dip to the 30s overnight Physical Exam Constitutional: WD/WN, vitals as above + obese Respiratory: normal respiratory effort; no cough Auscultation: + crackles (Bibasilar); no rhonchi and no wheezes Cardiovascular: Rate/Rhythm: regular rate and + irregularly irregular Heart Sounds: no murmur Extremities: + edema (2+ pitting edema to the thighs bilaterally) Gastrointestinal (Abdomen): normal bowel sounds, soft, nontender, no hepatosplenomegaly Psychiatric: A+Ox3, euthymic affect Results & Data Results & Data Vital Signs (Past 12 Hours) Vital Signs Temp Pulse Pulse Resp BP Pulse Ox O2 Del Method 11/05/24 13:37 70 05/16/24 10:35 36.8 C 75 18 144/87 H 97 Nasal Cannula 05/16/24 07:35 36.6 C 88 16 186/109 H 96 Nasal Cannula 05/16/24 07:00 Nasal Cannula 05/16/24 03:23 36.8 C 60 20 148/73 H 96 Nasal Cannula O2 Flow Rate 05/16/24 13:37 05/16/24 10:35 05/16/24 07:35 05/16/24 07:00 3 05/16/24 03:23 3 Laboratory Results CBC, BMP, magnesium reviewed Urine spot protein to creatinine ratio reviewed Echocardiogram reviewed PG Care Time/CCT Total # of Minutes Spent Total Time Spent with Patient: Total time spent is greater than 50% in coordination of care (as documented) at patient's floor/unit and/or counseling patient: Coding Level of Care Code 57425 SUB INP/OBS CARE 350MIN Diagnoses Chronic diastolic congestive heart failure I50.32 Heart failure chronicity: chronic Hypoxia R09.02 CKD (chronic kidney disease) stage 4, GFR 15-29 ml/min N18.4 Controlled type 2 diabetes mellitus, with long-term current use of insulin E11.9; Z79.4 Paroxysmal atrial fibrillation I48.0 Chest pressure R07.89 (1) Diastolic CHF Heart failure chronicity: chronic Qualified Code(s): I50.32 - Chronic diastolic (congestive) heart failure
[2024-05-16] MEDS ORDERED: Nursing to Pharmacy Communication SCH (19:30)
[2024-05-16] MEDS: SERTRALINE HCL 50 MG TABLET PO SCH (20:52)
[2024-05-16] MEDS: MELATONIN 3 MG TAB PO SCH (20:53)
[2024-05-16] MEDS: APIXABAN 5 MG TABLET PO SCH (20:54)
[2024-05-17 07:55] LABS: Hematocrit (blood only) 39.9 % (37.0-47.0); Hemoglobin 12.7 g/dl (12.0-16.0); Mean Corpuscular Hemoglobin 27.2 pg (25.0-34.0); Mean Corpuscular Hgb Conc 31.8 g/dL (32.0-36.0); Mean Corpuscular Volume 85.4 fL (80.0-100.0); Mean Platelet Volume 10.6 fL (9.4-12.4); Platelet Count 245 K/uL (130-400); RDW Coefficient of Variation 14.6 % (11.5-14.5); RDW Standard Deviation 45.3 fL (36.4-46.3); Red Blood Count 4.67 M/uL (4.20-5.40); White Blood Count 6.14 K/ul (4.8-10.8)
[2024-05-17 08:18] LABS: BUN Creatinine Ratio 19.8 (10-20); Calcium 9.6 mg/dl (8.6-10.3); Creatinine Clr Calc Pharmacy 34.6 ml/min; Potassium 4.1 mmol/L (3.5-5.1)
[2024-05-17 08:36] LABS: Albumin Level 3.8 gm/dl (3.4-5.0); Phosphorus 3.8 mg/dl (2.5-4.9)
[2024-05-17 08:38] LABS: Ferritin 16.2 ng/ml (8-388)
[2024-05-17 08:41] LABS: Folate (Folic Acid),Ser orPlas 10.22 ng/ml (>5.38)
--- NOTE | 2024-05-17 10:31 | Nephrology Progress Note ---
Date of Service May 17, 2024 Assessment & Plan (1) CKD (chronic kidney disease) stage 4, GFR 15-29 ml/min: (2) Hypoxia: (3) Anemia: (4) Hypertension: (5) Paroxysmal atrial fibrillation: (6) Proteinuria: Plan 78-year-old female with stage IIIb/IV CKD baseline creatinine 1.8-1.9 with nephrotic range proteinuria most likely secondary to diabetic nephropathy. Paraproteinemia workup was unremarkable. Admitted with progressive shortness of breath and chest pressure for several weeks. Troponin, 2D echo unremarkable. Blood pressure has been running high. Kidney function close to her baseline. Volume status slightly improved after started on IV diuretics and overall feel respiratory status also improved somewhat. Kidney function stable, overall volume status improved, net negative. Blood pressure remain elevated. --Resume losartan at 50 mg daily, change Lasix to 60 mg orally once daily, important to have accurate intake and output to decide on ongoing dose of diuretic. May have to except slight worsening of BUN and creatinine to improve volume status. --lab in am Admission and Anticipated Discharge Date Admission Date: May 15, 2024 Karlie Dan was seen and evaluated this morning. She reports overall feeling well, feels like she is responding to the diuretics and net negative almost 1 L but continued to feel short of breath if she takes oxygen off. Kidney function staying relatively stable, electrolyte acceptable. Blood pressure remains elevated. Review of Systems Review of Systems: Detailed review of system was done and pertinent positives and negatives are mentioned above. Physical Exam Constitutional: WD/WN, vitals as above + obese; no acute distress Eyes: + anicteric sclerae Neck: normal visual inspection Respiratory: no respiratory distress Auscultation: lungs clear to auscultation bilaterally Cardiovascular: Rate/Rhythm: + irregularly irregular Heart Sounds: normal S1 and normal S2 Extremities: no edema Musculoskeletal: Extremities: extremities normal to inspection Skin: no rashes, warm and dry Neurologic: no focal motor deficits Psychiatric: Orientation: alert and oriented x 3 Affect: euthymic affect Results & Data Vital Signs (Past 12 Hours) Vital Signs Temp Pulse Pulse Resp BP Pulse Ox O2 Del Method 05/17/24 09:25 Nasal Cannula 05/17/24 08:10 36.7 C 65 18 169/88 H 95 Nasal Cannula 05/17/24 07:15 59 L 05/17/24 04:08 36.9 C 71 20 150/89 H 96 CPAP 05/17/24 00:21 36.8 C 64 20 141/80 H 93 CPAP 05/16/24 22:53 Nasal Cannula, CPAP O2 Flow Rate 05/17/24 09:25 3 05/17/24 08:10 2 05/17/24 07:15 05/17/24 04:08 05/17/24 00:21 2 05/16/24 22:53 3 PG Care Time/CCT Total # of Minutes Spent Total Time Spent with Patient: Total time spent is greater than 50% in coordination of care (as documented) at patient's floor/unit and/or counseling patient: Coding Level of Care Code 25389 SUB INP/OBS CARE 2/35MIN Diagnoses CKD (chronic kidney disease) stage 4, GFR 15-29 ml/min N18.4 Hypoxia R09.02 Anemia D64.9 Primary hypertension I10 Hypertension type: primary hypertension Paroxysmal atrial fibrillation I48.0 Proteinuria R80.9 (4) Hypertension Hypertension type: primary hypertension Qualified Code(s): I10 - Essential (primary) hypertension
--- NOTE | 2024-05-17 16:21 | Hospitalist Progress Note ---
Date of Service May 17, 2024 Assessment & Plan (1) Diastolic CHF: Plan: With acute on chronic HFpEF-patient with worsening dyspnea x 5 weeks and increasing LE edema secondary to CKD/nephrotic range proteinuria secondary to diabetic nephropathy and acute on chronic HFpEF. 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31/63 Viral respiratory PCR for [id number] is negative Wean off oxygen as able to with diuresis-will need a two-step walk test prior to discharge (3) CKD (chronic kidney disease) stage 4, GFR 15-29 ml/min: Plan: Baseline creatinine around 1.7-1.8, creatinine then up to 2.01 with IV diuretics. Now improved to 1.9 With 3+ protein on urinalysis, nephrotic range proteinuria from diabetic nephropathy-recent Protein/Cr ratio 6.7 indicating nephrotic range continue cinacalcet Consult nephrology appreciated-needs outpatient f/u with Nephro Follow-up BMP (4) Iron deficiency: Plan: Hgb only mildly low-normal but MCV low nad Fe studies show significant iron deficiency with transferrin sat 10%, ferritin only 16 She has not had a colonoscopy in over 10 years and cannot recall last EGD Give IV Venofer given ongoing issues with constiaption-avoid po Fe pills Recommend outpt GI eval for Fe-def anemia although may not be a great candidate for anesthesia give chronic cardiac and renal issues (5) Controlled type 2 diabetes mellitus, with long-term current use of insulin: Plan: Most recent A1C 6.1% On 5 units Lantus HS at home, continue Continue T2DM diet Polyneuropathy - continue chlorzoxazone and Lyrica. She is also on gabapentin- probably don't need to be on both Lyrica and gabapentin as they are almost the same drug. Defer to PCP to discontinue gabapentin Continue Cymbalta 90 mg daily, Tylenol COnsider adding Elavil low dose for neuropathy at bedtime (6) Paroxysmal atrial fibrillation: Plan: Remains in rate controlled atrial fibrillation here recent TSH WNL given age Anticoagulated with Eliquis, rate controlled with metoprolol Continue to monitor on Telemetry (7) Chest pressure: Plan: patient with history of midsternal chest pressure for multiple weeks at rest- likely from CHF, pulm edema, hypoxemia was to have dobutamine stress test here prior to admission with Dr. Powers, but unable to complete given dyspnea-most likely secondary to CHF and seems to resolved with diuresis Troponin negative, EKG showing A fib, no ischemic changes Plan Chronic stable diagnoses: HTN - continue amlodipine, metoprolol, and lasix. Resuming home losartan Anxiety/depression - continue duloxetine, hydralazine, melatonin, trazodone --> started sertraline 25mg po hs for depression and insomnia hypothyroidism TSH recently elevated at 8 and had an extra 87.5mcg of LT4 added on Sundays, continue same dose levothyroxine and recheck LFTs in 4-6 weeks chronic constipation continue MiraLAX daily GERD - continue PPI Thiamine Deficiency continue supplement TIERRA - continue CPAP HS macular degeneration - received injection Wednesday; next injection due in June Insomnia-increase melatonin to 6mg hs and add Zoloft for mood and sleep. She has been taking Hunter prn sleep at home-may be helpful due to serotonin effect? VTE ppx: Teds, SCDs, Eliquis Code status: Full code Dispo: Med surg/ tele , possible discharge to home tomorrow if improving. Will need a 2 step walk test for home O2 qualification before she leaves Admission and Anticipated Discharge Date Admission Date: May 15, 2024 Subjective Pt reports still SOB without wearing supplemental O2 but overall feeling better. I discussed her care with Nephrology Tele with Afib, rates 50-70s Physical Exam Constitutional: WD/WN, vitals as above + obese Respiratory: normal respiratory effort; no cough Auscultation: no crackles, no rhonchi and no wheezes Cardiovascular: Rate/Rhythm: regular rate and + irregularly irregular Heart Sounds: no murmur Extremities: + edema (1+ pitting edema to the thighs bilaterally) Gastrointestinal (Abdomen): normal bowel sounds, soft, nontender, no hepatosplenomegaly Psychiatric: A+Ox3, euthymic affect Results & Data Results & Data Vital Signs (Past 12 Hours) Vital Signs Temp Pulse Pulse Resp BP Pulse Ox O2 Del Method 05/17/24 15:48 36.9 C 70 18 149/81 H 94 Nasal Cannula 05/17/24 14:06 63 05/17/24 12:53 36.8 C 68 18 167/87 H 96 Nasal Cannula 05/17/24 09:25 Nasal Cannula 05/17/24 08:10 36.7 C 65 18 169/88 H 95 Nasal Cannula 05/17/24 07:15 59 L O2 Flow Rate 05/17/24 15:48 2 05/17/24 14:06 05/17/24 12:53 2 05/17/24 09:25 3 05/17/24 08:10 2 05/17/24 07:15 Laboratory Results BMP, CBC< iron studies, B12, folate reviewed PG Care Time/CCT Total # of Minutes Spent Total Time Spent with Patient: Total time spent is greater than 50% in coordination of care (as documented) at patient's floor/unit and/or counseling patient: Coding Level of Care Code 54262 SUB INP/OBS CARE 2/35MIN Diagnoses Chronic diastolic congestive heart failure I50.32 Heart failure chronicity: chronic Hypoxia R09.02 CKD (chronic kidney disease) stage 4, GFR 15-29 ml/min N18.4 Iron deficiency E61.1 Controlled type 2 diabetes mellitus, with long-term current use of insulin E11.9; Z79.4 Paroxysmal atrial fibrillation I48.0 Chest pressure R07.89 (1) Diastolic CHF Heart failure chronicity: chronic Qualified Code(s): I50.32 - Chronic diastolic (congestive) heart failure
[2024-05-17] MEDS: LOSARTAN POTASSIUM 50 MG TAB PO STA (16:57)
[2024-05-17] MEDS: IRON SUCROSE 200 MG in SODIUM CHLORIDE 0.9% 100 ML IV ONE (17:02)
[2024-05-18 06:17] LABS: Basophils # (auto) 0.06 K/uL (0.00-0.20); Eosinophils # (auto) 0.23 K/uL (0.00-0.50); Eosinophils % (auto) 3.7 %; Hematocrit (blood only) 39.3 % (37.0-47.0); Hemoglobin 12.1 g/dl (12.0-16.0); Immature Granulocytes # (auto) 0.07 K/uL (0.01-0.20); Immature Granulocytes % (auto) 1.1 %; Lymphocytes # (auto) 0.84 K/uL (1.20-3.40); Lymphocytes % (auto) 13.4 %; Mean Corpuscular Hemoglobin 26.7 pg (25.0-34.0); Mean Corpuscular Hgb Conc 30.8 g/dL (32.0-36.0); Mean Corpuscular Volume 86.8 fL (80.0-100.0); Mean Platelet Volume 10.7 fL (9.4-12.4); Monocytes # (auto) 1.22 K/uL (0.11-0.59); Monocytes % (auto) 19.4 %; Neutrophils # (auto) 3.86 K/uL (1.40-6.50); Neutrophils % (auto) 61.4 %; Platelet Count 241 K/uL (130-400); RDW Coefficient of Variation 14.7 % (11.5-14.5); RDW Standard Deviation 46.5 fL (36.4-46.3); Red Blood Count 4.53 M/uL (4.20-5.40); White Blood Count 6.28 K/ul (4.8-10.8)
[2024-05-18 06:27] LABS: Albumin Level 3.4 gm/dl (3.4-5.0); BUN Creatinine Ratio 19.1 (10-20); Calcium 9.5 mg/dl (8.6-10.3); Creatinine Clr Calc Pharmacy 30.6 ml/min; Magnesium 2.1 mg/dl (1.7-2.4); Potassium 4.3 mmol/L (3.5-5.1)
[2024-05-18] MEDS: LOSARTAN POTASSIUM 50 MG TAB PO SCH (07:25)
[2024-05-18] MEDS: FUROSEMIDE 20 MG TAB PO SCH (07:26)
--- NOTE | 2024-05-18 10:05 | Cardiology Consultation ---
Date of Consultation May 18, 2024 Assessment & Plan (1) Chest pressure: (2) Pulmonary edema: (3) Diastolic CHF: (4) CKD (chronic kidney disease) stage 4, GFR 15-29 ml/min: (5) Persistent atrial fibrillation: Plan Assessment: 78 year old female admitted for acute on chronic HF exacerbation after presenting for OP testing. Cardiology requested for assessment/recommendations. Plan: -Dobutamine stress test was aborted due to need for ER evaluation for evidence of acute HF exacerbation. -Since time of admission, patient has been successfully diuresed. Review of records shows a 8Kg weight deficit. She is euvolemic on exam. -In agreement with Nephrology recommendations to continue forward with Furosemide 40mg PO Daily at time of discharge. -Continue Metoprolol and Losartan as part of HF regimen. -Encourage daily AM dry weights and keep a record. Low Sodium diet less than 2000mg daily. -patient should have OP labs in one week to monitor renal function and electrolytes, or as per management of nephrology. -Patient is ok for discharge form a cardiac perspective with ok with nephrology and primary team. -She is currently scheduled for OP cardiology follow on on 06/13/2024 and should keep that appointment for close follow up. Case has been discussed with Dr. York. Further recommendations regarding plan of care as per his assessment. I spent a total of 40 minutes on the date of service in preparation, delivery, documentation of the care provided to the patient excluding any time spent in the performance of separately billed services. KORTNEY [facility] Cardiology [facility] Supervising Physician Co-Signing Physician Notes I have personally performed a history and physical examination on the patient. I have reviewed the advance practitioner's documentation, and I agree with, and take responsibility for the plan of care. 78-year-old female with chronic kidney disease, chronic heart failure with preserved ejection fraction, and hypertension presented for outpatient dobutamine stress echo 05/15/2024. Stress testing aborted due to evidence of acute decompensated heart failure/volume overload patient patient subsequently admitted for IV diuresis. Weight is down to 8 kg. Appears euvolemic with markedly improved edema. Agree with transition of IV furosemide to oral medication. Renal function near baseline. Repeat basic metabolic panel as outpatient in 1 week. I spent a total of 35 minutes on the date of service in preparation, delivery, and documentation of the care provided to this patient, excluding any time spent in the performance of separately billed services. Richard Robles DO, [facility] History of Present Illness Reason for Consultation: Chest pain Requesting Physician: [facility] Attending Physician: Teodoro Thomas MD History of Present Illness HPI: patient is a 78 year old female with PMHx significant for HFpEF, longstanding persistent atrial fibrillation, CKD stage IV, Type II DM, HTN, HLD, GERD, hypothyroidism, obesity, anemia, and macular degeneration that presented to the ER after recommendation from the cardio-pulmonary department. Her recent history dates back to patient endorsing some progressively worsening chest pressure, dyspnea on exertion and decreased exercise tolerance. Patient was ordered a dobutamine stress echocardiogram scheduled OP 05/15/2024; however, upon presentation was feeling aweful with symptoms as noted above. The resting echocardiogram images were obtained, but the dobutamine portion was aborted as Dr. Powers felt she needed to be seen in the ER for acute HF exacerbation symptoms. EKG A-fib rate 67bpm. Chest x-ray on admission IMPRESSION: Cardiomegaly. Mild interstitial pulmonary edema with possible small bilateral pleural effusions and mild bibasilar opacities. Patient was admitted for aggressive diuresis. Patient is out of bed in a chair today upon examination. She is feeling markedly better and reports resolution of her chest pain/pressure, and endorses significant improvement in her breathing. Denies any new cardiac concerns. Allergies Allergy/AdvReac Type Severity Reaction Status Date / Time Aminoglycosides Allergy Intermediate rash Verified 04/11/24 13:03 neomycin Allergy Intermediate RASH Verified 04/11/24 13:03 nickel Allergy Intermediate rash Verified 04/11/24 13:03 piroxicam Allergy Intermediate RASH Verified 04/11/24 13:03 polymyxin B Allergy Intermediate rash Verified 04/11/24 13:03 house dust Allergy Mild Sneezing Verified 04/11/24 13:03 oxycodone [From Roxicodone] AdvReac Mild Shakiness Verified 04/11/24 13:03 Brwobtl-YPS-AeZ Reductase AdvReac Mild MUSCLE AND Verified 04/11/24 13:03 Inhibitor JOINT PAIN [Yxlvtuz-Bkf-Cfm Reductase Inhibitor] Home Medications Medication Instructions Recorded Confirmed Type thiamine HCl (vitamin B1) 50 mg 50 mg PO QAM #30 tabs 09/25/20 05/15/24 Rx tablet (Vitamin B-1) amlodipine 5 mg tablet 5 mg PO PM #90 tabs 05/13/21 05/15/24 Rx furosemide 20 mg tablet 20 mg PO QAM 09/15/21 05/15/24 History metoprolol tartrate 25 mg tablet 25 mg PO .NOON AND BEDTIME 02/09/23 05/15/24 History triamcinolone acetonide 0.1 % 1 applic topical BID PRN .flare ups 02/09/23 05/15/24 History topical ointment albuterol sulfate 90 mcg/actuation 1 - 2 puff inhalation Q4H PRN 06/08/23 05/15/24 Rx aerosol inhaler shortness of breath or wheezing #8.5 grams amlodipine 2.5 mg tablet 2.5 mg PO QAM #90 tabs 07/09/23 05/15/24 Rx levothyroxine 175 mcg tablet 175 mcg PO UD 08/17/23 05/15/24 History vitamins A,C,K-jeye-ntuqwq 4,296 1 cap PO .QAM AND PM 09/14/23 05/15/24 History mcg-226 mg-90 mg capsule (PreserVision AREDS) fluticasone propionate 110 1 puff inhalation BID PRN Wheezing 10/22/23 05/15/24 Rx mcg/actuation HFA aerosol inhaler #12 grams blood sugar diagnostic (OneTouch 12/07/23 04/11/24 History Verio test strips) insulin glargine 100 unit/mL (3 5 unit subcut HS 12/07/23 05/15/24 History mL) subcutaneous pen (Lantus Solostar U-100 Insulin) polyethylene glycol 3350 17 gram 17 g PO QAM constipation 12/07/23 05/15/24 History oral powder packet (Miralax) pen needle, diabetic 32 gauge x #100 ea 12/09/23 04/11/24 Rx " (BD Ultra-Fine Shanel Pen Needle) melatonin 3 mg tablet 5 mg PO HS 12/22/23 05/15/24 History chlorzoxazone 750 mg tablet 750 mg PO TID #270 tabs 02/22/24 05/15/24 Rx hydralazine 50 mg tablet 50 mg PO TID #270 tabs 03/01/24 05/15/24 Rx trazodone 50 mg tablet 100 mg PO HS sleep 04/11/24 05/15/24 History gabapentin 100 mg capsule 100 mg PO QID #120 caps 04/18/24 05/15/24 Rx ondansetron 4 mg disintegrating 4 mg PO Q8H PRN nausea and 05/12/24 05/15/24 Rx tablet vomiting #30 tabs CPAP Machine 05/15/24 05/15/24 History acetaminophen 500 mg tablet 1,000 mg PO TID fever or pain 05/15/24 05/15/24 History apixaban 5 mg tablet (Eliquis) 5 mg PO .NOON AND BEDTIME 05/15/24 05/15/24 History azelastine 137 mcg (0.1 %) nasal See Rx Instructions intranasal BID 05/15/24 05/15/24 History spray PRN Other cetirizine 10 mg capsule (Zyrtec) 10 mg PO DAILY PRN allergies 05/15/24 05/15/24 History cholecalciferol (vitamin D3) 25 25 mcg PO .AFTERNOON 05/15/24 05/15/24 History mcg (1,000 unit) capsule cinacalcet 30 mg tablet (Sensipar) 30 mg PO .AFTERNOON 05/15/24 05/15/24 History duloxetine 30 mg capsule,delayed 30 mg PO .AFTERNOON 05/15/24 05/15/24 History release duloxetine 60 mg capsule,delayed 60 mg PO QAM 05/15/24 05/15/24 History release fenofibrate nanocrystallized 145 145 mg PO .NOON 05/15/24 05/15/24 History mg tablet fluticasone propionate 50 2 spray intranasal BID PRN Other 05/15/24 05/15/24 History mcg/actuation nasal spray,suspension losartan 100 mg tablet 100 mg PO .AFTERNOON 05/15/24 05/15/24 History pregabalin 75 mg capsule (Lyrica) 75 mg PO UD 05/15/24 05/15/24 History rabeprazole 20 mg tablet,delayed 20 mg PO QAM 05/15/24 05/15/24 History release (AcipHex) Patient History Medical History NATASHA (acute kidney injury) COVID GERD (gastroesophageal reflux disease) Toxic encephalopathy Atrial fibrillation with slow ventricular response Fall Primary hyperparathyroidism Hypercalcemia Sinus bradycardia Insomnia Familial tremor Dysphagia Dysesthesia Allergic rhinitis Seborrheic keratosis Hyperparathyroidism Loss of protective sensation of skin of deformed foot Diabetic peripheral neuropathy Controlled type 2 diabetes mellitus with neurologic complication, with long-term current use of insulin Osteoarthritis Degenerative disc disease Chronic back pain GERD (gastroesophageal reflux disease) Septicemia TREATED AT [facility] (BEGINNING OF 2017) AFFECTED RIGHT LEG. Hypothyroidism Hyperlipidemia Hallux valgus (acquired), left foot Callus Acquired hallux valgus of right foot Acquired claw toe of right foot Acquired claw toe of left foot Chest pain Surgical History Nausea and vomiting after administration of anesthetic agent History of bilateral tubal ligation Fusion of spine X3 L1-L5 History of total shoulder replacement RIGHT History of total hip arthroplasty BILATERAL History of total knee replacement BILATERAL History of herniorrhaphy Laparoscopic abdominal wall hernia repair with mesh 04/28/13 Dr. Morton Laparoscopy, lysis of omental adhesions and reduction incarcerated fat resection, repair multiple hernias 04/13/2011 Dr. Morton History of appendectomy LAP History of cholecystectomy LAP Lynn and ventral hernia repair, biopsy peritoneal nodules 06/16/02 Dr. Manuel Anne History of esophagogastroduodenoscopy (EGD) History of colonoscopy History of cataract surgery BILATERAL History of tonsillectomy History of adenoidectomy Family History Father Family history of diabetes mellitus Arthritis Hypertension Stroke Lung disease Obesity Diabetes Mother Arthritis Diabetes Hypertension Stroke Obesity Depression Brother Depression Suicide Aunt Uterine cancer Grandfather (Maternal) Colorectal cancer Aunt Colorectal cancer Denies family history of Prostate cancer Myocardial infarction Breast cancer Social History Smoking Status: Never smoker Second Hand Exposure: No; Do You Dip or Chew Tobacco: No; Hx Alcohol Use: No Hx Substance Use: No Preferred Language: [place] Communication Ability: Effective Visual Impairment: Limited Hearing Ability: Normal Nuclear Medicine Supervisor Required: No Beliefs That Will Affect Care: None marital status: Current Living Situation: Spouse current occupational status: retired How many Children do You have: 4 Feels Safe at Home: Yes Childhood Exposure to Second-Hand Smoke: Yes Diet: diabetic and regular caffeine: Yes (tea daily) Dental Care, Regularly: Yes Physical Activity Frequency: 3-4 Times per Week Seatbelt Use: always Sunscreen Use: Yes Do you think of yourself as: straight/heterosexual Gender Identity: Male Assistive Devices: CPAP, Glasses, Oxygen - at Night, Stair Lift and Walker Review of Systems Review of Systems: All systems reviewed & are unremarkable except as noted in HPI & below Physical Exam Constitutional: well developed and well nourished; no acute distress and not ill appearing Neck: normal visual inspection and trachea midline Respiratory: normal respiratory effort, lungs clear to auscultation Auscultation: no crackles, no rales, no rhonchi and no wheezes Cardiovascular: Rate/Rhythm: + irregularly irregular Heart Sounds: normal S1, normal S2 and + murmur (+1/6) Vessels: no JVD Extremities: + edema (trace BLE) Skin: no rashes, warm and dry Psychiatric: A+Ox3, euthymic affect Results & Data Vital Signs (Past 12 Hours) Vital Signs Temp Pulse Pulse Resp BP Pulse Ox O2 Del Method 05/18/24 07:17 36.7 C 63 18 133/64 95 Nasal Cannula 05/18/24 07:11 64 05/18/24 07:00 Nasal Cannula 05/18/24 04:01 36.7 C 58 L 20 129/69 92 CPAP 05/17/24 23:09 36.5 C 63 20 123/80 96 CPAP O2 Flow Rate 05/18/24 07:17 3 05/18/24 07:11 05/18/24 07:00 3 05/18/24 04:01 2 05/17/24 23:09 2 Laboratory Results CBC 05/18/24 Range/Units 05:34 WBC 6.28 (4.8-10.8) K/ul RBC 4.53 (4.20-5.40) M/uL Hgb 12.1 (12.0-16.0) g/dl Hct 39.3 (37.0-47.0) % Plt Count 241 (130-400) K/uL Neut # (Auto) 3.86 (1.40-6.50) K/uL Lymph # (Auto) 0.84 L (1.20-3.40) K/uL [place] # (Auto) 1.22 H (0.11-0.59) K/uL Eos # (Auto) 0.23 (0.00-0.50) K/uL Baso # (Auto) 0.06 (0.00-0.20) K/uL Comprehensive Metabolic Panel 05/18/24 Range/Units 05:34 Sodium 142 (136-145) mmol/L Potassium 4.3 (3.5-5.1) mmol/L Chloride 101 (98-107) mmol/L Carbon Dioxide 34 H (21-32) mmol/L BUN 41 H (6-23) mg/dl Creatinine 2.15 H (0.6-1.2) mg/dl Glucose 97 (70-99(Fasting)) mg/dl Calcium 9.5 (8.6-10.3) mg/dl Albumin 3.4 (3.4-5.0) gm/dl Intake and Output 05/17/24 05/18/24 05/18/24 22:59 06:59 14:59 Intake Total 610.000 / 1960.000 300 / 1960.000 Output Total 1000 / 3800 1000 / 3800 Balance -390.000 / -1840.000 -700 / -1840.000 Intake: IV 110.000 / 110.000 Iron Sucrose 200 mg In Sodium 110.000 / 110.000 Chloride 0.9% 100 ml @ 220 mls/ hr IV TODAY ONE Rx#:[id number] Oral 500 / 1850 300 / 1850 Output: Urine 1000 / 3800 1000 / 3800 Other: Weight 135.5 kg Weight Measurement Method Built in [facility] Diagnostic Findings Resting echocardiogram 05/15/2024: Left ventricular systolic function is normal No regional wall motion abnormalities noted Mild concentric LVH LVEF 60-65% Mild AI Moderate TR No significant change when compared with prior study from 07/26/2023. (2) Pulmonary edema Chronicity: acute Qualified Code(s): J81.0 - Acute pulmonary edema (3) Diastolic CHF Heart failure chronicity: chronic Qualified Code(s): I50.32 - Chronic diastolic (congestive) heart failure
--- NOTE | 2024-05-18 10:32 | Nephrology Progress Note ---
Date of Service May 18, 2024 Assessment & Plan (1) CKD (chronic kidney disease) stage 4, GFR 15-29 ml/min: (2) Hypoxia: (3) Anemia: (4) Hypertension: (5) Paroxysmal atrial fibrillation: (6) Proteinuria: Plan 78-year-old female with stage IIIb/IV CKD baseline creatinine 1.8-1.9 with nephrotic range proteinuria most likely secondary to diabetic nephropathy. Paraproteinemia workup was unremarkable. Admitted with progressive shortness of breath and chest pressure for several weeks. Troponin, 2D echo unremarkable. Blood pressure has been running high. Kidney function close to her baseline. Volume status slightly improved after started on IV diuretics and overall feel respiratory status also improved somewhat. Slight changes in kidney function noted today, most likely hemodynamically mediated with improvement in blood pressure, starting back on ARB and continued net negative. Volume status improved significantly, last 24 hours negative almost 2 L. --decrease Lasix back to 40 mg daily, continue to follow low-salt diet. --Continue losartan 100 mg daily --lab in am Admission and Anticipated Discharge Date Admission Date: May 15, 2024 Karlie Dan was seen and evaluated this morning. She reports overall feeling well, responding to the diuretics and net negative almost 2 L but continued to feel better on oxygen. Kidney function staying relatively stable, electrolyte acceptable. Blood pressure improved after losartan was resumed yesterday. Volume status improved significantly and weight is down almost 12 pounds since admission. Review of Systems Review of Systems: Detailed review of system was done and pertinent positives and negatives are mentioned above. Physical Exam Constitutional: WD/WN, vitals as above + obese; no acute distress Eyes: + anicteric sclerae Neck: normal visual inspection Respiratory: no respiratory distress Auscultation: lungs clear to auscultation bilaterally Cardiovascular: Rate/Rhythm: + irregularly irregular Heart Sounds: normal S1 and normal S2 Extremities: + edema (Trace b/l LE edema) Musculoskeletal: Extremities: extremities normal to inspection Skin: no rashes, warm and dry Neurologic: no focal motor deficits Psychiatric: Orientation: alert and oriented x 3 Affect: euthymic affect Results & Data Vital Signs (Past 12 Hours) Vital Signs Temp Pulse Pulse Pulse Pulse Pulse Resp 05/18/24 09:58 98 H 98 H 66 05/18/24 07:17 36.7 C 63 18 05/18/24 07:11 64 05/18/24 07:00 05/18/24 04:01 36.7 C 58 L 20 05/17/24 23:09 36.5 C 63 20 Resp Resp Resp BP Pulse Ox Pulse Ox Pulse Ox 05/18/24 09:58 22 22 16 90 87 L 05/18/24 07:17 133/64 95 05/18/24 07:11 05/18/24 07:00 05/18/24 04:01 129/69 92 05/17/24 23:09 123/80 96 Pulse Ox O2 Del Method O2 Flow Rate O2 Flow Rate 05/18/24 09:58 90 2 05/18/24 07:17 Nasal Cannula 3 05/18/24 07:11 05/18/24 07:00 Nasal Cannula 3 05/18/24 04:01 CPAP 2 05/17/24 23:09 CPAP 2 PG Care Time/CCT Total # of Minutes Spent Total Time Spent with Patient: Total time spent is greater than 50% in coordination of care (as documented) at patient's floor/unit and/or counseling patient: Coding Level of Care Code 83116 SUB INP/OBS CARE 2/35MIN Diagnoses CKD (chronic kidney disease) stage 4, GFR 15-29 ml/min N18.4 Hypoxia R09.02 Anemia D64.9 Primary hypertension I10 Hypertension type: primary hypertension Paroxysmal atrial fibrillation I48.0 Proteinuria R80.9 (4) Hypertension Hypertension type: primary hypertension Qualified Code(s): I10 - Essential (primary) hypertension
--- NOTE | 2024-05-18 13:50 | Hospitalist Progress Note ---
Date of Service May 18, 2024 Assessment & Plan (1) Diastolic CHF: Plan: Feeling much improved after being given IV lasix Cr increased to 2.15 today Appreciate nephrology consultation Lasix decreased to 40mg PO daily Strict I&O monitoring and Daily weights, low-sodium diet and fluid restriction Ok to resume home losartan given proteinuria and improvement in renal function (2) Hypoxia: Plan: Continues to be requiringm 2 L nasal cannula and is not on oxygen at baseline Secondary to volume overload from renal failure and diastolic heart failure VBG with fairly chronic appearing respiratory acidosis at 7.31/63 Viral respiratory PCR for [id number] is negative Wean off oxygen as able to with diuresis- Two-step walk test completed, home 02 arranged for home d/c in am 05/19 (3) CKD (chronic kidney disease) stage 4, GFR 15-29 ml/min: Plan: Baseline creatinine around 1.7-1.8, creatinine then up to 2.15 with IV diuretics. Lasix decreased to 40mg PO daily With 3+ protein on urinalysis, nephrotic range proteinuria from diabetic nephropathy-recent Protein/Cr ratio 6.7 indicating nephrotic range continue cinacalcet Consult nephrology appreciated-needs outpatient f/u with Nephro Follow-up BMP (4) Iron deficiency: Plan: Hgb only mildly low-normal but MCV low nad Fe studies show significant iron deficiency with transferrin sat 10%, ferritin only 16 She has not had a colonoscopy in over 10 years and cannot recall last EGD (5) Controlled type 2 diabetes mellitus, with long-term current use of insulin: Plan: Most recent A1C 6.1% On 5 units Lantus HS at home, continue Continue T2DM diet Polyneuropathy - continue chlorzoxazone and Lyrica. Continue Cymbalta 90 mg daily, Tylenol COnsider adding Elavil low dose for neuropathy at bedtime (6) Paroxysmal atrial fibrillation: Plan: Remains in rate controlled atrial fibrillation here recent TSH WNL given age Anticoagulated with Eliquis, rate controlled with metoprolol Continue to monitor on Telemetry (7) Chest pressure: Plan: Troponin negative, EKG showing A fib, no ischemic changes Plan Chronic stable diagnoses: HTN - continue amlodipine, metoprolol, and lasix. Resuming home losartan Anxiety/depression - continue duloxetine, hydralazine, melatonin, trazodone --> started sertraline 25mg po hs for depression and insomnia hypothyroidism TSH recently elevated at 8 and had an extra 87.5mcg of LT4 added on Sundays, continue same dose levothyroxine and recheck LFTs in 4-6 weeks chronic constipation continue MiraLAX daily GERD - continue PPI Thiamine Deficiency continue supplement TIERRA - continue CPAP HS macular degeneration - received injection Wednesday; next injection due in June Insomnia-increase melatonin to 6mg hs and add Zoloft for mood and sleep. She has been taking Hunter prn sleep at home-may be helpful due to serotonin effect? VTE ppx: Teds, SCDs, Eliquis Code status: Full code Dispo: Med surg/ tele , possible discharge to home tomorrow 05/19 if improving. 2 step walk test for home O2 qualification completed. Admission and Anticipated Discharge Date Admission Date: May 15, 2024 Subjective No events overnight, pt resting comfortably in chair. She states her breathing has significancy improved. Review of Systems Review of Systems: CONST: Negative for fever, body aches and chills. HENT: Negative for neck pain/stiffness, headache, congestion, sore throat, swelling. EYES: Negative for discharge/pain or vision changes. RESP: Negative for cough/hemoptysis and shortness of breath. CV: Negative chest pain, difficulty breathing, palpitations. ABD: Negative pain, nausea, vomiting. : Negative increase frequency, dysuria, blood in urine or stool. MUSC: Negative for muscle aches, edema. SKIN: Negative rash, lesions/sores. NEURO: Negative headache, dizziness, weakness. Physical Exam Physical Exam: GENERAL APPEARANCE NAD, activity normal for age, well developed/ well nourished, no cyanosis, pallor, or diaphoresis. EYES lids/conjunctiva normal. EARS/NOSE/THROAT Mucous membranes moist, nares normal, lips/teeth normal uvula midline without oral pharyngeal erythema, exudate or swelling TMs normal bilaterally. No lymphangitis/lymphedema. HEAD/NECK normocephalic atraumatic, no facial trauma, neck is supple. RESPIRATORY respiratory effort normal, speaks in full sentences, no tripod position, no accessory muscle use. Lungs clear to auscultation without rhonchi, wheezes, rales CARDIAC Regular rate and rhythm, no edema. ABDOMINAL Soft, ND/NT. No evidence of fluid wave. No pulsatile masses on exam, rebound tenderness, Esquivel sign or pain over Mcburney's point. MUSCLES/EXTREMITIES No abnormal range of motion, no swelling. SKIN Warm, pink and dry. No rashes, dermatoses, petechiae or lesions. NEUROLOGICAL Speech is clear and appropriate. Normal level of consciousness. Gait and coordination are normal. 5/5 strength in all extremities. PSYCH Normal mood and affect. Judgement/competence is appropriate Results & Data Results & Data Vital Signs (Past 12 Hours) Vital Signs Temp Pulse Pulse Pulse Pulse Pulse Resp 05/18/24 11:18 36.4 C L 61 14 05/18/24 09:58 98 H 98 H 66 05/18/24 07:17 36.7 C 63 18 05/18/24 07:11 64 05/18/24 07:00 05/18/24 04:01 36.7 C 58 L 20 Resp Resp Resp BP Pulse Ox Pulse Ox Pulse Ox 05/18/24 11:18 127/73 96 05/18/24 09:58 22 22 16 90 87 L 05/18/24 07:17 133/64 95 05/18/24 07:11 05/18/24 07:00 05/18/24 04:01 129/69 92 Pulse Ox O2 Del Method O2 Flow Rate O2 Flow Rate 05/18/24 11:18 Nasal Cannula 05/18/24 09:58 90 2 05/18/24 07:17 Nasal Cannula 3 05/18/24 07:11 05/18/24 07:00 Nasal Cannula 3 05/18/24 04:01 CPAP 2 PG Care Time/CCT Total # of Minutes Spent Total Time Spent with Patient: Total time spent is greater than 50% in coordination of care (as documented) at patient's floor/unit and/or counseling patient: Coding Level of Care Code 30990 SUB INP/OBS CARE 2/35MIN Diagnoses Chronic diastolic congestive heart failure I50.32 Heart failure chronicity: chronic Hypoxia R09.02 CKD (chronic kidney disease) stage 4, GFR 15-29 ml/min N18.4 Iron deficiency E61.1 Controlled type 2 diabetes mellitus, with long-term current use of insulin E11.9; Z79.4 Paroxysmal atrial fibrillation I48.0 Chest pressure R07.89 (1) Diastolic CHF Heart failure chronicity: chronic Qualified Code(s): I50.32 - Chronic d iastolic (congestive) heart failure
[2024-05-19 07:11] LABS: Albumin Level 3.4 gm/dl (3.4-5.0); Calcium 9.6 mg/dl (8.6-10.3); Creatinine Clr Calc Pharmacy 30.4 ml/min; Phosphorus 3.8 mg/dl (2.5-4.9)
[2024-05-19 08:08] VITALS: TEMP 97.9
[2024-05-19] MEDS: FUROSEMIDE 40 MG TAB PO SCH (08:38)
--- NOTE | 2024-05-19 10:13 | Discharge Summary ---
Discharge Summary Date of Service May 19, 2024 Principal Dx & Hospital Course #1 = Principal Diagnosis (1) Diastolic CHF: Feeling much improved after being given IV lasix Cr increased to 2.16 today Appreciate nephrology consultation Lasix decreased to 40mg PO daily Strict I&O monitoring and Daily weights, low-sodium diet and fluid restriction Ok to resume home losartan given proteinuria and improvement in renal function (2) Hypoxia: Continues to be requiringm 2 L nasal cannula and is not on oxygen at baseline Secondary to volume overload from renal failure and diastolic heart failure VBG with fairly chronic appearing respiratory acidosis at 7.31/63 Viral respiratory PCR for [id number] is negative Wean off oxygen as able to with diuresis- Two-step walk test completed, home 02 arranged for home d/c in am 05/19 (3) CKD (chronic kidney disease) stage 4, GFR 15-29 ml/min: Baseline creatinine around 1.7-1.8, creatinine then up to 2.15 with IV diuretics. Lasix decreased to 40mg PO daily With 3+ protein on urinalysis, nephrotic range proteinuria from diabetic nephropathy-recent Protein/Cr ratio 6.7 indicating nephrotic range continue cinacalcet Consult nephrology appreciated-needs outpatient f/u with Nephro Follow-up BMP (4) Iron deficiency: Hgb only mildly low-normal but MCV low nad Fe studies show significant iron deficiency with transferrin sat 10%, ferritin only 16 She has not had a colonoscopy in over 10 years and cannot recall last EGD (5) Controlled type 2 diabetes mellitus, with long-term current use of insulin: Most recent A1C 6.1% On 5 units Lantus HS at home, continue Continue T2DM diet Polyneuropathy - continue chlorzoxazone and Lyrica. Continue Cymbalta 90 mg daily, Tylenol COnsider adding Elavil low dose for neuropathy at bedtime (6) Paroxysmal atrial fibrillation: Remains in rate controlled atrial fibrillation here recent TSH WNL given age Anticoagulated with Eliquis, rate controlled with metoprolol Continue to monitor on Telemetry (7) Chest pressure: Troponin negative, EKG showing A fib, no ischemic changes Plan Chronic stable diagnoses: HTN - continue amlodipine, metoprolol, and lasix. Resuming home losartan Anxiety/depression - continue duloxetine, hydralazine, melatonin, trazodone --> started sertraline 25mg po hs for depression and insomnia hypothyroidism TSH recently elevated at 8 and had an extra 87.5mcg of LT4 added on Sundays, continue same dose levothyroxine and recheck LFTs in 4-6 weeks chronic constipation continue MiraLAX daily GERD - continue PPI Thiamine Deficiency continue supplement TIERRA - continue CPAP HS macular degeneration - received injection Wednesday; next injection due in June Insomnia-increase melatonin to 6mg hs and add Zoloft for mood and sleep. She has been taking Hunter prn sleep at home-may be helpful due to serotonin effect? VTE ppx: Teds, SCDs, Eliquis Code status: Full code Dispo: Med surg/ tele , possible discharge to home tomorrow 05/19 if improving. 2 step walk test for home O2 qualification completed. Admission HPI Per Admitting Provider Patient and her seen at bedside. Patient is a 75-year-old female with a past medical history of CKD stage IV, type 2 diabetes with polyneuropathy, paroxysmal A-fib, obesity, hyperlipidemia, hypertension, GERD, hypothyroidism, anemia, and macular degeneration. She presents today due to worsening dyspnea over the past 5 weeks. It initially started with minimal exertion, now occurs at rest. She was to have a dobutamine stress test today due to ongoing chest pressure, although was unable to complete due to shortness of breath. She did have the resting echo completed. The chest pressure is midsternal and she has not had an episode since this morning. She denies orthopnea, although wears CPAP at bedtime. She does have a chronic cough with mucus production. Her was at bedside who stated that he cooks dinner for them every night, they do not eat high sodium foods, although she does get salt on all of her meals. She drinks water and hot tea often. She states she has had some mild lower extremity edema. She takes Lasix 20 mg daily, given 60 mg IV in the ER. she has been taking her pulse ox at home; drops to 86 at times but quickly trends up to 91 or 92. Patient endorse chronic headaches, chronic constipation in which she takes Miralax daily, and numbness (diabetic neuropathy). Patient denies dizziness, lightheadedness, vision changes, abdominal pain, nausea, vomiting, diarrhea. She has a history of diabetes in which she only uses Lantus insulin 5 units at night. She denies history of cancer, VTE, [place], or stroke. She uses CPAP at bedtime. She took all of her home medications this morning, other than MiraLAX. She wishes to be full code at this time. Completed patient education of current condition and management was provided. All questions that the patient asked were answered, and patient demonstrated complete understanding. The patient was discussed with Dr. Lynne at the time of the admission/consult. Discharge Exam GENERAL APPEARANCE NAD, activity normal for age, well developed/ well nourished, no cyanosis, pallor, or diaphoresis. EYES lids/conjunctiva normal. EARS/NOSE/THROAT Mucous membranes moist, nares normal, lips/teeth normal uvula midline without oral pharyngeal erythema, exuda te or swelling TMs normal bilaterally. No lymphangitis/lymphedema. HEAD/NECK normocephalic atraumatic, no facial trauma, neck is supple. RESPIRATORY respiratory effort normal, speaks in full sentences, no tripod position, no accessory muscle use. Lungs clear to auscultation without rhonchi, wheezes, rales CARDIAC Regular rate and rhythm, no edema. ABDOMINAL Soft, ND/NT. No evidence of fluid wave. No pulsatile masses on exam, rebound tenderness, Esquivel sign or pain over Mcburney's point. MUSCLES/EXTREMITIES No abnormal range of motion, no swelling. SKIN Warm, pink and dry. No rashes, dermatoses, petechiae or lesions. NEUROLOGICAL Speech is clear and appropriate. Normal level of consciousness. Gait and coordination are normal. 5/5 strength in all extremities. PSYCH Normal mood and affect. Judgement/competence is appropriate Discharge Plan Discharge Items Patient Disposition: Home - Self-Care Reason For Visit: DYSPNEA Discharge Diagnosis: CHF Activity: Resume your previous activity Non-emergency contact: Primary Care Provider Call non-emergency contact if: you have any medication questions and your symptoms worsen Follow-up/Referrals: Dirk Cooper DO [Primary Care Provider] - 05/29/24 3:00 pm Diet: Low Sodium (2gm) Addtl Attending Provider Instructions: Call 911 and go to the Emergency Room if: * You have tightness or pain in your chest that does not go away with rest or Nitroglycerin * You are very short of breath even with rest Call your doctor if any of the following symptoms or problems start or get worse: * Shortness of breath or difficulty breathing * Wake up at night short of breath * Chest pain * Cough * Swelling of your hands, fee, or legs * More fatigued or tired with your normal activity * Palpitations - sudden fast heart beats WEIGHT * Weigh yourself every morning after using the bathroom. * Use the same scale. * Wear the same amount of clothing. * Write your weight down on your chart. * Call your doctor if you gain more than 2-3 pounds in 1-2 days. MEDICATIONS * Use this discharge instruction sheet for instructions. * Take your medications at the time your doctor ordered. * Do not skip a dose of your medicines. * If you miss a dose of medicine, take as soon as possible, but DO NOT DOUBLE A DOSE. * Read your medicine information when you get home. * Know all of the side effects of your medicine. * Call your doctor's office if you have any side effects. * Be sure all of your doctors know what medicine and herbs you take (including cold, flu, and herbal medicine). * Pain Medicine: If you do not get relief from your pain, please call your doctor for help. Take the following with you to your follow-up doctor appointments: * Weight Chart * Medication List * List of questions Do not drink excessive alcohol, beer or wine. Pending Studies at Discharge: No Stand-Alone Forms: [facility], Smoking Cessation Medications and DC Order Prescriptions: Continued amlodipine 5 mg tablet 5 mg PO PM Qty: 90 3RF albuterol sulfate 90 mcg/actuation HFA aerosol inhaler 1 - 2 puff inhalation Q4H PRN (Reason: shortness of breath or wheezing) Qty: 8.5 1RF amlodipine 2.5 mg tablet 2.5 mg PO QAM Qty: 90 3RF fluticasone propionate [Flovent HFA] 110 mcg/actuation HFA aerosol inhaler 1 puff inhalation BID PRN (Reason: Wheezing) Qty: 12 0RF (DME) pen needle, diabetic [BD Ultra-Fine Shanel Pen Needle] 32 gauge x 5/32" needle See Rx Instructions .ROUTE .MEDSUPPLY Qty: 100 3RF Rx Instructions: Use one daily with insulin melatonin 3 mg tablet 5 mg PO HS chlorzoxazone 750 mg tablet 750 mg PO TID Qty: 270 1RF gabapentin 100 mg capsule 100 mg PO QID Qty: 120 1RF ondansetron 4 mg tablet,disintegrating 4 mg PO Q8H PRN (Reason: nausea and vomiting) Qty: 30 0RF furosemide 20 mg tablet 20 mg PO QAM Hold Instructions: Resume on 03/18/23. hold with daily weights and BMP Wednesday, can resume if weights climbing and/or creatinine improves trazodone 50 mg tablet 100 mg PO HS PreserVision AREDS 4,296 mcg-226 mg-90 mg capsule 1 cap PO .QAM AND PM insulin glargine [Lantus Solostar U-100 Insulin] 100 unit/mL (3 mL) insulin pen 5 unit subcut HS polyethylene glycol 3350 [Miralax] 17 gram powder in packet 17 g PO QAM (DME) OneTouch Verio test strips Strip See Rx Instructions .Route Rx Instructions: Test blood sugar daily levothyroxine 175 mcg tablet 175 mcg PO UD Rx Instructions: Take in AM on empty stomach with water 30 min prior to any oral intake. only 6 days a week and half a tab (usually on weekends) per hydralazine 50 mg tablet 50 mg PO TID Qty: 270 3RF thiamine HCl (vitamin B1) [Vitamin B-1] 50 mg Tablet 50 mg PO QAM Qty: 30 0RF metoprolol tartrate 25 mg tablet 25 mg PO .NOON AND BEDTIME triamcinolone acetonide 0.1 % ointment 1 applic topical BID PRN (Reason: .flare ups) (DME) CPAP Machine Rx Instructions: CPAP 16 cmH2O, [facility] medical; rabeprazole [AcipHex] 20 mg tablet,delayed release (DR/EC) 20 mg PO QAM acetaminophen 500 mg tablet 1,000 mg PO TID azelastine 137 mcg (0.1 %) spray,non-aerosol See Rx Instructions intranasal BID PRN (Reason: Other) Rx Instructions: 1 spray each nostril twice a day losartan 100 mg tablet 100 mg PO .AFTERNOON Rx Instructions: Takes mid-afternoon fluticasone propionate 50 mcg/actuation spray,suspension 2 spray intranasal BID PRN (Reason: Other) Rx Instructions: administer 2 sprays into each nostril twice daily cholecalciferol (vitamin D3) 25 mcg (1,000 unit) capsule 25 mcg PO .AFTERNOON cinacalcet [Sensipar] 30 mg tablet 30 mg PO .AFTERNOON Rx Instructions: Takes mid-afternoon duloxetine 30 mg capsule,delayed release(DR/EC) 30 mg PO .AFTERNOON duloxetine 60 mg capsule,delayed release(DR/EC) 60 mg PO QAM pregabalin [Lyrica] 75 mg capsule 75 mg PO UD Rx Instructions: 75 mg po qam and afternoon. then 150 mg at bedtime fenofibrate nanocrystallized 145 mg tablet 145 mg PO .NOON Rx Instructions: Takes 1200 Zyrtec 10 mg capsule 10 mg PO DAILY PRN (Reason: allergies ) Eliquis 5 mg tablet 5 mg PO .NOON AND BEDTIME Discharge Orders: Discharge Order (Routine); Ordered 05/19/24 Ordered By: Teodoro Thomas Admission Data Admit Date/Time: 05/15/24 12:40 Attending Provider: Teodoro Thomas Admit Provider: Shaun Lynne Primary Care Provider: Dirk Cooper Other Providers: Shaun Lynne; Addie Bergeron; Richard Robles Hospital Stay Data Consultations 05/15/24 12:22 ED Decision to Admit Stat 05/16/24 10:06 Consult Nephrology Routine 05/18/24 08:36 Consult Cardiology Routine Pending Results Patient Have Any Pending Studies at Discharge: No Discharge Instructions Given to Patient (Per Discharging Provider) Call 911 and go to the Emergency Room if: * You have tightness or pain in your chest that does not go away with rest or Nitroglycerin * You are very short of breath even with rest Call your doctor if any of the following symptoms or problems start or get worse: * Shortness of breath or difficulty breathing * Wake up at night short of breath * Chest pain * Cough * Swelling of your hands, fee, or legs * More fatigued or tired with your normal activity * Palpitations - sudden fast heart beats WEIGHT * Weigh yourself every morning after using the bathroom. * Use the same scale. * Wear the same amount of clothing. * Write your weight down on your chart. * Call your doctor if you gain more than 2-3 pounds in 1-2 days. MEDICATIONS * Use this discharge instruction sheet for instructions. * Take your medications at the time your doctor ordered. * Do not skip a dose of your medicines. * If you miss a dose of medicine, take as soon as possible, but DO NOT DOUBLE A DOSE. * Read your medicine information when you get home. * Know all of the side effects of your medicine. * Call your doctor's office if you have any side effects. * Be sure all of your doctors know what medicine and herbs you take (including cold, flu, and herbal medicine). * Pain Medicine: If you do not get relief from your pain, please call your doctor for help. Take the following with you to your follow-up doctor appointments: * Weight Chart * Medication List * List of questions Do not drink excessive alcohol, beer or wine. Total Time Total Time Spent Total Time Spent (In Minutes): 50 Coding Level of Care Code 14756 INP/OBS DISCH >30 MIN Diagnoses Chronic diastolic congestive heart failure I50.32 Heart failure chronicity: chronic Hypoxia R09.02 CKD (chronic kidney disease) stage 4, GFR 15-29 ml/min N18.4 Iron deficiency E61.1 Controlled type 2 diabetes mellitus, with long-term current use of insulin E11.9; Z79.4 Paroxysmal atrial fibrillation I48.0 Chest pressure R07.89
--- NOTE | 2024-05-19 10:45 | Cardiology Progress Note ---
Date of Service May 19, 2024 Assessment & Plan (1) Chest pressure: (2) Pulmonary edema: (3) Diastolic CHF: (4) CKD (chronic kidney disease) stage 4, GFR 15-29 ml/min: (5) Persistent atrial fibrillation: Plan Assessment: 78 year old female admitted for acute on chronic HF exacerbation after presenting for OP testing. Cardiology requested for assessment/recommendations. Plan: -Dobutamine stress test was aborted due to need for ER evaluation for evidence of acute HF exacerbation. -Since time of admission, patient has been successfully diuresed. Review of records shows a 8Kg weight deficit. She is euvolemic on exam. -In agreement with Nephrology recommendations to continue forward with Furosemide 40mg PO Daily at time of discharge. -Continue Metoprolol and Losartan as part of HF regimen. -Encourage daily AM dry weights and keep a record. Low Sodium diet less than 2000mg daily. -patient should have OP labs in one week to monitor renal function and electrolytes, or as per management of nephrology. -Patient is ok for discharge form a cardiac perspective with ok with nephrology and primary team. -She is currently scheduled for OP cardiology follow on on 06/13/2024 and should keep that appointment for close follow up. 05/19/2024: -Remains stable from a cardiac perspective. -Cr remains 2.15 today. Nephrology had her Furosemide to 40mg Daily and at this time remains the plan for time of discharge. -Continue Metoprolol and Losartan as part of HF regimen. -Encourage daily AM dry weights and keep a record. Low Sodium diet less than 2000mg daily. -patient should have OP labs in one week to monitor renal function and electrolytes, or as per management of nephrology. -Patient is ok for discharge form a cardiac perspective with ok with nephrology and primary team. -She is currently scheduled for OP cardiology follow on on 06/13/2024 and should keep that appointment for close follow up. Case has been discussed with Dr. York. Further recommendations regarding plan of care as per his assessment. I spent a total of 30 minutes on the date of service in preparation, delivery, documentation of the care provided to the patient excluding any time spent in the performance of separately billed services. KORTNEY [facility] Admission and Anticipated Discharge Date Admission Date: May 15, 2024 Supervising Physician Co-Signing Physician Notes I have personally performed a history and physical examination on the patient. I have reviewed the advance practitioner's documentation, and I agree with, and take responsibility for the plan of care. 78-year-old female with chronic kidney disease, chronic heart failure with preserved ejection fraction, and hypertension presented for outpatient dobutamine stress echo 05/15/2024. Stress testing aborted due to evidence of acute decompensated heart failure/volume overload patient patient subsequently admitted for IV diuresis. Weight is down to 8 kg. Appears euvolemic with improved edema. IV furosemide transition to oral medication. Mildly elevated creatinine noted yesterday and today although near baseline. Agree with continuing daily oral furosemide. Nephrology input appreciated. Cardiology will sign off. Please call with additional concerns/questions. I spent a total of 30 minutes on the date of service in preparation, delivery, and documentation of the care provided to this patient, excluding any time spent in the performance of separately billed services. Richard Robles DO, [facility] Subjective 05/19/2024: Patient seen and examined in follow up today. Feeling well overall. Continues to deny any chest pain, pressure or palpitations. Denies any shortness of breath. Does endorse some mild leg swelling, but feels this is near her baseline. She was kept overnight for recheck of renal function today, and is awaiting to be seen by nephrology. Labs, vitals, diagnostics, telemetry and documentation reviewed. Telemetry reviewed showing A-fib rates 50-70's. No acute events overnight. Review of Systems Review of Systems: All systems reviewed & are unremarkable except as noted in HPI & below Physical Exam Constitutional: well developed and well nourished; no acute distress and not ill appearing Neck: normal visual inspection and trachea midline Respiratory: normal respiratory effort, lungs clear to auscultation Auscultation: no crackles, no rales, no rhonchi and no wheezes Cardiovascular: Rate/Rhythm: + irregularly irregular Heart Sounds: normal S1, normal S2 and + murmur (+1/6) Vessels: no JVD Extremities: + edema (trace BLE) Skin: no rashes, warm and dry Psychiatric: A+Ox3, euthymic affect Results & Data Vital Signs (Past 12 Hours) Vital Signs Temp Pulse Pulse Resp BP Pulse Ox O2 Del Method 05/19/24 08:07 36.6 C 64 20 153/90 H 95 Nasal Cannula 05/19/24 07:00 54 L 05/19/24 03:07 36.9 C 59 L 16 129/72 94 CPAP 05/18/24 22:40 36.7 C 71 16 128/83 92 CPAP O2 Flow Rate 05/19/24 08:07 3 05/19/24 07:00 05/19/24 03:07 2 05/18/24 22:40 2 Laboratory Results Comprehensive Metabolic Panel 05/19/24 Range/Units 06:23 Sodium 143 (136-145) mmol/L Potassium 4.0 (3.5-5.1) mmol/L Chloride 104 (98-107) mmol/L Carbon Dioxide 33 H (21-32) mmol/L BUN 41 H (6-23) mg/dl Creatinine 2.16 H (0.6-1.2) mg/dl Glucose 99 (70-99(Fasting)) mg/dl Calcium 9.6 (8.6-10.3) mg/dl Albumin 3.4 (3.4-5.0) gm/dl Intake and Output 05/18/24 05/19/24 05/19/24 22:59 06:59 14:59 Intake Total 440 / 560 Output Total 1700 / 4950 2000 / 4950 Balance -1260 / -4390 -1999 / -4390 Intake: Oral 440 / 560 Output: Urine 1700 / 4950 1999 / 4950 Other: Weight 135.4 kg Weight Measurement Method Built in [facility] (2) Pulmonary edema Chronicity: acute Qualified Code(s): J81.0 - Acute pulmonary edema (3) Diastolic CHF Heart failure chronicity: chronic Qualified Code(s): I50.32 - Chronic diastolic (congestive) heart failure
--- NOTE | 2024-05-19 11:27 | Nephrology Progress Note ---
Date of Service May 19, 2024 Assessment & Plan (1) CKD (chronic kidney disease) stage 4, GFR 15-29 ml/min: (2) Hypoxia: (3) Anemia: (4) Hypertension: (5) Paroxysmal atrial fibrillation: (6) Proteinuria: (7) NATASHA (acute kidney injury): Plan 78-year-old female with stage IIIb/IV CKD baseline creatinine 1.8-1.9 with nephrotic range proteinuria most likely secondary to diabetic nephropathy. Paraproteinemia workup was unremarkable. Admitted with progressive shortness of breath and chest pressure for several weeks. Troponin, 2D echo unremarkable. Blood pressure has been running high. Kidney function close to her baseline. Volume status slightly improved after started on IV diuretics and overall feel respiratory status also improved somewhat. Kidney function staying relatively stable, slight changes in kidney function most likely hemodynamically mediated with improvement in blood pressure, starting back on ARB and continued net negative. Volume status improved significantly, last 24 hours negative almost 2 L. --continue Lasix 40 mg daily, continue to follow low-salt diet. Advised to keep well hydrated monitor weight at home daily. --Continue losartan 100 mg daily --lab in early next week. --OK to discharge with out pt lab next week, will arrange for f/u with Dr. Vora at CKD clinic in 2/3 weeks. Admission and Anticipated Discharge Date Admission Date: May 15, 2024 Karlie Dan was seen and evaluated this morning. She reports overall feeling better, responding to the diuretics and net negative almost >3 L and has been using [place] oxygen. Kidney function staying relatively stable, electrolyte acceptable. Blood pressure improved after losartan was resumed yesterday. Volume status improved significantly. Review of Systems Review of Systems: Detailed review of system was done and pertinent positives and negatives are mentioned above. Physical Exam Constitutional: WD/WN, vitals as above + obese; no acute distress Eyes: + anicteric sclerae Neck: normal visual inspection Respiratory: no respiratory distress Auscultation: lungs clear to auscultation bilaterally Cardiovascular: Rate/Rhythm: + irregularly irregular Heart Sounds: normal S1 and normal S2 Extremities: + edema (Trace b/l LE edema) Musculoskeletal: Extremities: extremities normal to inspection Skin: no rashes, warm and dry Neurologic: no focal motor deficits Psychiatric: Orientation: alert and oriented x 3 Affect: euthymic affect Results & Data Vital Signs (Past 12 Hours) Vital Signs Temp Pulse Pulse Resp BP Pulse Ox O2 Del Method 05/19/24 08:07 36.6 C 64 20 153/90 H 95 Nasal Cannula 05/19/24 07:00 Nasal Cannula 05/19/24 07:00 54 L 05/19/24 03:07 36.9 C 59 L 16 129/72 94 CPAP O2 Flow Rate 05/19/24 08:07 3 05/19/24 07:00 3 05/19/24 07:00 05/19/24 03:07 2 PG Care Time/CCT Total # of Minutes Spent Total Time Spent with Patient: Total time spent is greater than 50% in coordination of care (as documented) at patient's floor/unit and/or counseling patient: Coding Level of Care Code 34483 SUB INP/OBS CARE 2/35MIN Diagnoses CKD (chronic kidney disease) stage 4, GFR 15-29 ml/min N18.4 Hypoxia R09.02 Anemia D64.9 Primary hypertension I10 Hypertension type: primary hypertension Paroxysmal atrial fibrillation I48.0 Proteinuria R80.9 NATASHA (acute kidney injury) N17.9 (4) Hypertension Hypertension type: primary hypertension Qualified Code(s): I10 - Essential (primary) hypertension
[2024-05-19 11:54] VITALS: BP 136/85; PULSE 60; RESP 18; O2SAT 97
[2024-05-20] MEDS ORDERED: LEVOTHYROXINE SODIUM 175 MCG TABLET PO SCH (06:30)
== END 2024-05-19 16:12 | disposition home or self-care (01) | DRG 291 ==
LOC: ED 10:04 → 2N 12:40 → SUATTDRO 12:40 → 2N 14:31

== ENCOUNTER 2024-06-30 14:44 | Inpatient (IN) ==
[2024-06-30 15:25] LABS: HCO3 VBG 35 mmol/L; Oxygen Saturation VBG < 60.0 %; PCO2 VBG 63 mmHg (38-50); PO2 VBG 25 mmHg; pH VBG 7.35 (7.36-7.41)
[2024-06-30 15:34] LABS: Basophils # (auto) 0.04 K/uL (0.00-0.20); Basophils % (auto) 0.5 %; Eosinophils # (auto) 0.14 K/uL (0.00-0.50); Eosinophils % (auto) 1.8 %; Hemoglobin 12.8 g/dl (12.0-16.0); Immature Granulocytes # (auto) 0.06 K/uL (0.01-0.20); Immature Granulocytes % (auto) 0.8 %; Lymphocytes % (auto) 9.1 %; Mean Corpuscular Hemoglobin 28.3 pg (25.0-34.0); Mean Corpuscular Volume 88.5 fL (80.0-100.0); Monocytes % (auto) 16.8 %; Neutrophils # (auto) 5.49 K/uL (1.40-6.50); Platelet Count 215 K/uL (130-400); RDW Coefficient of Variation 14.6 % (11.5-14.5); RDW Standard Deviation 47.1 fL (36.4-46.3); Red Blood Count 4.52 M/uL (4.20-5.40); White Blood Count 7.73 K/ul (4.8-10.8)
--- NOTE | 2024-06-30 15:35 | Emergency Department Note ---
Impression & Plan Acute hypoxic respiratory failure, Acute exacerbation of CHF (congestive heart failure), Elevated brain natriuretic peptide (BNP) level, COVID-19 ED Provider Note HISTORY OF PRESENT ILLNESS: Patient is a 78-year-old female presenting with shortness of breath. Patient reports that yesterday she had a sore throat and feeling generally unwell. She reports she woke up this morning was feeling very short of breath with minimal amounts of exertion. She went to her primary care provider's office and tested positive for COVID-19. She states that her pulse ox at home was below 90. She wears a CPAP at nighttime and has as needed oxygen at home. However, she has not had to use her as needed oxygen for over 6 weeks. She states she feels very short of breath with just sitting down. Denies any DVT or PE history. She has a history of A-fib and is on Eliquis. She denies any fevers. Denies any recent sick contact exposures or recent travel. Denies any history of stents in her heart. reports that the patient was given 80 mg of oral Lasix today from her baseline 40 mg, as she had gained 2.5 pounds on today's weight at home. ROS: as above PHYSICAL EXAM: Constitutional: Patient appears in no acute distress. HENT: Head: Normocephalic and atraumatic. Eyes: EOMI, PERRL Mouth/Throat: Mucous membranes moist. Neck: Trachea midline. Neck supple. Cardiovascular: Irregular rhythm. No murmurs, rubs or gallops. Intact distal pulses. Pulmonary/Chest: No respiratory distress. Breath sounds clear and equal bilaterally. Coarse breath sounds in bilateral lungs. On 2 L nasal cannula. Abdominal: Abdomen soft, no tenderness, rebound or guarding. Musculoskeletal: No tenderness or deformity noted. +1 pitting edema of bilateral lower extremities. Skin: Warm and dry. No rash, erythema, pallor or cyanosis Psychiatric: Appropriate mood and affect for situation. Neurological: Alert and keenly responsive. CN II-XII grossly intact, moving all extremities equally and fully. MDM: - Vitals signs showed hypertension and hypoxia. Patient started on 2 L nasal cannula - History obtained via patient. History as above. - Chronic conditions affecting care: morbid obesity; DM-2; CKD; diastolic CHF; hypothyroidism; HLD - Differential diagnoses include, but are not limited to: Congestive heart failure; acute coronary syndrome; COPD/asthma exacerbation; pulmonary edema; pulmonary embolism; pneumonia; pneumothorax; viral syndrome - Order placed for continuous cardiac monitoring. At this time, monitor showed rate of 73 bpm with irregular rhythm, per my interpretation. - External medical records reviewed. Primary care visit note from today was reviewed. Patient was seen in the clinic for increased dyspnea and borderline hypoxia. She test positive for COVID-19 in the office. She was recommended to present to the emergency department due to her borderline oxygen saturation - EKG interpreted by myself showed atrial fibrillation. Rate 77 bpm. QT 390. No acute ischemic changes. - Laboratory workup interpreted by myself showed normal WBC; normal PT/INR; CKD (Cr 2.13 - baseline 2.0); normal troponin; elevated BNP (490) - UA negative for infection - Viral respiratory panel positive for COVID-19 - VBG shows respiratory acidosis (PH 7.35; pCO2 63 mmHg) - CXR shows pulmonary vascular congestion, per my interpretation. Radiology notes a possible trace left pleural effusion and right infrahilar and left basilar opacities concerning for potential pneumonia. - Patient complaining of a headache while in the emergency department. She had taken 1000 mg of Tylenol prior to arrival. She was given 25 mg IV Benadryl and 5 mg IV Compazine for headache management. She is given 40 mg IV Solu-Medrol in the setting of her COVID-19 diagnosis. - Patient does appear to be having CHF exacerbation on top of her COVID-19 infection. She already took 80 mg of oral Lasix at home, so further IV diuretic was not administered in the emergency department - Discussion was had with case resolution specialist about patient's case and need for admission - Hospitalist, Dr. Acosta, consulted for admission - Patient admitted to [facility] service for further evaluation and management. ASSESSMENT AND PLAN: Diagnosis: Acute hypoxic respiratory failure; COVID-19 infection; acute CHF exacerbation; elevated BNP Plan: Admit Past Med/Surg History Problem List (Updated 06/30/24 @ 17:54 by Lesly Gilbert MD) COVID-19 (Acute) Elevated brain natriuretic peptide (BNP) level (Acute) Acute exacerbation of CHF (congestive heart failure) (Acute) Acute hypoxic respiratory failure (Acute) NATASHA (acute kidney injury) (Acute) Hypoxia (Acute) Vitamin D deficiency Acquired foot deformity Abnormal ankle brachial index Wears hearing aid in both ears Kevin Teixeira [id number] disp 01/2023 Ankylosing spondylitis (Chronic) Asthma (Chronic) CKD (chronic kidney disease), stage III Polyneuropathy (Chronic) Nocturnal hypoxemia (Chronic) Chronic anticoagulation (Chronic) Thoracic and lumbosacral neuritis (Chronic) Chronic pain (Chronic) Type 2 diabetes mellitus with diabetic peripheral angiopathy without gangrene Atrial fibrillation Sleep apnea CPAP Morbid obesity (Chronic) Cervical radiculopathy (Chronic) Microalbuminuria Dementia Bilateral leg weakness (Acute) Bifascicular bundle branch block Spinal stenosis Statin myopathy (Acute) Chronic lumbar pain Sensorineural hearing loss (SNHL) of both ears Mild to moderate HF SNHL AU Bilateral tinnitus COVID-19 (Acute) Acute urinary retention (Acute) Diastolic CHF Hypoxia (Acute) Morbid obesity with BMI of 40.0-44.9, adult Ambulatory dysfunction (Acute) Abdominal wall abscess at site of surgical wound Infected hernioplasty mesh Draining cutaneous sinus tract UTI (urinary tract infection) Medical History Persistent atrial fibrillation Iron deficiency Proteinuria Chest pressure Pulmonary edema CKD (chronic kidney disease) stage 4, GFR 15-29 ml/min Controlled type 2 diabetes mellitus, with long-term current use of insulin Anemia Paroxysmal atrial fibrillation Hypertension NATASHA (acute kidney injury) COVID GERD (gastroesophageal reflux disease) Toxic encephalopathy Atrial fibrillation with slow ventricular response Fall Primary hyperparathyroidism Hypercalcemia Sinus bradycardia Insomnia Familial tremor Dysphagia Dysesthesia Allergic rhinitis Seborrheic keratosis Hyperparathyroidism Loss of protective sensation of skin of deformed foot Diabetic peripheral neuropathy Controlled type 2 diabetes mellitus with neurologic complication, with long-term current use of insulin Osteoarthritis Degenerative disc disease Chronic back pain GERD (gastroesophageal reflux disease) Septicemia Hypothyroidism Hyperlipidemia Hallux valgus (acquired), left foot Callus Acquired hallux valgus of right foot Acquired claw toe of right foot Acquired claw toe of left foot Chest pain Surgical History Nausea and vomiting after administration of anesthetic agent History of bilateral tubal ligation Fusion of spine History of total shoulder replacement History of total hip arthroplasty History of total knee replacement History of herniorrhaphy History of appendectomy History of cholecystectomy History of esophagogastroduodenoscopy (EGD) History of colonoscopy History of cataract surgery History of tonsillectomy History of adenoidectomy Family History Father Family history of diabetes mellitus Arthritis Hypertension Stroke Lung disease Obesity Diabetes Mother Arthritis Diabetes Hypertension Stroke Obesity Depression Brother Depression Suicide Aunt Uterine cancer Grandfather (Maternal) Colorectal cancer Aunt Colorectal cancer Denies family history of Prostate cancer Myocardial infarction Breast cancer Social History Smoking Status: Never smoker Second Hand Exposure: No; Do You Dip or Chew Tobacco: No; Hx Alcohol Use: No Hx Substance Use: No Preferred Language: Japanese Communication Ability: Effective Visual Impairment: Limited Hearing Ability: Normal Secondary Market Manager Required: No Beliefs That Will Affect Care: None marital status: Current Living Situation: Spouse current occupational status: retired How many Children do You have: 4 Feels Safe at Home: Yes Childhood Exposure to Second-Hand Smoke: Yes Diet: diabetic and regular caffeine: Yes (tea daily) Dental Care, Regularly: Yes Physical Activity Frequency: 3-4 Times per Week Seatbelt Use: always Sunscreen Use: Yes Do you think of yourself as: straight/heterosexual Gender Identity: Male Assistive Devices: CPAP, Glasses, Oxygen - at Night, Stair Lift and Walker Allergies Allergies Allergy/AdvReac Type Severity Reaction Status Date / Time Aminoglycosides Allergy Intermediate rash Verified 06/30/24 13:18 neomycin Allergy Intermediate RASH Verified 06/30/24 13:18 nickel Allergy Intermediate rash Verified 06/30/24 13:18 piroxicam Allergy Intermediate RASH Verified 06/30/24 13:18 polymyxin B Allergy Intermediate rash Verified 06/30/24 13:18 house dust Allergy Mild Sneezing Verified 06/30/24 13:18 oxycodone [From Roxicodone] AdvReac Mild Shakiness Verified 06/30/24 13:18 [id number]-AxG Reductase AdvReac Mild MUSCLE AND Verified 06/30/24 13:18 Inhibitor JOINT PAIN [Yyivrwv-Gwt-Oqw Reductase Inhibitor] Home Meds Home Medications Medication Instructions Recorded Confirmed metoprolol tartrate 25 mg tablet 25 mg PO .NOON AND BEDTIME 02/09/23 06/30/24 triamcinolone acetonide 0.1 % 1 applic topical BID PRN .flare ups 02/09/23 06/30/24 topical ointment levothyroxine 175 mcg tablet 175 mcg PO UD 08/17/23 06/30/24 vitamins A,C,H-xtoa-pgcwls 4,296 1 cap PO .QAM AND PM 09/14/23 06/30/24 mcg-226 mg-90 mg capsule (PreserVision AREDS) insulin glargine 100 unit/mL (3 5 unit subcut HS 12/07/23 06/30/24 mL) subcutaneous pen (Lantus Solostar U-100 Insulin) polyethylene glycol 3350 17 gram 17 g PO QAM constipation 12/07/23 06/30/24 oral powder packet (Miralax) trazodone 50 mg tablet 100 mg PO HS sleep 04/11/24 06/30/24 CPAP Machine 05/15/24 06/30/24 acetaminophen 500 mg tablet 1,000 mg PO TID fever or pain 05/15/24 06/30/24 azelastine 137 mcg (0.1 %) nasal See Rx Instructions intranasal BID 05/15/24 06/30/24 spray PRN Other cetirizine 10 mg capsule (Zyrtec) 10 mg PO DAILY PRN allergies 05/15/24 06/30/24 cholecalciferol (vitamin D3) 25 25 mcg PO .AFTERNOON 05/15/24 06/30/24 mcg (1,000 unit) capsule cinacalcet 30 mg tablet (Sensipar) 30 mg PO .AFTERNOON 05/15/24 06/30/24 duloxetine 30 mg capsule,delayed 30 mg PO .AFTERNOON 05/15/24 06/30/24 release duloxetine 60 mg capsule,delayed 60 mg PO QAM 05/15/24 06/30/24 release fenofibrate nanocrystallized 145 145 mg PO .NOON 05/15/24 06/30/24 mg tablet fluticasone propionate 50 2 spray intranasal BID PRN Other 05/15/24 06/30/24 mcg/actuation nasal spray,suspension losartan 100 mg tablet 100 mg PO .AFTERNOON 05/15/24 06/30/24 pregabalin 75 mg capsule (Lyrica) 75 mg PO UD 05/15/24 06/30/24 rabeprazole 20 mg tablet,delayed 20 mg PO QAM 05/15/24 06/30/24 release (AcipHex) melatonin 3 mg tablet 10 mg PO HS 05/29/24 06/30/24 Previous Rx's Medication Instructions Recorded thiamine HCl (vitamin B1) 50 mg 50 mg PO QAM #30 tabs 09/25/20 tablet (Vitamin B-1) amlodipine 5 mg tablet 5 mg PO PM #90 tabs 05/13/21 albuterol sulfate 90 mcg/actuation 1 - 2 puff inhalation Q4H PRN 06/08/23 aerosol inhaler shortness of breath or wheezing #8.5 grams amlodipine 2.5 mg tablet 2.5 mg PO QAM #90 tabs 07/09/23 fluticasone propionate 110 1 puff inhalation BID PRN Wheezing 10/22/23 mcg/actuation HFA aerosol inhaler #12 grams pen needle, diabetic 32 gauge x #100 ea 12/09/23" (BD Ultra-Fine Shanel Pen Needle) chlorzoxazone 750 mg tablet 750 mg PO TID #270 tabs 02/22/24 hydralazine 50 mg tablet 50 mg PO TID #270 tabs 03/01/24 gabapentin 100 mg capsule 100 mg PO QID #120 caps 04/18/24 apixaban 5 mg tablet (Eliquis) 5 mg PO .NOON AND BEDTIME #60 tabs 05/29/24 blood sugar diagnostic (OneTouch #200 ea 05/29/24 Verio test strips) furosemide 20 mg tablet 40 mg (2 x 20 mg) PO QAM #100 tabs 06/02/24 ondansetron 4 mg disintegrating 4 mg PO Q8H PRN nausea and 06/12/24 tablet vomiting #30 tabs Results & Data (ED) Vital Signs Vital Signs - 24 hr 06/30/24 14:45 06/30/24 15:10 06/30/24 15:32 Temperature 36.8 C Temperature Source Temporal Artery Scan Pulse Rate 78 71 Pulse Rate [Left Finger] 73 Pulse Rhythm Regular Regular Pulse Strength Normal Respiratory Rate 22 24 22 Respiratory Effort / Characteristics Non-Labored Spontaneous Respiratory Depth Normal Blood Pressure 162/96 H Blood Pressure [Left Arm] Blood Pressure Mean 118 Blood Pressure Mean [Left Arm] Pulse Oximetry 90 87 L 96 Oxygen Delivery Method Room Air Room Air Nasal Cannula Oxygen Flow Rate 2 Sepsis Recent Fever Within 48 Hours No Sepsis New/Unexplained Change in Mental Status N/A Sepsis Action Taken by Nursing No Action Required 06/30/24 16:13 06/30/24 17:49 Temperature Temperature Source Pulse Rate 72 Pulse Rate [Left Finger] 74 Pulse Rhythm Pulse Strength Respiratory Rate 26 H Respiratory Effort / Characteristics Respiratory Depth Blood Pressure Blood Pressure [Left Arm] 176/94 H Blood Pressure Mean Blood Pressure Mean [Left Arm] 121 Pulse Oximetry 96 Oxygen Delivery Method Nasal Cannula Oxygen Flow Rate 2 Sepsis Recent Fever Within 48 Hours Sepsis New/Unexplained Change in Mental Status Sepsis Action Taken by Nursing Laboratory Data 06/30/24 15:12 06/30/24 15:12 Lab Results 06/30/24 06/30/24 Range/Units 15:12 15:31 WBC 7.73 (4.8-10.8) K/ul RBC 4.52 (4.20-5.40) M/uL Hgb 12.8 (12.0-16.0) g/dl Hct 40.0 (37.0-47.0) % MCV 88.5 (80.0-100.0) fL MCH 28.3 (25.0-34.0) pg MCHC 32.0 (32.0-36.0) g/dL RDW Std Deviation 47.1 H (36.4-46.3) fL RDW Coeff of Jeanette 14.6 H (11.5-14.5) % Plt Count 215 (130-400) K/uL MPV 11.0 (9.4-12.4) fL Immature Gran % (Auto) 0.8 % Neut % (Auto) 71.0 % Lymph % (Auto) 9.1 % [place] % (Auto) 16.8 % Eos % (Auto) 1.8 % Baso % (Auto) 0.5 % Neut # (Auto) 5.49 (1.40-6.50) K/uL Lymph # (Auto) 0.70 L (1.20-3.40) K/uL [place] # (Auto) 1.30 H (0.11-0.59) K/uL Eos # (Auto) 0.14 (0.00-0.50) K/uL Baso # (Auto) 0.04 (0.00-0.20) K/uL Immature Gran # (Auto) 0.06 (0.01-0.20) K/uL PT 11.4 (9.0-12.0) Seconds INR 1.1 (0.9-1.1) VBG pH 7.35 L (7.36-7.41) VBG pCO2 63 H (38-50) mmHg VBG pO2 25 mmHg VBG HCO3 35 mmol/L VBG O2 Saturation < 60.0 % VBG Base Excess 7.0 mEq/L Sodium 142 (136-145) mmol/L Potassium 4.5 (3.5-5.1) mmol/L Chloride 103 (98-107) mmol/L Carbon Dioxide 33 H (21-32) mmol/L Anion Gap 6 (3-11) BUN 47 H (6-23) mg/dl Creatinine 2.13 H (0.6-1.2) mg/dl Est Cr Clr Drug Dosing 31.7 ml/min eGFR 23.27 BUN/Creatinine Ratio 22.1 H (10-20) Glucose 112 H (70-99(Fasting)) mg/dl Calcium 9.3 (8.6-10.3) mg/dl Magnesium 2.0 (1.7-2.4) mg/dl Total Bilirubin 0.4 (0.2-1.0) mg/dl AST 19 (13-39) U/L ALT 14 (7-52) U/L Alkaline Phosphatase 52 (34-104) U/L Troponin I High Sens 8.2 (0-14) pg/ml B-Natriuretic Peptide 490 H (0-100) pg/ml Total Protein 7.0 (6.0-8.3) gm/dl Albumin 3.8 (3.4-5.0) gm/dl Globulin 3.2 (2.5-4.0) gm/dl Albumin/Globulin Ratio 1.2 (0.9-2) Urine Color Yellow Urine Appearance Clear (Clear) Urine pH 7.0 (4.5-7.5) Ur Specific [place] 1.011 (1.000-1.030) Urine Protein 3+ H (Negative) Urine Glucose (UA) Negative (Negative) Urine Ketones Negative (Negative) Urine Blood Negative (Negative) Urine Nitrite Negative (Negative) Urine Bilirubin Negative (Negative) Urine Urobilinogen Negative (Negative) Ur Leukocyte Esterase Negative (Negative) Urine WBC (Auto) 0-5 (0-5) /hpf Urine RBC (Auto) 0-2 (0-2) /hpf U Hyaline Cast (Auto) 0-2 (0-2) /lpf U Epithel Cells (Auto) 0-2 (0-2) /hpf Urine Bacteria (Auto) None Seen (None Seen) Adenovirus (PCR) Not Detected (NotDetected) B. pertussis DNA (PCR) Not Detected (NotDetected) B.parapertussis DNA PCR Not Detected (NotDetected) C. pneumoniae DNA (PCR) Not Detected (NotDetected) Coronavirus OC43 (PCR) Not Detected (NotDetected) Coronavirus HKU1 (PCR) Not Detected (NotDetected) Coronavirus 229E (PCR) Not Detected (NotDetected) SARS-CoV-2 (PCR) DETECTED A (NotDetected) Coronavirus NL63 (PCR) Not Detected (NotDetected) Human Metapneumovir PCR Not Detected (NotDetected) Influenza Type A (PCR) Not Detected (NotDetected) Influenza Type B (PCR) Not Detected (NotDetected) M. pneumoniae (PCR) Not Detected (NotDetected) Parainfluenza 1 (PCR) Not Detected (NotDetected) Parainfluenza 2 (PCR) Not Detected (NotDetected) Parainfluenza 3 (PCR) Not Detected (NotDetected) Parainfluenza 4 (PCR) Not Detected (NotDetected) RSV (PCR) Not Detected (NotDetected) Entero/Rhino (PCR) Not Detected (NotDetected) Administered Medications Discontinued Medications Diphenhydramine HCl (Diphenhydramine 50 Mg/Ml Vial) 25 mg IV NOW STA Stop: 06/30/24 17:08 Last Admin: 06/30/24 17:15 Dose: 25 mg Documented By: SHA Prochlorperazine (Compazine) 1 mls @ 1 mls/min IV ONE ONE Stop: 06/30/24 17:08 Last Admin: 06/30/24 17:16 Dose: 1 mls/min Documented By: SHA Methylprednisolone (Methylprednisolone 125 Mg/2 Ml Vial) 40 mg IV NOW STA Stop: 06/30/24 17:08 Last Admin: 06/30/24 17:14 Dose: 40 mg Documented By: SHA Imaging Data Radiologist's Impression: Chest X-Ray 06/30/24 14:54 XR chest 1V portable CLINICAL HISTORY: Dyspnea. COMPARISON STUDY: Chest radiograph May 15, 2024. Chest CT October 26, 2022. FINDINGS: Right shoulder arthroplasty is partially imaged. Patient is rotated. Cardiomegaly is unchanged. There is pulmonary vascular congestion. Apparent hazy right infrahilar and left basilar opacity is noted. There is no pneumothorax. Possible trace left pleural effusion. IMPRESSION: 1. Cardiomegaly with pulmonary vascular congestion. Possible trace left pleural effusion. 2. Apparent hazy right infrahilar and left basilar opacities. These may be artifactual although pneumonia could appear similar. Radiographic follow-up to ensure resolution is recommended. ACT 112: Negative or not required by law. Electronically signed by: Kd Maguire M.D. 06/30/2024 3:56 PM Discharge Plan Visit Data Chief Complaint: Referred by Doctor Stated Complaint: +COV POS, ER EVALUATION ED Provider: Lesly Gilbert Discharge Problem: Acute hypoxic respiratory failure, Acute exacerbation of CHF (congestive heart failure), Elevated brain natriuretic peptide (BNP) level, COVID-19 Forms Stand Alone Forms: My [facility] [place] [employer] Prescriptions Prescriptions: No Action amlodipine 5 mg tablet 5 mg PO PM Qty: 90 3RF albuterol sulfate 90 mcg/actuation HFA aerosol inhaler 1 - 2 puff inhalation Q4H PRN (Reason: shortness of breath or wheezing) Qty: 8.5 1RF amlodipine 2.5 mg tablet 2.5 mg PO QAM Qty: 90 3RF fluticasone propionate 110 mcg/actuation HFA aerosol inhaler 1 puff inhalation BID PRN (Reason: Wheezing) Qty: 12 0RF (DME) pen needle, diabetic [BD Ultra-Fine Shanel Pen Needle] 32 gauge x 5/32" needle See Rx Instructions .ROUTE .MEDSUPPLY Qty: 100 3RF Rx Instructions: Use one daily with insulin chlorzoxazone 750 mg tablet 750 mg PO TID Qty: 270 1RF gabapentin 100 mg capsule 100 mg PO QID Qty: 120 1RF (DME) OneTouch Verio test strips Strip See Rx Instructions .Route Qty: 200 11RF Rx Instructions: Test blood sugar 4 times a day Eliquis 5 mg tablet 5 mg PO .NOON AND BEDTIME Qty: 60 5RF melatonin 3 mg tablet 10 mg PO HS ondansetron 4 mg tablet,disintegrating 4 mg PO Q8H PRN (Reason: nausea and vomiting) Qty: 30 2RF trazodone 50 mg tablet 100 mg PO HS PreserVision AREDS 4,296 mcg-226 mg-90 mg capsule 1 cap PO .QAM AND PM insulin glargine [Lantus Solostar U-100 Insulin] 100 unit/mL (3 mL) insulin pen 5 unit subcut HS polyethylene glycol 3350 [Miralax] 17 gram powder in packet 17 g PO QAM levothyroxine 175 mcg tablet 175 mcg PO UD Rx Instructions: Take in AM on empty stomach with water 30 min prior to any oral intake. only 6 days a week and half a tab (usually on weekends) per hydralazine 50 mg tablet 50 mg PO TID Qty: 270 3RF furosemide 20 mg tablet 40 mg PO QAM Qty: 100 3RF Hold Instructions: Resume on 03/18/23. hold with daily weights and BMP Wednesday, can resume if weights climbing and/or creatinine improves Rx Instructions: may take up to 80 mg daily as needed for fluid retention thiamine HCl (vitamin B1) [Vitamin B-1] 50 mg Tablet 50 mg PO QAM Qty: 30 0RF metoprolol tartrate 25 mg tablet 25 mg PO .NOON AND BEDTIME triamcinolone acetonide 0.1 % ointment 1 applic topical BID PRN (Reason: .flare ups) (DME) CPAP Machine Rx Instructions: CPAP 16 cmH2O, [facility] medical; rabeprazole [AcipHex] 20 mg tablet,delayed release (DR/EC) 20 mg PO QAM acetaminophen 500 mg tablet 1,000 mg PO TID azelastine 137 mcg (0.1 %) spray,non-aerosol See Rx Instructions intranasal BID PRN (Reason: Other) Rx Instructions: 1 spray each nostril twice a day losartan 100 mg tablet 100 mg PO .AFTERNOON Rx Instructions: Takes mid-afternoon fluticasone propionate 50 mcg/actuation spray,suspension 2 spray intranasal BID PRN (Reason: Other) Rx Instructions: administer 2 sprays into each nostril twice daily cholecalciferol (vitamin D3) 25 mcg (1,000 unit) capsule 25 mcg PO .AFTERNOON cinacalcet [Sensipar] 30 mg tablet 30 mg PO .AFTERNOON Rx Instructions: Takes mid-afternoon duloxetine 30 mg capsule,delayed release(DR/EC) 30 mg PO .AFTERNOON duloxetine 60 mg capsule,delayed release(DR/EC) 60 mg PO QAM pregabalin [Lyrica] 75 mg capsule 75 mg PO UD Rx Instructions: 75 mg po qam and afternoon. then 150 mg at bedtime fenofibrate nanocrystallized 145 mg tablet 145 mg PO .NOON Rx Instructions: Takes 1200 Zyrtec 10 mg capsule 10 mg PO DAILY PRN (Reason: allergies ) Referrals Referrals: Dirk Cooper DO [Primary Care Provider] -
[2024-06-30 15:49] LABS: Appearance Urine Clear (Clear); Bacteria Urine Automated None Seen (None Seen); Bilirubin Urine Negative (Negative); Blood Urine Negative (Negative); Cast Urine Automated 0-2 /lpf (0-2); Color Urine Yellow; Epithelial Cell Urine Auto 0-2 /hpf (0-2); Glucose Urine UA Negative (Negative); Ketones Urine Negative (Negative); Leukocyte Esterase Urine Negative (Negative); Nitrite Urine Negative (Negative); Protein Urine 3+ (Negative); RBC Urine Automated 0-2 /hpf (0-2); Specific Gravity Urine 1.011 (1.000-1.030); Urobilinogen Urine Negative (Negative); WBC Urine Automated 0-5 /hpf (0-5)
[2024-06-30 15:51] LABS: Albumin Globulin Ratio 1.2 (0.9-2); Albumin Level 3.8 gm/dl (3.4-5.0); BUN Creatinine Ratio 22.1 (10-20); Bilirubin,Total 0.4 mg/dl (0.2-1.0); Calcium 9.3 mg/dl (8.6-10.3); Creatinine Clr Calc Pharmacy 31.7 ml/min; Globulin 3.2 gm/dl (2.5-4.0); Potassium 4.5 mmol/L (3.5-5.1)
[2024-06-30 15:57] LABS: Troponin I High Sensitivity 8.2 pg/ml (0-14)
[2024-06-30 15:58] LABS: INR 1.1 (0.9-1.1); Prothrombin Time 11.4 Seconds (9.0-12.0)
--- NOTE | 2024-06-30 15:58 | XRay Report ---
XR chest 1V portable CLINICAL HISTORY: Dyspnea. COMPARISON STUDY: Chest radiograph May 15, 2024. Chest CT October 26, 2022. FINDINGS: Right shoulder arthroplasty is partially imaged. Patient is rotated. Cardiomegaly is unchan ged. There is pulmonary vascular congestion. Apparent hazy right infrahilar and left basilar opacity is noted. There is no pneumothorax. Possible trace left pleural effusion. IMPRESSION: 1. Cardiomegaly with pulmonary vascular congestion. Possible trace left pleural effusion. 2. Apparent hazy right infrahilar and left basilar opacities. These may be artifactual although pneum onia could appear similar. Radiographic follow-up to ensure resolution is recommended. ACT 112: Negative or not required by law. Electronically signed by: Kd Maguire M.D. 06/30/2024 3:56 PM
[2024-06-30 16:43] LABS: Adenovirus PCR Not Detected (NotDetected); Bordetella parapertussis PCR Not Detected (NotDetected); Bordetella pertussis PCR Not Detected (NotDetected); Chlamydia pneumoniae PCR Not Detected (NotDetected); Coronavirus 229E PCR Not Detected (NotDetected); Coronavirus CoV-2 (COVID19)PCR DETECTED (NotDetected); Coronavirus HKU1 PCR Not Detected (NotDetected); Coronavirus NL63 PCR Not Detected (NotDetected); Coronavirus OC43PCR Not Detected (NotDetected); Human Metapneumovirus PCR Not Detected (NotDetected); Influenza A PCR Not Detected (NotDetected); Influenza B PCR Not Detected (NotDetected); Mycoplasma pneumoniae PCR Not Detected (NotDetected); Parainfluenza Virus 1 PCR Not Detected (NotDetected); Parainfluenza Virus 2 PCR Not Detected (NotDetected); Parainfluenza Virus 3 PCR Not Detected (NotDetected); Parainfluenza Virus 4 PCR Not Detected (NotDetected); Respiratory Syncytial VirusPCR Not Detected (NotDetected); Rhinovirus/Enterovirus PCR Not Detected (NotDetected)
[2024-06-30] MEDS: methylPREDNISolone 125 MG/2 ML VIAL IV STA (17:14)
[2024-06-30] MEDS: diphenhydrAMINE 50 MG/ML VIAL IV STA (17:15)
[2024-06-30] MEDS: PROCHLORPERAZINE 1 ML IV ONE (17:16)
--- NOTE | 2024-06-30 17:31 | History & Physical Report ---
Date of Service June 30, 2024 Assessment & Plan (1) COVID-19: Plan: COVID 19 diagnosed on admission Symptomatic with hypoxia, dyspnea, headache, sore throat, rhinorrhea, cough, sputum production - no leukopenia or leukocytosis - CXR hazy right infrahilar and left basilar opacity, may be artifactual although pneumonia could appear similar - requiring 2L oxygen via nasal cannula - incentive spirometry Q1H - oxygen as needed; although attempt to wean off as tolerated - dexamethasone 6 mg daily to begin 07/01 - remdesivir 200 mg IV on admission, continue with 100 mg daily x 5 days (2) Acute exacerbation of CHF (congestive heart failure): Plan: history of diastolic heart failure takes 40-80 mg PO Lasix daily based on weight - Last echocardiogram on 05/2024 showing systolic function, mild LVH, EF 60 to 65%, mild aortic regurg, mild tricuspid regurg - CXR showing cardiomegaly with Pulmonary vascular congestion, possible trace le ft pleural effusion - BNP 490 on admission - Heart healthy, low-sodium, fluid restricted diet - diuresis with 40 IV Lasix daily - will start 07/01, took 80 Mg p.o. Lasix 06/30 with urine output between 1 to 2 L - Strict I&O monitoring - Daily weights - Teds - daily BMP and Mg with diuretic (3) Acute hypoxic respiratory failure: Plan: 87 on RA -> 2 L NC 2/2 COVID and acute CHF - no leukocytosis, no left shift, afebrile, VSS - denies CP, EKG showing no ST changes - incentive spirometry - wean O2 as tolerated, uses prn 2L NC at home (4) CKD (chronic kidney disease), stage III: Plan: history of stage IV CKD, follows with nephrology and endocrinology outpatient mildly worsening kidney function on admission - Cr currently 2.13 (Baseline ~2.0) - +3 urine protein, chronic - recent 05/15/24 Protein/Cr ratio 9.1 indicating nephrotic range - continue cinacalcet, fenofibrate - continue Lasix 40 mg IV daily (5) Controlled type 2 diabetes mellitus, with long-term current use of insulin: Plan: Controlled on Insulin at home - Most recent A1C 6.1 - expect increase in glucose with steroid use - loose SSI with target BSG range 110-140mg/dL, CF 40 - continue home Lantus 5 units at bedtime - T2DM diet - BSG ACHS if eating, q6h if npo Polyneuropathy - continue chlorzoxazone and Lyrica (6) Persistent atrial fibrillation: Plan: - EKG on admission showed a fib, rate 77 - recent TSH WNL given age - mildly elevated - anticoagulated with Eliquis, rate controlled with metoprolol - continue - Continue to monitor on Telemetry (7) Hypothyroidism: Plan: - Had elevation of TSH recently added an extra 87.5 mcg of levothyroxine on Sundays (early May) - Was to have LFTs rechecked in 4 to 6 weeks - LFTs within normal limits on admission - continue levothyroxine Plan Chronic stable diagnoses: HTN - continue amlodipine, losartan, metoprolol, and lasix Anxiety/depression - continue duloxetine, hydralazine, trazodone chronic constipation continue MiraLAX daily GERD - continue PPI Thiamine Deficiency continue supplement TIERRA - continue CPAP HS insomnia - continue melatonin HS anemia - Chronic constipation send no p.o. iron supplement, needed IV Venofer during recent admission, hemoglobin stable VTE ppx: Eliquis Diet: T2DM, heart healthy, low-sodium, 2000 mL fluid restriction Dispo: med/tele Admission and Anticipated Discharge Date Admission Date: 06/30/24 History of Present Illness Chief Complaint: referred by Primary Care Provider: Dirk Cooper DO Patient and her , Dr. Tolliver, seen at bedside. Patient is a 78-year-old female with a past medical history of CHF, CKD stage IV, type 2 diabetes with polyneuropathy, paroxysmal A-fib, obesity, hyperlipidemia, hypertension, GERD, hypothyroidism, anemia, and macular degeneration. She presents today due to hypoxia and shortness of breath after testing positive for COVID. Her also has COVID. She stated that yesterday she started with shortness of breath at rest and on exertion, along with a sore throat, watery rhinorrhea, cough, yellow/white sputum production, and a headache today that has now resolved. Her takes her weight daily and adjust her Lasix as needed. She is at 40 mg daily at baseline, if her weight is up and her blood pressure is stable he is to increase it to 80 daily. He gave her a dose of 80 this morning because her weight was up 2 pounds. He gives her the increased dose of 80 mg about 50% of the time. She has home oxygen as needed, her O2 sats this morning were 84% and she was placed on 2 L O2 by her . She has been consistent with using her CPAP overnight. Since taking the Lasix this morning, she has urinated frequently, 800 mL urine output recorded in ED so far. Patient denies fever, chills, dizziness, lightheadedness, vision changes, chest pain, abdominal pain, nausea, vomiting, diarrhea, constipation, edema, numbness, tingling. She wishes to be full code at this time. She took all of her home AM and afternoon medications today. Allergies Allergy/AdvReac Type Severity Reaction Status Date / Time Aminoglycosides Allergy Intermediate rash Verified 06/30/24 13:18 neomycin Allergy Intermediate RASH Verified 06/30/24 13:18 nickel Allergy Intermediate rash Verified 06/30/24 13:18 piroxicam Allergy Intermediate RASH Verified 06/30/24 13:18 polymyxin B Allergy Intermediate rash Verified 06/30/24 13:18 house dust Allergy Mild Sneezing Verified 06/30/24 13:18 oxycodone [From Roxicodone] AdvReac Mild Shakiness Verified 06/30/24 13:18 Ojzcdrj-WTO-QeJ Reductase AdvReac Mild MUSCLE AND Verified 06/30/24 13:18 Inhibitor JOINT PAIN [Kgqigbk-Rcv-Rmm Reductase Inhibitor] Home Medications Medication Instructions Recorded Confirmed Type thiamine HCl (vitamin B1) 50 mg 50 mg PO QAM #30 tabs 09/25/20 06/30/24 Rx tablet (Vitamin B-1) amlodipine 5 mg tablet 5 mg PO PM #90 tabs 05/13/21 06/30/24 Rx metoprolol tartrate 25 mg tablet 25 mg PO .NOON AND BEDTIME 02/09/23 06/30/24 History triamcinolone acetonide 0.1 % 1 applic topical BID PRN .flare ups 02/09/23 06/30/24 History topical ointment albuterol sulfate 90 mcg/actuation 1 - 2 puff inhalation Q4H PRN 06/08/23 06/30/24 Rx aerosol inhaler shortness of breath or wheezing #8.5 grams amlodipine 2.5 mg tablet 2.5 mg PO QAM #90 tabs 07/09/23 06/30/24 Rx levothyroxine 175 mcg tablet 175 mcg PO UD 08/17/23 06/30/24 History vitamins A,C,C-pwnr-ooinjm 4,296 1 cap PO .QAM AND PM 09/14/23 06/30/24 History mcg-226 mg-90 mg capsule (PreserVision AREDS) fluticasone propionate 110 1 puff inhalation BID PRN Wheezing 10/22/23 06/30/24 Rx mcg/actuation HFA aerosol inhaler #12 grams insulin glargine 100 unit/mL (3 5 unit subcut HS 12/07/23 06/30/24 History mL) subcutaneous pen (Lantus Solostar U-100 Insulin) polyethylene glycol 3350 17 gram 17 g PO QAM constipation 12/07/23 06/30/24 History oral powder packet (Miralax) pen needle, diabetic 32 gauge x #100 ea 12/09/23 06/30/24 Rx 5/32" (BD Ultra-Fine Shanel Pen Needle) chlorzoxazone 750 mg tablet 750 mg PO TID #270 tabs 02/22/24 06/30/24 Rx hydralazine 50 mg tablet 50 mg PO TID #270 tabs 03/01/24 06/30/24 Rx trazodone 50 mg tablet 100 mg PO HS sleep 04/11/24 06/30/24 History gabapentin 100 mg capsule 100 mg PO QID #120 caps 04/18/24 06/30/24 Rx CPAP Machine 05/15/24 06/30/24 History acetaminophen 500 mg tablet 1,000 mg PO TID fever or pain 05/15/24 06/30/24 History azelastine 137 mcg (0.1 %) nasal See Rx Instructions intranasal BID 05/15/24 06/30/24 History spray PRN Other cetirizine 10 mg capsule (Zyrtec) 10 mg PO DAILY PRN allergies 05/15/24 06/30/24 History cholecalciferol (vitamin D3) 25 25 mcg PO .AFTERNOON 05/15/24 06/30/24 History mcg (1,000 unit) capsule cinacalcet 30 mg tablet (Sensipar) 30 mg PO .AFTERNOON 05/15/24 06/30/24 History duloxetine 30 mg capsule,delayed 30 mg PO .AFTERNOON 05/15/24 06/30/24 History release duloxetine 60 mg capsule,delayed 60 mg PO QAM 05/15/24 06/30/24 History release fenofibrate nanocrystallized 145 145 mg PO .NOON 05/15/24 06/30/24 History mg tablet fluticasone propionate 50 2 spray intranasal BID PRN Other 05/15/24 06/30/24 History mcg/actuation nasal spray,suspension losartan 100 mg tablet 100 mg PO .AFTERNOON 05/15/24 06/30/24 History pregabalin 75 mg capsule (Lyrica) 75 mg PO UD 05/15/24 06/30/24 History rabeprazole 20 mg tablet,delayed 20 mg PO QAM 05/15/24 06/30/24 History release (AcipHex) apixaban 5 mg tablet (Eliquis) 5 mg PO .NOON AND BEDTIME #60 tabs 05/29/24 06/30/24 Rx blood sugar diagnostic (OneTouch #200 ea 05/29/24 06/30/24 Rx Verio test strips) melatonin 3 mg tablet 10 mg PO HS 05/29/24 06/30/24 History furosemide 20 mg tablet 40 mg (2 x 20 mg) PO QAM #100 tabs 06/02/24 06/30/24 Rx ondansetron 4 mg disintegrating 4 mg PO Q8H PRN nausea and 06/12/24 06/30/24 Rx tablet vomiting #30 tabs Past Med/Surg History Problem List (Updated 06/30/24 @ 18:25 by Radha Longoria PA-C) Hypothyroidism Persistent atrial fibrillation Controlled type 2 diabetes mellitus, with long-term current use of insulin COVID-19 (Acute) Elevated brain natriuretic peptide (BNP) level (Acute) Acute exacerbation of CHF (congestive heart failure) (Acute) Acute hypoxic respiratory failure (Acute) NATASHA (acute kidney injury) (Acute) Hypoxia (Acute) Vitamin D deficiency Acquired foot deformity Abnormal ankle brachial index Wears hearing aid in both ears Kevin Teixeira [id number] disp 01/2023 Ankylosing spondylitis (Chronic) Asthma (Chronic) CKD (chronic kidney disease), stage III Polyneuropathy (Chronic) Nocturnal hypoxemia (Chronic) Chronic anticoagulation (Chronic) Thoracic and lumbosacral neuritis (Chronic) Chronic pain (Chronic) Type 2 diabetes mellitus with diabetic peripheral angiopathy without gangrene Atrial fibrillation Sleep apnea CPAP Morbid obesity (Chronic) Cervical radiculopathy (Chronic) Microalbuminuria Dementia Bilateral leg weakness (Acute) Bifascicular bundle branch block Spinal stenosis Statin myopathy (Acute) Chronic lumbar pain Sensorineural hearing loss (SNHL) of both ears Mild to moderate HF SNHL AU Bilateral tinnitus COVID-19 (Acute) Acute urinary retention (Acute) Diastolic CHF Hypoxia (Acute) Morbid obesity with BMI of 40.0-44.9, adult Ambulatory dysfunction (Acute) Abdominal wall abscess at site of surgical wound Infected hernioplasty mesh Draining cutaneous sinus tract UTI (urinary tract infection) Medical History Persistent atrial fibrillation Iron deficiency Proteinuria Chest pressure Pulmonary edema CKD (chronic kidney disease) stage 4, GFR 15-29 ml/min Controlled type 2 diabetes mellitus, with long-term current use of insulin Anemia Paroxysmal atrial fibrillation Hypertension NATASHA (acute kidney injury) COVID GERD (gastroesophageal reflux disease) Toxic encephalopathy Atrial fibrillation with slow ventricular response Fall Primary hyperparathyroidism Hypercalcemia Sinus bradycardia Insomnia Familial tremor Dysphagia Dysesthesia Allergic rhinitis Seborrheic keratosis Hyperparathyroidism Loss of protective sensation of skin of deformed foot Diabetic peripheral neuropathy Controlled type 2 diabetes mellitus with neurologic complication, with long-term current use of insulin Osteoarthritis Degenerative disc disease Chronic back pain GERD (gastroesophageal reflux disease) Septicemia Hypothyroidism Hyperlipidemia Hallux valgus (acquired), left foot Callus Acquired hallux valgus of right foot Acquired claw toe of right foot Acquired claw toe of left foot Chest pain Surgical History Nausea and vomiting after administration of anesthetic agent History of bilateral tubal ligation Fusion of spine History of total shoulder replacement History of total hip arthroplasty History of total knee replacement History of herniorrhaphy History of appendectomy History of cholecystectomy History of esophagogastroduodenoscopy (EGD) History of colonoscopy History of cataract surgery History of tonsillectomy History of adenoidectomy Family History Father Family history of diabetes mellitus Arthritis Hypertension Stroke Lung disease Obesity Diabetes Mother Arthritis Diabetes Hypertension Stroke Obesity Depression Brother Depression Suicide Aunt Uterine cancer Grandfather (Maternal) Colorectal cancer Aunt Colorectal cancer Denies family history of Prostate cancer Myocardial infarction Breast cancer Social History Smoking Status: Never smoker Second Hand Exposure: No; Do You Dip or Chew Tobacco: No; Hx Alcohol Use: No Hx Substance Use: No Preferred Language: Syriac Communication Ability: Effective Visual Impairment: Limited Hearing Ability: Normal Certified Driver Examiner Required: No Beliefs That Will Affect Care: None marital status: Current Living Situation: Spouse current occupational status: retired How many Children do You have: 4 Feels Safe at Home: Yes Childhood Exposure to Second-Hand Smoke: Yes Diet: diabetic and regular caffeine: Yes (tea daily) Dental Care, Regularly: Yes Physical Activity Frequency: 3-4 Times per Week Seatbelt Use: always Sunscreen Use: Yes Do you think of yourself as: straight/heterosexual Gender Identity: Male Assistive Devices: CPAP, Glasses, Oxygen - at Night, Stair Lift and Walker Review of Systems Review of Systems: see HPI Physical Exam Physical Exam: The patient is awake, alert and oriented 3, normocephalic and atraumatic, in no acute distress. Non-toxic appearing. HEENT- EOMI, mucous membranes moist. Hearing grossly intact. Heart-normal S1 and S2. No murmurs, rubs or gallops. Lungs-diminished/clear bilaterally, no respiratory distress, no accessory muscle use. 2L O2 via NC. Abdomen-normal bowel sounds and soft. No ascites noted. Non-tender. Extremities- no clubbing, cyanosis, or edema. Rheumatologic-normal range of motion. Psychiatric-normal affect. Results & Data Results & Data Vital Signs (Past 12 Hours) Vital Signs Temp Pulse Pulse Resp BP BP Pulse Ox 06/30/24 16:13 74 26 H 176/94 H 96 06/30/24 15:32 73 22 96 06/30/24 15:10 71 24 87 L 06/30/24 14:45 36.8 C 78 22 162/96 H 90 O2 Del Method O2 Flow Rate 06/30/24 16:13 Nasal Cannula 2 06/30/24 15:32 Nasal Cannula 2 06/30/24 15:10 Room Air 06/30/24 14:45 Room Air Laboratory Results reviewed CBC, PT/INR, VBG, CMP, BNP, bio fire Diagnostic Findings reviewed CXR Medications Administered ED course: 40 Mg IV Solu-Medrol, 25 Mg IV Benadryl, Compazine IV ECG Additional Comments: A-fib, rate 77 Code Status & VTE Plan Code Status full VTE Prophylaxis Plan VTE Prophylaxis will be ordered: Yes Supervising Physician Co-Signing Physician Notes Patient seen and examined, chart reviewed, case discussed with Radha Longoria PA-C and I agree with the assessment and plan as above except as otherwise noted Labs and images reviewed Dyspnea at rest and on exertion, rhinorrhea, +mucous production, +weight gain. Normally on 40 lasix daily if weight up takes 80. Took 80mg PO lasix this morning. CPAP HS, O2 PRN and needed 2L this morning. CXR congested. COVID positive. Agree w/ steroids and remdesivir. Took 80mg PO lasix today, will continue 40mg IV lasix daily starting tomorrow. Strict ins and outs. Seen at bedside, nondistressed fatigue and headache from earlier has resolved. Lungs are diminished and with some crackles which clear on deep breathing in the bases otherwise clear. No lower extremity pitting edema is present. Agree w/ above. PG Care Time/CCT Total # of Minutes Spent Total Time Spent with Patient: Total time spent is greater than 50% in coordination of care (as documented) at patient's floor/unit and/or counseling patient: Coding Level of Care Code 66627 INT INP/OBS CARE MIN Diagnoses COVID-19 U07.1 Acute exacerbation of CHF (congestive heart failure) I50.9 Acute hypoxic respiratory failure J96.01 CKD (chronic kidney disease), stage III N18.3 Controlled type 2 diabetes mellitus, with long-term current use of insulin E11.9; Z79.4 Persistent atrial fibrillation I48.19 Hypothyroidism E03.9
[2024-06-30] MEDS: REMDESIVIR 200 MG in SODIUM CHLORIDE 0.9% 210 ML IV ONE (19:05)
[2024-06-30] MEDS ORDERED: CARBOHYDRATES FOR HYPOGLYCEMIA PO PRN (21:09)
[2024-06-30] MEDS ORDERED: ONDANSETRON INJ 2 MG/ML 2 ML VIAL IV PRN (21:09)
[2024-06-30] MEDS ORDERED: GLUCOSE 10 TAB/TUBE PO PRN (21:09)
[2024-06-30] MEDS ORDERED: AZELASTINE HCL 0.1% NASAL 200 SPRAYS/27,400 MCG BTL PRN (21:09)
[2024-06-30] MEDS ORDERED: DOCUSATE SODIUM 100 MG CAP PO PRN (21:09)
[2024-06-30] MEDS ORDERED: ALBUTEROL HFA 8 GM INHALER INH PRN (21:09)
[2024-06-30] MEDS ORDERED: GLUCAGON FOR INJ 1 MG VIAL SQ PRN (21:09)
[2024-06-30] MEDS ORDERED: GLUCOSE 40% GEL 15 GM TUBE PO PRN (21:09)
[2024-06-30] MEDS ORDERED: ACETAMINOPHEN 325 MG TAB PO PRN (21:09)
[2024-06-30] MEDS ORDERED: DEXTROSE 50% 50 ML SYRINGE IV PRN (21:09)
[2024-06-30] MEDS: INSULIN ASPART PER UNIT CHARGE SC SCH (23:09)
[2024-06-30] MEDS: LANTUS PER UNIT CHARGE SQ SCH (23:10)
[2024-06-30] MEDS: GABAPENTIN 100 MG CAP PO SCH (23:11)
[2024-06-30] MEDS: traZODone HCL 100 MG TAB PO SCH (23:11)
[2024-06-30] MEDS: METOPROLOL TARTRATE 25 MG TAB PO SCH (23:11)
[2024-06-30] MEDS: APIXABAN 5 MG TABLET PO SCH (23:11)
[2024-06-30] MEDS: amLODIPine BESYLATE 5 MG TAB PO SCH (23:11)
[2024-06-30] MEDS: MELATONIN 3 MG TAB PO SCH (23:12)
[2024-06-30] MEDS: hydrALAZINE TAB 50 MG TAB PO SCH (23:12)
[2024-06-30] MEDS: PREGABALIN 75 MG CAP PO SCH (23:12)
[2024-07-01] MEDS: LEVOTHYROXINE SODIUM 175 MCG TABLET PO SCH (06:53)
[2024-07-01 08:52] LABS: Basophils # (auto) 0.03 K/uL (0.00-0.20); Basophils % (auto) 0.7 %; Hematocrit (blood only) 38.1 % (37.0-47.0); Hemoglobin 12.2 g/dl (12.0-16.0); Immature Granulocytes # (auto) 0.05 K/uL (0.01-0.20); Immature Granulocytes % (auto) 1.1 %; Lymphocytes # (auto) 0.74 K/uL (1.20-3.40); Lymphocytes % (auto) 16.3 %; Mean Corpuscular Volume 87.4 fL (80.0-100.0); Mean Platelet Volume 10.8 fL (9.4-12.4); Monocytes % (auto) 15.4 %; Neutrophils # (auto) 3.03 K/uL (1.40-6.50); Neutrophils % (auto) 66.5 %; Platelet Count 206 K/uL (130-400); RDW Coefficient of Variation 14.5 % (11.5-14.5); RDW Standard Deviation 46.7 fL (36.4-46.3); Red Blood Count 4.36 M/uL (4.20-5.40); White Blood Count 4.55 K/ul (4.8-10.8)
[2024-07-01 09:09] LABS: BUN Creatinine Ratio 23.4 (10-20); Creatinine Clr Calc Pharmacy 38.9 ml/min
[2024-07-01] MEDS: dexAMETHasone 6 MG in SYRINGE 0 ML IV SCH (09:21)
[2024-07-01] MEDS: DULoxetine HCL 60 MG CAP PO SCH (09:22)
[2024-07-01] MEDS: amLODIPine BESYLATE 5 MG TAB PO SCH (09:23)
[2024-07-01] MEDS: PANTOprazole 40 MG TAB PO SCH (09:23)
[2024-07-01] MEDS: FUROSEMIDE 40 MG/4 ML VIAL IV SCH (09:39)
[2024-07-01] MEDS: POLYETHYLENE (MIRALAX) 17 GM PACK PO SCH (09:39)
[2024-07-01] MEDS: PREGABALIN 75 MG CAP PO SCH (09:39)
--- NOTE | 2024-07-01 12:43 | Electrocardiogram Report ---
Test Reason : Blood Pressure : */* mmHG Vent. Rate : 77 BPM Atrial Rate : * BPM P-R Int : * ms QRS Dur : 112 ms QT Int : 390 ms P-R-T Axes : * -46 46 degrees QTcB Int : 441 ms Atrial fibrillation Left axis deviation Low voltage QRS Inferior infarct , age undetermined Cannot rule out Anteroseptal infarct (cited on or before 23-Aug-2014) Abnormal ECG When compared with ECG of 15-May-2024 10:53, Inferior infarct is now Present Questionable change in initial forces of Anterior leads Nonspecific T wave abnormality no longer evident in Lateral leads Confirmed by Vamsi Powers ([id number]) on 07/01/2024 12:43:28 PM Referred By: Dirk Cooper Confirmed By: Vamsi Powers
[2024-07-01] MEDS: FENOFIBRATE NANOCRYSTALLIZED 145 MG TABLET PO SCH (13:19)
[2024-07-01] MEDS: CINACALCET HCL 30 MG TAB PO SCH (13:19)
[2024-07-01] MEDS: DULoxetine HCL 30 MG CAP PO SCH (13:22)
[2024-07-01] MEDS: LOSARTAN POTASSIUM 50 MG TAB PO SCH (13:22)
--- NOTE | 2024-07-01 13:27 | Hospitalist Progress Note ---
Date of Service July 01, 2024 Assessment & Plan (1) COVID-19: Plan: with possible pneumonia from such she is <5 days into the illness currently day #2 of 5 of IV Remdesivir; LFTs stable; plan repeat ast/alt in am currently day #1 of IV dexamethasone 6mg daily add flutter valve cont incentive spirometry NC O2 as needed cont airborne precautions mild leukopenia/lymphopenia likely due to COVID itself- repeat CBC am (2) Acute exacerbation of CHF (congestive heart failure): Plan: acute/chronic diastolic CHF takes 40-80 mg PO Lasix daily based on weight echocardiogram 05/2024 (was hospitalized for diastolic CHF then) - EF 60-65%, mild aortic regurg, mild tricuspid regurg BNP 490 upon admission placed on IV lasix 40mg daily dry weight? does not overtly examine in CHF but [id number] cont IV lasix for now Creatinine stable on labs today; repeat BMP am needs better BP control (3) Acute hypoxic respiratory failure: Plan: 87% sats on RA at admission with documented RR of 26 in the ER sats improved with supplemental NC O2 2 L hypoxia 2nd to COVID-19 pneumonia +/- diastolic CHF treat COVID treat CHF (4) CKD (chronic kidney disease), stage III: Plan: stage 3b with baseline CrCl low 30s Cr today stable at 1.75 baseline Cr ~2 daily BMP while on IV lasix (5) Controlled type 2 diabetes mellitus, with long-term current use of insulin: Plan: most recent Hb A1C 6.1% continue home Lantus 5 units at bedtime continue novolog (6) Persistent atrial fibrillation: Plan: cont Eliquis cont metoprolol controlled (7) Hypothyroidism: Plan: TSH was 8 earlier this fall levothyroxine dose was increased in May (will clarify dosing with patient) repeat a TSH in am tomorrow (8) Morbid obesity with BMI of 50.0-59.9, adult: Plan: BMI 51 (9) Primary hyperparathyroidism: Plan: cont cinacalcet calcium level wnl Plan Chronic diagnoses: HTN - uncontrolled; increase amlodipine to 5mg BID; cont losartan, metoprolol, hydralazine, and lasix Anxiety/depression - continue duloxetine, trazodone chronic constipation continue MiraLAX daily GERD - continue PPI TIERRA - continue CPAP HS insomnia - continue melatonin HS anemia - H/H acceptable at this time VTE ppx: Emily Tolliver III, pt's son, updated by phone this evening PT, OT paresh requested Admission and Anticipated Discharge Date Admission Date: June 30, 2024 Subjective patient resting comfortably in the chair by the window watching the [employer] football game states she feels better today overall still with cough but no dyspnea still requiring 2 L NC O2 has O2 at home, but typically does not use it at rest (after 05/2024 admission 2-step ambulatory o2 test showed need for 2 L O2 with activity only) eating is normal has mild headache no fevers tele - afib, rates controlled Review of Systems Review of Systems: gen - no fevers or chills cv - no chest pain pulm - cough/congestion GI - no N/V today Physical Exam Physical Exam: gen - obese, NAD, pleasant neck - no obvious JVD mouth - MMM heart - irregularly irregular, s1 s2, no obvious murmur lungs - minimal rales L base, no wheeze, no increased work of breathing; decreased BS both bases abd - soft NT ND BS+ ext - pulses b/l feet 2+; trace edema b/l ankles psych - a/o x 3 Results & Data Results & Data Vital Signs (Past 12 Hours) Vital Signs Temp Pulse Pulse Resp BP Pulse Ox O2 Del Method 07/01/24 12:24 36.7 C 70 20 193/82 H 95 Nasal Cannula 07/01/24 11:21 64 07/01/24 07:11 36.7 C 71 20 171/89 H 91 Room Air 07/01/24 03:33 36.8 C 73 21 155/73 H 93 CPAP O2 Flow Rate 07/01/24 12:24 2 07/01/24 11:21 07/01/24 07:11 07/01/24 03:33 Laboratory Results Laboratory Results - last 24 hr 07/01/24 07/01/24 07/01/24 08:29 09:27 12:19 WBC 4.55 L RBC 4.36 Hgb 12.2 Hct 38.1 MCV 87.4 MCH 28.0 MCHC 32.0 RDW Std Deviation 46.7 H RDW Coeff of Jeanette 14.5 Plt Count 206 MPV 10.8 Immature Gran % (Auto) 1.1 Neut % (Auto) 66.5 Lymph % (Auto) 16.3 [place] % (Auto) 15.4 Eos % (Auto) 0.0 Baso % (Auto) 0.7 Neut # (Auto) 3.03 Lymph # (Auto) 0.74 L [place] # (Auto) 0.70 H Eos # (Auto) 0.00 Baso # (Auto) 0.03 Immature Gran # (Auto) 0.05 Sodium 144 Potassium 4.0 Chloride 107 Carbon Dioxide 29 Anion Gap 8 BUN 41 H Creatinine 1.75 H D Est Cr Clr Drug Dosing 38.9 eGFR 29.46 BUN/Creatinine Ratio 23.4 H Glucose 91 POC Glucose 120 H 107 H Calcium 9.0 Magnesium 2.0 Diagnostic Findings Chest X-Ray 06/30/24 14:54 XR chest 1V portable CLINICAL HISTORY: Dyspnea. COMPARISON STUDY: Chest radiograph May 15, 2024. Chest CT October 26, 2022. FINDINGS: Right shoulder arthroplasty is partially imaged. Patient is rotated. Cardiomegaly is unchanged. There is pulmonary vascular congestion. Apparent hazy right infrahilar and left basilar opacity is noted. There is no pneumothorax. Possible trace left pleural effusion. IMPRESSION: 1. Cardiomegaly with pulmonary vascular congestion. Possible trace left pleural effusion. 2. Apparent hazy right infrahilar and left basilar opacities. These may be art ifactual although pneumonia could appear similar. Radiographic follow-up to ensure resolution is recommended. ACT 112: Negative or not required by law. Electronically signed by: dK Maguire M.D. 06/30/2024 3:56 PM PG Care Time/CCT Total # of Minutes Spent Total Time Spent with Patient: Total time spent is greater than 50% in coordination of care (as documented) at patient's floor/unit and/or counseling patient: Coding Level of Care Code 49582 SUB INP/OBS CARE 3/50MIN Diagnoses COVID-19 U07.1 Acute exacerbation of CHF (congestive heart failure) I50.9 Acute hypoxic respiratory failure J96.01 CKD (chronic kidney disease), stage III N18.3 Controlled type 2 diabetes mellitus, with long-term current use of insulin E11.9; Z79.4 Persistent atrial fibrillation I48.19 Hypothyroidism E03.9 Morbid obesity with BMI of 50.0-59.9, adult E66.01; Z68.43 Primary hyperparathyroidism E21.0
[2024-07-01] MEDS: guaiFENesin 600 MG TABCR PO SCH (14:11)
[2024-07-01] MEDS: amLODIPine BESYLATE 5 MG TAB PO ONE (14:12)
[2024-07-01] MEDS: REMDESIVIR 100 MG in SODIUM CHLORIDE 0.9% 230 ML IV SCH (21:33)
[2024-07-02 06:43] LABS: Hemoglobin 11.9 g/dl (12.0-16.0); Mean Corpuscular Hemoglobin 27.9 pg (25.0-34.0); Mean Corpuscular Hgb Conc 32.2 g/dL (32.0-36.0); Mean Corpuscular Volume 86.9 fL (80.0-100.0); Mean Platelet Volume 10.8 fL (9.4-12.4); Platelet Count 207 K/uL (130-400); RDW Coefficient of Variation 14.6 % (11.5-14.5); RDW Standard Deviation 46.5 fL (36.4-46.3); Red Blood Count 4.26 M/uL (4.20-5.40); White Blood Count 6.23 K/ul (4.8-10.8)
[2024-07-02 07:05] LABS: BUN Creatinine Ratio 24.3 (10-20); Calcium 9.1 mg/dl (8.6-10.3); Creatinine Clr Calc Pharmacy 36.4 ml/min; Potassium 4.2 mmol/L (3.5-5.1)
[2024-07-02 07:21] LABS: Thyroid Stimulating Hormone 0.952 uIu/ml (0.300-4.500)
[2024-07-02] MEDS: amLODIPine BESYLATE 5 MG TAB PO SCH (08:33)
[2024-07-02] MEDS: CHLORZOXAZONE 750 MG PO SCH (14:32)
--- NOTE | 2024-07-02 19:27 | Hospitalist Progress Note ---
Date of Service July 02, 2024 Assessment & Plan (1) COVID-19: Plan: with possible pneumonia from such currently day #3 of 5 of IV Remdesivir; LFTs stable; plan repeat ast/alt in am currently day #2 of IV dexamethasone 6mg daily cont flutter valve cont incentive spirometry cont airborne precautions mild leukopenia/lymphopenia likely due to COVID itself- repeat CBC today with improved WBC ct during my visit I took her O2 off and her sats stayed 94-95% in room air (2) Acute exacerbation of CHF (congestive heart failure): Plan: acute/chronic diastolic CHF takes 40-80 mg PO Lasix daily based on weight echocardiogram 05/2024 (was hospitalized for diastolic CHF then) - EF 60-65%, mild aortic regurg, mild tricuspid regurg BNP 490 upon admission remains on IV lasix 40mg daily creatinine is stable on labs today repeat BMP am (3) Acute hypoxic respiratory failure: Plan: 87% sats on RA at admission with documented RR of 26 in the ER sats improved with supplemental NC O2 2 L hypoxia 2nd to COVID-19 pneumonia +/- diastolic CHF treat COVID treat CHF IMPROVED (4) CKD (chronic kidney disease), stage III: Plan: stage 3b with baseline CrCl low 30s Cr today stable once again baseline Cr ~2 daily BMP while on IV lasix (5) Controlled type 2 diabetes mellitus, with long-term current use of insulin: Plan: most recent Hb A1C 6.1% continue home Lantus 5 units at bedtime continue novolog (6) Persistent atrial fibrillation: Plan: cont Eliquis cont metoprolol controlled (7) Hypothyroidism: Plan: TSH was 8 earlier this fall levothyroxine dose was increased in May (will clarify dosing with patient) TSH today wnl (8) Morbid obesity with BMI of 50.0-59.9, adult: Plan: BMI 51 (9) Primary hyperparathyroidism: Plan: cont cinacalcet calcium level wnl Plan Chronic diagnoses: HTN - uncontrolled early in the admission but improved; cont increased amlodipine dosing of 5mg BID; cont losartan, metoprolol, hydralazine, and lasix Anxiety/depression - continue duloxetine, trazodone chronic constipation continue MiraLAX daily GERD - continue PPI TIERRA - continue CPAP HS insomnia - continue melatonin HS anemia - H/H remain acceptable VTE ppx: Emily Tolliver III, pt's son, updated by phone yesterday evening will update him again rosendo PT, OT paresh --> PT saw today, cleared to return home d/c home tomorrow? Wednesday? Admission and Anticipated Discharge Date Admission Date: June 30, 2024 Subjective tele - a.fib, rates controlled patient sitting in chair again feeling better still with cough, but no dyspnea at rest, and when she worked with PT she had no MARTIN mild hoarse voice no nausea, emesis, abd pain or diarrhea eating well Review of Systems Review of Systems: gen - no fevers or chills cv - no chest pain; no edema pulm - no wheezing Physical Exam Physical Exam: gen - obese, NAD, sitting in chair, hoarse voice - occasional cough as well neck - no obvious JVD mouth - MMM heart - irregularly irregular, s1 s2, no murmur lungs - scant rales L base, no wheeze, no increased work of breathing abd - soft NT ND BS+ ext - pulses b/l feet 2+; no edema b/l ankles psych - a/o x 3 Results & Data Results & Data Vital Signs (Past 12 Hours) Vital Signs Temp Pulse Pulse Resp BP Pulse Ox O2 Del Method 07/02/24 16:52 72 07/02/24 16:42 36.8 C 60 18 101/69 97 Nasal Cannula 07/02/24 12:25 36.8 C 62 19 157/87 H 96 Nasal Cannula 07/02/24 08:30 Nasal Cannula 07/02/24 08:06 54 L O2 Flow Rate 07/02/24 16:52 07/02/24 16:42 07/02/24 12:25 07/02/24 08:30 2 07/02/24 08:06 Laboratory Results Laboratory Results - last 24 hr 07/01/24 07/02/24 07/02/24 20:50 06:09 08:26 WBC 6.23 RBC 4.26 Hgb 11.9 L Hct 37.0 MCV 86.9 MCH 27.9 MCHC 32.2 RDW Std Deviation 46.5 H RDW Coeff of Jeanette 14.6 H Plt Count 207 MPV 10.8 Sodium 143 Potassium 4.2 Chloride 104 Carbon Dioxide 34 H Anion Gap 5 BUN 44 H Creatinine 1.81 H Est Cr Clr Drug Dosing 36.4 eGFR 28.29 BUN/Creatinine Ratio 24.3 H Glucose 91 POC Glucose 130 H 95 Calcium 9.1 AST 19 ALT 14 TSH 0.952 07/02/24 07/02/24 12:27 16:45 WBC RBC Hgb Hct MCV MCH MCHC RDW Std Deviation RDW Coeff of Jeanette Plt Count MPV Sodium Potassium Chloride Carbon Dioxide Anion Gap BUN Creatinine Est Cr Clr Drug Dosing eGFR BUN/Creatinine Ratio Glucose POC Glucose 112 H 138 H Calcium AST ALT TSH PG Care Time/CCT Total # of Minutes Spent Total Time Spent with Patient: Total time spent is greater than 50% in coordination of care (as documented) at patient's floor/unit and/or counseling patient: Coding Level of Care Code 33756 SUB INP/OBS CARE 235MIN Diagnoses COVID-19 U07.1 Acute exacerbation of CHF (congestive heart failure) I50.9 Acute hypoxic respiratory failure J96.01 CKD (chronic kidney disease), stage III N18.3 Controlled type 2 diabetes mellitus, with long-term current use of insulin E11.9; Z79.4 Persistent atrial fibrillation I48.19 Hypothyroidism E03.9 Morbid obesity with BMI of 50.0-59.9, adult E66.01; Z68.43 Primary hyperparathyroidism E21.0
[2024-07-03 06:26] LABS: BUN Creatinine Ratio 25.1 (10-20); Calcium 9.2 mg/dl (8.6-10.3); Creatinine Clr Calc Pharmacy 37.6 ml/min; Potassium 3.8 mmol/L (3.5-5.1)
[2024-07-03] MEDS: Nursing to Pharmacy Communication SCH (10:30)
[2024-07-03] MEDS: BENZONATATE 100 MG CAPSULE PO SCH (13:08)
[2024-07-03 15:38] VITALS: BP 128/81; PULSE 85; RESP 18; TEMP 97.7; O2SAT 92
--- NOTE | 2024-07-03 16:57 | Discharge Summary ---
Discharge Summary Date of Service July 03, 2024 Principal Dx & Hospital Course #1 = Principal Diagnosis (1) COVID-19: with possible pneumonia from such currently day #3 of 5 of IV Remdesivir; LFTs stable; plan repeat ast/alt in am currently day #2 of IV dexamethasone 6mg daily cont flutter valve cont incentive spirometry cont airborne precautions mild leukopenia/lymphopenia likely due to COVID itself- repeat CBC today with improved WBC ct during my visit I took her O2 off and her sats stayed 94-95% in room air (2) Acute exacerbation of CHF (congestive heart failure): acute/chronic diastolic CHF takes 40-80 mg PO Lasix daily based on weight echocardiogram 05/2024 (was hospitalized for diastolic CHF then) - EF 60-65%, mild aortic regurg, mild tricuspid regurg BNP 490 upon admission remains on IV lasix 40mg daily creatinine is stable on labs today repeat BMP am (3) Acute hypoxic respiratory failure: 87% sats on RA at admission with documented RR of 26 in the ER sats improved with supplemental NC O2 2 L hypoxia 2nd to COVID-19 pneumonia +/- diastolic CHF treat COVID treat CHF IMPROVED (4) CKD (chronic kidney disease), stage III: stage 3b with baseline CrCl low 30s Cr today stable once again baseline Cr ~2 daily BMP while on IV lasix (5) Controlled type 2 diabetes mellitus, with long-term current use of insulin: most recent Hb A1C 6.1% continue home Lantus 5 units at bedtime continue novolog (6) Persistent atrial fibrillation: cont Eliquis cont metoprolol controlled (7) Hypothyroidism: TSH was 8 earlier this fall levothyroxine dose was increased in May (will clarify dosing with patient) TSH today wnl (8) Morbid obesity with BMI of 50.0-59.9, adult: BMI 51 (9) Primary hyperparathyroidism: cont cinacalcet calcium level wnl Plan Chronic diagnoses: HTN - uncontrolled early in the admission but improved; cont increased amlodipine dosing of 5mg BID; cont losartan, metoprolol, hydralazine, and lasix Anxiety/depression - continue duloxetine, trazodone chronic constipation continue MiraLAX daily GERD - continue PPI TIERRA - continue CPAP HS insomnia - continue melatonin HS anemia - H/H remain acceptable VTE ppx: Emily Tolliver III, pt's son, updated by phone yesterday evening will update him again rosendo PT, OT paresh --> PT saw today, cleared to return home d/c home tomorrow? Wednesday? Admission HPI Per Admitting Provider Patient and her , Dr. Tolliver, seen at bedside. Patient is a 78-year-old female with a past medical history of CHF, CKD stage IV, type 2 diabetes with polyneuropathy, paroxysmal A-fib, obesity, hyperlipidemia, hypertension, GERD, hypothyroidism, anemia, and macular degeneration. She presents today due to hypoxia and shortness of breath after testing positive for COVID. Her also has COVID. She stated that yesterday she started with shortness of breath at rest and on exertion, along with a sore throat, watery rhinorrhea, cough, yellow/white sputum production, and a headache today that has now resolved. Her takes her weight daily and adjust her Lasix as needed. She is at 40 mg daily at baseline, if her weight is up and her blood pressure is stable he is to increase it to 80 daily. He gave her a dose of 80 this morning because her weight was up 2 pounds. He gives her the increased dose of 80 mg about 50% of the time. She has home oxygen as needed, her O2 sats this morning were 84% and she was placed on 2 L O2 by her . She has been consistent with using her CPAP overnight. Since taking the Lasix this morning, she has urinated frequently, 800 mL urine output recorded in ED so far. Patient denies fever, chills, dizziness, lightheadedness, vision changes, chest pain, abdominal pain, nausea, vomiting, diarrhea, constipation, edema, numbness, tingling. She wishes to be full code at this time. She took all of her home AM and afternoon medications today. Discharge Exam gen - obese, NAD, sitting in chair, hoarse voice - occasional cough as well neck - no obvious JVD mouth - MMM heart - irregularly irregular, s1 s2, no murmur lungs - scant rales L base, no wheeze, no increased work of breathing abd - soft NT ND BS+ ext - pulses b/l feet 2+; no edema b/l ankles psych - a/o x 3 Discharge Plan Discharge Items Patient Disposition: Home - Self-Care Reason For Visit: COVID,HYPOXIA,ACUTE CHF Discharge Diagnosis: 1. COVID-19 infection with possible pneumonia from same - improved 2. acute on chronic congestive heart failure - improved 3. sleep apnea 4. diabetes 5. chronic kidney disease, discharge creatinine level 1.75 6. high blood pressure - improved Activity: As commented below Activity Comment: gradually increase activities over the next week Non-emergency contact: Primary Care Provider Call non-emergency contact if: you have any medication questions, your symptoms worsen and you have a fever Follow-up/Referrals: Dirk Cooper, [Primary Care Provider] - 07/18/24 9:15 am (ALSO ON WAITLIST FOR SOONER IF AN OPENING OCCURS) Diet: Carb Consistent or DM2 and Low Sodium (2gm) Fluids: 1800ml (7 cups) Addtl Attending Provider Instructions: Mrs Tolliver, You were hospitalized due to COVID-19 infection. Your admission chest x-ray showed possible mild pneumonia from the COVID. You also may have had some mild fluid build-up in the lungs from congestive heart failure & chronic kidney disease. The COVID infection was treated with a combination of steroids and anti-viral medicine called Remdesivir. You received IV lasix for your congestive heart failure. With the above your COVID symptoms & your breathing improved. Physical & occupational therapy saw you in the hospital and felt you could return home with your family. In addition, we performed a walking oxygen test on day of discharge and at this time you do not need to use oxygen regularly while sitting or with activity. Your oxygen levels stayed above 90% during your 6-minute walk. At the beginning of the hospitalization your blood pressures were very high. We made a small adjustment with your morning amlodipine - we increased it from 2.5mg to 5mg. This small increase led to a nice reduction in your blood pressure. Recommendations - 1. dexamethasone steroid taper - start this tomorrow on 07/04/24, take with food. Know that steroids can raise your blood sugars and can also cause fluid retention. The dexamethasone is for your COVID infection. 2. for cough - * benzonatate 100mg every 8 hours as needed for cough; prescription sent to [facility] for you * [id number] Mucinex up to 1200mg twice daily as needed/as desired * albuterol inhaler - 2 puffs every 4 hours as needed for cough/wheeze/shortness of breath; be sure to use with spacer device (see handout) 3. please increase your morning amlodipine to 5mg for your high blood pressure. 4. continue to check your weight every morning on the same scale. Keep a log of your weights in a notebook. Your weight at discharge is ~299 pounds. Based on records this appears to be about your "dry weight." Please continue your furosemide diuretic as previous (40mg daily) and take 40mg extra as needed for weight gain as previously directed by your outpatient providers. 5. You are about 5-6 days into your COVID illness. You may still be contagious to others. I would plan to take it easy at home for the next couple of days and if you continue to feel better each day you can likely end "isolation" on 07/06/24. When you start to leave your home later this week I would recommend wearing a mask in public. This will reduce your risk of picking up other viruses (flu, etc) that are circulating in the community. 6. Cough & fatigue are typically the last COVID symptoms to fully resolve. Please rest as needed over the next few days as you recover at home. You potentially could have a lingering cough for another week or two (sometimes longer). 7. Please continue to use your flutter valve & incentive spirometer for several more days at home. Follow-up - see separate section Return to [facility] if - * you have fever over 100 degrees * you have worsening shortness of breath * you have chest pains * you develop severe nausea and/or vomiting * your oxygen levels on your finger using a pulse oximeter are consistently less than 90% * any other concerns It was our pleasure to care for you! Happy holidays and please continue to feel better! -Shaun Eaton Pending Studies at Discharge: No Stand-Alone Forms: My [facility] [employer], Smoking Cessation Medications and DC Order Prescriptions: New benzonatate 100 mg Capsule 100 mg PO TID PRN (Reason: cough) Qty: 20 0RF dexamethasone 2 mg tablet 2 mg PO DIRECTED Qty: 9 0RF Rx Instructions: start 07/04, take w/ food. 3 tabs PO QD x 1 day; 2 tabs PO QD x 2 days; 1 tab PO QD x 2 days. (DME) Oxygen Home Liters Per Minute See Rx Instructions .ROUTE .MEDSUPPLY Qty: 1 0RF Rx Instructions: 2 liters with sleep/naps (blend into CPAP) and as needed at other times. Continued amlodipine 5 mg tablet 5 mg PO PM Qty: 90 3RF albuterol sulfate 90 mcg/actuation HFA aerosol inhaler 1 - 2 puff inhalation Q4H PRN (Reason: shortness of breath or wheezing) Qty: 8.5 1RF fluticasone propionate 110 mcg/actuation HFA aerosol inhaler 1 puff inhalation BID PRN (Reason: Wheezing) Qty: 12 0RF (DME) pen needle, diabetic [BD Ultra-Fine Shanel Pen Needle] 32 gauge x 5/32" needle See Rx Instructions .ROUTE .MEDSUPPLY Qty: 100 3RF Rx Instructions: Use one daily with insulin chlorzoxazone 750 mg tablet 750 mg PO TID Qty: 270 1RF Rx Instructions: per , he breaks her third dose in half to give it a little earlier when she complains about her feet then the other half at bedtime (DME) OneTouch Verio test strips Strip See Rx Instructions .Route Qty: 200 11RF Rx Instructions: Test blood sugar 4 times a day Eliquis 5 mg tablet 5 mg PO .NOON AND BEDTIME Qty: 60 5RF melatonin 3 mg tablet 10 mg PO HS ondansetron 4 mg tablet,disintegrating 4 mg PO Q8H PRN (Reason: nausea and vomiting) Qty: 30 2RF Rx Instructions: per , she's been wanting to take pretty consistently in the evenings trazodone 50 mg tablet 100 mg PO HS PreserVision AREDS 4,296 mcg-226 mg-90 mg capsule 1 cap PO .QAM AND PM insulin glargine [Lantus Solostar U-100 Insulin] 100 unit/mL (3 mL) insulin pen 5 unit subcut HS polyethylene glycol 3350 [Miralax] 17 gram powder in packet 17 g PO QAM levothyroxine 175 mcg tablet 175 mcg PO UD Rx Instructions: Take in AM on empty stomach with water 30 min prior to any oral intake. only 6 days a week and half a tab (usually on wednesday) per hydralazine 50 mg tablet 50 mg PO TID Qty: 270 3RF furosemide 20 mg tablet 40 mg PO QAM Qty: 100 3RF Hold Instructions: Resume on 03/18/23. hold with daily weights and BMP Wednesday, can resume if weights climbing and/or creatinine improves Rx Instructions: may take up to 80 mg daily as needed for fluid retention thiamine HCl (vitamin B1) [Vitamin B-1] 50 mg Tablet 50 mg PO QAM Qty: 30 0RF metoprolol tartrate 25 mg tablet 25 mg PO .NOON AND BEDTIME triamcinolone acetonide 0.1 % ointment 1 applic topical BID PRN (Reason: .flare ups) (DME) CPAP Machine Rx Instructions: CPAP 16 cmH2O, [facility]; rabeprazole [AcipHex] 20 mg tablet,delayed release (DR/EC) 20 mg PO QAM acetaminophen 500 mg tablet 1,000 mg PO TID azelastine 137 mcg (0.1 %) spray,non-aerosol See Rx Instructions intranasal BID PRN (Reason: Other) Rx Instructions: 1 spray each nostril twice a day losartan 100 mg tablet 100 mg PO .AFTERNOON Rx Instructions: Takes mid-afternoon fluticasone propionate 50 mcg/actuation spray,suspension 2 spray intranasal BID PRN (Reason: Other) Rx Instructions: administer 2 sprays into each nostril twice daily cholecalciferol (vitamin D3) 25 mcg (1,000 unit) capsule 25 mcg PO .AFTERNOON cinacalcet [Sensipar] 30 mg tablet 30 mg PO .AFTERNOON Rx Instructions: Takes mid-afternoon duloxetine 30 mg capsule,delayed release(DR/EC) 30 mg PO .AFTERNOON duloxetine 60 mg capsule,delayed release(DR/EC) 60 mg PO QAM pregabalin [Lyrica] 75 mg capsule 75 mg PO UD Rx Instructions: 75 mg po qam and afternoon. then 150 mg at bedtime fenofibrate nanocrystallized 145 mg tablet 145 mg PO .NOON Rx Instructions: Takes 1200 Zyrtec 10 mg capsule 10 mg PO DAILY PRN (Reason: allergies ) Changed amlodipine 2.5 mg tablet 5 mg PO QAM Qty: 90 3RF No Action gabapentin 100 mg capsule 100 mg PO QID Qty: 120 1RF Discharge Orders: Discharge Order (Routine); Ordered 07/03/24 Ordered By: Shaun Barkley/Other Patient Handouts: Using an Inhaler with a Spacer Admission Data Admit Date/Time: 06/30/24 18:15 Attending Provider: Shaun Eaton Admit Provider: Thom Acosta Primary Care Provider: Dirk Cooper Other Providers: Thom Acosta Other Interventions: Discharge Summary Assessment (RN) Last Done: 07/03/24 15:29 Hospital Stay Data Consultations 06/30/24 17:31 ED Decision to Admit Stat Pending Results Patient Have Any Pending Studies at Discharge: No Discharge Instructions Given to Patient (Per Discharging Provider) Mrs Tolliver, Cecilio were hospitalized due to COVID-19 infection. Your admission chest x-ray showed possible mild pneumonia from the COVID. You also may have had some mild fluid build-up in the lungs from congestive heart failure & chronic kidney disease. The COVID infection was treated with a combination of steroids and anti-viral medicine called Remdesivir. You received IV lasix for your congestive heart failure. With the above your COVID symptoms & your breathing improved. Physical & occupational therapy saw you in the hospital and felt you could return home with your family. In addition, we performed a walking oxygen test on day of discharge and at this time you do not need to use oxygen regularly while sitting or with activity. Your oxygen levels stayed above 90% during your 6-minute walk. At the beginning of the hospitalization your blood pressures were very high. We made a small adjustment with your morning amlodipine - we increased it from 2.5mg to 5mg. This small increase led to a nice reduction in your blood pressure. Recommendations - 1. dexamethasone steroid taper - start this tomorrow on 07/04/24, take with food. Know that steroids can raise your blood sugars and can also cause fluid retention. The dexamethasone is for your COVID infection. 2. for cough - * benzonatate 100mg every 8 hours as needed for cough; prescription sent to [facility] for you * [id number] Mucinex up to 1200mg twice daily as needed/as desired * albuterol inhaler - 2 puffs every 4 hours as needed for cough/wheeze/shortness of breath; be sure to use with spacer device (see handout) 3. please increase your morning amlodipine to 5mg for your high blood pressure. 4. continue to check your weight every morning on the same scale. Keep a log of your weights in a notebook. Your weight at discharge is ~299 pounds. Based on records this appears to be about your "dry weight." Please continue your furosemide diuretic as previous (40mg daily) and take 40mg extra as needed for weight gain as previously directed by your outpatient [facility]. 5. You are about 5-6 days into your COVID illness. You may still be contagious to others. I would plan to take it easy at home for the next couple of days and if you continue to feel better each day you can likely end "isolation" on 07/06/24. When you start to leave your home later this week I would recommend wearing a mask in public. This will reduce your risk of picking up other viruses (flu, etc) that are circulating in the community. 6. Cough & fatigue are typically the last COVID symptoms to fully resolve. Please rest as needed over the next few days as you recover at home. You potentially could have a lingering cough for another week or two (sometimes longer). 7. Please continue to use your flutter valve & incentive spirometer for several more days at home. Follow-up - see separate section Return to [facility] if - * you have fever over 100 degrees * you have worsening shortness of breath * you have chest pains * you develop severe nausea and/or vomiting * your oxygen levels on your finger using a pulse oximeter are consistently less than 90% * any other concerns It was our pleasure to care for you! Happy holidays and please continue to feel better! -Shaun Eaton Coding Diagnoses COVID-19 U07.1 Acute exacerbation of CHF (congestive heart failure) I50.9 Acute hypoxic respiratory failure J96.01 CKD (chronic kidney disease), stage III N18.3 Controlled type 2 diabetes mellitus, with long-term current use of insulin E11.9; Z79.4 Persistent atrial fibrillation I48.19 Hypothyroidism E03.9 Morbid obesity with BMI of 50.0-59.9, adult E66.01; Z68.43 Primary hyperparathyroidism E21.0
[2024-07-03] MEDS: REMDESIVIR 100 MG in SODIUM CHLORIDE 0.9% 230 ML IV SCH (16:58)
== END 2024-07-03 18:19 | disposition home or self-care (01) | DRG 177 ==
LOC: ED 14:44 → 4W 18:15 → SUATTDRO 18:15 → 4W 20:37 → 2N 07-03 06:53